=== PATIENT | female | born 1945 | race Hispanic/Latino ===

== ENCOUNTER 2017-02-13 19:50 | Observation (INO) | payer MEDICARE, OTHER ==
[2017-02-13] MEDS ORDERED: Albuterol-Ipratrop 3 mg / 0.5 (3 ml) UD INH STA ×2 (21:08→21:58)
[2017-02-13] MEDS ORDERED: Albuterol-Ipratrop 3 mg / 0.5 (3 ml) UD ONE ×2 (21:13→22:04)
[2017-02-13 21:28] LABS: BASO % 0.6 % (0.0-2.0); EOS # 0.1 K/uL (0.0-0.7); EOS % 1.4 % (0.0-4.0); LYMPH % 12.3 % (20.0-40.0); MEAN CELL VOLUME 84.6 fL (81.0-99.0); MEAN CORPUSCULAR HEMOGLOBIN 29.9 pg (27.0-31.0); MEAN CORPUSCULAR HGB CONC 35.3 g/dL (33.0-37.0); MONO # 0.8 K/uL (0.0-0.8); MONO % 9.1 % (0.0-10.0); NEUT # 6.5 K/uL (1.8-7.0); NEUT % 76.6 % (50.0-75.0); RBC 4.36 Mil/uL (3.80-5.20); RED CELL DISTRIBUTION WIDTH 15.1 % (11.5-14.5); WHITE BLOOD COUNT 8.5 K/uL (4.8-10.8)
[2017-02-13 21:38] LABS: ALB/GLOB RATIO 1.2 (1.0-2.1); INR 1.1; PROTHROMBIN TIME 12.4 SECONDS (9.7-12.2)
[2017-02-13 21:39] LABS: CALCIUM 9.5 mg/dl (8.6-10.4)
--- NOTE | 2017-02-13 22:50 | C.PDOC ---
History Of Present Illness 71 y/o female wiht hx copd, currently smokes, c/o productive cough with whit sputum and sob x 1 month, no fever or chills. pt using nebulizer at home 3 times a day with no improvement. pt also c/o pain to to dorsum of right hand that she woke up with today with no hx of injury to hand, no hx gout. Time Seen by Provider: 02/13/17 20:42 Chief Complaint (Nursing): Upper Extremity Problem/Injury History Per: Patient, Family History/Exam Limitations: no limitations Onset/Duration Of Symptoms: Days Current Symptoms Are (Timing): Worse Quality: "Pain" Severity: Moderate Recent travel outside of the [place]: No Past Medical History Reviewed: Historical Data, Nursing Documentation, Vital Signs Vital Signs: Last Vital Signs Temp 98.2 F 02/14/17 00:30 Pulse 111 H 02/14/17 00:30 Resp 18 02/14/17 01:52 BP 133/79 02/14/17 00:30 Pulse Ox 95 02/14/17 03:04 - Medical History PMH: COPD, HTN, Hyperlipidemia Other PMH: circulation problems Other Surgeries: bilateral lower ext stents Family History: States: Unknown Family Hx - Social History Hx Tobacco Use: Yes Hx Alcohol Use: No Hx Substance Use: No - Immunization History Hx Tetanus Toxoid Vaccination: No Hx Influenza Vaccination: Yes Hx Pneumococcal Vaccination: No Review Of Systems Constitutional: Positive for: Chills. Negative for: Fever ENT: Negative for: Ear Pain, Mouth Pain, Throat Pain Cardiovascular: Negative for: Chest Pain, Palpitations, Edema Respiratory: Positive for: Cough, Shortness of Breath, Pleuritic Pain, Sputum, Wheezing. Negative for: Hemoptysis Gastrointestinal: Negative for: Nausea, Vomiting, Abdominal Pain Genitourinary: Negative for: Dysuria, Frequency Musculoskeletal: Negative for: Neck Pain Skin: Negative for: Rash Neurological: Negative for: Weakness, Incoordination Physical Exam - Physical Exam Appears: Non-toxic, No Acute Distress Skin: Normal Color, Warm, Dry Head: Atraumatic, Normacephalic Eye(s): bilateral: Normal Inspection, PERRL, EOMI Nose: Normal Oral Mucosa: Moist Tongue: Normal Appearing Lips: Normal Appearing Throat: Normal Neck: Normal ROM, No Midline Cervical Tenderness, Paracervical Tenderness, Supple Chest: No Deformity (khyphotic), No Tenderness Cardiovascular: Rhythm Regular, No Murmur Respiratory: Decreased Breath Sounds, No Rales, Wheezing Gastrointestinal/Abdominal: Bowel Sounds, Tenderness Extremity: Tenderness (dorsum right wrist erythematous and warm, with swelling to hand and fingers. dec rom ant wrist 2/2 pain. ) Pulses: Left Dorsalis Pedis: Decreased, Right Dorsalis Pedis: Decreased (feet cool to touch) Neurological/Psych: Oriented x3, Normal Speech, Normal Cognition, Normal Cranial Nerves ED Course And Treatment - Laboratory Results Result Diagrams: 02/13/17 21:21 02/13/17 21:21 ECG: Interpreted By Me, Viewed By Me ECG Rhythm: Sinus Rhythm ECG Interpretation: Normal Rate From EC O2 Sat by Pulse Oximetry: 95 Medical Decision Making Medical Decision Making: pt still wheezing after first neb. treatment. poor effort on pf meter, pf less than 60. pt wheezing still after second meb tx. pt walked aorund ed; seated hr 111 o2 sat 95, after walking around in ed: o2 sat is 92 and hr [address] Brothers, will admit to his service Disposition Discussed With .: Александр Brothers Doctor Will See Patient In The: Hospital - Disposition Disposition: HOSPITALIZED Disposition Time: 23:09 Condition: STABLE - Clinical Impression Clinical Impression: COPD with exacerbation, Cellulitis of hand, right Decision To Admit - Pt Status Changed To: Hospital Disposition Of: Observation - . Bed Request Type: Regular Admitting Physician: Александр Brothers Patient Diagnosis: COPD with exacerbation, Cellulitis of hand, right
[2017-02-13] MEDS ORDERED: cefTRIAXone IV 1 gm in Dextros 50 ML IVPB ONE (23:17)
--- NOTE | 2017-02-14 01:43 | CP.PCM.HP ---
<Virginia GanLouise - Last Filed: 02/14/17 01:38> History of Present Illness - History of Present Illness History of Present Illness: CC: Shortness of breath and right hand pain HPI: Patient is a 71 year old female with PMHx of HTN, stents in legs for circulation, COPD, who comes in today for worsening shortness of breath. Patient has been having trouble breathing this past week and has been using 3 nebulizer treatments per day with some relief. The past day she did not get much relief from the nebulizer treatments and was very short of breath. Additionally, the patient woke up with right hand edema and erythema. Patient had no trauma or wound to the right hand. Patient is unable to close hand because of pain. Patient denies headache, chest pain, nausea, vomiting, abdominal pain, constipation, diarrhea. Patient lives with granddaughter, but is able to perform all of her ADLs alone and is independent. PMD: Dr. Laura Allergies:NKDA PMHx: HTN, COPD Psurgical: Stents in legs for circulation, appendectomy 50 years ago, abdominal hernia (2013) Famhx: father and mother of MIs Social: smokes 1/2 pack per day for 60 years. denies alcohol and drugs. Present on Admission - Present on Admission Any Indicators Present on Admission: No History of DVT/PE: No History of Uncontrolled Diabetes: No Urinary Catheter: No Decubitus Ulcer Present: No Review of Systems - Constitutional Constitutional: absent: Fatigue, Headache, Lethargy - EENT Eyes: absent: Blurred Vision Nose/Mouth/Throat: absent: Nasal Congestion, Post Nasal Drip, Mouth Pain, Neck Pain - Cardiovascular Cardiovascular: Dyspnea, Leg Edema. absent: Chest Pain, Palpitations - Respiratory Respiratory: Dyspnea, Dyspnea on Exertion - Gastrointestinal Gastrointestinal: absent: Constipation, Diarrhea, Vomiting - Musculoskeletal Musculoskeletal: Myalgias - Integumentary Integumentary: absent: Changing Lesions, Wounds - Neurological Neurological: absent: Behavioral Changes, Dizziness - Psychiatric Psychiatric: absent: Confusion - Endocrine Endocrine: absent: Fatigue, Palpitations - Hematologic/Lymphatic Hematologic: absent: Easy Bleeding, Easy Bruising Past Patient History - Infectious Disease Hx of Infectious Diseases: None - Past Medical History & Family History Past Medical History?: Yes - Past Social History Smoking Status: Former Smoker - CARDIAC Hx Cardiac Disorders: Yes Hx Hypertension: Yes Other/Comment: Hyperlipidemia - PULMONARY Hx Respiratory Disorders: Yes - NEUROLOGICAL Hx Neurological Disorder: No - HEENT Hx HEENT Problems: No - RENAL Hx Chronic Kidney Disease: No - ENDOCRINE/METABOLIC Hx Endocrine Disorders: No - HEMATOLOGICAL/ONCOLOGICAL Hx Blood Disorders: No - INTEGUMENTARY Hx Dermatological Problems: No - MUSCULOSKELETAL/RHEUMATOLOGICAL Hx Musculoskeletal Disorders: No - GASTROINTESTINAL Hx Gastrointestinal Disorders: No - GENITOURINARY/GYNECOLOGICAL Hx Genitourinary Disorders: No - PSYCHIATRIC Hx Psychophysiologic Disorder: No Hx Substance Use: No - SURGICAL HISTORY Hx Surgeries: Yes Other/Comment: 4 stents placed for blood clots in legs. - ANESTHESIA Hx Anesthesia: Yes Hx Anesthesia Reactions: No Hx Malignant Hyperthermia: No Has any member of the family had a problem w/ anesthesia?: No Meds Allergies/Adverse Reactions: Allergies Allergy/AdvReac Type Severity Reaction Status Date / Time No Known Allergies Allergy Verified 02/13/17 20:14 Physical Exam - Constitutional Appears: Non-toxic, No Acute Distress - Head Exam Head Exam: ATRAUMATIC, NORMAL INSPECTION, NORMOCEPHALIC - Eye Exam Eye Exam: EOMI, Normal appearance, PERRL - ENT Exam ENT Exam: Mucous Membranes Moist, Normal Exam - Neck Exam Neck exam: Positive for: Normal Inspection - Respiratory Exam Respiratory Exam: Rhonchi - Cardiovascular Exam Cardiovascular Exam: REGULAR RHYTHM, RRR - GI/Abdominal Exam GI & Abdominal Exam: Normal Bowel Sounds, Soft - Extremities Exam Extremities exam: Positive for: normal inspection, pedal edema Additional comments: trace pedal edema on left - Back Exam Back exam: NORMAL INSPECTION - Neurological Exam Neurological exam: Alert, Oriented x3 - Psychiatric Exam Psychiatric exam: Normal Affect, Normal Mood - Skin Skin Exam: Intact, Normal Color, Warm Results - Vital Signs Recent Vital Signs: Last Vital Signs Temp 98.2 F 02/14/17 00:30 Pulse 111 H 02/14/17 00:30 Resp 20 02/14/17 00:30 BP 133/79 02/14/17 00:30 Pulse Ox 95 02/14/17 00:30 - Labs Result Diagrams: 02/13/17 21:21 02/13/17 21:21 Assessment & Plan - Assessment and Plan (Free Text) Assessment: 1. COPD exacerbation solumedrol 60 q8h duonebs q4h pulm consult, Dr. Stokes, help appreciated 2l NC PRN cxray 2. Hand Erythema/Edema f/u wrist xray monitor 3. HTN Losartan 100 mg PO daily HCTZ 25 mg po daily Crestor 10 mg po HS 4. Hx stents Cilostazol 100 mg po daily Plavix 75 mg po daily 5. Prophylactic measures pepcid 20 mg po BID SCDs <Александр Brothers - Last Filed: 02/14/17 06:13> Results - Vital Signs Recent Vital Signs: Last Vital Signs Temp 98.2 F 02/14/17 00:30 Pulse 111 H 02/14/17 00:30 Resp 18 02/14/17 01:52 BP 133/79 02/14/17 00:30 Pulse Ox 95 02/14/17 03:11 - Labs Result Diagrams: 02/13/17 21:21 02/13/17 21:21 Assessment & Plan - Date & Time Date: 02/14/17 (I have seen and examined the patient. I agree with the findings and plan of care as documented by Dr. Gan. Patient with COPD exacerbation. Nebs, Solumedrol, oxygen, and consult to pulm. Smoking cessation recommended. Follow up official xray results for hand erythema and swelling. Denies trauma. Continue home meds for history of hypertension. Monitor for acute changes.) Time: 06:11 Attending/Attestation - Attestation I have personally seen and examined this patient.: Yes I have fully participated in the care of the patient.: Yes I have reviewed all pertinent clinical information: Yes
[2017-02-14] MEDS: Albuterol-Ipratrop 3 mg / 0.5 (3 ml) UD INH SCH ×4 (08:28→19:13)
[2017-02-14 08:29] VITALS: RESP 20
[2017-02-14] MEDS: Cilostazol 100 mg Tab UD PO SCH (09:45)
--- NOTE | 2017-02-14 09:57 | RAD ---
HISTORY: SOB COMPARISON: No prior. TECHNIQUE: Chest PA and lateral FINDINGS: LUNGS: Lung shea are hyperinflated ; rule out chronic changes of emphysema or COPD. Mild bibasilar atelectasis. Mild biapical pleural thickening PLEURA: No significant pleural effusion identified. No pneumothorax apparent. CARDIOVASCULAR: Heart size is upper limits of normal. . OSSEOUS STRUCTURES: Mild multilevel degenerative spondylosis of the thoracic spine mild chronic anterior wedge deformities of a few thoracic segments VISUALIZED UPPER ABDOMEN: Normal. OTHER FINDINGS: None. IMPRESSION: Mild hyperinflation; rule out chronic changes of emphysema or COPD. Mild bibasilar atelectasis. . Mild biapical pleural thickening.
--- NOTE | 2017-02-14 10:44 | RAD ---
PROCEDURE: Right wrist HISTORY: Redness and swelling COMPARISON: No prior FINDINGS: BONES: No evidence of acute displaced fracture nor dislocation. The osseous structures appear intact. 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 Triscaphe degenerative changes with DJD greater multangular/1st metacarpal. Small to medium-sized cystic focus seen within the navicular with smaller cystic changes in the capitate and lunate. Degenerative changes of the carpometacarpal articulations, MCP joints as well as the DIP joint 1st finger. Mild degenerative changes of the PIP joint 5th finger. JOINTS: As above. SOFT TISSUES: There is a tiny calcific density within the dorsal soft tissues at the level of the carpus nonspecific. This could represent some old posttraumatic mineralization. OTHER FINDINGS: None. IMPRESSION: No no definitive evidence of acute displaced fracture nor dislocation. Mcneal. Multi articular DJD as described. .
--- NOTE | 2017-02-14 18:07 | CP.PCM.PN ---
<Kevin Mayes - Last Filed: 02/14/17 17:45> Subjective - Date & Time of Evaluation Date of Evaluation: 02/14/17 Time of Evaluation: 17:45 - Subjective Subjective: PGY-[address] Suárez's service: Pt seen and examined at bedside. Nursing reports no acute events overnight. Pt reports breathing better this AM, especially after duoneb treatment. She denies getting up and walking around yet this morning, but feels like her shortness of breath is improved at rest. Pt reports continued pain in her right hand, she rates as 4/10 dull pain. 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 She reports history of arthritis that she had told PMD about, but denies any treatment as outpatient. Objective - Vital Signs/Intake and Output Vital Signs (last 24 hours): Temp Pulse Resp BP Pulse Ox 98.0 F 119 H 20 129/70 95 02/14/17 15:10 02/14/17 15:10 02/14/17 15:10 02/14/17 15:10 02/14/17 15:10 Intake and Output: 02/14/17 02/14/17 06:59 18:59 Intake Total 360 Balance 360 - Medications Medications: Current Medications Albuterol/Ipratropium (Duoneb 3 Mg/0.5 Mg (3 Ml) Ud) 3 ml INH RQ4 [facility] Last Admin: 02/14/17 15:29 Dose: 3 ml Cilostazol (Pletal) 100 mg PO DAILY [facility] Last Admin: 02/14/17 09:45 Dose: 100 mg Clopidogrel Bisulfate (Plavix) 75 mg PO DAILY [facility] Last Admin: 02/14/17 09:45 Dose: 75 mg Famotidine (Pepcid) 20 mg PO BID [facility] Last Admin: 02/14/17 17:15 Dose: 20 mg Hydrochlorothiazide (Hydrodiuril) 25 mg PO DAILY [facility] Last Admin: 02/14/17 09:45 Dose: 25 mg Losartan Potassium (Cozaar) 100 mg PO DAILY [facility] Last Admin: 02/14/17 09:45 Dose: 100 mg Methylprednisolone (Solu-Medrol) 60 mg IVP Q8H [facility] Last Admin: 02/14/17 14:21 Dose: 60 mg Pneumococcal Polyvalent Vaccine (Pneumovax 23 Vaccine) 0.5 ml IM .ONCE ONE Stop: 02/16/17 10:01 Rosuvastatin Calcium (Crestor) 10 mg PO HS [facility] - Labs Labs: PT 12.4 SECONDS (9.7-12.2) H 02/13/17 21:21 INR 1.1 02/13/17 21:21 APTT 27 SECONDS (21-34) 02/13/17 21:21 - Constitutional Appears: Non-toxic, No Acute Distress - Head Exam Head Exam: ATRAUMATIC, NORMAL INSPECTION - Eye Exam Eye Exam: EOMI. absent: Scleral icterus Pupil Exam: PERRL - ENT Exam ENT Exam: Mucous Membranes Moist - Respiratory Exam Respiratory Exam: Rhonchi, Wheezes (chronic smoker). absent: Decreased Breath Sounds - Cardiovascular Exam Cardiovascular Exam: Tachycardia, +S1, +S2 Additional comments: Pt right after breathing treatment - GI/Abdominal Exam GI & Abdominal Exam: Soft, Normal Bowel Sounds. absent: Tenderness - Extremities Exam Extremities Exam: Normal Inspection. absent: Pedal Edema, Tenderness Additional comments: no pitting edema on left - Neurological Exam Neurological Exam: Alert, Awake, Oriented x3 - Psychiatric Exam Psychiatric exam: Normal Affect, Normal Mood - Skin Skin Exam: Normal Color, Warm Assessment and Plan - Assessment and Plan (Free Text) Plan: 1. COPD exacerbation Pt reports intermediate history of smoking - uses nebulizer at home, denies home O2 CXR (02/14/17): Mild hyperinflation. R/o chronic changes of emphysema or COPD. Mild bibasilar atelectasis. Mild biapical pleural thickening. (see full report) solumedrol 60 q8h IV duonebs q4h pulm consult, Dr. Stokes, help appreciated -f/u reccs 2l NC PRN 2. Hand Erythema/Edema Pt reports history of arthritis Wrist Xray (02/14/17): No definitive evidence of acute displaced fracture nor dislocation. Multi-articular DJD as described. (see full report) Tylenol 650mg PO for pain NSAIDs C/I 3. HTN Normotensive today Losartan 100 mg PO daily HCTZ 25 mg po daily 4. CAD Crestor 10 mg po HS 5. PVD with Hx stents Cilostazol 100 mg po daily Plavix 75 mg po daily 6. Prophylactic measures Pepcid 20 mg po BID SCDs Heparin 5000u SC Q12H Discussed with Dr. Kamini Mayes PGY-1 <Alyssa Suárez V - Last Filed: 02/14/17 22:03> Objective - Vital Signs/Intake and Output Vital Signs (last 24 hours): Temp Pulse Resp BP Pulse Ox 98.0 F 119 H 20 129/70 95 02/14/17 15:10 02/14/17 15:10 02/14/17 15:10 02/14/17 15:10 02/14/17 15:10 Intake and Output: 02/14/17 02/15/17 18:59 06:59 Intake Total 360 Balance 360 - Medications Medications: Current Medications Acetaminophen (Tylenol 325mg Tab) 650 mg PO Q6 PRN PRN Reason: Pain, Mild (1-3) Albuterol/Ipratropium (Duoneb 3 Mg/0.5 Mg (3 Ml) Ud) 3 ml INH RQ4 [facility] Last Admin: 02/14/17 19:13 Dose: 3 ml Cilostazol (Pletal) 100 mg PO DAILY [facility] Last Admin: 02/14/17 09:45 Dose: 100 mg Clopidogrel Bisulfate (Plavix) 75 mg PO DAILY [facility] Last Admin: 02/14/17 09:45 Dose: 75 mg Famotidine (Pepcid) 20 mg PO BID [facility] Last Admin: 02/14/17 17:15 Dose: 20 mg Heparin Sodium (Porcine) (Heparin) 5,000 units SC Q12 [facility] Last Admin: 02/14/17 21:17 Dose: 5,000 units Hydrochlorothiazide (Hydrodiuril) 25 mg PO DAILY [facility] Last Admin: 02/14/17 09:45 Dose: 25 mg Losartan Potassium (Cozaar) 100 mg PO DAILY [facility] Last Admin: 02/14/17 09:45 Dose: 100 mg Methylprednisolone (Solu-Medrol) 60 mg IVP Q8H [facility] Last Admin: 02/14/17 21:17 Dose: 60 mg Pneumococcal Polyvalent Vaccine (Pneumovax 23 Vaccine) 0.5 ml IM .ONCE ONE Stop: 02/16/17 10:01 Rosuvastatin Calcium (Crestor) 10 mg PO HS [facility] Last Admin: 02/14/17 21:16 Dose: 10 mg - Labs Labs: PT 12.4 SECONDS (9.7-12.2) H 02/13/17 21:21 INR 1.1 02/13/17 21:21 APTT 27 SECONDS (21-34) 02/13/17 21:21 Attending/Attestation - Attestation I have personally seen and examined this patient.: Yes I have fully participated in the care of the patient.: Yes I have reviewed all pertinent clinical information, including history, physical exam and plan: Yes Notes (Text): Patient seen, examined, and case discussed with day-time resident. Patient seen in the morning during nebulizer treatment. Patient reports breathing is very good. Patient reports her main issue is her right hand which appears visibly more swollen compared to her left hand. Patient denies trauma to the right hand. Denies allergies. Patient reports history of arthritis but has not swelling quite like this. Reviewed patient's hand xray no acute fracture. Patient is currently on IV steroids to address COPD exacerbation; which will reduce inflammation coincidently. Patient order for dose Lasix 20mg IVX1 to reduce swelling as well. Awaiting initial pulm eval Assessment/Plan 1. 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 R/o chronic changes of emphysema or COPD. Mild bibasilar atelectasis. Mild biapical pleural thickening. (see full report) * Will lower to Solumedrol 40mg IV Q 8 hours * duonebs q4h * Pulm consult, Dr. Stokes, help appreciated * f/u reccs * 2l NC PRN 2. Hand Erythema/Edema * Pt reports history of arthritis; unclear if OA or rheumatoid arthritis * Wrist Xray (02/14/17): No definitive evidence of acute displaced fracture nor dislocation. Multi-articular DJD as described. (see full report) * Tylenol 650mg PO for pain * NSAIDs C/I * Given dose of Lasix 20mg IV to reduce swelling 3. Hypertension * Losartan 100 mg PO daily * HCTZ 25 mg po daily 4. CAD * Crestor 10 mg po HS * Plavix 75 mg po daily * Losartan 100 mg PO daily * HCTZ 25 mg po daily 5. PVD with Hx stents * Cilostazol 100 mg po daily * Plavix 75 mg po daily 6. Prophylactic measures * Pepcid 20 mg po BID * contraindcations SCDs secondary to PVD * Heparin 5000u SC Q12H * Physical therapy eval
[2017-02-14] MEDS ORDERED: MethylPREDNISolone 40 mg Vial IVP SCH (22:04)
[2017-02-14] MEDS ORDERED: Promethazine/Cod 6.25mg-10mg/5ml Syr UD PO PRN (22:05)
[2017-02-15] MEDS: Albuterol-Ipratrop 3 mg / 0.5 (3 ml) UD INH SCH ×5 (00:54→16:00)
[2017-02-15] MEDS: MethylPREDNISolone 40 mg Vial IVP SCH ×2 (05:50→13:26)
--- NOTE | 2017-02-15 07:16 | CP.PCM.CON ---
History of Present Illness - History of Present Illness History of Present Illness: admitted for exacerbation of copd, only uses a neb at home smoker Review of Systems - Respiratory Respiratory: Dyspnea on Exertion Past Patient History - Infectious Disease Hx of Infectious Diseases: None - Past Medical History & Family History Past Medical History?: Yes - Past Social History Smoking Status: Former Smoker - CARDIAC Hx Hypertension: Yes - PULMONARY Hx Chronic Obstructive Pulmonary Disease (COPD): Yes - NEUROLOGICAL Hx Neurological Disorder: No - HEENT Hx HEENT Problems: No - RENAL Hx Chronic Kidney Disease: No - ENDOCRINE/METABOLIC Hx Endocrine Disorders: No - HEMATOLOGICAL/ONCOLOGICAL Hx Blood Disorders: No - INTEGUMENTARY Hx Dermatological Problems: No - MUSCULOSKELETAL/RHEUMATOLOGICAL Hx Falls: No - GASTROINTESTINAL Hx Gastrointestinal Disorders: No - GENITOURINARY/GYNECOLOGICAL Hx Genitourinary Disorders: No - PSYCHIATRIC Hx Substance Use: No - SURGICAL HISTORY Hx Surgeries: Yes Other/Comment: 4 stents placed for blood clots in legs. - ANESTHESIA Hx Anesthesia: Yes Hx Anesthesia Reactions: No Hx Malignant Hyperthermia: No Has any member of the family had a problem w/ anesthesia?: No Meds Allergies/Adverse Reactions: Allergies Allergy/AdvReac Type Severity Reaction Status Date / Time No Known Allergies Allergy Verified 02/13/17 20:14 - Medications Medications: Current Medications Acetaminophen (Tylenol 325mg Tab) 650 mg PO Q6 PRN PRN Reason: Pain, Mild (1-3) Albuterol/Ipratropium (Duoneb 3 Mg/0.5 Mg (3 Ml) Ud) 3 ml INH RQ4 [facility] Last Admin: 02/15/17 04:08 Dose: Not Given Cilostazol (Pletal) 100 mg PO DAILY [facility] Last Admin: 02/14/17 09:45 Dose: 100 mg Clopidogrel Bisulfate (Plavix) 75 mg PO DAILY [facility] Last Admin: 02/14/17 09:45 Dose: 75 mg Famotidine (Pepcid) 20 mg PO BID [facility] Last Admin: 02/14/17 17:15 Dose: 20 mg Heparin Sodium (Porcine) (Heparin) 5,000 units SC Q12 [facility] Last Admin: 02/14/17 21:17 Dose: 5,000 units Hydrochlorothiazide (Hydrodiuril) 25 mg PO DAILY [facility] Last Admin: 02/14/17 09:45 Dose: 25 mg Losartan Potassium (Cozaar) 100 mg PO DAILY [facility] Last Admin: 02/14/17 09:45 Dose: 100 mg Methylprednisolone (Solu-Medrol) 40 mg IVP Q8 [facility] Last Admin: 02/15/17 05:50 Dose: 40 mg Pneumococcal Polyvalent Vaccine (Pneumovax 23 Vaccine) 0.5 ml IM .ONCE ONE Stop: 02/16/17 10:01 Promethazine HCl/Codeine (Phenergan/Codeine Oral Syrup) 5 ml PO Q4 PRN PRN Reason: Cough Rosuvastatin Calcium (Crestor) 10 mg PO HS [facility] Last Admin: 02/14/17 21:16 Dose: 10 mg Physical Exam - Constitutional Appears: No Acute Distress - Head Exam Head Exam: ATRAUMATIC, NORMOCEPHALIC - Eye Exam Eye Exam: Normal appearance - ENT Exam ENT Exam: Mucous Membranes Moist - Respiratory Exam Respiratory Exam: Decreased Breath Sounds - Cardiovascular Exam Cardiovascular Exam: +S1, +S2 - GI/Abdominal Exam GI & Abdominal Exam: Normal Bowel Sounds - Rectal Exam Rectal Exam: Deferred - Neurological Exam Neurological exam: Alert, Oriented x3 - Psychiatric Exam Psychiatric exam: Normal Affect, Normal Mood - Skin Skin Exam: Intact Results - Vital Signs Recent Vital Signs: Last Vital Signs Temp 98.3 F 02/15/17 00:00 Pulse 105 H 02/15/17 00:00 Resp 20 02/15/17 00:00 BP 126/67 02/15/17 00:00 Pulse Ox 95 02/15/17 00:00 - Labs Result Diagrams: 02/13/17 21:21 02/13/17 21:21 Assessment & Plan (1) COPD with exacerbation Status: Acute Comment: will need controler inhalers at home in addition to neb. smoking cessation (2) Tobacco abuse Status: Acute
[2017-02-15 07:57] LABS: BASO % 0.1 % (0.0-2.0); HEMOGLOBIN 12.3 g/dL (11.0-16.0); LYMPH # 0.6 K/uL (1.0-4.3); LYMPH % 3.2 % (20.0-40.0); MEAN CELL VOLUME 83.4 fL (81.0-99.0); MEAN CORPUSCULAR HEMOGLOBIN 29.2 pg (27.0-31.0); MEAN PLATELET VOLUME 7.3 fL (7.2-11.7); MONO # 0.6 K/uL (0.0-0.8); MONO % 3.6 % (0.0-10.0); NEUT # 15.9 K/uL (1.8-7.0); NEUT % 93.1 % (50.0-75.0); PLATELET COUNT 248 K/uL (130-400); RED CELL DISTRIBUTION WIDTH 14.8 % (11.5-14.5)
[2017-02-15 07:59] LABS: WHITE BLOOD COUNT 17.1 K/uL (4.8-10.8)
[2017-02-15] MEDS ORDERED: Tiotropium 18 mcg Cap For Inhalation INH SCH (08:00)
[2017-02-15] MEDS ORDERED: Fluticasone-Salmeterol 250-50mcg Diskus INH SCH (08:00)
[2017-02-15 08:17] LABS: ALBUMIN 3.7 g/dL (3.5-5.0)
[2017-02-15 08:20] LABS: ALB/GLOB RATIO 1.3 (1.0-2.1)
[2017-02-15 08:21] LABS: CALCIUM 8.9 mg/dl (8.6-10.4); URIC ACID 4.8 mg/dL (2.2-7.5)
[2017-02-15 08:22] LABS: MAGNESIUM 1.8 mg/dL (1.6-2.3)
[2017-02-15 08:24] VITALS: BP 127/67; PULSE 96; O2SAT 97
[2017-02-15 08:41] LABS: LYMPHOCYTE 3 % (20-40); TOTAL CELLS COUNTED 100
[2017-02-15 08:42] LABS: MONOCYTE 1 % (0-10); NEUTROPHIL 96 % (50-75); PLATELET ESTIMATE NORMAL (NORMAL)
[2017-02-15] MEDS: Cilostazol 100 mg Tab UD PO SCH (09:40)
[2017-02-15] MEDS ORDERED: Pneumococcal 23-Valent Vaccine IM ONE (14:00)
[2017-02-15 16:00] VITALS: TEMP 97.3
[2017-02-15] MEDS ORDERED: MethylPREDNISolone 40 mg Vial IVP SCH (22:00)
--- NOTE | 2017-02-15 23:23 | CP.PCM.DIS ---
Provider - Provider Date of Admission: 02/13/17 23:06 Attending physician: Александр Brothers MD Primary care physician: DR. FRANCI LAURA (PMD) Consults: Pulm: Kike Time Spent in preparation of Discharge (in minutes): 40 Diagnosis - Discharge Diagnosis (1) COPD with exacerbation Status: Acute Comment: see hospital course (2) Osteoarthritis Status: Acute Comment: Right wrist/hand xray: evidence of osteoarthritis (see full report) Hospital Course - Lab Results Lab Results: Most Recent Lab Values WBC 17.1 K/uL (4.8-10.8) H D 02/15/17 07:28 RBC 4.20 Mil/uL (3.80-5.20) 02/15/17 07:28 Hgb 12.3 g/dL (11.0-16.0) 02/15/17 07: Hct 35.0 % (34.0-47.0) 02/15/17 07:28 MCV 83.4 fL (81.0-99.0) 02/15/17 07:28 MCH 29.2 pg (27.0-31.0) 02/15/17 07:28 MCHC 35.0 g/dL (33.0-37.0) 02/15/17 07:28 RDW 14.8 % (11.5-14.5) H 02/15/17 07:28 Plt Count 248 K/uL (130-400) 02/15/17 07:28 MPV 7.3 fL (7.2-11.7) 02/15/17 07:28 Neut % (Auto) 93.1 % (50.0-75.0) H 02/15/17 07:28 Lymph % (Auto) 3.2 % (20.0-40.0) L 02/15/17 07:28 [place] % (Auto) 3.6 % (0.0-10.0) 02/15/17 07:28 Eos % (Auto) 0.0 % (0.0-4.0) 02/15/17 07:28 Baso % (Auto) 0.1 % (0.0-2.0) 02/15/17 07:28 Neut # 15.9 K/uL (1.8-7.0) H 02/15/17 07:28 Lymph # 0.6 K/uL (1.0-4.3) L 02/15/17 07:28 [place] # 0.6 K/uL (0.0-0.8) 02/15/17 07:28 Eos # 0.0 K/uL (0.0-0.7) 02/15/17 07:28 Baso # 0.0 K/uL (0.0-0.2) 02/15/17 07:28 Neutrophils % (Manual) 96 % (50-75) H 02/15/17 07:28 Lymphocytes % (Manual) 3 % (20-40) L 02/15/17 07:28 Monocytes % (Manual) 1 % (0-10) 02/15/17 07:28 Platelet Estimate Normal (NORMAL) 02/15/17 07:28 RBC Morphology Normal 02/15/17 07:28 ESR 26 mm/hr (0-20) H 02/15/17 07:28 PT 12.4 SECONDS (9.7-12.2) H 02/13/17 21:21 INR 1.1 02/13/17 21:21 APTT 27 SECONDS (21-34) 02/13/17 21:21 Sodium 135 mmol/L (132-148) 02/15/17 07:28 Potassium 4.0 mmol/L (3.6-5.2) 02/15/17 07:28 Chloride 94 mmol/L (98-107) L 02/15/17 07:28 Carbon Dioxide 27 mmol/L (22-30) 02/15/17 07:28 Anion Gap 18 (10-20) 02/15/17 07:28 BUN 40 mg/dL (7-17) H 02/15/17 07:28 Creatinine 1.3 MG/DL (0.7-1.2) H 02/15/17 07:28 Est GFR ( Amer) 49 02/15/17 07:28 Est GFR (Non-Af Amer) 40 02/15/17 07:28 Random Glucose 223 mg/dL (65-105) H 02/15/17 07:28 Hemoglobin A1c 6.8 % (4.2-6.5) H 02/15/17 07:28 Uric Acid 4.8 mg/dL (2.2-7.5) 02/15/17 07:28 Calcium 8.9 mg/dl (8.6-10.4) 02/15/17 07:28 Phosphorus 3.3 mg/dL (2.5-4.5) 02/15/17 07:28 Magnesium 1.8 mg/dL (1.6-2.3) 02/15/17 07:28 Total Bilirubin 0.5 mg/dL (0.2-1.3) 02/15/17 07:28 AST 17 U/L (14-36) 02/15/17 07:28 ALT 23 U/L (9-52) 02/15/17 07:28 Alkaline Phosphatase 62 U/L (38-126) 02/15/17 07:28 C-React Prot High Sens > 15.00 mg/L (1.00-3.00) H 02/15/17 07:28 Total Protein 6.6 g/dL (6.3-8.3) 02/15/17 07:28 Albumin 3.7 g/dL (3.5-5.0) 02/15/17 07:28 Globulin 2.9 gm/dL (2.2-3.9) 02/15/17 07:28 Albumin/Globulin Ratio 1.3 (1.0-2.1) 02/15/17 07:28 Triglycerides 39 mg/dL (0-149) 02/15/17 07:28 Cholesterol 133 mg/dL (0-199) 02/15/17 07:28 LDL Cholesterol Direct 56 mg/dL (0-129) 02/15/17 07:28 HDL Cholesterol 62 mg/dL (30-70) 02/15/17 07:28 AQUILES 6 Profile Negative (NEGATIVE) 02/15/17 07:28 - Hospital Course Hospital Course: On admission: HPI: Patient is a 71 year old female with PMHx of HTN, stents in legs for circulation, COPD, who comes in today for worsening shortness of breath.l Patient has been having trouble breathing this past week and has been using 3 nebulizer treatments per day with some relief. The past day she did not get much relief from the nebulizer treatments and was very short of breath. Additionally, the patient is unable to close hand because of pain. Patient denies headache, chest pain, nausea, vomiting, abdominal pain, constipation, diarrhea. Patient lives with granddaughter, but is able to perform all of her ADLs alone and is independent. Hospital Course Patient was seen in the emergency department where she received a nebulizer treatment. On 02/13/2017 patient received a Chest X-ray that showed mild hyperinfiltration , rule out chronic changes of emphysema or COPD. Mild bibasilar atelectasis. Mild biapical pleural thickening. Patient also received a Wrist X-ray of the Right wrist that showed no acute displaced fracture. 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 Triscaphe degenerative changes with DJD greater multiangular 1st metacarpal. Small to medium-sized cystic focus seen within the navicular with smaller cystic changes in the capitate and lunate. Degenerative changes of the carpometacarpal articulations, MCP joints as well as the DIP joint in the 1st finger. Mild degenerative changes of the PIP joint 5th finger. Pt started on Duonebs, IV solumedrol, and tylenol with codeine for cough. Pt denied need for pain med for hand. Pts breathing improved over course. On 2013 patient was seen by Dr. Helio Stokes who recommended the patient be discharged with the addition of Adviar and Incruse Ellipta as well as continued inhalers at home in addition to nebulizer and smoking cessation. He wrote for PFT as outpatient. Workup for arthritis: ESR, CRP, AQUILES, with reflex, uric acid pending at time of discharge. Lipid panel and A1c ordered for cardiac factor gauge. Deemed stable for DC on 02/15/17 - Date & Time of H&P Date of H&P: 02/14/17 Time of H&P: 01:38 Discharge Exam - Head Exam Head Exam: ATRAUMATIC, NORMOCEPHALIC - Eye Exam Eye Exam: EOMI, PERRL Pupil Exam: NORMAL ACCOMODATION, PERRL - ENT Exam ENT Exam: Mucous Membranes Moist - Neck Exam Neck exam: Normal Inspection - Respiratory Exam Respiratory Exam: Clear to PA & Lateral, Wheezes. absent: Rales, Rhonchi - Cardiovascular Exam Cardiovascular Exam: REGULAR RHYTHM, +S1, +S2 - GI/Abdominal Exam GI & Abdominal Exam: Normal Bowel Sounds. absent: Tenderness - Extremities Exam Extremities exam: normal capillary refill - Back Exam Back exam: NORMAL INSPECTION - Neurological Exam Neurological exam: Alert, Oriented x3 - Psychiatric Exam Psychiatric exam: Normal Affect, Normal Mood - Skin Skin Exam: Dry, Normal Color, Warm Discharge Plan - Discharge Medications Prescriptions: Fluticasone/Salmeterol 250/50 [Advair Diskus] 1 puff IH Q12 #1 puff predniSONE [Prednisone] 40 mg PO DAILY #5 tab Umeclidinium [place] [Incruse Ellipta] 62.5 mcg IH DAILY #1 ml - Follow Up Plan Condition: GOOD Disposition: HOME/ ROUTINE Instructions: Prednisone (By mouth), Fluticasone (By breathing), Fluticasone/ Salmeterol (By breathing), Cellulitis (DC), COPD (Chronic Obstructive Pulmonary Disease) (DC) Additional Instructions: Pt stable for discharge per Dr. Suárez She has been prescribed the following medications: Prednisone, Adviar diskus, and Spiriva. The patient should follow up with her PMD, Dr. Laura, within one week's time as follow up to this admission. She should specifically discuss with him her osteoarthritis treatment moving forward as well as COPD management. Additionally the nutritionists she saw in the hospital, Dr. Stokes, has recommended outpatient pulmonary function test. A prescription was provided for this test. If symptoms return pt is to immediately return to the emergency department. Instructions given to the pt in [place], who verbalized understanding. Medications: Advair 250/50 diskus, one puff every twelve hours Incruse Ellipta 62.5, one puff inhaled daily Prednisone 40mg, one tab PO Daily Prescribed examination: Pulmonary Function Test (PFT)
[2017-02-16] MEDS ORDERED: Pneumococcal 23-Valent Vaccine IM ONE (10:00)
--- NOTE | 2017-02-16 16:57 | CARD ---
APPROVED REPORT EKG Measurement Heart [id number] <Conclusion> Normal sinus rhythm Normal ECG
== END 2017-02-15 16:50 | disposition home or self-care (01) ==
LOC: C.ER 19:50 → C.9E 23:06 → C.3T 23:38
PROVIDERS: ADMIT Family Medicine; ATTEND Family Medicine
DX: J44.1 Chronic obstructive pulmonary disease with (acute) exacerbation (principal); L03.113 Cellulitis of right upper limb; I73.9 Peripheral vascular disease, unspecified; I25.10 Atherosclerotic heart disease of native coronary artery without angina pectoris; I10 Essential (primary) hypertension; F17.200 Nicotine dependence, unspecified, uncomplicated; E78.5 Hyperlipidemia, unspecified
CPT/HCPCS: 36415; 71020; 73110; 80053; 80061; 83036; 83735; 84100; 84550; 85025; 85610; 85651; 85730; 86038; 86140; 87040; 94640; 94760; 96365; 96374; 97116; 97162; 97165; 97530; 99284; G0378; G8978; G8979; G8987; G8988; G8989; J0696; J1644; J1940; J2920; J2930

== ENCOUNTER 2017-03-10 23:20 | Inpatient (IN) | payer MEDICARE ==
[2017-03-11] MEDS ORDERED: Albuterol-Ipratrop 3 mg / 0.5 (3 ml) UD ONE ×3 (00:26→00:49)
--- NOTE | 2017-03-11 00:26 | C.PDOC ---
Time Seen by Provider: 03/11/17 00:25 Chief Complaint (Nursing): Lower Extremity Problem/Injury Past Medical History Vital Signs: Last Vital Signs Temp 99 F 03/10/17 23:31 Pulse 122 H 03/10/17 23:31 Resp 26 H 03/10/17 23:31 BP 129/81 03/10/17 23:31 Pulse Ox 97 03/10/17 23:31 - Medical History PMH: COPD, HTN, Hypercholesterolemia, Hyperlipidemia Denies: Chronic Kidney Disease Family History: States: Unknown Family Hx - Social History Hx Tobacco Use: Yes Hx Alcohol Use: No Hx Substance Use: No - Immunization History Hx Tetanus Toxoid Vaccination: No Hx Influenza Vaccination: No Hx Pneumococcal Vaccination: No ED Course And Treatment ECG: Interpreted By Me, Viewed By Me ECG Rhythm: Sinus Tachycardia (118), Nonspecific Changes O2 Sat by Pulse Oximetry: 97 Pulse Ox Interpretation: Normal Disposition Counseled Patient/Family Regarding: Studies Performed, Diagnosis - Disposition Disposition Time: 00:26 Forms: [employer] (Y[place]i)
--- NOTE | 2017-03-11 00:29 | C.PDOC ---
History Of Present Illness 71 y/o female c/o bilateral leg swelling for the past few days. Symptom is 4/10 in discomfort. Patient reports some SOB. Patient still smokes half a pack a day. Patient is speaking in full sentences. Denies fever, chills, nausea, vomiting, chest pain, light headedness, weakness, numbness, or dizziness. Time Seen by Provider: 03/11/17 00:25 Chief Complaint (Nursing): Lower Extremity Problem/Injury History Per: Patient History/Exam Limitations: no limitations Onset/Duration Of Symptoms: Days Current Symptoms Are (Timing): Still Present Severity: Mild Pain Scale Rating Of: 4 Reports Recently: Seen In ED, Treated By A Physician, Hospitalized Recent travel outside of the [place]: No Additional History Per: Patient Past Medical History Reviewed: Historical Data, Nursing Documentation, Vital Signs Vital Signs: Last Vital Signs Temp 99 F 03/10/17 23:31 Pulse 116 H 03/11/17 00:00 Resp 24 03/11/17 00:00 BP 142/78 03/11/17 00:00 Pulse Ox 97 03/11/17 01:20 - Medical History PMH: COPD, HTN, Hypercholesterolemia, Hyperlipidemia Denies: Chronic Kidney Disease Family History: States: No Known Family Hx - Social History Hx Tobacco Use: Yes Hx Alcohol Use: No Hx Substance Use: No - Immunization History Hx Tetanus Toxoid Vaccination: No Hx Influenza Vaccination: No Hx Pneumococcal Vaccination: No Review Of Systems Constitutional: Negative for: Fever, Chills, Sweats ENT: Negative for: Throat Pain Cardiovascular: Negative for: Chest Pain, Palpitations, Light Headedness Respiratory: Positive for: Cough Gastrointestinal: Negative for: Nausea, Vomiting Genitourinary: Negative for: Dysuria Musculoskeletal: Positive for: Leg Pain (Swelling) Skin: Negative for: Rash, Lesions Neurological: Negative for: Weakness, Numbness, Dizziness Psych: Negative for: Anxiety Physical Exam - Physical Exam Appears: Non-toxic, No Acute Distress Skin: Warm, Dry Head: Normacephalic Eye(s): bilateral: Normal Inspection Nose: No Flaring Oral Mucosa: Moist Teeth: Edentulous Neck: Supple Chest: Symmetrical Cardiovascular: Rhythm Regular (Tachycardic) Respiratory: Decreased Breath Sounds, No Rales, Rhonchi (at the bases), Wheezing (Scattered ) Gastrointestinal/Abdominal: Soft, No Tenderness Back: No CVA Tenderness Extremity: Normal ROM, Pedal Edema (Bilateral foot edema to the dorsum of the feet), Capillary Refill (<2secs) Extremity: Bilateral: Atraumatic, Other (dorsum feet edema) Pulses: Left Dorsalis Pedis: Normal, Right Dorsalis Pedis: Normal Neurological/Psych: Oriented x3 (Awake and alert), Normal Speech, Normal Cognition, Other (No focal deficit) Gait: Steady ED Course And Treatment - Laboratory Results Result Diagrams: 03/11/17 01:04 03/11/17 01:04 ECG: Interpreted By Me, Viewed By Me ECG Rhythm: Sinus Tachycardia (118), Nonspecific Changes O2 Sat by Pulse Oximetry: 97 (RA) Pulse Ox Interpretation: Normal - Radiology CXR: Interpreted by Me, Viewed By Me CXR Interpretation: Yes: COPD, Other (unchanged from 02/13/17). No: Infiltrates , Fracture, Pnemothorax Disposition Discussed With DrLouise: Александр Brothers Comment: accepted the pt on his service and took over the care at 2:30 AM Doctor Will See Patient In The: ED Counseled Patient/Family Regarding: Studies Performed, Diagnosis - Disposition Disposition: HOSPITALIZED Disposition Time: 00:29 Condition: FAIR Forms: [facility] (Tai[place]ese) - POA Present On Arrival: Poor Glycemic Control - Clinical Impression Clinical Impression: COPD with exacerbation, CHF (congestive heart failure), Leg edema - Scribe Statement The provider has reviewed the documentation as recorded by the Scribe Shu goldstein All medical record entries made by the Scribe were at my direction and personally dictated by me. I have reviewed the chart and agree that the record accurately reflects my personal performance of the history, physical exam, medical decision making, and the department course for this patient. I have also personally directed, reviewed, and agree with the discharge instructions and disposition. Decision To Admit - Pt Status Changed To: Hospital Disposition Of: Inpatient - Admit Certification Admit to Inpatient:: After my assessment, the patient will require hospitalization for at least two midnights. This is because of the severity of symptoms shown, intensity of services needed, and/or the medical risk in this patient being treated as an outpatient. - InPatient: Physician Admission Certification: I certify that this patient requires 2 or more midnights of care for the following reason:: After my assessment, the patient will require hospitalization for at least two midnights. This is because of the severity of symptoms shown, intensity of services needed, and/or the medical risk in this patient being treated as an outpatient. - . Bed Request Type: Telemetry Admitting Physician: Александр Brothers Patient Diagnosis: COPD with exacerbation, CHF (congestive heart failure), Leg edema
[2017-03-11] MEDS: Albuterol-Ipratrop 3 mg / 0.5 (3 ml) UD IH SCH ×3 (00:30→01:00)
[2017-03-11 00:46] LABS: DRAW SITE RB
[2017-03-11 01:16] LABS: INR 1.2
[2017-03-11 01:18] LABS: BASO % 0.5 % (0.0-2.0); EOS # 0.1 K/uL (0.0-0.7); EOS % 0.8 % (0.0-4.0); HEMATOCRIT 32.9 % (34.0-47.0); LYMPH % 13.6 % (20.0-40.0); MEAN CELL VOLUME 84.1 fL (81.0-99.0); MEAN CORPUSCULAR HEMOGLOBIN 28.6 pg (27.0-31.0); MEAN CORPUSCULAR HGB CONC 33.9 g/dL (33.0-37.0); MONO % 13.1 % (0.0-10.0); RED CELL DISTRIBUTION WIDTH 14.7 % (11.5-14.5); WHITE BLOOD COUNT 7.7 K/uL (4.8-10.8)
[2017-03-11 01:25] LABS: CHLORIDE 94 mmol/L (98-107); SODIUM 134 mmol/L (132-148)
[2017-03-11 01:26] LABS: POTASSIUM 3.8 mmol/L (3.6-5.2)
[2017-03-11 01:28] LABS: ALKALINE PHOSPHATASE 69 U/L (38-126); AST/SGOT 26 U/L (14-36); BILIRUBIN,TOTAL 0.9 mg/dL (0.2-1.3); BLOOD UREA NITROGEN 15 mg/dL (7-17); CARBON DIOXIDE 30 mmol/L (22-30); GFR AFRICAN-AMERICAN > 60; GLUCOSE,RANDOM 142 mg/dL (65-105); TOTAL PROTEIN 6.8 g/dL (6.3-8.3)
[2017-03-11 01:29] LABS: ALT/SGPT 25 U/L (9-52); CALCIUM 9.2 mg/dl (8.6-10.4); MAGNESIUM 1.8 mg/dL (1.6-2.3)
[2017-03-11] MEDS ORDERED: Albuterol-Ipratrop 3 mg / 0.5 (3 ml) UD INH PRN (03:28)
--- NOTE | 2017-03-11 03:31 | CP.PCM.HP ---
<Blossom Izzy MORRIS - Last Filed: 03/11/17 03:58> History of Present Illness - History of Present Illness History of Present Illness: CC: "My feet are swollen" Patient is a 71 year old female with PMHx of HTN, COPD, HLD who presents with complaint of bilateral feet swelling since Wednesday. Patient states she woke up with the feet swelling on Wednesday. Patient states she has had feet swelling before but not as severe. Patient states that her left leg feels more swollen than right and both feet are painful. Patient denies difficulty breathing and states she uses nebulizer at home occasionally. Patient has chronic cough that is occasionally produtive of clear sputum, but patient states this is unchanged from her baseline. Patient states she usually sleeps with 1-2 pillows but does not like to lay completely flat. Patient states she walks to worship every weekend, which is about 5 blocks from her home. Patient states she normally takes one break to rest during that walk and was able to walk this past weekend as she normally does. Patient denies prior diagnosis of heart failure but does state there is significant cardiac history in her family. Patient denies chest pain, palpitations, diaphoresis, weakness, dizziness. 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 absent: Chest Pain, Dyspnea, Lightheadedness, Orthopnea - Respiratory Respiratory: Cough - Gastrointestinal Gastrointestinal: absent: Abdominal Pain, Nausea, Vomiting - Genitourinary Genitourinary: absent: Difficulty Urinating, Dysuria - Musculoskeletal Musculoskeletal: Back Pain, Stiffness - Integumentary Integumentary: Swelling. absent: Rash, Sores - Neurological Neurological: absent: Confusion, Disequilibrium, Dizziness, Focal Weakness Past Patient History - Infectious Disease Hx of Infectious Diseases: None - Past Medical History & Family History Past Medical History?: Yes - Past Social History Smoking Status: Heavy Smoker > 10 Cigarettes Daily - CARDIAC Hx Hypercholesterolemia: Yes Hx Hypertension: Yes - PULMONARY Hx Chronic Obstructive Pulmonary Disease (COPD): Yes - NEUROLOGICAL Hx Neurological Disorder: No - HEENT Hx HEENT Problems: No - RENAL Hx Chronic Kidney Disease: No - ENDOCRINE/METABOLIC Hx Endocrine Disorders: No - HEMATOLOGICAL/ONCOLOGICAL Hx Blood Disorders: No - INTEGUMENTARY Hx Dermatological Problems: No - MUSCULOSKELETAL/RHEUMATOLOGICAL Hx Falls: No - GASTROINTESTINAL Hx Gastrointestinal Disorders: No - GENITOURINARY/GYNECOLOGICAL Hx Genitourinary Disorders: No - PSYCHIATRIC Hx Substance Use: No - SURGICAL HISTORY Hx Surgeries: Yes Hx Herniorrhaphy: Yes Hx Thyroidectomy: Yes Other/Comment: 4 stents placed for blood clots in legs. - ANESTHESIA Hx Anesthesia: Yes Hx Anesthesia Reactions: No Hx Malignant Hyperthermia: No Meds Allergies/Adverse Reactions: Allergies Allergy/AdvReac Type Severity Reaction Status Date / Time No Known Allergies Allergy Verified 03/10/17 23:35 Physical Exam - Constitutional Appears: Non-toxic, No Acute Distress - Head Exam Head Exam: ATRAUMATIC, NORMOCEPHALIC - Eye Exam Eye Exam: EOMI - ENT Exam ENT Exam: Mucous Membranes Moist - Respiratory Exam Respiratory Exam: Rhonchi, Wheezes - Cardiovascular Exam Cardiovascular Exam: JVD, +S1, +S2 - GI/Abdominal Exam GI & Abdominal Exam: Normal Bowel Sounds, Soft. absent: Tenderness - Extremities Exam Extremities exam: Positive for: pedal edema (pitting edema b/l). Negative for: calf tenderness - Neurological Exam Neurological exam: Alert, Oriented x3 - Psychiatric Exam Psychiatric exam: Normal Affect - Skin Skin Exam: Dry, Warm Results - Vital Signs Recent Vital Signs: Last Vital Signs Temp 98.9 F 03/11/17 03:19 Pulse 118 H 03/11/17 03:19 Resp 20 03/11/17 03:19 BP 130/75 03/11/17 03:19 Pulse Ox 94 L 03/11/17 03:19 - Labs Result Diagrams: 03/11/17 01:04 03/11/17 01:04 Assessment & Plan - Assessment and Plan (Free Text) Assessment: CHF BNP 1080, no prior result to compare first troponin 0.0130, will continue to trend will start lasix IV 60mg daily, asa 81mg daily, losartan 100mg will check echo fluid restriction, check daily weights, Is & Os will try patient on BiPAP overnight cardiology consult, Dr. Correa, help appreciated Leg swelling likely secondary to CHF, but will check venous duplex to rule out dvt PVD with Hx leg stents continue cilostazol 100mg dialy continue plavix 75mg daily COPD continue duonebs prn continue advair 250/50 HTN continue equivalent for home valsartan: 100mg losartan daily HLD continue equivalent for home simvastatin 40mg Prophylactic measure pepcid 20mg Plan D/W Dr. Brothers <Александр Brothers - Last Filed: 03/11/17 06:30> Results - Vital Signs Recent Vital Signs: Last Vital Signs Temp 98 F 03/11/17 03:35 Pulse 116 H 03/11/17 04:06 Resp 21 03/11/17 04:06 BP 138/92 H 03/11/17 03:35 Pulse Ox 94 L 03/11/17 04:06 - Labs Result Diagrams: 03/11/17 01:04 03/11/17 01:04 Assessment & Plan - Date & Time Date: 03/11/17 (I have seen and examined the patient. I agree with the findings and plan of care as documented by Dr. Braswell. Patient with Acute CHF. ROMIx3 with EKG. Aspirin and Statin. 2D Echo. Cardio consult. Lasix IV. Daily weight and Strict I&Os. Also with history of PVD and COPD. Continue home meds. Monitor for acute changes.) Time: 06:28 Attending/Attestation - Attestation I have personally seen and examined this patient.: Yes I have fully participated in the care of the patient.: Yes I have reviewed all pertinent clinical information: Yes
[2017-03-11] MEDS ORDERED: Promethazine DM 6.25 mg-15 mg/5 ml Syrup PO PRN (03:32)
--- NOTE | 2017-03-11 08:50 | RAD ---
PROCEDURE: CHEST RADIOGRAPH, 1 VIEW HISTORY: SOB COMPARISON: 02/13/2017. FINDINGS: LUNGS: The lungs are clear. PLEURA: No pneumothorax or pleural fluid seen. CARDIOVASCULAR: The heart is normal in size. Atherosclerotic aortic arch calcifications are present. OSSEOUS STRUCTURES: No significant abnormalities. VISUALIZED UPPER ABDOMEN: Normal. OTHER FINDINGS: None. IMPRESSION: No active pulmonary disease.
[2017-03-11 08:59] LABS: T4 6.78 ug/dL (5.5-11.0)
[2017-03-11 09:13] LABS: THYROID STIMULATING HORMONE 0.82 mIU/L (0.46-4.68)
[2017-03-11] MEDS: Cilostazol 100 mg Tab UD PO SCH (10:57)
[2017-03-11] MEDS: Fluticasone-Salmeterol 250-50mcg Diskus INH SCH ×2 (13:11→21:28)
[2017-03-11] MEDS: diltiaZEM 120 mg/24 Hours CD Cap PO SCH (14:08)
--- NOTE | 2017-03-11 16:38 | RAD ---
PROCEDURE: Right Foot Radiographs. HISTORY: r/o trauma COMPARISON: None. FINDINGS: BONES: No fracture. First head osseous mild squaring with tiny medial-lateral spurs noted. Inferior and posterior calcaneal spurring -prominent Os peroneum Mild midfoot tarsal osseous hypertrophy JOINTS: Mild 1st metatarsal-phalangeal joint osteoarthrosis SOFT TISSUES: One plantar tissue swelling meta tarsal metatarsal phalangeal joint levels. OTHER FINDINGS: Fourth and 5th clinodactyly IMPRESSION: Soft tissue swelling. No fracture or dislocation appreciated Prominent calcaneal spurring
--- NOTE | 2017-03-11 20:46 | CP.PCM.PN ---
Subjective - Date & Time of Evaluation Date of Evaluation: 03/11/17 Time of Evaluation: 07:20 - Subjective Subjective: PGY-[address] Swenson Patient seen and examined at bedside. Patient reports chronic dry cough that is intermittently productive. Patient denies fevers, chills, headaches, dizziness, chest pain, SOB, abdominal pain, n/v/c/d, dysuria. Objective - Vital Signs/Intake and Output Vital Signs (last 24 hours): Temp Pulse Resp BP Pulse Ox 98.0 F 114 H 20 99/66 L 98 03/11/17 16:00 03/11/17 16:00 03/11/17 16:00 03/11/17 16:00 03/11/17 16:00 Intake and Output: 03/11/17 03/12/17 18:59 06:59 Intake Total 400 Balance 400 - Medications Medications: Current Medications Albuterol/Ipratropium (Duoneb 3 Mg/0.5 Mg (3 Ml) Ud) 3 ml INH RQ4 PRN PRN Reason: Shortness of Breath Aspirin (Aspirin Chewable) 81 mg PO DAILY [facility] Last Admin: 03/11/17 10:56 Dose: 81 mg Cilostazol (Pletal) 100 mg PO DAILY [facility] Last Admin: 03/11/17 10:57 Dose: 100 mg Clopidogrel Bisulfate (Plavix) 75 mg PO DAILY [facility] Last Admin: 03/11/17 10:56 Dose: 75 mg Clotrimazole (Lotrimin 1%) 1 gm TOP BID [facility] Diltiazem HCl (Cardizem Cd) 120 mg PO DAILY [facility] Last Admin: 03/11/17 14:08 Dose: 120 mg Furosemide (Lasix) 60 mg IVP DAILY [facility] Heparin Sodium (Porcine) (Heparin) 5,000 units SC Q8 [facility] Last Admin: 03/11/17 14:27 Dose: 5,000 units Losartan Potassium (Cozaar) 100 mg PO DAILY [facility] Last Admin: 03/11/17 10:56 Dose: 100 mg Pneumococcal Polyvalent Vaccine (Pneumovax 23 Vaccine) 0.5 ml IM .ONCE ONE Stop: 03/14/17 14:01 Promethazine HCl/Dextromethorphan (Phenergan Dm Syrup) 5 ml PO Q6H PRN PRN Reason: Cough Rosuvastatin Calcium (Crestor) 10 mg PO HS [facility] Fluticasone/Salmeterol (Advair Diskus 250/50) 1 puff INH RQ12 [facility] Last Admin: 03/11/17 13:11 Dose: Not Given - Labs Labs: PT 13.0 SECONDS (9.7-12.2) H 03/11/17 01:04 INR 1.2 03/11/17 01:04 APTT 29 SECONDS (21-34) 03/11/17 01:04 - Constitutional Appears: No Acute Distress - Head Exam Head Exam: ATRAUMATIC, NORMAL INSPECTION, NORMOCEPHALIC - Eye Exam Eye Exam: EOMI, PERRL - ENT Exam ENT Exam: Mucous Membranes Moist - Respiratory Exam Respiratory Exam: absent: Rales, Rhonchi, Wheezes Additional comments: Coarse breath sounds bilaterally - Cardiovascular Exam Cardiovascular Exam: Tachycardia, REGULAR RHYTHM, +S1, +S2 - GI/Abdominal Exam GI & Abdominal Exam: Soft, Normal Bowel Sounds. absent: Tenderness - Extremities Exam Extremities Exam: Pedal Edema (bilateral feet). absent: Tenderness Additional comments: fungal lesion right foot - Neurological Exam Neurological Exam: Alert, Awake, Oriented x3 - Skin Skin Exam: Dry, Intact, Warm Assessment and Plan - Assessment and Plan (Free Text) Plan: Congestive Heart Failure BNP 1080, no prior result to compare Troponin 0.013, .02, <.012. Downtrending. Lasix IV 60mg daily, asa 81mg daily, losartan 100mg F/u echo fluid restriction, check daily weights, Is & Os BiPAP cardiology consult, Dr. Correa, help appreciated Leg swelling F/u duplex Clotrimazole topical BID for fungus Right leg Xray: Soft tissue swelling and calcaneal spur Peripheral Vascular Disease with History of leg stents continue cilostazol 100mg dialy continue plavix 75mg daily Chronic Obstructive Pulmonary Disease Duoneb Q6 prn Advair 250/50 Q12 [facility] Hypertension continue equivalent for home valsartan: 100mg losartan daily Cardizem CD 120 mg PO daily Hyperlipidemia continue equivalent for home simvastatin 40mg: crestor 10 mg daily Prophylactic measure pepcid 20mg Heparin 5000 units SC Q[address] Messi Dubois PGY-1
[2017-03-11] MEDS: Clotrimazole 1% Cream(30 gm) TOP SCH (22:02)
--- NOTE | 2017-03-12 02:41 | CP.PCM.CON ---
History of Present Illness - History of Present Illness History of Present Illness: Consult requested for evaluation of CHF : SOB and LE edema HPI: 71-year-old female with past medical history significant for hypertension dyslipidemia COPD arthritis presented with complains of bilateral feet discomfort and swelling according to the patient she woke up on Wednesday morning and felt that her feet are swollen and uncomfortable. She described her right leg swelling worse than the left accompanied with discomfort and pain she has known chronic cough productive of clear sputum. At baseline she has 1-2 pillow orthopnea she can walk 5 blocks from her home to the [place] every Wednesday walks up 3 flights of stairs does have at baseline NYHA functional class I 2 dyspnea denies any chest pain palpitations diaphoresis weakness dizziness. Past medical history as stated above significant for hypertension COPD hyperlipidemia arthritis patient's home medications include valsartan/HCTZ cilostazol simvastatin and Plavix surgeries patient had stenting of the legs appendectomy abdominal hernia repair and partial thyroidectomy social history half pack per day smoker denies any alcohol or cigarette use lives with granddaughter when dependent of activities of daily living and uses walker. Review of Systems - Review of Systems All systems: reviewed and no additional remarkable complaints except - Constitutional Constitutional: As Per HPI, Fatigue, Malaise - EENT Eyes: As Per HPI Ears: As Per HPI Nose/Mouth/Throat: As Per HPI - Breasts Breasts: As Per HPI - Cardiovascular Cardiovascular: As Per HPI, Dyspnea, Leg Edema - Respiratory Respiratory: As Per HPI, Cough - Gastrointestinal Gastrointestinal: As Per HPI - Genitourinary Genitourinary: As Per HPI - Reproductive: Female Reproductive:Female: As Per HPI - Musculoskeletal Musculoskeletal: As Per HPI - Integumentary Integumentary: As Per HPI - Neurological Neurological: As Per HPI - Psychiatric Psychiatric: As Per HPI - Endocrine Endocrine: As Per HPI Past Patient History - Infectious Disease Hx of Infectious Diseases: None - Past Medical History & Family History Past Medical History?: Yes Pertinent Family History: +ve for HTN - Past Social History Smoking Status: Heavy Smoker > 10 Cigarettes Daily - CARDIAC Hx Hypercholesterolemia: Yes Hx Hypertension: Yes - PULMONARY Hx Chronic Obstructive Pulmonary Disease (COPD): Yes - NEUROLOGICAL Hx Neurological Disorder: No - HEENT Hx HEENT Problems: No - RENAL Hx Chronic Kidney Disease: No - ENDOCRINE/METABOLIC Hx Endocrine Disorders: No - HEMATOLOGICAL/ONCOLOGICAL Hx Blood Disorders: No - INTEGUMENTARY Hx Dermatological Problems: No - MUSCULOSKELETAL/RHEUMATOLOGICAL Hx Musculoskeletal Disorders: No Hx Falls: No - GASTROINTESTINAL Hx Gastrointestinal Disorders: No - GENITOURINARY/GYNECOLOGICAL Hx Genitourinary Disorders: No - PSYCHIATRIC Hx Psychophysiologic Disorder: No Hx Substance Use: No - SURGICAL HISTORY Hx Surgeries: Yes Hx Herniorrhaphy: Yes Hx Thyroidectomy: Yes Other/Comment: 4 stents placed for blood clots in legs. - ANESTHESIA Hx Anesthesia: Yes Hx Anesthesia Reactions: No Hx Malignant Hyperthermia: No Meds Allergies/Adverse Reactions: Allergies Allergy/AdvReac Type Severity Reaction Status Date / Time No Known Allergies Allergy Verified 03/10/17 23:35 - Medications Medications: Current Medications Albuterol/Ipratropium (Duoneb 3 Mg/0.5 Mg (3 Ml) Ud) 3 ml INH RQ4 PRN PRN Reason: Shortness of Breath Aspirin (Aspirin Chewable) 81 mg PO DAILY [facility] Last Admin: 03/11/17 10:56 Dose: 81 mg Cilostazol (Pletal) 100 mg PO DAILY [facility] Last Admin: 03/11/17 10:57 Dose: 100 mg Clopidogrel Bisulfate (Plavix) 75 mg PO DAILY [facility] Last Admin: 03/11/17 10:56 Dose: 75 mg Clotrimazole (Lotrimin 1%) 1 gm TOP BID [facility] Last Admin: 03/11/17 22:02 Dose: 1 applic Diltiazem HCl (Cardizem Cd) 120 mg PO DAILY [facility] Last Admin: 03/11/17 14:08 Dose: 120 mg Furosemide (Lasix) 60 mg IVP DAILY [facility] Heparin Sodium (Porcine) (Heparin) 5,000 units SC Q8 [facility] Last Admin: 03/11/17 22:02 Dose: 5,000 units Losartan Potassium (Cozaar) 100 mg PO DAILY [facility] Last Admin: 03/11/17 10:56 Dose: 100 mg Pneumococcal Polyvalent Vaccine (Pneumovax 23 Vaccine) 0.5 ml IM .ONCE ONE Stop: 03/14/17 14:01 Promethazine HCl/Dextromethorphan (Phenergan Dm Syrup) 5 ml PO Q6H PRN PRN Reason: Cough Rosuvastatin Calcium (Crestor) 10 mg PO HS [facility] Last Admin: 03/11/17 22:03 Dose: 10 mg Fluticasone/Salmeterol (Advair Diskus 250/50) 1 puff INH RQ12 [facility] Last Admin: 03/11/17 21:28 Dose: Not Given Physical Exam - Constitutional Appears: Well - Head Exam Head Exam: ATRAUMATIC, NORMAL INSPECTION, NORMOCEPHALIC - Eye Exam Eye Exam: EOMI, Normal appearance, PERRL Pupil Exam: NORMAL ACCOMODATION, PERRL - ENT Exam ENT Exam: Mucous Membranes Moist, Normal Exam - Neck Exam Neck exam: Positive for: Normal Inspection - Respiratory Exam Respiratory Exam: Clear to Auscultation Bilateral, NORMAL BREATHING PATTERN - Cardiovascular Exam Cardiovascular Exam: REGULAR RHYTHM, +S1, +S2, Systolic Murmur - GI/Abdominal Exam GI & Abdominal Exam: Normal Bowel Sounds, Soft. absent: Tenderness - Extremities Exam Extremities exam: Positive for: normal inspection - Neurological Exam Neurological exam: Alert, CN II-XII Intact, Normal Gait, Oriented x3, Reflexes Normal - Psychiatric Exam Psychiatric exam: Normal Affect, Normal Mood - Skin Skin Exam: Dry, Intact, Normal Color, Warm Results - Vital Signs Recent Vital Signs: Last Vital Signs Temp 97.7 F 03/11/17 23:35 Pulse 91 H 03/11/17 23:35 Resp 20 03/11/17 23:35 BP 107/65 03/11/17 23:35 Pulse Ox 96 03/11/17 23:35 - Labs Result Diagrams: 03/11/17 01:04 03/11/17 01:04 Labs: Laboratory Results - last 24 hr 03/11/17 03/11/17 08:03 13:58 Total Creatine Kinase 22 L 27 L CK-MB (Mass) 0.67 0.90 Troponin I, Quant 0.0200 < 0.0120 Triglycerides 45 Cholesterol 119 LDL Cholesterol Direct 50 HDL Cholesterol 45 Thyroxine (T4) 6.78 TSH 3rd Generation 0.82 Assessment & Plan (1) Leg edema Assessment and Plan: etiology 2' to RAAS activation responded to lasix therapy Status: Acute (2) CHF (congestive heart failure) Assessment and Plan: Echo reviewed - HFpEF etiology ? ischemic heart disease cont ASA, statins dc CCB and add BB cont arb will need ischemic evaluation Status: Acute (3) HTN (hypertension) Assessment and Plan: dc ccb and add bb cont arb lasix Status: Acute (4) COPD with exacerbation Status: Acute (5) PVD (peripheral vascular disease) Assessment and Plan: cont dapt asymptomatic Status: Acute
[2017-03-12 07:21] LABS: BASO % 0.1 % (0.0-2.0); HEMATOCRIT 28.5 % (34.0-47.0); LYMPH # 0.8 K/uL (1.0-4.3); LYMPH % 5.9 % (20.0-40.0); MEAN CELL VOLUME 82.6 fL (81.0-99.0); MEAN CORPUSCULAR HEMOGLOBIN 28.8 pg (27.0-31.0); MEAN CORPUSCULAR HGB CONC 34.9 g/dL (33.0-37.0); MEAN PLATELET VOLUME 7.1 fL (7.2-11.7); MONO # 1.1 K/uL (0.0-0.8); MONO % 7.7 % (0.0-10.0); PLATELET COUNT 307 K/uL (130-400); RED CELL DISTRIBUTION WIDTH 14.4 % (11.5-14.5)
[2017-03-12 07:24] LABS: POTASSIUM 3.5 mmol/L (3.6-5.2); WHITE BLOOD COUNT 14.4 K/uL (4.8-10.8)
[2017-03-12 07:26] LABS: BILIRUBIN,TOTAL 0.5 mg/dL (0.2-1.3); TOTAL PROTEIN 5.9 g/dL (6.3-8.3)
[2017-03-12 07:27] LABS: CALCIUM 8.6 mg/dl (8.6-10.4)
[2017-03-12] MEDS ORDERED: Aminophylline 25 mg/ml Inj ONE (08:36)
[2017-03-12 08:49] LABS: NEUTROPHIL 89 % (50-75); TOTAL CELLS COUNTED 100
[2017-03-12] MEDS: Fluticasone-Salmeterol 250-50mcg Diskus INH SCH ×2 (10:14→19:32)
[2017-03-12] MEDS: diltiaZEM 120 mg/24 Hours CD Cap PO SCH (12:48)
[2017-03-12] MEDS: Cilostazol 100 mg Tab UD PO SCH (12:52)
[2017-03-12] MEDS: Clotrimazole 1% Cream(30 gm) TOP SCH ×2 (14:32→21:21)
[2017-03-12 14:35] LABS: RBC URINE 4 /hpf (0-3); URINE BACTERIA RARE (<OCC); URINE BILIRUBIN NEGATIVE (NEGATIVE); URINE BLOOD NEGATIVE (NEGATIVE); URINE COLOR Yellow (YELLOW); URINE GLUCOSE (UA) NORMAL (Normal); URINE KETONE NEGATIVE (NEGATIVE); URINE LEUKOCYTE ESTERASE TRACE Leu/uL (Negative); URINE PROTEIN NEGATIVE (NEGATIVE); WBC URINE 6 /hpf (0-5)
[2017-03-12 17:17] VITALS: RESP 20
--- NOTE | 2017-03-12 18:22 | CP.PCM.PN ---
Subjective - Date & Time of Evaluation Date of Evaluation: 03/12/17 Time of Evaluation: 09:30 - Subjective Subjective: s/p stress test in am feeling fine has chronic smokers cough Objective - Vital Signs/Intake and Output Vital Signs (last 24 hours): Temp Pulse Resp BP Pulse Ox 98.3 F 91 H 20 100/64 94 L 03/12/17 16:00 03/12/17 16:00 03/12/17 16:00 03/12/17 16:00 03/12/17 16:00 Intake and Output: 03/12/17 03/12/17 06:59 18:59 Intake Total 240 250 Balance 240 250 - Medications Medications: Current Medications Albuterol/Ipratropium (Duoneb 3 Mg/0.5 Mg (3 Ml) Ud) 3 ml INH RQ4 PRN PRN Reason: Shortness of Breath Aspirin (Aspirin Chewable) 81 mg PO DAILY [facility] Last Admin: 03/12/17 12:51 Dose: 81 mg Cilostazol (Pletal) 100 mg PO DAILY [facility] Last Admin: 03/12/17 12:52 Dose: 100 mg Clopidogrel Bisulfate (Plavix) 75 mg PO DAILY [facility] Last Admin: 03/12/17 12:51 Dose: 75 mg Clotrimazole (Lotrimin 1%) 1 gm TOP BID [facility] Last Admin: 03/12/17 14:32 Dose: 1 applic Diltiazem HCl (Cardizem Cd) 120 mg PO DAILY [facility] Last Admin: 03/12/17 12:48 Dose: 120 mg Furosemide (Lasix) 60 mg IVP DAILY [facility] Last Admin: 03/12/17 13:07 Dose: Not Given Heparin Sodium (Porcine) (Heparin) 5,000 units SC Q8 [facility] Last Admin: 03/12/17 13:17 Dose: 5,000 units Losartan Potassium (Cozaar) 100 mg PO DAILY [facility] Last Admin: 03/12/17 12:51 Dose: 100 mg Pneumococcal Polyvalent Vaccine (Pneumovax 23 Vaccine) 0.5 ml IM .ONCE ONE Stop: 03/14/17 14:01 Promethazine HCl/Dextromethorphan (Phenergan Dm Syrup) 5 ml PO Q6H PRN PRN Reason: Cough Rosuvastatin Calcium (Crestor) 10 mg PO HS [facility] Last Admin: 03/11/17 22:03 Dose: 10 mg Fluticasone/Salmeterol (Advair Diskus 250/50) 1 puff INH RQ12 [facility] Last Admin: 03/12/17 10:14 Dose: Not Given - Labs Labs: 03/12/17 06:57 03/12/17 06:57 PT 13.0 SECONDS (9.7-12.2) H 03/11/17 01:04 INR 1.2 03/11/17 01:04 APTT 29 SECONDS (21-34) 03/11/17 01:04 - Constitutional Appears: Well - Head Exam Head Exam: ATRAUMATIC, NORMAL INSPECTION, NORMOCEPHALIC - Eye Exam Eye Exam: EOMI, Normal appearance, PERRL Pupil Exam: NORMAL ACCOMODATION, PERRL - ENT Exam ENT Exam: Mucous Membranes Moist, Normal Exam - Neck Exam Neck Exam: Full ROM, Normal Inspection. absent: Lymphadenopathy - Respiratory Exam Respiratory Exam: Clear to Ausculation Bilateral, NORMAL BREATHING PATTERN - Cardiovascular Exam Cardiovascular Exam: REGULAR RHYTHM, +S1, +S2, Murmur - GI/Abdominal Exam GI & Abdominal Exam: Soft, Normal Bowel Sounds. absent: Tenderness - Exam Bimanual exam: NORMAL BIMANUAL EXAM - Extremities Exam Extremities Exam: Full ROM, Normal Capillary Refill, Normal Inspection. absent : Joint Swelling, Pedal Edema - Back Exam Back Exam: NORMAL INSPECTION - Neurological Exam Neurological Exam: Alert, Awake, CN II-XII Intact, Normal Gait, Oriented x3 - Psychiatric Exam Psychiatric exam: Normal Affect, Normal Mood - Skin Skin Exam: Dry, Intact, Normal Color, Warm Assessment and Plan (1) Leg edema Assessment & Plan: 2' to RAAS activation from diastolic CHF EF normal on echo with grade I diastolic dysfunction responded to lasix Status: Acute (2) CHF (congestive heart failure) Assessment & Plan: diastolic nuclear stress test - pending processing of images cont with arb dc ccb and switch to BB Status: Acute (3) HTN (hypertension) Assessment & Plan: dc ccb and switch to bb cont with arb Status: Acute (4) COPD with exacerbation Status: Acute (5) PVD (peripheral vascular disease) Assessment & Plan: dapt Status: Acute
--- NOTE | 2017-03-12 19:43 | CP.PCM.PN ---
Subjective - Date & Time of Evaluation Date of Evaluation: 03/12/17 Time of Evaluation: 19:41 - Subjective Subjective: PGY-[address] Swenson HPI: Patient seen and examined at bedside. Complaining of a cough but states that she always coughs as she is a daily smoker and has been for years. She states that she feels fine and is ready to go home. I informed her that once the stress test results come back i would be able to let her go given a the test did not require further cardiac workup. No other complaints at this time. Objective - Vital Signs/Intake and Output Vital Signs (last 24 hours): Temp Pulse Resp BP Pulse Ox 98.3 F 91 H 20 100/64 94 L 03/12/17 16:00 03/12/17 16:00 03/12/17 16:00 03/12/17 16:00 03/12/17 16:00 Intake and Output: 03/12/17 03/13/17 18:59 06:59 Intake Total 250 Balance 250 - Medications Medications: Current Medications Albuterol/Ipratropium (Duoneb 3 Mg/0.5 Mg (3 Ml) Ud) 3 ml INH RQ4 PRN PRN Reason: Shortness of Breath Aspirin (Aspirin Chewable) 81 mg PO DAILY [facility] Last Admin: 03/12/17 12:51 Dose: 81 mg Cilostazol (Pletal) 100 mg PO DAILY [facility] Last Admin: 03/12/17 12:52 Dose: 100 mg Clopidogrel Bisulfate (Plavix) 75 mg PO DAILY [facility] Last Admin: 03/12/17 12:51 Dose: 75 mg Clotrimazole (Lotrimin 1%) 1 gm TOP BID [facility] Last Admin: 03/12/17 14:32 Dose: 1 applic Diltiazem HCl (Cardizem Cd) 120 mg PO DAILY [facility] Last Admin: 03/12/17 12:48 Dose: 120 mg Furosemide (Lasix) 60 mg IVP DAILY [facility] Last Admin: 03/12/17 13:07 Dose: Not Given Heparin Sodium (Porcine) (Heparin) 5,000 units SC Q8 [facility] Last Admin: 03/12/17 13:17 Dose: 5,000 units Losartan Potassium (Cozaar) 100 mg PO DAILY [facility] Last Admin: 03/12/17 12:51 Dose: 100 mg Pneumococcal Polyvalent Vaccine (Pneumovax 23 Vaccine) 0.5 ml IM .ONCE ONE Stop: 03/14/17 14:01 Promethazine HCl/Dextromethorphan (Phenergan Dm Syrup) 5 ml PO Q6H PRN PRN Reason: Cough Rosuvastatin Calcium (Crestor) 10 mg PO HS [facility] Last Admin: 03/11/17 22:03 Dose: 10 mg Fluticasone/Salmeterol (Advair Diskus 250/50) 1 puff INH RQ12 [facility] Last Admin: 03/12/17 19:32 Dose: 1 puff - Labs Labs: 03/12/17 06:57 03/12/17 06:57 PT 13.0 SECONDS (9.7-12.2) H 03/11/17 01:04 INR 1.2 03/11/17 01:04 APTT 29 SECONDS (21-34) 03/11/17 01:04 - Constitutional Appears: Well, Non-toxic, No Acute Distress - Eye Exam Eye Exam: EOMI - ENT Exam ENT Exam: Mucous Membranes Moist - Respiratory Exam Respiratory Exam: Clear to Ausculation Bilateral, Wheezes, NORMAL BREATHING PATTERN - Cardiovascular Exam Cardiovascular Exam: REGULAR RHYTHM - GI/Abdominal Exam GI & Abdominal Exam: Distended, Soft, Normal Bowel Sounds. absent: Tenderness - Neurological Exam Neurological Exam: Alert, Awake, Oriented x3 - Psychiatric Exam Psychiatric exam: Normal Affect, Normal Mood - Skin Skin Exam: Dry, Intact, Normal Color, Warm Assessment and Plan - Assessment and Plan (Free Text) Assessment: Congestive Heart Failure BNP 1080, no prior result to compare Troponin 0.013, .02, <.012. Downtrending. Lasix IV 60mg daily, asa 81mg daily, losartan 100mg F/u echo fluid restriction, check daily weights, Is & Os BiPAP cardiology ([facility]) help appreciated Leg swelling F/u duplex Clotrimazole topical BID for fungus Right leg Xray: Soft tissue swelling and calcaneal spur Peripheral Vascular Disease with History of leg stents continue cilostazol 100mg dialy continue plavix 75mg daily Chronic Obstructive Pulmonary Disease Duoneb Q6 prn Advair 250/50 Q12 [facility] Hypertension continue equivalent for home valsartan: 100mg losartan daily Cardizem CD 120 mg PO daily Hyperlipidemia continue equivalent for home simvastatin 40mg: crestor 10 mg daily Prophylactic measure pepcid 20mg Heparin 5000 units SC Q8
[2017-03-13 06:37] LABS: BASO % 0.2 % (0.0-2.0); EOS # 0.1 K/uL (0.0-0.7); EOS % 0.9 % (0.0-4.0); HEMATOCRIT 30.3 % (34.0-47.0); LYMPH # 2.2 K/uL (1.0-4.3); LYMPH % 19.4 % (20.0-40.0); MEAN CELL VOLUME 83.3 fL (81.0-99.0); MEAN CORPUSCULAR HEMOGLOBIN 28.9 pg (27.0-31.0); MEAN CORPUSCULAR HGB CONC 34.7 g/dL (33.0-37.0); MEAN PLATELET VOLUME 6.7 fL (7.2-11.7); MONO % 8.7 % (0.0-10.0); RED CELL DISTRIBUTION WIDTH 14.7 % (11.5-14.5); WHITE BLOOD COUNT 11.4 K/uL (4.8-10.8)
[2017-03-13 06:47] LABS: POTASSIUM 3.5 mmol/L (3.6-5.2)
[2017-03-13 06:49] LABS: BILIRUBIN,TOTAL 0.5 mg/dL (0.2-1.3); TOTAL PROTEIN 6.5 g/dL (6.3-8.3)
[2017-03-13 06:50] LABS: CALCIUM 8.6 mg/dl (8.6-10.4)
[2017-03-13] MEDS: Fluticasone-Salmeterol 250-50mcg Diskus INH SCH (08:17)
--- NOTE | 2017-03-13 08:46 | CP.PCM.PN ---
Subjective - Date & Time of Evaluation Date of Evaluation: 03/13/17 Time of Evaluation: 08:30 - Subjective Subjective: Patient was seen and examined by me. Patient reports no acute events overnight. No events overnight reported. She just had a stress test done. The results of which are still pending at the moment. Objective - Vital Signs/Intake and Output Vital Signs (last 24 hours): Temp Pulse Resp BP Pulse Ox 97.3 F L 81 20 117/68 93 L 03/13/17 07:07 03/13/17 07:50 03/13/17 07:07 03/13/17 07:07 03/13/17 07:07 Intake and Output: 03/13/17 03/13/17 06:59 18:59 Intake Total 240 Balance 240 - Medications Medications: Current Medications Albuterol/Ipratropium (Duoneb 3 Mg/0.5 Mg (3 Ml) Ud) 3 ml INH RQ4 PRN PRN Reason: Shortness of Breath Aspirin (Aspirin Chewable) 81 mg PO DAILY [facility] Last Admin: 03/12/17 12:51 Dose: 81 mg Cilostazol (Pletal) 100 mg PO DAILY [facility] Last Admin: 03/12/17 12:52 Dose: 100 mg Clopidogrel Bisulfate (Plavix) 75 mg PO DAILY [facility] Last Admin: 03/12/17 12:51 Dose: 75 mg Clotrimazole (Lotrimin 1%) 1 gm TOP BID [facility] Last Admin: 03/12/17 21:21 Dose: 1 applic Diltiazem HCl (Cardizem Cd) 120 mg PO DAILY [facility] Last Admin: 03/12/17 12:48 Dose: 120 mg Furosemide (Lasix) 60 mg IVP DAILY [facility] Last Admin: 03/12/17 13:07 Dose: Not Given Heparin Sodium (Porcine) (Heparin) 5,000 units SC Q8 [facility] Last Admin: 03/13/17 05:07 Dose: 5,000 units Losartan Potassium (Cozaar) 100 mg PO DAILY [facility] Last Admin: 03/12/17 12:51 Dose: 100 mg Pneumococcal Polyvalent Vaccine (Pneumovax 23 Vaccine) 0.5 ml IM .ONCE ONE Stop: 03/14/17 14:01 Promethazine HCl/Dextromethorphan (Phenergan Dm Syrup) 5 ml PO Q6H PRN PRN Reason: Cough Rosuvastatin Calcium (Crestor) 10 mg PO HS [facility] Last Admin: 03/12/17 21:20 Dose: 10 mg Fluticasone/Salmeterol (Advair Diskus 250/50) 1 puff INH RQ12 [facility] Last Admin: 03/13/17 08:17 Dose: 1 puff - Labs Labs: 03/13/17 06:30 03/13/17 06:30 PT 13.0 SECONDS (9.7-12.2) H 03/11/17 01:04 INR 1.2 03/11/17 01:04 APTT 29 SECONDS (21-34) 03/11/17 01:04 - Constitutional Appears: Well, No Acute Distress - Head Exam Head Exam: NORMAL INSPECTION - Eye Exam Eye Exam: EOMI, Normal appearance - ENT Exam ENT Exam: Mucous Membranes Moist - Respiratory Exam Respiratory Exam: Clear to Ausculation Bilateral, NORMAL BREATHING PATTERN - Cardiovascular Exam Cardiovascular Exam: REGULAR RHYTHM - GI/Abdominal Exam GI & Abdominal Exam: Soft, Normal Bowel Sounds - Extremities Exam Extremities Exam: Full ROM. absent: Pedal Edema - Neurological Exam Neurological Exam: Alert, Awake, Oriented x3 Neuro motor strength exam: Left Upper Extremity: 5, Right Upper Extremity: 5, Left Lower Extremity: 5, Right Lower Extremity: 5 - Psychiatric Exam Psychiatric exam: Normal Affect, Normal Mood - Skin Skin Exam: Normal Color, Warm Assessment and Plan - Assessment and Plan (Free Text) Assessment: Congestive Heart Failure 03/13: Doing ok today. She denied shortness of breath, will recheck CXRAY today. Continue with ARB and Lasix. Not currently on BB so will add Coreg 3.125 PO BID. The Echo is done, no official read as of yet. Also pending stress test results. BNP 1080, no prior result to compare Troponin 0.013, .02, <.012. Downtrending. Lasix IV 60mg daily, asa 81mg daily, losartan 100mg fluid restriction, check daily weights, Is & Os BiPAP cardiology ([facility]) help appreciated Hypertension 03/13: Systolic BPs have been stable. Adding Coreg 3.125 BID continue equivalent for home valsartan: 100mg losartan daily Cardizem CD 120 mg PO daily Chronic Obstructive Pulmonary Disease 03/13: Currently stable. Continue with Advair as well as Duonebulizer PRN Duoneb Q6 prn Advair 250/50 Q12 [facility] Leg swelling F/u duplex Clotrimazole topical BID for fungus Right leg Xray: Soft tissue swelling and calcaneal spur Peripheral Vascular Disease with History of leg stents continue cilostazol 100mg dialy continue plavix 75mg daily Hyperlipidemia Continue equivalent for home simvastatin 40mg: crestor 10 mg daily Prophylactic measure pepcid 20mg Heparin 5000 units SC Q8
[2017-03-13] MEDS ORDERED: Potassium Chloride 20 mEq/15 ml LIQ UD PO ONE (08:58)
[2017-03-13] MEDS: Cilostazol 100 mg Tab UD PO SCH (09:55)
[2017-03-13] MEDS: Clotrimazole 1% Cream(30 gm) TOP SCH (09:55)
[2017-03-13] MEDS: diltiaZEM 120 mg/24 Hours CD Cap PO SCH (09:55)
--- NOTE | 2017-03-13 10:28 | RAD ---
HISTORY: CHF follow up COMPARISON: Chest x-ray performed 03/11/17 TECHNIQUE: Chest, one view. FINDINGS: LUNGS: Mild pulmonary venous congestion. Mild left basilar atelectasis and/or small pleural effusion. No definite pneumothorax. CARDIOVASCULAR: Mild cardiomegaly. Dense atherosclerotic calcifications of the aortic knob. OSSEOUS STRUCTURES: Degenerative changes. Chronic appearing right 9th rib fracture deformity. The VISUALIZED UPPER ABDOMEN: Unremarkable. OTHER FINDINGS: None. IMPRESSION: Mild left basilar atelectasis and/or small pleural effusion. Mild pulmonary venous congestion. Additional findings as above.
--- NOTE | 2017-03-13 12:26 | CP.PCM.PN ---
Subjective - Date & Time of Evaluation Date of Evaluation: 03/13/17 Time of Evaluation: 12:25 - Subjective Subjective: Feeling fine, no complaints stress test - no evidence of ischemia dc ccb Objective - Vital Signs/Intake and Output Vital Signs (last 24 hours): Temp Pulse Resp BP Pulse Ox 97.3 F L 81 20 117/70 93 L 03/13/17 07:07 03/13/17 07:50 03/13/17 07:07 03/13/17 09:56 03/13/17 07:07 Intake and Output: 03/13/17 03/13/17 06:59 18:59 Intake Total 240 Balance 240 - Medications Medications: Current Medications Albuterol/Ipratropium (Duoneb 3 Mg/0.5 Mg (3 Ml) Ud) 3 ml INH RQ4 PRN PRN Reason: Shortness of Breath Aspirin (Aspirin Chewable) 81 mg PO DAILY [facility] Last Admin: 03/13/17 09:55 Dose: 81 mg Carvedilol (Coreg) 3.125 mg PO BID [facility] Last Admin: 03/13/17 10:34 Dose: 3.125 mg Cilostazol (Pletal) 100 mg PO DAILY [facility] Last Admin: 03/13/17 09:55 Dose: 100 mg Clopidogrel Bisulfate (Plavix) 75 mg PO DAILY [facility] Last Admin: 03/13/17 09:55 Dose: 75 mg Clotrimazole (Lotrimin 1%) 1 gm TOP BID [facility] Last Admin: 03/13/17 09:55 Dose: 1 applic Diltiazem HCl (Cardizem Cd) 120 mg PO DAILY [facility] Last Admin: 03/13/17 09:55 Dose: 120 mg Furosemide (Lasix) 60 mg IVP DAILY [facility] Last Admin: 03/13/17 09:56 Dose: 60 mg Heparin Sodium (Porcine) (Heparin) 5,000 units SC Q8 [facility] Last Admin: 03/13/17 05:07 Dose: 5,000 units Losartan Potassium (Cozaar) 100 mg PO DAILY [facility] Last Admin: 03/13/17 09:55 Dose: 100 mg Pneumococcal Polyvalent Vaccine (Pneumovax 23 Vaccine) 0.5 ml IM .ONCE ONE Stop: 03/14/17 14:01 Promethazine HCl/Dextromethorphan (Phenergan Dm Syrup) 5 ml PO Q6H PRN PRN Reason: Cough Rosuvastatin Calcium (Crestor) 10 mg PO HS [facility] Last Admin: 03/12/17 21:20 Dose: 10 mg Fluticasone/Salmeterol (Advair Diskus 250/50) 1 puff INH RQ12 [facility] Last Admin: 03/13/17 08:17 Dose: 1 puff - Labs Labs: 03/13/17 06:30 03/13/17 06:30 PT 13.0 SECONDS (9.7-12.2) H 03/11/17 01:04 INR 1.2 03/11/17 01:04 APTT 29 SECONDS (21-34) 03/11/17 01:04 - Constitutional Appears: Well - Head Exam Head Exam: ATRAUMATIC, NORMAL INSPECTION, NORMOCEPHALIC - Eye Exam Eye Exam: EOMI, Normal appearance, PERRL Pupil Exam: NORMAL ACCOMODATION, PERRL - ENT Exam ENT Exam: Mucous Membranes Moist, Normal Exam - Neck Exam Neck Exam: Full ROM, Normal Inspection. absent: Lymphadenopathy - Respiratory Exam Respiratory Exam: Clear to Ausculation Bilateral, NORMAL BREATHING PATTERN - Cardiovascular Exam Cardiovascular Exam: REGULAR RHYTHM, +S1, +S2, Murmur - GI/Abdominal Exam GI & Abdominal Exam: Soft, Normal Bowel Sounds. absent: Tenderness - Extremities Exam Extremities Exam: Full ROM, Normal Capillary Refill, Normal Inspection. absent : Joint Swelling, Pedal Edema - Neurological Exam Neurological Exam: Alert, Awake, CN II-XII Intact, Normal Gait, Oriented x3 - Psychiatric Exam Psychiatric exam: Normal Affect, Normal Mood - Skin Skin Exam: Dry, Intact, Normal Color, Warm Assessment and Plan (1) Leg edema Assessment & Plan: resolved change lasix to 40mg po daily Status: Acute (2) CHF (congestive heart failure) Assessment & Plan: diastolic dc CCB and add coreg cont with losartan lasix 40mg po daily Status: Acute (3) HTN (hypertension) Assessment & Plan: cont coreg and losartan lasix 40mg po daily add aldactone 25mg po daily Status: Acute (4) COPD with exacerbation Status: Acute (5) PVD (peripheral vascular disease) Assessment & Plan: stable cont with DAPT on cilostazol Status: Acute
--- NOTE | 2017-03-13 12:29 | CARD ---
APPROVED REPORT Protocol: PHARMACOLOGICAL STRESS Test Type: LEXISCAN Test Indications: DYSPNEA Medications: LIST SCAN Medical History: DYSPNEA LEG EDEMA, CHF,COPD EXACERBATION Target HR: 147 bpm Resting ECG: normal Resting Heart Rate: 95 bpm Resting Blood Pressure: 120/60mmHg submaximum (85%): 125 bpm TEST SUMMARY [id number]:070.00..[id number]/60.1. INFUSIONDOSE 100:300.00.01.072/.2. [id number]:[id number]/60.1. PROCEDURE Pharmacologic stress testing was performed using 0.4mg per 5ml of regadenoson given intravenously over 7-10 seconds. POST EXERCISE Reason for Termination: Protocol Completed Target HR: No Max HR: 72 bpm 75% of Maximum Predicted HR: 147 bpm Exercise duration: 00:30 min:sec, 0 Stage Exercise capacity: 1.0METs Max Blood Pressure: 130/60mmHg Blood Pressure response to exercise: NOT ASSESED Heart Rate response to exercise: NOT ASSESSED Chest Pain: No, none Angina index: 0 Arrhythmia: No, none ST Change: No, none Deviation: 0 mm EXAM: Myocardial Perfusion STRESS/REST Imaging Protocol The imaging protocol used to acquire images was Stress Tc-99m/rest Tc-99m 1 day Stress Spect myocardial perfusion imaging was performed in supine position 45 minutes following the injection of 12.9 mCi of Tc-99 Myoview. Gated Rest Spect was performed 55 minutes after intravenous 32.3 mCi Tc-99 Myoview injection. The images were gated to evaluate regional wall motion and calculate ventricular ejection fraction.Images were reconstructed using backfilter projection method in short horizontal and verticle long axis. Spect slices were generated. RESTING DATA UHV887.79ddIM8.30L/min1/3 Pk. Filling Rate1.18EDV/sec LV Time to Pk. Filling Khak147.59msec ESV43.00mlMyocardial Ahur754.00gLV Time to Pk. Ejection Jnnp158.23msec Pk. Fill Rate2.70EDV/secAv. Heart Rate76.00bpm EF57.00%Pk. Emptying Rate3.31ESV/sec STRESS DATA EDV89.67mlBZ6.50L/min ESV30.00mlMyocardial Vxew298.00g Pk. Fill Rate4.01EDV/sec EF66.00%Pk. Emptying Rate4.79ESV/sec 1/3 Pk. Filling Rate0.89EDV/secRegional WT score at stress:0.00 LV Time to Pk. Filling Rate:188.21msecRegional WM score at stress:0.00 LV Time to Pk. Ejection Rate:157.39msecSummed WT score at stress:2.00 Av. Heart Rate93.00bpmSummed WM score at stress:1.00 Study quality was poor. Left Ventricular size was Normal at Rest and Stress. LV Perfusion 1 Perfusion Defect Location: basal inferoseptal Perfusion Defect Size: Small (1-2 segments) Perfusion Defect Severity: Moderate Type of Perfusion Defect: Fixed TCD/TID: 1.0No LV Perf. Quant 17 Seg. SSS2.00 17 Seg. SRS5.00 17 Seg. SDS0.00 Stress Defect Extent (% LAD)2.50Rest Defect Extent (% LAD)0.00Rev. Defect Extent (% LAD)0.60 Stress Defect Extent (% LCX)1.30Rest Defect Extent (% LCX)6.30Rev. Defect Extent (% LCX)0.00 Stress Defect Extent (% RCA)4.40Rest Defect Extent (% RCA)5.60Rev. Defect Extent (% RCA)0.00 Stress Defect Extent (% CHARLETTE)5.70Rest Defect Extent (% CHARLETTE)6.50Rev. Defect Extent (% CHARLETTE)1.30 Other Information Quality:Poor Overall Exercise Capacity: not assessed Left Ventricle LV Size/Shape: The left ventricle is normal size. LV Thickness: There is mildconcentric left ventricular hypertrophy. LV Function:The Ejection Fraction is 55-60%. Metabolism/Perfusion Reversible/Irreversible: There is a small irreversible perfusion/metabolism defect in the Basal inferoseptal wall. Conclusion 1. The Ejection Fraction is 55-60%. 2. There is mildconcentric left ventricular hypertrophy. 3. Fixed basal inferoseptal and inferior defect secondary to bowel loop attenuation 4. No evidence of pharmacologically induced ischemia
[2017-03-13 16:27] VITALS: BP 99/57; TEMP 98; O2SAT 99
[2017-03-13 17:02] VITALS: PULSE 83
--- NOTE | 2017-03-13 18:31 | CP.PCM.DIS ---
<Ryan Ayoub - Last Filed: 03/13/17 19:23> Provider - Provider Date of Admission: 03/11/17 02:32 Attending physician: Александр Brothers MD Primary care physician: Meek Consults: Sunny Time Spent in preparation of Discharge (in minutes): 60 Hospital Course - Lab Results Lab Results: Most Recent Lab Values WBC 11.4 K/uL (4.8-10.8) H 03/13/17 06:30 RBC 3.63 Mil/uL (3.80-5.20) L 03/13/17 06:30 Hgb 10.5 g/dL (11.0-16.0) L 03/13/17 06:30 Hct 30.3 % (34.0-47.0) L 03/13/17 06:30 MCV 83.3 fL (81.0-99.0) 03/13/17 06:30 MCH 28.9 pg (27.0-31.0) 03/13/17 06:30 MCHC 34.7 g/dL (33.0-37.0) 03/13/17 06:30 RDW 14.7 % (11.5-14.5) H 03/13/17 06:30 Plt Count 360 K/uL (130-400) 03/13/17 06:30 MPV 6.7 fL (7.2-11.7) L 03/13/17 06:30 Neut % (Auto) 70.8 % (50.0-75.0) 03/13/17 06:30 Lymph % (Auto) 19.4 % (20.0-40.0) L 03/13/17 06:30 Carbon % (Auto) 8.7 % (0.0-10.0) 03/13/17 06:30 Eos % (Auto) 0.9 % (0.0-4.0) 03/13/17 06:30 Baso % (Auto) 0.2 % (0.0-2.0) 03/13/17 06:30 Neut # 8.0 K/uL (1.8-7.0) H 03/13/17 06:30 Lymph # 2.2 K/uL (1.0-4.3) 03/13/17 06:30 Carbon # 1.0 K/uL (0.0-0.8) H 03/13/17 06:30 Eos # 0.1 K/uL (0.0-0.7) 03/13/17 06:30 Baso # 0.0 K/uL (0.0-0.2) 03/13/17 06:30 Neutrophils % (Manual) 89 % (50-75) H 03/12/17 06:57 Lymphocytes % (Manual) 5 % (20-40) L 03/12/17 06:57 Monocytes % (Manual) 6 % (0-10) 03/12/17 06:57 Platelet Estimate Normal (NORMAL) 03/12/17 06:57 Hypochromasia (manual) Slight 03/12/17 06:57 Poikilocytosis (manual Slight 03/12/17 06:57 Anisocytosis (manual) Slight 03/12/17 06:57 Alison Cells Slight 03/12/17 06:57 PT 13.0 SECONDS (9.7-12.2) H 03/11/17 01:04 INR 1.2 03/11/17 01:04 APTT 29 SECONDS (21-34) 03/11/17 01:04 Puncture Site Rb 03/11/17 00:40 pCO2 39 mm/Hg (35-45) 03/11/17 00:40 pO2 67 mm/Hg (80-100) L 03/11/17 00:40 HCO3 29.5 mmol/L (21-28) H 03/11/17 00:40 ABG pH 7.49 (7.35-7.45) H 03/11/17 00:40 ABG Total CO2 30.9 mmol/L (22-28) H 03/11/17 00:40 ABG O2 Saturation 97.6 % (95-98) 03/11/17 00:40 ABG Base Excess 5.9 mmol/L (-2.0-3.0) H 03/11/17 00:40 Alejandro Test Na 03/11/17 00:40 ABG Potassium 3.6 mmol/L (3.6-5.2) 03/11/17 00:40 A-a O2 Difference 134.0 mm/Hg 03/11/17 00:40 Respiratory Index 2.0 03/11/17 00:40 Sodium 136.0 mmol/l (132-148) 03/11/17 00:40 Chloride 101.0 mmol/L (98-107) 03/11/17 00:40 Glucose 151 mg/dl (65-105) H 03/11/17 00:40 Lactate 0.6 mmol/L (0.7-2.1) L 03/11/17 00:40 FiO2 35.0 % 03/11/17 00:40 Sodium 135 mmol/L (132-148) 03/13/17 06:30 Potassium 3.5 mmol/L (3.6-5.2) L 03/13/17 06:30 Chloride 91 mmol/L (98-107) L 03/13/17 06:30 Carbon Dioxide 31 mmol/L (22-30) H 03/13/17 06:30 Anion Gap 17 (10-20) 03/13/17 06:30 BUN 42 mg/dL (7-17) H 03/13/17 06:30 Creatinine 1.2 MG/DL (0.7-1.2) 03/13/17 06:30 Est GFR ( Amer) 53 03/13/17 06:30 Est GFR (Non-Af Amer) 44 03/13/17 06:30 Random Glucose 162 mg/dL (65-105) H 03/13/17 06:30 Calcium 8.6 mg/dl (8.6-10.4) 03/13/17 06:30 Magnesium 1.8 mg/dL (1.6-2.3) 03/11/17 01:04 Total Bilirubin 0.5 mg/dL (0.2-1.3) 03/13/17 06:30 AST 59 U/L (14-36) H D 03/13/17 06:30 ALT 66 U/L (9-52) H D 03/13/17 06:30 Alkaline Phosphatase 84 U/L (38-126) 03/13/17 06:30 Total Creatine Kinase 27 U/L (30-135) L 03/11/17 13:58 CK-MB (Mass) 0.90 ng/mL (0.0-3.38) 03/11/17 13:58 Troponin I 0.0130 ng/mL (0.00-0.120) 03/11/17 01:04 Troponin I, Quant < 0.0120 ng/mL (0.00-0.120) 03/11/17 13:58 NT-Pro-B Natriuret Pep 1080 pg/mL (0-900) H 03/11/17 01:04 Total Protein 6.5 g/dL (6.3-8.3) 03/13/17 06:30 Albumin 3.2 g/dL (3.5-5.0) L 03/13/17 06:30 Globulin 3.3 gm/dL (2.2-3.9) 03/13/17 06:30 Albumin/Globulin Ratio 1.0 (1.0-2.1) 03/13/17 06:30 Triglycerides 45 mg/dL (0-149) 03/11/17 08:03 Cholesterol 119 mg/dL (0-199) 03/11/17 08:03 LDL Cholesterol Direct 50 mg/dL (0-129) 03/11/17 08:03 HDL Cholesterol 45 mg/dL (30-70) 03/11/17 08:03 Thyroxine (T4) 6.78 ug/dL (5.5-11.0) 03/11/17 08:03 TSH 3rd Generation 0.82 mIU/L (0.46-4.68) 03/11/17 08:03 Arterial Blood Potassium 3.6 mmol/L (3.6-5.2) 03/11/17 00:40 Urine Color Yellow (YELLOW) 03/12/17 14:24 Urine Clarity Hazy (Clear) 03/12/17 14:24 Urine pH 5.0 (5.0-8.0) 03/12/17 14:24 Ur Specific [place] 1.016 (1.003-1.030) 03/12/17 14:24 Urine Protein Negative mg/dL (NEGATIVE) 03/12/17 14:24 Urine Glucose (UA) Normal mg/dL (Normal) 03/12/17 14:24 Urine Ketones Negative mg/dL (NEGATIVE) 03/12/17 14:24 Urine Blood Negative (NEGATIVE) 03/12/17 14:24 Urine Nitrate Negative (NEGATIVE) 03/12/17 14:24 Urine Bilirubin Negative (NEGATIVE) 03/12/17 14:24 Urine Urobilinogen 2.0 mg/dL (0.2-1.0) H 03/12/17 14:24 Ur Leukocyte Esterase Trace Arnie/uL (Negative) 03/12/17 14:24 Urine WBC (Auto) 6 /hpf (0-5) H 03/12/17 14:24 Urine RBC (Auto) 4 /hpf (0-3) H 03/12/17 14:24 Ur Squamous Epith Cells 20 /hpf (0-5) H 03/12/17 14:24 Urine Bacteria Rare (<OCC) 03/12/17 14:24 - Hospital Course Hospital Course: Patient is a 71 year old female with PMHx of HTN, COPD, HLD who presents with complaint of bilateral feet swelling since Wednesday. Patient states she woke up with the feet swelling on Wednesday. Patient states she has had feet swelling before but not as severe. Patient states that her left leg feels more swollen than right and both feet are painful. Patient denies difficulty breathing and states she uses nebulizer at home occasionally. Patient has chronic cough that is occasionally produtive of clear sputum, but patient states this is unchanged from her baseline. Patient states she usually sleeps with 1-2 pillows but does not like to lay completely flat. Patient states she walks to [facility] [place] , which is about 5 blocks from her home. Patient states she normally takes one break to rest during that walk and was able to walk this past as she normally does. Patient denies prior diagnosis of heart failure but does state there is significant cardiac history in her family. Patient denies chest pain, palpitations, diaphoresis, weakness, dizziness. 71-year-old female with past medical history significant for hypertension dyslipidemia COPD arthritis presented with complains of bilateral feet discomfort and swelling according to the patient she woke up on Wednesday morning and felt that her feet are swollen and uncomfortable. She described her right leg swelling worse than the left accompanied with discomfort and pain she has known chronic cough productive of clear sputum. At baseline she has 1-2 pillow orthopnea she can walk 5 blocks from her home to the [place] every Wednesday walks up 3 flights of stairs does have at baseline NYHA functional class I 2 dyspnea denies any chest pain palpitations diaphoresis weakness dizziness. Past medical history as stated above significant for hypertension COPD hyperlipidemia arthritis patient's home medications include valsartan/HCTZ cilostazol simvastatin and Plavix surgeries patient had stenting of the legs appendectomy abdominal hernia repair and partial thyroidectomy social history half pack per day smoker denies any alcohol or cigarette use lives with granddaughter when dependent of activities of daily living and uses walker. 03/11/17 patient was sent for an echo, duplex US of the lower extremity, and a foot Xray 03/12/17 patient had a stress echo in order to determine if there was any signs of ischemia requiring cardiologic intervention 03/13/17 patient was cleared to follow up with cardio as an outpatient. Patient was discharged - Date & Time of H&P Date of H&P: 03/11/17 Time of H&P: 03:23 Discharge Exam - Head Exam Head Exam: ATRAUMATIC, NORMAL INSPECTION, NORMOCEPHALIC - Eye Exam Eye Exam: EOMI - ENT Exam ENT Exam: Mucous Membranes Moist - Respiratory Exam Respiratory Exam: NORMAL BREATHING PATTERN, UNREMARKABLE - Cardiovascular Exam Cardiovascular Exam: REGULAR RHYTHM - GI/Abdominal Exam GI & Abdominal Exam: Soft. absent: Distended, Firm, Tenderness - Neurological Exam Neurological exam: Alert, Oriented x3 - Psychiatric Exam Psychiatric exam: Normal Affect, Normal Mood - Skin Skin Exam: Dry, Intact, Normal Color, Warm Discharge Plan - Discharge Medications Prescriptions: Albuterol/Ipratropium [Duoneb 3 mg/0.5 mg (3 ml) UD] 3 ml INH RQ4 PRN #1 PRN Reason: Shortness Of Breath Aspirin [Aspirin Chewable] 81 mg PO DAILY #30 Carvedilol [Coreg] 3.125 mg PO BID #60 tab Cilostazol [Pletal] 100 mg PO DAILY #30 Clopidogrel [Plavix] 1 tab PO DAILY #30 Clotrimazole 1% Cream [Lotrimin 1%] 1 gm TOP BID #1 diltiaZEM CD [Cardizem CD] 120 mg PO DAILY #30 cap Fluticasone/Salmeterol 250/50 [Advair Diskus 250/50] 1 puff INH RQ12 #1 puff Simvastatin 40 mg PO DAILY #30 Spironolactone [Aldactone] 25 mg PO DAILY 30 Days Valsartan/Hydrochlorothiazide [Valsartan-Hctz 320-25 mg Tab] 1 tab PO DAILY #30 - Follow Up Plan Condition: FAIR Disposition: HOME/ ROUTINE Instructions: Heart Failure (DC), Heart Failure (GEN), Pacemaker (DC), Pacemaker (GEN), Pulmonary Edema (DC), Pulmonary Edema (GEN), COPD (Chronic Obstructive Pulmonary Disease) (DC), Ascites (DC), Ascites (GEN), Hypertension ( DC), Hypertension (GEN) Additional Instructions: From a cardiology standpoint, Patient is stable and clear for d/c. Please follow up in Dr. Correa's office in one week. Please call his office to make an appointment. The number to the office is provided. From a medical standpoint, patient is stable and clear for d/c. Please follow up with your primary care doctor, Dr. Eden in one week. Please call his office to make an appointment. The number to the office is provided. Prescription instructions will be provided to you upon discharge. Please return to the ED if symptoms return. Referrals: Ayush Correa MD [Staff Provider] - Jesus Eden [Staff Provider] - Clinical Quality Measures - CQM - Heart Failure Ejection Fraction: 40 % or Greater OTILIO Inhibitor Prescribed: Yes Beta-Chanelle Prescribed: Carvedilol Will be discharged to: Home Follow Up Date (must be within 7 days from discharge): 03/19/17 Follow Up Time: 09:00 - Date & Time of Discharge Summary Date of Discharge Summary: 03/11/17 Time of Discharge Summary: 03:23 <Chavez Henderson - Last Filed: 03/15/17 07:10> Provider - Provider Date of Admission: 03/11/17 02:32 Attending physician: Александр Brothers MD Hospital Course - Lab Results Lab Results: Most Recent Lab Values WBC 11.4 K/uL (4.8-10.8) H 03/13/17 06:30 RBC 3.63 Mil/uL (3.80-5.20) L 03/13/17 06:30 Hgb 10.5 g/dL (11.0-16.0) L 03/13/17 06:30 Hct 30.3 % (34.0-47.0) L 03/13/17 06:30 MCV 83.3 fL (81.0-99.0) 03/13/17 06:30 MCH 28.9 pg (27.0-31.0) 03/13/17 06:30 MCHC 34.7 g/dL (33.0-37.0) 03/13/17 06:30 RDW 14.7 % (11.5-14.5) H 03/13/17 06:30 Plt Count 360 K/uL (130-400) 03/13/17 06:30 MPV 6.7 fL (7.2-11.7) L 03/13/17 06:30 Neut % (Auto) 70.8 % (50.0-75.0) 03/13/17 06:30 Lymph % (Auto) 19.4 % (20.0-40.0) L 03/13/17 06:30 Carbon % (Auto) 8.7 % (0.0-10.0) 03/13/17 06:30 Eos % (Auto) 0.9 % (0.0-4.0) 03/13/17 06:30 Baso % (Auto) 0.2 % (0.0-2.0) 03/13/17 06:30 Neut # 8.0 K/uL (1.8-7.0) H 03/13/17 06:30 Lymph # 2.2 K/uL (1.0-4.3) 03/13/17 06:30 Carbon # 1.0 K/uL (0.0-0.8) H 03/13/17 06:30 Eos # 0.1 K/uL (0.0-0.7) 03/13/17 06:30 Baso # 0.0 K/uL (0.0-0.2) 03/13/17 06:30 Neutrophils % (Manual) 89 % (50-75) H 03/12/17 06:57 Lymphocytes % (Manual) 5 % (20-40) L 03/12/17 06:57 Monocytes % (Manual) 6 % (0-10) 03/12/17 06:57 Platelet Estimate Normal (NORMAL) 03/12/17 06:57 Hypochromasia (manual) Slight 03/12/17 06:57 Poikilocytosis (manual Slight 03/12/17 06:57 Anisocytosis (manual) Slight 03/12/17 06:57 [place] Cells Slight 03/12/17 06:57 PT 13.0 SECONDS (9.7-12.2) H 03/11/17 01:04 INR 1.2 03/11/17 01:04 APTT 29 SECONDS (21-34) 03/11/17 01:04 Puncture Site Rb 03/11/17 00:40 pCO2 39 mm/Hg (35-45) 03/11/17 00:40 pO2 67 mm/Hg (80-100) L 03/11/17 00:40 HCO3 29.5 mmol/L (21-28) H 03/11/17 00:40 ABG pH 7.49 (7.35-7.45) H 03/11/17 00:40 ABG Total CO2 30.9 mmol/L (22-28) H 03/11/17 00:40 ABG O2 Saturation 97.6 % (95-98) 03/11/17 00:40 ABG Base Excess 5.9 mmol/L (-2.0-3.0) H 03/11/17 00:40 Alejandro Test Na 03/11/17 00:40 ABG Potassium 3.6 mmol/L (3.6-5.2) 03/11/17 00:40 A-a O2 Difference 134.0 mm/Hg 03/11/17 00:40 Respiratory Index 2.0 03/11/17 00:40 Sodium 136.0 mmol/l (132-148) 03/11/17 00:40 Chloride 101.0 mmol/L (98-107) 03/11/17 00:40 Glucose 151 mg/dl (65-105) H 03/11/17 00:40 Lactate 0.6 mmol/L (0.7-2.1) L 03/11/17 00:40 FiO2 35.0 % 03/11/17 00:40 Sodium 135 mmol/L (132-148) 03/13/17 06:30 Potassium 3.5 mmol/L (3.6-5.2) L 03/13/17 06:30 Chloride 91 mmol/L (98-107) L 03/13/17 06:30 Carbon Dioxide 31 mmol/L (22-30) H 03/13/17 06:30 Anion Gap 17 (10-20) 03/13/17 06:30 BUN 42 mg/dL (7-17) H 03/13/17 06:30 Creatinine 1.2 MG/DL (0.7-1.2) 03/13/17 06:30 Est GFR ( Amer) 53 03/13/17 06:30 Est GFR (Non-Af Amer) 44 03/13/17 06:30 Random Glucose 162 mg/dL (65-105) H 03/13/17 06:30 Calcium 8.6 mg/dl (8.6-10.4) 03/13/17 06:30 Magnesium 1.8 mg/dL (1.6-2.3) 03/11/17 01:04 Total Bilirubin 0.5 mg/dL (0.2-1.3) 03/13/17 06:30 AST 59 U/L (14-36) H D 03/13/17 06:30 ALT 66 U/L (9-52) H D 03/13/17 06:30 Alkaline Phosphatase 84 U/L (38-126) 03/13/17 06:30 Total Creatine Kinase 27 U/L (30-135) L 03/11/17 13:58 CK-MB (Mass) 0.90 ng/mL (0.0-3.38) 03/11/17 13:58 Troponin I 0.0130 ng/mL (0.00-0.120) 03/11/17 01:04 Troponin I, Quant < 0.0120 ng/mL (0.00-0.120) 03/11/17 13:58 NT-Pro-B Natriuret Pep 1080 pg/mL (0-900) H 03/11/17 01:04 Total Protein 6.5 g/dL (6.3-8.3) 03/13/17 06:30 Albumin 3.2 g/dL (3.5-5.0) L 03/13/17 06:30 Globulin 3.3 gm/dL (2.2-3.9) 03/13/17 06:30 Albumin/Globulin Ratio 1.0 (1.0-2.1) 03/13/17 06:30 Triglycerides 45 mg/dL (0-149) 03/11/17 08:03 Cholesterol 119 mg/dL (0-199) 03/11/17 08:03 LDL Cholesterol Direct 50 mg/dL (0-129) 03/11/17 08:03 HDL Cholesterol 45 mg/dL (30-70) 03/11/17 08:03 Thyroxine (T4) 6.78 ug/dL (5.5-11.0) 03/11/17 08:03 TSH 3rd Generation 0.82 mIU/L (0.46-4.68) 03/11/17 08:03 Arterial Blood Potassium 3.6 mmol/L (3.6-5.2) 03/11/17 00:40 Urine Color Yellow (YELLOW) 03/12/17 14:24 Urine Clarity Hazy (Clear) 03/12/17 14:24 Urine pH 5.0 (5.0-8.0) 03/12/17 14:24 Ur Specific [place] 1.016 (1.003-1.030) 03/12/17 14:24 Urine Protein Negative mg/dL (NEGATIVE) 03/12/17 14:24 Urine Glucose (UA) Normal mg/dL (Normal) 03/12/17 14:24 Urine Ketones Negative mg/dL (NEGATIVE) 03/12/17 14:24 Urine Blood Negative (NEGATIVE) 03/12/17 14:24 Urine Nitrate Negative (NEGATIVE) 03/12/17 14:24 Urine Bilirubin Negative (NEGATIVE) 03/12/17 14:24 Urine Urobilinogen 2.0 mg/dL (0.2-1.0) H 03/12/17 14:24 Ur Leukocyte Esterase Trace Arnie/uL (Negative) 03/12/17 14:24 Urine WBC (Auto) 6 /hpf (0-5) H 03/12/17 14:24 Urine RBC (Auto) 4 /hpf (0-3) H 03/12/17 14:24 Ur Squamous Epith Cells 20 /hpf (0-5) H 03/12/17 14:24 Urine Bacteria Rare (<OCC) 03/12/17 14:24 Attending/Attestation - Attestation I have personally seen and examined this patient.: Yes I have fully participated in the care of the patient.: Yes I have reviewed all pertinent clinical information, including history, physical exam and plan: Yes Notes (Text): 03/15/17 07:03 Medical Attending: Patient was seen and examined by me. Agree with the above note by the resident. She felt ready to be discharged. The patient had, as mentioned above in resident note stress test as well as echo done. She was also evaluated by cardiology as well. She reported no chest pain, breathing was ok as well. thank you Chavez Henderson
[2017-03-14] MEDS ORDERED: Pneumococcal 23-Valent Vaccine IM ONE (14:00)
--- NOTE | 2017-03-14 18:13 | CARD ---
APPROVED REPORT EKG Measurement Heart [id number] <Conclusion> Sinus tachycardia Possible Inferior infarct, age undetermined Abnormal ECG
--- NOTE | 2017-03-15 11:35 | CARD ---
APPROVED REPORT EXAM: Two-dimensional and M-mode echocardiogram with Doppler and color Doppler. Other Information Quality : GoodRhythm : NSR INDICATION Dyspnea Peripheral Edema Congestive Heart Failure RISK FACTORS Hypertension Hyperlipidemia 2D DIMENSIONS IVSd1.1 (0.7-1.1cm)LVDd4.4 (3.9-5.9cm) PWd1.1 (0.7-1.1cm)LVDs3.1 (2.5-4.0cm) FS (%) 28.3 %LVEF (%)55.0 (>50%) M-Mode DIMENSIONS RVDd1.76 (2.1-3.2cm)Left Atrium (MM)3.75 (2.5-4.0cm) IVSd1.11 (0.7-1.1cm)Aortic Root2.97 (2.2-3.7cm) LVDd5.76 (4.0-5.6cm)Aortic Cusp Exc.1.95 (1.5-2.0cm) PWd0.95 (0.7-1.1cm)FS (%) 36 % LVDs3.68 (2.0-3.8cm)LVEF (%)65 (>50%) Mitral Valve MV A Ghbxryvs233.0cm/sE/A ratio0.0 TDI E/Lateral E'0.0E/Medial E'0.0 Tricuspid Valve TR Peak [id number]/sTR Peak Gr.[id number] LEFT VENTRICLE The left ventricle is normal size. There is borderline to mild concentric left ventricular hypertrophy. The left ventricular function is normal. The left ventricular ejection fraction is within the normal range. There is normal LV segmental wall motion. Transmitral Doppler flow pattern is Grade I-abnormal relaxation pattern. RIGHT VENTRICLE The right ventricle is normal size. There is normal right ventricular wall thickness. The right ventricular systolic function is normal. ATRIA The left atrium size is normal. The right atrium size is normal. The interatrial septum is intact with no evidence for an atrial septal defect. AORTIC VALVE The aortic valve is mildly calcified. No aortic regurgitation is present. There is no aortic valvular stenosis. There is no aortic valvular vegetation. MITRAL VALVE Mitral annular calcification is mild. There is no evidence of mitral valve prolapse. There is no mitral valve stenosis. Mitral regurgitation is mild. TRICUSPID VALVE The tricuspid valve is normal in structure. There is mild tricuspid regurgitation. There is no tricuspid valve prolapse or vegetation. There is no tricuspid valve stenosis. PULMONIC VALVE The pulmonary valve is normal in structure. There is no pulmonic valvular regurgitation. There is no pulmonic valvular stenosis. GREAT VESSELS The aortic root is normal in size. The ascending aorta is normal in size. The IVC is normal in size and collapses >50% with inspiration. PERICARDIAL EFFUSION There is no pericardial effusion. There is no pleural effusion. <Conclusion> There is borderline to mild concentric left ventricular hypertrophy. The left ventricular ejection fraction is within the normal range. Transmitral Doppler flow pattern is Grade I-abnormal relaxation pattern. The aortic valve is mildly calcified. Mitral annular calcification is mild. Mitral regurgitation is mild. There is mild tricuspid regurgitation.
--- NOTE | 2017-03-15 15:01 | VASCLAB ---
PROCEDURE: Lower Extremity Venous Duplex Exam. HISTORY: Lower extremity swelling PRIORS: Last venous duplex exam 2008, normal. TECHNIQUE: Bilateral common femoral, femoral, popliteal and posterior tibial, peroneal and great saphenous veins were evaluated. Flow was assessed with color Doppler, compressibility, assessment of phasic flow and augmentation response. Report prepared by SHAVON Livingston FINDINGS: RIGHT: 1. Common Femoral Vein: 1.1. Compressibility - Fully compressible: Thrombus - None : Flow - Phasic: Augmentation -Normal: Reflux - None. 2. Femoral Vein: 2.1. Compressibility - Fully compressible: Thrombus - None : Flow - Phasic: Augmentation -Normal: Reflux - None. 3. Popliteal Vein: 3.1. Compressibility - Fully compressible: Thrombus - None : Flow - Phasic: Augmentation -Normal: Reflux - None. 4. Posterior Tibial Vein: 4.1. Compressibility - Fully compressible: Thrombus - None: Flow - Phasic: Augmentation -Normal: Reflux - None. 5. Peroneal Vein: 5.1. Compressibility - Fully compressible: Thrombus - None: Flow - Phasic: Augmentation -Normal: Reflux - None. 6. Great Saphenous Vein: 6.1. Compressibility - Fully compressible: Thrombus - None: Flow - Phasic: Augmentation - Normal: Reflux - None. LEFT: 1. Common Femoral Vein: 1.1. Compressibility - Fully compressible: Thrombus - None: Flow - Phasic: Augmentation -Normal: Reflux - None. 2. Femoral Vein: 2.1. Compressibility - Fully compressible: Thrombus - None: Flow - Phasic: Augmentation -Normal: Reflux - None. 3. Popliteal Vein: 3.1. Compressibility - Fully compressible: Thrombus - None : Flow - Phasic: Augmentation -Normal: Reflux - None. 4. Posterior Tibial Vein: 4.1. Compressibility - Fully compressible: Thrombus - None: Flow - Phasic: Augmentation -Normal: Reflux - None. 5. Peroneal Vein: 5.1. Compressibility - Fully compressible: Thrombus - None: Flow - Phasic: Augmentation -Normal: Reflux - None. 6. Great Saphenous Vein: 6.1. Compressibility - Fully compressible: Thrombus - None: Flow - Phasic: Augmentation - Normal: Reflux - None. OTHER FINDINGS: Right: None significant. Left: None significant. IMPRESSION: Right: No evidence of deep or superficial vein thrombosis of the right lower extremity. Normal valve function noted of the right side. Left: No evidence of deep or superficial vein thrombosis of the left lower extremity. Normal valve function noted of the left side.
== END 2017-03-13 19:30 | disposition home or self-care (01) | DRG 292 ==
LOC: C.ER 23:20 → C.9E 03-11 02:32 → C.6T 03-11 03:06
PROVIDERS: ADMIT Family Medicine; ATTEND Family Medicine
DX: I11.0 Hypertensive heart disease with heart failure (principal); J44.1 Chronic obstructive pulmonary disease with (acute) exacerbation; I50.31 Acute diastolic (congestive) heart failure; I73.9 Peripheral vascular disease, unspecified; I25.9 Chronic ischemic heart disease, unspecified; E78.00 Pure hypercholesterolemia, unspecified; E78.5 Hyperlipidemia, unspecified; F17.210 Nicotine dependence, cigarettes, uncomplicated; M77.30 Calcaneal spur, unspecified foot; Z79.02 Long term (current) use of antithrombotics/antiplatelets

== ENCOUNTER 2017-10-11 14:36 | Inpatient (IN) | payer MEDICARE ==
[2017-10-11] MEDS ORDERED: Sodium Chloride 0.9% 1,000 ML IV ONE (15:24)
--- NOTE | 2017-10-11 15:24 | C.PDOC ---
History Of Present Illness 72 year old female brought by family to the Emergency Department for evaluation of right-sided neck mass. Patient is poor historian, and daughter provided history. They are unsure of exact onset, likely about 2 months ago. They report associated hoarseness of voice, cough, congestion, and difficulty swallowing. Patient has chronic cough and occasionally has sputum. They state patient has lost 15 pounds unintentionally in the last 4 months. Family states they took patient to pulonologist Dr Krueger today, who referred patient to ED and gave Rx for CT of the neck and an ENT consult. Patient did not have mass in June at most recent check-up. PMD: Dr. Eden Medical Aide: Dr. Lexa Dumont Time Seen by Provider: 10/11/17 15:03 Chief Complaint (Nursing): ENT Problem History Per: Family (daughter) History/Exam Limitations: None Onset/Duration Of Symptoms: Days (x 2 months) Current Symptoms Are (Timing): Still Present Past Medical History Reviewed: Historical Data, Nursing Documentation, Vital Signs Vital Signs: Last Vital Signs Temp 98 F 10/11/17 18:01 Pulse 89 10/11/17 18:01 Resp 16 10/11/17 18:01 BP 137/82 10/11/17 18:01 Pulse Ox 99 10/11/17 18:19 - Medical History PMH: COPD, HTN, Hypercholesterolemia, Hyperlipidemia Denies: Chronic Kidney Disease Other Surgeries: 4 stents Family History: States: Unknown Family Hx - Social History Hx Tobacco Use: Yes Hx Alcohol Use: No Hx Substance Use: No - Immunization History Hx Tetanus Toxoid Vaccination: No Hx Influenza Vaccination: No Hx Pneumococcal Vaccination: No Review Of Systems Constitutional: Positive for: Weight loss. Negative for: Fever ENT: Positive for: Nose Congestion, Other (Difficulty swallowing, Hoarse voice, right-sided neck mass) Respiratory: Positive for: Cough Physical Exam - Physical Exam Appears: Non-toxic, No Acute Distress Skin: Normal Color, Warm, Dry Head: Atraumatic, Normacephalic Eye(s): bilateral: Normal Inspection, PERRL, EOMI Nose: Normal, No Flaring Oral Mucosa: Moist Tongue: Normal Appearing, No Swelling Lips: Normal Appearing, No Swelling Teeth: Dentures Throat: Normal, No Erythema, No Exudate, No Drooling, No Other (swelling) Neck: Normal ROM, Trachea Midline, No Midline Cervical Tenderness, No Paracervical Tenderness, Other (Right-sided sub-mandibular anterior mass, non- tender. no erythema or skin changes) Chest: Symmetrical Cardiovascular: Rhythm Regular Respiratory: No Accessory Muscle Use, Rhonchi, Wheezing, No Other (respiratory distress) Gastrointestinal/Abdominal: Bowel Sounds (active), Soft, No Tenderness, No Guarding Extremity: Bilateral: Atraumatic, Normal Color And Temperature, Normal ROM Neurological/Psych: Eyes Open With Command, Other (Awake and alert, oriented to person) Gait: Unable To Assess ED Course And Treatment - Laboratory Results Result Diagrams: 10/11/17 15:32 10/11/17 15:32 Lab Interpretation: Abnormal ECG: Interpreted By Me, Viewed By Me (Dr Sears) ECG Rhythm: Sinus Tachycardia ECG Interpretation: No Acute Changes Rate From EC O2 Sat by Pulse Oximetry: 99 (RA) Pulse Ox Interpretation: Normal - CT Scan/US Neck w/ contrast Other Rad Studies (CT/US): Read By Radiologist, Radiology Report Reviewed CT/US Interpretation: HISTORY: Right-sided neck mass. COMPARISON: No prior study available for comparison. TECHNIQUE: Intravenous contrast dose: 100 cc Visipaque 320. Radiation dose: DLP 389.99 mGy-cm. This CT exam was performed using one or more of the following dose reduction techniques: Automated exposure control, adjustment of the mA and/or kV according to patient size, and/ or use of iterative reconstruction technique. FINDINGS: The current study reveals heterogeneous masses in both the jugulodigastric regions likely representing a conglomeration of necrotic lymph nodes. The right-sided jugulodigastric heterogeneous mass measures approximately 3.0 x 2.3 x 2.0 cm. The left-sided mass measures approximately 4.4 x 1.8 x 1.9 cm the with a necrotic component that extends superiorly and posteriorly dorsal to the left parotid gland. . Additionally, there are smaller partially necrotic lymph nodes seen within the posterior cervical spaces inferiorly to the jugulodigastric adenopathy. Findings may represent metastatic squamous cell carcinoma given the findings of enlarged heterogeneous appearance of the free margin of the epiglottis with extension inferiorly into the aryepiglottic folds and true vocal cords with circumferential extension posteriorly above the level of the true cords. . There is asymmetry of the pyriform sinuses due to encroaching soft tissue. . The airway is also somewhat narrowed due to medial encroachment by aforementioned soft tissue masses. The major salivary glands and thyroid gland appears unremarkable. Common carotid arteries are widely patent. Partially calcified atherosclerotic plaque seen along both carotid bifurcations with apparent significant narrowing of the right proximal internal carotid artery . Follow-up carotid Doppler may be of some benefit. . There is asymmetry of the vertebral arteries low left-sided which is larger in caliber/ more dominant than the right. Multilevel degenerative spondylosis of the cervical spine. Significant emphysematous changes with biapical pleural thickening and parenchymal scarring seen in the lung apices and upper lung zones. IMPRESSION: There is bulky soft tissue enlargement of the free margin of the epiglottis, aryepiglottic folds with circumferential extension above the level of the true cords and inferior extension to involve the true cords as well. 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 Note these findings were discussed with on the emergency room physician's speech assistant Demario at 6 p.m. with written down and read back verification. Significant emphysematous changes with biapical pleural thickening and parenchymal scarring. Atherosclerotic disease right carotid bifurcation and proximal internal carotid artery with significant stenosis. Consider followup carotid Doppler. See above discussion for additional details and findings. Medical Decision Making Medical Decision Making: Initial Impression: Right neck mass Plan: --EKG --Pro-BNP --CMP --CBC --PTT --Prothrombin time --Blood culture --Urinalysis --IV fluids --6 L O2 via nasal cannula --Chest x-ray --CT Neck Soft Tissue W/WO contrast Progress: CXR shows no active pulmonary disease EKG shows ST at 102 bpm with no acute ST-T changes Labs reviewed. No elevated WBC. Borderline low NaCl. [address] Carlson calls ED to report abnormal CT finding of necrotic mass, see full report. ENT consult Dr Hull PMD DR Eden admits to hospitalist. 1817 Case discussed with hospitalist Dr Sai Henderson. He accepts patient to hospitalist service, and patient care will go to Dr Mcallister. Disposition Counseled Patient/Family Regarding: Diagnosis - Disposition Disposition: HOSPITALIZED Disposition Time: 18:18 Condition: STABLE - POA Present On Arrival: None - Clinical Impression Clinical Impression: COPD (chronic obstructive pulmonary disease), Mass of right side of neck - PA / RANGER AIDE / Resident Statement MD/DO has reviewed & agrees with the documentation as recorded. - Scribe Statement The provider has reviewed the documentation as recorded by the Scribe (Swetha Escudero) All medical record entries made by the Scribe were at my direction and personally dictated by me. I have reviewed the chart and agree that the record accurately reflects my personal performance of the history, physical exam, medical decision making, and the department course for this patient. I have also personally directed, reviewed, and agree with the discharge instructions and disposition. Decision To Admit - Pt Status Changed To: Hospital Disposition Of: Inpatient - Admit Certification Admit to Inpatient:: After my assessment, the patient will require hospitalization for at least two midnights. This is because of the severity of symptoms shown, intensity of services needed, and/or the medical risk in this patient being treated as an outpatient. - InPatient: Physician Admission Certification: I certify that this patient requires 2 or more midnights of care for the following reason:: Patient has nectrotic neck mass that is affecting patient speech and appetite. Patient will need further workup and consults inpatient. Patient stable for admission. - . Bed Request Type: Regular Admitting Physician: Dion Mcallister Patient Diagnosis: COPD (chronic obstructive pulmonary disease), Mass of right side of neck
[2017-10-11 15:37] LABS: BASO # 0.1 K/uL (0.0-0.2); BASO % 1.3 % (0.0-2.0); EOS # 0.2 K/uL (0.0-0.7); EOS % 2.7 % (0.0-4.0); HEMOGLOBIN 12.5 g/dL (11.0-16.0); LYMPH % 16.6 % (20.0-40.0); MEAN CELL VOLUME 83.3 fL (81.0-99.0); MEAN CORPUSCULAR HEMOGLOBIN 28.6 pg (27.0-31.0); MEAN CORPUSCULAR HGB CONC 34.4 g/dL (33.0-37.0); MONO # 0.5 K/uL (0.0-0.8); MONO % 8.6 % (0.0-10.0); NEUT # 4.1 K/uL (1.8-7.0); NEUT % 70.8 % (50.0-75.0); NRBC % 0.1 % (0.0-2.0); RBC 4.36 Mil/uL (3.80-5.20); RED CELL DISTRIBUTION WIDTH 15.1 % (11.5-14.5); WHITE BLOOD COUNT 5.8 K/uL (4.8-10.8)
[2017-10-11 15:44] LABS: PROTHROMBIN TIME 10.9 SECONDS (9.7-12.2)
[2017-10-11 15:50] LABS: ALT/SGPT 19 U/L (9-52); AST/SGOT 33 U/L (14-36); BLOOD UREA NITROGEN 16 mg/dL (7-17); GFR AFRICAN-AMERICAN > 60; GFR NON-AFRICAN AMERICAN > 60
[2017-10-11 16:00] LABS: B-TYPE NATRIURETIC PEPTIDE 526 pg/mL (0-900)
[2017-10-11] MEDS ORDERED: Iodixanol 320 MG/ML 100 ML BOTTLE IV ONE (16:11)
[2017-10-11 16:34] LABS: SQUAMOUS EPITHIAL 2 /hpf (0-5); URINE BILIRUBIN NEGATIVE (NEGATIVE); URINE BLOOD NEGATIVE (NEGATIVE); URINE CLARITY Hazy (Clear); URINE COLOR Straw (YELLOW); URINE GLUCOSE (UA) NORMAL (Normal); URINE LEUKOCYTE ESTERASE NEG Leu/uL (Negative); URINE PROTEIN NEGATIVE (NEGATIVE); URINE UROBILINOGEN NORMAL mg/dL (0.2-1.0)
--- NOTE | 2017-10-11 16:41 | RAD ---
PROCEDURE: CHEST RADIOGRAPH, 1 VIEW HISTORY: Shortness of breath COMPARISON: 03/11/2017. FINDINGS: LUNGS: The lungs are well inflated and clear PLEURA: No pneumothorax or pleural fluid seen. CARDIOVASCULAR: The heart is normal in size. Atherosclerotic aortic arch calcifications are present. OSSEOUS STRUCTURES: No significant abnormalities. VISUALIZED UPPER ABDOMEN: Normal. OTHER FINDINGS: None. IMPRESSION: No active pulmonary disease.
--- NOTE | 2017-10-11 18:08 | CT ---
PROCEDURE: CT scan neck dated 10/11/2017 HISTORY: Right-sided neck mass COMPARISON: No prior study available for comparison TECHNIQUE: Intravenous contrast dose: 100 cc Visipaque 320 Radiation dose: DLP 389.99 mGy-cm This CT exam was performed using one or more of the following dose reduction techniques: Automated exposure control, adjustment of the mA and/or kV according to patient size, and/or use of iterative reconstruction technique FINDINGS: The current study reveals heterogeneous masses in both the jugulodigastric regions likely representing a conglomeration of necrotic lymph nodes. The right-sided jugulodigastric heterogeneous mass measures approximately 3.0 x 2.3 x 2.0 cm. The left-sided mass measures approximately 4.4 x 1.8 x 1.9 cm the with a necrotic component that extends superiorly and posteriorly dorsal to the left parotid gland. . Additionally, there are smaller partially necrotic lymph nodes seen within the posterior cervical spaces inferiorly to the jugulodigastric adenopathy. Findings may represent metastatic squamous cell carcinoma given the findings of enlarged heterogeneous appearance of the free margin of the epiglottis with extension inferiorly into the aryepiglottic folds and true vocal cords with circumferential extension posteriorly above the level of the true cords. . There is asymmetry of the pyriform sinuses due to encroaching soft tissue. . The airway is also somewhat narrowed due to medial encroachment by aforementioned soft tissue masses. The major salivary glands and thyroid gland appears unremarkable. Common carotid arteries are widely patent. Partially calcified atherosclerotic plaque seen along both carotid bifurcations with apparent significant narrowing of the right proximal internal carotid artery . Follow-up carotid Doppler may be of some benefit. . There is asymmetry of the vertebral arteries low left-sided which is larger in caliber/ more dominant than the right. Multilevel degenerative spondylosis of the cervical spine. Significant emphysematous changes with biapical pleural thickening and parenchymal scarring seen in the lung apices and upper lung zones. IMPRESSION: There is bulky soft tissue enlargement of the free margin of the epiglottis, aryepiglottic folds with circumferential extension above the level of the true cords and inferior extension to involve the true cords as well. 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 Note these findings were discussed with on the emergency room physician's captain's assistant Demario at 6 p.m. with written down and read back verification Significant emphysematous changes with biapical pleural thickening and parenchymal scarring. Atherosclerotic disease right carotid bifurcation and proximal internal carotid artery with significant stenosis. Consider followup carotid Doppler. See above discussion for additional details and findings.
[2017-10-11 19:18] VITALS: RESP 20
[2017-10-11] MEDS ORDERED: Pneumococcal 23-Valent Vaccine IM ONE (20:34)
[2017-10-11] MEDS ORDERED: Influenza Vaccine 60 mcg/0.5 mL SYR (4YR UP) IM ONE (20:36)
[2017-10-11] MEDS ORDERED: Albuterol-Ipratrop 3 mg / 0.5 (3 ml) UD INH PRN (21:23)
--- NOTE | 2017-10-11 21:48 | CP.PCM.HP ---
<Virginia Gan - Last Filed: 10/11/17 22:32> History of Present Illness - History of Present Illness History of Present Illness: CC: right neck mass HPI: Patient is a 72 y/o F with pmhx of COPD, HTN, CHF who presents to the ER because her pulmonolgist Dr. Dumont sent her for a right sided neck mass he found on exam in the office today. Patient is a poor historian and information was added by her daughter and granddaughter. Patient says she noticed a neck lump a while ago (unsure of exact time), but it caused her no pain so she thought it would resolve. Dr. Dumont saw her in June and did not notice a mass at that time. Patient has been following up with Dr. Dumont for her COPD and was placed on home oxygen in June (uses 2L mostly during sleep). Patient says she has a chronic cough from smoking which she has everyday. She often coughs up clear phlegm. Today she noticed some streaks of blood in the sputum. Patient has also been having a hoarse voice for the past few months. Patient also has some difficulty swallowing solid foods and sometimes she has pain or regurgitates the food. Patient is able to drink liquids, but takes small sips. Patient has lost about 15 lbs in the last two months due to decreased appetite. Patient had lost weight about 1.5 years ago and had a bone scan done which was normal. Patient is short of breath at baseline. Patient sleeps sitting up and granddaughter says she has been sleeping more upright in the past month. Patient denies being sick recently or any sick contacts. Patient denies fevers, chest pain, palpitations, abdominal pain, nausea, vomiting, constipation, diarrhea, or urinary symptoms. PMD: Dr. Meek Canales: Dr. Dumont PMHx: COPD, HTN, CHF Psurg: cardiac stents 2010, L hernia 2010, partial thyroidectomy at age 28, appendectomy at age 15 Famhx: Dad: of [place] at 40 Sochx: smokes 1/2 pack now, smoked up to 2-3 packs per day at some points in life since age 12, denies alcohol and drugs. Patient lives with granddaughter and son. Present on Admission - Present on Admission Any Indicators Present on Admission: No History of DVT/PE: No History of Uncontrolled Diabetes: No Urinary Catheter: No Decubitus Ulcer Present: No Review of Systems - Constitutional Constitutional: Anorexia, Weight Loss. absent: Fever - EENT Eyes: absent: Blurred Vision Nose/Mouth/Throat: Change in Voice, Dysphagia, Hoarsness, Odynophagia, Neck Mass. absent: Neck Pain - Cardiovascular Cardiovascular: Dyspnea, Dyspnea on Exertion. absent: Chest Pain, Leg Edema, Palpitations - Respiratory Respiratory: Cough, Dyspnea, Dyspnea on Exertion, Excessive Mucous Production - Gastrointestinal Gastrointestinal: absent: Abdominal Pain, Constipation, Diarrhea, Hematochezia, Melena, Nausea, Vomiting - Genitourinary Genitourinary: absent: Change in Urinary Stream, Difficulty Urinating, Dysuria - Musculoskeletal Musculoskeletal: absent: Numbness, Tingling - Integumentary Integumentary: absent: Rash Past Patient History - Infectious Disease Hx of Infectious Diseases: None - Past Medical History & Family History Past Medical History?: Yes - Past Social History Smoking Status: Current Some Days Smoker - CARDIAC Hx Hypercholesterolemia: Yes Hx Hypertension: Yes - PULMONARY Hx Chronic Obstructive Pulmonary Disease (COPD): Yes - NEUROLOGICAL Hx Neurological Disorder: No - HEENT Hx HEENT Problems: No - RENAL Hx Chronic Kidney Disease: No - ENDOCRINE/METABOLIC Hx Endocrine Disorders: No - HEMATOLOGICAL/ONCOLOGICAL Hx Blood Disorders: No - INTEGUMENTARY Hx Dermatological Problems: No - MUSCULOSKELETAL/RHEUMATOLOGICAL Hx Musculoskeletal Disorders: No Hx Falls: No - GASTROINTESTINAL Hx Gastrointestinal Disorders: No - GENITOURINARY/GYNECOLOGICAL Hx Genitourinary Disorders: No - PSYCHIATRIC Hx Substance Use: No - SURGICAL HISTORY Hx Surgeries: Yes Hx Herniorrhaphy: Yes Hx Thyroidectomy: Yes Other/Comment: 4 stents placed for blood clots in legs. - ANESTHESIA Hx Anesthesia: Yes Hx Anesthesia Reactions: No Hx Malignant Hyperthermia: No Meds Allergies/Adverse Reactions: Allergies Allergy/AdvReac Type Severity Reaction Status Date / Time No Known Allergies Allergy Verified 03/10/17 23:35 Physical Exam - Constitutional Appears: Non-toxic, No Acute Distress - Head Exam Head Exam: ATRAUMATIC, NORMAL INSPECTION, NORMOCEPHALIC - Eye Exam Eye Exam: EOMI, Normal appearance - ENT Exam ENT Exam: Mucous Membranes Dry - Neck Exam Neck exam: Negative for: Tenderness Additional comments: r neck mass - Respiratory Exam Respiratory Exam: Rhonchi (b/l) - Cardiovascular Exam Cardiovascular Exam: REGULAR RHYTHM, RRR, +S1, +S2 - GI/Abdominal Exam GI & Abdominal Exam: Normal Bowel Sounds, Soft. absent: Tenderness - Extremities Exam Extremities exam: Positive for: normal inspection. Negative for: pedal edema, tenderness - Back Exam Back exam: NORMAL INSPECTION - Neurological Exam Neurological exam: Alert, Oriented x3 - Psychiatric Exam Psychiatric exam: Normal Affect, Normal Mood - Skin Skin Exam: Dry, Intact, Normal Color, Warm Results - Vital Signs Recent Vital Signs: Last Vital Signs Temp 98 F 10/11/17 19:16 Pulse 103 H 10/11/17 19:16 Resp 20 10/11/17 19:16 BP 123/75 10/11/17 19:16 Pulse Ox 95 10/11/17 19:16 - Labs Result Diagrams: 10/11/17 15:32 10/11/17 15:32 Labs: Laboratory Results - last 24 hr 10/11/17 10/11/17 10/11/17 15:03 15:32 15:32 WBC 5.8 RBC 4.36 Hgb 12.5 D Hct 36.3 MCV 83.3 MCH 28.6 MCHC 34.4 RDW 15.1 H Plt Count 282 MPV 7.0 L Neut % (Auto) 70.8 Lymph % (Auto) 16.6 L [place] % (Auto) 8.6 Eos % (Auto) 2.7 Baso % (Auto) 1.3 Neut # (Auto) 4.1 Lymph # (Auto) 1.0 [place] # (Auto) 0.5 Eos # (Auto) 0.2 Baso # (Auto) 0.1 PT 10.9 INR 1.0 APTT 29 Sodium Potassium Chloride Carbon Dioxide Anion Gap BUN Creatinine Est GFR ( Amer) Est GFR (Non-Af Amer) POC Glucose (mg/dL) 154 H Random Glucose Calcium Total Bilirubin AST ALT Alkaline Phosphatase NT-Pro-B Natriuret Pep Total Protein Albumin Globulin Albumin/Globulin Ratio Urine Color Urine Clarity Urine pH Ur Specific [place] Urine Protein Urine Glucose (UA) Urine Ketones Urine Blood Urine Nitrate Urine Bilirubin Urine Urobilinogen Ur Leukocyte Esterase Urine WBC (Auto) Urine RBC (Auto) Ur Squamous Epith Cells 10/11/17 10/11/17 15:32 16:24 WBC RBC Hgb Hct MCV MCH MCHC RDW Plt Count MPV Neut % (Auto) Lymph % (Auto) [place] % (Auto) Eos % (Auto) Baso % (Auto) Neut # (Auto) Lymph # (Auto) [place] # (Auto) Eos # (Auto) Baso # (Auto) PT INR APTT Sodium 130 L Potassium 4.4 Chloride 84 L Carbon Dioxide 35 H Anion Gap 16 BUN 16 Creatinine 0.8 Est GFR ( Amer) > 60 Est GFR (Non-Af Amer) > 60 POC Glucose (mg/dL) Random Glucose 156 H Calcium 9.0 Total Bilirubin 0.5 AST 33 ALT 19 Alkaline Phosphatase 68 NT-Pro-B Natriuret Pep 526 Total Protein 7.9 Albumin 4.0 Globulin 3.9 Albumin/Globulin Ratio 1.0 Urine Color Straw Urine Clarity Hazy Urine pH 7.0 Ur Specific [place] 1.008 Urine Protein Negative Urine Glucose (UA) Normal Urine Ketones Negative Urine Blood Negative Urine Nitrate Negative Urine Bilirubin Negative Urine Urobilinogen Normal Ur Leukocyte Esterase Neg Urine WBC (Auto) 1 Urine RBC (Auto) < 1 Ur Squamous Epith Cells 2 Assessment & Plan - Assessment and Plan (Free Text) Assessment: R Neck Mass Soft tissue neck CT: bulky soft tissue enlargement of the free margin of the epiglottis, epiglottic folds with circumferential extension above the level of the true cords and inferior extension to involve the true cords as well. 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 Atherosclerotic disease right carotid bifurcation and proximal internal carotid artery with significant stenosis. Consider follow up carotid doppler. NPO ENT consulted, Dr. Hull, help appreciated COPD chest xray: no active pulmonary disease Duonebs q4h PRN nasal cannula prn HTN continue home medication Carvedilol Hold Valsartan/ HCTZ due to dehydration Dehydration NS 100cc/hr with 20 meq KCl Hx Cardiac stents hold Clopidogrel for possible ENT surgery/biopsy Simvastatin NF, started Crestor 5mg PO HS Diastolic CHF Echo (03/11/17): borderline to mild concentric L ventricular hypertrophy. Left ventricular ejection fraction is within normal range. Transmitral doppler flow pattern is Grade I abnormal relaxation pattern. Aortic valve is mildly calcified. Mitral annular calcification mild. Mitral regurg is mild. Mild tricuspid regurg. Elevated Glucose accuchecks q6h f/u HgA1c Prophylaxis SCDs Protonix 40mg ivp daily <Dion Mcallister P - Last Filed: 10/12/17 06:36> Results - Vital Signs Recent Vital Signs: Last Vital Signs Temp 97.7 F 10/12/17 00:00 Pulse 102 H 10/12/17 00:00 Resp 20 10/12/17 00:00 BP 136/76 10/12/17 00:00 Pulse Ox 97 10/12/17 00:00 - Labs Result Diagrams: 10/12/17 06:16 10/11/17 15:32 Labs: Laboratory Results - last 24 hr 10/11/17 10/11/17 10/11/17 15:03 15:32 15:32 WBC 5.8 RBC 4.36 Hgb 12.5 D Hct 36.3 MCV 83.3 MCH 28.6 MCHC 34.4 RDW 15.1 H Plt Count 282 MPV 7.0 L Neut % (Auto) 70.8 Lymph % (Auto) 16.6 L [place] % (Auto) 8.6 Eos % (Auto) 2.7 Baso % (Auto) 1.3 Neut # (Auto) 4.1 Lymph # (Auto) 1.0 [place] # (Auto) 0.5 Eos # (Auto) 0.2 Baso # (Auto) 0.1 PT 10.9 INR 1.0 APTT 29 Sodium Potassium Chloride Carbon Dioxide Anion Gap BUN Creatinine Est GFR ( Amer) Est GFR (Non-Af Amer) POC Glucose (mg/dL) 154 H Random Glucose Calcium Total Bilirubin AST ALT Alkaline Phosphatase NT-Pro-B Natriuret Pep Total Protein Albumin Globulin Albumin/Globulin Ratio Urine Color Urine Clarity Urine pH Ur Specific [place] Urine Protein Urine Glucose (UA) Urine Ketones Urine Blood Urine Nitrate Urine Bilirubin Urine Urobilinogen Ur Leukocyte Esterase Urine WBC (Auto) Urine RBC (Auto) Ur Squamous Epith Cells 10/11/17 10/11/17 10/12/17 15:32 16:24 06:16 WBC 7.0 RBC 4.06 Hgb 11.7 Hct 33.6 L MCV 82.8 MCH 28.8 MCHC 34.8 RDW 15.4 H Plt Count 240 MPV 6.9 L Neut % (Auto) 67.4 Lymph % (Auto) 17.9 L [place] % (Auto) 10.6 H Eos % (Auto) 3.0 Baso % (Auto) 1.1 Neut # (Auto) 4.7 Lymph # (Auto) 1.3 [place] # (Auto) 0.7 Eos # (Auto) 0.2 Baso # (Auto) 0.1 PT INR APTT Sodium 130 L Potassium 4.4 Chloride 84 L Carbon Dioxide 35 H Anion Gap 16 BUN 16 Creatinine 0.8 Est GFR ( Amer) > 60 Est GFR (Non-Af Amer) > 60 POC Glucose (mg/dL) Random Glucose 156 H Calcium 9.0 Total Bilirubin 0.5 AST 33 ALT 19 Alkaline Phosphatase 68 NT-Pro-B Natriuret Pep 526 Total Protein 7.9 Albumin 4.0 Globulin 3.9 Albumin/Globulin Ratio 1.0 Urine Color Straw Urine Clarity Hazy Urine pH 7.0 Ur Specific [place] 1.008 Urine Protein Negative Urine Glucose (UA) Normal Urine Ketones Negative Urine Blood Negative Urine Nitrate Negative Urine Bilirubin Negative Urine Urobilinogen Normal Ur Leukocyte Esterase Neg Urine WBC (Auto) 1 Urine RBC (Auto) < 1 Ur Squamous Epith Cells 2 Attending/Attestation - Attestation I have personally seen and examined this patient.: Yes I have fully participated in the care of the patient.: Yes I have reviewed all pertinent clinical information: Yes Notes (Text): Assessment * Laryngeal lesion involving epiglottis, vocal cords, with stenosis, hoarse voice for about 2months, with metastatic diagastric LN, bigger on right side. * Clinical dehydration with hemoconcertration and slight elevated bicarb due to hctz and poor intake * h/o COPD CAD, tobacc abuse, dm not on medication, on home O2 * Patient is alert and oriented has idea the lesion is likely malignant Plan * NPO for possible laryangeal biopsy by ent * Hold asa and plavix for same * Hold hctz, * IVF * Counselled about tobacco abuse. * Gi/DVT prophylaxis.
[2017-10-12 06:22] LABS: BASO # 0.1 K/uL (0.0-0.2); BASO % 1.1 % (0.0-2.0); EOS # 0.2 K/uL (0.0-0.7); HEMOGLOBIN 11.7 g/dL (11.0-16.0); LYMPH # 1.3 K/uL (1.0-4.3); LYMPH % 17.9 % (20.0-40.0); MEAN CELL VOLUME 82.8 fL (81.0-99.0); MEAN CORPUSCULAR HEMOGLOBIN 28.8 pg (27.0-31.0); MEAN CORPUSCULAR HGB CONC 34.8 g/dL (33.0-37.0); MEAN PLATELET VOLUME 6.9 fL (7.2-11.7); MONO # 0.7 K/uL (0.0-0.8); MONO % 10.6 % (0.0-10.0); NEUT # 4.7 K/uL (1.8-7.0); NEUT % 67.4 % (50.0-75.0); RBC 4.06 Mil/uL (3.80-5.20); RED CELL DISTRIBUTION WIDTH 15.4 % (11.5-14.5)
[2017-10-12 06:57] LABS: ALBUMIN 3.3 g/dL (3.5-5.0); ALT/SGPT 22 U/L (9-52); AST/SGOT 16 U/L (14-36); BLOOD UREA NITROGEN 12 mg/dL (7-17); CALCIUM 8.4 mg/dl (8.6-10.4); GFR AFRICAN-AMERICAN > 60; GFR NON-AFRICAN AMERICAN > 60
--- NOTE | 2017-10-12 13:12 | PCM.SURG1 ---
Surgeon's Initial Post Op Note - Surgeon's Notes Surgeon: Nael Gupta MD Pathology Secretary/Transcriptionist: NONE Type of Anesthesia: Local Pre-Operative Diagnosis: Head and neck cancer Operative Findings: Complex jugular chain lymphadenopathy Post-Operative Diagnosis: Head and neck cancer Operation Performed: US guided FNA of right neck lymph node Specimen/Specimens Removed: 25 g FNA x 4 passes Estimated Blood Loss: EBL {In ML}: 0 Blood Products Given: N/A Drains Used: No Drains Post-Op Condition: Fair Date of Surgery/Procedure: 10/12/17 Time of Surgery/Procedure: 12:25
--- NOTE | 2017-10-12 14:05 | US ---
PROCEDURE: Date of procedure: 10/12/2017 Procedure: Ultrasound-guided FNA of right jugular chain lymph node, CPT 78081 Ultrasound guidance for biopsy, [address] Medications: 3cc 1% Lidocaine HISTORY: Multiple complex cervical lymphadenopathy TECHNIQUE: Following informed consent and procedure time-out, limited ultrasound patient's right neck demonstrates multiple enlarged lymph nodes which solid and complex. The right jugular chain lymph node measuring 1.4 centimeters were selected for fine aspiration. The patient's neck was prepped and draped in the usual sterile fashion. The skin was anesthetized with 1 percent lidocaine. Ultrasound-guided fine needle aspiration was then performed using a 25 gauge needle. A total of 4 passes were made into the lymph node under direct ultrasound guidance. FNA specimens were obtained and sent for routine pathology. A post biopsy ultrasound showed no hematoma IMPRESSION: Ultrasound-guided biopsy of enlarged right neck lymph node.
--- NOTE | 2017-10-12 15:29 | CP.PCM.CON ---
History of Present Illness - History of Present Illness History of Present Illness: reason for consultation: shortness of breath Patient is 72-year-old female with COPD, hypertension that is known to me from previous admission and office visit was seen yesterday in the office for hoarseness of voice and shortness of breath. On examination patient was found to have right-sided neck mass. Patient is noncompliant with medicines and continue to smoke. Also complaining of dry cough, and hoarseness of voice for the past 6-8 weeks. PMHx: COPD, HTN, CHF Psurg: cardiac stents 2010, L hernia 2010, partial thyroidectomy at age 28, appendectomy at age 15 Famhx: Dad: of [place] at 40 Sochx: smokes 1/2 pack now, smoked up to 2-3 packs per day at some points in life since age 12, denies alcohol and drugs. Patient lives with granddaughter and son. Review of Systems - Review of Systems All systems: reviewed and no additional remarkable complaints except ( hoarseness of voice, cough) Past Patient History - Infectious Disease Hx of Infectious Diseases: None - Past Medical History & Family History Past Medical History?: Yes - Past Social History Smoking Status: Light Smoker < 10 Cigarettes Daily - CARDIAC Hx Hypercholesterolemia: Yes Hx Hypertension: Yes - PULMONARY Hx Chronic Obstructive Pulmonary Disease (COPD): Yes - NEUROLOGICAL Hx Neurological Disorder: No - HEENT Hx HEENT Problems: No - RENAL Hx Chronic Kidney Disease: No - ENDOCRINE/METABOLIC Hx Endocrine Disorders: No - HEMATOLOGICAL/ONCOLOGICAL Hx Blood Disorders: No - INTEGUMENTARY Hx Dermatological Problems: No - MUSCULOSKELETAL/RHEUMATOLOGICAL Hx Musculoskeletal Disorders: No Hx Falls: No - GASTROINTESTINAL Hx Gastrointestinal Disorders: No - GENITOURINARY/GYNECOLOGICAL Hx Genitourinary Disorders: No - PSYCHIATRIC Hx Substance Use: No - SURGICAL HISTORY Hx Surgeries: Yes Hx Herniorrhaphy: Yes Hx Thyroidectomy: Yes Other/Comment: 4 stents placed for blood clots in legs. - ANESTHESIA Hx Anesthesia: Yes Hx Anesthesia Reactions: No Hx Malignant Hyperthermia: No Meds Allergies/Adverse Reactions: Allergies Allergy/AdvReac Type Severity Reaction Status Date / Time No Known Allergies Allergy Verified 03/10/17 23:35 - Medications Medications: Current Medications Albuterol/Ipratropium (Duoneb 3 Mg/0.5 Mg (3 Ml) Ud) 3 ml INH RQ4 PRN PRN Reason: Shortness of Breath Carvedilol (Coreg) 3.125 mg PO BID [facility] Last Admin: 10/12/17 09:49 Dose: 3.125 mg Pantoprazole Sodium (Protonix Inj) 40 mg IVP DAILY [facility] Last Admin: 10/12/17 09:49 Dose: 40 mg Rosuvastatin Calcium (Crestor) 5 mg PO HS [facility] Last Admin: 10/11/17 21:46 Dose: 5 mg Physical Exam - Head Exam Head Exam: ATRAUMATIC, NORMOCEPHALIC - Neck Exam Additional comments: lump on the right side of the neck - Respiratory Exam Respiratory Exam: Decreased Breath Sounds - Cardiovascular Exam Cardiovascular Exam: REGULAR RHYTHM - GI/Abdominal Exam GI & Abdominal Exam: Normal Bowel Sounds, Soft - Extremities Exam Extremities exam: Positive for: normal inspection Results - Vital Signs Recent Vital Signs: Last Vital Signs Temp 98.0 F 10/12/17 07:54 Pulse 75 10/12/17 07:54 Resp 20 10/12/17 07:54 BP 126/62 10/12/17 07:54 Pulse Ox 94 L 10/12/17 07:54 - Labs Result Diagrams: 10/12/17 06:16 10/12/17 06:16 Labs: Laboratory Results - last 24 hr 10/11/17 10/11/17 10/11/17 15:03 15:32 15:32 WBC 5.8 RBC 4.36 Hgb 12.5 D Hct 36.3 MCV 83.3 MCH 28.6 MCHC 34.4 RDW 15.1 H Plt Count 282 MPV 7.0 L Neut % (Auto) 70.8 Lymph % (Auto) 16.6 L [place] % (Auto) 8.6 Eos % (Auto) 2.7 Baso % (Auto) 1.3 Neut # (Auto) 4.1 Lymph # (Auto) 1.0 [place] # (Auto) 0.5 Eos # (Auto) 0.2 Baso # (Auto) 0.1 PT 10.9 INR 1.0 APTT 29 Sodium Potassium Chloride Carbon Dioxide Anion Gap BUN Creatinine Est GFR ( Amer) Est GFR (Non-Af Amer) POC Glucose (mg/dL) 154 H Random Glucose Hemoglobin A1c Calcium Phosphorus Magnesium Total Bilirubin AST ALT Alkaline Phosphatase NT-Pro-B Natriuret Pep Total Protein Albumin Globulin Albumin/Globulin Ratio Urine Color Urine Clarity Urine pH Ur Specific [place] Urine Protein Urine Glucose (UA) Urine Ketones Urine Blood Urine Nitrate Urine Bilirubin Urine Urobilinogen Ur Leukocyte Esterase Urine WBC (Auto) Urine RBC (Auto) Ur Squamous Epith Cells 10/11/17 10/11/17 10/12/17 15:32 16:24 06:16 WBC 7.0 RBC 4.06 Hgb 11.7 Hct 33.6 L MCV 82.8 MCH 28.8 MCHC 34.8 RDW 15.4 H Plt Count 240 MPV 6.9 L Neut % (Auto) 67.4 Lymph % (Auto) 17.9 L [place] % (Auto) 10.6 H Eos % (Auto) 3.0 Baso % (Auto) 1.1 Neut # (Auto) 4.7 Lymph # (Auto) 1.3 [place] # (Auto) 0.7 Eos # (Auto) 0.2 Baso # (Auto) 0.1 PT INR APTT Sodium 130 L Potassium 4.4 Chloride 84 L Carbon Dioxide 35 H Anion Gap 16 BUN 16 Creatinine 0.8 Est GFR ( Amer) > 60 Est GFR (Non-Af Amer) > 60 POC Glucose (mg/dL) Random Glucose 156 H Hemoglobin A1c Calcium 9.0 Phosphorus Magnesium Total Bilirubin 0.5 AST 33 ALT 19 Alkaline Phosphatase 68 NT-Pro-B Natriuret Pep 526 Total Protein 7.9 Albumin 4.0 Globulin 3.9 Albumin/Globulin Ratio 1.0 Urine Color Straw Urine Clarity Hazy Urine pH 7.0 Ur Specific [place] 1.008 Urine Protein Negative Urine Glucose (UA) Normal Urine Ketones Negative Urine Blood Negative Urine Nitrate Negative Urine Bilirubin Negative Urine Urobilinogen Normal Ur Leukocyte Esterase Neg Urine WBC (Auto) 1 Urine RBC (Auto) < 1 Ur Squamous Epith Cells 2 10/12/17 10/12/17 06:16 06:16 WBC RBC Hgb Hct MCV MCH MCHC RDW Plt Count MPV Neut % (Auto) Lymph % (Auto) [place] % (Auto) Eos % (Auto) Baso % (Auto) Neut # (Auto) Lymph # (Auto) [place] # (Auto) Eos # (Auto) Baso # (Auto) PT INR APTT Sodium 130 L Potassium 3.8 Chloride 89 L Carbon Dioxide 34 H Anion Gap 11 BUN 12 Creatinine 0.7 Est GFR ( Amer) > 60 Est GFR (Non-Af Amer) > 60 POC Glucose (mg/dL) Random Glucose 98 Hemoglobin A1c 6.6 H Calcium 8.4 L Phosphorus 3.5 Magnesium 1.8 Total Bilirubin 0.5 AST 16 ALT 22 Alkaline Phosphatase 61 NT-Pro-B Natriuret Pep Total Protein 6.5 Albumin 3.3 L Globulin 3.2 Albumin/Globulin Ratio 1.0 Urine Color Urine Clarity Urine pH Ur Specific [place] Urine Protein Urine Glucose (UA) Urine Ketones Urine Blood Urine Nitrate Urine Bilirubin Urine Urobilinogen Ur Leukocyte Esterase Urine WBC (Auto) Urine RBC (Auto) Ur Squamous Epith Cells Assessment & Plan (1) COPD (chronic obstructive pulmonary disease) Status: Acute Comment: continue nebulizer treatment. Start IV steroids (2) Mass of right side of neck Status: Acute Comment: status post biopsy of lymph node. Follow-up with pathology. IV steroids. Patient advised to stop smoking
--- NOTE | 2017-10-12 15:58 | CP.PCM.DIS ---
<Marcellus Obrien R - Last Filed: 10/12/17 15:50> Provider - Provider Date of Admission: 10/11/17 18:20 Attending physician: Dion Mcallister MD Primary care physician: PMD: Dr Eden Consults: Pulmonary: Dr Dumont ENT: Dr Hull Interventional Radiology: Dr Nael Gupta Time Spent in preparation of Discharge (in minutes): 33 Hospital Course - Lab Results Lab Results: Most Recent Lab Values WBC 7.0 K/uL (4.8-10.8) 10/12/17 06:16 RBC 4.06 Mil/uL (3.80-5.20) 10/12/17 06:16 Hgb 11.7 g/dL (11.0-16.0) 10/12/17 06:16 Hct 33.6 % (34.0-47.0) L 10/12/17 06:16 MCV 82.8 fL (81.0-99.0) 10/12/17 06:16 MCH 28.8 pg (27.0-31.0) 10/12/17 06:16 MCHC 34.8 g/dL (33.0-37.0) 10/12/17 06:16 RDW 15.4 % (11.5-14.5) H 10/12/17 06:16 Plt Count 240 K/uL (130-400) 10/12/17 06:16 MPV 6.9 fL (7.2-11.7) L 10/12/17 06:16 Neut % (Auto) 67.4 % (50.0-75.0) 10/12/17 06:16 Lymph % (Auto) 17.9 % (20.0-40.0) L 10/12/17 06:16 Jessamine % (Auto) 10.6 % (0.0-10.0) H 10/12/17 06:16 Eos % (Auto) 3.0 % (0.0-4.0) 10/12/17 06:16 Baso % (Auto) 1.1 % (0.0-2.0) 10/12/17 06:16 Neut # (Auto) 4.7 K/uL (1.8-7.0) 10/12/17 06:16 Lymph # (Auto) 1.3 K/uL (1.0-4.3) 10/12/17 06:16 Jessamine # (Auto) 0.7 K/uL (0.0-0.8) 10/12/17 06:16 Eos # (Auto) 0.2 K/uL (0.0-0.7) 10/12/17 06:16 Baso # (Auto) 0.1 K/uL (0.0-0.2) 10/12/17 06:16 PT 10.9 SECONDS (9.7-12.2) 10/11/17 15:32 INR 1.0 10/11/17 15:32 APTT 29 SECONDS (21-34) 10/11/17 15:32 Sodium 130 mmol/L (132-148) L 10/12/17 06:16 Potassium 3.8 mmol/L (3.6-5.2) 10/12/17 06:16 Chloride 89 mmol/L (98-107) L 10/12/17 06:16 Carbon Dioxide 34 mmol/L (22-30) H 10/12/17 06:16 Anion Gap 11 (10-20) 10/12/17 06:16 BUN 12 mg/dL (7-17) 10/12/17 06:16 Creatinine 0.7 mg/dL (0.7-1.2) 10/12/17 06:16 Est GFR ( Amer) > 60 10/12/17 06:16 Est GFR (Non-Af Amer) > 60 10/12/17 06:16 POC Glucose (mg/dL) 154 mg/dL (65-110) H 10/11/17 15:03 Random Glucose 98 mg/dL (65-105) 10/12/17 06:16 Hemoglobin A1c 6.6 % (4.2-6.5) H 10/12/17 06:16 Calcium 8.4 mg/dl (8.6-10.4) L 10/12/17 06:16 Phosphorus 3.5 mg/dL (2.5-4.5) 10/12/17 06:16 Magnesium 1.8 mg/dL (1.6-2.3) 10/12/17 06:16 Total Bilirubin 0.5 mg/dL (0.2-1.3) 10/12/17 06:16 AST 16 U/L (14-36) 10/12/17 06:16 ALT 22 U/L (9-52) 10/12/17 06:16 Alkaline Phosphatase 61 U/L (38-126) 10/12/17 06:16 NT-Pro-B Natriuret Pep 526 pg/mL (0-900) 10/11/17 15:32 Total Protein 6.5 g/dL (6.3-8.3) 10/12/17 06:16 Albumin 3.3 g/dL (3.5-5.0) L 10/12/17 06:16 Globulin 3.2 gm/dL (2.2-3.9) 10/12/17 06:16 Albumin/Globulin Ratio 1.0 (1.0-2.1) 10/12/17 06:16 Urine Color Straw (YELLOW) 10/11/17 16:24 Urine Clarity Hazy (Clear) 10/11/17 16:24 Urine pH 7.0 (5.0-8.0) 10/11/17 16:24 Ur Specific [place] 1.008 (1.003-1.030) 10/11/17 16:24 Urine Protein Negative mg/dL (NEGATIVE) 10/11/17 16:24 Urine Glucose (UA) Normal mg/dL (Normal) 10/11/17 16:24 Urine Ketones Negative mg/dL (NEGATIVE) 10/11/17 16:24 Urine Blood Negative (NEGATIVE) 10/11/17 16:24 Urine Nitrate Negative (NEGATIVE) 10/11/17 16:24 Urine Bilirubin Negative (NEGATIVE) 10/11/17 16:24 Urine Urobilinogen Normal mg/dL (0.2-1.0) 10/11/17 16:24 Ur Leukocyte Esterase Neg Arnie/uL (Negative) 10/11/17 16:24 Urine WBC (Auto) 1 /hpf (0-5) 10/11/17 16:24 Urine RBC (Auto) < 1 /hpf (0-3) 10/11/17 16:24 Ur Squamous Epith Cells 2 /hpf (0-5) 10/11/17 16:24 - Hospital Course Hospital Course: CC: right neck mass HPI: Patient is a 72 y/o F with pmhx of COPD, HTN, CHF who presents to the ER because her pulmonolgist Dr. Dumont sent her for a right sided neck mass he found on exam in the office today. Patient is a poor historian and information was added by her daughter and granddaughter. Patient says she noticed a neck lump a while ago (unsure of exact time), but it caused her no pain so she thought it would resolve. Dr. Dumont saw her in June and did not notice a mass at that time. Patient has been following up with Dr. Dumont for her COPD and was placed on home oxygen in June (uses 2L mostly during sleep). Patient says she has a chronic cough from smoking which she has everyday. She often coughs up clear phlegm. Today she noticed some streaks of blood in the sputum. Patient has also been having a hoarse voice for the past few months. Patient also has some difficulty swallowing solid foods and sometimes she has pain or regurgitates the food. Patient is able to drink liquids, but takes small sips. Patient has lost about 15 lbs in the last two months due to decreased appetite. Patient had lost weight about 1.5 years ago and had a bone scan done which was normal. Patient is short of breath at baseline. Patient sleeps sitting up and granddaughter says she has been sleeping more upright in the past month. Patient denies being sick recently or any sick contacts. Patient denies fevers, chest pain, palpitations, abdominal pain, nausea, vomiting, constipation, diarrhea, or urinary symptoms. PMD: Dr. Meek Canales: Dr. Dumont PMHx: COPD, HTN, CHF Psurg: cardiac stents 2010, L hernia 2010, partial thyroidectomy at age 28, appendectomy at age 15 Famhx: Dad: of [place] at 40 Sochx: smokes 1/2 pack now, smoked up to 2-3 packs per day at some points in life since age 12, denies alcohol and drugs. Patient lives with granddaughter and son. HOSPITAL COURSE: Mrs Carroll was evaluated for her right neck mass. A right neck lymph node biopsy was done by Interventional Radiologist Dr Nael Gupta. Tissue specimens were collected and sent to the pathology lab. Patient has a history of COPD. Manager Equipment Dr Dumont was consulted. She was given solumedrol 60mg IV Q8H and duoneb 3ml INH RQ4. She was also given coreg 3.125mg PO BID (for her chronic CHF ) and crestor 5mg PO HS. She was also evaluated by ENT doctor, Dr Hull. She has a follow-up appointment with Dr Hull this 10/14/17 at 1:00pm. She also has a follow-up appointment with Dr Eden on 10/19/17 at 11:00AM - at that appointment she can hopefully be told the pathology results of her biopsy. HgbA1C was 6.6. UA was normal. The latest progress note is shown below for more details regarding her management while in house: R Neck Mass Soft tissue neck CT: bulky soft tissue enlargement of the free margin of the epiglottis, epiglottic folds with circumferential extension above the level of the true cords and inferior extension to involve the true cords as well. 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 Atherosclerotic disease right carotid bifurcation and proximal internal carotid artery with significant stenosis. Consider follow up carotid doppler. NPO ENT consulted, Dr. Hull, help appreciated COPD chest xray: no active pulmonary disease Duonebs q4h PRN nasal cannula prn HTN continue home medication Carvedilol Hold Valsartan/ HCTZ due to dehydration Dehydration NS 100cc/hr with 20 meq KCl Hx Cardiac stents hold Clopidogrel for possible ENT surgery/biopsy Simvastatin NF, started Crestor 5mg PO HS Diastolic CHF Echo (03/11/17): borderline to mild concentric L ventricular hypertrophy. Left ventricular ejection fraction is within normal range. Transmitral doppler flow pattern is Grade I abnormal relaxation pattern. Aortic valve is mildly calcified. Mitral annular calcification mild. Mitral regurg is mild. Mild tricuspid regurg. Elevated Glucose accuchecks q6h f/u HgA1c Prophylaxis SCDs Protonix 40mg ivp daily Discharge Exam - Additional Findings Additional findings: - Constitutional Appears: Non-toxic, No Acute Distress - Head Exam Head Exam: ATRAUMATIC, NORMAL INSPECTION, NORMOCEPHALIC - Eye Exam Eye Exam: EOMI, Normal appearance - ENT Exam ENT Exam: Mucous Membranes Dry - Neck Exam Neck exam: Negative for: Tenderness Additional comments: r neck mass - Respiratory Exam Respiratory Exam: Rhonchi (b/l) - Cardiovascular Exam Cardiovascular Exam: REGULAR RHYTHM, RRR, +S1, +S2 - GI/Abdominal Exam GI & Abdominal Exam: Normal Bowel Sounds, Soft. absent: Tenderness - Extremities Exam Extremities exam: Positive for: normal inspection. Negative for: pedal edema, tenderness - Back Exam Back exam: NORMAL INSPECTION - Neurological Exam Neurological exam: Alert, Oriented x3 - Psychiatric Exam Psychiatric exam: Normal Affect, Normal Mood - Skin Skin Exam: Dry, Intact, Normal Color, Warm Discharge Plan - Discharge Medications Prescriptions: predniSONE [predniSONE Tab] 10 mg PO DAILY 5 Days #15 tab - Follow Up Plan Condition: STABLE Disposition: HOME/ ROUTINE Additional Instructions: Patient is medically stable for discharge. Patient will need to take the following new medication for 5 days (the prescription has been electronically sent over to [facility]) 1. Prednisone 10mg tablets Take as follows: Day 1 (10/13/17) take 5 pills -> 50mg Day 2 (10/14/17) take 4 pills -> 40mg Day 3 (10/15/17) take 3 pills -> 30mg Day 4 (10/16/17) take 2 pills -> 20mg Day 5 (10/17/17) take 1 pill -> 10mg Please resume all your other normal home medications. We have scheduled appointments with you with Ear/Neck doctor, Dr Hull and with your Primary Medical Doctor, Dr Eden. Please go see Dr Hull this 10/14/17 at 1:00PM Address: [address] [place] [address] [address] Please go see Dr Eden next 10/19/17 at 11:00AM Address: [address] [place] [address] [address] [address] The biopsy results should be ready by next . Dr Eden at that time can relay the pathology results to you. If you have difficulty breathing please go to your nearest emergency department. Referrals: Jesus Eden [Staff Provider] - Ruslan Hull MD [Staff Provider] - Clinical Quality Measures - CQM - Heart Failure Ejection Fraction: 40 % or Greater Left Ventricular Function to be assessed after discharge: No OTILIO Inhibitor Prescribed: No Contraindication/Reason for not providing: continue home ARB Beta-Chanelle Prescribed: None Contraindication/Reason for not providing: continue home Coreg AnticoagulationTherapy for Atrial Fibrillation/Atrialflutter: No Contraindication/Reason for not providing: no afib Aldosterone Antagonist Prescribed: No Contraindication/Reason for not providing: diastolic chf <Vamshi Villela - Last Filed: 10/12/17 19:28> Provider - Provider Date of Admission: 10/11/17 18:20 Attending physician: Dion Mcallister MD Time Spent in preparation of Discharge (in minutes): 40 Hospital Course - Lab Results Lab Results: Micro Results 10/11/17 15:30 Blood Blood Culture - Preliminary NO GROWTH AFTER 24 HOURS 10/11/17 15:00 Blood Blood Culture - Preliminary NO GROWTH AFTER 24 HOURS Most Recent Lab Values WBC 7.0 K/uL (4.8-10.8) 10/12/17 06:16 RBC 4.06 Mil/uL (3.80-5.20) 10/12/17 06:16 Hgb 11.7 g/dL (11.0-16.0) 10/12/17 06:16 Hct 33.6 % (34.0-47.0) L 10/12/17 06:16 MCV 82.8 fL (81.0-99.0) 10/12/17 06:16 MCH 28.8 pg (27.0-31.0) 10/12/17 06:16 MCHC 34.8 g/dL (33.0-37.0) 10/12/17 06:16 RDW 15.4 % (11.5-14.5) H 10/12/17 06:16 Plt Count 240 K/uL (130-400) 10/12/17 06:16 MPV 6.9 fL (7.2-11.7) L 10/12/17 06:16 Neut % (Auto) 67.4 % (50.0-75.0) 10/12/17 06:16 Lymph % (Auto) 17.9 % (20.0-40.0) L 10/12/17 06:16 Jessamine % (Auto) 10.6 % (0.0-10.0) H 10/12/17 06:16 Eos % (Auto) 3.0 % (0.0-4.0) 10/12/17 06:16 Baso % (Auto) 1.1 % (0.0-2.0) 10/12/17 06:16 Neut # (Auto) 4.7 K/uL (1.8-7.0) 10/12/17 06:16 Lymph # (Auto) 1.3 K/uL (1.0-4.3) 10/12/17 06:16 Jessamine # (Auto) 0.7 K/uL (0.0-0.8) 10/12/17 06:16 Eos # (Auto) 0.2 K/uL (0.0-0.7) 10/12/17 06:16 Baso # (Auto) 0.1 K/uL (0.0-0.2) 10/12/17 06:16 PT 10.9 SECONDS (9.7-12.2) 10/11/17 15:32 INR 1.0 10/11/17 15:32 APTT 29 SECONDS (21-34) 10/11/17 15:32 Sodium 130 mmol/L (132-148) L 10/12/17 06:16 Potassium 3.8 mmol/L (3.6-5.2) 10/12/17 06:16 Chloride 89 mmol/L (98-107) L 10/12/17 06:16 Carbon Dioxide 34 mmol/L (22-30) H 10/12/17 06:16 Anion Gap 11 (10-20) 10/12/17 06:16 BUN 12 mg/dL (7-17) 10/12/17 06:16 Creatinine 0.7 mg/dL (0.7-1.2) 10/12/17 06:16 Est GFR ( Amer) > 60 10/12/17 06:16 Est GFR (Non-Af Amer) > 60 10/12/17 06:16 POC Glucose (mg/dL) 154 mg/dL (65-110) H 10/11/17 15:03 Random Glucose 98 mg/dL (65-105) 10/12/17 06:16 Hemoglobin A1c 6.6 % (4.2-6.5) H 10/12/17 06:16 Calcium 8.4 mg/dl (8.6-10.4) L 10/12/17 06:16 Phosphorus 3.5 mg/dL (2.5-4.5) 10/12/17 06:16 Magnesium 1.8 mg/dL (1.6-2.3) 10/12/17 06:16 Total Bilirubin 0.5 mg/dL (0.2-1.3) 10/12/17 06:16 AST 16 U/L (14-36) 10/12/17 06:16 ALT 22 U/L (9-52) 10/12/17 06:16 Alkaline Phosphatase 61 U/L (38-126) 10/12/17 06:16 NT-Pro-B Natriuret Pep 526 pg/mL (0-900) 10/11/17 15:32 Total Protein 6.5 g/dL (6.3-8.3) 10/12/17 06:16 Albumin 3.3 g/dL (3.5-5.0) L 10/12/17 06:16 Globulin 3.2 gm/dL (2.2-3.9) 10/12/17 06:16 Albumin/Globulin Ratio 1.0 (1.0-2.1) 10/12/17 06:16 Urine Color Straw (YELLOW) 10/11/17 16:24 Urine Clarity Hazy (Clear) 10/11/17 16:24 Urine pH 7.0 (5.0-8.0) 10/11/17 16:24 Ur Specific [place] 1.008 (1.003-1.030) 10/11/17 16:24 Urine Protein Negative mg/dL (NEGATIVE) 10/11/17 16:24 Urine Glucose (UA) Normal mg/dL (Normal) 10/11/17 16:24 Urine Ketones Negative mg/dL (NEGATIVE) 10/11/17 16:24 Urine Blood Negative (NEGATIVE) 10/11/17 16:24 Urine Nitrate Negative (NEGATIVE) 10/11/17 16:24 Urine Bilirubin Negative (NEGATIVE) 10/11/17 16:24 Urine Urobilinogen Normal mg/dL (0.2-1.0) 10/11/17 16:24 Ur Leukocyte Esterase Neg Arnie/uL (Negative) 10/11/17 16:24 Urine WBC (Auto) 1 /hpf (0-5) 10/11/17 16:24 Urine RBC (Auto) < 1 /hpf (0-3) 10/11/17 16:24 Ur Squamous Epith Cells 2 /hpf (0-5) 10/11/17 16:24 Attending/Attestation - Attestation I have personally seen and examined this patient.: Yes I have fully participated in the care of the patient.: Yes I have reviewed all pertinent clinical information, including history, physical exam and plan: Yes Notes (Text): 10/12/17 19:27 Patient was seen and examined shortly after resident. Extensive conversation with patient and patient's daughter about the follow up that needs to occur with Dr. Hull and Dr. Eden and the likelihood that this was a malignancy and therefore follow up with these physicians was imperative. Vamshi Villela D.O.
[2017-10-12 16:14] VITALS: BP 125/82; PULSE 73; TEMP 97.9; O2SAT 100
--- NOTE | 2017-10-12 19:10 | CARD ---
APPROVED REPORT EKG Measurement Heart [id number] CO 160P23 [id number] <Conclusion> Sinus tachycardia with premature atrial complexes Inferior infarct, age undetermined Cannot rule out Anterior infarct, age undetermined Abnormal ECG
--- NOTE | 2017-10-13 08:29 | OP ---
DATE: 10/11/2017 PREOPERATIVE DIAGNOSIS: Hoarseness. POSTOPERATIVE DIAGNOSIS: Hoarseness. REQUESTING PHYSICIAN: Dr. Mcallister. HISTORY OF PRESENT ILLNESS: This is a 72-year-old female with a 2 months history of hoarseness and dysphagia with constant nausea in intensity. It is pharyngeal with global sensation. There is no shortness of breath, no difficulty breathing. No noisy breathing. PAST MEDICAL HISTORY: As noted in the chart by me. MEDICATIONS: As noted in the chart by me. PHYSICAL EXAMINATION: HEAD: Atraumatic, normocephalic. FACE: Good facial movements bilaterally. CONSTITUTIONAL: Well-fed, well-nourished. COMMUNICATION: Communicates well and appropriately. EXTERNAL NOSE: No masses, no lesions, no erythema, no edema. INTERNAL NOSE: Deviated septum. No masses, no lesions, no erythema, no edema. ORAL CAVITY AND OROPHARYNX: No masses, no lesions, no erythema, no edema. LIPS AND GUMS: No masses, no lesions, no erythema, no edema. NECK: Supple. THYROID: No thyromegaly. No goiter. LYMPH NODES: There is lymphadenopathy along the IJ chain on both sides. ASSESSMENT AND PLAN: CAT scan was done and reviewed by me. Review of the necrotic lymph nodes , possibly a metastasis on both sides along the IJ chain. There is also on CAT scan mass on the epiglottis extending to the a-e folds and tc; however, airway compromise is not noted on the CAT scan. The patient's airway is noted to be patent. Patient needs to follow up with me in 2 days in order to be scheduled for biopsy. Patient needs to be cleared medically first before the biopsy is performed. Ruslan Hull MD MTDRachel
== END 2017-10-12 17:42 | disposition home or self-care (01) | DRG 841 ==
LOC: C.ER 14:36 → C.3T 18:20
PROVIDERS: ADMIT Internal Medicine; ATTEND Internal Medicine
PROC: 07D13ZX Extraction of Right Neck Lymphatic, Percutaneous Approach, Diagnostic (ICD-10-PCS; principal; 2017-10-12)
PROC: BW4FZZZ Ultrasonography of Neck (ICD-10-PCS; 2017-10-12)
DX: C77.0 Secondary and unspecified malignant neoplasm of lymph nodes of head, face and neck (principal); C49.0 Malignant neoplasm of connective and soft tissue of head, face and neck; E11.65 Type 2 diabetes mellitus with hyperglycemia; R13.10 Dysphagia, unspecified; I08.1 Rheumatic disorders of both mitral and tricuspid valves; I50.30 Unspecified diastolic (congestive) heart failure; I11.0 Hypertensive heart disease with heart failure; E86.0 Dehydration; Z99.81 Dependence on supplemental oxygen; J44.9 Chronic obstructive pulmonary disease, unspecified; E89.0 Postprocedural hypothyroidism; I25.10 Atherosclerotic heart disease of native coronary artery without angina pectoris; E78.5 Hyperlipidemia, unspecified; E78.00 Pure hypercholesterolemia, unspecified; F17.210 Nicotine dependence, cigarettes, uncomplicated; Z91.19 Patient's noncompliance with other medical treatment and regimen; Z95.5 Presence of coronary angioplasty implant and graft

== ENCOUNTER 2017-11-10 11:32 | Day surgery (SDC) | payer MEDICARE ==
[2017-11-10 12:25] VITALS: BP 117/69; PULSE 81; RESP 20; TEMP 97.7; O2SAT 96
[2017-11-10] MEDS ORDERED: Lidocaine/Epinephrine 1% 1:100000 10 ML IJ ONE (12:39)
[2017-11-10] MEDS ORDERED: ceFAZolin 1 gm in NS 0 GM/0 ML BAG IVPB ONE (12:39)
[2017-11-10] MEDS ORDERED: Sodium Chloride 0.9% 20 ML IV ONE (12:45)
[2017-11-10] MEDS ORDERED: HEPARIN-NS 5,000 UNITS/500 ML 5,000 UNIT/500 ML BAG IV ONE (12:45)
[2017-11-10] MEDS ORDERED: Albuterol-Ipratrop 3 mg / 0.5 (3 ml) UD INH STA (13:23)
== END 2017-11-10 15:21 | disposition home or self-care (01) ==
LOC: C.SDS 11:32
PROVIDERS: ATTEND Surgery Surgical Critical Care
DX: C32.0 Malignant neoplasm of glottis (principal); J44.9 Chronic obstructive pulmonary disease, unspecified; F17.210 Nicotine dependence, cigarettes, uncomplicated
CPT/HCPCS: J7040 ×2

== ENCOUNTER 2017-12-09 13:52 | Inpatient (IN) | payer MEDICARE ==
[2017-12-09] MEDS ORDERED: Vancomycin 1 GM 1 GM/250 ML BAG IV STA (14:38)
[2017-12-09] MEDS ORDERED: Piperacillin/Tazobact 3.375 gm 100 ML IV STA (14:38)
--- NOTE | 2017-12-09 14:56 | C.PDOC ---
History Of Present Illness 72 y/o female, brought to ER by ambulance from [facility], complaining of cough, SOB, and greenish sputum in tracheostomy. Patient states that she was recently admitted in [facility] for pneumonia and head/ neck cancer. Patient does not have any other complaints at this time. Time Seen by Provider: 12/09/17 14:13 Chief Complaint (Nursing): Respiratory Distress History Per: Patient History/Exam Limitations: no limitations Onset/Duration Of Symptoms: Days Current Symptoms Are (Timing): Still Present Severity: Moderate Past Medical History Reviewed: Historical Data, Nursing Documentation, Vital Signs Vital Signs: Last Vital Signs Temp 97.6 F 12/09/17 13:59 Pulse 86 12/09/17 13:59 Resp 17 12/09/17 14:25 BP 128/77 12/09/17 13:59 Pulse Ox 100 12/09/17 14:56 - Medical History PMH: COPD, HTN, Hypercholesterolemia, Hyperlipidemia, Hypothyroidism, Malignancy (Vocal cords) Surgical History: Appendectomy, Endoscopy - [facility] Procedures (10/11/17) BYPASS TRACHEA TO CUTANEOUS WITH TRACH DEV, OPEN APPROACH (11/15/17) INSERTION OF FEEDING DEVICE INTO STOMACH, OPEN APPROACH (11/15/17) INTRODUCTION OF NUTRITIONAL INTO UP GI, VIA OPENING (11/15/17) RESPIRATORY VENTILATION, GREATER THAN 96 CONSECUTIVE HOURS (11/15/17) ULTRASONOGRAPHY OF NECK (10/11/17) Family History: States: No Known Family Hx - Social History Hx Tobacco Use: Yes Hx Alcohol Use: No Hx Substance Use: No - Immunization History Hx Tetanus Toxoid Vaccination: No Hx Influenza Vaccination: No Hx Pneumococcal Vaccination: No Review Of Systems Except As Marked, All Systems Reviewed And Found Negative. Constitutional: Negative for: Fever, Chills Respiratory: Positive for: Cough, Shortness of Breath, Sputum (greenish sputum in tracheostomy) Physical Exam - Physical Exam Appears: No Acute Distress, Chronically Ill Skin: Normal Color, Warm, Dry Head: Atraumatic, Normacephalic Eye(s): bilateral: Normal Inspection Ear(s): Bilateral: Normal Nose: Normal Oral Mucosa: Moist Throat: Normal, No Erythema, No Exudate Neck: Supple Chest: Symmetrical Cardiovascular: Rhythm Regular Respiratory: Decreased Breath Sounds (decreased breath sounds in right side), No Rales, No Rhonchi, No Wheezing, Other (tracheostomy with greenish sputum) Gastrointestinal/Abdominal: Normal Exam, Soft, No Tenderness Extremity: Normal ROM, No Pedal Edema Neurological/Psych: Oriented x3, Normal Speech ED Course And Treatment - Laboratory Results Result Diagrams: 12/09/17 14:53 12/09/17 14:53 ECG: Interpreted By Me ECG Rhythm: Sinus Rhythm O2 Sat by Pulse Oximetry: 100 (RA) Pulse Ox Interpretation: Normal - Radiology CXR: Interpreted by Me CXR Interpretation: Yes: Infiltrates (+RLL) Reevaluation Time: 14:55 Reassessment Condition: Improved - Physician Consult Information Outcome Of Conversation: 1500: d/w Dr. Henderson, Hospitalist well aware of this pt from recent adm. OK to admit. Medical Decision Making Medical Decision Making: RLL PNA with trach due to head/neck CA, nocomially acquired, Vanco/Zosyn Disposition Doctor Will See Patient In The: Hospital Counseled Patient/Family Regarding: Studies Performed, Diagnosis - Disposition Disposition: HOSPITALIZED Disposition Time: 14:56 Condition: FAIR - Clinical Impression Clinical Impression: Pneumonia - Scribe Statement The provider has reviewed the documentation as recorded by the Moreno Hawkins Provider Attestation: All medical record entries made by the Aminaibe were at my direction and personally dictated by me. I have reviewed the chart and agree that the record accurately reflects my personal performance of the history, physical exam, medical decision making, and the department course for this patient. I have also personally directed, reviewed, and agree with the discharge instructions and disposition.
[2017-12-09 14:57] LABS: BASO % 0.3 % (0.0-2.0); EOS % 0.2 % (0.0-4.0); HEMOGLOBIN 12.7 g/dL (11.0-16.0); LYMPH # 0.2 K/uL (1.0-4.3); LYMPH % 2.6 % (20.0-40.0); MEAN CORPUSCULAR HEMOGLOBIN 29.1 pg (27.0-31.0); MEAN CORPUSCULAR HGB CONC 34.2 g/dL (33.0-37.0); MEAN PLATELET VOLUME 7.2 fL (7.2-11.7); MONO # 0.4 K/uL (0.0-0.8); MONO % 4.9 % (0.0-10.0); NEUT # 6.8 K/uL (1.8-7.0); NRBC % 0.2 % (0.0-2.0); PLATELET COUNT 181 K/uL (130-400); RBC 4.37 Mil/uL (3.80-5.20); WHITE BLOOD COUNT 7.4 K/uL (4.8-10.8)
--- NOTE | 2017-12-09 15:07 | RAD ---
PROCEDURE: CHEST RADIOGRAPH, 1 VIEW HISTORY: SOB COMPARISON: 12/05/2017. FINDINGS: LUNGS: Progressive consolidative changes right lower lobe. Atelectasis left lower lobe accentuated by poor inspiratory effort. PLEURA: No significant interval change compared to the prior examination(s). CARDIOVASCULAR: No radiographic findings to suggest acute or significant cardiovascular disease. OSSEOUS STRUCTURES: No significant abnormalities. VISUALIZED UPPER ABDOMEN: Normal. OTHER FINDINGS: Stable, satisfactory position of tracheostomy device. IMPRESSION: Worsening right lower lobe infiltrate. New left lower lobe infiltrate/atelectasis. Limitations of the current examination: Poor inspiratory effort. Concordant results with the preliminary interpretation rendered by the emergency department physician procedure.
[2017-12-09 15:11] LABS: ALB/GLOB RATIO 1.1 (1.0-2.1); ALBUMIN 2.9 g/dL (3.5-5.0); ALT/SGPT 81 U/L (9-52); AST/SGOT 44 U/L (14-36); BLOOD UREA NITROGEN 32 mg/dL (7-17); CALCIUM 8.3 mg/dl (8.6-10.4); GFR AFRICAN-AMERICAN > 60; GFR NON-AFRICAN AMERICAN > 60
[2017-12-09 15:24] LABS: ANISOCYTOSIS SLIGHT; BANDS 1 % (0-2); EOSINOPHIL 1 % (0-4); LYMPHOCYTE 2 % (20-40); MONOCYTE 1 % (0-10); NEUTROPHIL 95 % (50-75); PLATELET ESTIMATE NORMAL (NORMAL); TOTAL CELLS COUNTED 100
[2017-12-09 15:33] LABS: B-TYPE NATRIURETIC PEPTIDE 5400 pg/mL (0-900)
[2017-12-09] MEDS ORDERED: Piperacillin/Tazobact 3.375 gm 100 ML IVPB ONE (16:01)
[2017-12-09] MEDS ORDERED: Vancomycin 1 gm/NS 200 ml 1 GM/200 ML BAG IVPB STA (16:10)
--- NOTE | 2017-12-09 17:24 | CP.PCM.HP ---
History of Present Illness - History of Present Illness History of Present Illness: This is a 72-year-old female who is known to the hospitalist service from several recent admissions. She was recently discharged from here on 12/07 to a subacute rehabilitation, however she returns today on 12/09 from [facility] since she was having green sputum , coughing from the tracheostomy. 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 Her time in the hospital was complicated with pneumonia as well as dislodgment of the tracheostomy requiring another surgery to place the tracheostomy. Because of her ongoing weakness she would require a lot of rehabilitation for her to become strong enough to then later undergo chemotherapy/radiation treatments for her malignancy. She was therefore sent to subacute rehabilitation however unfortunately she now returns. We did send her with IV antibiotics (IV Zosyn) however I reviewed the chest x-ray appears that she's having significant changes on the right lung base. The WBC is 7.4 but there is a left shift of 90% . We will get a new CT scan of the chest, She has already had blood cultures drawn, I have also ordered sputum of the tracheostomy as well. Lab work in ER show an elevated BNP as well and we will give low dose IV lasix. She does have a history of CHF. The patient is unable to speak, however communication is with nodding of her head. She was able to indicate that she was coughing. She denied fever, denied chest pain, denied stomach pain. 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 Her other past medical history includes CHF, COPD, hypertension, CAD, Past surgical histories include cardiac stenting done in 2010, partial thyroidectomy at age 28, appendectomy at age 15, left hernia repair in 2010. Family history includes her father passing away from [place] at age 40 Social history: It appears the patient was smoking at least half pack a day up until this recent September 2017. Previous documents reports she spent smoking 2-3 packs per day during her early teenage years. Denied alcohol, denied drug use. Present on Admission - Present on Admission Any Indicators Present on Admission: Yes History of DVT/PE: No History of Uncontrolled Diabetes: No Urinary Catheter: No Decubitus Ulcer Present: No Review of Systems - Constitutional Constitutional: Fatigue, Weight Loss, Weakness - EENT Nose/Mouth/Throat: As Per HPI, Neck Mass Additional comments: Green sputum from tracheosotmy - Cardiovascular Cardiovascular: absent: As Per HPI, Chest Pain - Respiratory Respiratory: Cough Past Patient History - Infectious Disease Hx of Infectious Diseases: None - Past Medical History & Family History Past Medical History?: Yes - Past Social History Smoking Status: Light Smoker < 10 Cigarettes Daily - CARDIAC Hx Hypercholesterolemia: Yes Hx Hypertension: Yes - PULMONARY Hx Chronic Obstructive Pulmonary Disease (COPD): Yes - NEUROLOGICAL Hx Neurological Disorder: No - HEENT Hx HEENT Problems: Yes Other/Comment: "HARD OF HEARING". HX: RIGHT JUGULARY LYMPH NODE BX.(10/12/17). HX: VOCAL CORD POLYP - ENDOCRINE/METABOLIC Hx Hypothyroidism: Yes - HEMATOLOGICAL/ONCOLOGICAL Hx Blood Disorders: Yes Hx Cancer: Yes (RIGHT JUGULAR LYMPH NODE BX:SQUAMOUS CELL CA) Hx Shingles: Yes - INTEGUMENTARY Hx Dermatological Problems: No - MUSCULOSKELETAL/RHEUMATOLOGICAL Hx Musculoskeletal Disorders: No Hx Falls: No - GASTROINTESTINAL Hx Gastrointestinal Disorders: No - GENITOURINARY/GYNECOLOGICAL Hx Genitourinary Disorders: No - PSYCHIATRIC Hx Substance Use: No - SURGICAL HISTORY Hx Appendectomy: Yes - ANESTHESIA Hx Anesthesia: Yes Hx Anesthesia Reactions: No Hx Malignant Hyperthermia: No Meds Allergies/Adverse Reactions: Allergies Allergy/AdvReac Type Severity Reaction Status Date / Time No Known Allergies Allergy Verified 03/10/17 23:35 Physical Exam - Constitutional Appears: No Acute Distress, Cachectic, Chronically Ill Additional comments: Patient is not in any acute distress - however she looks depressed - Head Exam Head Exam: ATRAUMATIC Additional comments: Depressed appearing - Neck Exam Additional comments: Traceostomy present. Will need to culture the sputum from trach - Respiratory Exam Respiratory Exam: Rales, Rhonchi - Cardiovascular Exam Cardiovascular Exam: REGULAR RHYTHM - GI/Abdominal Exam Additional comments: PEG tube present - Extremities Exam Extremities exam: Positive for: pedal edema - Neurological Exam Neurological exam: Alert, CN II-XII Intact, Oriented x3 - Psychiatric Exam Psychiatric exam: Depressed, Flat Affect - Skin Skin Exam: Pallor, Warm Results - Vital Signs Recent Vital Signs: Last Vital Signs Temp 98.6 F 12/09/17 17:14 Pulse 65 12/09/17 17:14 Resp 14 12/09/17 17:14 BP 102/62 12/09/17 17:14 Pulse Ox 100 12/09/17 17:14 - Labs Result Diagrams: 12/09/17 14:53 12/09/17 14:53 Labs: Laboratory Results - last 24 hr 12/09/17 12/09/17 12/09/17 13:57 14:53 14:53 WBC 7.4 RBC 4.37 Hgb 12.7 Hct 37.1 MCV 85.0 MCH 29.1 MCHC 34.2 RDW 16.0 H Plt Count 181 MPV 7.2 Neut % (Auto) 92.0 H Lymph % (Auto) 2.6 L [place] % (Auto) 4.9 Eos % (Auto) 0.2 Baso % (Auto) 0.3 Neut # (Auto) 6.8 Lymph # (Auto) 0.2 L [place] # (Auto) 0.4 Eos # (Auto) 0.0 Baso # (Auto) 0.0 Neutrophils % (Manual) 95 H Band Neutrophils % 1 Lymphocytes % (Manual) 2 L Monocytes % (Manual) 1 Eosinophils % (Manual) 1 Platelet Estimate Normal Anisocytosis (manual) Slight PT INR APTT Sodium Potassium Chloride Carbon Dioxide Anion Gap BUN Creatinine Est GFR ( Amer) Est GFR (Non-Af Amer) POC Glucose (mg/dL) 242 H Random Glucose Calcium Total Bilirubin AST ALT Alkaline Phosphatase Troponin I NT-Pro-B Natriuret Pep Total Protein Albumin Globulin Albumin/Globulin Ratio Influenza Typ A,B (EIA) Negative for flu a/b 12/09/17 12/09/17 14:53 14:53 WBC RBC Hgb Hct MCV MCH MCHC RDW Plt Count MPV Neut % (Auto) Lymph % (Auto) [place] % (Auto) Eos % (Auto) Baso % (Auto) Neut # (Auto) Lymph # (Auto) [place] # (Auto) Eos # (Auto) Baso # (Auto) Neutrophils % (Manual) Band Neutrophils % Lymphocytes % (Manual) Monocytes % (Manual) Eosinophils % (Manual) Platelet Estimate Anisocytosis (manual) PT 11.0 INR 1.0 APTT 32 Sodium 136 Potassium 4.0 Chloride 92 L Carbon Dioxide 34 H Anion Gap 14 BUN 32 H Creatinine 0.6 L Est GFR ( Amer) > 60 Est GFR (Non-Af Amer) > 60 POC Glucose (mg/dL) Random Glucose 220 H Calcium 8.3 L Total Bilirubin 0.6 AST 44 H D ALT 81 H D Alkaline Phosphatase 99 Troponin I 0.0430 NT-Pro-B Natriuret Pep 5400 H Total Protein 5.6 L Albumin 2.9 L Globulin 2.7 Albumin/Globulin Ratio 1.1 Influenza Typ A,B (EIA) Assessment & Plan - Assessment and Plan (Free Text) Assessment: Laryngeal cancer with mets 12/09: Small cell cancer History of smoking Will consult Hematology/Oncology Will need ongoing tracheostmy care as well supplemental oxygen to trach. Starting at 40% COPD/ Emphysema 12/09: As mentioned previously, history of smoking Patient placed on IV solumedrol 40 mg IV BID Also nebulizer treatments PRN Pneumonia: Hospital Aquired Pneumonia 12/09: Blood cultures collected, ordered also sputum culture from the tracheotomy She was on Zosyn IV when sent to [facility], however will change to Vancomycin and Cefepime Will need ID evaluation and pulmonary evaluation CHF with preserved ejection fraction 12/09: Lasix 20 IV BID Monitor I and Os, Daily weights Continue with Coreg and ARB if BP is ok CAD, history of stenting Conintue with Plavix 75, add on crestor and ASA for now. Abdominal aneurysm Recently measuring 4.1 x 4.4 cm Stable at this time. History of hypertension Losartan, Coreg History of diabetes mellitus For now SSI
[2017-12-09 17:56] LABS: ABG ALLEN TEST POS; ARTERIAL BLOOD GAS HCO3 31.6 mmol/L (21-28); ARTERIAL BLOOD GAS HEMOGLOBIN 11.7 g/dL (11.7-17.4); ARTERIAL BLOOD GAS O2 SAT 98.4 % (95-98); ARTERIAL BLOOD GAS PCO2 62 mm/Hg (35-45); ARTERIAL BLOOD GAS PH 7.37 (7.35-7.45); ARTERIAL BLOOD GAS PO2 89 mm/Hg (80-100); ARTERIAL BLOOD GAS TCO2 37.7 mmol/L (22-28)
[2017-12-09] MEDS: Meropenem 1 GM in Sodium Chloride 0.9% 100 ML IVPB SCH (21:19)
--- NOTE | 2017-12-09 21:36 | CT ---
EXAM: CT Chest Without Intravenous Contrast EXAM DATE/TIME: 12/09/2017 5:01 PM CLINICAL HISTORY: 72 years old, female; Condition or disease; Other: Pneumonia; Additional info: R pneumonia, HX of malignancy TECHNIQUE: Axial computed tomography images of the chest without intravenous contrast. All CT scans at this facility use one or more dose reduction techniques, viz.: automated exposure control; ma/kV adjustment per patient size (including targeted exams where dose is matched to indication; i.e. head); or iterative reconstruction technique. Coronal and sagittal reformatted images were created and reviewed. COMPARISON: There are no prior studies for comparison. FINDINGS: The Tubes, lines and devices: A tracheostomy tube is in place. Cannula tip is in the midthoracic trachea. Lungs and Pleural space: Trachea distal to the tracheostomy and main bronchi are patent. There is apical pleural-parenchymal scarring bilaterally. There is a moderately large right pleural effusion. There is a slightly smaller left pleural effusion. There is airspace disease at both lung bases right greater than left. Heart and vasculature: The heart is mildly enlarged. There is a small pericardial effusion. There are coronary artery calcifications. Calcification in the aorta and great vessels.Aorta and main pulmonary artery are normal in caliber. Mediastinum: There are no pathologically enlarged mediastinal nodes.[place] are not optimally evaluated without contrast material. The esophagus is partially distended with air. Thyroid: Thyroid is incompletely imaged. Bones/joints: Bony structures are osteopenic. Degenerative changes. Soft tissues: unremarkable Upper abdomen: There are no acute abnormalities in the visualized portion of the abdomen. IMPRESSION: Mild cardiomegaly and atherosclerotic disease; bilateral pleural effusions with basilar opacities atelectasis and/or infiltrate Additional nonemergent findings as described above.
[2017-12-09] MEDS ORDERED: Cefepime 2 GM in Sodium Chloride 0.9% 100 ML IVPB SCH (22:00)
[2017-12-09 22:56] LABS: URINE BILIRUBIN NEGATIVE (NEGATIVE); URINE BLOOD NEGATIVE (NEGATIVE); URINE CLARITY Clear (Clear); URINE COLOR Yellow (YELLOW); URINE GLUCOSE (UA) 1+ mg/dL (Normal); URINE HYALINE CAST 0-2 /lpf (0-2); URINE LEUKOCYTE ESTERASE NEG Leu/uL (Negative); URINE PROTEIN NEGATIVE (NEGATIVE)
--- NOTE | 2017-12-10 00:36 | CP.PCM.CON ---
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 In regards to her cancer, she was felt to be too frail for treatment. She was to rehab for a few weeks and undergo reassessment for treatment. Past medical, surgical, family, social history cannot be obtained. Allergies: NKA per documentation Review of systems cannot be obtained. Past Patient History - Infectious Disease Hx of Infectious Diseases: None - Past Medical History & Family History Past Medical History?: Yes - Past Social History Smoking Status: Light Smoker < 10 Cigarettes Daily - CARDIAC Hx Hypercholesterolemia: Yes Hx Hypertension: Yes - PULMONARY Hx Chronic Obstructive Pulmonary Disease (COPD): Yes - NEUROLOGICAL Hx Neurological Disorder: No - HEENT Hx HEENT Problems: Yes Other/Comment: "HARD OF HEARING". HX: RIGHT JUGULARY LYMPH NODE BX.(10/12/17). HX: VOCAL CORD POLYP - ENDOCRINE/METABOLIC Hx Hypothyroidism: Yes - HEMATOLOGICAL/ONCOLOGICAL Hx Blood Disorders: Yes Hx Cancer: Yes (RIGHT JUGULAR LYMPH NODE BX:SQUAMOUS CELL CA) Hx Shingles: Yes - INTEGUMENTARY Hx Dermatological Problems: No - MUSCULOSKELETAL/RHEUMATOLOGICAL Hx Musculoskeletal Disorders: No Hx Falls: No - GASTROINTESTINAL Hx Gastrointestinal Disorders: No - GENITOURINARY/GYNECOLOGICAL Hx Genitourinary Disorders: No - PSYCHIATRIC Hx Substance Use: No - SURGICAL HISTORY Hx Appendectomy: Yes - ANESTHESIA Hx Anesthesia: Yes Hx Anesthesia Reactions: No Hx Malignant Hyperthermia: No Meds Allergies/Adverse Reactions: Allergies Allergy/AdvReac Type Severity Reaction Status Date / Time No Known Allergies Allergy Verified 03/10/17 23:35 - Medications Medications: Current Medications Acetaminophen (Tylenol 325mg Tab) 650 mg PO Q6 PRN PRN Reason: Fever >100.4 F Albuterol/Ipratropium (Duoneb 3 Mg/0.5 Mg (3 Ml) Ud) 3 ml IH RQ4 PRN PRN Reason: Shortness of Breath [facility] Admin: 12/09/17 18:00 Dose: 667 mg Carvedilol (Coreg) 3.125 mg PO BID [facility] Clopidogrel Bisulfate (Plavix) 75 mg PO DAILY [facility] Enoxaparin Sodium (Lovenox) 40 mg SC DAILY [facility] Furosemide (Lasix) 20 mg IVP Q12 [facility] Last Admin: 12/09/17 21:24 Dose: 20 mg Vancomycin/Sodium Chloride (Vancomycin 1 Gm/Ns 200 Ml) 1 gm in 200 mls @ 133 mls/hr IVPB Q24H [facility] PRN Reason: Protocol Stop: 12/15/17 18:01 Meropenem 1 gm/ Sodium (Chloride) 100 mls @ 100 mls/hr IVPB Q8 [facility] PRN Reason: Protocol Last Admin: 12/09/17 21:19 Dose: 100 mls/hr Losartan Potassium (Cozaar) 25 mg PO DAILY [facility] Pantoprazole Sodium (Protonix Ec Tab) 40 mg PO DAILY [facility] Physical Exam - Head Exam Head Exam: ATRAUMATIC - Eye Exam Eye Exam: Normal appearance - ENT Exam ENT Exam: Mucous Membranes Dry - Respiratory Exam Respiratory Exam: NORMAL BREATHING PATTERN - Cardiovascular Exam Cardiovascular Exam: +S1, +S2 - GI/Abdominal Exam GI & Abdominal Exam: Normal Bowel Sounds - Extremities Exam Extremities exam: Positive for: normal inspection - Neurological Exam Neurological exam: Oriented x3 - Psychiatric Exam Psychiatric exam: Normal Affect, Normal Mood - Skin Skin Exam: Warm Results - Vital Signs Recent Vital Signs: Last Vital Signs Temp 97.7 F 12/09/17 22:00 Pulse 60 12/10/17 00:06 Resp 13 12/10/17 00:00 BP 111/66 12/09/17 23:45 Pulse Ox 98 12/10/17 00:00 - Labs Result Diagrams: 12/09/17 14:53 12/09/17 14:53 Labs: Laboratory Results - last 24 hr 12/09/17 12/09/17 12/09/17 13:57 14:53 14:53 WBC 7.4 RBC 4.37 Hgb 12.7 Hct 37.1 MCV 85.0 MCH 29.1 MCHC 34.2 RDW 16.0 H Plt Count 181 MPV 7.2 Neut % (Auto) 92.0 H Lymph % (Auto) 2.6 L [place] % (Auto) 4.9 Eos % (Auto) 0.2 Baso % (Auto) 0.3 Neut # (Auto) 6.8 Lymph # (Auto) 0.2 L [place] # (Auto) 0.4 Eos # (Auto) 0.0 Baso # (Auto) 0.0 Neutrophils % (Manual) 95 H Band Neutrophils % 1 Lymphocytes % (Manual) 2 L Monocytes % (Manual) 1 Eosinophils % (Manual) 1 Platelet Estimate Normal Anisocytosis (manual) Slight PT INR APTT Puncture Site pCO2 pO2 HCO3 ABG pH ABG Total CO2 ABG O2 Saturation ABG Base Excess ABG Hemoglobin ABG Carboxyhemoglobin POC ABG HHb (Measured) ABG Methemoglobin Ale[place]andro Test A-a O2 Difference Respiratory Index Hgb O2 Saturation Vent Mode Mechanical Rate FiO2 Pressure Support Sodium Potassium Chloride Carbon Dioxide Anion Gap BUN Creatinine Est GFR ( Amer) Est GFR (Non-Af Amer) POC Glucose (mg/dL) 242 H Random Glucose Calcium Total Bilirubin AST ALT Alkaline Phosphatase Troponin I NT-Pro-B Natriuret Pep Total Protein Albumin Globulin Albumin/Globulin Ratio Urine Color Urine Clarity Urine pH Ur Specific [place] Urine Protein Urine Glucose (UA) Urine Ketones Urine Blood Urine Nitrate Urine Bilirubin Urine Urobilinogen Ur Leukocyte Esterase Urine WBC (Auto) Urine RBC (Auto) Hyaline Casts Influenza Typ A,B (EIA) Negative for flu a/b 12/09/17 12/09/17 12/09/17 14:53 14:53 17:50 WBC RBC Hgb Hct MCV MCH MCHC RDW Plt Count MPV Neut % (Auto) Lymph % (Auto) [place] % (Auto) Eos % (Auto) Baso % (Auto) Neut # (Auto) Lymph # (Auto) [place] # (Auto) Eos # (Auto) Baso # (Auto) Neutrophils % (Manual) Band Neutrophils % Lymphocytes % (Manual) Monocytes % (Manual) Eosinophils % (Manual) Platelet Estimate Anisocytosis (manual) PT 11.0 INR 1.0 APTT 32 Puncture Site Lra pCO2 62 H pO2 89 HCO3 31.6 H ABG pH 7.37 ABG Total CO2 37.7 H ABG O2 Saturation 98.4 H ABG Base Excess 8.6 H ABG Hemoglobin 11.7 ABG Carboxyhemoglobin 1.7 H POC ABG HHb (Measured) 1.6 ABG Methemoglobin 1.3 Alejandro Test Pos A-a O2 Difference 119.0 Respiratory Index 1.3 Hgb O2 Saturation 95.4 Vent Mode Cpap Mechanical Rate 5 FiO2 40.0 Pressure Support 10 Sodium 136 Potassium 4.0 Chloride 92 L Carbon Dioxide 34 H Anion Gap 14 BUN 32 H Creatinine 0.6 L Est GFR ( Amer) > 60 Est GFR (Non-Af Amer) > 60 POC Glucose (mg/dL) Random Glucose 220 H Calcium 8.3 L Total Bilirubin 0.6 AST 44 H D ALT 81 H D Alkaline Phosphatase 99 Troponin I 0.0430 NT-Pro-B Natriuret Pep 5400 H Total Protein 5.6 L Albumin 2.9 L Globulin 2.7 Albumin/Globulin Ratio 1.1 Urine Color Urine Clarity Urine pH Ur Specific [place] Urine Protein Urine Glucose (UA) Urine Ketones Urine Blood Urine Nitrate Urine Bilirubin Urine Urobilinogen Ur Leukocyte Esterase Urine WBC (Auto) Urine RBC (Auto) Hyaline Casts Influenza Typ A,B (EIA) 12/09/17 22:46 WBC RBC Hgb Hct MCV MCH MCHC RDW Plt Count MPV Neut % (Auto) Lymph % (Auto) [place] % (Auto) Eos % (Auto) Baso % (Auto) Neut # (Auto) Lymph # (Auto) [place] # (Auto) Eos # (Auto) Baso # (Auto) Neutrophils % (Manual) Band Neutrophils % Lymphocytes % (Manual) Monocytes % (Manual) Eosinophils % (Manual) Platelet Estimate Anisocytosis (manual) PT INR APTT Puncture Site pCO2 pO2 HCO3 ABG pH ABG Total CO2 ABG O2 Saturation ABG Base Excess ABG Hemoglobin ABG Carboxyhemoglobin POC ABG HHb (Measured) ABG Methemoglobin [place] Test A-a O2 Difference Respiratory Index Hgb O2 Saturation Vent Mode Mechanical Rate FiO2 Pressure Support Sodium Potassium Chloride Carbon Dioxide Anion Gap BUN Creatinine Est GFR ( Amer) Est GFR (Non-Af Amer) POC Glucose (mg/dL) Random Glucose Calcium Total Bilirubin AST ALT Alkaline Phosphatase Troponin I NT-Pro-B Natriuret Pep Total Protein Albumin Globulin Albumin/Globulin Ratio Urine Color Yellow Urine Clarity Clear Urine pH 6.0 Ur Specific [place] 1.019 Urine Protein Negative Urine Glucose (UA) 1+ Urine Ketones Negative Urine Blood Negative Urine Nitrate Negative Urine Bilirubin Negative Urine Urobilinogen 4.0 H Ur Leukocyte Esterase Neg Urine WBC (Auto) 2 Urine RBC (Auto) 4 H Hyaline Casts 0-2 Influenza Typ A,B (EIA) Assessment & Plan (1) Laryngeal squamous cell carcinoma Assessment and Plan: with bilateral cervical lymph node metastasis s/p airway compromise requiring emergent tracheostomy pt is debilitated and currently not a treatment candidate Thank you for this interesting consult. Status: Acute
[2017-12-10] MEDS: Meropenem 1 GM in Sodium Chloride 0.9% 100 ML IVPB SCH ×3 (05:29→22:00)
[2017-12-10 06:15] LABS: BASO % 0.1 % (0.0-2.0); EOS # 0.1 K/uL (0.0-0.7); HEMOGLOBIN 11.6 g/dL (11.0-16.0); LYMPH # 0.8 K/uL (1.0-4.3); MEAN CELL VOLUME 84.9 fL (81.0-99.0); MEAN CORPUSCULAR HEMOGLOBIN 29.9 pg (27.0-31.0); MEAN CORPUSCULAR HGB CONC 35.2 g/dL (33.0-37.0); MEAN PLATELET VOLUME 7.8 fL (7.2-11.7); MONO # 0.6 K/uL (0.0-0.8); MONO % 10.2 % (0.0-10.0); NEUT % 73.7 % (50.0-75.0); NRBC % 0.1 % (0.0-2.0); RBC 3.87 Mil/uL (3.80-5.20); RED CELL DISTRIBUTION WIDTH 15.6 % (11.5-14.5); WHITE BLOOD COUNT 5.4 K/uL (4.8-10.8)
[2017-12-10 06:48] LABS: ALBUMIN 2.6 g/dL (3.5-5.0); ALT/SGPT 73 U/L (9-52); AST/SGOT 39 U/L (14-36); BLOOD UREA NITROGEN 34 mg/dL (7-17); CALCIUM 8.6 mg/dl (8.6-10.4); GFR AFRICAN-AMERICAN > 60; GFR NON-AFRICAN AMERICAN > 60
[2017-12-10] MEDS ORDERED: Dextrose 50% SYRINGE Inj (50 ml) IV PRN (07:00)
[2017-12-10] MEDS ORDERED: Glucagon Recombinant 1 mg Inj IM PRN (07:00)
--- NOTE | 2017-12-10 07:05 | CP.PCM.PN ---
<Rosalba Menendez - Last Filed: 12/10/17 13:25> Subjective - Date & Time of Evaluation Date of Evaluation: 12/10/17 Time of Evaluation: 07:03 - Subjective Subjective: Progress Note Patient seen and examined at bedside. No acute events overnight. Patient indicates that she's still coughing, but feels better than when she was discharged last time. Patient does not appear to be in any respiratory distress on CPAP. Patient has no complaints at this time. Patient denies fever, chills, nausea. Patient had a BM this morning per nursing staff. Objective - Vital Signs/Intake and Output Vital Signs (last 24 hours): Temp Pulse Resp BP Pulse Ox 98 F 90 16 117/65 96 12/10/17 06:00 12/10/17 04:00 12/10/17 04:00 12/10/17 03:59 12/10/17 04:00 Intake and Output: 12/10/17 12/10/17 06:59 18:59 Intake Total 890 Output Total 3900 Balance -3010 - Medications Medications: Current Medications Acetaminophen (Tylenol 325mg Tab) 650 mg PO Q6 PRN PRN Reason: Fever >100.4 F Albuterol/Ipratropium (Duoneb 3 Mg/0.5 Mg (3 Ml) Ud) 3 ml IH RQ4 PRN PRN Reason: Shortness of Breath Calcium Acetate (Phoslo) 667 mg PO BIDCC [facility] Last Admin: 12/09/17 18:00 Dose: 667 mg Carvedilol (Coreg) 3.125 mg PO BID [facility] Clopidogrel Bisulfate (Plavix) 75 mg PO DAILY [facility] Dextrose (Dextrose 50% Inj) 0 ml IV STAT PRN; Protocol PRN Reason: Hypoglycemia Protocol Dextrose (Glutose 15) 0 gm PO ONCE PRN; Protocol PRN Reason: Hypoglycemia Protocol Enoxaparin Sodium (Lovenox) 40 mg SC DAILY [facility] Furosemide (Lasix) 20 mg IVP Q12 [facility] Last Admin: 12/09/17 21:24 Dose: 20 mg Glucagon (Glucagen Diagnostic Kit) 0 mg IM STAT PRN; Protocol PRN Reason: Hypoglycemia Protocol Vancomycin/Sodium Chloride (Vancomycin 1 Gm/Ns 200 Ml) 1 gm in 200 mls @ 133 mls/hr IVPB Q24H [facility] PRN Reason: Protocol Stop: 05/23/18 18:01 Meropenem 1 gm/ Sodium (Chloride) 100 mls @ 100 mls/hr IVPB Q8 [facility] PRN Reason: Protocol Last Admin: 12/10/17 05:29 Dose: 100 mls/hr Dextrose (Dextrose 5% In Water 1000 Ml) 1,000 mls @ 0 mls/hr IV .Q0M PRN; Protocol; Per Protocol PRN Reason: Hypoglycemia Protocol Losartan Potassium (Cozaar) 25 mg PO DAILY [facility] Pantoprazole Sodium (Protonix Ec Tab) 40 mg PO DAILY [facility] - Labs Labs: 12/10/17 05:59 12/10/17 06:02 PT 11.0 SECONDS (9.7-12.2) 12/09/17 14:53 INR 1.0 12/09/17 14:53 APTT 32 SECONDS (21-34) 12/09/17 14:53 - Additional Findings Additional findings: - Constitutional Appears: Non-toxic, No Acute Distress - Head Exam Head Exam: NORMAL INSPECTION, NORMOCEPHALIC - Eye Exam Eye Exam: EOMI, Normal appearance - ENT Exam ENT Exam: Mucous Membranes Moist Additional comments: tracheostomy in place. Trach collar on at 30% - Neck Exam Neck Exam: Full ROM, Normal Inspection. absent: Tenderness, Thyromegaly - Respiratory Exam Respiratory Exam: rales, NORMAL BREATHING PATTERN. absent: Accessory Muscle Use - Cardiovascular Exam Cardiovascular Exam: REGULAR RHYTHM, +S1, +S2 - GI/Abdominal Exam GI & Abdominal Exam: Soft, Normal Bowel Sounds. absent: Tenderness - Extremities Exam Extremities Exam: Full ROM, Normal Inspection. 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 Alamo ID Consult: Dr. Alamo Pulm Consult: Dr. Dumont CHF with preserved ejection fraction 12/09: Lasix 20 IV BID Monitor I and Os, Daily weights Continue with Coreg and ARB if BP is ok CAD, history of stenting Continue with Plavix 75 Crestor ASA added Abdominal aneurysm Recently measuring 4.1 x 4.4 cm Stable at this time. History of hypertension Losartan Coreg History of diabetes mellitus Insulin SS Accucheck Q6H Hypoglycemic protocol s/p G tube insertion Tube feeds currently at 40cc/hr monitor for BM Dr. Beatriz Navarrete Eng, DO PGY1 <Chavez Henderson H - Last Filed: 12/10/17 13:50> Objective - Vital Signs/Intake and Output Vital Signs (last 24 hours): Temp Pulse Resp BP Pulse Ox 97.6 F 88 19 116/56 L 97 12/10/17 12:00 12/10/17 12:00 12/10/17 12:00 12/10/17 11:59 12/10/17 12:00 Intake and Output: 12/10/17 12/10/17 06:59 18:59 Intake Total 890 80 Output Total 3900 150 Balance -3010 -70 - Medications Medications: Current Medications Acetaminophen (Tylenol 325mg Tab) 650 mg PO Q6 PRN PRN Reason: Fever >100.4 F Albuterol/Ipratropium (Duoneb 3 Mg/0.5 Mg (3 Ml) Ud) 3 ml IH RQ4 PRN PRN Reason: Shortness of Breath Calcium Acetate (Phoslo) 667 mg PO BIDCC [facility] Last Admin: 12/10/17 09:01 Dose: 667 mg Carvedilol (Coreg) 3.125 mg PO BID [facility] Last Admin: 12/10/17 09:01 Dose: 3.125 mg Clopidogrel Bisulfate (Plavix) 75 mg PO DAILY [facility] Last Admin: 12/10/17 09:01 Dose: 75 mg Dextrose (Dextrose 50% Inj) 0 ml IV STAT PRN; Protocol PRN Reason: Hypoglycemia Protocol Dextrose (Glutose 15) 15 gm PO ONCE PRN; Protocol PRN Reason: Hypoglycemia Protocol Enoxaparin Sodium (Lovenox) 40 mg SC DAILY [facility] Last Admin: 12/10/17 09:01 Dose: 40 mg Furosemide (Lasix) 20 mg IVP Q12 [facility] Last Admin: 12/10/17 09:01 Dose: 20 mg Glucagon (Glucagen Diagnostic Kit) 1 mg IM STAT PRN; Protocol PRN Reason: Hypoglycemia Protocol Vancomycin/Sodium Chloride (Vancomycin 1 Gm/Ns 200 Ml) 1 gm in 200 mls @ 133 mls/hr IVPB Q24H [facility] PRN Reason: Protocol Stop: 12/15/17 18:01 Meropenem 1 gm/ Sodium (Chloride) 100 mls @ 100 mls/hr IVPB Q8 [facility] PRN Reason: Protocol Last Admin: 12/10/17 05:29 Dose: 100 mls/hr Dextrose (Dextrose 5% In Water 1000 Ml) 1,000 mls @ 0 mls/hr IV .Q0M PRN; Protocol; Per Protocol PRN Reason: Hypoglycemia Protocol Losartan Potassium (Cozaar) 25 mg PO DAILY [facility] Last Admin: 12/10/17 09:01 Dose: 25 mg Nystatin (Mycostatin Cream) 4 ea TOP TID [facility] Pantoprazole Sodium (Protonix Ec Tab) 40 mg PO DAILY [facility] Last Admin: 12/10/17 09:01 Dose: 40 mg - Labs Labs: 12/10/17 05:59 12/10/17 06:02 PT 11.0 SECONDS (9.7-12.2) 12/09/17 14:53 INR 1.0 12/09/17 14:53 APTT 32 SECONDS (21-34) 12/09/17 14:53 Attending/Attestation - Attestation I have personally seen and examined this patient.: Yes I have fully participated in the care of the patient.: Yes I have reviewed all pertinent clinical information, including history, physical exam and plan: Yes Notes (Text): 12/10/17 13:47 Medical attending: Patient was seen and examined by me. Agree with the above note by the resident The patient's family member was at bedside and we discussed a long time. Patient had CT scan yesterday - there is a pleural effusion, it is not large is size but will monitor with C-XRAY and also I and Os. Patient remains on IV abx at this time for the pneumonia. The cultures are pending at this time. Chavez Henderson
[2017-12-10] MEDS: Enoxaparin 40 mg Syringe SC SCH (09:01)
[2017-12-10] MEDS: Pantoprazole 40 mg EC Tab PO SCH (09:01)
--- NOTE | 2017-12-10 11:08 | CP.PCM.PN ---
<Lauri Jones - Last Filed: 12/10/17 14:14> Subjective - Date & Time of Evaluation Date of Evaluation: 12/10/17 Time of Evaluation: 13:45 - Subjective Subjective: Hematology- Oncology Progress Note- Dr. Dunlap's service Patient seen and examined bedside. Patient not able to verbalize any complaints at this time. Patient was able to shake and nod her head to a review of systems. Objective - Vital Signs/Intake and Output Vital Signs (last 24 hours): Temp Pulse Resp BP Pulse Ox 98.4 F 90 15 101/53 L 100 12/10/17 08:00 12/10/17 08:26 12/10/17 08:00 12/10/17 09:01 12/10/17 08:00 Intake and Output: 12/10/17 12/10/17 06:59 18:59 Intake Total 890 80 Output Total 3900 150 Balance -3010 -70 - Medications Medications: Current Medications Acetaminophen (Tylenol 325mg Tab) 650 mg PO Q6 PRN PRN Reason: Fever >100.4 F Albuterol/Ipratropium (Duoneb 3 Mg/0.5 Mg (3 Ml) Ud) 3 ml IH RQ4 PRN PRN Reason: Shortness of Breath Calcium Acetate (Phoslo) 667 mg PO BIDCC [facility] Last Admin: 12/10/17 09:01 Dose: 667 mg Carvedilol (Coreg) 3.125 mg PO BID [facility] Last Admin: 12/10/17 09:01 Dose: 3.125 mg Clopidogrel Bisulfate (Plavix) 75 mg PO DAILY [facility] Last Admin: 12/10/17 09:01 Dose: 75 mg Dextrose (Dextrose 50% Inj) 0 ml IV STAT PRN; Protocol PRN Reason: Hypoglycemia Protocol Dextrose (Glutose 15) 15 gm PO ONCE PRN; Protocol PRN Reason: Hypoglycemia Protocol Enoxaparin Sodium (Lovenox) 40 mg SC DAILY [facility] Last Admin: 12/10/17 09:01 Dose: 40 mg Furosemide (Lasix) 20 mg IVP Q12 [facility] Last Admin: 12/10/17 09:01 Dose: 20 mg Glucagon (Glucagen Diagnostic Kit) 1 mg IM STAT PRN; Protocol PRN Reason: Hypoglycemia Protocol Vancomycin/Sodium Chloride (Vancomycin 1 Gm/Ns 200 Ml) 1 gm in 200 mls @ 133 mls/hr IVPB Q24H [facility] PRN Reason: Protocol Stop: 12/15/17 18:01 Meropenem 1 gm/ Sodium (Chloride) 100 mls @ 100 mls/hr IVPB Q8 [facility] PRN Reason: Protocol Last Admin: 12/10/17 05:29 Dose: 100 mls/hr Dextrose (Dextrose 5% In Water 1000 Ml) 1,000 mls @ 0 mls/hr IV .Q0M PRN; Protocol; Per Protocol PRN Reason: Hypoglycemia Protocol Losartan Potassium (Cozaar) 25 mg PO DAILY [facility] Last Admin: 12/10/17 09:01 Dose: 25 mg Pantoprazole Sodium (Protonix Ec Tab) 40 mg PO DAILY [facility] Last Admin: 12/10/17 09:01 Dose: 40 mg - Labs Labs: 12/10/17 05:59 12/10/17 06:02 PT 11.0 SECONDS (9.7-12.2) 12/09/17 14:53 INR 1.0 12/09/17 14:53 APTT 32 SECONDS (21-34) 12/09/17 14:53 - Constitutional Appears: Non-toxic - Head Exam Head Exam: ATRAUMATIC, NORMAL INSPECTION, NORMOCEPHALIC - Eye Exam Eye Exam: EOMI, Normal appearance - ENT Exam ENT Exam: Mucous Membranes Moist Additional comments: trach in place- minimal secretions - Neck Exam Neck Exam: Full ROM - Respiratory Exam Respiratory Exam: Rhonchi, Wheezes. absent: NORMAL BREATHING PATTERN - Cardiovascular Exam Cardiovascular Exam: +S1, +S2 - GI/Abdominal Exam GI & Abdominal Exam: Soft - Neurological Exam Neurological Exam: Alert, Awake, Oriented x3 - Psychiatric Exam Psychiatric exam: Flat Affect - Skin Skin Exam: Dry, Warm Assessment and Plan (1) Laryngeal squamous cell carcinoma Assessment & Plan: B/L cervical lymph node metastasis Pt s/p emergent tracheostomy on 11/15 secondary to respiratory distress compromising the airway Trach care PRN Patient is very weak and consequently not an ideal candidate for treatment. Status: Acute (2) Prophylactic measure Assessment & Plan: Lovenox SC daily Protonix daily Status: Acute <Juan Carlos Dunlap - Last Filed: 12/10/17 23:07> Objective - Vital Signs/Intake and Output Vital Signs (last 24 hours): Temp Pulse Resp BP Pulse Ox 98.6 F 80 14 116/63 99 12/10/17 20:00 12/10/17 20:00 12/10/17 20:00 12/10/17 22:25 12/10/17 20:00 Intake and Output: 12/10/17 12/11/17 18:59 06:59 Intake Total 740 Output Total 1000 Balance -260 - Medications Medications: Current Medications Acetaminophen (Tylenol 325mg Tab) 650 mg PO Q6 PRN PRN Reason: Fever >100.4 F Albuterol/Ipratropium (Duoneb 3 Mg/0.5 Mg (3 Ml) Ud) 3 ml IH RQ4 PRN PRN Reason: Shortness of Breath Calcium Acetate (Phoslo) 667 mg PO BIDCC [facility] Last Admin: 12/10/17 17:29 Dose: 667 mg Carvedilol (Coreg) 3.125 mg PO BID [facility] Last Admin: 12/10/17 17:29 Dose: 3.125 mg Clopidogrel Bisulfate (Plavix) 75 mg PO DAILY [facility] Last Admin: 12/10/17 09:01 Dose: 75 mg Dextrose (Dextrose 50% Inj) 0 ml IV STAT PRN; Protocol PRN Reason: Hypoglycemia Protocol Dextrose (Glutose 15) 15 gm PO ONCE PRN; Protocol PRN Reason: Hypoglycemia Protocol Enoxaparin Sodium (Lovenox) 40 mg SC DAILY [facility] Last Admin: 12/10/17 09:01 Dose: 40 mg Furosemide (Lasix) 20 mg IVP Q12 [facility] Last Admin: 12/10/17 22:25 Dose: 20 mg Glucagon (Glucagen Diagnostic Kit) 1 mg IM STAT PRN; Protocol PRN Reason: Hypoglycemia Protocol Vancomycin/Sodium Chloride (Vancomycin 1 Gm/Ns 200 Ml) 1 gm in 200 mls @ 133 mls/hr IVPB Q24H [facility] PRN Reason: Protocol Stop: 12/15/17 18:01 Last Admin: 12/10/17 17:34 Dose: 133 mls/hr Meropenem 1 gm/ Sodium (Chloride) 100 mls @ 100 mls/hr IVPB Q8 [facility] PRN Reason: Protocol Last Admin: 12/10/17 22:00 Dose: 100 mls/hr Dextrose (Dextrose 5% In Water 1000 Ml) 1,000 mls @ 0 mls/hr IV .Q0M PRN; Protocol; Per Protocol PRN Reason: Hypoglycemia Protocol Losartan Potassium (Cozaar) 25 mg PO DAILY [facility] Last Admin: 12/10/17 09:01 Dose: 25 mg Nystatin (Mycostatin Cream) 0 ea TOP TID [facility] Last Admin: 12/10/17 17:29 Dose: 1 applic Pantoprazole Sodium (Protonix Ec Tab) 40 mg PO DAILY [facility] Last Admin: 12/10/17 09:01 Dose: 40 mg - Labs Labs: 12/10/17 05:59 12/10/17 06:02 PT 11.0 SECONDS (9.7-12.2) 12/09/17 14:53 INR 1.0 12/09/17 14:53 APTT 32 SECONDS (21-34) 12/09/17 14:53 Assessment and Plan (1) Laryngeal squamous cell carcinoma Status: Acute - Assessment and Plan (Free Text) Assessment: Pt seen and examined, agree with residents note.
--- NOTE | 2017-12-10 15:19 | CP.PCM.CON ---
History of Present Illness - History of Present Illness History of Present Illness: dictated Past Patient History - Infectious Disease Hx of Infectious Diseases: None - Past Medical History & Family History Past Medical History?: Yes - Past Social History Smoking Status: Light Smoker < 10 Cigarettes Daily - CARDIAC Hx Hypercholesterolemia: Yes Hx Hypertension: Yes - PULMONARY Hx Chronic Obstructive Pulmonary Disease (COPD): Yes - NEUROLOGICAL Hx Neurological Disorder: No - HEENT Hx HEENT Problems: Yes Other/Comment: "HARD OF HEARING". HX: RIGHT JUGULARY LYMPH NODE BX.(10/12/17). HX: VOCAL CORD POLYP - ENDOCRINE/METABOLIC Hx Hypothyroidism: Yes - HEMATOLOGICAL/ONCOLOGICAL Hx Blood Disorders: Yes Hx Cancer: Yes (RIGHT JUGULAR LYMPH NODE BX:SQUAMOUS CELL CA) Hx Shingles: Yes - INTEGUMENTARY Hx Dermatological Problems: No - MUSCULOSKELETAL/RHEUMATOLOGICAL Hx Musculoskeletal Disorders: No Hx Falls: No - GASTROINTESTINAL Hx Gastrointestinal Disorders: No - GENITOURINARY/GYNECOLOGICAL Hx Genitourinary Disorders: No - PSYCHIATRIC Hx Substance Use: No - SURGICAL HISTORY Hx Appendectomy: Yes - ANESTHESIA Hx Anesthesia: Yes Hx Anesthesia Reactions: No Hx Malignant Hyperthermia: No Meds Allergies/Adverse Reactions: Allergies Allergy/AdvReac Type Severity Reaction Status Date / Time No Known Allergies Allergy Verified 03/10/17 23:35 - Medications Medications: Current Medications Acetaminophen (Tylenol 325mg Tab) 650 mg PO Q6 PRN PRN Reason: Fever >100.4 F Albuterol/Ipratropium (Duoneb 3 Mg/0.5 Mg (3 Ml) Ud) 3 ml IH RQ4 PRN PRN Reason: Shortness of Breath Calcium Acetate (Phoslo) 667 mg PO BIDCC [facility] Last Admin: 12/10/17 09:01 Dose: 667 mg Carvedilol (Coreg) 3.125 mg PO BID [facility] Last Admin: 12/10/17 09:01 Dose: 3.125 mg Clopidogrel Bisulfate (Plavix) 75 mg PO DAILY [facility] Last Admin: 12/10/17 09:01 Dose: 75 mg Dextrose (Dextrose 50% Inj) 0 ml IV STAT PRN; Protocol PRN Reason: Hypoglycemia Protocol Dextrose (Glutose 15) 15 gm PO ONCE PRN; Protocol PRN Reason: Hypoglycemia Protocol Enoxaparin Sodium (Lovenox) 40 mg SC DAILY [facility] Last Admin: 12/10/17 09:01 Dose: 40 mg Furosemide (Lasix) 20 mg IVP Q12 [facility] Last Admin: 12/10/17 09:01 Dose: 20 mg Glucagon (Glucagen Diagnostic Kit) 1 mg IM STAT PRN; Protocol PRN Reason: Hypoglycemia Protocol Vancomycin/Sodium Chloride (Vancomycin 1 Gm/Ns 200 Ml) 1 gm in 200 mls @ 133 mls/hr IVPB Q24H [facility] PRN Reason: Protocol Stop: 12/15/17 18:01 Meropenem 1 gm/ Sodium (Chloride) 100 mls @ 100 mls/hr IVPB Q8 [facility] PRN Reason: Protocol Last Admin: 12/10/17 13:58 Dose: 100 mls/hr Dextrose (Dextrose 5% In Water 1000 Ml) 1,000 mls @ 0 mls/hr IV .Q0M PRN; Protocol; Per Protocol PRN Reason: Hypoglycemia Protocol Losartan Potassium (Cozaar) 25 mg PO DAILY [facility] Last Admin: 12/10/17 09:01 Dose: 25 mg Nystatin (Mycostatin Cream) 0 ea TOP TID [facility] Pantoprazole Sodium (Protonix Ec Tab) 40 mg PO DAILY [facility] Last Admin: 12/10/17 09:01 Dose: 40 mg Results - Vital Signs Recent Vital Signs: Last Vital Signs Temp 97.6 F 12/10/17 12:00 Pulse 88 12/10/17 12:00 Resp 19 12/10/17 12:00 BP 116/56 L 12/10/17 11:59 Pulse Ox 97 12/10/17 12:00 - Labs Result Diagrams: 12/10/17 05:59 12/10/17 06:02 Labs: Laboratory Results - last 24 hr 12/09/17 12/09/17 12/09/17 14:53 14:53 17:50 WBC RBC Hgb Hct MCV MCH MCHC RDW Plt Count MPV Neut % (Auto) Lymph % (Auto) [place] % (Auto) Eos % (Auto) Baso % (Auto) Neut # (Auto) Lymph # (Auto) [place] # (Auto) Eos # (Auto) Baso # (Auto) Neutrophils % (Manual) 95 H Band Neutrophils % 1 Lymphocytes % (Manual) 2 L Monocytes % (Manual) 1 Eosinophils % (Manual) 1 Platelet Estimate Normal Anisocytosis (manual) Slight Puncture Site Lra pCO2 62 H pO2 89 HCO3 31.6 H ABG pH 7.37 ABG Total CO2 37.7 H ABG O2 Saturation 98.4 H ABG Base Excess 8.6 H ABG Hemoglobin 11.7 ABG Carboxyhemoglobin 1.7 H POC ABG HHb (Measured) 1.6 ABG Methemoglobin 1.3 Alejandro Test Pos A-a O2 Difference 119.0 Respiratory Index 1.3 Hgb O2 Saturation 95.4 Vent Mode Cpap Mechanical Rate 5 FiO2 40.0 Pressure Support 10 Sodium Potassium Chloride Carbon Dioxide Anion Gap BUN Creatinine Est GFR ( Amer) Est GFR (Non-Af Amer) POC Glucose (mg/dL) Random Glucose Calcium Total Bilirubin AST ALT Alkaline Phosphatase Troponin I 0.0430 NT-Pro-B Natriuret Pep 5400 H Total Protein Albumin Globulin Albumin/Globulin Ratio TSH 3rd Generation Urine Color Urine Clarity Urine pH Ur Specific [place] Urine Protein Urine Glucose (UA) Urine Ketones Urine Blood Urine Nitrate Urine Bilirubin Urine Urobilinogen Ur Leukocyte Esterase Urine WBC (Auto) Urine RBC (Auto) Hyaline Casts 12/09/17 12/10/17 12/10/17 22:46 00:57 04:59 WBC RBC Hgb Hct MCV MCH MCHC RDW Plt Count MPV Neut % (Auto) Lymph % (Auto) [place] % (Auto) Eos % (Auto) Baso % (Auto) Neut # (Auto) Lymph # (Auto) [place] # (Auto) Eos # (Auto) Baso # (Auto) Neutrophils % (Manual) Band Neutrophils % Lymphocytes % (Manual) Monocytes % (Manual) Eosinophils % (Manual) Platelet Estimate Anisocytosis (manual) Puncture Site pCO2 pO2 HCO3 ABG pH ABG Total CO2 ABG O2 Saturation ABG Base Excess ABG Hemoglobin ABG Carboxyhemoglobin POC ABG HHb (Measured) ABG Methemoglobin Alejandro Test A-a O2 Difference Respiratory Index Hgb O2 Saturation Vent Mode Mechanical Rate FiO2 Pressure Support Sodium Potassium Chloride Carbon Dioxide Anion Gap BUN Creatinine Est GFR ( Amer) Est GFR (Non-Af Amer) POC Glucose (mg/dL) 138 H 136 H Random Glucose Calcium Total Bilirubin AST ALT Alkaline Phosphatase Troponin I NT-Pro-B Natriuret Pep Total Protein Albumin Globulin Albumin/Globulin Ratio TSH 3rd Generation Urine Color Yellow Urine Clarity Clear Urine pH 6.0 Ur Specific [place] 1.019 Urine Protein Negative Urine Glucose (UA) 1+ Urine Ketones Negative Urine Blood Negative Urine Nitrate Negative Urine Bilirubin Negative Urine Urobilinogen 4.0 H Ur Leukocyte Esterase Neg Urine WBC (Auto) 2 Urine RBC (Auto) 4 H Hyaline Casts 0-2 12/10/17 12/10/17 12/10/17 05:59 06:02 11:13 WBC 5.4 RBC 3.87 Hgb 11.6 Hct 32.8 L MCV 84.9 MCH 29.9 MCHC 35.2 RDW 15.6 H Plt Count 177 MPV 7.8 Neut % (Auto) 73.7 Lymph % (Auto) 15.0 L [place] % (Auto) 10.2 H Eos % (Auto) 1.0 Baso % (Auto) 0.1 Neut # (Auto) 4.0 Lymph # (Auto) 0.8 L [place] # (Auto) 0.6 Eos # (Auto) 0.1 Baso # (Auto) 0.0 Neutrophils % (Manual) Band Neutrophils % Lymphocytes % (Manual) Monocytes % (Manual) Eosinophils % (Manual) Platelet Estimate Anisocytosis (manual) Puncture Site pCO2 pO2 HCO3 ABG pH ABG Total CO2 ABG O2 Saturation ABG Base Excess ABG Hemoglobin ABG Carboxyhemoglobin POC ABG HHb (Measured) ABG Methemoglobin Alejandro Test A-a O2 Difference Respiratory Index Hgb O2 Saturation Vent Mode Mechanical Rate FiO2 Pressure Support Sodium 134 Potassium 3.9 Chloride 92 L Carbon Dioxide 38 H Anion Gap 9 L BUN 34 H Creatinine 0.5 L Est GFR ( Amer) > 60 Est GFR (Non-Af Amer) > 60 POC Glucose (mg/dL) 207 H Random Glucose 118 H Calcium 8.6 Total Bilirubin 0.6 AST 39 H ALT 73 H Alkaline Phosphatase 64 Troponin I NT-Pro-B Natriuret Pep Total Protein 5.2 L Albumin 2.6 L Globulin 2.6 Albumin/Globulin Ratio 1.0 TSH 3rd Generation 3.22 Urine Color Urine Clarity Urine pH Ur Specific [place] Urine Protein Urine Glucose (UA) Urine Ketones Urine Blood Urine Nitrate Urine Bilirubin Urine Urobilinogen Ur Leukocyte Esterase Urine WBC (Auto) Urine RBC (Auto) Hyaline Casts
--- NOTE | 2017-12-10 16:22 | CP.PCM.CON ---
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 Patient placed on ventilator support and started on IV antibiotics Past medical, surgical, family, social history cannot be obtained. Review of Systems - Review of Systems Systems not reviewed;Unavailable: Other (status post tracheostomy on ventilator support) Past Patient History - Infectious Disease Hx of Infectious Diseases: None - Past Medical History & Family History Past Medical History?: Yes - Past Social History Smoking Status: Light Smoker < 10 Cigarettes Daily - CARDIAC Hx Hypercholesterolemia: Yes Hx Hypertension: Yes - PULMONARY Hx Chronic Obstructive Pulmonary Disease (COPD): Yes - NEUROLOGICAL Hx Neurological Disorder: No - HEENT Hx HEENT Problems: Yes Other/Comment: "HARD OF HEARING". HX: RIGHT JUGULARY LYMPH NODE BX.(10/12/17). HX: VOCAL CORD POLYP - ENDOCRINE/METABOLIC Hx Hypothyroidism: Yes - HEMATOLOGICAL/ONCOLOGICAL Hx Blood Disorders: Yes Hx Cancer: Yes (RIGHT JUGULAR LYMPH NODE BX:SQUAMOUS CELL CA) Hx Shingles: Yes - INTEGUMENTARY Hx Dermatological Problems: No - MUSCULOSKELETAL/RHEUMATOLOGICAL Hx Musculoskeletal Disorders: No Hx Falls: No - GASTROINTESTINAL Hx Gastrointestinal Disorders: No - GENITOURINARY/GYNECOLOGICAL Hx Genitourinary Disorders: No - PSYCHIATRIC Hx Substance Use: No - SURGICAL HISTORY Hx Appendectomy: Yes - ANESTHESIA Hx Anesthesia: Yes Hx Anesthesia Reactions: No Hx Malignant Hyperthermia: No Meds Allergies/Adverse Reactions: Allergies Allergy/AdvReac Type Severity Reaction Status Date / Time No Known Allergies Allergy Verified 03/10/17 23:35 - Medications Medications: Current Medications Acetaminophen (Tylenol 325mg Tab) 650 mg PO Q6 PRN PRN Reason: Fever >100.4 F Albuterol/Ipratropium (Duoneb 3 Mg/0.5 Mg (3 Ml) Ud) 3 ml IH RQ4 PRN PRN Reason: Shortness of Breath [facility] Last Admin: 12/10/17 09:01 Dose: 667 mg Carvedilol (Coreg) 3.125 mg PO BID [facility] Last Admin: 12/10/17 09:01 Dose: 3.125 mg Clopidogrel Bisulfate (Plavix) 75 mg PO DAILY [facility] Last Admin: 12/10/17 09:01 Dose: 75 mg Dextrose (Dextrose 50% Inj) 0 ml IV STAT PRN; Protocol PRN Reason: Hypoglycemia Protocol Dextrose (Glutose 15) 15 gm PO ONCE PRN; Protocol PRN Reason: Hypoglycemia Protocol Enoxaparin Sodium (Lovenox) 40 mg SC DAILY [facility] Last Admin: 12/10/17 09:01 Dose: 40 mg Furosemide (Lasix) 20 mg IVP Q12 [facility] Last Admin: 12/10/17 09:01 Dose: 20 mg Glucagon (Glucagen Diagnostic Kit) 1 mg IM STAT PRN; Protocol PRN Reason: Hypoglycemia Protocol Vancomycin/Sodium Chloride (Vancomycin 1 Gm/Ns 200 Ml) 1 gm in 200 mls @ 133 mls/hr IVPB Q24H [facility] PRN Reason: Protocol Stop: 12/15/17 18:01 Meropenem 1 gm/ Sodium (Chloride) 100 mls @ 100 mls/hr IVPB Q8 [facility] PRN Reason: Protocol Last Admin: 12/10/17 13:58 Dose: 100 mls/hr Dextrose (Dextrose 5% In Water 1000 Ml) 1,000 mls @ 0 mls/hr IV .Q0M PRN; Protocol; Per Protocol PRN Reason: Hypoglycemia Protocol Losartan Potassium (Cozaar) 25 mg PO DAILY [facility] Last Admin: 12/10/17 09:01 Dose: 25 mg Nystatin (Mycostatin Cream) 0 ea TOP TID [facility] Pantoprazole Sodium (Protonix Ec Tab) 40 mg PO DAILY [facility] Last Admin: 12/10/17 09:01 Dose: 40 mg Physical Exam - Head Exam Head Exam: ATRAUMATIC, NORMOCEPHALIC - Eye Exam Eye Exam: Normal appearance - ENT Exam ENT Exam: Mucous Membranes Moist - Neck Exam Neck exam: Positive for: Normal Inspection - Respiratory Exam Respiratory Exam: Decreased Breath Sounds - Cardiovascular Exam Cardiovascular Exam: REGULAR RHYTHM - GI/Abdominal Exam GI & Abdominal Exam: Normal Bowel Sounds, Soft Results - Vital Signs Recent Vital Signs: Last Vital Signs Temp 97.6 F 12/10/17 12:00 Pulse 88 12/10/17 12:00 Resp 19 12/10/17 12:00 BP 116/56 L 12/10/17 11:59 Pulse Ox 97 12/10/17 12:00 - Labs Result Diagrams: 12/10/17 05:59 12/10/17 06:02 Labs: Laboratory Results - last 24 hr 12/09/17 12/09/17 12/10/17 17:50 22:46 00:57 WBC RBC Hgb Hct MCV MCH MCHC RDW Plt Count MPV Neut % (Auto) Lymph % (Auto) Leon % (Auto) Eos % (Auto) Baso % (Auto) Neut # (Auto) Lymph # (Auto) Leon # (Auto) Eos # (Auto) Baso # (Auto) Puncture Site Lra pCO2 62 H pO2 89 HCO3 31.6 H ABG pH 7.37 ABG Total CO2 37.7 H ABG O2 Saturation 98.4 H ABG Base Excess 8.6 H ABG Hemoglobin 11.7 ABG Carboxyhemoglobin 1.7 H POC ABG HHb (Measured) 1.6 ABG Methemoglobin 1.3 Alejandro Test Pos A-a O2 Difference 119.0 Respiratory Index 1.3 Hgb O2 Saturation 95.4 Vent Mode Cpap Mechanical Rate 5 FiO2 40.0 Pressure Support 10 Sodium Potassium Chloride Carbon Dioxide Anion Gap BUN Creatinine Est GFR ( Amer) Est GFR (Non-Af Amer) POC Glucose (mg/dL) 138 H Random Glucose Calcium Total Bilirubin AST ALT Alkaline Phosphatase Total Protein Albumin Globulin Albumin/Globulin Ratio TSH 3rd Generation Urine Color Yellow Urine Clarity Clear Urine pH 6.0 Ur Specific Manderson 1.019 Urine Protein Negative Urine Glucose (UA) 1+ Urine Ketones Negative Urine Blood Negative Urine Nitrate Negative Urine Bilirubin Negative Urine Urobilinogen 4.0 H Ur Leukocyte Esterase Neg Urine WBC (Auto) 2 Urine RBC (Auto) 4 H Hyaline Casts 0-2 12/10/17 12/10/17 12/10/17 04:59 05:59 06:02 WBC 5.4 RBC 3.87 Hgb 11.6 Hct 32.8 L MCV 84.9 MCH 29.9 MCHC 35.2 RDW 15.6 H Plt Count 177 MPV 7.8 Neut % (Auto) 73.7 Lymph % (Auto) 15.0 L Leon % (Auto) 10.2 H Eos % (Auto) 1.0 Baso % (Auto) 0.1 Neut # (Auto) 4.0 Lymph # (Auto) 0.8 L Leon # (Auto) 0.6 Eos # (Auto) 0.1 Baso # (Auto) 0.0 Puncture Site pCO2 pO2 HCO3 ABG pH ABG Total CO2 ABG O2 Saturation ABG Base Excess ABG Hemoglobin ABG Carboxyhemoglobin POC ABG HHb (Measured) ABG Methemoglobin Alejandro Test A-a O2 Difference Respiratory Index Hgb O2 Saturation Vent Mode Mechanical Rate FiO2 Pressure Support Sodium 134 Potassium 3.9 Chloride 92 L Carbon Dioxide 38 H Anion Gap 9 L BUN 34 H Creatinine 0.5 L Est GFR ( Amer) > 60 Est GFR (Non-Af Amer) > 60 POC Glucose (mg/dL) 136 H Random Glucose 118 H Calcium 8.6 Total Bilirubin 0.6 AST 39 H ALT 73 H Alkaline Phosphatase 64 Total Protein 5.2 L Albumin 2.6 L Globulin 2.6 Albumin/Globulin Ratio 1.0 TSH 3rd Generation 3.22 Urine Color Urine Clarity Urine pH Ur Specific Manderson Urine Protein Urine Glucose (UA) Urine Ketones Urine Blood Urine Nitrate Urine Bilirubin Urine Urobilinogen Ur Leukocyte Esterase Urine WBC (Auto) Urine RBC (Auto) Hyaline Casts 12/10/17 11:13 WBC RBC Hgb Hct MCV MCH MCHC RDW Plt Count MPV Neut % (Auto) Lymph % (Auto) Leon % (Auto) Eos % (Auto) Baso % (Auto) Neut # (Auto) Lymph # (Auto) Leon # (Auto) Eos # (Auto) Baso # (Auto) Puncture Site pCO2 pO2 HCO3 ABG pH ABG Total CO2 ABG O2 Saturation ABG Base Excess ABG Hemoglobin ABG Carboxyhemoglobin POC ABG HHb (Measured) ABG Methemoglobin Alejandro Test A-a O2 Difference Respiratory Index Hgb O2 Saturation Vent Mode Mechanical Rate FiO2 Pressure Support Sodium Potassium Chloride Carbon Dioxide Anion Gap BUN Creatinine Est GFR ( Amer) Est GFR (Non-Af Amer) POC Glucose (mg/dL) 207 H Random Glucose Calcium Total Bilirubin AST ALT Alkaline Phosphatase Total Protein Albumin Globulin Albumin/Globulin Ratio TSH 3rd Generation Urine Color Urine Clarity Urine pH Ur Specific Manderson Urine Protein Urine Glucose (UA) Urine Ketones Urine Blood Urine Nitrate Urine Bilirubin Urine Urobilinogen Ur Leukocyte Esterase Urine WBC (Auto) Urine RBC (Auto) Hyaline Casts Assessment & Plan (1) Pneumonia Status: Acute Comment: continue IV antibiotics. Follow-up culture sensitivity. Status post tracheostomy on ventilator support. continue nebulizer treatment (2) Laryngeal squamous cell carcinoma Status: Acute (3) COPD (chronic obstructive pulmonary disease) Status: Acute
[2017-12-10] MEDS: Nystatin 100,000 Units/gm Cream(15 gm) TOP SCH ×2 (16:35→17:29)
[2017-12-10] MEDS: Vancomycin 1 gm/NS 200 ml 1 GM/200 ML BAG IVPB SCH (17:34)
--- NOTE | 2017-12-11 03:30 | CON ---
DATE: 12/10/2017 HISTORY OF PRESENT ILLNESS: The patient is a 72-year-old female. She was admitted yesterday to the ICU. She comes from the rehab. She has a trach. She was recently here was spitting out greenish sputum, coughing a lot. Came in with shortness of breath. 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 She had pneumonia and also mechanical problems with tracheostomy and underwent another surgery and was weak, was sent to rehab and now returns here with shortness of breath. She was started on IV antibiotics. Then, I was asked to evaluate her for antibiotics. The patient was seen today. However, her culture reports revealed that she has Enterobacter from 12/06/2017 in the sputum, which is more sensitive to meropenem, hence, I changed the antibiotic to meropenem instead of Maxipime that she was getting. The patient was seen today, she was on a trach vent and seemed to be comprehending questions I was asking, but since she had a trach she could not answer back, but she was comfortable on it. PAST MEDICAL HISTORY: Significant for CHF, COPD, hypertension, coronary artery disease. PAST SURGICAL HISTORY: She had surgeries before for cardiac stent in 2010, also had partial thyroidectomy at age 28, appendicectomy at age 15, left hernia repair in 2010. FAMILY HISTORY: Significant for father passing away from [place] at age 40. Most of these were taken from the chart. SOCIAL HISTORY: The patient was a smoker of half pack per day till September of 2017 since the teenage years. No history of alcohol or drug abuse. She has no diabetes and she has no urinary catheter. MEDICATIONS: At this time include Tylenol, DuoNeb, calcium acetate, Coreg, Plavix, she is on IV fluids, Lovenox, furosemide, glucagon that is there but not given, meropenem she is on 1 gm every 8 hours and she is on Protonix and we are giving 1 g, vancomycin daily. REVIEW OF SYSTEMS: Noted from the chart that; CARDIOPULMONARY: She has cardiac issues with hypercholesterolemia, hypertension, smoker, history of COPD, pulmonary montiel. NEUROLOGICAL: No problems reported. HEENT: Hard of hearing. Has right jugular lymph node biopsy done on 10/12/2017. History of vocal cord polyps. ENDOCRINE: She has hypothyroidism. 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 INTEGUMENTARY AND DERM: No skin problems. Has a trach now. MUSCULOSKELETAL: Disorders, none. GI: History of appendicectomy. History of anesthesia in the past. : No problems reported. PSYCHIATRIC: No psych issues. ALLERGIES: NO ALLERGIES. PHYSICAL EXAMINATION: VITAL SIGNS: I find her temperature is now 98.2, pulse 76, respirations of 15, blood pressure 130/78. HEENT: Head is atraumatic, normocephalic. Pupils are reacting to light. Eye movements are unremarkable. She has a trach, trach site was covered with dressing. NECK: Supple. LUNGS: Clear today. HEART: S1, S2 is regular. No murmurs appreciated. ABDOMEN: Soft, nontender. No guarding, no rigidity present. EXTREMITIES: She had foot protectors on. LABORATORY DATA: Labs are noted. Labs show white count is 5.4, hemoglobin is 11.6, hematocrit 32.8, platelet count is 177. Creatinine is 0.5, BUN is 34, sodium 134, potassium 3.9, chloride is 92, and random glucose was 118, AST is 39, ALT is 73, is mildly elevated. Culture from 12/06/2017, blood cultures are negative right now. Sputum pending. Wound had Enterobacter cloacae from the tracheostomy site which is sensitive to meropenem. Chest x-ray shows mild cardiomegaly, atherosclerotic disease, bilateral pleural effusion with bilateral opacities, atelectasis, and/or infiltrates. ASSESSMENT AND PLAN: At this time, she does have history of lung cancer, has Enterobacter and has bilateral infiltrates, so we are treating her for pneumonia also she is getting a diuretic. X-ray when she came in showed poor inspiratory effort, we will continue antibiotics at this time and will follow with the Pulmonary as well as with the oncologist. Chanel Alamo MD
[2017-12-11] MEDS: Meropenem 1 GM in Sodium Chloride 0.9% 100 ML IVPB SCH ×3 (06:00→21:41)
[2017-12-11 07:20] LABS: BASO % 0.2 % (0.0-2.0); EOS # 0.2 K/uL (0.0-0.7); EOS % 3.2 % (0.0-4.0); LYMPH # 1.1 K/uL (1.0-4.3); LYMPH % 16.8 % (20.0-40.0); MEAN CELL VOLUME 84.3 fL (81.0-99.0); MEAN CORPUSCULAR HEMOGLOBIN 29.7 pg (27.0-31.0); MEAN CORPUSCULAR HGB CONC 35.2 g/dL (33.0-37.0); MEAN PLATELET VOLUME 7.8 fL (7.2-11.7); MONO # 0.7 K/uL (0.0-0.8); MONO % 10.6 % (0.0-10.0); NEUT # 4.4 K/uL (1.8-7.0); NEUT % 69.2 % (50.0-75.0); RBC 4.03 Mil/uL (3.80-5.20); RED CELL DISTRIBUTION WIDTH 15.9 % (11.5-14.5); WHITE BLOOD COUNT 6.4 K/uL (4.8-10.8)
[2017-12-11 08:06] LABS: ALB/GLOB RATIO 1.1 (1.0-2.1); ALBUMIN 2.7 g/dL (3.5-5.0); ALT/SGPT 55 U/L (9-52); AST/SGOT 51 U/L (14-36); BLOOD UREA NITROGEN 32 mg/dL (7-17); CALCIUM 8.3 mg/dl (8.6-10.4); GFR AFRICAN-AMERICAN > 60; GFR NON-AFRICAN AMERICAN > 60
[2017-12-11] MEDS: Nystatin 100,000 Units/gm Cream(15 gm) TOP SCH ×3 (09:02→17:13)
[2017-12-11] MEDS: Pantoprazole 40 mg EC Tab PO SCH (09:02)
[2017-12-11] MEDS: Enoxaparin 40 mg Syringe SC SCH (09:02)
[2017-12-11] MEDS ORDERED: Potassium Chloride 20 mEq/15 ml LIQ UD PO ONE (12:15)
--- NOTE | 2017-12-11 12:49 | CP.PCM.PN ---
<Kevin Mayes - Last Filed: 12/11/17 15:06> Subjective - Date & Time of Evaluation Date of Evaluation: 12/11/17 Time of Evaluation: 12:46 - Subjective Subjective: PGY-[address] Henderson's Service: Pt seen and examined at bedside. Nursing reports pt afebrile, and no acute events overnight. Patient shook her head when asked if in any pain, chest pain, SOB. She attempted to write a few messages but the meanings were unclear. Objective - Vital Signs/Intake and Output Vital Signs (last 24 hours): Temp Pulse Resp BP Pulse Ox 97.6 F 81 14 136/79 99 12/11/17 08:00 12/11/17 12:00 12/11/17 12:00 12/11/17 09:01 12/11/17 12:00 Intake and Output: 12/11/17 12/11/17 06:59 18:59 Intake Total 300 420 Output Total 650 600 Balance -350 -180 - Medications Medications: Current Medications Acetaminophen (Tylenol 325mg Tab) 650 mg PO Q6 PRN PRN Reason: Fever >100.4 F Albuterol/Ipratropium (Duoneb 3 Mg/0.5 Mg (3 Ml) Ud) 3 ml IH RQ4 PRN PRN Reason: Shortness of Breath Cal[facility] ([facility]lo) [facility] Last Admin: 12/11/17 08:57 Dose: 667 mg Carvedilol (Coreg) 3.125 mg PO BID [facility] Last Admin: 12/11/17 09:01 Dose: 3.125 mg Clopidogrel Bisulfate (Plavix) 75 mg PO DAILY [facility] Last Admin: 12/11/17 09:02 Dose: 75 mg Dextrose (Dextrose 50% Inj) 0 ml IV STAT PRN; Protocol PRN Reason: Hypoglycemia Protocol Dextrose (Glutose 15) 15 gm PO ONCE PRN; Protocol PRN Reason: Hypoglycemia Protocol Enoxaparin Sodium (Lovenox) 40 mg SC DAILY [facility] Last Admin: 12/11/17 09:02 Dose: 40 mg Furosemide (Lasix) 20 mg IVP Q12 [facility] Last Admin: 12/11/17 09:01 Dose: 20 mg Glucagon (Glucagen Diagnostic Kit) 1 mg IM STAT PRN; Protocol PRN Reason: Hypoglycemia Protocol Vancomycin/Sodium Chloride (Vancomycin 1 Gm/Ns 200 Ml) 1 gm in 200 mls @ 133 mls/hr IVPB Q24H [facility] PRN Reason: Protocol Stop: 12/15/17 18:01 Last Admin: 12/10/17 17:34 Dose: 133 mls/hr Meropenem 1 gm/ Sodium (Chloride) 100 mls @ 100 mls/hr IVPB Q8 [facility] PRN Reason: Protocol Last Admin: 12/11/17 06:00 Dose: 100 mls/hr Dextrose (Dextrose 5% In Water 1000 Ml) 1,000 mls @ 0 mls/hr IV .Q0M PRN; Protocol; Per Protocol PRN Reason: Hypoglycemia Protocol Losartan Potassium (Cozaar) 25 mg PO DAILY [facility] Last Admin: 12/11/17 09:02 Dose: 25 mg Nystatin (Mycostatin Cream) 0 ea TOP TID [facility] Last Admin: 12/11/17 09:02 Dose: 1 applic Pantoprazole Sodium (Protonix Ec Tab) 40 mg PO DAILY [facility] Last Admin: 12/11/17 09:02 Dose: 40 mg - Labs Labs: 12/11/17 04:00 12/11/17 07:46 PT 11.0 SECONDS (9.7-12.2) 12/09/17 14:53 INR 1.0 12/09/17 14:53 APTT 32 SECONDS (21-34) 12/09/17 14:53 - Additional Findings Additional findings: - Constitutional Appears: Non-toxic, No Acute Distress - Head Exam Head Exam: NORMAL INSPECTION, NORMOCEPHALIC - Eye Exam Eye Exam: EOMI, Normal appearance - ENT Exam ENT Exam: Mucous Membranes Moist Additional comments: tracheostomy in place. Trach collar on at 30% - Neck Exam Neck Exam: Full ROM, Normal Inspection. absent: Tenderness, Thyromegaly - Respiratory Exam Respiratory Exam: rales, NORMAL BREATHING PATTERN. absent: Accessory Muscle Use - Cardiovascular Exam Cardiovascular Exam: REGULAR RHYTHM, +S1, +S2 - GI/Abdominal Exam GI & Abdominal Exam: Soft, Normal Bowel Sounds. absent: Tenderness - Extremities Exam Extremities Exam: Full ROM, Normal Inspection. 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 Alamo ID Consult: Dr. Alamo Pulm Consult: Dr. Dumont CHF with preserved ejection fraction 12/09: Lasix 20 IV BID Monitor I and Os, Daily weights Continue with Coreg and ARB if BP is ok CAD, history of stenting Continue with Plavix 75 Crestor ASA added Abdominal aneurysm Recently measuring 4.1 x 4.4 cm Stable at this time. History of hypertension Losartan Coreg History of diabetes mellitus Insulin SS Accucheck Q6H Hypoglycemic protocol s/p G tube insertion Tube feeds currently at 40cc/hr monitor for BM Kevin Mayes DO PGY1 D/w Dr. Henderson <Chavez Henderson H - Last Filed: 12/11/17 18:23> Objective - Vital Signs/Intake and Output Vital Signs (last 24 hours): Temp Pulse Resp BP Pulse Ox 98.4 F 77 20 103/48 L 98 12/11/17 16:00 12/11/17 16:00 12/11/17 16:00 12/11/17 16:00 12/11/17 16:00 Intake and Output: 12/11/17 12/11/17 06:59 18:59 Intake Total 300 1160 Output Total 650 1550 Balance -350 -390 - Medications Medications: Current Medications Acetaminophen (Tylenol 325mg Tab) 650 mg PO Q6 PRN PRN Reason: Fever >100.4 F Albuterol/Ipratropium (Duoneb 3 Mg/0.5 Mg (3 Ml) Ud) 3 ml IH RQ4 PRN PRN Reason: Shortness of Breath Calcium Acetate (Phoslo) 667 mg PO BIDCC [facility] Last Admin: 12/11/17 17:14 Dose: 667 mg Carvedilol (Coreg) 3.125 mg PO BID [facility] Last Admin: 12/11/17 17:14 Dose: 3.125 mg Clopidogrel Bisulfate (Plavix) 75 mg PO DAILY [facility] Last Admin: 12/11/17 09:02 Dose: 75 mg Dextrose (Dextrose 50% Inj) 0 ml IV STAT PRN; Protocol PRN Reason: Hypoglycemia Protocol Dextrose (Glutose 15) 15 gm PO ONCE PRN; Protocol PRN Reason: Hypoglycemia Protocol Enoxaparin Sodium (Lovenox) 40 mg SC DAILY [facility] Last Admin: 12/11/17 09:02 Dose: 40 mg Furosemide (Lasix) 20 mg IVP Q12 [facility] Last Admin: 12/11/17 09:01 Dose: 20 mg Glucagon (Glucagen Diagnostic Kit) 1 mg IM STAT PRN; Protocol PRN Reason: Hypoglycemia Protocol Vancomycin/Sodium Chloride (Vancomycin 1 Gm/Ns 200 Ml) 1 gm in 200 mls @ 133 mls/hr IVPB Q24H [facility] PRN Reason: Protocol Stop: 12/15/17 18:01 Last Admin: 12/11/17 17:14 Dose: 133 mls/hr Meropenem 1 gm/ Sodium (Chloride) 100 mls @ 100 mls/hr IVPB Q8 [facility] PRN Reason: Protocol Last Admin: 12/11/17 13:49 Dose: 100 mls/hr Dextrose (Dextrose 5% In Water 1000 Ml) 1,000 mls @ 0 mls/hr IV .Q0M PRN; Protocol; Per Protocol PRN Reason: Hypoglycemia Protocol Losartan Potassium (Cozaar) 25 mg PO DAILY [facility] Last Admin: 12/11/17 09:02 Dose: 25 mg Nystatin (Mycostatin Cream) 0 ea TOP TID [facility] Last Admin: 12/11/17 17:13 Dose: 1 applic Pantoprazole Sodium (Protonix Ec Tab) 40 mg PO DAILY [facility] Last Admin: 12/11/17 09:02 Dose: 40 mg - Labs Labs: 12/11/17 04:00 12/11/17 07:46 PT 11.0 SECONDS (9.7-12.2) 12/09/17 14:53 INR 1.0 12/09/17 14:53 APTT 32 SECONDS (21-34) 12/09/17 14:53 Attending/Attestation - Attestation I have personally seen and examined this patient.: Yes I have fully participated in the care of the patient.: Yes I have reviewed all pertinent clinical information, including history, physical exam and plan: Yes Notes (Text): 12/11/17 18:21 Medical attending: Patient was seen and examined by me. Agree with the above note by the resident The patient was not in any acute distress when we saw her. She denied pain, denied chest pain, denied stomach pain. She is not able to be verbal due to trach but indicated with head gestures The blood cultures are negative for 48 hrs, the sputum is collected - it's pending results at the moment. The patient remains on IV Vancomycin and IV Meropenom The patient will get another CXRAY tommow. Hopefully less pleural effusion. Her BP has been on lower side and she has been diuresing well with the lasix so will decrease to just ONCE a day thank you Chavez Henderson
--- NOTE | 2017-12-11 12:59 | CP.PCM.PN ---
Subjective - Date & Time of Evaluation Date of Evaluation: 12/11/17 Time of Evaluation: 10:00 - Subjective Subjective: patient seen and examined On ventilatory support Awake and responsive Afebrile For transfer to [facility] Objective - Vital Signs/Intake and Output Vital Signs (last 24 hours): Temp Pulse Resp BP Pulse Ox 97.6 F 85 20 133/76 98 12/11/17 08:00 12/11/17 12:00 12/11/17 12:00 12/11/17 12:00 12/11/17 12:00 Intake and Output: 12/11/17 12/11/17 06:59 18:59 Intake Total 300 420 Output Total 650 600 Balance -350 -180 - Medications Medications: Current Medications Acetaminophen (Tylenol 325mg Tab) 650 mg PO Q6 PRN PRN Reason: Fever >100.4 F Albuterol/Ipratropium (Duoneb 3 Mg/0.5 Mg (3 Ml) Ud) 3 ml IH RQ4 PRN PRN Reason: Shortness of Breath [facility] ([facility]oslo) [facility] Last Admin: 12/11/17 08:57 Dose: 667 mg Carvedilol (Coreg) 3.125 mg PO BID [facility] Last Admin: 12/11/17 09:01 Dose: 3.125 mg Clopidogrel Bisulfate (Plavix) 75 mg PO DAILY [facility] Last Admin: 12/11/17 09:02 Dose: 75 mg Dextrose (Dextrose 50% Inj) 0 ml IV STAT PRN; Protocol PRN Reason: Hypoglycemia Protocol Dextrose (Glutose 15) 15 gm PO ONCE PRN; Protocol PRN Reason: Hypoglycemia Protocol Enoxaparin Sodium (Lovenox) 40 mg SC DAILY [facility] Last Admin: 12/11/17 09:02 Dose: 40 mg Furosemide (Lasix) 20 mg IVP Q12 [facility] Last Admin: 12/11/17 09:01 Dose: 20 mg Glucagon (Glucagen Diagnostic Kit) 1 mg IM STAT PRN; Protocol PRN Reason: Hypoglycemia Protocol Vancomycin/Sodium Chloride (Vancomycin 1 Gm/Ns 200 Ml) 1 gm in 200 mls @ 133 mls/hr IVPB Q24H [facility] PRN Reason: Protocol Stop: 12/15/17 18:01 Last Admin: 12/10/17 17:34 Dose: 133 mls/hr Meropenem 1 gm/ Sodium (Chloride) 100 mls @ 100 mls/hr IVPB Q8 [facility] PRN Reason: Protocol Last Admin: 12/11/17 06:00 Dose: 100 mls/hr Dextrose (Dextrose 5% In Water 1000 Ml) 1,000 mls @ 0 mls/hr IV .Q0M PRN; Protocol; Per Protocol PRN Reason: Hypoglycemia Protocol Losartan Potassium (Cozaar) 25 mg PO DAILY [facility] Last Admin: 12/11/17 09:02 Dose: 25 mg Nystatin (Mycostatin Cream) 0 ea TOP TID [facility] Last Admin: 12/11/17 09:02 Dose: 1 applic Pantoprazole Sodium (Protonix Ec Tab) 40 mg PO DAILY [facility] Last Admin: 12/11/17 09:02 Dose: 40 mg - Labs Labs: 12/11/17 04:00 12/11/17 07:46 PT 11.0 SECONDS (9.7-12.2) 12/09/17 14:53 INR 1.0 12/09/17 14:53 APTT 32 SECONDS (21-34) 12/09/17 14:53 - Head Exam Head Exam: ATRAUMATIC, NORMOCEPHALIC - Eye Exam Eye Exam: Normal appearance - ENT Exam ENT Exam: Mucous Membranes Moist - Neck Exam Neck Exam: Normal Inspection - Respiratory Exam Respiratory Exam: Rales, Rhonchi - Cardiovascular Exam Cardiovascular Exam: REGULAR RHYTHM - GI/Abdominal Exam GI & Abdominal Exam: Soft, Normal Bowel Sounds - Neurological Exam Neurological Exam: Alert Assessment and Plan (1) Pneumonia Assessment & Plan: continue IV antibiotics Trach collar Continue nebulizer treatment Feeding Status: Acute (2) Laryngeal squamous cell carcinoma Status: Acute (3) COPD (chronic obstructive pulmonary disease) Status: Acute
[2017-12-11] MEDS: Vancomycin 1 gm/NS 200 ml 1 GM/200 ML BAG IVPB SCH (17:14)
--- NOTE | 2017-12-11 21:48 | CP.PCM.PN ---
Subjective - Date & Time of Evaluation Date of Evaluation: 12/11/17 Time of Evaluation: 18:15 - Subjective Subjective: Vented, awake Objective - Vital Signs/Intake and Output Vital Signs (last 24 hours): Temp Pulse Resp BP Pulse Ox 98.1 F 62 15 116/65 100 12/11/17 20:00 12/11/17 20:00 12/11/17 20:00 12/11/17 19:59 12/11/17 20:00 Intake and Output: 12/11/17 12/12/17 18:59 06:59 Intake Total 1160 Output Total 1550 Balance -390 - Medications Medications: Current Medications Acetaminophen (Tylenol 325mg Tab) 650 mg PO Q6 PRN PRN Reason: Fever >100.4 F Albuterol/Ipratropium (Duoneb 3 Mg/0.5 Mg (3 Ml) Ud) 3 ml IH RQ4 PRN PRN Reason: Shortness of Breath [facility] Last Admin: 12/11/17 17:14 Dose: 667 mg Carvedilol (Coreg) 3.125 mg PO BID [facility] Last Admin: 12/11/17 17:14 Dose: 3.125 mg Clopidogrel Bisulfate (Plavix) 75 mg PO DAILY [facility] Last Admin: 12/11/17 09:02 Dose: 75 mg Dextrose (Dextrose 50% Inj) 0 ml IV STAT PRN; Protocol PRN Reason: Hypoglycemia Protocol Dextrose (Glutose 15) 15 gm PO ONCE PRN; Protocol PRN Reason: Hypoglycemia Protocol Enoxaparin Sodium (Lovenox) 40 mg SC DAILY [facility] Last Admin: 12/11/17 09:02 Dose: 40 mg Furosemide (Lasix) 20 mg IVP DAILY [facility] Glucagon (Glucagen Diagnostic Kit) 1 mg IM STAT PRN; Protocol PRN Reason: Hypoglycemia Protocol Vancomycin/Sodium Chloride (Vancomycin 1 Gm/Ns 200 Ml) 1 gm in 200 mls @ 133 mls/hr IVPB Q24H [facility] PRN Reason: Protocol Stop: 12/15/17 18:01 Last Admin: 12/11/17 17:14 Dose: 133 mls/hr Meropenem 1 gm/ Sodium (Chloride) 100 mls @ 100 mls/hr IVPB Q8 [facility] PRN Reason: Protocol Last Admin: 12/11/17 21:41 Dose: 100 mls/hr Dextrose (Dextrose 5% In Water 1000 Ml) 1,000 mls @ 0 mls/hr IV .Q0M PRN; Protocol; Per Protocol PRN Reason: Hypoglycemia Protocol Losartan Potassium (Cozaar) 25 mg PO DAILY [facility] Last Admin: 12/11/17 09:02 Dose: 25 mg Nystatin (Mycostatin Cream) 0 ea TOP TID [facility] Last Admin: 12/11/17 17:13 Dose: 1 applic Pantoprazole Sodium (Protonix Ec Tab) 40 mg PO DAILY [facility] Last Admin: 12/11/17 09:02 Dose: 40 mg - Labs Labs: 12/11/17 04:00 12/11/17 07:46 PT 11.0 SECONDS (9.7-12.2) 12/09/17 14:53 INR 1.0 12/09/17 14:53 APTT 32 SECONDS (21-34) 12/09/17 14:53 - Head Exam Head Exam: ATRAUMATIC - Eye Exam Eye Exam: Normal appearance - ENT Exam ENT Exam: Mucous Membranes Dry - Respiratory Exam Respiratory Exam: NORMAL BREATHING PATTERN - Cardiovascular Exam Cardiovascular Exam: +S1, +S2 - GI/Abdominal Exam GI & Abdominal Exam: Normal Bowel Sounds Assessment and Plan (1) Laryngeal squamous cell carcinoma Assessment & Plan: with bilateral cervical lymph node metastasis s/p airway compromise requiring emergent tracheostomy pt is debilitated and currently not a treatment candidate Status: Acute
--- NOTE | 2017-12-11 22:52 | PN ---
DATE: 12/11/2017 SUBJECTIVE: The patient's eyes are open. She is on trach vent. The patient remains with pneumonia. PHYSICAL EXAMINATION: VITAL SIGNS: T-max is 98.4 today, pulse is 77, blood pressure 103/48, respirations are 20. GENERAL: Trach site has a dressing on, she is opening her eyes and trach site is unremarkable at this time. NECK: Supple. LUNGS: Bilateral rhonchi and rales. HEART: S1 and S2 is regular. No murmurs are appreciated. ABDOMEN: Soft, nontender. No guarding, no rigidity present. PEG tube is present. EXTREMITIES: Have no edema. LABORATORY DATA: Her white count is 6.4, hemoglobin 12, hematocrit 34, platelet count is 198, BUN is 12, creatinine is 0.5, AST and ALT is 51/55. Micro montiel, MRSA blood cultures x2 are negative. Sputum is pending. ASSESSMENT AND PLAN: She had Enterobacter on 12/06/2017 from the tracheal aspirate, so she is being treated for pneumonia, most likely from Enterobacter. Also, has laryngeal squamous cell carcinoma status post tracheostomy and respiratory vent and has chronic respiratory failure with chronic obstructive pulmonary disease and today is day 3 of her treatment and she is on Merrem as well as vancomycin. Chanel Alamo MD
[2017-12-12] MEDS: Meropenem 1 GM in Sodium Chloride 0.9% 100 ML IVPB SCH ×3 (05:01→21:44)
[2017-12-12] MEDS: Albuterol-Ipratrop 3 mg / 0.5 (3 ml) UD IH PRN ×3 (07:45→20:07)
[2017-12-12 07:58] LABS: BASO % 0.1 % (0.0-2.0); EOS # 0.2 K/uL (0.0-0.7); EOS % 3.7 % (0.0-4.0); LYMPH # 0.9 K/uL (1.0-4.3); LYMPH % 14.7 % (20.0-40.0); MEAN CELL VOLUME 84.1 fL (81.0-99.0); MEAN CORPUSCULAR HEMOGLOBIN 29.8 pg (27.0-31.0); MEAN CORPUSCULAR HGB CONC 35.4 g/dL (33.0-37.0); MEAN PLATELET VOLUME 7.8 fL (7.2-11.7); MONO # 0.7 K/uL (0.0-0.8); MONO % 11.8 % (0.0-10.0); NEUT % 69.7 % (50.0-75.0); RBC 3.68 Mil/uL (3.80-5.20); RED CELL DISTRIBUTION WIDTH 16.3 % (11.5-14.5); WHITE BLOOD COUNT 5.8 K/uL (4.8-10.8)
[2017-12-12 08:40] LABS: ALB/GLOB RATIO 1.1 (1.0-2.1); ALBUMIN 2.5 g/dL (3.5-5.0); ALT/SGPT 56 U/L (9-52); AST/SGOT 22 U/L (14-36); BLOOD UREA NITROGEN 29 mg/dL (7-17); CALCIUM 8.4 mg/dl (8.6-10.4); GFR AFRICAN-AMERICAN > 60; GFR NON-AFRICAN AMERICAN > 60
--- NOTE | 2017-12-12 10:00 | CP.PCM.PN ---
Subjective - Date & Time of Evaluation Date of Evaluation: 12/12/17 Time of Evaluation: 09:45 - Subjective Subjective: Patient was seen and examined by me. She was not in any acute distress. She remains in the CPAP via trach at this moment. The blood cultures have been negative. Currently pending on the the tracheotomy cultures at this moment The patient had a CXRAY the other day and it appears better. She is on IV lasix only once a day Objective - Vital Signs/Intake and Output Vital Signs (last 24 hours): Temp Pulse Resp BP Pulse Ox 98.9 F 86 20 114/67 95 12/12/17 04:34 12/12/17 07:05 12/12/17 04:34 12/12/17 04:34 12/12/17 04:34 Intake and Output: 12/12/17 12/12/17 06:59 18:59 Intake Total 500 Output Total 300 Balance 200 - Medications Medications: Current Medications Acetaminophen (Tylenol 325mg Tab) 650 mg PO Q6 PRN PRN Reason: Fever >100.4 F Albuterol/Ipratropium (Duoneb 3 Mg/0.5 Mg (3 Ml) Ud) 3 ml IH RQ4 PRN PRN Reason: Shortness of Breath Last Admin: 12/12/17 07:45 Dose: 3 ml [facility] Last Admin: 12/12/17 08:16 Dose: 667 mg Carvedilol (Coreg) 3.125 mg PO BID [facility] Last Admin: 12/11/17 17:14 Dose: 3.125 mg Clopidogrel Bisulfate (Plavix) 75 mg PO DAILY [facility] Last Admin: 12/11/17 09:02 Dose: 75 mg Dextrose (Dextrose 50% Inj) 0 ml IV STAT PRN; Protocol PRN Reason: Hypoglycemia Protocol Dextrose (Glutose 15) 15 gm PO ONCE PRN; Protocol PRN Reason: Hypoglycemia Protocol Enoxaparin Sodium (Lovenox) 40 mg SC DAILY [facility] Last Admin: 12/11/17 09:02 Dose: 40 mg Furosemide (Lasix) 20 mg IVP DAILY [facility] Glucagon (Glucagen Diagnostic Kit) 1 mg IM STAT PRN; Protocol PRN Reason: Hypoglycemia Protocol Vancomycin/Sodium Chloride (Vancomycin 1 Gm/Ns 200 Ml) 1 gm in 200 mls @ 133 mls/hr IVPB Q24H [facility] PRN Reason: Protocol Stop: 12/15/17 18:01 Last Admin: 12/11/17 17:14 Dose: 133 mls/hr Meropenem 1 gm/ Sodium (Chloride) 100 mls @ 100 mls/hr IVPB Q8 [facility] PRN Reason: Protocol Last Admin: 12/12/17 05:01 Dose: 100 mls/hr Dextrose (Dextrose 5% In Water 1000 Ml) 1,000 mls @ 0 mls/hr IV .Q0M PRN; Protocol; Per Protocol PRN Reason: Hypoglycemia Protocol Losartan Potassium (Cozaar) 25 mg PO DAILY [facility] Last Admin: 12/11/17 09:02 Dose: 25 mg Nystatin (Mycostatin Cream) 0 ea TOP TID [facility] Last Admin: 12/11/17 17:13 Dose: 1 applic Pantoprazole Sodium (Protonix Ec Tab) 40 mg PO DAILY [facility] Last Admin: 12/11/17 09:02 Dose: 40 mg - Labs Labs: 12/12/17 07:43 12/12/17 07:43 PT 11.0 SECONDS (9.7-12.2) 12/09/17 14:53 INR 1.0 12/09/17 14:53 APTT 32 SECONDS (21-34) 12/09/17 14:53 Assessment and Plan - Assessment and Plan (Free Text) Assessment: Squamous Cell Laryngeal cancer with lymph node metastasis History of smoking Will need ongoing tracheostomy care Patient is on Trach collar CPAP 04/29 Heme/onc consult: Dr. Dunlap COPD/ Emphysema, likely due to history of smoking 12/12: Change solumedrol to 20 mg IV BID 12/09 Solumedrol 40 mg IV BID Duoneb RQ4H PRN Pneumonia: Hospital Acquired Pneumonia 12/12: The blood cultures are negative, pending the tracheostomy culture 12/09: Blood cultures 12/09: sputum culture from the tracheotomy Patient was in [facility] on Zosyn, was given vancomycin and Cefepime in ED Merrem started 12/09/[address] Alamo ID Consult: Dr. Alamo Pulm Consult: Dr. Dumont CHF with preserved ejection fraction 12/12: CXRAY right side appears better than previous. The lasix is now once a day. 12/09: Lasix 20 IV BID Monitor I and Os, Daily weights Continue with Coreg and ARB if BP is ok CAD, history of stenting Continue with Plavix 75 Crestor ASA added Abdominal aneurysm Recently measuring 4.1 x 4.4 cm Stable at this time. History of hypertension Losartan Coreg History of diabetes mellitus Insulin SS Accucheck Q6H Hypoglycemic protocol s/p G tube insertion Tube feeds currently at 40cc/hr monitor for BM
[2017-12-12] MEDS: Enoxaparin 40 mg Syringe SC SCH (10:16)
[2017-12-12] MEDS: Pantoprazole 40 mg EC Tab PO SCH (10:16)
[2017-12-12] MEDS: Nystatin 100,000 Units/gm Cream(15 gm) TOP SCH ×3 (10:17→17:47)
--- NOTE | 2017-12-12 13:20 | RAD ---
HISTORY: pneumonia and pleural effusion follow up COMPARISON: 12/09/2017 FINDINGS: LUNGS: Substantial decrease in bilateral infiltrates. PLEURA: Diminution in bilateral pleural effusions identified previously. CARDIOVASCULAR: Normal size heart. OSSEOUS STRUCTURES: No significant abnormalities. VISUALIZED UPPER ABDOMEN: Normal. OTHER FINDINGS: Stable, satisfactory position of tracheostomy device. IMPRESSION: Substantial improvement in bilateral infiltrates and effusions. Stable and satisfactory position tracheostomy device.
[2017-12-12] MEDS: Vancomycin 1 gm/NS 200 ml 1 GM/200 ML BAG IVPB SCH (17:45)
[2017-12-13] MEDS: Meropenem 1 GM in Sodium Chloride 0.9% 100 ML IVPB SCH ×3 (05:24→21:33)
[2017-12-13 06:31] LABS: ALB/GLOB RATIO 1.2 (1.0-2.1); ALBUMIN 3.1 g/dL (3.5-5.0); ALT/SGPT 46 U/L (9-52); AST/SGOT 26 U/L (14-36); BLOOD UREA NITROGEN 25 mg/dL (7-17); CALCIUM 8.1 mg/dl (8.6-10.4); GFR AFRICAN-AMERICAN > 60; GFR NON-AFRICAN AMERICAN > 60
[2017-12-13 06:43] LABS: BASO % 0.2 % (0.0-2.0); EOS % 0.1 % (0.0-4.0); HEMOGLOBIN 11.7 g/dL (11.0-16.0); LYMPH # 0.3 K/uL (1.0-4.3); LYMPH % 5.6 % (20.0-40.0); MEAN CELL VOLUME 84.2 fL (81.0-99.0); MEAN CORPUSCULAR HEMOGLOBIN 29.9 pg (27.0-31.0); MEAN CORPUSCULAR HGB CONC 35.5 g/dL (33.0-37.0); MEAN PLATELET VOLUME 7.9 fL (7.2-11.7); MONO # 0.1 K/uL (0.0-0.8); MONO % 2.5 % (0.0-10.0); NEUT % 91.6 % (50.0-75.0); NRBC % 0.1 % (0.0-2.0); PLATELET COUNT 199 K/uL (130-400); RBC 3.93 Mil/uL (3.80-5.20); RED CELL DISTRIBUTION WIDTH 15.9 % (11.5-14.5); WHITE BLOOD COUNT 5.5 K/uL (4.8-10.8)
--- NOTE | 2017-12-13 08:00 | CP.PCM.PN ---
<Gi Garcia - Last Filed: 12/13/17 17:07> Subjective - Date & Time of Evaluation Date of Evaluation: 12/13/17 Time of Evaluation: 07:00 - Subjective Subjective: Medicine Progress Note: Patient was seen and examined at beside in the AM. Patient shook her head when asked if in any pain, chest pain, or shortness of breath. Objective - Vital Signs/Intake and Output Vital Signs (last 24 hours): Temp Pulse Resp BP Pulse Ox 97.9 F 91 H 20 138/78 98 12/13/17 07:54 12/13/17 07:54 12/13/17 07:54 12/13/17 07:54 12/13/17 07:54 Intake and Output: 12/13/17 12/13/17 06:59 18:59 Intake Total 420 Output Total 700 Balance -280 - Medications Medications: Current Medications Acetaminophen (Tylenol 325mg Tab) 650 mg PO Q6 PRN PRN Reason: Fever >100.4 F Albuterol/Ipratropium (Duoneb 3 Mg/0.5 Mg (3 Ml) Ud) 3 ml IH RQ4 PRN PRN Reason: Shortness of Breath Last Admin: 12/12/17 20:07 Dose: 3 ml [facility] Last Admin: 12/12/17 17:46 Dose: 667 mg Carvedilol (Coreg) 3.125 mg PO BID [facility] Last Admin: 12/12/17 17:46 Dose: 3.125 mg Clopidogrel Bisulfate (Plavix) 75 mg PO DAILY [facility] Last Admin: 12/12/17 10:16 Dose: 75 mg Dextrose (Dextrose 50% Inj) 0 ml IV STAT PRN; Protocol PRN Reason: Hypoglycemia Protocol Dextrose (Glutose 15) 15 gm PO ONCE PRN; Protocol PRN Reason: Hypoglycemia Protocol Enoxaparin Sodium (Lovenox) 40 mg SC DAILY [facility] Last Admin: 12/12/17 10:16 Dose: 40 mg Furosemide (Lasix) 20 mg IVP DAILY [facility] Last Admin: 12/12/17 10:17 Dose: 20 mg Glucagon (Glucagen Diagnostic Kit) 1 mg IM STAT PRN; Protocol PRN Reason: Hypoglycemia Protocol Vancomycin/Sodium Chloride (Vancomycin 1 Gm/Ns 200 Ml) 1 gm in 200 mls @ 133 mls/hr IVPB Q24H [facility] PRN Reason: Protocol Stop: 12/15/17 18:01 Last Admin: 12/12/17 17:45 Dose: 133 mls/hr Meropenem 1 gm/ Sodium (Chloride) 100 mls @ 100 mls/hr IVPB Q8 [facility] PRN Reason: Protocol Last Admin: 12/13/17 05:24 Dose: 100 mls/hr Dextrose (Dextrose 5% In Water 1000 Ml) 1,000 mls @ 0 mls/hr IV .Q0M PRN; Protocol; Per Protocol PRN Reason: Hypoglycemia Protocol Losartan Potassium (Cozaar) 25 mg PO DAILY [facility] Last Admin: 12/12/17 10:16 Dose: 25 mg Methylprednisolone (Solu-Medrol) 20 mg IV Q12 [facility] Last Admin: 12/12/17 21:43 Dose: 20 mg Nystatin (Mycostatin Cream) 0 ea TOP TID [facility] Last Admin: 12/12/17 17:47 Dose: 1 applic Pantoprazole Sodium (Protonix Ec Tab) 40 mg PO DAILY [facility] Last Admin: 12/12/17 10:16 Dose: 40 mg - Labs Labs: 12/13/17 06:09 12/13/17 06:09 PT 11.0 SECONDS (9.7-12.2) 12/09/17 14:53 INR 1.0 12/09/17 14:53 APTT 32 SECONDS (21-34) 12/09/17 14:53 - Constitutional Appears: Chronically Ill - Head Exam Head Exam: ATRAUMATIC, NORMAL INSPECTION - Eye Exam Eye Exam: EOMI, Normal appearance - Neck Exam Additional comments: Trach in place - Respiratory Exam Respiratory Exam: Rales, NORMAL BREATHING PATTERN. absent: Accessory Muscle Use - Cardiovascular Exam Cardiovascular Exam: REGULAR RHYTHM, +S1, +S2 - GI/Abdominal Exam GI & Abdominal Exam: Soft, Normal Bowel Sounds. absent: Tenderness - Extremities Exam Extremities Exam: Normal Inspection - Neurological Exam Neurological Exam: Alert, Awake, Oriented x3 - Psychiatric Exam Psychiatric exam: Normal Affect - Skin Skin Exam: Normal Color Assessment and Plan - Assessment and Plan (Free Text) Assessment: Squamous Cell Laryngeal cancer with lymph node metastasis History of smoking Will need ongoing tracheostomy care Patient is on Trach collar CPAP 04/29 Heme/onc consult: Dr. Dunlap COPD/ Emphysema, likely due to history of smoking 12/09 Solumedrol 20 mg IV q12h Duoneb RQ4H PRN Pneumonia: Hospital Acquired Pneumonia 12/09: Blood cultures 12/09: sputum culture from the tracheotomy Patient was in [facility] on Zosyn, was given vancomycin and Cefepime in ED Merrem started 12/09/[address] Alamo ID Consult: Dr. Alamo Pulm Consult: Dr. Dumont CHF with preserved ejection fraction 12/09: Lasix 20 IV BID Monitor I and Os, Daily weights Continue with Coreg and ARB if BP is ok CAD, history of stenting Continue with Plavix 75 Crestor ASA added Abdominal aneurysm Recently measuring 4.1 x 4.4 cm Stable at this time. History of hypertension Losartan Coreg History of diabetes mellitus Insulin SS Accucheck Q6H Hypoglycemic protocol s/p G tube insertion Tube feeds currently at 40cc/hr monitor for BM Prophylaxis Pepcid 20mg bid Lovenox 40mg sc daily [facility] Disposition: Pending insurance approval to return back to [place]. Patient will be discharged with home medications and Cipro 500mg bid for 3 days; Prednisone taper (20mg daily for 3 days; 10mg daily for 3 days; 5 mg daily for 3 days). Case discussed with Dr. Angel Garcia PGY-1 <Kanu Ortiz - Last Filed: 12/15/17 15:20> Objective - Vital Signs/Intake and Output Vital Signs (last 24 hours): Temp Pulse Resp BP Pulse Ox 97.3 F L 57 L 20 160/85 H 95 12/15/17 09:08 12/15/17 12:00 12/15/17 09:08 12/15/17 09:31 12/15/17 09:08 Intake and Output: 12/15/17 12/15/17 06:59 18:59 Intake Total 520 Output Total 850 Balance -330 - Medications Medications: Current Medications Acetaminophen (Tylenol 325mg Tab) 650 mg PO Q6 PRN PRN Reason: Fever >100.4 F Albuterol/Ipratropium (Duoneb 3 Mg/0.5 Mg (3 Ml) Ud) 3 ml IH RQ4 [facility] Last Admin: 12/15/17 11:05 Dose: 3 ml Calcium Acetate (Phoslo) 667 mg PO BIDCC [facility] Last Admin: 12/15/17 08:22 Dose: 667 mg Carvedilol (Coreg) 3.125 mg PO BID [facility] Last Admin: 12/15/17 09:23 Dose: 3.125 mg Clopidogrel Bisulfate (Plavix) 75 mg PO DAILY [facility] Last Admin: 12/15/17 09:24 Dose: 75 mg Dextrose (Dextrose 50% Inj) 0 ml IV STAT PRN; Protocol PRN Reason: Hypoglycemia Protocol Dextrose (Glutose 15) 15 gm PO ONCE PRN; Protocol PRN Reason: Hypoglycemia Protocol Enoxaparin Sodium (Lovenox) 40 mg SC DAILY [facility] Last Admin: 12/15/17 09:24 Dose: 40 mg Famotidine (Pepcid) 20 mg GT BID [facility] Last Admin: 12/15/17 09:24 Dose: 20 mg Glucagon (Glucagen Diagnostic Kit) 1 mg IM STAT PRN; Protocol PRN Reason: Hypoglycemia Protocol Dextrose (Dextrose 5% In Water 1000 Ml) 1,000 mls @ 0 mls/hr IV .Q0M PRN; Protocol; Per Protocol PRN Reason: Hypoglycemia Protocol Meropenem 1 gm/ Sodium (Chloride) 100 mls @ 100 mls/hr IVPB Q8 [facility] PRN Reason: Protocol Last Admin: 12/15/17 14:28 Dose: 100 mls/hr Sodium Chloride (Sodium Chloride 0.9%) 500 mls @ 150 mls/hr IV .Q3H20M ONE Stop: 12/15/17 18:33 Insulin Human Regular (Novolin R) 0 unit SC ACHS [facility] PRN Reason: Protocol Last Admin: 12/15/17 12:28 Dose: 4 unit Losartan Potassium (Cozaar) 25 mg PO DAILY [facility] Last Admin: 12/15/17 09:24 Dose: 25 mg Methylprednisolone (Solu-Medrol) 20 mg IV Q12 [facility] Last Admin: 12/15/17 09:31 Dose: 20 mg Nystatin (Mycostatin Cream) 0 ea TOP TID [facility] Last Admin: 12/15/17 14:40 Dose: 1 applic - Labs Labs: 12/15/17 11:30 12/15/17 11:30 PT 11.0 SECONDS (9.7-12.2) 12/09/17 14:53 INR 1.0 12/09/17 14:53 APTT 32 SECONDS (21-34) 12/09/17 14:53 Attending/Attestation - Attestation I have personally seen and examined this patient.: Yes I have fully participated in the care of the patient.: Yes I have reviewed all pertinent clinical information, including history, physical exam and plan: Yes Notes (Text): Seen and examined. patient has no complain,lying comfortable No sob,lungs few rales continue antibiotics as per ID Chext x ray better Dr Dumont's follow up appreciated Discussed with resident I agree with the resident's documentation of the assessment and the plan.
[2017-12-13 09:17] LABS: BANDS 2 % (0-2); LYMPHOCYTE 5 % (20-40); MONOCYTE 2 % (0-10); NEUTROPHIL 91 % (50-75); PLATELET ESTIMATE NORMAL (NORMAL); TOTAL CELLS COUNTED 100
[2017-12-13 09:18] LABS: ANISOCYTOSIS SLIGHT; HYPOCHROMIC SLIGHT; LARGE PLATELETS PRESENT; POLYCHROMIC SLIGHT
[2017-12-13 09:19] LABS: TOXIC GRANULATION PRESENT
[2017-12-13] MEDS: Enoxaparin 40 mg Syringe SC SCH (09:53)
[2017-12-13] MEDS: Nystatin 100,000 Units/gm Cream(15 gm) TOP SCH ×3 (09:55→17:46)
[2017-12-13] MEDS: (Novolin R) Insulin Human Regular 100 units/ml vial SC SCH ×2 (17:00→21:29)
--- NOTE | 2017-12-13 17:30 | CP.PCM.PN ---
Subjective - Date & Time of Evaluation Date of Evaluation: 12/13/17 Time of Evaluation: 12:00 - Subjective Subjective: Patient seen and examined at bedside today Patient was laying comfortably in bed watching tv. Patient awake, responsive, and in no acute distress. Assessment/Plan: 1. Pneumonia - Most recent CXR ( 12/12/2017): Substantial improvement in bilateral infiltrates and effusions. - Continue IV antibiotics, meropenem and Vancomycin - Continue nebulizer treatment - Continue Solumedrol 2. Laryngeal squamous cell carcinoma - With Trach collar 3. COPD Objective - Vital Signs/Intake and Output Vital Signs (last 24 hours): Temp Pulse Resp BP Pulse Ox 97.8 F 66 20 145/81 99 12/13/17 16:00 12/13/17 16:00 12/13/17 16:00 12/13/17 16:00 12/13/17 16:00 Intake and Output: 12/13/17 12/13/17 06:59 18:59 Intake Total 420 Output Total 700 Balance -280 - Medications Medications: Current Medications Acetaminophen (Tylenol 325mg Tab) 650 mg PO Q6 PRN PRN Reason: Fever >100.4 F Albuterol/Ipratropium (Duoneb 3 Mg/0.5 Mg (3 Ml) Ud) 3 ml IH RQ4 PRN PRN Reason: Shortness of Breath Last Admin: 12/12/17 20:07 Dose: 3 ml Calcium Acetate (Phoslo) 667 mg PO [facility] Last Admin: 12/13/17 09:00 Dose: 667 mg Carvedilol (Coreg) 3.125 mg PO BID [facility] Last Admin: 12/13/17 09:52 Dose: 3.125 mg Clopidogrel Bisulfate (Plavix) 75 mg PO DAILY [facility] Last Admin: 12/13/17 09:53 Dose: 75 mg Dextrose (Dextrose 50% Inj) 0 ml IV STAT PRN; Protocol PRN Reason: Hypoglycemia Protocol Dextrose (Glutose 15) 15 gm PO ONCE PRN; Protocol PRN Reason: Hypoglycemia Protocol Enoxaparin Sodium (Lovenox) 40 mg SC DAILY [facility] Last Admin: 12/13/17 09:53 Dose: 40 mg Famotidine (Pepcid) 20 mg GT BID [facility] Last Admin: 12/13/17 10:56 Dose: 20 mg Furosemide (Lasix) 20 mg IVP DAILY [facility] Last Admin: 12/13/17 09:52 Dose: 20 mg Glucagon (Glucagen Diagnostic Kit) 1 mg IM STAT PRN; Protocol PRN Reason: Hypoglycemia Protocol Vancomycin/Sodium Chloride (Vancomycin 1 Gm/Ns 200 Ml) 1 gm in 200 mls @ 133 mls/hr IVPB Q24H [facility] PRN Reason: Protocol Stop: 12/15/17 18:01 Last Admin: 12/12/17 17:45 Dose: 133 mls/hr Dextrose (Dextrose 5% In Water 1000 Ml) 1,000 mls @ 0 mls/hr IV .Q0M PRN; Protocol; Per Protocol PRN Reason: Hypoglycemia Protocol Meropenem 1 gm/ Sodium (Chloride) 100 mls @ 100 mls/hr IVPB Q8 [facility] PRN Reason: Protocol Last Admin: 12/13/17 13:25 Dose: 100 mls/hr Insulin Human Regular (Novolin R) 0 unit SC ACHS [facility] PRN Reason: Protocol Losartan Potassium (Cozaar) 25 mg PO DAILY [facility] Last Admin: 12/13/17 09:53 Dose: 25 mg Methylprednisolone (Solu-Medrol) 20 mg IV Q12 [facility] Last Admin: 12/13/17 09:53 Dose: 20 mg Nystatin (Mycostatin Cream) 0 ea TOP TID [facility] Last Admin: 12/13/17 13:26 Dose: 1 applic - Labs Labs: 12/13/17 06:09 12/13/17 06:09 PT 11.0 SECONDS (9.7-12.2) 12/09/17 14:53 INR 1.0 12/09/17 14:53 APTT 32 SECONDS (21-34) 12/09/17 14:53 Assessment and Plan (1) Pneumonia Status: Acute (2) Laryngeal squamous cell carcinoma Status: Acute (3) COPD (chronic obstructive pulmonary disease) Status: Acute
[2017-12-13] MEDS: Vancomycin 1 gm/NS 200 ml 1 GM/200 ML BAG IVPB SCH (17:45)
--- NOTE | 2017-12-13 18:26 | CP.PCM.PN ---
Subjective - Date & Time of Evaluation Date of Evaluation: 12/13/17 Time of Evaluation: 04:10 - Subjective Subjective: dictated Objective - Vital Signs/Intake and Output Vital Signs (last 24 hours): Temp Pulse Resp BP Pulse Ox 97.8 F 66 20 145/81 99 12/13/17 16:00 12/13/17 16:00 12/13/17 16:00 12/13/17 16:00 12/13/17 16:00 Intake and Output: 12/13/17 12/13/17 06:59 18:59 Intake Total 420 Output Total 700 Balance -280 - Medications Medications: Current Medications Acetaminophen (Tylenol 325mg Tab) 650 mg PO Q6 PRN PRN Reason: Fever >100.4 F Albuterol/Ipratropium (Duoneb 3 Mg/0.5 Mg (3 Ml) Ud) 3 ml IH RQ4 PRN PRN Reason: Shortness of Breath Last Admin: 12/12/17 20:07 Dose: 3 [facility] Last Admin: 12/13/17 17:44 Dose: 667 mg Carvedilol (Coreg) 3.125 mg PO BID [facility] Last Admin: 12/13/17 17:44 Dose: 3.125 mg Clopidogrel Bisulfate (Plavix) 75 mg PO DAILY [facility] Last Admin: 12/13/17 09:53 Dose: 75 mg Dextrose (Dextrose 50% Inj) 0 ml IV STAT PRN; Protocol PRN Reason: Hypoglycemia Protocol Dextrose (Glutose 15) 15 gm PO ONCE PRN; Protocol PRN Reason: Hypoglycemia Protocol Enoxaparin Sodium (Lovenox) 40 mg SC DAILY [facility] Last Admin: 12/13/17 09:53 Dose: 40 mg Famotidine (Pepcid) 20 mg GT BID [facility] Last Admin: 12/13/17 17:44 Dose: 20 mg Furosemide (Lasix) 20 mg IVP DAILY [facility] Last Admin: 12/13/17 09:52 Dose: 20 mg Glucagon (Glucagen Diagnostic Kit) 1 mg IM STAT PRN; Protocol PRN Reason: Hypoglycemia Protocol Vancomycin/Sodium Chloride (Vancomycin 1 Gm/Ns 200 Ml) 1 gm in 200 mls @ 133 mls/hr IVPB Q24H [facility] PRN Reason: Protocol Stop: 12/15/17 18:01 Last Admin: 12/13/17 17:45 Dose: 133 mls/hr Dextrose (Dextrose 5% In Water 1000 Ml) 1,000 mls @ 0 mls/hr IV .Q0M PRN; Protocol; Per Protocol PRN Reason: Hypoglycemia Protocol Meropenem 1 gm/ Sodium (Chloride) 100 mls @ 100 mls/hr IVPB Q8 [facility] PRN Reason: Protocol Last Admin: 12/13/17 13:25 Dose: 100 mls/hr Insulin Human Regular (Novolin R) 0 unit SC ACHS [facility] PRN Reason: Protocol Last Admin: 12/13/17 17:00 Dose: 2 unit Losartan Potassium (Cozaar) 25 mg PO DAILY [facility] Last Admin: 12/13/17 09:53 Dose: 25 mg Methylprednisolone (Solu-Medrol) 20 mg IV Q12 [facility] Last Admin: 12/13/17 09:53 Dose: 20 mg Nystatin (Mycostatin Cream) 0 ea TOP TID [facility] Last Admin: 12/13/17 17:46 Dose: 1 applic - Labs Labs: 12/13/17 06:09 12/13/17 06:09 PT 11.0 SECONDS (9.7-12.2) 12/09/17 14:53 INR 1.0 12/09/17 14:53 APTT 32 SECONDS (21-34) 12/09/17 14:53
--- NOTE | 2017-12-13 23:40 | PN ---
DATE: 12/13/2017 SUBJECTIVE: The patient was seen today. She was awake and alert. She has a trach collar. She hence cannot communicate, but she looks comfortable. PHYSICAL EXAMINATION: VITAL SIGNS: T-max is 97.8, pulse 66, blood pressure 145/81, respirations are 20. Trach collar is present. HEENT: Head is atraumatic. NECK: Supple. LUNGS: Had occasional rhonchi. No wheezing. Otherwise clear. HEART: S1, S2 regular. ABDOMEN: Soft. Nontender. No guarding. No rigidity present. EXTREMITIES: Have no edema. LABORATORY DATA: Chest x-ray from yesterday showed improvement and bilateral infiltrates and she is looking better. She did have Enterobacter on her last culture, which was on 12/06/2017. Right now culture growth is negative, and she has received antibiotics from ,, , , so today is the fifth day, and the attending was asking to send her back so if she is going to go back, they can send her back with [facility] for next three days. Otherwise, I would continue with the IV antibiotics until she is here. IMPRESSION: She came with pneumonia. She has laryngeal carcinoma, status post tracheostomy and is feeling better. Chanel Alamo MD
[2017-12-14] MEDS: Meropenem 1 GM in Sodium Chloride 0.9% 100 ML IVPB SCH ×3 (05:11→21:34)
[2017-12-14 07:10] LABS: BASO % 0.2 % (0.0-2.0); EOS % 0.1 % (0.0-4.0); HEMOGLOBIN 11.8 g/dL (11.0-16.0); LYMPH # 0.5 K/uL (1.0-4.3); LYMPH % 7.3 % (20.0-40.0); MEAN CELL VOLUME 84.2 fL (81.0-99.0); MEAN CORPUSCULAR HEMOGLOBIN 29.9 pg (27.0-31.0); MEAN CORPUSCULAR HGB CONC 35.5 g/dL (33.0-37.0); MEAN PLATELET VOLUME 7.6 fL (7.2-11.7); MONO # 0.7 K/uL (0.0-0.8); MONO % 9.9 % (0.0-10.0); NEUT % 82.5 % (50.0-75.0); NRBC % 0.1 % (0.0-2.0); PLATELET COUNT 217 K/uL (130-400); RBC 3.94 Mil/uL (3.80-5.20); RED CELL DISTRIBUTION WIDTH 16.1 % (11.5-14.5); WHITE BLOOD COUNT 7.3 K/uL (4.8-10.8)
[2017-12-14 08:05] LABS: ALB/GLOB RATIO 1.1 (1.0-2.1); ALBUMIN 2.8 g/dL (3.5-5.0); ALT/SGPT 44 U/L (9-52); AST/SGOT 22 U/L (14-36); BLOOD UREA NITROGEN 27 mg/dL (7-17); CALCIUM 8.2 mg/dl (8.6-10.4); GFR AFRICAN-AMERICAN > 60; GFR NON-AFRICAN AMERICAN > 60
[2017-12-14] MEDS: (Novolin R) Insulin Human Regular 100 units/ml vial SC SCH ×4 (08:20→21:35)
[2017-12-14 09:16] LABS: ANISOCYTOSIS SLIGHT; LYMPHOCYTE 6 % (20-40); MONOCYTE 9 % (0-10); NEUTROPHIL 85 % (50-75); PLATELET ESTIMATE NORMAL (NORMAL); TOTAL CELLS COUNTED 100
[2017-12-14] MEDS: Nystatin 100,000 Units/gm Cream(15 gm) TOP SCH ×3 (09:47→17:08)
[2017-12-14] MEDS: Enoxaparin 40 mg Syringe SC SCH (09:51)
--- NOTE | 2017-12-14 12:25 | CARD ---
APPROVED REPORT EKG Measurement Heart [id number] <Conclusion> Normal sinus rhythm with sinus arrhythmia Minimal voltage criteria for LVH, may be normal variant Inferior infarct, age undetermined T wave abnormality, consider anterior ischemia Abnormal ECG
[2017-12-14] MEDS ORDERED: Albuterol-Ipratrop 3 mg / 0.5 (3 ml) UD IH SCH (14:00)
--- NOTE | 2017-12-14 15:30 | CP.PCM.PN ---
Subjective - Date & Time of Evaluation Date of Evaluation: 12/14/17 Time of Evaluation: : - Subjective Subjective: 72 year-old female seen today and examined at bedside. Patient's daughter complaining that patient's cough sounds "wetter" than previously. Patient resting with tracheostomy in-place and saturating at 98% with trach collar. Patient not apparently in respiratory distress, but is bothered by cough. Patient denies chest pain, palpitations, chills and vomiting. Assessment/Plan 1. Pneumonia Patient currently afebrile, with WBC of 7.3. Most recent CXR (12/12) showed substantial improvement of bilateral infiltrates, but will keep in the hospital due to change in nature of cough. Re-evaluate tomorrow with new CXR and consider discharge. Continue suctioning and routine tracheostomy care. 2. Laryngeal Squamous Cell Carcinoma Not currently a treatable candidate per Oncology recommendations. 3. COPD Continue Duoneb treatments. Objective - Vital Signs/Intake and Output Vital Signs (last 24 hours): Temp Pulse Resp BP Pulse Ox 98.0 F 62 20 150/98 H 98 12/14/17 08:26 12/14/17 12:43 12/14/17 08:26 12/14/17 09:54 12/14/17 08:26 Intake and Output: 12/14/17 12/14/17 06:59 18:59 Intake Total 820 420 Output Total 500 1100 Balance 320 -680 - Medications Medications: Current Medications Acetaminophen (Tylenol 325mg Tab) 650 mg PO Q6 PRN PRN Reason: Fever >100.4 F Albuterol/Ipratropium (Duoneb 3 Mg/0.5 Mg (3 Ml) Ud) 3 ml IH RQ4 [facility] Calcium Acetate (Phoslo) 667 mg PO BIDCC [facility] Last Admin: 12/14/17 08:20 Dose: 667 mg Carvedilol (Coreg) 3.125 mg PO BID [facility] Last Admin: 12/14/17 09:40 Dose: 3.125 mg Clopidogrel Bisulfate (Plavix) 75 mg PO DAILY [facility] Last Admin: 12/14/17 09:41 Dose: 75 mg Dextrose (Dextrose 50% Inj) 0 ml IV STAT PRN; Protocol PRN Reason: Hypoglycemia Protocol Dextrose (Glutose 15) 15 gm PO ONCE PRN; Protocol PRN Reason: Hypoglycemia Protocol Enoxaparin Sodium (Lovenox) 40 mg SC DAILY [facility] Last Admin: 12/14/17 09:51 Dose: 40 mg Famotidine (Pepcid) 20 mg GT BID [facility] Last Admin: 12/14/17 09:42 Dose: 20 mg Furosemide (Lasix) 20 mg IVP DAILY [facility] Last Admin: 12/14/17 09:54 Dose: 20 mg Glucagon (Glucagen Diagnostic Kit) 1 mg IM STAT PRN; Protocol PRN Reason: Hypoglycemia Protocol Vancomycin/Sodium Chloride (Vancomycin 1 Gm/Ns 200 Ml) 1 gm in 200 mls @ 133 mls/hr IVPB Q24H [facility] PRN Reason: Protocol Stop: 12/15/17 18:01 Last Admin: 12/13/17 17:45 Dose: 133 mls/hr Dextrose (Dextrose 5% In Water 1000 Ml) 1,000 mls @ 0 mls/hr IV .Q0M PRN; Protocol; Per Protocol PRN Reason: Hypoglycemia Protocol Meropenem 1 gm/ Sodium (Chloride) 100 mls @ 100 mls/hr IVPB Q8 [facility] PRN Reason: Protocol Last Admin: 12/14/17 13:51 Dose: 100 mls/hr Insulin Human Regular (Novolin R) 0 unit SC ACHS [facility] PRN Reason: Protocol Last Admin: 12/14/17 12:36 Dose: 4 unit Losartan Potassium (Cozaar) 25 mg PO DAILY [facility] Last Admin: 12/14/17 09:40 Dose: 25 mg Methylprednisolone (Solu-Medrol) 20 mg IV Q12 [facility] Last Admin: 12/14/17 09:53 Dose: 20 mg Nystatin (Mycostatin Cream) 0 ea TOP TID [facility] Last Admin: 12/14/17 13:58 Dose: 1 applic - Labs Labs: 12/14/17 07:06 12/14/17 07:06 PT 11.0 SECONDS (9.7-12.2) 12/09/17 14:53 INR 1.0 12/09/17 14:53 APTT 32 SECONDS (21-34) 12/09/17 14:53 Assessment and Plan (1) Pneumonia Status: Acute (2) Laryngeal squamous cell carcinoma Status: Acute (3) COPD (chronic obstructive pulmonary disease) Status: Acute
[2017-12-14] MEDS: Albuterol-Ipratrop 3 mg / 0.5 (3 ml) UD IH SCH ×2 (16:29→19:34)
[2017-12-14] MEDS: Vancomycin 1 gm/NS 200 ml 1 GM/200 ML BAG IVPB SCH (17:07)
--- NOTE | 2017-12-14 19:24 | CP.PCM.PN ---
<Gi Garcia - Last Filed: 12/14/17 19:20> Subjective - Date & Time of Evaluation Date of Evaluation: 12/14/17 Time of Evaluation: 07:00 - Subjective Subjective: Medicine Progress Note: Patient was seen and examined at beside in the AM. Patient stated she had some shortness of breath per the nurse. Patient states she would not like to go back to [place]. Patient denies chest pain, nausea or vomiting. Objective - Vital Signs/Intake and Output Vital Signs (last 24 hours): Temp Pulse Resp BP Pulse Ox 97.6 F 69 22 156/79 H 97 12/14/17 16:00 12/14/17 16:00 12/14/17 16:00 12/14/17 16:00 12/14/17 16:00 Intake and Output: 12/14/17 12/15/17 18:59 06:59 Intake Total 420 Output Total 1100 Balance -680 - Medications Medications: Current Medications Acetaminophen (Tylenol 325mg Tab) 650 mg PO Q6 PRN PRN Reason: Fever >100.4 F Albuterol/Ipratropium (Duoneb 3 Mg/0.5 Mg (3 Ml) Ud) 3 ml IH RQ4 [facility] Last Admin: 12/14/17 16:29 Dose: 3 ml Calcium Acetate (Phoslo) 667 mg PO BIDCC [facility] Last Admin: 12/14/17 16:33 Dose: 667 mg Carvedilol (Coreg) 3.125 mg PO BID [facility] Last Admin: 12/14/17 17:06 Dose: 3.125 mg Clopidogrel Bisulfate (Plavix) 75 mg PO DAILY [facility] Last Admin: 12/14/17 09:41 Dose: 75 mg Dextrose (Dextrose 50% Inj) 0 ml IV STAT PRN; Protocol PRN Reason: Hypoglycemia Protocol Dextrose (Glutose 15) 15 gm PO ONCE PRN; Protocol PRN Reason: Hypoglycemia Protocol Enoxaparin Sodium (Lovenox) 40 mg SC DAILY [facility] Last Admin: 12/14/17 09:51 Dose: 40 mg Famotidine (Pepcid) 20 mg GT BID [facility] Last Admin: 12/14/17 17:06 Dose: 20 mg Furosemide (Lasix) 20 mg IVP DAILY [facility] Last Admin: 12/14/17 09:54 Dose: 20 mg Glucagon (Glucagen Diagnostic Kit) 1 mg IM STAT PRN; Protocol PRN Reason: Hypoglycemia Protocol Vancomycin/Sodium Chloride (Vancomycin 1 Gm/Ns 200 Ml) 1 gm in 200 mls @ 133 mls/hr IVPB Q24H [facility] PRN Reason: Protocol Stop: 12/15/17 18:01 Last Admin: 12/14/17 17:07 Dose: 133 mls/hr Dextrose (Dextrose 5% In Water 1000 Ml) 1,000 mls @ 0 mls/hr IV .Q0M PRN; Protocol; Per Protocol PRN Reason: Hypoglycemia Protocol Meropenem 1 gm/ Sodium (Chloride) 100 mls @ 100 mls/hr IVPB Q8 [facility] PRN Reason: Protocol Last Admin: 12/14/17 13:51 Dose: 100 mls/hr Insulin Human Regular (Novolin R) 0 unit SC ACHS [facility] PRN Reason: Protocol Last Admin: 12/14/17 16:33 Dose: 4 unit Losartan Potassium (Cozaar) 25 mg PO DAILY [facility] Last Admin: 12/14/17 09:40 Dose: 25 mg Methylprednisolone (Solu-Medrol) 20 mg IV Q12 [facility] Last Admin: 12/14/17 09:53 Dose: 20 mg Nystatin (Mycostatin Cream) 0 ea TOP TID [facility] Last Admin: 12/14/17 17:08 Dose: 1 applic - Labs Labs: 12/14/17 07:06 12/14/17 07:06 PT 11.0 SECONDS (9.7-12.2) 12/09/17 14:53 INR 1.0 12/09/17 14:53 APTT 32 SECONDS (21-34) 12/09/17 14:53 - Constitutional Appears: No Acute Distress, Chronically Ill - Head Exam Head Exam: ATRAUMATIC, NORMAL INSPECTION - Eye Exam Eye Exam: EOMI, Normal appearance - Neck Exam Additional comments: Trach in place - Respiratory Exam Respiratory Exam: Clear to Ausculation Bilateral, NORMAL BREATHING PATTERN - Cardiovascular Exam Cardiovascular Exam: REGULAR RHYTHM, +S1, +S2 - GI/Abdominal Exam GI & Abdominal Exam: Soft, Normal Bowel Sounds. 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 Dunlap COPD/ Emphysema, likely due to history of smoking 12/09 Solumedrol 20 mg IV q12h Duoneb RQ4H PRN Pneumonia: Hospital Acquired Pneumonia 12/09: Blood cultures 12/09: sputum culture from the tracheotomy Patient was in [facility] on Zosyn, was given vancomycin and Cefepime in ED Merrem started 12/09/[address] Diaz ID Consult: Dr. Diaz Pulm Consult: Dr. Dumont CHF with preserved ejection fraction 12/09: Lasix 20 IV BID Monitor I and Os, Daily weights Continue with Coreg and ARB if BP is ok CAD, history of stenting Continue with Plavix 75 Crestor ASA added Abdominal aneurysm Recently measuring 4.1 x 4.4 cm Stable at this time. History of hypertension Losartan Coreg History of diabetes mellitus Insulin SS Accucheck Q6H Hypoglycemic protocol s/p G tube insertion Tube feeds currently at 40cc/hr monitor for BM Prophylaxis Pepcid 20mg bid Lovenox 40mg sc daily SCDs Disposition: Pending insurance approval to return back to another rehab facility ([facility]) . Patient will be discharged with home medications and Cipro 500mg bid for 3 days; Prednisone taper (20mg daily for 3 days; 10mg daily for 3 days; 5 mg daily for 3 days). Case discussed with Dr. Angel Garcia PGY-1 <Kanu Ortiz - Last Filed: 12/15/17 16:24> Objective - Vital Signs/Intake and Output Vital Signs (last 24 hours): Temp Pulse Resp BP Pulse Ox 97.3 F L 57 L 20 160/85 H 95 12/15/17 09:08 12/15/17 12:00 12/15/17 09:08 12/15/17 09:31 12/15/17 09:08 Intake and Output: 12/15/17 12/15/17 06:59 18:59 Intake Total 520 Output Total 850 Balance -330 - Medications Medications: Current Medications Acetaminophen (Tylenol 325mg Tab) 650 mg PO Q6 PRN PRN Reason: Fever >100.4 F Albuterol/Ipratropium (Duoneb 3 Mg/0.5 Mg (3 Ml) Ud) 3 ml IH RQ4 [facility] Last Admin: 12/15/17 11:05 Dose: 3 ml Calcium Acetate (Phoslo) 667 mg PO BIDCC [facility] Last Admin: 12/15/17 08:22 Dose: 667 mg Carvedilol (Coreg) 3.125 mg PO BID [facility] Last Admin: 12/15/17 09:23 Dose: 3.125 mg Clopidogrel Bisulfate (Plavix) 75 mg PO DAILY [facility] Last Admin: 12/15/17 09:24 Dose: 75 mg Dextrose (Dextrose 50% Inj) 0 ml IV STAT PRN; Protocol PRN Reason: Hypoglycemia Protocol Dextrose (Glutose 15) 15 gm PO ONCE PRN; Protocol PRN Reason: Hypoglycemia Protocol Enoxaparin Sodium (Lovenox) 40 mg SC DAILY [facility] Last Admin: 12/15/17 09:24 Dose: 40 mg Famotidine (Pepcid) 20 mg GT BID [facility] Last Admin: 12/15/17 09:24 Dose: 20 mg Glucagon (Glucagen Diagnostic Kit) 1 mg IM STAT PRN; Protocol PRN Reason: Hypoglycemia Protocol Dextrose (Dextrose 5% In Water 1000 Ml) 1,000 mls @ 0 mls/hr IV .Q0M PRN; Protocol; Per Protocol PRN Reason: Hypoglycemia Protocol Meropenem 1 gm/ Sodium (Chloride) 100 mls @ 100 mls/hr IVPB Q8 [facility] PRN Reason: Protocol Last Admin: 12/15/17 14:28 Dose: 100 mls/hr Sodium Chloride (Sodium Chloride 0.9%) 500 mls @ 150 mls/hr IV .Q3H20M ONE Stop: 12/15/17 18:33 Insulin Human Regular (Novolin R) 0 unit SC ACHS [facility] PRN Reason: Protocol Last Admin: 12/15/17 12:28 Dose: 4 unit Losartan Potassium (Cozaar) 25 mg PO DAILY [facility] Last Admin: 12/15/17 09:24 Dose: 25 mg Methylprednisolone (Solu-Medrol) 20 mg IV Q12 [facility] Last Admin: 12/15/17 09:31 Dose: 20 mg Nystatin (Mycostatin Cream) 0 ea TOP TID [facility] Last Admin: 12/15/17 14:40 Dose: 1 applic - Labs Labs: 12/15/17 11:30 12/15/17 11:30 PT 11.0 SECONDS (9.7-12.2) 12/09/17 14:53 INR 1.0 12/09/17 14:53 APTT 32 SECONDS (21-34) 12/09/17 14:53 Attending/Attestation - Attestation I have personally seen and examined this patient.: Yes I have fully participated in the care of the patient.: Yes I have reviewed all pertinent clinical information, including history, physical exam and plan: Yes Notes (Text): Patient was seen and examined by me. Patient has no complain.lying comfortable, lungs clear Discussed with Dr Dumont Discussed with CW about discharge back to rehab.Pending insurance approval Patient will be discharged on cipro as per Dr diaz We will repeat chest x ray before discharge
--- NOTE | 2017-12-14 22:09 | CP.PCM.PN ---
Subjective - Date & Time of Evaluation Date of Evaluation: 12/14/17 Time of Evaluation: 03:15 - Subjective Subjective: dictated Objective - Vital Signs/Intake and Output Vital Signs (last 24 hours): Temp Pulse Resp BP Pulse Ox 97.6 F 61 22 156/79 H 97 12/14/17 16:00 12/14/17 20:15 12/14/17 16:00 12/14/17 16:00 12/14/17 16:00 Intake and Output: 12/14/17 12/15/17 18:59 06:59 Intake Total 420 Output Total 1100 Balance -680 - Medications Medications: Current Medications Acetaminophen (Tylenol 325mg Tab) 650 mg PO Q6 PRN PRN Reason: Fever >100.4 F Albuterol/Ipratropium (Duoneb 3 Mg/0.5 Mg (3 Ml) Ud) 3 ml IH RQ4 [facility] Last Admin: 12/14/17 19:34 Dose: 3 ml Calcium Acetate (Phoslo) 667 mg PO BIDCC [facility] Last Admin: 12/14/17 16:33 Dose: 667 mg Carvedilol (Coreg) 3.125 mg PO BID [facility] Last Admin: 12/14/17 17:06 Dose: 3.125 mg Clopidogrel Bisulfate (Plavix) 75 mg PO DAILY [facility] Last Admin: 12/14/17 09:41 Dose: 75 mg Dextrose (Dextrose 50% Inj) 0 ml IV STAT PRN; Protocol PRN Reason: Hypoglycemia Protocol Dextrose (Glutose 15) 15 gm PO ONCE PRN; Protocol PRN Reason: Hypoglycemia Protocol Enoxaparin Sodium (Lovenox) 40 mg SC DAILY [facility] Last Admin: 12/14/17 09:51 Dose: 40 mg Famotidine (Pepcid) 20 mg GT BID [facility] Last Admin: 12/14/17 17:06 Dose: 20 mg Furosemide (Lasix) 20 mg IVP DAILY [facility] Last Admin: 12/14/17 09:54 Dose: 20 mg Glucagon (Glucagen Diagnostic Kit) 1 mg IM STAT PRN; Protocol PRN Reason: Hypoglycemia Protocol Vancomycin/Sodium Chloride (Vancomycin 1 Gm/Ns 200 Ml) 1 gm in 200 mls @ 133 mls/hr IVPB Q24H [facility] PRN Reason: Protocol Stop: 12/15/17 18:01 Last Admin: 12/14/17 17:07 Dose: 133 mls/hr Dextrose (Dextrose 5% In Water 1000 Ml) 1,000 mls @ 0 mls/hr IV .Q0M PRN; Protocol; Per Protocol PRN Reason: Hypoglycemia Protocol Meropenem 1 gm/ Sodium (Chloride) 100 mls @ 100 mls/hr IVPB Q8 [facility] PRN Reason: Protocol Last Admin: 12/14/17 21:34 Dose: 100 mls/hr Insulin Human Regular (Novolin R) 0 unit SC ACHS [facility] PRN Reason: Protocol Last Admin: 12/14/17 21:35 Dose: Not Given Losartan Potassium (Cozaar) 25 mg PO DAILY [facility] Last Admin: 12/14/17 09:40 Dose: 25 mg Methylprednisolone (Solu-Medrol) 20 mg IV Q12 [facility] Last Admin: 12/14/17 21:46 Dose: 20 mg Nystatin (Mycostatin Cream) 0 ea TOP TID [facility] Last Admin: 12/14/17 17:08 Dose: 1 applic - Labs Labs: 12/14/17 07:06 12/14/17 07:06 PT 11.0 SECONDS (9.7-12.2) 12/09/17 14:53 INR 1.0 12/09/17 14:53 APTT 32 SECONDS (21-34) 12/09/17 14:53
--- NOTE | 2017-12-14 22:29 | CP.PCM.PN ---
Subjective - Date & Time of Evaluation Date of Evaluation: 12/13/17 Time of Evaluation: 18:20 - Subjective Subjective: No complaints. Objective - Vital Signs/Intake and Output Vital Signs (last 24 hours): Temp Pulse Resp BP Pulse Ox 97.6 F 61 22 156/79 H 97 12/14/17 16:00 12/14/17 20:15 12/14/17 16:00 12/14/17 16:00 12/14/17 16:00 Intake and Output: 12/14/17 12/15/17 18:59 06:59 Intake Total 420 Output Total 1100 Balance -680 - Medications Medications: Current Medications Acetaminophen (Tylenol 325mg Tab) 650 mg PO Q6 PRN PRN Reason: Fever >100.4 F Albuterol/Ipratropium (Duoneb 3 Mg/0.5 Mg (3 Ml) Ud) 3 ml IH RQ4 [facility] Last Admin: 12/14/17 19:34 Dose: 3 [facility] Last Admin: 12/14/17 16:33 Dose: 667 mg Carvedilol (Coreg) 3.125 mg PO BID [facility] Last Admin: 12/14/17 17:06 Dose: 3.125 mg Clopidogrel Bisulfate (Plavix) 75 mg PO DAILY [facility] Last Admin: 12/14/17 09:41 Dose: 75 mg Dextrose (Dextrose 50% Inj) 0 ml IV STAT PRN; Protocol PRN Reason: Hypoglycemia Protocol Dextrose (Glutose 15) 15 gm PO ONCE PRN; Protocol PRN Reason: Hypoglycemia Protocol Enoxaparin Sodium (Lovenox) 40 mg SC DAILY [facility] Last Admin: 12/14/17 09:51 Dose: 40 mg Famotidine (Pepcid) 20 mg GT BID [facility] Last Admin: 12/14/17 17:06 Dose: 20 mg Furosemide (Lasix) 20 mg IVP DAILY [facility] Last Admin: 12/14/17 09:54 Dose: 20 mg Glucagon (Glucagen Diagnostic Kit) 1 mg IM STAT PRN; Protocol PRN Reason: Hypoglycemia Protocol Vancomycin/Sodium Chloride (Vancomycin 1 Gm/Ns 200 Ml) 1 gm in 200 mls @ 133 mls/hr IVPB Q24H [facility] PRN Reason: Protocol Stop: 12/15/17 18:01 Last Admin: 12/14/17 17:07 Dose: 133 mls/hr Dextrose (Dextrose 5% In Water 1000 Ml) 1,000 mls @ 0 mls/hr IV .Q0M PRN; Protocol; Per Protocol PRN Reason: Hypoglycemia Protocol Meropenem 1 gm/ Sodium (Chloride) 100 mls @ 100 mls/hr IVPB Q8 [facility] PRN Reason: Protocol Last Admin: 12/14/17 21:34 Dose: 100 mls/hr Insulin Human Regular (Novolin R) 0 unit SC ACHS [facility] PRN Reason: Protocol Last Admin: 12/14/17 21:35 Dose: Not Given Losartan Potassium (Cozaar) 25 mg PO DAILY [facility] Last Admin: 12/14/17 09:40 Dose: 25 mg Methylprednisolone (Solu-Medrol) 20 mg IV Q12 [facility] Last Admin: 12/14/17 21:46 Dose: 20 mg Nystatin (Mycostatin Cream) 0 ea TOP TID [facility] Last Admin: 12/14/17 17:08 Dose: 1 applic - Labs Labs: 12/14/17 07:06 12/14/17 07:06 PT 11.0 SECONDS (9.7-12.2) 12/09/17 14:53 INR 1.0 12/09/17 14:53 APTT 32 SECONDS (21-34) 12/09/17 14:53 - Head Exam Head Exam: ATRAUMATIC - Eye Exam Eye Exam: Normal appearance - ENT Exam ENT Exam: Mucous Membranes Dry - Respiratory Exam Respiratory Exam: NORMAL BREATHING PATTERN - Cardiovascular Exam Cardiovascular Exam: +S1, +S2 - GI/Abdominal Exam GI & Abdominal Exam: Normal Bowel Sounds Assessment and Plan (1) Laryngeal squamous cell carcinoma Assessment & Plan: with bilateral cervical lymph node metastasis s/p airway compromise requiring emergent tracheostomy pt is debilitated and currently not a treatment candidate Status: Acute
--- NOTE | 2017-12-14 22:30 | CP.PCM.PN ---
Subjective - Date & Time of Evaluation Date of Evaluation: 12/14/17 Time of Evaluation: 15:00 - Subjective Subjective: No complaints Objective - Vital Signs/Intake and Output Vital Signs (last 24 hours): Temp Pulse Resp BP Pulse Ox 97.6 F 61 22 156/79 H 97 12/14/17 16:00 12/14/17 20:15 12/14/17 16:00 12/14/17 16:00 12/14/17 16:00 Intake and Output: 12/14/17 12/15/17 18:59 06:59 Intake Total 420 Output Total 1100 Balance -680 - Medications Medications: Current Medications Acetaminophen (Tylenol 325mg Tab) 650 mg PO Q6 PRN PRN Reason: Fever >100.4 F Albuterol/Ipratropium (Duoneb 3 Mg/0.5 Mg (3 Ml) Ud) 3 ml IH RQ4 [facility] Last Admin: 12/14/17 19:34 Dose: 3 ml [facility] Last Admin: 12/14/17 16:33 Dose: 667 mg Carvedilol (Coreg) 3.125 mg PO BID [facility] Last Admin: 12/14/17 17:06 Dose: 3.125 mg Clopidogrel Bisulfate (Plavix) 75 mg PO DAILY [facility] Last Admin: 12/14/17 09:41 Dose: 75 mg Dextrose (Dextrose 50% Inj) 0 ml IV STAT PRN; Protocol PRN Reason: Hypoglycemia Protocol Dextrose (Glutose 15) 15 gm PO ONCE PRN; Protocol PRN Reason: Hypoglycemia Protocol Enoxaparin Sodium (Lovenox) 40 mg SC DAILY [facility] Last Admin: 12/14/17 09:51 Dose: 40 mg Famotidine (Pepcid) 20 mg GT BID [facility] Last Admin: 12/14/17 17:06 Dose: 20 mg Furosemide (Lasix) 20 mg IVP DAILY [facility] Last Admin: 12/14/17 09:54 Dose: 20 mg Glucagon (Glucagen Diagnostic Kit) 1 mg IM STAT PRN; Protocol PRN Reason: Hypoglycemia Protocol Vancomycin/Sodium Chloride (Vancomycin 1 Gm/Ns 200 Ml) 1 gm in 200 mls @ 133 mls/hr IVPB Q24H [facility] PRN Reason: Protocol Stop: 12/15/17 18:01 Last Admin: 12/14/17 17:07 Dose: 133 mls/hr Dextrose (Dextrose 5% In Water 1000 Ml) 1,000 mls @ 0 mls/hr IV .Q0M PRN; Protocol; Per Protocol PRN Reason: Hypoglycemia Protocol Meropenem 1 gm/ Sodium (Chloride) 100 mls @ 100 mls/hr IVPB Q8 [facility] PRN Reason: Protocol Last Admin: 12/14/17 21:34 Dose: 100 mls/hr Insulin Human Regular (Novolin R) 0 unit SC ACHS [facility] PRN Reason: Protocol Last Admin: 12/14/17 21:35 Dose: Not Given Losartan Potassium (Cozaar) 25 mg PO DAILY [facility] Last Admin: 12/14/17 09:40 Dose: 25 mg Methylprednisolone (Solu-Medrol) 20 mg IV Q12 [facility] Last Admin: 12/14/17 21:46 Dose: 20 mg Nystatin (Mycostatin Cream) 0 ea TOP TID [facility] Last Admin: 12/14/17 17:08 Dose: 1 applic - Labs Labs: 12/14/17 07:06 12/14/17 07:06 PT 11.0 SECONDS (9.7-12.2) 12/09/17 14:53 INR 1.0 12/09/17 14:53 APTT 32 SECONDS (21-34) 12/09/17 14:53 - Head Exam Head Exam: ATRAUMATIC - Eye Exam Eye Exam: Normal appearance - ENT Exam ENT Exam: Mucous Membranes Dry - Respiratory Exam Respiratory Exam: NORMAL BREATHING PATTERN - Cardiovascular Exam Cardiovascular Exam: +S1, +S2 - GI/Abdominal Exam GI & Abdominal Exam: Normal Bowel Sounds Assessment and Plan (1) Laryngeal squamous cell carcinoma Assessment & Plan: with bilateral cervical lymph node metastasis s/p airway compromise requiring emergent tracheostomy pt is debilitated and currently not a treatment candidate Status: Acute
[2017-12-15] MEDS: Albuterol-Ipratrop 3 mg / 0.5 (3 ml) UD IH SCH ×7 (00:10→23:49)
--- NOTE | 2017-12-15 02:46 | PN ---
DATE: 12/14/2017 SUBJECTIVE: The patient was with a trach, Ventimask now, and she was having some shortness of breath. She said she would not like to go back as she was not feeling right today, she was off the vent. PHYSICAL EXAMINATION: VITAL SIGNS: T-max 97.6, pulse 69, respirations 20, blood pressure is 156/79, saturation 97%. She is still on IV antibiotics. HEENT: Head is atraumatic. Trach site appears unremarkable. NECK: Supple. LUNGS: Bilateral rhonchi today. HEART: S1 and S2 is regular. ABDOMEN: Soft, nontender. No guarding, no rigidity present. EXTREMITIES: Had no edema. ASSESSMENT AND PLAN: She is status post tracheostomy with pneumonia, hospital acquired, she was here not too long ago, and she is on vancomycin and cefepime, and we gave Merrem because she had Enterobacter in the sputum from 12/06/2017, and Pulmonary is also following. She also has squamous laryngeal cancer with lymph node metastasis and chronic obstructive pulmonary disease, emphysema, she has congestive heart failure with preserved ejection fraction, coronary artery disease, also has recently abdominal aneurysm, hypertension, diabetes mellitus. Plan is to get her to rehab and to give her Cipro for next 3 days, but if she continues to be here then I just wanted to give antibiotics for a total of 7 days, unless her condition changes from the time of her admission this time 12/09/2017 onwards as she was recently in the hospital too and did get antibiotics before. Chanel Alamo MD
[2017-12-15] MEDS: Meropenem 1 GM in Sodium Chloride 0.9% 100 ML IVPB SCH ×3 (05:32→22:29)
[2017-12-15] MEDS: (Novolin R) Insulin Human Regular 100 units/ml vial SC SCH ×4 (08:22→22:32)
[2017-12-15] MEDS: Enoxaparin 40 mg Syringe SC SCH (09:24)
[2017-12-15] MEDS: Nystatin 100,000 Units/gm Cream(15 gm) TOP SCH ×3 (09:25→18:14)
--- NOTE | 2017-12-15 11:12 | RAD ---
PROCEDURE: CHEST RADIOGRAPH, 1 VIEW HISTORY: sob/follow up COMPARISON: 12/12/2017 FINDINGS: LUNGS: Probable subsegmental atelectasis at right lung base. No acute infiltrate. PLEURA: Minimal blunting left costophrenic angle possibly reflecting small pleural effusion. No pneumothorax. CARDIOVASCULAR: Normal heart size. Tracheostomy tube. No congestive change. OSSEOUS STRUCTURES: No significant abnormalities. VISUALIZED UPPER ABDOMEN: Normal. OTHER FINDINGS: None. IMPRESSION: Right basilar subsegmental atelectasis. Possible small left pleural effusion. Tracheostomy tube.
[2017-12-15 11:34] LABS: BASO % 0.1 % (0.0-2.0); EOS % 0.1 % (0.0-4.0); HEMOGLOBIN 11.7 g/dL (11.0-16.0); LYMPH # 0.9 K/uL (1.0-4.3); LYMPH % 11.9 % (20.0-40.0); MEAN CELL VOLUME 84.6 fL (81.0-99.0); MEAN CORPUSCULAR HEMOGLOBIN 29.3 pg (27.0-31.0); MEAN CORPUSCULAR HGB CONC 34.7 g/dL (33.0-37.0); MEAN PLATELET VOLUME 7.9 fL (7.2-11.7); MONO % 13.3 % (0.0-10.0); NEUT # 5.4 K/uL (1.8-7.0); NEUT % 74.6 % (50.0-75.0); NRBC % 0.1 % (0.0-2.0); RED CELL DISTRIBUTION WIDTH 15.9 % (11.5-14.5); WHITE BLOOD COUNT 7.2 K/uL (4.8-10.8)
[2017-12-15 12:02] LABS: ALB/GLOB RATIO 1.1 (1.0-2.1); ALBUMIN 2.7 g/dL (3.5-5.0); ALT/SGPT 44 U/L (9-52); AST/SGOT 28 U/L (14-36); BLOOD UREA NITROGEN 32 mg/dL (7-17); CALCIUM 8.6 mg/dl (8.6-10.4); GFR AFRICAN-AMERICAN > 60; GFR NON-AFRICAN AMERICAN > 60
[2017-12-15 12:31] LABS: ABG ALLEN TEST PO; ARTERIAL BLOOD GAS HCO3 36.3 mmol/L (21-28); ARTERIAL BLOOD GAS HEMOGLOBIN 12.3 g/dL (11.7-17.4); ARTERIAL BLOOD GAS PCO2 47 mm/Hg (35-45); ARTERIAL BLOOD GAS PH 7.53 (7.35-7.45); ARTERIAL BLOOD GAS PO2 64 mm/Hg (80-100); ARTERIAL BLOOD GAS TCO2 40.7 mmol/L (22-28)
--- NOTE | 2017-12-15 14:21 | CP.PCM.PN ---
Subjective - Date & Time of Evaluation Date of Evaluation: 12/15/17 Time of Evaluation: 02:00 - Subjective Subjective: dictated Objective - Vital Signs/Intake and Output Vital Signs (last 24 hours): Temp Pulse Resp BP Pulse Ox 97.3 F L 57 L 20 160/85 H 95 12/15/17 09:08 12/15/17 12:00 12/15/17 09:08 12/15/17 09:31 12/15/17 09:08 Intake and Output: 12/15/17 12/15/17 06:59 18:59 Intake Total 520 Output Total 850 Balance -330 - Medications Medications: Current Medications Acetaminophen (Tylenol 325mg Tab) 650 mg PO Q6 PRN PRN Reason: Fever >100.4 F Albuterol/Ipratropium (Duoneb 3 Mg/0.5 Mg (3 Ml) Ud) 3 ml IH RQ4 [facility] Last Admin: 12/15/17 11:05 Dose: 3 ml Calcium Acetate (Phoslo) 667 mg PO BIDCC [facility] Last Admin: 12/15/17 08:22 Dose: 667 mg Carvedilol (Coreg) 3.125 mg PO BID [facility] Last Admin: 12/15/17 09:23 Dose: 3.125 mg Clopidogrel Bisulfate (Plavix) 75 mg PO DAILY [facility] Last Admin: 12/15/17 09:24 Dose: 75 mg Dextrose (Dextrose 50% Inj) 0 ml IV STAT PRN; Protocol PRN Reason: Hypoglycemia Protocol Dextrose (Glutose 15) 15 gm PO ONCE PRN; Protocol PRN Reason: Hypoglycemia Protocol Enoxaparin Sodium (Lovenox) 40 mg SC DAILY [facility] Last Admin: 12/15/17 09:24 Dose: 40 mg Famotidine (Pepcid) 20 mg GT BID [facility] Last Admin: 12/15/17 09:24 Dose: 20 mg Furosemide (Lasix) 20 mg IVP DAILY [facility] Last Admin: 12/15/17 09:31 Dose: 20 mg Glucagon (Glucagen Diagnostic Kit) 1 mg IM STAT PRN; Protocol PRN Reason: Hypoglycemia Protocol Dextrose (Dextrose 5% In Water 1000 Ml) 1,000 mls @ 0 mls/hr IV .Q0M PRN; Protocol; Per Protocol PRN Reason: Hypoglycemia Protocol Meropenem 1 gm/ Sodium (Chloride) 100 mls @ 100 mls/hr IVPB Q8 [facility] PRN Reason: Protocol Last Admin: 12/15/17 05:32 Dose: 100 mls/hr Insulin Human Regular (Novolin R) 0 unit SC ACHS [facility] PRN Reason: Protocol Last Admin: 12/15/17 12:28 Dose: 4 unit Losartan Potassium (Cozaar) 25 mg PO DAILY [facility] Last Admin: 12/15/17 09:24 Dose: 25 mg Methylprednisolone (Solu-Medrol) 20 mg IV Q12 [facility] Last Admin: 12/15/17 09:31 Dose: 20 mg Nystatin (Mycostatin Cream) 0 ea TOP TID [facility] Last Admin: 12/15/17 09:25 Dose: 1 applic - Labs Labs: 12/15/17 11:30 12/15/17 11:30 PT 11.0 SECONDS (9.7-12.2) 12/09/17 14:53 INR 1.0 12/09/17 14:53 APTT 32 SECONDS (21-34) 12/09/17 14:53
[2017-12-15] MEDS ORDERED: Sodium Chloride 0.9% 500 ML IV ONE (15:14)
--- NOTE | 2017-12-15 16:42 | CP.PCM.PN ---
Subjective - Date & Time of Evaluation Date of Evaluation: 12/15/17 Time of Evaluation: 10:00 - Subjective Subjective: Patient seen today and examined at bedside. Patient seen sitting up in chair at 90 degrees and resting comfortably. Patient in no apparent respiratory distress and states she feels "about the same," but with reduced cough. However, CO2 was found to be critically elevated at 40 mmol/L. ABG subsequently performed and revealed compensated metabolic alkalosis. Although patient is not ill-appearing from a respiratory standpoint, will continue as consult service for now. Patient denies chest pain/palpitations and states secretions from the tracheostomy are improved. Assessment/Plan 1. Pneumonia Patient currently afebrile without leukocytosis. CXR from today showed small left pleural effusion and right basilar subsegmental atelectasis, which seems improved from last CXR on 12/12. Continue medications per ID recommendations and monitor for signs/symptoms of delirium. 2. Metabolic alkalosis ABG shows elevated pH of 7.53, elevated PCO2 of 47 and electrolytes show hypokalemia with K+ = 3.5. Possible side effect of Lasix; Recommend 500 cc fluid bolus prior to discharge and Medicine team will hold Lasix. 3. Laryngeal squamous cell carcinoma Patient not currently a treatable candidate per Oncology. 4. COPD Clinically stable. Continue breathing treatments and taper Solu-medrol. Objective - Vital Signs/Intake and Output Vital Signs (last 24 hours): Temp Pulse Resp BP Pulse Ox 98.1 F 67 18 161/84 H 99 12/15/17 15:00 12/15/17 15:00 12/15/17 15:00 12/15/17 15:00 12/15/17 15:00 Intake and Output: 12/15/17 12/15/17 06:59 18:59 Intake Total 520 420 Output Total 850 1100 Balance -330 -680 - Medications Medications: Current Medications Acetaminophen (Tylenol 325mg Tab) 650 mg PO Q6 PRN PRN Reason: Fever >100.4 F Albuterol/Ipratropium (Duoneb 3 Mg/0.5 Mg (3 Ml) Ud) 3 ml IH RQ4 [facility] Last Admin: 12/15/17 11:05 Dose: 3 ml Calcium Acetate (Phoslo) 667 mg PO BIDCC [facility] Last Admin: 12/15/17 08:22 Dose: 667 mg Carvedilol (Coreg) 3.125 mg PO BID [facility] Last Admin: 12/15/17 09:23 Dose: 3.125 mg Clopidogrel Bisulfate (Plavix) 75 mg PO DAILY [facility] Last Admin: 12/15/17 09:24 Dose: 75 mg Dextrose (Dextrose 50% Inj) 0 ml IV STAT PRN; Protocol PRN Reason: Hypoglycemia Protocol Dextrose (Glutose 15) 15 gm PO ONCE PRN; Protocol PRN Reason: Hypoglycemia Protocol Enoxaparin Sodium (Lovenox) 40 mg SC DAILY [facility] Last Admin: 12/15/17 09:24 Dose: 40 mg Famotidine (Pepcid) 20 mg GT BID [facility] Last Admin: 12/15/17 09:24 Dose: 20 mg Glucagon (Glucagen Diagnostic Kit) 1 mg IM STAT PRN; Protocol PRN Reason: Hypoglycemia Protocol Dextrose (Dextrose 5% In Water 1000 Ml) 1,000 mls @ 0 mls/hr IV .Q0M PRN; Protocol; Per Protocol PRN Reason: Hypoglycemia Protocol Meropenem 1 gm/ Sodium (Chloride) 100 mls @ 100 mls/hr IVPB Q8 [facility] PRN Reason: Protocol Last Admin: 12/15/17 14:28 Dose: 100 mls/hr Sodium Chloride (Sodium Chloride 0.9%) 500 mls @ 150 mls/hr IV .Q3H20M ONE Stop: 12/15/17 18:33 Insulin Human Regular (Novolin R) 0 unit SC ACHS [facility] PRN Reason: Protocol Last Admin: 12/15/17 12:28 Dose: 4 unit Losartan Potassium (Cozaar) 25 mg PO DAILY [facility] Last Admin: 12/15/17 09:24 Dose: 25 mg Methylprednisolone (Solu-Medrol) 20 mg IV Q12 [facility] Last Admin: 12/15/17 09:31 Dose: 20 mg Nystatin (Mycostatin Cream) 0 ea TOP TID [facility] Last Admin: 12/15/17 14:40 Dose: 1 applic - Labs Labs: 12/15/17 11:30 12/15/17 11:30 PT 11.0 SECONDS (9.7-12.2) 12/09/17 14:53 INR 1.0 12/09/17 14:53 APTT 32 SECONDS (21-34) 12/09/17 14:53 Assessment and Plan (1) Pneumonia Status: Acute (2) Laryngeal squamous cell carcinoma Status: Acute (3) COPD (chronic obstructive pulmonary disease) Status: Acute
--- NOTE | 2017-12-15 18:47 | CP.PCM.PN ---
<Gi Garcia - Last Filed: 12/15/17 19:06> Subjective - Date & Time of Evaluation Date of Evaluation: 12/15/17 Time of Evaluation: 07:00 - Subjective Subjective: Medicine Progress Note: Patient seen and examined at bedside in the AM. Per primary nurse, no acute events overnight. Patient denies any new complaints today. Patient reports PT will be coming today to work with her. Denies fevers/chills, chest pain, shortness of breath, abdominal pain, nausea, vomiting. Objective - Vital Signs/Intake and Output Vital Signs (last 24 hours): Temp Pulse Resp BP Pulse Ox 98.1 F 67 18 161/84 H 99 12/15/17 15:00 12/15/17 15:00 12/15/17 15:00 12/15/17 15:00 12/15/17 15:00 Intake and Output: 12/15/17 12/15/17 06:59 18:59 Intake Total 520 420 Output Total 850 1100 Balance -330 -680 - Medications Medications: Current Medications Acetaminophen (Tylenol 325mg Tab) 650 mg PO Q6 PRN PRN Reason: Fever >100.4 F Albuterol/Ipratropium (Duoneb 3 Mg/0.5 Mg (3 Ml) Ud) 3 ml IH RQ4 [facility] Last Admin: 12/15/17 16:51 Dose: 3 ml [facility] Last Admin: 12/15/17 18:14 Dose: 667 mg Carvedilol (Coreg) 3.125 mg PO BID [facility] Last Admin: 12/15/17 18:13 Dose: 3.125 mg Clopidogrel Bisulfate (Plavix) 75 mg PO DAILY [facility] Last Admin: 12/15/17 09:24 Dose: 75 mg Dextrose (Dextrose 50% Inj) 0 ml IV STAT PRN; Protocol PRN Reason: Hypoglycemia Protocol Dextrose (Glutose 15) 15 gm PO ONCE PRN; Protocol PRN Reason: Hypoglycemia Protocol Enoxaparin Sodium (Lovenox) 40 mg SC DAILY [facility] Last Admin: 12/15/17 09:24 Dose: 40 mg Famotidine (Pepcid) 20 mg GT BID [facility] Last Admin: 12/15/17 18:14 Dose: 20 mg Glucagon (Glucagen Diagnostic Kit) 1 mg IM STAT PRN; Protocol PRN Reason: Hypoglycemia Protocol Dextrose (Dextrose 5% In Water 1000 Ml) 1,000 mls @ 0 mls/hr IV .Q0M PRN; Protocol; Per Protocol PRN Reason: Hypoglycemia Protocol Meropenem 1 gm/ Sodium (Chloride) 100 mls @ 100 mls/hr IVPB Q8 [facility] PRN Reason: Protocol Last Admin: 12/15/17 14:28 Dose: 100 mls/hr Insulin Human Regular (Novolin R) 0 unit SC ACHS [facility] PRN Reason: Protocol Last Admin: 12/15/17 18:18 Dose: 4 unit Losartan Potassium (Cozaar) 25 mg PO DAILY [facility] Last Admin: 12/15/17 09:24 Dose: 25 mg Methylprednisolone (Solu-Medrol) 20 mg IV Q12 [facility] Last Admin: 12/15/17 09:31 Dose: 20 mg Nystatin (Mycostatin Cream) 0 ea TOP TID [facility] Last Admin: 12/15/17 18:14 Dose: 1 applic - Labs Labs: 12/15/17 11:30 12/15/17 11:30 PT 11.0 SECONDS (9.7-12.2) 12/09/17 14:53 INR 1.0 12/09/17 14:53 APTT 32 SECONDS (21-34) 12/09/17 14:53 - Constitutional Appears: No Acute Distress, Chronically Ill - Head Exam Head Exam: ATRAUMATIC, NORMAL INSPECTION - Eye Exam Eye Exam: EOMI, Normal appearance - ENT Exam Additional comments: Trach in place - Respiratory Exam Respiratory Exam: Clear to Ausculation Bilateral, NORMAL BREATHING PATTERN - Cardiovascular Exam Cardiovascular Exam: REGULAR RHYTHM, +S1, +S2 - GI/Abdominal Exam GI & Abdominal Exam: Soft, Normal Bowel Sounds. 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 Dunlap COPD/ Emphysema, likely due to history of smoking 12/09 Solumedrol 20 mg IV q12h Duoneb RQ4H PRN Pneumonia: Hospital Acquired Pneumonia 12/09: Blood cultures 12/09: sputum culture from the tracheotomy Patient was in [facility] on Zosyn, was given vancomycin and Cefepime in ED Merrem started 12/09/[address] Alamo ID Consult: Dr. Alamo Pulm Consult: Dr. Dumont CHF with preserved ejection fraction 12/09: Lasix 20 IV BID --> discontinued 12/15/17 Monitor I and Os, Daily weights Continue with Coreg and ARB if BP is ok CAD, history of stenting Plavix 75mg daily Crestor 10mg HS ASA 81mg daily Abdominal aneurysm Recently measuring 4.1 x 4.4 cm Stable at this time. History of hypertension Losartan 25mg po daily Coreg 3.125mg bid History of diabetes mellitus Insulin SS Accucheck Q6H Hypoglycemic protocol s/p G tube insertion Tube feeds currently at 40cc/hr monitor for BM Prophylaxis Pepcid 20mg bid Lovenox 40mg sc daily [facility] Disposition: Pending insurance approval to return back to another rehab facility ([facility]) . Patient will be discharged with home medications and Cipro 500mg bid for 3 days; Prednisone taper (20mg daily for 3 days; 10mg daily for 3 days; 5 mg daily for 3 days). Case discussed with Dr. Angel Garcia PGY-1 <Kanu Ortiz - Last Filed: 12/21/17 08:28> Objective - Vital Signs/Intake and Output Vital Signs (last 24 hours): Temp Pulse Resp BP Pulse Ox 98.8 F 71 20 156/82 H 100 12/16/17 17:13 12/16/17 17:13 12/16/17 17:13 12/16/17 17:13 12/16/17 17:13 - Labs Labs: 12/15/17 11:30 12/15/17 11:30 PT 11.0 SECONDS (9.7-12.2) 12/09/17 14:53 INR 1.0 12/09/17 14:53 APTT 32 SECONDS (21-34) 12/09/17 14:53 Attending/Attestation - Attestation I have personally seen and examined this patient.: Yes I have fully participated in the care of the patient.: Yes I have reviewed all pertinent clinical information, including history, physical exam and plan: Yes Notes (Text): Seen and examined by me,no complain Discussed withe the resident. I agree with the documentation Pending discharge
[2017-12-16 01:20] VITALS: RESP 20
--- NOTE | 2017-12-16 02:07 | PN ---
DATE: 12/15/2017 SUBJECTIVE: The patient was seen today. Her daughter was at the bedside. She has a trach collar. She is off the vent but was very dyspneic yesterday, and apparently, was feeling the same way today. Her bowel was a little better but she remains with trach mask at this time, and she had very little secretions today. PHYSICAL EXAMINATION: LUNGS: With bilateral rhonchi and occasional wheeze. HEART: S1, S2 is regular. ABDOMEN: Soft, nontender. No guarding, no rigidity present. EXTREMITIES: Have no edema. According to the patient, the patient is being followed by Pulmonary for pneumonia, and I did not find any. I have discontinued vancomycin as MRSA was negative in the nasal passages as well as other cultures, and sputum was no growth, and we will continue with the Merrem at this time until we make her stable, and I do see that there is no plan for any chemotherapy per Oncology. We will wait and decide for the further plan and to make her stable with respiratory treatment and with IV antibiotics at this time. Chanel Alamo MD
[2017-12-16] MEDS: Albuterol-Ipratrop 3 mg / 0.5 (3 ml) UD IH SCH ×3 (04:29→11:12)
[2017-12-16] MEDS: Meropenem 1 GM in Sodium Chloride 0.9% 100 ML IVPB SCH ×2 (05:41→14:05)
[2017-12-16] MEDS: (Novolin R) Insulin Human Regular 100 units/ml vial SC SCH ×3 (08:30→17:48)
[2017-12-16 08:32] VITALS: O2SAT 100
[2017-12-16] MEDS: Enoxaparin 40 mg Syringe SC SCH (09:36)
[2017-12-16] MEDS: Nystatin 100,000 Units/gm Cream(15 gm) TOP SCH ×3 (09:38→17:56)
--- NOTE | 2017-12-16 15:46 | CP.PCM.PN ---
Subjective - Date & Time of Evaluation Date of Evaluation: 12/16/17 Time of Evaluation: 07:00 - Subjective Subjective: Medicine Progress Note: Patient seen and examined at bedside in the AM. Per primary nurse, no acute events overnight. Patient denies any new complaints today. Patient reports PT will be coming today to work with her. Denies fevers/chills, chest pain, shortness of breath, abdominal pain, nausea, vomiting. Objective - Vital Signs/Intake and Output Vital Signs (last 24 hours): Temp Pulse Resp BP Pulse Ox 97.3 F L 66 20 145/76 100 12/16/17 08:30 12/16/17 08:30 12/16/17 08:30 12/16/17 08:30 12/16/17 08:30 Intake and Output: 12/16/17 12/16/17 06:59 18:59 Intake Total 600 Output Total 750 300 Balance -150 -300 - Medications Medications: Current Medications Acetaminophen (Tylenol 325mg Tab) 650 mg PO Q6 PRN PRN Reason: Fever >100.4 F Albuterol/Ipratropium (Duoneb 3 Mg/0.5 Mg (3 Ml) Ud) 3 ml IH RQ4 [facility] Last Admin: 12/16/17 11:12 Dose: 3 ml Aspirin (Aspirin Chewable) 81 mg PEG DAILY [facility] Last Admin: 12/16/17 09:36 Dose: 81 mg [facility] Last Admin: 12/16/17 08:30 Dose: 667 mg Carvedilol (Coreg) 3.125 mg PO BID [facility] Last Admin: 12/16/17 09:37 Dose: 3.125 mg Clopidogrel Bisulfate (Plavix) 75 mg PO DAILY [facility] Last Admin: 12/16/17 09:37 Dose: 75 mg Dextrose (Dextrose 50% Inj) 0 ml IV STAT PRN; Protocol PRN Reason: Hypoglycemia Protocol Dextrose (Glutose 15) 15 gm PO ONCE PRN; Protocol PRN Reason: Hypoglycemia Protocol Enoxaparin Sodium (Lovenox) 40 mg SC DAILY [facility] Last Admin: 12/16/17 09:36 Dose: 40 mg Famotidine (Pepcid) 20 mg GT BID [facility] Last Admin: 12/16/17 09:36 Dose: 20 mg Glucagon (Glucagen Diagnostic Kit) 1 mg IM STAT PRN; Protocol PRN Reason: Hypoglycemia Protocol Dextrose (Dextrose 5% In Water 1000 Ml) 1,000 mls @ 0 mls/hr IV .Q0M PRN; Protocol; Per Protocol PRN Reason: Hypoglycemia Protocol Meropenem 1 gm/ Sodium (Chloride) 100 mls @ 100 mls/hr IVPB Q8 [facility] PRN Reason: Protocol Last Admin: 12/16/17 14:05 Dose: 100 mls/hr Insulin Human Regular (Novolin R) 0 unit SC ACHS [facility] PRN Reason: Protocol Last Admin: 12/16/17 12:15 Dose: 6 unit Losartan Potassium (Cozaar) 25 mg PO DAILY [facility] Last Admin: 12/16/17 09:37 Dose: 25 mg Methylprednisolone (Solu-Medrol) 20 mg IV Q12 [facility] Last Admin: 12/16/17 09:35 Dose: 20 mg Nystatin (Mycostatin Cream) 0 ea TOP TID [facility] Last Admin: 12/16/17 14:06 Dose: 1 applic Rosuvastatin Calcium (Crestor) 10 mg PEG HS [facility] Last Admin: 12/15/17 22:28 Dose: 10 mg - Labs Labs: 12/15/17 11:30 12/15/17 11:30 PT 11.0 SECONDS (9.7-12.2) 12/09/17 14:53 INR 1.0 12/09/17 14:53 APTT 32 SECONDS (21-34) 12/09/17 14:53 - Constitutional Appears: No Acute Distress, Chronically Ill - Head Exam Head Exam: ATRAUMATIC, NORMAL INSPECTION - Eye Exam Eye Exam: EOMI, Normal appearance. absent: Scleral icterus - ENT Exam ENT Exam: Mucous Membranes Moist - Neck Exam Additional comments: Trach in place - Respiratory Exam Respiratory Exam: NORMAL BREATHING PATTERN - Cardiovascular Exam Cardiovascular Exam: REGULAR RHYTHM, +S1, +S2 - GI/Abdominal Exam GI & Abdominal Exam: Soft, Normal Bowel Sounds. 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 Dunlap COPD/ Emphysema, likely due to history of smoking 12/09 Solumedrol 20 mg IV q12h Duoneb RQ4H PRN Pneumonia: Hospital Acquired Pneumonia 12/09: Blood cultures 12/09: sputum culture from the tracheotomy Patient was in [facility] on Zosyn, was given vancomycin and Cefepime in ED Merrem started 12/09/[address] Alamo ID Consult: Dr. Alamo Pulm Consult: Dr. Dumont CHF with preserved ejection fraction 12/09: Lasix 20 IV BID --> discontinued 12/15/17 Monitor I and Os, Daily weights Continue with Coreg and ARB if BP is ok CAD, history of stenting Plavix 75mg daily Crestor 10mg HS ASA 81mg daily Abdominal aneurysm Recently measuring 4.1 x 4.4 cm Stable at this time. History of hypertension Losartan 25mg po daily Coreg 3.125mg bid History of diabetes mellitus Insulin SS Accucheck Q6H Hypoglycemic protocol s/p G tube insertion Tube feeds currently at 40cc/hr monitor for BM Prophylaxis Pepcid 20mg bid Lovenox 40mg sc daily [facility] Disposition: Pending insurance approval to return back to another rehab facility ([facility]) . Patient will be discharged with home medications and Cipro 500mg bid for 3 days; Prednisone taper (20mg daily for 3 days; 10mg daily for 3 days; 5 mg daily for 3 days). Case discussed with Dr. Angel Garcia PGY-1
--- NOTE | 2017-12-16 16:31 | CP.PCM.DIS ---
Provider - Provider Date of Admission: 12/09/17 14:53 Attending physician: Kanu Ortiz MD Time Spent in preparation of Discharge (in minutes): 40 Hospital Course - Lab Results Lab Results: Micro Results 12/09/17 16:39 Blood Blood Culture - Final NO GROWTH AFTER 5 DAYS 12/09/17 16:39 Blood Gram Stain - Final TEST NOT PERFORMED 12/09/17 15:57 Blood Blood Culture - Final NO GROWTH AFTER 5 DAYS 12/09/17 15:57 Blood Gram Stain - Final TEST NOT PERFORMED 12/12/17 06:43 Naris MRSA Culture - Final MRSA NOT DETECTED 12/09/17 09:00 Trachasp Gram Stain - Final 12/09/17 09:00 Trachasp Sputum Culture - Final No growth. 12/09/17 22:46 Urine,Garcia Urine Culture - Final No Growth (<1,000 CFU/ML) 12/09/17 Unknown Naris MRSA Culture (Admit) - Final MRSA NOT DETECTED Most Recent Lab Values WBC 7.2 K/uL (4.8-10.8) 12/15/17 11:30 RBC 4.00 Mil/uL (3.80-5.20) 12/15/17 11:30 Hgb 11.7 g/dL (11.0-16.0) 12/15/17 11:30 Hct 33.8 % (34.0-47.0) L 12/15/17 11:30 MCV 84.6 fL (81.0-99.0) 12/15/17 11:30 MCH 29.3 pg (27.0-31.0) 12/15/17 11:30 MCHC 34.7 g/dL (33.0-37.0) 12/15/17 11:30 RDW 15.9 % (11.5-14.5) H 12/15/17 11:30 Plt Count 240 K/uL (130-400) 12/15/17 11:30 MPV 7.9 fL (7.2-11.7) 12/15/17 11:30 Neut % (Auto) 74.6 % (50.0-75.0) 12/15/17 11:30 Lymph % (Auto) 11.9 % (20.0-40.0) L 12/15/17 11:30 Wilbarger % (Auto) 13.3 % (0.0-10.0) H 12/15/17 11:30 Eos % (Auto) 0.1 % (0.0-4.0) 12/15/17 11:30 Baso % (Auto) 0.1 % (0.0-2.0) 12/15/17 11:30 Neut # (Auto) 5.4 K/uL (1.8-7.0) 12/15/17 11:30 Lymph # (Auto) 0.9 K/uL (1.0-4.3) L 12/15/17 11:30 Wilbarger # (Auto) 1.0 K/uL (0.0-0.8) H 12/15/17 11:30 Eos # (Auto) 0.0 K/uL (0.0-0.7) 12/15/17 11:30 Baso # (Auto) 0.0 K/uL (0.0-0.2) 12/15/17 11:30 Neutrophils % (Manual) 85 % (50-75) H 12/14/17 07:06 Band Neutrophils % 2 % (0-2) 12/13/17 06:09 Lymphocytes % (Manual) 6 % (20-40) L 12/14/17 07:06 Monocytes % (Manual) 9 % (0-10) 12/14/17 07:06 Eosinophils % (Manual) 1 % (0-4) 12/09/17 14:53 Toxic Granulation Present 12/13/17 06:09 Platelet Estimate Normal (NORMAL) 12/14/17 07:06 Large Platelets Present 12/13/17 06:09 Polychromasia Slight 12/13/17 06:09 Hypochromasia (manual) Slight 12/13/17 06:09 Anisocytosis (manual) Slight 12/14/17 07:06 PT 11.0 SECONDS (9.7-12.2) 12/09/17 14:53 INR 1.0 12/09/17 14:53 APTT 32 SECONDS (21-34) 12/09/17 14:53 Puncture Site Rra 12/15/17 12:20 pCO2 47 mm/Hg (35-45) H 12/15/17 12:20 pO2 64 mm/Hg (80-100) L 12/15/17 12:20 HCO3 36.3 mmol/L (21-28) H 12/15/17 12:20 ABG pH 7.53 (7.35-7.45) H 12/15/17 12:20 ABG Total CO2 40.7 mmol/L (22-28) H 12/15/17 12:20 ABG O2 Saturation 97.0 % (95-98) 12/15/17 12:20 ABG Base Excess 14.7 mmol/L (-2.0-3.0) H 12/15/17 12:20 ABG Hemoglobin 12.3 g/dL (11.7-17.4) 12/15/17 12:20 ABG Carboxyhemoglobin 2.1 % (0.5-1.5) H 12/15/17 12:20 POC ABG HHb (Measured) 2.9 % (0.0-5.0) 12/15/17 12:20 ABG Methemoglobin 1.1 % (0.0-3.0) 12/15/17 12:20 Alejandro Test Po 12/15/17 12:20 A-a O2 Difference 162.0 mm/Hg 12/15/17 12:20 Respiratory Index 2.5 12/15/17 12:20 Hgb O2 Saturation 93.9 % (95.0-98.0) L 12/15/17 12:20 Liter Flow 8.0 12/15/17 12:20 Vent Mode Cpap 12/09/17 17:50 Mechanical Rate 5 12/09/17 17:50 FiO2 40.0 % 12/15/17 12:20 Pressure Support 10 12/09/17 17:50 Sodium 133 mmol/L (132-148) 12/15/17 11:30 Potassium 3.5 mmol/L (3.6-5.2) L 12/15/17 11:30 Chloride 90 mmol/L (98-107) L 12/15/17 11:30 Carbon Dioxide 40 mmol/L (22-30) H* 12/15/17 11:30 Anion Gap 6 (10-20) L 12/15/17 11:30 BUN 32 mg/dL (7-17) H 12/15/17 11:30 Creatinine 0.5 mg/dL (0.7-1.2) L 12/15/17 11:30 Est GFR ( Amer) > 60 12/15/17 11:30 Est GFR (Non-Af Amer) > 60 12/15/17 11:30 POC Glucose (mg/dL) 286 mg/dL (65-110) H 12/16/17 12:01 Random Glucose 225 mg/dL (65-105) H 12/15/17 11:30 Calcium 8.6 mg/dl (8.6-10.4) 12/15/17 11:30 Phosphorus 2.3 mg/dL (2.5-4.5) L 12/15/17 11:30 Magnesium 2.1 mg/dL (1.6-2.3) 12/15/17 11:30 Total Bilirubin 0.4 mg/dL (0.2-1.3) 12/15/17 11:30 AST 28 U/L (14-36) 12/15/17 11:30 ALT 44 U/L (9-52) 12/15/17 11:30 Alkaline Phosphatase 98 U/L (38-126) 12/15/17 11:30 Troponin I 0.0430 ng/mL (0.00-0.120) 12/09/17 14:53 NT-Pro-B Natriuret Pep 5400 pg/mL (0-900) H 12/09/17 14:53 Total Protein 5.3 g/dL (6.3-8.3) L 12/15/17 11:30 Albumin 2.7 g/dL (3.5-5.0) L 12/15/17 11:30 Globulin 2.6 gm/dL (2.2-3.9) 12/15/17 11:30 Albumin/Globulin Ratio 1.1 (1.0-2.1) 12/15/17 11:30 TSH 3rd Generation 3.22 mIU/L (0.46-4.68) 12/10/17 06:02 Urine Color Yellow (YELLOW) 12/09/17 22:46 Urine Clarity Clear (Clear) 12/09/17 22:46 Urine pH 6.0 (5.0-8.0) 12/09/17 22:46 Ur Specific Mode 1.019 (1.003-1.030) 12/09/17 22:46 Urine Protein Negative mg/dL (NEGATIVE) 12/09/17 22:46 Urine Glucose (UA) 1+ mg/dL (Normal) 12/09/17 22:46 Urine Ketones Negative mg/dL (NEGATIVE) 12/09/17 22:46 Urine Blood Negative (NEGATIVE) 12/09/17 22:46 Urine Nitrate Negative (NEGATIVE) 12/09/17 22:46 Urine Bilirubin Negative (NEGATIVE) 12/09/17 22:46 Urine Urobilinogen 4.0 mg/dL (0.2-1.0) H 12/09/17 22:46 Ur Leukocyte Esterase Neg Arnie/uL (Negative) 12/09/17 22:46 Urine WBC (Auto) 2 /hpf (0-5) 12/09/17 22:46 Urine RBC (Auto) 4 /hpf (0-3) H 12/09/17 22:46 Hyaline Casts 0-2 /lpf (0-2) 12/09/17 22:46 Influenza Typ A,B (EIA) Negative for flu a/b (NEGATIVE) 12/09/17 14:53 - Hospital Course Hospital Course: This is a 72-year-old female who is known to the hospitalist service from several recent admissions. She was recently discharged from here on 12/07 to a subacute rehabilitation, however she returns today on 12/09 from [facility] since she was having green sputum , coughing from the tracheostomy. 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 Her time in the hospital was complicated with pneumonia as well as dislodgment of the tracheostomy requiring another surgery to place the tracheostomy. Because of her ongoing weakness she would require a lot of rehabilitation for her to become strong enough to then later undergo chemotherapy/radiation treatments for her malignancy. She was therefore sent to subacute rehabilitation however unfortunately she now returns. We did send her with IV antibiotics (IV Zosyn) however I reviewed the chest x-ray appears that she's having significant changes on the right lung base. The WBC is 7.4 but there is a left shift of 90% . We will get a new CT scan of the chest, She has already had blood cultures drawn, I have also ordered sputum of the tracheostomy as well. Lab work in ER show an elevated BNP as well and we will give low dose IV lasix. She does have a history of CHF. The patient is unable to speak, however communication is with nodding of her head. She was able to indicate that she was coughing. She denied fever, denied chest pain, denied stomach pain. 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 Her other past medical history includes CHF, COPD, hypertension, CAD, Past surgical histories include cardiac stenting done in 2010, partial thyroidectomy at age 28, appendectomy at age 15, left hernia repair in 2010. Family history includes her father passing away from ID at age 40 Social history: It appears the patient was smoking at least half pack a day up until this recent September 2017. Previous documents reports she spent smoking 2-3 packs per day during her early teenage years. Denied alcohol, denied drug use. Hospital Course: Patient was admitted for hospital acquired pneumonia. Patient was given vancomycin and cefepime in the emergency room once. Pulmonology Dr. Dumont and infectious disease Dr. Alamo were both consulted. Trach and blood cultures were both negative. Merrem was started by Dr. Alamo on 12/09/17. Patient was discharged to [facility] with home medications and Cipro 500mg bid for 3 days; Prednisone taper (20mg daily for 3 days; 10mg daily for 3 days; 5 mg daily for 3 days). Imaging: - Chest xray (12/09/17): Worsening right lower lobe infiltrate. New left lower lobe infiltrate/atelectasis. - Chest CT (12/09/17): Mild cardiomegaly and atherosclerotic disease, bilateral pleural effusions with basilar opacities atelectasis and/or infiltrate. - Chest xray (12/12/17): Substantial improvement in bilateral infiltrates and effusion. - Chest xray (12/15/17): Right basilar subsegmental atelectasis. Possible small left pleural effusion. Patient seen and examined at bedside in the AM. Per primary nurse, no acute events overnight. Patient denies any new complaints today. Patient reports PT will be coming today to work with her. Denies fevers/chills, chest pain, shortness of breath, abdominal pain, nausea, vomiting. Patient was discharge to [facility]. This is a summary of the patient's hospital course. Refer to full EMR for a complete record. Discharge Exam - Head Exam Head Exam: ATRAUMATIC, NORMAL INSPECTION - Eye Exam Eye Exam: EOMI, Normal appearance - ENT Exam ENT Exam: Mucous Membranes Moist - Respiratory Exam Respiratory Exam: NORMAL BREATHING PATTERN Additional comments: trach in place - Cardiovascular Exam Cardiovascular Exam: REGULAR RHYTHM, +S1, +S2 - GI/Abdominal Exam GI & Abdominal Exam: Normal Bowel Sounds, Soft. absent: Tenderness Additional comments: Peg tube - clean/dry/intact - Extremities Exam Extremities exam: normal inspection - Neurological Exam Neurological exam: Alert, Oriented x3 - Psychiatric Exam Psychiatric exam: Normal Affect, Normal Mood - Skin Skin Exam: Normal Color Discharge Plan - Discharge Medications Prescriptions: Ciprofloxacin 500 mg PO BID #6 ml Prednisone 5 mg PO DAILY #3 tab.ds.pk - Follow Up Plan Condition: FAIR Disposition: REHAB FACILITY/REHAB UNIT Instructions: Ciprofloxacin (Systemic), Heart Healthy Diet, Heart Failure, Adult (DC), Pneumonia, Adult (DC), Prednisone Referrals: Lexa Dumont MD [Staff Provider] - Juan Carlos Dunlap MD [Staff Provider] - Chanel Alamo MD [Staff Provider] -
[2017-12-16 17:14] VITALS: BP 156/82; PULSE 71; TEMP 98.8
--- NOTE | 2017-12-17 03:09 | PN ---
DATE: 12/16/2017 SUBJECTIVE: The patient was seen today. She looked a little better than yesterday. PHYSICAL EXAMINATION: VITAL SIGNS: T-max was 98.8, pulse 71, blood pressure 156/82, respirations are 20. GENERAL: She was awake, alert, had a trach, was not appearing in any distress. She had a trach mask. NECK: Supple. LUNGS: Had bilateral rhonchi, occasional. HEART: S1, S2 are regular. ABDOMEN: Soft, nontender. No guarding. No rigidity present. She does have a PEG tube. EXTREMITIES: Had no edema. LABORATORY DATA: Labs are noted. Labs from today, there was no new labs, but she looked stable. ASSESSMENT AND PLAN: The resident told me that she may be discharged and they were going to discharge her on Cipro as planned before. The patient has chronic respiratory failure, laryngeal cancer, came with pneumonia, had Enterobacter in the sputum on 12/06/2017 and remains with chronic respiratory failure. Chanel Alamo MD
--- NOTE | 2017-12-17 09:54 | PQF CHF ---
This form is a permanent part of the medical record To Derick Ortiz MD, Patient who is known to the hospitalist service from several reent admissions. She was recently discharged from [facility] transferred to Rehab Facility and returns on 12/09 for green sputum from the tracheaostomy and couhing. Significant for CA larynx with Mets to Cervical Lymph Nodes. Diagnosed with Enterrobacter Pneumonia as per Infectious Disease Dr. Ghassan Alamo. History of HTN with CHF. Please specify the type of CHF Systolic/Diastolic/ Combined Systolic-Diastolic/ Acute/Chronic/Acute on Chronic Thank you, Clarification of your documentation is requested to better reflect the severity of illness and intensity of treatment of your patient. Indicators present [x] Diagnosis of CHF and/or history of CHF [x] BNP > 200 [id number] [] Imaging Finding of Pulmonary Edema /Pleural Effusions [] Fluid/Volume Overload [] Pitting edema [] Ejection Fraction < 40% (Indicative of Systolic Heart Failure) [] Ejection Fraction > 40% (Indicative of Diastolic Heart Failure) [] Dyspnea / Orthopenea / Paroxysmal Nocturnal Dyspnea [X] Other: Location in the medical record that reflects the above clinical findings: [] Preserved Ejection Fraction - H&P ; Progress notes Treatment Provided: [] PHYSICIAN'S RESPONSE Based on your medical judgment of the clinical indicators outlined above, are you treating this patient for a known or suspected: [] Acute CHF [] Systolic [] Diastolic [] Combined [] Chronic CHF [] Systolic [] Diastolic [] Combined [] Acute on Chronic CHF []Systolic [] Diastolic [] Combined [] CHF due hypertension [] Acute systolic []Chronic systolic [] Acute/ chronic systolic [] Other, please indicate: [] [] If Unable to Determine, please check the box, sign and date. Present On Admission (POA) Indicator: [] Present at the time of admission [] Not present at the time of admission [] Clinically Undetermined In responding to this query, please exercise your independent professional judgment. The fact that a question is asked does not imply that any particular answer is desired or expected. Thank you for your clarification on this documentation. If you have any questions please call:[ ] * Thank you, [ Violeta Haywood, [facility]] outsewer MIA
--- NOTE | 2017-12-17 12:53 | PCM.HF ---
Heart Failure Core Measure - Heart Failure Ejection Fraction: 40 % or Greater OTILIO Inhibitor Prescribed: No Contraindication/Reason for not providing: on otilio Beta-Chanelle Prescribed: Carvedilol Angiotensin II Receptor Chanelle Prescribed: Yes AnticoagulationTherapy for Atrial Fibrillation/Atrialflutter: No Contraindication/Reason for not providing: no hx of a fib Aldosterone Antagonist Prescribed: No Contraindication/Reason for not providing: ef>45 Hydralazine Nitrate Prescribed: No Contraindication/Reason for not providing: ef>45 Implantable Cardioverter Defibrillator Therapy: No Contraindication/Reason for not providing: ef>45 Cardiac Resynchronization Therapy Prescribed: No Contraindication/Reason for not providing: ef>45 - Follow up Will be discharged to: Home Follow Up Date (must be within 7 days from discharge): 12/23/17 Follow Up Time: 09:00
--- NOTE | 2017-12-17 19:41 | CP.PCM.PN ---
Subjective - Date & Time of Evaluation Date of Evaluation: 12/16/17 Time of Evaluation: 16:00 - Subjective Subjective: No complaints. Objective - Vital Signs/Intake and Output Vital Signs (last 24 hours): Temp Pulse Resp BP Pulse Ox 98.8 F 71 20 156/82 H 100 12/16/17 17:13 12/16/17 17:13 12/16/17 17:13 12/16/17 17:13 12/16/17 17:13 - Labs Labs: 12/15/17 11:30 12/15/17 11:30 PT 11.0 SECONDS (9.7-12.2) 12/09/17 14:53 INR 1.0 12/09/17 14:53 APTT 32 SECONDS (21-34) 12/09/17 14:53 - Head Exam Head Exam: ATRAUMATIC - Eye Exam Eye Exam: Normal appearance - ENT Exam ENT Exam: Mucous Membranes Dry - Respiratory Exam Respiratory Exam: NORMAL BREATHING PATTERN - Cardiovascular Exam Cardiovascular Exam: +S1, +S2 - GI/Abdominal Exam GI & Abdominal Exam: Normal Bowel Sounds Assessment and Plan (1) Laryngeal squamous cell carcinoma Assessment & Plan: with bilateral cervical lymph node metastasis s/p airway compromise requiring emergent tracheostomy pt is debilitated and currently not a treatment candidate Status: Acute
--- NOTE | 2017-12-17 19:42 | CP.PCM.PN ---
Subjective - Date & Time of Evaluation Date of Evaluation: 12/15/17 Time of Evaluation: 14:00 - Subjective Subjective: No complaints. Objective - Vital Signs/Intake and Output Vital Signs (last 24 hours): Temp Pulse Resp BP Pulse Ox 98.8 F 71 20 156/82 H 100 12/16/17 17:13 12/16/17 17:13 12/16/17 17:13 12/16/17 17:13 12/16/17 17:13 - Labs Labs: 12/15/17 11:30 12/15/17 11:30 PT 11.0 SECONDS (9.7-12.2) 12/09/17 14:53 INR 1.0 12/09/17 14:53 APTT 32 SECONDS (21-34) 12/09/17 14:53 - Head Exam Head Exam: ATRAUMATIC - Eye Exam Eye Exam: Normal appearance - ENT Exam ENT Exam: Mucous Membranes Dry - Respiratory Exam Respiratory Exam: NORMAL BREATHING PATTERN - Cardiovascular Exam Cardiovascular Exam: +S1, +S2 - GI/Abdominal Exam GI & Abdominal Exam: Normal Bowel Sounds Assessment and Plan (1) Laryngeal squamous cell carcinoma Assessment & Plan: with bilateral cervical lymph node metastasis s/p airway compromise requiring emergent tracheostomy pt is debilitated and currently not a treatment candidate Status: Acute Status: Acute
--- NOTE | 2017-12-21 12:08 | CP.PCM.CON ---
History of Present Illness - History of Present Illness History of Present Illness: Palliative consult requested by Doctor Jose for Code status discussion Patient is a 72 yo female admitted from [place] with malfunctioning of GT tube. Upon admission to this hospital patient was found to have a UTI and is treated for yeast infection accordingly. Patient is S/P gastrography study where leak at insertion site was found. Patient given only IV fluids at present. PMH COPD, vocal cord cancer, hypoth Soc. hx; , at [facility] at present, daughter Mrs. Harrison involved in care Fam. Hx: father had HTN Review of Systems - Constitutional Constitutional: Malaise - EENT Eyes: absent: As Per HPI, Blind Spots, Blurred Vision, Change in Vision, Decreased Night Vision, Diplopia, Discharge, Dry Eye, Exophthalmos, Floaters, Irritation, Itchy Eyes, Loss of Peripheral Vision, Pain, Photophobia, Requires Corrective Lenses, Sees Flashes, Spots in Vision, Tunnel Vision, Other Visual Disturbances, Loss of Vision, Other Ears: absent: As Per HPI, Decreased Hearing, Ear Discharge, Ear Pain, Tinnitus, Abnormal Hearing, Disequilibrium, Dizziness, Other Additional comments: Trach - Breasts Breasts: absent: As Per HPI, Change in Shape, Mass, Pain, Nipple Discharge, Nipple Inversion, Skin Changes, Swelling, Other - Cardiovascular Cardiovascular: absent: As Per HPI, Acrocyanosis, Chest Pain, Chest Pain at Rest , Chest Pain with Activity, Claudication, Diaphoresis, Dyspnea, Dyspnea on Exertion, Edema, Irregular Heart Rhythm, Pain Radiating to Arm/Neck/Jaw, Leg Edema, Leg Ulcers, Lightheadedness, Orthopnea, Palpitations, Paroxysmal Nocturnal Dyspnea, Pedal Edema, Radiating Pain, Rapid Heart Rate, Slow Heart Rate, Syncope, Other - Respiratory Additional comments: trach - Gastrointestinal Gastrointestinal: absent: As Per HPI, Abdominal Pain, Belching, Bloating, Change in Bowel Habits, Change in Stool Character, Coffee Ground Emesis, Constipation, Cramping, Diarrhea, Dyspepsia, Dysphagia, Early Satiety, Excessive Flatus, Fecal Incontinence, Heartburn, Hematemesis, Hematochezia, Loose Stools, Melena, Nausea, Odynophagia, Temesmus, Vomiting, Other - Genitourinary Genitourinary: absent: As Per HPI, Change in Urinary Stream, Difficulty Urinating, Dysuria, Flank Pain, Hematuria, Pyuria, Nocturia, Urinary Incontinence, Urinary Frequency, Urinary Hesitance, Urinary Urgency, Voiding Freq/Small Amts, Freq UTI, Hx Renal/Bladder Calculi, Hx /Renal Surgery, Bladder Distension, Other - Reproductive: Female Reproductive:Female: Post Menopausal - Menstruation Menstruation: Post Menopausal - Musculoskeletal Musculoskeletal: Muscle Weakness - Integumentary Integumentary: absent: As Per HPI, Acne, Alopecia, Bleeding Lesions, Change in Hair, Change in Nails, Change in Pigmentation, Changing Lesions, Dry Skin, Erythema, Furuncle, Hirsutism, Lesions, New Lesions, Non-Healing Lesions, Photosensitivity, Pruritus, Rash, Skin Pain, Skin Ulcer, Sores, Striae, Swelling , Unusual Bruising, Wounds, Jaundice, Other - Neurological Neurological: absent: As Per HPI, Abnormal Gait, Abnormal Hearing, Abnormal Movements, Abnormal Speech, Behavioral Changes, Burning Sensations, Confusion, Convulsions, Disequilibrium, Dizziness, Numbness, Focal Weakness, Frequent Falls , Headaches, Lack of Coordination, Loss of Vision, Memory Loss, Paresthesias, Radicular Pain, Restless Legs, Sensory Deficit, Syncope, Tingling, Tremor, Vertigo, Weakness, Other Visual Disturbances, Other - Psychiatric Psychiatric: Memory Loss - Endocrine Endocrine: absent: As Per HPI, Change in Body Appearance, Change in Libido, Cold Intolorance, Deepening of Voice, Excessive Sweating, Fatigue, Flushing, Heat Intolorance, Increase in Ring/Shoe/Hat Size, Palpitations, Polydipsia, Polyphagia, Polyuria, Other - Hematologic/Lymphatic Hematologic: absent: As Per HPI, Easy Bleeding, Easy Bruising, Lymphadenopathy, Other Past Patient History - Infectious Disease Hx of Infectious Diseases: None - Past Medical History & Family History Past Medical History?: Yes - Past Social History Smoking Status: Light Smoker < 10 Cigarettes Daily - CARDIAC Hx Hypercholesterolemia: Yes Hx Hypertension: Yes - PULMONARY Hx Chronic Obstructive Pulmonary Disease (COPD): Yes - NEUROLOGICAL Hx Neurological Disorder: No - HEENT Hx HEENT Problems: Yes Other/Comment: "HARD OF HEARING". HX: RIGHT JUGULARY LYMPH NODE BX.(10/12/17). HX: VOCAL CORD POLYP - ENDOCRINE/METABOLIC Hx Hypothyroidism: Yes - HEMATOLOGICAL/ONCOLOGICAL Hx Blood Disorders: Yes Hx Cancer: Yes (RIGHT JUGULAR LYMPH NODE BX:SQUAMOUS CELL CA) Hx Shingles: Yes - INTEGUMENTARY Hx Dermatological Problems: No - MUSCULOSKELETAL/RHEUMATOLOGICAL Hx Musculoskeletal Disorders: No Hx Falls: No - GASTROINTESTINAL Hx Gastrointestinal Disorders: No - GENITOURINARY/GYNECOLOGICAL Hx Genitourinary Disorders: No - PSYCHIATRIC Hx Substance Use: No - SURGICAL HISTORY Hx Appendectomy: Yes - ANESTHESIA Hx Anesthesia: Yes Hx Anesthesia Reactions: No Hx Malignant Hyperthermia: No Meds Allergies/Adverse Reactions: Allergies Allergy/AdvReac Type Severity Reaction Status Date / Time No Known Allergies Allergy Verified 12/18/17 18:15 Physical Exam - Constitutional Appears: No Acute Distress, Chronically Ill - Head Exam Head Exam: ATRAUMATIC, NORMAL INSPECTION, NORMOCEPHALIC - Eye Exam Eye Exam: EOMI, Normal appearance, PERRL Pupil Exam: NORMAL ACCOMODATION, PERRL - ENT Exam ENT Exam: Mucous Membranes Dry Additional comments: Trach - Neck Exam Neck exam: Positive for: Normal Inspection - Respiratory Exam Respiratory Exam: Decreased Breath Sounds, Rhonchi - Cardiovascular Exam Cardiovascular Exam: REGULAR RHYTHM - GI/Abdominal Exam Additional comments: GT non functional - Rectal Exam Rectal Exam: Deferred - Extremities Exam Extremities exam: Positive for: normal inspection, pedal edema - Back Exam Back exam: NORMAL INSPECTION - Neurological Exam Neurological exam: Alert - Psychiatric Exam Psychiatric exam: Flat Affect - Skin Skin Exam: Normal Color Results - Vital Signs Recent Vital Signs: Last Vital Signs Temp 98.8 F 12/16/17 17:13 Pulse 71 12/16/17 17:13 Resp 20 12/16/17 17:13 BP 156/82 H 12/16/17 17:13 Pulse Ox 100 12/16/17 17:13 - Labs Result Diagrams: 12/15/17 11:30 12/15/17 11:30 Assessment & Plan - Assessment and Plan (Free Text) Assessment: Palliative consult Full Code, no Advance Directive on chart, PPS 30% I reviewed Medical records, all diagnostic studies, examined and interviewed patient in the bed. Patient is alert, in no acute distress with whispering voice due to trach. Patient fallows commends and answers simple questions. patient has lack of short term memory. Patient appears tired and falls asleep easily. Hb stable at 11.7. Trach in place. Breath sounds diminished with some ronchi. Abdomen soft. GT to LUQ with maroon colored drainage and faul smell. The C&S was sent. Patient is afebrile.Patient complains of pain to GT site. All extremities mobile. BP 185/98, HR 127. IV fluis on for hydration. Coreg, Cozaar and Plavix on board. Cipro IV and Vanco IV for UTI. I meet with patient's daughter Megan at bed side. We met in past as well when patient was on ICU and received trach. I reviewed patient's current clinical status and elicited daughter's concerns and expectations. The daughter stated being frustrated with malfunction of GT tube and wishes it is replaced. She expects her mother to return to [facility] where she will get stronger than proceed for chemo Tx with Doctor Germán. Daughter is aware that her mother needs to be stable and much stronger before initiating chemo tx. Daughter is looking forward her mother returning home post [facility]. Code status discussed. The daughter stated that patient had told her that she would want all agressive measures to be implemented to support her life. Daughter who is a POA is determined to respect her wishes. I supported her. This was discussed with Doctor Jose. Impression * Chronically ill lady with trach and PEG * Vocal cords cancer * Infected and leaking GT * Malnutrition at present * Pain at GT side * Weakness * HTN Suggestion * Keep skin around GT dry * Continue IV hydration * Would consider Morphine 2 mg IV Q 4 hr PRN pain at GT side * Maintain SBP at 150 or bellow * Control tachycardia * Full Code, apply all measures to sustain life Daughter is looking forward fast fix of GT and discharge to [facility] Advance planing time 45 min
== END 2017-12-16 18:00 | DRG 208 ==
LOC: C.ER 13:52 → C.9E 14:53 → C.9I 16:55 → C.6T 12-11 22:41
PROVIDERS: ADMIT Internal Medicine; ATTEND Internal Medicine
PROC: 5A1945Z Respiratory Ventilation, 24-96 Consecutive Hours (ICD-10-PCS; principal; 2017-12-09)
DX: J15.6 Pneumonia due to other Gram-negative bacteria (principal); C77.0 Secondary and unspecified malignant neoplasm of lymph nodes of head, face and neck; E87.3 Alkalosis; J96.10 Chronic respiratory failure, unspecified whether with hypoxia or hypercapnia; J98.11 Atelectasis; C32.9 Malignant neoplasm of larynx, unspecified; E03.9 Hypothyroidism, unspecified; E78.00 Pure hypercholesterolemia, unspecified; E87.6 Hypokalemia; I11.0 Hypertensive heart disease with heart failure; I25.10 Atherosclerotic heart disease of native coronary artery without angina pectoris; Z87.891 Personal history of nicotine dependence; J44.9 Chronic obstructive pulmonary disease, unspecified; I50.9 Heart failure, unspecified; Z95.5 Presence of coronary angioplasty implant and graft; I71.4 Abdominal aortic aneurysm, without rupture; E11.9 Type 2 diabetes mellitus without complications; Z79.4 Long term (current) use of insulin

== ENCOUNTER 2017-12-18 18:11 | Inpatient (IN) | payer MEDICARE, BC ==
[2017-12-18 18:15] VITALS: BMI 25.7
--- NOTE | 2017-12-18 19:17 | C.PDOC ---
History Of Present Illness 72 year old female presents to the emergency department after being sent from [facility] for a GT reinsertion. Chief Complaint (Nursing): Medical Clearance History Per: Patient History/Exam Limitations: no limitations Onset/Duration Of Symptoms: Hrs Past Medical History Reviewed: Historical Data, Nursing Documentation, Vital Signs Vital Signs: Last Vital Signs Temp 98.8 F 12/18/17 18:27 Pulse 76 12/18/17 19:58 Resp 18 12/18/17 19:58 BP 136/85 12/18/17 19:58 Pulse Ox 99 12/18/17 20:52 - Medical History PMH: COPD, HTN, Hypercholesterolemia, Hyperlipidemia, Hypothyroidism, Malignancy (Vocal cords) Denies: Kidney Stones Surgical History: Appendectomy, Endoscopy - [facility] Procedures (10/11/17) BYPASS TRACHEA TO CUTANEOUS WITH TRACH DEV, OPEN APPROACH (11/15/17) INSERTION OF FEEDING DEVICE INTO STOMACH, OPEN APPROACH (11/15/17) INTRODUCTION OF NUTRITIONAL INTO UP GI, VIA OPENING (11/15/17) RESPIRATORY VENTILATION, 24-96 CONSECUTIVE HOURS (12/09/17) RESPIRATORY VENTILATION, GREATER THAN 96 CONSECUTIVE HOURS (11/15/17) ULTRASONOGRAPHY OF NECK (10/11/17) Family History: States: No Known Family Hx - Social History Hx Tobacco Use: Yes Hx Alcohol Use: No Hx Substance Use: No - Immunization History Hx Tetanus Toxoid Vaccination: No Hx Influenza Vaccination: No Hx Pneumococcal Vaccination: No Review Of Systems Except As Marked, All Systems Reviewed And Found Negative. Gastrointestinal: Positive for: Abdominal Pain Physical Exam - Physical Exam Appears: Non-toxic, No Acute Distress Skin: Warm, Dry Head: Atraumatic, Normacephalic Eye(s): bilateral: Normal Inspection Nose: Normal Oral Mucosa: Moist Chest: Symmetrical Cardiovascular: Rhythm Regular, No Murmur Respiratory: Normal Breath Sounds, No Rales, No Wheezing Gastrointestinal/Abdominal: Soft, No Tenderness, Other (GT in place, patient is irrigating with no problem) Extremity: Normal ROM Neurological/Psych: Oriented x3, Normal Speech, Normal Cognition ED Course And Treatment O2 Sat by Pulse Oximetry: 99 (RA) Pulse Ox Interpretation: Normal Reevaluation Time: 19:14 (G tube functioning well, no obstruction noted, irrigating well, no leakage of fluid noted.) Reassessment Condition: Unchanged (194H re-exam. dressing by the gastrostomy stoma persisted to be dry with no leakage noted.) - Physician Consult Information Time Consulting Physician Contacted: 19:25 Physician Contacted: Navarro Tyler Outcome Of Conversation: Dr. Tyler was spoken to, and he was told that the GT is working well. Dr. Tyler advised that the patient be sent back to the skilled nursing. Disposition Discussed With Dr.: Navarro Tyler Counseled Patient/Family Regarding: Diagnosis - Disposition Referrals: Navarro Tyler MD [Staff Provider] - Disposition: HOSPITALIZED Disposition Time: 19:50 Condition: STABLE Forms: [employer] (Kyrgyz) - POA Present On Arrival: None - Clinical Impression Clinical Impression: Laryngeal cancer, Gastrostomy site leak - Scribe Statement The provider has reviewed the documentation as recorded by the Scribe (Anibal Simmons) Provider Attestation: All medical record entries made by the Scribe were at my direction and personally dictated by me. I have reviewed the chart and agree that the record accurately reflects my personal performance of the history, physical exam, medical decision making, and the department course for this patient. I have also personally directed, reviewed, and agree with the discharge instructions and disposition.
--- NOTE | 2017-12-18 19:17 | C.PDOC ---
Chief Complaint (Nursing): Medical Clearance Past Medical History Vital Signs: Last Vital Signs Temp 98.8 F 12/18/17 18:27 Pulse 96 H 12/18/17 18:27 Resp 18 12/18/17 18:27 BP 128/89 12/18/17 18:27 Pulse Ox 99 12/18/17 18:27 - Medical History PMH: COPD, HTN, Hypercholesterolemia, Hyperlipidemia, Hypothyroidism, Malignancy (Vocal cords) Denies: Kidney Stones Surgical History: Appendectomy, Endoscopy - [facility] Procedures (10/11/17) BYPASS TRACHEA TO CUTANEOUS WITH TRACH DEV, OPEN APPROACH (11/15/17) INSERTION OF FEEDING DEVICE INTO STOMACH, OPEN APPROACH (11/15/17) INTRODUCTION OF NUTRITIONAL INTO UP GI, VIA OPENING (11/15/17) RESPIRATORY VENTILATION, 24-96 CONSECUTIVE HOURS (12/09/17) RESPIRATORY VENTILATION, GREATER THAN 96 CONSECUTIVE HOURS (11/15/17) ULTRASONOGRAPHY OF NECK (10/11/17) Family History: States: Unknown Family Hx - Social History Hx Tobacco Use: Yes Hx Alcohol Use: No Hx Substance Use: No - Immunization History Hx Tetanus Toxoid Vaccination: No Hx Influenza Vaccination: No Hx Pneumococcal Vaccination: No ED Course And Treatment O2 Sat by Pulse Oximetry: 99 Reevaluation Time: 19:14 (G tube functioning well, no obsruction noted, irrigating well, no leakage of fluid noted.) Reassessment Condition: Unchanged Disposition - Disposition
[2017-12-18 22:38] LABS: SQUAMOUS EPITHIAL 2 /hpf (0-5); URINE AMORPHOUS SEDIMENT FEW /ul (<OCC); URINE BACTERIA OCC (<OCC); URINE BILIRUBIN NEGATIVE (NEGATIVE); URINE BLOOD 3+ (NEGATIVE); URINE CLARITY Turbid (Clear); URINE COLOR Yellow (YELLOW); URINE GLUCOSE (UA) NORMAL (Normal); URINE LEUKOCYTE ESTERASE 3+ Leu/uL (Negative); URINE PROTEIN 1+ mg/dL (NEGATIVE); URINE UROBILINOGEN NORMAL mg/dL (0.2-1.0)
--- NOTE | 2017-12-18 23:54 | CP.PCM.HP ---
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 Patient's granddaughter is at bedside and contributing to history as patient is unable to speak. The leakage was noticed this afternoon around 3pm. Patient was recently hospitalized for hospital acquired pneumonia and was discharge to home on 12/16/17. Patient was sent home with the douglass still in place. Per the granddaughter, while they were in the ER, they noticed blood in the urine. The patient currently denies fevers , chills, dyspnea, nausea, vomiting, headaches, chest pain, dyspnea, and abdominal pain (patient nodding head in response to review of systems). PMD: Dr. 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 FamHx: Father, Brother- MD SocHx: Former smoker (60 pack years); denies drug and alcohol use; lives with granddaughter, but currently at [facility]. Allergies: NKDA Medications: [per EMR] Ventolin, Asa 81mg daily, coreg 3.125mg daily, cipro 500mg bid (for 3 days, given at discharge), plavix 75mg po daily, pepcid 40mg daily, losartan 25mg daily Present on Admission - Present on Admission Any Indicators Present on Admission: No Review of Systems - Review of Systems Review of Systems: limited, patient unable to speak well; Nods head yes and no. - Constitutional Constitutional: Weakness. absent: Chills, Fever, Headache - EENT Ears: absent: Dizziness - Cardiovascular Cardiovascular: absent: Chest Pain, Dyspnea, Leg Edema, Palpitations - Respiratory Respiratory: Cough (chronic), Excessive Mucous Production. absent: Dyspnea - Gastrointestinal Gastrointestinal: Constipation. absent: Abdominal Pain, Diarrhea, Nausea, Vomiting Additional comments: Leaking Gastrostomy - Genitourinary Genitourinary: Hematuria. absent: Pyuria - Musculoskeletal Musculoskeletal: absent: Back Pain - Integumentary Integumentary: absent: Rash - Neurological Neurological: absent: Dizziness, Headaches - Endocrine Endocrine: absent: Palpitations Past Patient History - Infectious Disease Hx of Infectious Diseases: None - Past Medical History & Family History Past Medical History?: Yes - Past Social History Smoking Status: Light Smoker < 10 Cigarettes Daily - CARDIAC Hx Hypercholesterolemia: Yes Hx Hypertension: Yes - PULMONARY Hx Chronic Obstructive Pulmonary Disease (COPD): Yes - NEUROLOGICAL Hx Neurological Disorder: No - HEENT Hx HEENT Problems: Yes Other/Comment: "HARD OF HEARING". HX: RIGHT JUGULARY LYMPH NODE BX.(10/12/17). HX: VOCAL CORD POLYP - RENAL Hx Kidney Stones: No - ENDOCRINE/METABOLIC Hx Hypothyroidism: Yes - HEMATOLOGICAL/ONCOLOGICAL Hx Blood Disorders: Yes Hx Cancer: Yes (RIGHT JUGULAR LYMPH NODE BX:SQUAMOUS CELL CA) Hx Shingles: Yes - INTEGUMENTARY Hx Dermatological Problems: No - MUSCULOSKELETAL/RHEUMATOLOGICAL Hx Musculoskeletal Disorders: No Hx Falls: No - GASTROINTESTINAL Hx Gastrointestinal Disorders: No - GENITOURINARY/GYNECOLOGICAL Hx Genitourinary Disorders: No - PSYCHIATRIC Hx Substance Use: No - SURGICAL HISTORY Hx Appendectomy: Yes - ANESTHESIA Hx Anesthesia: Yes Hx Anesthesia Reactions: No Hx Malignant Hyperthermia: No Meds Allergies/Adverse Reactions: Allergies Allergy/AdvReac Type Severity Reaction Status Date / Time No Known Allergies Allergy Verified 12/18/17 18:15 Physical Exam - Constitutional Appears: No Acute Distress - Head Exam Head Exam: ATRAUMATIC, NORMAL INSPECTION - Eye Exam Eye Exam: EOMI, Normal appearance, PERRL - ENT Exam ENT Exam: Mucous Membranes Moist - Neck Exam Additional comments: Tracheostomy in place - Respiratory Exam Respiratory Exam: Rhonchi, NORMAL BREATHING PATTERN. absent: Clear to Auscultation Bilateral, Respiratory Distress - Cardiovascular Exam Cardiovascular Exam: REGULAR RHYTHM, +S1, +S2 - GI/Abdominal Exam GI & Abdominal Exam: Normal Bowel Sounds, Soft. absent: Distended, Firm, Tenderness Additional comments: well healed midline vertical scar; gastrostomy- mild erythema surrounding sutures, no discharged noted at time of examination. - Exam Additional comments: Douglass in place - Extremities Exam Extremities exam: Positive for: full ROM, pedal pulses present. Negative for: pedal edema, tenderness - Neurological Exam Neurological exam: Alert, Oriented x3 - Psychiatric Exam Psychiatric exam: Normal Affect, Normal Mood - Skin Skin Exam: Dry, Normal Color, Warm Additional comments: no sacral wounds noted. Results - Vital Signs Recent Vital Signs: Last Vital Signs Temp 98.8 F 12/18/17 18:27 Pulse 84 12/18/17 22:14 Resp 14 12/18/17 22:14 BP 150/80 12/18/17 22:14 Pulse Ox 98 12/18/17 22:14 - Labs Labs: Laboratory Results - last 24 hr 12/18/17 22:19 Urine Color Yellow Urine Clarity Turbid Urine pH 9.0 Ur Specific [place] 1.014 Urine Protein 1+ H Urine Glucose (UA) Normal Urine Ketones Negative Urine Blood 3+ H Urine Nitrate Negative Urine Bilirubin Negative Urine Urobilinogen Normal Ur Leukocyte Esterase 3+ H Urine WBC (Auto) 134 H Urine RBC (Auto) 519 H Ur Squamous Epith Cells 2 Amorphous Sediment Few H Urine Bacteria Occ H Ur Yeast w Hyphae Occ H Assessment & Plan (1) Gastrostomy site leak Assessment and Plan: General Surgery consulted, Dr. Gamez; help appreciated Gastrostomy placed on 11/24/[address] Gamez Gastrostomy culture: f/u results Status: Acute (2) UTI (urinary tract infection) Assessment and Plan: UA: 1+protein 3+ blood, 3+ Leuk Esterase, WBC 134, RBC 519, Occ bacteria, Occ yeast Afebrile Discontinued Douglass Cipro 500mg PO BID Urine cx: f/u results Status: Acute (3) Diabetes mellitus Assessment and Plan: Patient denies hx of DM A1c (11/30/17): 7.2 ISS Hypoglycemia protocol Accuchecks Continue to monitor Status: Acute (4) COPD (chronic obstructive pulmonary disease) Assessment and Plan: Former heavy smoker (60 pack-years) Chest xray: f/u results Was discharged from hospital on 12/16/16 with prescription for cipro 500mg PO BID for hospital acquired pneumonia Continue Cipro 500mg PO BID Duonebs and mucomyst Q6h Solumedrol 20mg IV Q12h Status: Acute (5) Laryngeal cancer Assessment and Plan: 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 Needs continuous tracheostomy care. Status: Acute (6) HTN (hypertension) Assessment and Plan: Continue home medications: Losartan 25mg PO daily, Coreg 3.125mg PO BID Continue to monitor Status: Acute (7) Prophylactic measure Assessment and Plan: Pepcid 20mg PO BID SCDs Status: Acute <Александр Brothers - Last Filed: 12/19/17 06:37> Results - Vital Signs Recent Vital Signs: Last Vital Signs Temp 98.1 F 12/18/17 23:24 Pulse 81 12/18/17 23:24 Resp 20 12/18/17 23:24 BP 153/91 H 12/18/17 23:24 Pulse Ox 100 12/18/17 23:24 - Labs Labs: Laboratory Results - last 24 hr 12/18/17 22:19 Urine Color Yellow Urine Clarity Turbid Urine pH 9.0 Ur Specific [place] 1.014 Urine Protein 1+ H Urine Glucose (UA) Normal Urine Ketones Negative Urine Blood 3+ H Urine Nitrate Negative Urine Bilirubin Negative Urine Urobilinogen Normal Ur Leukocyte Esterase 3+ H Urine WBC (Auto) 134 H Urine RBC (Auto) 519 H Ur Squamous Epith Cells 2 Amorphous Sediment Few H Urine Bacteria Occ H Ur Yeast w Hyphae Occ H Assessment & Plan - Date & Time Date: 12/19/17 (I have seen and examined the patient. I agree with the findings and plan of care as documented by Dr. Roman. Patient with gastrostomy site leak. Consult to Surgery. Also with UTI. On Cipro. Urine and blood cultures. Continue home meds for COPD. Monitor for acute changes.) Time: 06:36 Attending/Attestation - Attestation I have personally seen and examined this patient.: Yes I have fully participated in the care of the patient.: Yes I have reviewed all pertinent clinical information: Yes
[2017-12-19] MEDS: Albuterol-Ipratrop 3 mg / 0.5 (3 ml) UD INH SCH ×5 (00:16→19:20)
[2017-12-19] MEDS: Acetylcysteine 20% Inhal Soln (4ml) INH SCH ×5 (00:16→19:19)
--- NOTE | 2017-12-19 07:40 | CP.PCM.CON ---
<Blas Garcia - Last Filed: 12/19/17 07:36> History of Present Illness - History of Present Illness History of Present Illness: Surgery- Dr. Gamez Reason for Consult: malfunctioning G-Tube 72F pmhx sig for laryngeal CA s/p emergent tracheostomy for airway obstruction, s/p G-Tube placement on 11/24/17. Tube feeds at post-op reached goal feeds with out extravasation prior to discharge. surgery was consulted b/c no feeds were passing through the G-Tube. Patient follow simple commands. Denies pain at this time. Currently Denies N/V chest pain, shortness of breath, numbness/tingling in extremities PMH: COPD, HTN, diastolic CHF w/preserved EF, laryngeal CA, CAD PSH: PCI w/stents, L hernia repair, partial thyroidectomy, appendectomy, trach, recent G-Tube placement All: NKDA SH: Tobacco use- 1/2 ppd x 60 yrs, no ETOH or illicit drug use FH: non-contributory 14 point ROS conducted, Negative otherwise montiel stated above Review of Systems - Review of Systems All systems: reviewed and no additional remarkable complaints except - Constitutional Constitutional: As Per HPI Past Patient History - Infectious Disease Hx of Infectious Diseases: None - Past Medical History & Family History Past Medical History?: Yes - Past Social History Smoking Status: Light Smoker < 10 Cigarettes Daily - CARDIAC Hx Hypercholesterolemia: Yes Hx Hypertension: Yes - PULMONARY Hx Chronic Obstructive Pulmonary Disease (COPD): Yes - NEUROLOGICAL Hx Neurological Disorder: No - HEENT Hx HEENT Problems: Yes Other/Comment: "HARD OF HEARING". HX: RIGHT JUGULARY LYMPH NODE BX.(10/12/17). HX: VOCAL CORD POLYP - RENAL Hx Kidney Stones: No - ENDOCRINE/METABOLIC Hx Hypothyroidism: Yes - HEMATOLOGICAL/ONCOLOGICAL Hx Blood Disorders: Yes Hx Cancer: Yes (RIGHT JUGULAR LYMPH NODE BX:SQUAMOUS CELL CA) Hx Shingles: Yes - INTEGUMENTARY Hx Dermatological Problems: No - MUSCULOSKELETAL/RHEUMATOLOGICAL Hx Musculoskeletal Disorders: No Hx Falls: No - GASTROINTESTINAL Hx Gastrointestinal Disorders: No - GENITOURINARY/GYNECOLOGICAL Hx Genitourinary Disorders: No - PSYCHIATRIC Hx Substance Use: No - SURGICAL HISTORY Hx Appendectomy: Yes - ANESTHESIA Hx Anesthesia: Yes Hx Anesthesia Reactions: No Hx Malignant Hyperthermia: No Meds Allergies/Adverse Reactions: Allergies Allergy/AdvReac Type Severity Reaction Status Date / Time No Known Allergies Allergy Verified 12/18/17 18:15 - Medications Medications: Current Medications Acetylcysteine (Acetylcysteine 20%) 4 ml INH RQ6 MARCO Last Admin: 12/19/17 07:23 Dose: 4 ml Albuterol/Ipratropium (Duoneb 3 Mg/0.5 Mg (3 Ml) Ud) 3 ml INH RQ6 MARCO Last Admin: 12/19/17 07:23 Dose: 3 ml Carvedilol (Coreg) 3.125 mg GT BID MARCO Ciprofloxacin (Cipro) 500 mg PO BID [facility]CO PRN Reason: Protocol Last Admin: 12/19/17 02:07 Dose: Not Given Clopidogrel Bisulfate (Plavix) 75 mg GT DAILY [facility] Famotidine (Pepcid) 40 mg GT DAILY [facility] Insulin Human Regular (Novolin R) 0 unit SC ACHS MARCO PRN Reason: Protocol Losartan Potassium (Cozaar) 25 mg GT DAILY [facility]CO Methylprednisolone (Solu-Medrol) 20 mg IV Q12 [facility]CO Rosuvastatin Calcium (Crestor) 10 mg GT HS MARCO Physical Exam - Constitutional Appears: Non-toxic, No Acute Distress, Older Than Stated Age, Chronically Ill - Head Exam Head Exam: ATRAUMATIC - Eye Exam Eye Exam: EOMI. absent: Scleral icterus - ENT Exam ENT Exam: Mucous Membranes Moist - Respiratory Exam Respiratory Exam: NORMAL BREATHING PATTERN. absent: Accessory Muscle Use, Respiratory Distress Additional comments: On trach collar - Cardiovascular Exam Cardiovascular Exam: +S1, +S2. absent: Bradycardia, Tachycardia - GI/Abdominal Exam GI & Abdominal Exam: Soft. absent: Distended, Firm, Guarding, Hernia, Mass, Rigid, Tenderness Additional comments: No signs of skin excoration around G-Tube site Sutures in place - Extremities Exam Extremities exam: Positive for: normal inspection. Negative for: calf tenderness - Neurological Exam Neurological exam: Alert - Psychiatric Exam Psychiatric exam: Normal Affect - Skin Skin Exam: Intact, Warm Results - Vital Signs Recent Vital Signs: Last Vital Signs Temp 98.1 F 12/18/17 23:24 Pulse 81 12/18/17 23:24 Resp 20 12/18/17 23:24 BP 153/91 H 12/18/17 23:24 Pulse Ox 100 12/18/17 23:24 - Labs Labs: Laboratory Results - last 24 hr 12/18/17 12/19/17 22:19 07:24 POC Glucose (mg/dL) 89 Urine Color Yellow Urine Clarity Turbid Urine pH 9.0 Ur Specific [place] 1.014 Urine Protein 1+ H Urine Glucose (UA) Normal Urine Ketones Negative Urine Blood 3+ H Urine Nitrate Negative Urine Bilirubin Negative Urine Urobilinogen Normal Ur Leukocyte Esterase 3+ H Urine WBC (Auto) 134 H Urine RBC (Auto) 519 H Ur Squamous Epith Cells 2 Amorphous Sediment Few H Urine Bacteria Occ H Ur Yeast w Hyphae Occ H Assessment & Plan - Assessment and Plan (Free Text) Assessment: 72F s/p G-Tube placement on 11/24/17; currently non-fuctioning Plan: - No signs of skin excoration around g-tube site - Attempt flushes w/ saline, if does not work, then a carbonated liquid - if flushes to not help, plan for tube study - further recs per Dr. Gamez surgical attending PGY1 <Pop Gamez - Last Filed: 12/24/17 18:03> Meds - Medications Medications: Current Medications Acetylcysteine (Acetylcysteine 20%) 4 ml INH RQ6 [facility] Last Admin: 12/24/17 13:41 Dose: 4 ml Albuterol/Ipratropium (Duoneb 3 Mg/0.5 Mg (3 Ml) Ud) 3 ml INH RQ6 [facility] Last Admin: 12/24/17 13:41 Dose: 3 ml Amlodipine Besylate (Norvasc) 5 mg PEG DAILY [facility] Last Admin: 12/24/17 12:09 Dose: 5 mg Carvedilol (Coreg) 3.125 mg GT BID [facility] Last Admin: 12/24/17 17:49 Dose: 3.125 mg Clopidogrel Bisulfate (Plavix) 75 mg GT DAILY [facility] Last Admin: 12/24/17 12:03 Dose: 75 mg Enoxaparin Sodium (Lovenox) 40 mg SC DAILY [facility] Famotidine (Pepcid) 40 mg GT DAILY [facility] Last Admin: 12/24/17 12:03 Dose: 40 mg Fluconazole (Diflucan) 200 mg PEG DAILY [facility] PRN Reason: Protocol Stop: 01/04/18 10:00 Last Admin: 12/24/17 12:03 Dose: 200 mg Hydralazine HCl (Apresoline) 10 mg IVP Q6H PRN PRN Reason: Systolic Blood Pressure Last Admin: 12/23/17 23:51 Dose: 10 mg Insulin Human Regular (Novolin R) 0 unit SC ACHS [facility] PRN Reason: Protocol Last Admin: 12/24/17 17:47 Dose: 3 unit Ketorolac Tromethamine (Toradol) 30 mg IVP Q6 PRN PRN Reason: Pain, moderate (4-7) Last Admin: 12/22/17 09:41 Dose: 30 mg Lidocaine (Lidoderm) 1 ea TD DAILY [facility] Last Admin: 12/24/17 12:04 Dose: 1 ea Losartan Potassium (Cozaar) 25 mg GT DAILY [facility] Last Admin: 12/24/17 12:09 Dose: 25 mg Methylprednisolone (Solu-Medrol) 20 mg IV Q12 [facility] Last Admin: 12/24/17 12:03 Dose: 20 mg Rosuvastatin Calcium (Crestor) 10 mg GT HS [facility] Last Admin: 12/23/17 21:52 Dose: 10 mg Results - Vital Signs Recent Vital Signs: Last Vital Signs Temp 98.1 F 12/24/17 15:43 Pulse 71 12/24/17 16:16 Resp 18 12/24/17 15:43 BP 148/82 12/24/17 15:43 Pulse Ox 99 12/24/17 15:43 - Labs Result Diagrams: 12/24/17 07:38 12/24/17 07:38 Labs: Laboratory Results - last 24 hr 12/23/17 12/24/17 12/24/17 21:00 06:15 07:38 WBC 8.0 RBC 4.08 Hgb 12.4 Hct 34.3 MCV 84.1 MCH 30.3 MCHC 36.0 RDW 16.7 H Plt Count 179 MPV 7.5 Neut % (Auto) 88.6 H Lymph % (Auto) 4.6 L [place] % (Auto) 6.7 Eos % (Auto) 0.0 Baso % (Auto) 0.1 Neut # (Auto) 7.1 H Lymph # (Auto) 0.4 L [place] # (Auto) 0.5 Eos # (Auto) 0.0 Baso # (Auto) 0.0 Neutrophils % (Manual) 88 H Band Neutrophils % 5 H Lymphocytes % (Manual) 3 L Reactive Lymphs % 1 H Monocytes % (Manual) 3 Platelet Estimate Normal Anisocytosis (manual) Slight Ovalocytes Slight Sodium Potassium Chloride Carbon Dioxide Anion Gap BUN Creatinine Est GFR ( Amer) Est GFR (Non-Af Amer) POC Glucose (mg/dL) 150 H 228 H Random Glucose Calcium Phosphorus Magnesium Total Bilirubin AST ALT Alkaline Phosphatase Total Protein Albumin Globulin Albumin/Globulin Ratio 12/24/17 12/24/17 12/24/17 07:38 11:15 16:30 WBC RBC Hgb Hct MCV MCH MCHC RDW Plt Count MPV Neut % (Auto) Lymph % (Auto) [place] % (Auto) Eos % (Auto) Baso % (Auto) Neut # (Auto) Lymph # (Auto) [place] # (Auto) Eos # (Auto) Baso # (Auto) Neutrophils % (Manual) Band Neutrophils % Lymphocytes % (Manual) Reactive Lymphs % Monocytes % (Manual) Platelet Estimate Anisocytosis (manual) Ovalocytes Sodium 132 Potassium 4.2 Chloride 93 L Carbon Dioxide 33 H Anion Gap 10 BUN 23 H Creatinine 0.7 Est GFR ( Amer) > 60 Est GFR (Non-Af Amer) > 60 POC Glucose (mg/dL) 181 H 223 H Random Glucose 182 H Calcium 8.4 L Phosphorus 3.2 Magnesium 2.0 Total Bilirubin 0.6 AST 39 H ALT 86 H Alkaline Phosphatase 61 Total Protein 5.1 L Albumin 2.7 L Globulin 2.4 Albumin/Globulin Ratio 1.2 Attending/Attestation - Attestation I have personally seen and examined this patient.: Yes I have fully participated in the care of the patient.: Yes I have reviewed all pertinent clinical information: Yes Notes (Text): Pt is seen and examined at bedside Agree with above note and assessment Pt with Malfunctioning G tube Labs reviewed Get G tube study NPO, IVF Plan d.w pt in detail Risk and benefit explained in detail.
[2017-12-19] MEDS: (Novolin R) Insulin Human Regular 100 units/ml vial SC SCH ×5 (08:00→21:55)
[2017-12-19 08:22] LABS: ALBUMIN 2.7 g/dL (3.5-5.0); ALT/SGPT 39 U/L (9-52); AST/SGOT 35 U/L (14-36); BLOOD UREA NITROGEN 31 mg/dL (7-17); CALCIUM 8.5 mg/dl (8.6-10.4); GFR AFRICAN-AMERICAN > 60; GFR NON-AFRICAN AMERICAN > 60
--- NOTE | 2017-12-19 09:18 | RAD ---
HISTORY: preop COMPARISON: Frontal chest radiograph 12/15/2017. FINDINGS: LUNGS: Inspiratory volume appears diminished slightly. Limited patchy atelectasis may be developing in both bases though infiltrates are not completely excluded. Further clinical correlation is advised. PLEURA: No significant pleural effusion identified, no pneumothorax apparent. CARDIOVASCULAR: Normal. OSSEOUS STRUCTURES: No significant abnormalities. VISUALIZED UPPER ABDOMEN: Normal. OTHER FINDINGS: Endotracheal tube unchanged in position. IMPRESSION: Limited bibasilar atelectasis or infiltrates developing in the interval. Examination otherwise stable.
[2017-12-19] MEDS: Dextrose 5%/Lactated Ringer's 1,000 ML IV SCH ×2 (10:00→21:46)
[2017-12-19] MEDS: MethylPREDNISolone 40 mg Vial IV SCH ×2 (11:00→21:49)
--- NOTE | 2017-12-19 11:08 | CP.PCM.PN ---
<GemmaRosalba - Last Filed: 12/19/17 11:19> Subjective - Date & Time of Evaluation Date of Evaluation: 12/19/17 Time of Evaluation: 11:09 - Subjective Subjective: Progress note Patient seen and examined at bedside in the morning. Patient falling asleep during interview. Patient states she feels about the same as before. Patient is aware that her g-tube is leaking at stoma. The entrance site is sutured and secure. Leakage comes from around the G tube. Objective - Vital Signs/Intake and Output Vital Signs (last 24 hours): Temp Pulse Resp BP Pulse Ox 98.1 F 81 20 153/91 H 100 12/18/17 23:24 12/18/17 23:24 12/18/17 23:24 12/18/17 23:24 12/18/17 23:24 Intake and Output: 12/19/17 12/19/17 06:59 18:59 Intake Total 0 Output Total 450 Balance -450 - Medications Medications: Current Medications Acetylcysteine (Acetylcysteine 20%) 4 ml INH RQ6 [facility] Last Admin: 12/19/17 07:23 Dose: 4 ml Albuterol/Ipratropium (Duoneb 3 Mg/0.5 Mg (3 Ml) Ud) 3 ml INH RQ6 [facility] Last Admin: 12/19/17 07:23 Dose: 3 ml Carvedilol (Coreg) 3.125 mg GT BID [facility] Ciprofloxacin (Cipro) 500 mg PO BID [facility] PRN Reason: Protocol Last Admin: 12/19/17 02:07 Dose: Not Given Clopidogrel Bisulfate (Plavix) 75 mg GT DAILY [facility] Famotidine (Pepcid) 40 mg GT DAILY [facility] Dextrose/Lactated Ringer's (Dextrose 5%/Lactated Ringer's) 1,000 mls @ 100 mls/ hr IV .Q10H [facility] Insulin Human Regular (Novolin R) 0 unit SC ACHS [facility] PRN Reason: Protocol Losartan Potassium (Cozaar) 25 mg GT DAILY [facility] Methylprednisolone (Solu-Medrol) 20 mg IV Q12 [facility] Rosuvastatin Calcium (Crestor) 10 mg GT HS [facility] - Labs Labs: 12/19/17 07:47 - Constitutional Appears: No Acute Distress - Head Exam Head Exam: ATRAUMATIC, NORMAL INSPECTION, NORMOCEPHALIC - Eye Exam Eye Exam: EOMI, Normal appearance Pupil Exam: NORMAL ACCOMODATION, PERRL - ENT Exam ENT Exam: Mucous Membranes Moist, Normal Exam - Neck Exam Neck Exam: Full ROM Additional comments: Patient has tracheostomy. with trach collar on - Respiratory Exam Respiratory Exam: Clear to Ausculation Bilateral, Rhonchi, NORMAL BREATHING PATTERN - Cardiovascular Exam Cardiovascular Exam: REGULAR RHYTHM, +S1, +S2. absent: Bradycardia, Tachycardia - GI/Abdominal Exam GI & Abdominal Exam: Soft, Normal Bowel Sounds - Extremities Exam Extremities Exam: Full ROM, Normal Capillary Refill, Normal Inspection. absent : Joint Swelling - Back Exam Back Exam: Full ROM, NORMAL INSPECTION. absent: CVA tenderness (L), CVA tenderness (R) - Neurological Exam Neurological Exam: Alert, Awake, CN II-XII Intact - Psychiatric Exam Psychiatric exam: Normal Affect, Normal Mood - Skin Skin Exam: Dry, Intact, Normal Color, Warm Assessment and Plan - Assessment and Plan (Free Text) Assessment: (1) Gastrostomy site leak Assessment and Plan: General Surgery consulted, Dr. Gamez; help appreciated 10/12/17 Patient had a PEG placed by Dr. Gupta. For PEG tube dysfunction, 11/24/17 Patient had G tube placed by Dr. Gamez 12/[address] Gamez for gastrostomy tube dysfunction f/u General Surgery Recommendations Gastrostomy culture: f/u results Status: Acute (2) UTI (urinary tract infection) Assessment and Plan: UA: 1+protein 3+ blood, 3+ Leuk Esterase, WBC 134, RBC 519, Occ bacteria, Occ yeast Afebrile Discontinued Garcia Cipro 500mg PO BID Urine cx: f/u results Status: Acute (3) Diabetes mellitus Assessment and Plan: Patient denies hx of DM A1c (11/30/17): 7.2 ISS Hypoglycemia protocol Accuchecks Continue to monitor Status: Acute (4) COPD (chronic obstructive pulmonary disease) Assessment and Plan: Former heavy smoker (60 pack-years) Chest xray: f/u results Was discharged from hospital on 12/16/16 with prescription for cipro 500mg PO BID for hospital acquired pneumonia Continue Cipro 500mg PO BID Duonebs and mucomyst Q6h Solumedrol 20mg IV Q12h Status: Acute (5) Laryngeal cancer Assessment and Plan: 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 Needs continuous tracheostomy care. Status: Acute (6) HTN (hypertension) Assessment and Plan: Continue home medications: Losartan 25mg PO daily, Coreg 3.125mg PO BID Continue to monitor Status: Acute (7) Prophylactic measure Assessment and Plan: Pepcid 20mg PO BID SCDs Rosalba Menendez DO PGY1 <Kanu Ortiz - Last Filed: 12/19/17 17:21> Objective - Vital Signs/Intake and Output Vital Signs (last 24 hours): Temp Pulse Resp BP Pulse Ox 98.2 F 64 20 150/85 99 12/19/17 16:00 12/19/17 16:00 12/19/17 16:00 12/19/17 16:00 12/19/17 16:00 Intake and Output: 12/19/17 12/19/17 06:59 18:59 Intake Total 0 Output Total 450 Balance -450 - Medications Medications: Current Medications Acetylcysteine (Acetylcysteine 20%) 4 ml INH RQ6 [facility] Last Admin: 12/19/17 13:38 Dose: 4 ml Albuterol/Ipratropium (Duoneb 3 Mg/0.5 Mg (3 Ml) Ud) 3 ml INH RQ6 [facility] Last Admin: 12/19/17 13:38 Dose: 3 ml Carvedilol (Coreg) 3.125 mg GT BID [facility] Last Admin: 12/19/17 11:20 Dose: Not Given Clopidogrel Bisulfate (Plavix) 75 mg GT DAILY [facility] Last Admin: 12/19/17 11:19 Dose: Not Given Famotidine (Pepcid) 40 mg GT DAILY [facility] Last Admin: 12/19/17 11:19 Dose: Not Given Dextrose/Lactated Ringer's (Dextrose 5%/Lactated Ringer's) 1,000 mls @ 100 mls/ hr IV .Q10H [facility] Last Admin: 12/19/17 10:00 Dose: 100 mls/hr Ciprofloxacin (Cipro 400mg/200ml Dsw) 400 mg in 200 mls @ 133 mls/hr IVPB Q12H [facility] PRN Reason: Protocol Last Admin: 12/19/17 15:13 Dose: 133 mls/hr Insulin Human Regular (Novolin R) 0 unit SC ACHS [facility] PRN Reason: Protocol Last Admin: 12/19/17 12:25 Dose: Not Given Losartan Potassium (Cozaar) 25 mg GT DAILY [facility] Last Admin: 12/19/17 11:19 Dose: Not Given Methylprednisolone (Solu-Medrol) 20 mg IV Q12 [facility] Last Admin: 12/19/17 11:00 Dose: 20 mg Rosuvastatin Calcium (Crestor) 10 mg GT HS [facility] - Labs Labs: 12/19/17 11:07 12/19/17 07:47 PT 10.7 SECONDS (9.7-12.2) 12/19/17 16:20 INR 1.0 12/19/17 16:20 APTT 26 SECONDS (21-34) 12/19/17 16:20 Attending/Attestation - Attestation I have personally seen and examined this patient.: Yes I have fully participated in the care of the patient.: Yes I have reviewed all pertinent clinical information, including history, physical exam and plan: Yes Notes (Text): Seen and examined by me. Lying comfortable without discomfort, She was tereza back from rehab for evaluation of GT site leakage PEG was checked with RN . It is leaking at stoma.Not clogged ? The entrance site is sutured and secure. Patient's UA consistent with UTI. No fever.She is on CIpro. Discharge to rehab on 3 days of cipro as per ID/Trach infection I will continue IV cipro,keep NPO,IV fluds follow surgery d/w Resident I agree with the resident's documentation
[2017-12-19 11:16] LABS: BASO % 0.6 % (0.0-2.0); EOS % 0.4 % (0.0-4.0); HEMOGLOBIN 11.1 g/dL (11.0-16.0); LYMPH # 1.1 K/uL (1.0-4.3); MEAN CELL VOLUME 85.3 fL (81.0-99.0); MEAN CORPUSCULAR HEMOGLOBIN 29.7 pg (27.0-31.0); MEAN CORPUSCULAR HGB CONC 34.8 g/dL (33.0-37.0); MEAN PLATELET VOLUME 7.6 fL (7.2-11.7); MONO # 0.8 K/uL (0.0-0.8); MONO % 11.1 % (0.0-10.0); NEUT # 4.9 K/uL (1.8-7.0); NEUT % 71.9 % (50.0-75.0); RBC 3.73 Mil/uL (3.80-5.20); RED CELL DISTRIBUTION WIDTH 16.8 % (11.5-14.5); WHITE BLOOD COUNT 6.8 K/uL (4.8-10.8)
[2017-12-19] MEDS: Ciprofloxacin 400mg/200ml D5W 400 MG/200 ML BAG IVPB SCH (15:13)
[2017-12-19 16:31] LABS: PROTHROMBIN TIME 10.7 SECONDS (9.7-12.2)
[2017-12-20] MEDS: Dextrose 5%/Lactated Ringer's 1,000 ML IV SCH ×3 (01:24→15:00)
[2017-12-20] MEDS: Acetylcysteine 20% Inhal Soln (4ml) INH SCH ×4 (01:45→20:30)
[2017-12-20] MEDS: Albuterol-Ipratrop 3 mg / 0.5 (3 ml) UD INH SCH ×4 (01:45→20:30)
[2017-12-20] MEDS: Ciprofloxacin 400mg/200ml D5W 400 MG/200 ML BAG IVPB SCH ×2 (02:27→14:16)
--- NOTE | 2017-12-20 06:31 | CP.PCM.PN ---
<Blas Garcia - Last Filed: 12/20/17 08:00> Subjective - Date & Time of Evaluation Date of Evaluation: 12/20/17 Time of Evaluation: 04:00 - Subjective Subjective: Surgery- Dr. Gamez Patient seen and examined at bedside this AM. Drainage from around the insertion site of the G-Tube turned from clear to dark succus. position further out than yesterday. at 1cm. Tenderness around incision site only. Abd is soft. Patient is visibly nervous about her status. Denies Nausea, vomiting. Objective - Vital Signs/Intake and Output Vital Signs (last 24 hours): Temp Pulse Resp BP Pulse Ox 98.1 F 70 20 160/84 H 100 12/20/17 03:30 12/20/17 03:30 12/20/17 03:30 12/20/17 03:30 12/20/17 03:30 Intake and Output: 12/19/17 12/20/17 18:59 06:59 Intake Total 0 600 Output Total 450 Balance -450 600 - Medications Medications: Current Medications Acetylcysteine (Acetylcysteine 20%) 4 ml INH RQ6 [facility] Last Admin: 12/20/17 01:45 Dose: 4 ml Albuterol/Ipratropium (Duoneb 3 Mg/0.5 Mg (3 Ml) Ud) 3 ml INH RQ6 [facility] Last Admin: 12/20/17 01:45 Dose: 3 ml Carvedilol (Coreg) 3.125 mg GT BID [facility] Last Admin: 12/19/17 21:46 Dose: Not Given Clopidogrel Bisulfate (Plavix) 75 mg GT DAILY [facility] Last Admin: 12/19/17 11:19 Dose: Not Given Famotidine (Pepcid) 40 mg GT DAILY [facility] Last Admin: 12/19/17 11:19 Dose: Not Given Dextrose/Lactated Ringer's (Dextrose 5%/Lactated Ringer's) 1,000 mls @ 100 mls/ hr IV .Q10H [facility] Last Admin: 12/20/17 05:22 Dose: Not Given Ciprofloxacin (Cipro 400mg/200ml Dsw) 400 mg in 200 mls @ 133 mls/hr IVPB Q12H [facility] PRN Reason: Protocol Last Admin: 12/20/17 02:27 Dose: 133 mls/hr Insulin Human Regular (Novolin R) 0 unit SC ACHS [facility] PRN Reason: Protocol Last Admin: 12/19/17 21:55 Dose: Not Given Losartan Potassium (Cozaar) 25 mg GT DAILY [facility] Last Admin: 12/19/17 11:19 Dose: Not Given Methylprednisolone (Solu-Medrol) 20 mg IV Q12 [facility] Last Admin: 12/19/17 21:49 Dose: 20 mg Rosuvastatin Calcium (Crestor) 10 mg GT HS [facility] Last Admin: 12/19/17 21:54 Dose: Not Given - Labs Labs: 12/19/17 11:07 12/19/17 07:47 PT 10.7 SECONDS (9.7-12.2) 12/19/17 16:20 INR 1.0 12/19/17 16:20 APTT 26 SECONDS (21-34) 12/19/17 16:20 - Constitutional Appears: Non-toxic, No Acute Distress, Older Than Stated Age, Chronically Ill - Eye Exam Eye Exam: EOMI. absent: Scleral icterus - ENT Exam ENT Exam: Mucous Membranes Moist - Respiratory Exam Respiratory Exam: NORMAL BREATHING PATTERN. absent: Accessory Muscle Use, Respiratory Distress Additional comments: on Trach collar - Cardiovascular Exam Cardiovascular Exam: Bradycardia, Tachycardia, +S1, +S2 - GI/Abdominal Exam GI & Abdominal Exam: Soft, Tenderness (around insertion site of G-Tube). absent : Distended, Firm, Guarding, Rigid Additional comments: no signs of skin excoration dark drainage from around the incision site of G-Tube. - Extremities Exam Extremities Exam: absent: Calf Tenderness - Neurological Exam Neurological Exam: Alert, Awake - Skin Skin Exam: Intact, Warm Assessment and Plan - Assessment and Plan (Free Text) Assessment: 72F w/ malfunctioning G-Tube Plan: - Hold tube feeds - IVF - plan for Tube study - further recs per Dr. Gamez surgical attending PGY1 <Pop Gamez - Last Filed: 12/24/17 18:05> Objective - Vital Signs/Intake and Output Vital Signs (last 24 hours): Temp Pulse Resp BP Pulse Ox 98.1 F 71 18 148/82 99 12/24/17 15:43 12/24/17 16:16 12/24/17 15:43 12/24/17 15:43 12/24/17 15:43 Intake and Output: 12/24/17 12/24/17 06:59 18:59 Intake Total 490 Balance 490 - Medications Medications: Current Medications Acetylcysteine (Acetylcysteine 20%) 4 ml INH RQ6 [facility] Last Admin: 12/24/17 13:41 Dose: 4 ml Albuterol/Ipratropium (Duoneb 3 Mg/0.5 Mg (3 Ml) Ud) 3 ml INH RQ6 [facility] Last Admin: 12/24/17 13:41 Dose: 3 ml Amlodipine Besylate (Norvasc) 5 mg PEG DAILY [facility] Last Admin: 12/24/17 12:09 Dose: 5 mg Carvedilol (Coreg) 3.125 mg GT BID [facility] Last Admin: 12/24/17 17:49 Dose: 3.125 mg Clopidogrel Bisulfate (Plavix) 75 mg GT DAILY [facility] Last Admin: 12/24/17 12:03 Dose: 75 mg Enoxaparin Sodium (Lovenox) 40 mg SC DAILY [facility] Famotidine (Pepcid) 40 mg GT DAILY [facility] Last Admin: 12/24/17 12:03 Dose: 40 mg Fluconazole (Diflucan) 200 mg PEG DAILY [facility] PRN Reason: Protocol Stop: 01/04/18 10:00 Last Admin: 12/24/17 12:03 Dose: 200 mg Hydralazine HCl (Apresoline) 10 mg IVP Q6H [facility] PRN Reason: Systolic Blood Pressure Last Admin: 12/23/17 23:51 Dose: 10 mg Insulin Human Regular (Novolin R) 0 unit SC [facility] PRN Reason: Protocol Last Admin: 12/24/17 17:47 Dose: 3 unit Ketorolac Tromethamine (Toradol) 30 mg IVP Q6 [facility] PRN Reason: Pain, moderate (4-7) Last Admin: 12/22/17 09:41 Dose: 30 mg Lidocaine (Lidoderm) 1 ea TD DAILY [facility] Last Admin: 12/24/17 12:04 Dose: 1 ea Losartan Potassium (Cozaar) 25 mg GT DAILY [facility] Last Admin: 12/24/17 12:09 Dose: 25 mg Methylprednisolone (Solu-Medrol) 20 mg IV Q12 [facility] Last Admin: 12/24/17 12:03 Dose: 20 mg Rosuvastatin Calcium (Crestor) 10 mg GT HS [facility] Last Admin: 05/31/18 21:52 Dose: 10 mg - Labs Labs: 12/24/17 07:38 12/24/17 07:38 PT 10.7 SECONDS (9.7-12.2) 12/19/17 16:20 INR 1.0 12/19/17 16:20 APTT 26 SECONDS (21-34) 12/19/17 16:20 Attending/Attestation - Attestation I have personally seen and examined this patient.: Yes I have fully participated in the care of the patient.: Yes I have reviewed all pertinent clinical information, including history, physical exam and plan: Yes Notes (Text): Pt is seen and examined at bedside Agree with above note and assessment Tube study today Plan d.w pt in detail c/w current mx
[2017-12-20 07:33] LABS: BASO % 0.1 % (0.0-2.0); HEMOGLOBIN 11.7 g/dL (11.0-16.0); LYMPH # 0.5 K/uL (1.0-4.3); LYMPH % 8.4 % (20.0-40.0); MEAN CORPUSCULAR HEMOGLOBIN 29.7 pg (27.0-31.0); MEAN PLATELET VOLUME 7.9 fL (7.2-11.7); MONO # 0.4 K/uL (0.0-0.8); MONO % 6.4 % (0.0-10.0); NEUT % 85.1 % (50.0-75.0); PLATELET COUNT 185 K/uL (130-400); RBC 3.93 Mil/uL (3.80-5.20); RED CELL DISTRIBUTION WIDTH 16.5 % (11.5-14.5); WHITE BLOOD COUNT 5.9 K/uL (4.8-10.8)
[2017-12-20 07:57] LABS: ALB/GLOB RATIO 1.1 (1.0-2.1); ALT/SGPT 36 U/L (9-52); AST/SGOT 31 U/L (14-36); BLOOD UREA NITROGEN 21 mg/dL (7-17); CALCIUM 8.4 mg/dl (8.6-10.4); GFR AFRICAN-AMERICAN > 60; GFR NON-AFRICAN AMERICAN > 60
[2017-12-20] MEDS ORDERED: Iohexol 350mg/ml 100 ML ONE (08:13)
--- NOTE | 2017-12-20 08:13 | CP.PCM.PN ---
Objective - Vital Signs/Intake and Output Vital Signs (last 24 hours): Temp Pulse Resp BP Pulse Ox 98.1 F 70 20 160/84 H 100 12/20/17 03:30 12/20/17 03:30 12/20/17 03:30 12/20/17 03:30 12/20/17 03:30 Intake and Output: 12/20/17 12/20/17 06:59 18:59 Intake Total 600 700 Balance 600 700 - Medications Medications: Current Medications Acetylcysteine (Acetylcysteine 20%) 4 ml INH RQ6 [facility] Last Admin: 12/20/17 07:52 Dose: 4 ml Albuterol/Ipratropium (Duoneb 3 Mg/0.5 Mg (3 Ml) Ud) 3 ml INH RQ6 [facility] Last Admin: 12/20/17 07:52 Dose: 3 ml Carvedilol (Coreg) 3.125 mg GT BID [facility] Last Admin: 12/19/17 21:46 Dose: Not Given Clopidogrel Bisulfate (Plavix) 75 mg GT DAILY [facility] Last Admin: 12/19/17 11:19 Dose: Not Given Famotidine (Pepcid) 40 mg GT DAILY [facility] Last Admin: 12/19/17 11:19 Dose: Not Given Dextrose/Lactated Ringer's (Dextrose 5%/Lactated Ringer's) 1,000 mls @ 100 mls/ hr IV .Q10H [facility] Last Admin: 12/20/17 05:22 Dose: Not Given Ciprofloxacin (Cipro 400mg/200ml Dsw) 400 mg in 200 mls @ 133 mls/hr IVPB Q12H [facility] PRN Reason: Protocol Last Admin: 12/20/17 02:27 Dose: 133 mls/hr Insulin Human Regular (Novolin R) 0 unit SC ACHS [facility] PRN Reason: Protocol Last Admin: 12/19/17 21:55 Dose: Not Given Losartan Potassium (Cozaar) 25 mg GT DAILY [facility] Last Admin: 12/19/17 11:19 Dose: Not Given Methylprednisolone (Solu-Medrol) 20 mg IV Q12 [facility] Last Admin: 12/19/17 21:49 Dose: 20 mg Rosuvastatin Calcium (Crestor) 10 mg GT HS [facility] Last Admin: 12/19/17 21:54 Dose: Not Given - Labs Labs: 12/20/17 07:13 12/20/17 07:13 PT 10.7 SECONDS (9.7-12.2) 12/19/17 16:20 INR 1.0 12/19/17 16:20 APTT 26 SECONDS (21-34) 12/19/17 16:20
[2017-12-20] MEDS: (Novolin R) Insulin Human Regular 100 units/ml vial SC SCH ×4 (08:47→21:41)
[2017-12-20 08:57] LABS: LYMPHOCYTE 8 % (20-40); MONOCYTE 4 % (0-10); NEUTROPHIL 88 % (50-75); PLATELET ESTIMATE NORMAL (NORMAL); TOTAL CELLS COUNTED 100
--- NOTE | 2017-12-20 08:57 | RAD ---
HISTORY: Leak around Gastrostomy site COMPARISON: None. TECHNIQUE: Abdomen KUB radiographs have been performed both prior to and following injection of Omnipaque 350 through a pre-existing gastrostomy tube. FINDINGS: Preliminary radiograph reveals nonobstructive bowel gas pattern though gas seen mildly distending numerous small bowel loops in the central abdomen and retained fecal material and gas occupy the large bowel, right greater than left hemicolon. Tubing is seen the left upper quadrant suggestive of the patient's known gastrostomy tube terminating in the region the gastric viscus. Following I dated contrast administration, initially image demonstrates opacification of the distal portion the tubing as well as the gastric viscus with the bulb situated in the region of the distal fundus. Trace oral trace iodinated contrast material is seen opacifying the proximal duodenum and delayed images demonstrate multifocal small bowel opacification without definitive extravasation of the contrast material. Leakage of iodinated contrast material is appreciated at the left jesica of data abdomen wall however. OTHER FINDINGS: None. IMPRESSION: Gastrostomy tube inserts into the gastric fundus however extravasation is seen along the tubing entry site down the lateral left jesica abdominal wall. No intravasation on or peritoneal extravasation appreciable as imaged. If further clinical concern remains, then follow-up CT without contrast may be helpful for further characterization.
[2017-12-20 08:58] LABS: ANISOCYTOSIS SLIGHT; HYPOCHROMIC SLIGHT; POLYCHROMIC SLIGHT
--- NOTE | 2017-12-20 11:26 | CP.PCM.PN ---
Subjective - Date & Time of Evaluation Date of Evaluation: 12/20/17 Time of Evaluation: 11:20 - Subjective Subjective: Patient is well known to hospitalist service This admission she was having trouble with the G tube. It was not functioning. 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 She says she has some tenderness on exam at the site of the G tube. The skin is not erethematous, but she has tenderness aorund the site Currently on Cipro for UTI Objective - Vital Signs/Intake and Output Vital Signs (last 24 hours): Temp Pulse Resp BP Pulse Ox 98.2 F 62 20 157/85 H 97 12/20/17 07:18 12/20/17 07:18 12/20/17 07:18 12/20/17 07:18 12/20/17 07:18 Intake and Output: 12/20/17 12/20/17 06:59 18:59 Intake Total 600 700 Balance 600 700 - Medications Medications: Current Medications Acetylcysteine (Acetylcysteine 20%) 4 ml INH RQ6 [facility] Last Admin: 12/20/17 07:52 Dose: 4 ml Albuterol/Ipratropium (Duoneb 3 Mg/0.5 Mg (3 Ml) Ud) 3 ml INH RQ6 [facility] Last Admin: 12/20/17 07:52 Dose: 3 ml Carvedilol (Coreg) 3.125 mg GT BID [facility] Last Admin: 12/20/17 10:56 Dose: Not Given Clopidogrel Bisulfate (Plavix) 75 mg GT DAILY [facility] Last Admin: 12/20/17 10:57 Dose: Not Given Famotidine (Pepcid) 40 mg GT DAILY [facility] Last Admin: 12/20/17 10:57 Dose: Not Given Dextrose/Lactated Ringer's (Dextrose 5%/Lactated Ringer's) 1,000 mls @ 100 mls/ hr IV .Q10H [facility] Last Admin: 12/20/17 05:22 Dose: Not Given Ciprofloxacin (Cipro 400mg/200ml Dsw) 400 mg in 200 mls @ 133 mls/hr IVPB Q12H [facility] PRN Reason: Protocol Last Admin: 12/20/17 02:27 Dose: 133 mls/hr Insulin Human Regular (Novolin R) 0 unit SC ACHS [facility] PRN Reason: Protocol Last Admin: 12/20/17 08:47 Dose: Not Given Losartan Potassium (Cozaar) 25 mg GT DAILY [facility] Last Admin: 12/20/17 10:57 Dose: Not Given Methylprednisolone (Solu-Medrol) 20 mg IV Q12 [facility] Last Admin: 12/19/17 21:49 Dose: 20 mg Rosuvastatin Calcium (Crestor) 10 mg GT HS [facility] Last Admin: 12/19/17 21:54 Dose: Not Given - Labs Labs: 12/20/17 07:13 12/20/17 07:13 PT 10.7 SECONDS (9.7-12.2) 12/19/17 16:20 INR 1.0 12/19/17 16:20 APTT 26 SECONDS (21-34) 12/19/17 16:20 - Constitutional Appears: Unkempt, Cachectic, Chronically Ill - Eye Exam Eye Exam: EOMI, Normal appearance - ENT Exam ENT Exam: Mucous Membranes Moist Additional comments: Tracheostomy - Respiratory Exam Respiratory Exam: Rales, Rhonchi - Cardiovascular Exam Cardiovascular Exam: REGULAR RHYTHM - GI/Abdominal Exam GI & Abdominal Exam: Soft, Tenderness. absent: Distended, Firm, Guarding, Rigid Additional comments: G tube - skin around the g tube is not red or erethematous. She has tenderness around the site - Neurological Exam Neurological Exam: Alert, Awake Neuro motor strength exam: Left Upper Extremity: 5, Right Upper Extremity: 5, Left Lower Extremity: 5, Right Lower Extremity: 5 - Psychiatric Exam Psychiatric exam: Normal Affect, Normal Mood - Skin Skin Exam: Pallor, Warm Assessment and Plan - Assessment and Plan (Free Text) Assessment: (1) Gastrostomy site leak Assessment and Plan: General Surgery consulted, Dr. Gamez; help appreciated 12/20: Patient underwent G tube study showing extravasation along the tubing entry site on the left lateral jesica abdominal area. 10/12/17 Patient had a PEG placed by Dr. Gupta. For PEG tube dysfunction, 11/24/17 Patient had G tube placed by Dr. Gamez 12/[address] Gamez for gastrostomy tube dysfunction f/u General Surgery Recommendations Gastrostomy culture: f/u results (2) UTI (urinary tract infection) Assessment and Plan: 12/20: Pending the urine culture/ She is on IV Cipro 400 BID UA: 1+protein 3+ blood, 3+ Leuk Esterase, WBC 134, RBC 519, Occ bacteria, Occ yeast Afebrile Discontinued Garcia Cipro 500mg PO BID Urine cx: f/u results (3) Diabetes mellitus Assessment and Plan: Patient denies hx of DM A1c (11/30/17): 7.2 ISS Hypoglycemia protocol Accuchecks Continue to monitor (4) COPD (chronic obstructive pulmonary disease) Assessment and Plan: Former heavy smoker (60 pack-years) Chest xray: f/u results Was discharged from hospital on 12/16/16 with prescription for cipro 500mg PO BID for hospital acquired pneumonia Continue Cipro 500mg PO BID Duonebs and mucomyst Q6h Solumedrol 20mg IV Q12h (5) Laryngeal cancer Assessment and Plan: 12/20: The family wants chemotherapy - however everytime we try to get her to rehab - something else happens and she comes back to the hospital. She is mostly bed bound. 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 Needs continuous tracheostomy care. (6) HTN (hypertension) Assessment and Plan: Continue home medications: Losartan 25mg PO daily, Coreg 3.125mg PO BID Continue to monitor (7) Prophylactic measure Assessment and Plan: Pepcid 20mg PO BID
[2017-12-20] MEDS: MethylPREDNISolone 40 mg Vial IV SCH ×2 (11:31→21:39)
[2017-12-21] MEDS: Dextrose 5%/Lactated Ringer's 1,000 ML IV SCH (01:00)
[2017-12-21] MEDS: Acetylcysteine 20% Inhal Soln (4ml) INH SCH ×3 (01:36→13:23)
[2017-12-21] MEDS: Albuterol-Ipratrop 3 mg / 0.5 (3 ml) UD INH SCH ×3 (01:37→13:23)
[2017-12-21] MEDS: Ciprofloxacin 400mg/200ml D5W 400 MG/200 ML BAG IVPB SCH (03:05)
--- NOTE | 2017-12-21 07:12 | CP.PCM.PN ---
<Gi Garcia - Last Filed: 12/21/17 12:41> Subjective - Date & Time of Evaluation Date of Evaluation: 12/21/17 Time of Evaluation: 07:00 - Subjective Subjective: Medicine Progress Note: Patient was seen and examined at bedside in the AM. Patient stated she was having some abdominal pain and agreed to pain medication to be given at that time. Patient denied chest pain, palpitations, fever, nausea or vomiting. Objective - Vital Signs/Intake and Output Vital Signs (last 24 hours): Temp Pulse Resp BP Pulse Ox 98 F 73 20 190/99 H 99 12/21/17 00:00 12/21/17 00:00 12/21/17 00:00 12/21/17 00:00 12/21/17 00:00 - Medications Medications: Current Medications Acetylcysteine (Acetylcysteine 20%) 4 ml INH RQ6 [facility] Last Admin: 12/21/17 01:36 Dose: 4 ml Albuterol/Ipratropium (Duoneb 3 Mg/0.5 Mg (3 Ml) Ud) 3 ml INH RQ6 [facility] Last Admin: 12/21/17 01:37 Dose: 3 ml Carvedilol (Coreg) 3.125 mg GT BID [facility] Last Admin: 12/20/17 21:41 Dose: Not Given Clopidogrel Bisulfate (Plavix) 75 mg GT DAILY [facility] Last Admin: 12/20/17 10:57 Dose: Not Given Famotidine (Pepcid) 40 mg GT DAILY [facility] Last Admin: 12/20/17 10:57 Dose: Not Given Dextrose/Lactated Ringer's (Dextrose 5%/Lactated Ringer's) 1,000 mls @ 100 mls/ hr IV .Q10H [facility] Last Admin: 12/21/17 01:00 Dose: Not Given Ciprofloxacin (Cipro 400mg/200ml Dsw) 400 mg in 200 mls @ 133 mls/hr IVPB Q12H [facility] PRN Reason: Protocol Last Admin: 12/21/17 03:05 Dose: 133 mls/hr Insulin Human Regular (Novolin R) 0 unit SC ACHS [facility] PRN Reason: Protocol Last Admin: 12/20/17 21:41 Dose: Not Given Losartan Potassium (Cozaar) 25 mg GT DAILY [facility] Last Admin: 12/20/17 10:57 Dose: Not Given Methylprednisolone (Solu-Medrol) 20 mg IV Q12 [facility] Last Admin: 12/20/17 21:39 Dose: 20 mg Rosuvastatin Calcium (Crestor) 10 mg GT HS [facility] Last Admin: 12/20/17 21:41 Dose: Not Given - Labs Labs: 12/20/17 07:13 12/20/17 07:13 PT 10.7 SECONDS (9.7-12.2) 12/19/17 16:20 INR 1.0 12/19/17 16:20 APTT 26 SECONDS (21-34) 12/19/17 16:20 - Constitutional Appears: No Acute Distress, Chronically Ill - Head Exam Head Exam: ATRAUMATIC, NORMAL INSPECTION - Eye Exam Eye Exam: EOMI, Normal appearance - ENT Exam ENT Exam: Mucous Membranes Moist - Neck Exam Additional comments: Trach collar in place - Respiratory Exam Respiratory Exam: NORMAL BREATHING PATTERN - Cardiovascular Exam Cardiovascular Exam: REGULAR RHYTHM, +S1, +S2 - GI/Abdominal Exam GI & Abdominal Exam: Soft, Tenderness, Normal Bowel Sounds - Extremities Exam Extremities Exam: Normal Inspection - Neurological Exam Neurological Exam: Alert, Awake, Oriented x3 - Psychiatric Exam Psychiatric exam: Normal Affect - Skin Skin Exam: Normal Color Assessment and Plan - Assessment and Plan (Free Text) Assessment: All PEG medications and tube feedings are currently on hold. Patient currently transferred to [facility] Since PEG medications are currently on hold - started patient on Hydralazine 10mg IV q6 prn for systolic BP >160 Gastrostomy site leak General Surgery consulted, Dr. Gamez; help appreciated 12/20: Patient underwent G tube study showing extravasation along the tubing entry site on the left lateral jesica abdominal area. 10/12/17 Patient had a PEG placed by Dr. Gupta. For PEG tube dysfunction, 11/24/17 Patient had G tube placed by Dr. Gamez Surgery consult Dr. Gamez for gastrostomy tube dysfunction IR consult placed by Surgery: Dr. Ruby --> help appreciated Toradol 30mg IV q6prn for pain f/u General Surgery Recommendations Gastrostomy culture: f/u results UTI 12/20: Pending the urine culture/ She is on IV Cipro 400 BID UA: 1+protein 3+ blood, 3+ Leuk Esterase, WBC 134, RBC 519, Occ bacteria, Occ yeast Afebrile Discontinued Garcia Cipro 500mg PO BID discontinued 12/21/17 due to interaction with Fluconzole and started Zosyn 3.375gm IV q8h (started on 12/21/17) Urine cx: yeast * Started Fluconazole 200mg IV daily for 2 weeks (stop date 01/04/18) History of Diabetes mellitus Patient denies hx of DM A1c (11/30/17): 7.2 ISS Hypoglycemia protocol Accuchecks Continue to monitor History of COPD Former heavy smoker (60 pack-years) Chest xray: f/u results Was discharged from hospital on 12/16/16 with prescription for cipro 500mg PO BID for hospital acquired pneumonia Continue Cipro 500mg PO BID Duonebs and mucomyst Q6h Solumedrol 20mg IV Q12h Laryngeal cancer 12/20: The family wants chemotherapy - however everytime we try to get her to rehab - something else happens and she comes back to the hospital. She is mostly bed bound. 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 Needs continuous tracheostomy care. History of HTN Continue home medications: Losartan 25mg PO daily, Coreg 3.125mg PO BID Since PEG medications are currently on hold - started patient on Hydralazine 10mg IV q6 prn for systolic BP >160 Continue to monitor Prophylaxis: Protonix 40mg IV daily SCDs Palliative Care Consult for Code Status Case discussed with Dr. Beatriz Garcia PGY-1 <Chavez Henderson H - Last Filed: 12/21/17 15:29> Objective - Vital Signs/Intake and Output Vital Signs (last 24 hours): Temp Pulse Resp BP Pulse Ox 98 F 60 20 185/98 H 100 12/21/17 08:00 12/21/17 08:00 12/21/17 08:00 12/21/17 08:00 12/21/17 08:00 Intake and Output: 12/21/17 12/21/17 06:59 18:59 Intake Total 800 Balance 800 - Medications Medications: Current Medications Acetylcysteine (Acetylcysteine 20%) 4 ml INH RQ6 [facility] Last Admin: 12/21/17 13:23 Dose: 4 ml Albuterol/Ipratropium (Duoneb 3 Mg/0.5 Mg (3 Ml) Ud) 3 ml INH RQ6 [facility] Last Admin: 12/21/17 13:23 Dose: 3 ml Carvedilol (Coreg) 3.125 mg GT BID [facility] Last Admin: 12/21/17 09:38 Dose: Not Given Clopidogrel Bisulfate (Plavix) 75 mg GT DAILY [facility] Last Admin: 12/21/17 09:40 Dose: Not Given Famotidine (Pepcid) 40 mg GT DAILY [facility] Last Admin: 12/21/17 09:39 Dose: Not Given Fluconazole (Diflucan) 200 mg PEG DAILY [facility] PRN Reason: Protocol Stop: 01/04/18 10:00 Last Admin: 12/21/17 09:39 Dose: Not Given Hydralazine HCl (Apresoline) 10 mg IVP Q6H [facility] PRN Reason: Systolic Blood Pressure Piperacillin Sod/Tazobactam Sod (Zosyn 3.375 Gm Iv Premix) 3.375 gm in 50 mls @ 100 mls/hr IVPB Q8H [facility] PRN Reason: Protocol Last Admin: 12/21/17 11:11 Dose: 100 mls/hr Dextrose (Dextrose 5% In Water 1000 Ml) 1,000 mls @ 40 mls/hr IV .Q24H [facility] Last Admin: 12/21/17 11:10 Dose: 40 mls/hr Fluconazole (Diflucan Iv 200 Mg/100 Ml Ns) 100 mls @ 100 mls/hr IVPB DAILY [facility] PRN Reason: Protocol Last Admin: 12/21/17 11:47 Dose: 100 mls/hr Insulin Human Regular (Novolin R) 0 unit SC ACHS [facility] PRN Reason: Protocol Last Admin: 12/21/17 11:53 Dose: 2 unit Ketorolac Tromethamine (Toradol) 30 mg IVP Q6 [facility] PRN Reason: Pain, moderate (4-7) Last Admin: 12/21/17 09:25 Dose: 30 mg Losartan Potassium (Cozaar) 25 mg GT DAILY [facility] Last Admin: 12/21/17 09:39 Dose: Not Given Methylprednisolone (Solu-Medrol) 20 mg IV Q12 [facility] Last Admin: 12/21/17 09:32 Dose: 20 mg Pantoprazole Sodium (Protonix Inj) 40 mg IVP DAILY [facility] Rosuvastatin Calcium (Crestor) 10 mg GT HS [facility] Last Admin: 12/20/17 21:41 Dose: Not Given - Labs Labs: 12/21/17 07:51 12/21/17 07:51 PT 10.7 SECONDS (9.7-12.2) 12/19/17 16:20 INR 1.0 12/19/17 16:20 APTT 26 SECONDS (21-34) 12/19/17 16:20 Attending/Attestation - Attestation I have personally seen and examined this patient.: Yes I have fully participated in the care of the patient.: Yes I have reviewed all pertinent clinical information, including history, physical exam and plan: Yes Notes (Text): Medical Attending: Patient was seen and examined by me, agree with the above note by auditor medical claims. Today I spoke very extensively with the patient's daughter, Letty Harrison. Today the daughter was very upset with we again had a very long conversation. The patient as well as family member under a tremendous amount of stress at this time. The G-tube continues to not be able to work, there is some dark purulent material around the ostomy site tube. Surgery has asked if IR would be able to replace the tube She remains on the IV Cipro at this time She did not want more pain medication at this time With regards to her elevated blood pressures, will change intravenous fluids over to D5W, and the rate will be decreased to 40 mL an hour.. Also remembers the patient telemetry so that she could get IV blood pressure medications thank you Chavez Henderson
--- NOTE | 2017-12-21 08:02 | CP.PCM.PN ---
<Cynthia MolinaSeferino - Last Filed: 12/21/17 07:58> Subjective - Date & Time of Evaluation Date of Evaluation: 12/21/17 Time of Evaluation: 07:59 - Subjective Subjective: Surgery: Dr. Gamez Patient denies abdominal pain. Patient s/p gastrograffin tube study which showed some insertion site leakage but no intraperitoneal leakage from tube. Objective - Vital Signs/Intake and Output Vital Signs (last 24 hours): Temp Pulse Resp BP Pulse Ox 98 F 73 20 190/99 H 99 12/21/17 00:00 12/21/17 00:00 12/21/17 00:00 12/21/17 00:00 12/21/17 00:00 - Medications Medications: Current Medications Acetylcysteine (Acetylcysteine 20%) 4 ml INH RQ6 [facility] Last Admin: 12/21/17 07:44 Dose: 4 ml Albuterol/Ipratropium (Duoneb 3 Mg/0.5 Mg (3 Ml) Ud) 3 ml INH RQ6 [facility] Last Admin: 12/21/17 07:44 Dose: 3 ml Carvedilol (Coreg) 3.125 mg GT BID [facility] Last Admin: 12/20/17 21:41 Dose: Not Given Clopidogrel Bisulfate (Plavix) 75 mg GT DAILY [facility] Last Admin: 12/20/17 10:57 Dose: Not Given Famotidine (Pepcid) 40 mg GT DAILY [facility] Last Admin: 12/20/17 10:57 Dose: Not Given Fluconazole (Diflucan) 200 mg PEG DAILY [facility] PRN Reason: Protocol Stop: 01/04/18 10:00 Dextrose/Lactated Ringer's (Dextrose 5%/Lactated Ringer's) 1,000 mls @ 100 mls/ hr IV .Q10H [facility] Last Admin: 12/21/17 01:00 Dose: Not Given Ciprofloxacin (Cipro 400mg/200ml Dsw) 400 mg in 200 mls @ 133 mls/hr IVPB Q12H [facility] PRN Reason: Protocol Last Admin: 12/21/17 03:05 Dose: 133 mls/hr Insulin Human Regular (Novolin R) 0 unit SC ACHS [facility] PRN Reason: Protocol Last Admin: 12/20/17 21:41 Dose: Not Given Losartan Potassium (Cozaar) 25 mg GT DAILY [facility] Last Admin: 12/20/17 10:57 Dose: Not Given Methylprednisolone (Solu-Medrol) 20 mg IV Q12 [facility] Last Admin: 12/20/17 21:39 Dose: 20 mg Rosuvastatin Calcium (Crestor) 10 mg GT HS [facility] Last Admin: 12/20/17 21:41 Dose: Not Given - Labs Labs: 12/20/17 07:13 12/20/17 07:13 PT 10.7 SECONDS (9.7-12.2) 12/19/17 16:20 INR 1.0 12/19/17 16:20 APTT 26 SECONDS (21-34) 12/19/17 16:20 - Constitutional Appears: Non-toxic, No Acute Distress - Head Exam Head Exam: ATRAUMATIC, NORMOCEPHALIC - Eye Exam Eye Exam: EOMI, Normal appearance - ENT Exam ENT Exam: Mucous Membranes Moist - Respiratory Exam Respiratory Exam: absent: Respiratory Distress Additional comments: on trach collar - Cardiovascular Exam Cardiovascular Exam: REGULAR RHYTHM. absent: Tachycardia - GI/Abdominal Exam GI & Abdominal Exam: Soft. absent: Distended, Guarding, Tenderness, Rebound Additional comments: tube insertion site CD w/ no skin excoriation Assessment and Plan - Assessment and Plan (Free Text) Assessment: 72 y/o female with malfunctioning G tube Plan: -IR eval of g tube today, possible replacement -do not use tube at this time -further recs per Dr. Gamez AKWhite PGY3 <Pop Gamez - Last Filed: 12/24/17 18:17> Objective - Vital Signs/Intake and Output Vital Signs (last 24 hours): Temp Pulse Resp BP Pulse Ox 98.1 F 71 18 148/82 99 12/24/17 15:43 12/24/17 16:16 12/24/17 15:43 12/24/17 15:43 12/24/17 15:43 Intake and Output: 12/24/17 12/24/17 06:59 18:59 Intake Total 490 Balance 490 - Medications Medications: Current Medications Acetylcysteine (Acetylcysteine 20%) 4 ml INH RQ6 [facility] Last Admin: 12/24/17 13:41 Dose: 4 ml Albuterol/Ipratropium (Duoneb 3 Mg/0.5 Mg (3 Ml) Ud) 3 ml INH RQ6 [facility] Last Admin: 12/24/17 13:41 Dose: 3 ml Amlodipine Besylate (Norvasc) 5 mg PEG DAILY [facility] Last Admin: 12/24/17 12:09 Dose: 5 mg Carvedilol (Coreg) 3.125 mg GT BID [facility] Last Admin: 12/24/17 17:49 Dose: 3.125 mg Clopidogrel Bisulfate (Plavix) 75 mg GT DAILY [facility] Last Admin: 12/24/17 12:03 Dose: 75 mg Enoxaparin Sodium (Lovenox) 40 mg SC DAILY [facility] Famotidine (Pepcid) 40 mg GT DAILY [facility] Last Admin: 12/24/17 12:03 Dose: 40 mg Fluconazole (Diflucan) 200 mg PEG DAILY [facility] PRN Reason: Protocol Stop: 01/04/18 10:00 Last Admin: 12/24/17 12:03 Dose: 200 mg Hydralazine HCl (Apresoline) 10 mg IVP Q6H [facility] PRN Reason: Systolic Blood Pressure Last Admin: 12/23/17 23:51 Dose: 10 mg Insulin Human Regular (Novolin R) 0 unit SC [facility] PRN Reason: Protocol Last Admin: 12/24/17 17:47 Dose: 3 unit Ketorolac Tromethamine (Toradol) 30 mg IVP Q6 [facility] PRN Reason: Pain, moderate (4-7) Last Admin: 12/22/17 09:41 Dose: 30 mg Lidocaine (Lidoderm) 1 ea TD DAILY [facility] Last Admin: 12/24/17 12:04 Dose: 1 ea Losartan Potassium (Cozaar) 25 mg GT DAILY [facility] Last Admin: 12/24/17 12:09 Dose: 25 mg Methylprednisolone (Solu-Medrol) 20 mg IV Q12 [facility] Last Admin: 12/24/17 12:03 Dose: 20 mg Rosuvastatin Calcium (Crestor) 10 mg GT HS [facility] Last Admin: 12/23/17 21:52 Dose: 10 mg - Labs Labs: 12/24/17 07:38 12/24/17 07:38 PT 10.7 SECONDS (9.7-12.2) 12/19/17 16:20 INR 1.0 12/19/17 16:20 APTT 26 SECONDS (21-34) 12/19/17 16:20 Attending/Attestation - Attestation I have fully participated in the care of the patient.: Yes I have reviewed all pertinent clinical information, including history, physical exam and plan: Yes Notes (Text): Pt with malfunctioning G tube Leak around G tube Consult IR for Replacement of tube Plan d.w pt in detail
[2017-12-21 08:13] LABS: BASO % 0.1 % (0.0-2.0); HEMOGLOBIN 11.8 g/dL (11.0-16.0); LYMPH # 0.3 K/uL (1.0-4.3); LYMPH % 5.2 % (20.0-40.0); MEAN CELL VOLUME 84.2 fL (81.0-99.0); MEAN CORPUSCULAR HEMOGLOBIN 30.4 pg (27.0-31.0); MEAN CORPUSCULAR HGB CONC 36.1 g/dL (33.0-37.0); MEAN PLATELET VOLUME 7.7 fL (7.2-11.7); MONO # 0.3 K/uL (0.0-0.8); MONO % 4.5 % (0.0-10.0); NEUT # 5.6 K/uL (1.8-7.0); NEUT % 90.2 % (50.0-75.0); NRBC % 0.1 % (0.0-2.0); PLATELET COUNT 199 K/uL (130-400); RBC 3.88 Mil/uL (3.80-5.20); RED CELL DISTRIBUTION WIDTH 16.1 % (11.5-14.5); WHITE BLOOD COUNT 6.2 K/uL (4.8-10.8)
[2017-12-21 08:23] LABS: ALB/GLOB RATIO 1.1 (1.0-2.1); ALBUMIN 2.7 g/dL (3.5-5.0); ALT/SGPT 45 U/L (9-52); AST/SGOT 33 U/L (14-36); BLOOD UREA NITROGEN 19 mg/dL (7-17); CALCIUM 8.3 mg/dl (8.6-10.4); GFR AFRICAN-AMERICAN > 60; GFR NON-AFRICAN AMERICAN > 60
[2017-12-21] MEDS: (Novolin R) Insulin Human Regular 100 units/ml vial SC SCH ×4 (08:34→22:56)
[2017-12-21 09:14] LABS: LYMPHOCYTE 6 % (20-40); MONOCYTE 4 % (0-10); NEUTROPHIL 90 % (50-75); TOTAL CELLS COUNTED 100
[2017-12-21 09:15] LABS: PLATELET ESTIMATE NORMAL (NORMAL)
[2017-12-21 09:17] LABS: ANISOCYTOSIS SLIGHT
[2017-12-21] MEDS: MethylPREDNISolone 40 mg Vial IV SCH ×2 (09:32→21:20)
[2017-12-21] MEDS: Piperacill/Tazo 3.375gm in Dex 3.375 GM/50 ML BAG IVPB SCH ×2 (11:11→19:01)
[2017-12-21] MEDS: Fluconazole IV 200mg/100 ml NS 100 ML IVPB SCH (11:47)
[2017-12-22] MEDS: Acetylcysteine 20% Inhal Soln (4ml) INH SCH ×4 (01:58→20:36)
[2017-12-22] MEDS: Albuterol-Ipratrop 3 mg / 0.5 (3 ml) UD INH SCH ×4 (01:58→20:36)
[2017-12-22] MEDS: Piperacill/Tazo 3.375gm in Dex 3.375 GM/50 ML BAG IVPB SCH ×3 (02:54→17:46)
--- NOTE | 2017-12-22 07:13 | CP.PCM.PN ---
<Gi Garcia ÁngelLouise - Last Filed: 12/22/17 11:00> Subjective - Date & Time of Evaluation Date of Evaluation: 12/22/17 Time of Evaluation: 07:00 - Subjective Subjective: Medicine Progress Note: Patient was seen and examined at bedside in the AM. Patient stated she was having some abdominal pain but she states she does not want morphine at this time for her pain. Patient denied chest pain, palpitations, fever, nausea or vomiting. Objective - Vital Signs/Intake and Output Vital Signs (last 24 hours): Temp Pulse Resp BP Pulse Ox 98.2 F 80 20 148/70 98 12/21/17 23:39 12/22/17 00:57 12/21/17 23:39 12/22/17 00:00 12/21/17 23:39 Intake and Output: 12/22/17 12/22/17 06:59 18:59 Intake Total 690 Balance 690 - Medications Medications: Current Medications Acetylcysteine (Acetylcysteine 20%) 4 ml INH RQ6 [facility] Last Admin: 12/22/17 01:58 Dose: 4 ml Albuterol/Ipratropium (Duoneb 3 Mg/0.5 Mg (3 Ml) Ud) 3 ml INH RQ6 [facility] Last Admin: 12/22/17 01:58 Dose: 3 ml Carvedilol (Coreg) 3.125 mg GT BID [facility] Last Admin: 12/21/17 09:38 Dose: Not Given Clopidogrel Bisulfate (Plavix) 75 mg GT DAILY [facility] Last Admin: 12/21/17 09:40 Dose: Not Given Famotidine (Pepcid) 40 mg GT DAILY [facility] Last Admin: 12/21/17 09:39 Dose: Not Given Fluconazole (Diflucan) 200 mg PEG DAILY [facility] PRN Reason: Protocol Stop: 01/04/18 10:00 Last Admin: 12/21/17 09:39 Dose: Not Given Hydralazine HCl (Apresoline) 10 mg IVP Q6H PRN PRN Reason: Systolic Blood Pressure Piperacillin Sod/Tazobactam Sod (Zosyn 3.375 Gm Iv Premix) 3.375 gm in 50 mls @ 100 mls/hr IVPB Q8H [facility] PRN Reason: Protocol Last Admin: 12/22/17 02:54 Dose: 100 mls/hr Dextrose (Dextrose 5% In Water 1000 Ml) 1,000 mls @ 40 mls/hr IV .Q24H [facility] Last Admin: 12/21/17 11:10 Dose: 40 mls/hr Fluconazole (Diflucan Iv 200 Mg/100 Ml Ns) 100 mls @ 100 mls/hr IVPB DAILY [facility] PRN Reason: Protocol Last Admin: 12/21/17 11:47 Dose: 100 mls/hr Insulin Human Regular (Novolin R) 0 unit SC ACHS [facility] PRN Reason: Protocol Last Admin: 12/21/17 22:56 Dose: Not Given Ketorolac Tromethamine (Toradol) 30 mg IVP Q6 PRN PRN Reason: Pain, moderate (4-7) Last Admin: 12/21/17 09:25 Dose: 30 mg Losartan Potassium (Cozaar) 25 mg GT DAILY [facility] Last Admin: 12/21/17 09:39 Dose: Not Given Methylprednisolone (Solu-Medrol) 20 mg IV Q12 [facility] Last Admin: 12/21/17 21:20 Dose: 20 mg Pantoprazole Sodium (Protonix Inj) 40 mg IVP DAILY [facility] Rosuvastatin Calcium (Crestor) 10 mg GT HS [facility] Last Admin: 12/20/17 21:41 Dose: Not Given - Labs Labs: 12/21/17 07:51 12/21/17 07:51 PT 10.7 SECONDS (9.7-12.2) 12/19/17 16:20 INR 1.0 12/19/17 16:20 APTT 26 SECONDS (21-34) 12/19/17 16:20 - Constitutional Appears: No Acute Distress, Chronically Ill - Head Exam Head Exam: ATRAUMATIC, NORMAL INSPECTION - Eye Exam Eye Exam: EOMI, Normal appearance - ENT Exam ENT Exam: Mucous Membranes Moist - Neck Exam Additional comments: Trach collar in place - Respiratory Exam Respiratory Exam: NORMAL BREATHING PATTERN - Cardiovascular Exam Cardiovascular Exam: REGULAR RHYTHM, +S1 - GI/Abdominal Exam GI & Abdominal Exam: Soft, Tenderness, Normal Bowel Sounds Additional comments: blood colored contents around the Gtube area - Extremities Exam Extremities Exam: Normal Inspection - Neurological Exam Neurological Exam: Alert, Awake, Oriented x3 - Psychiatric Exam Psychiatric exam: Normal Affect, Normal Mood - Skin Skin Exam: Normal Color Assessment and Plan - Assessment and Plan (Free Text) Assessment: All PEG medications and tube feedings are currently on hold. Patient currently transferred to Tele Since PEG medications are currently on hold - started patient on Hydralazine 10mg IV q6 prn for systolic BP >150 Gastrostomy site leak General Surgery consulted, Dr. Gamez; help appreciated 12/20: Patient underwent G tube study showing extravasation along the tubing entry site on the left lateral jesica abdominal area. 10/12/17 Patient had a PEG placed by Dr. Gupta. For PEG tube dysfunction, 11/24/17 Patient had G tube placed by Dr. Gamez Surgery consult Dr. Gamez for gastrostomy tube dysfunction IR consult placed by Surgery: Dr. Gupta --> help appreciated - GTube replacement scheduled for 12/22/17 Gastrostomy culture (preliminary): rare polymorphonuclear WBCs; few yeast; rare gram negative rods - Zosyn 3.375gm IV q8h (started on 12/21/17) - Started Fluconazole 200mg IV daily for 2 weeks (stop date 01/04/18) Abdominal Pain - secondary to Gastrostomy site leak - Medications: * Toradol 30mg IV q6prn for pain * Lidocaine TD UTI 12/20: Pending the urine culture/ She is on IV Cipro 400 BID UA: 1+protein 3+ blood, 3+ Leuk Esterase, WBC 134, RBC 519, Occ bacteria, Occ yeast Afebrile Discontinued Garcia Cipro 500mg PO BID discontinued 12/21/17 due to interaction with Fluconzole and started Zosyn 3.375gm IV q8h (started on 12/21/17) Urine Culture: yeast * Started Fluconazole 200mg IV daily for 2 weeks (stop date 01/04/18) History of Diabetes mellitus Patient denies hx of DM A1c (11/30/17): 7.2 ISS Hypoglycemia protocol Accuchecks Continue to monitor History of COPD Former heavy smoker (60 pack-years) Chest xray: f/u results Was discharged from hospital on 12/16/16 with prescription for cipro 500mg PO BID for hospital acquired pneumonia Continue Cipro 500mg PO BID Duonebs and mucomyst Q6h Solumedrol 20mg IV Q12h Laryngeal cancer 12/20: The family wants chemotherapy - however everytime we try to get her to rehab - something else happens and she comes back to the hospital. She is mostly bed bound. 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 Needs continuous tracheostomy care. History of HTN Continue home medications: Losartan 25mg PO daily, Coreg 3.125mg PO BID Since PEG medications are currently on hold - started patient on Hydralazine 10mg IV q6 prn for systolic BP >160 Continue to monitor Prophylaxis: Protonix 40mg IV daily SCD[facility] Palliative Care Consult for Code Status Case discussed with Dr. Beatriz Garcia PGY-1 <Chavez Henderson H - Last Filed: 12/22/17 13:31> Objective - Vital Signs/Intake and Output Vital Signs (last 24 hours): Temp Pulse Resp BP Pulse Ox 98.4 F 82 20 140/60 100 12/22/17 07:00 12/22/17 07:35 12/22/17 07:00 12/22/17 10:59 12/22/17 07:00 Intake and Output: 12/22/17 12/22/17 06:59 18:59 Intake Total 690 500 Balance 690 500 - Medications Medications: Current Medications Acetylcysteine (Acetylcysteine 20%) 4 ml INH RQ6 [facility] Last Admin: 12/22/17 13:06 Dose: Not Given Albuterol/Ipratropium (Duoneb 3 Mg/0.5 Mg (3 Ml) Ud) 3 ml INH RQ6 [facility] Last Admin: 12/22/17 13:07 Dose: Not Given Carvedilol (Coreg) 3.125 mg GT BID [facility] Last Admin: 12/21/17 09:38 Dose: Not Given Clopidogrel Bisulfate (Plavix) 75 mg GT DAILY [facility] Last Admin: 12/21/17 09:40 Dose: Not Given Famotidine (Pepcid) 40 mg GT DAILY [facility] Last Admin: 12/21/17 09:39 Dose: Not Given Fluconazole (Diflucan) 200 mg PEG DAILY [facility] PRN Reason: Protocol Stop: 01/04/18 10:00 Last Admin: 12/21/17 09:39 Dose: Not Given Hydralazine HCl (Apresoline) 10 mg IVP Q6H PRN PRN Reason: Systolic Blood Pressure Last Admin: 12/22/17 09:11 Dose: 10 mg Piperacillin Sod/Tazobactam Sod (Zosyn 3.375 Gm Iv Premix) 3.375 gm in 50 mls @ 100 mls/hr IVPB Q8H [facility] PRN Reason: Protocol Last Admin: 12/22/17 11:00 Dose: 100 mls/hr Dextrose (Dextrose 5% In Water 1000 Ml) 1,000 mls @ 40 mls/hr IV .Q24H [facility] Last Admin: 12/21/17 11:10 Dose: 40 mls/hr Fluconazole (Diflucan Iv 200 Mg/100 Ml Ns) 100 mls @ 100 mls/hr IVPB DAILY [facility] PRN Reason: Protocol Last Admin: 12/22/17 09:17 Dose: 100 mls/hr Insulin Human Regular (Novolin R) 0 unit SC ACHS [facility] PRN Reason: Protocol Last Admin: 12/22/17 11:52 Dose: 1 unit Ketorolac Tromethamine (Toradol) 30 mg IVP Q6 PRN PRN Reason: Pain, moderate (4-7) Last Admin: 12/22/17 09:41 Dose: 30 mg Lidocaine (Lidoderm) 1 ea TD DAILY [facility] Last Admin: 12/22/17 11:05 Dose: 1 ea Losartan Potassium (Cozaar) 25 mg GT DAILY [facility] Last Admin: 12/21/17 09:39 Dose: Not Given Methylprednisolone (Solu-Medrol) 20 mg IV Q12 [facility] Last Admin: 12/22/17 09:11 Dose: 20 mg Pantoprazole Sodium (Protonix Inj) 40 mg IVP DAILY [facility] Last Admin: 12/22/17 09:12 Dose: 40 mg Rosuvastatin Calcium (Crestor) 10 mg GT HS [facility] Last Admin: 12/20/17 21:41 Dose: Not Given - Labs Labs: 12/22/17 07:41 12/22/17 07:41 PT 10.7 SECONDS (9.7-12.2) 12/19/17 16:20 INR 1.0 12/19/17 16:20 APTT 26 SECONDS (21-34) 12/19/17 16:20 Attending/Attestation - Attestation I have personally seen and examined this patient.: Yes I have fully participated in the care of the patient.: Yes I have reviewed all pertinent clinical information, including history, physical exam and plan: Yes Notes (Text): 12/22/17 13:27 Medical attending: Patient was seen and examined by me. Agree with the above note by the resident The patient was able to commnicate to us that she was having pain. We asked the RN to give the IV toradol. I did consider starting a sceduled morphine IV, however the patient was able to write down on a piece of paper that she did NOT want morphine. So instead will try adding a lidoderm patch Also hopefully IR will be able to replace the G tube. She remains on IV abx at this time. If we cannot get the G tube changed then PICC line and parental nutrition thank you Chavez Henderson
[2017-12-22] MEDS: (Novolin R) Insulin Human Regular 100 units/ml vial SC SCH ×4 (07:34→21:49)
[2017-12-22 07:54] LABS: BASO % 0.1 % (0.0-2.0); HEMOGLOBIN 12.2 g/dL (11.0-16.0); LYMPH # 0.5 K/uL (1.0-4.3); MEAN CELL VOLUME 84.3 fL (81.0-99.0); MEAN CORPUSCULAR HGB CONC 35.6 g/dL (33.0-37.0); MEAN PLATELET VOLUME 7.6 fL (7.2-11.7); MONO # 0.4 K/uL (0.0-0.8); MONO % 5.6 % (0.0-10.0); NEUT # 6.8 K/uL (1.8-7.0); NEUT % 88.3 % (50.0-75.0); NRBC % 0.1 % (0.0-2.0); PLATELET COUNT 193 K/uL (130-400); RBC 4.08 Mil/uL (3.80-5.20); RED CELL DISTRIBUTION WIDTH 16.5 % (11.5-14.5); WHITE BLOOD COUNT 7.7 K/uL (4.8-10.8)
[2017-12-22 08:31] LABS: ALB/GLOB RATIO 1.2 (1.0-2.1); ALBUMIN 3.2 g/dL (3.5-5.0); ALT/SGPT 70 U/L (9-52); AST/SGOT 54 U/L (14-36); BLOOD UREA NITROGEN 20 mg/dL (7-17); CALCIUM 8.5 mg/dl (8.6-10.4); GFR AFRICAN-AMERICAN > 60; GFR NON-AFRICAN AMERICAN > 60
[2017-12-22 09:06] LABS: LYMPHOCYTE 5 % (20-40); MONOCYTE 4 % (0-10); NEUTROPHIL 91 % (50-75); TOTAL CELLS COUNTED 100
[2017-12-22 09:07] LABS: ANISOCYTOSIS SLIGHT; PLATELET ESTIMATE NORMAL (NORMAL)
[2017-12-22] MEDS: MethylPREDNISolone 40 mg Vial IV SCH ×2 (09:11→21:48)
[2017-12-22] MEDS: Fluconazole IV 200mg/100 ml NS 100 ML IVPB SCH (09:17)
--- NOTE | 2017-12-22 10:21 | CP.PCM.PN ---
<Blsa Garcia - Last Filed: 12/22/17 10:19> Subjective - Date & Time of Evaluation Date of Evaluation: 12/22/17 Time of Evaluation: 10:00 - Subjective Subjective: Surgery: Dr. Gamez patient seen and examined at bedside this AM. c/o abd discomfort around site of G-tube. Denies generalized abd pain. s/p gastrograffin tube study which showed some insertion site leakage but no intraperitoneal leakage from tube. Tube distance advanced to 2cm yesterday. Some drainage still present around insertion site Objective - Vital Signs/Intake and Output Vital Signs (last 24 hours): Temp Pulse Resp BP Pulse Ox 98.4 F 80 20 162/81 H 100 12/22/17 07:00 12/22/17 07:00 12/22/17 07:00 12/22/17 07:00 12/22/17 07:00 Intake and Output: 12/22/17 12/22/17 06:59 18:59 Intake Total 690 Balance 690 - Medications Medications: Current Medications Acetylcysteine (Acetylcysteine 20%) 4 ml INH RQ6 [facility] Last Admin: 12/22/17 07:27 Dose: 4 ml Albuterol/Ipratropium (Duoneb 3 Mg/0.5 Mg (3 Ml) Ud) 3 ml INH RQ6 [facility] Last Admin: 12/22/17 07:27 Dose: 3 ml Carvedilol (Coreg) 3.125 mg GT BID [facility] Last Admin: 12/21/17 09:38 Dose: Not Given Clopidogrel Bisulfate (Plavix) 75 mg GT DAILY [facility] Last Admin: 12/21/17 09:40 Dose: Not Given Famotidine (Pepcid) 40 mg GT DAILY [facility] Last Admin: 12/21/17 09:39 Dose: Not Given Fluconazole (Diflucan) 200 mg PEG DAILY [facility] PRN Reason: Protocol Stop: 01/04/18 10:00 Last Admin: 12/21/17 09:39 Dose: Not Given Hydralazine HCl (Apresoline) 10 mg IVP Q6H PRN PRN Reason: Systolic Blood Pressure Last Admin: 12/22/17 09:11 Dose: 10 mg Piperacillin Sod/Tazobactam Sod (Zosyn 3.375 Gm Iv Premix) 3.375 gm in 50 mls @ 100 mls/hr IVPB Q8H [facility] PRN Reason: Protocol Last Admin: 12/22/17 02:54 Dose: 100 mls/hr Dextrose (Dextrose 5% In Water 1000 Ml) 1,000 mls @ 40 mls/hr IV .Q24H [facility] Last Admin: 12/21/17 11:10 Dose: 40 mls/hr Fluconazole (Diflucan Iv 200 Mg/100 Ml Ns) 100 mls @ 100 mls/hr IVPB DAILY [facility] PRN Reason: Protocol Last Admin: 12/22/17 09:17 Dose: 100 mls/hr Insulin Human Regular (Novolin R) 0 unit SC ACHS [facility] PRN Reason: Protocol Last Admin: 12/22/17 07:34 Dose: 1 unit Ketorolac Tromethamine (Toradol) 30 mg IVP Q6 PRN PRN Reason: Pain, moderate (4-7) Last Admin: 12/22/17 09:41 Dose: 30 mg Lidocaine (Lidoderm) 1 ea TD DAILY [facility] Losartan Potassium (Cozaar) 25 mg GT DAILY [facility] Last Admin: 12/21/17 09:39 Dose: Not Given Methylprednisolone (Solu-Medrol) 20 mg IV Q12 [facility] Last Admin: 12/22/17 09:11 Dose: 20 mg Pantoprazole Sodium (Protonix Inj) 40 mg IVP DAILY [facility] Last Admin: 12/22/17 09:12 Dose: 40 mg Rosuvastatin Calcium (Crestor) 10 mg GT HS [facility] Last Admin: 12/20/17 21:41 Dose: Not Given - Labs Labs: 12/22/17 07:41 12/22/17 07:41 PT 10.7 SECONDS (9.7-12.2) 12/19/17 16:20 INR 1.0 12/19/17 16:20 APTT 26 SECONDS (21-34) 12/19/17 16:20 - Constitutional Appears: Non-toxic, No Acute Distress - Head Exam Head Exam: ATRAUMATIC - Eye Exam Eye Exam: EOMI. absent: Scleral icterus - ENT Exam ENT Exam: Mucous Membranes Moist - Neck Exam Additional comments: on trach collar - Respiratory Exam Respiratory Exam: NORMAL BREATHING PATTERN. absent: Accessory Muscle Use, Respiratory Distress Additional comments: on Trach collar - Cardiovascular Exam Cardiovascular Exam: +S1, +S2. absent: Bradycardia, Tachycardia - GI/Abdominal Exam GI & Abdominal Exam: Soft, Tenderness (specifically around G-Tube insertion site ). absent: Distended, Firm, Guarding, Rigid Additional comments: incision site C/D/I - Extremities Exam Extremities Exam: absent: Calf Tenderness - Neurological Exam Neurological Exam: Alert, Awake - Skin Skin Exam: Intact, Warm Assessment and Plan - Assessment and Plan (Free Text) Assessment: 72 y/o female with malfunctioning G tube Plan: -IR eval of g tube today, possible replacement -do not use tube at this time -tube advanced 1cm; monitor output Merchant PGY1 <Pop Gamez - Last Filed: 12/24/17 18:32> Objective - Vital Signs/Intake and Output Vital Signs (last 24 hours): Temp Pulse Resp BP Pulse Ox 98.1 F 71 18 148/82 99 12/24/17 15:43 12/24/17 16:16 12/24/17 15:43 12/24/17 15:43 12/24/17 15:43 Intake and Output: 12/24/17 12/24/17 06:59 18:59 Intake Total 490 Balance 490 - Medications Medications: Current Medications Acetylcysteine (Acetylcysteine 20%) 4 ml INH RQ6 [facility] Last Admin: 12/24/17 13:41 Dose: 4 ml Albuterol/Ipratropium (Duoneb 3 Mg/0.5 Mg (3 Ml) Ud) 3 ml INH RQ6 [facility] Last Admin: 12/24/17 13:41 Dose: 3 ml Amlodipine Besylate (Norvasc) 5 mg PEG DAILY [facility] Last Admin: 12/24/17 12:09 Dose: 5 mg Carvedilol (Coreg) 3.125 mg GT BID [facility] Last Admin: 12/24/17 17:49 Dose: 3.125 mg Clopidogrel Bisulfate (Plavix) 75 mg GT DAILY [facility] Last Admin: 12/24/17 12:03 Dose: 75 mg Enoxaparin Sodium (Lovenox) 40 mg SC DAILY [facility] Famotidine (Pepcid) 40 mg GT DAILY [facility] Last Admin: 12/24/17 12:03 Dose: 40 mg Fluconazole (Diflucan) 200 mg PEG DAILY [facility] PRN Reason: Protocol Stop: 01/04/18 10:00 Last Admin: 12/24/17 12:03 Dose: 200 mg Hydralazine HCl (Apresoline) 10 mg IVP Q6H PRN PRN Reason: Systolic Blood Pressure Last Admin: 12/23/17 23:51 Dose: 10 mg Insulin Human Regular (Novolin R) 0 unit SC ACHS [facility] PRN Reason: Protocol Last Admin: 12/24/17 17:47 Dose: 3 unit Ketorolac Tromethamine (Toradol) 30 mg IVP Q6 PRN PRN Reason: Pain, moderate (4-7) Last Admin: 12/22/17 09:41 Dose: 30 mg Lidocaine (Lidoderm) 1 ea TD DAILY [facility] Last Admin: 12/24/17 12:04 Dose: 1 ea Losartan Potassium (Cozaar) 25 mg GT DAILY [facility] Last Admin: 12/24/17 12:09 Dose: 25 mg Methylprednisolone (Solu-Medrol) 20 mg IV Q12 [facility] Last Admin: 12/24/17 12:03 Dose: 20 mg Rosuvastatin Calcium (Crestor) 10 mg GT HS [facility] Last Admin: 12/23/17 21:52 Dose: 10 mg - Labs Labs: 12/24/17 07:38 12/24/17 07:38 PT 10.7 SECONDS (9.7-12.2) 12/19/17 16:20 INR 1.0 12/19/17 16:20 APTT 26 SECONDS (21-34) 12/19/17 16:20 Attending/Attestation - Attestation I have personally seen and examined this patient.: Yes I have fully participated in the care of the patient.: Yes I have reviewed all pertinent clinical information, including history, physical exam and plan: Yes Notes (Text): Pt is seen and examined at bedside Agree with above note and assessment G tube was replaced by IR c.w tube feeds No surgical intervention required at present Plan d.w pt in detail Risk and benefit explained in detail.
[2017-12-22] MEDS: Lidocaine 5% Patch TD SCH (11:05)
--- NOTE | 2017-12-22 12:52 | PCM.SURG1 ---
Surgeon's Initial Post Op Note - Surgeon's Notes Surgeon: Nael Gupta MD Real Estate Transaction Coordinator: NONE Type of Anesthesia: Local Pre-Operative Diagnosis: G tube leaking Operative Findings: G tube not in stomach. Post-Operative Diagnosis: G tube leaking Operation Performed: A catheter was advanced through tract into stomach. Confirmation was made with contrast study. A new 18 fr G tube placed over a wire. Position of the new G tube is within stomach. Specimen/Specimens Removed: NONE Estimated Blood Loss: EBL {In ML}: 0 Blood Products Given: N/A Drains Used: No Drains Post-Op Condition: Fair Date of Surgery/Procedure: 12/22/17 Time of Surgery/Procedure: 12:50
--- NOTE | 2017-12-22 13:25 | SPECPROC ---
PROCEDURE: < Date of procedure: 12/22/2017 Procedure: 1. Replacement of gastrostomy tube under fluoroscopic guidance, CPT 42570 Medications: Lidocaine 1 percent, 6 cubic centimeters Fluoroscopic time: 54 seconds Radiation: 24 mGy HISTORY: Leaking gastrostomy tube TECHNIQUE: Following informed consent, the patient placed supine on the interventional table existing gastrostomy tube and surrounding skin were prepped and draped in the usual sterile fashion. The existing gastrostomy tube was noted not to be within stomach. The gastrostomy tube was removed. An angled glide catheter was advanced through the existing tract into stomach. Contrast injected through the catheter confirmed position within the stomach. An 035 guidewire was advanced through the catheter into the stomach. A new 18 Marshallese gastrostomy tube was advanced over the wire and positioned within the stomach. The balloon of the gastrostomy tube was inflated with sterile water and contrast totaling 6 cubic centimeters. Tube was secured to the patient and a dressing applied. IMPRESSION: The existing gastrostomy tube is now within stomach. Placement of a new 18 [place]ese gastrostomy tube position within the stomach. The new tube is functional ready for use.
[2017-12-23] MEDS: Piperacill/Tazo 3.375gm in Dex 3.375 GM/50 ML BAG IVPB SCH ×3 (01:20→17:32)
[2017-12-23] MEDS: Albuterol-Ipratrop 3 mg / 0.5 (3 ml) UD INH SCH ×4 (02:35→19:02)
[2017-12-23] MEDS: Acetylcysteine 20% Inhal Soln (4ml) INH SCH ×4 (02:36→19:02)
[2017-12-23 07:56] LABS: BASO % 0.1 % (0.0-2.0); LYMPH # 0.4 K/uL (1.0-4.3); LYMPH % 5.6 % (20.0-40.0); MEAN CELL VOLUME 84.4 fL (81.0-99.0); MEAN CORPUSCULAR HEMOGLOBIN 30.4 pg (27.0-31.0); MEAN CORPUSCULAR HGB CONC 35.9 g/dL (33.0-37.0); MEAN PLATELET VOLUME 7.6 fL (7.2-11.7); MONO # 0.4 K/uL (0.0-0.8); MONO % 5.5 % (0.0-10.0); NEUT # 5.9 K/uL (1.8-7.0); NEUT % 88.8 % (50.0-75.0); NRBC % 0.1 % (0.0-2.0); PLATELET COUNT 166 K/uL (130-400); RBC 3.97 Mil/uL (3.80-5.20); RED CELL DISTRIBUTION WIDTH 16.3 % (11.5-14.5); WHITE BLOOD COUNT 6.6 K/uL (4.8-10.8)
[2017-12-23 07:59] LABS: ALB/GLOB RATIO 1.2 (1.0-2.1); ALT/SGPT 85 U/L (9-52); AST/SGOT 46 U/L (14-36); BLOOD UREA NITROGEN 20 mg/dL (7-17); CALCIUM 8.1 mg/dl (8.6-10.4); GFR AFRICAN-AMERICAN > 60; GFR NON-AFRICAN AMERICAN > 60
[2017-12-23] MEDS: (Novolin R) Insulin Human Regular 100 units/ml vial SC SCH ×4 (08:23→21:23)
[2017-12-23 09:07] LABS: ANISOCYTOSIS SLIGHT; LYMPHOCYTE 4 % (20-40); MONOCYTE 6 % (0-10); NEUTROPHIL 90 % (50-75); PLATELET ESTIMATE NORMAL (NORMAL); POIKILOCYTOSIS SLIGHT; TOTAL CELLS COUNTED 100
[2017-12-23] MEDS ORDERED: Potassium Chloride 20 mEq/15 ml LIQ UD PEG ONE ×2 (09:19→11:00)
[2017-12-23] MEDS: Lidocaine 5% Patch TD SCH (10:36)
[2017-12-23] MEDS: MethylPREDNISolone 40 mg Vial IV SCH ×2 (10:38→21:50)
--- NOTE | 2017-12-23 11:03 | CP.PCM.PN ---
<Gi Garcia - Last Filed: 12/23/17 10:59> Subjective - Date & Time of Evaluation Date of Evaluation: 12/23/17 Time of Evaluation: 07:00 - Subjective Subjective: Medicine Progress Note: Patient was seen and examined at bedside in the AM. Patient stated she was having mild abdominal pain. Patient denied chest pain, palpitations, fever, nausea or vomiting. Objective - Vital Signs/Intake and Output Vital Signs (last 24 hours): Temp Pulse Resp BP Pulse Ox 98.3 F 75 20 153/78 H 100 12/23/17 07:00 12/23/17 07:00 12/23/17 07:00 12/23/17 07:00 12/23/17 07:00 - Medications Medications: Current Medications Acetylcysteine (Acetylcysteine 20%) 4 ml INH RQ6 [facility] Last Admin: 12/23/17 08:01 Dose: 4 ml Albuterol/Ipratropium (Duoneb 3 Mg/0.5 Mg (3 Ml) Ud) 3 ml INH RQ6 [facility] Last Admin: 12/23/17 08:01 Dose: 3 ml Carvedilol (Coreg) 3.125 mg GT BID [facility] Last Admin: 12/23/17 10:38 Dose: 3.125 mg Clopidogrel Bisulfate (Plavix) 75 mg GT DAILY [facility] Last Admin: 12/23/17 10:38 Dose: 75 mg Famotidine (Pepcid) 40 mg GT DAILY [facility] Last Admin: 12/23/17 10:38 Dose: 40 mg Fluconazole (Diflucan) 200 mg PEG DAILY [facility] PRN Reason: Protocol Stop: 01/04/18 10:00 Last Admin: 12/21/17 09:39 Dose: Not Given Hydralazine HCl (Apresoline) 10 mg IVP Q6H PRN PRN Reason: Systolic Blood Pressure Last Admin: 12/23/17 00:40 Dose: 10 mg Piperacillin Sod/Tazobactam Sod (Zosyn 3.375 Gm Iv Premix) 3.375 gm in 50 mls @ 100 mls/hr IVPB Q8H [facility] PRN Reason: Protocol Last Admin: 12/23/17 10:53 Dose: 100 mls/hr Insulin Human Regular (Novolin R) 0 unit SC ACHS [facility] PRN Reason: Protocol Last Admin: 12/23/17 08:23 Dose: 1 unit Ketorolac Tromethamine (Toradol) 30 mg IVP Q6 PRN PRN Reason: Pain, moderate (4-7) Last Admin: 12/22/17 09:41 Dose: 30 mg Lidocaine (Lidoderm) 1 ea TD DAILY [facility] Last Admin: 12/23/17 10:36 Dose: 1 ea Losartan Potassium (Cozaar) 25 mg GT DAILY [facility] Last Admin: 12/23/17 10:38 Dose: 25 mg Methylprednisolone (Solu-Medrol) 20 mg IV Q12 [facility] Last Admin: 12/23/17 10:38 Dose: 20 mg Potassium Chloride (Potassium Chloride Oral Soln) 20 meq PEG ONCE ONE Stop: 12/23/17 11:01 Rosuvastatin Calcium (Crestor) 10 mg GT HS [facility] Last Admin: 12/20/17 21:41 Dose: Not Given - Labs Labs: 12/23/17 07:32 12/23/17 07:32 PT 10.7 SECONDS (9.7-12.2) 12/19/17 16:20 INR 1.0 12/19/17 16:20 APTT 26 SECONDS (21-34) 12/19/17 16:20 - Constitutional Appears: No Acute Distress, Chronically Ill - Head Exam Head Exam: ATRAUMATIC, NORMAL INSPECTION - Eye Exam Eye Exam: EOMI, Normal appearance - ENT Exam ENT Exam: Mucous Membranes Moist - Respiratory Exam Respiratory Exam: Clear to Ausculation Bilateral, NORMAL BREATHING PATTERN - Cardiovascular Exam Cardiovascular Exam: REGULAR RHYTHM, +S1, +S2 - GI/Abdominal Exam GI & Abdominal Exam: Soft, Normal Bowel Sounds. absent: Tenderness Additional comments: Gtube dry/intact - Extremities Exam Extremities Exam: Normal Inspection - Neurological Exam Neurological Exam: Alert, Awake, Oriented x3 - Psychiatric Exam Psychiatric exam: Normal Affect, Normal Mood - Skin Skin Exam: Normal Color Assessment and Plan - Assessment and Plan (Free Text) Assessment: s/p GTube replacement 12/22/17 tube feedings and medications restarted 12/23/17 Gastrostomy site leak General Surgery consulted, Dr. Gamez; help appreciated 12/20: Patient underwent G tube study showing extravasation along the tubing entry site on the left lateral jesica abdominal area. 10/12/17 Patient had a PEG placed by Dr. Gupta. For PEG tube dysfunction, 11/24/17 Patient had G tube placed by Dr. Gamez Surgery consult Dr. Gamez for gastrostomy tube dysfunction IR consult placed by Surgery: Dr. Gupta --> help appreciated - s/p GTube replacement 12/22/17 Gastrostomy culture (preliminary): rare polymorphonuclear WBCs; few yeast; rare gram negative rods - Zosyn 3.375gm IV q8h (started on 12/21/17) - Started Fluconazole 200mg PEG daily for 2 weeks (stop date 01/04/18) Abdominal Pain - secondary to Gastrostomy site leak - Medications: * Toradol 30mg IV q6prn for pain * Lidocaine TD UTI 12/20: Pending the urine culture/ She is on IV Cipro 400 BID UA: 1+protein 3+ blood, 3+ Leuk Esterase, WBC 134, RBC 519, Occ bacteria, Occ yeast Afebrile Discontinued Garcia Cipro 500mg PO BID discontinued 12/21/17 due to interaction with Fluconzole and started Zosyn 3.375gm IV q8h (started on 12/21/17) Urine Culture: yeast * Started Fluconazole 200mg PEG daily for 2 weeks (stop date 01/04/18) History of Diabetes mellitus Patient denies hx of DM A1c (11/30/17): 7.2 ISS Hypoglycemia protocol Accuchecks Continue to monitor History of COPD Former heavy smoker (60 pack-years) Chest xray: f/u results Was discharged from hospital on 12/16/16 with prescription for cipro 500mg PO BID for hospital acquired pneumonia Continue Cipro 500mg PO BID Duonebs and mucomyst Q6h Solumedrol 20mg IV Q12h Laryngeal cancer 12/20: The family wants chemotherapy - however everytime we try to get her to rehab - something else happens and she comes back to the hospital. She is mostly bed bound. 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 Needs continuous tracheostomy care. History of HTN Continue home medications: Losartan 25mg PO daily, Coreg 3.125mg PO BID Hydralazine 10mg IV q6 prn for systolic BP >150 Continue to monitor Prophylaxis: Protonix 40mg IV daily [facility] Palliative Care Consult for Code Status Case discussed with Dr. Beatriz Garcia PGY-1 <Chavez Henderson H - Last Filed: 12/23/17 16:51> Objective - Vital Signs/Intake and Output Vital Signs (last 24 hours): Temp Pulse Resp BP Pulse Ox 98.2 F 58 L 20 161/70 H 100 12/23/17 15:10 12/23/17 15:10 12/23/17 15:10 12/23/17 15:10 12/23/17 15:10 Intake and Output: 12/23/17 12/23/17 06:59 18:59 Intake Total 300 Output Total 20 Balance 280 - Medications Medications: Current Medications Acetylcysteine (Acetylcysteine 20%) 4 ml INH RQ6 [facility] Last Admin: 12/23/17 13:33 Dose: 4 ml Albuterol/Ipratropium (Duoneb 3 Mg/0.5 Mg (3 Ml) Ud) 3 ml INH RQ6 [facility] Last Admin: 12/23/17 13:33 Dose: 3 ml Carvedilol (Coreg) 3.125 mg GT BID [facility] Clopidogrel Bisulfate (Plavix) 75 mg GT DAILY [facility] Last Admin: 12/23/17 10:38 Dose: 75 mg Famotidine (Pepcid) 40 mg GT DAILY [facility] Last Admin: 12/23/17 10:38 Dose: 40 mg Fluconazole (Diflucan) 200 mg PEG DAILY [facility] PRN Reason: Protocol Stop: 01/04/18 10:00 Last Admin: 12/23/17 10:38 Dose: 200 mg Hydralazine HCl (Apresoline) 10 mg IVP Q6H PRN PRN Reason: Systolic Blood Pressure Last Admin: 12/23/17 00:40 Dose: 10 mg Piperacillin Sod/Tazobactam Sod (Zosyn 3.375 Gm Iv Premix) 3.375 gm in 50 mls @ 100 mls/hr IVPB Q8H [facility] PRN Reason: Protocol Last Admin: 12/23/17 10:53 Dose: 100 mls/hr Insulin Human Regular (Novolin R) 0 unit SC ACHS [facility] PRN Reason: Protocol Last Admin: 12/23/17 12:10 Dose: 1 unit Ketorolac Tromethamine (Toradol) 30 mg IVP Q6 PRN PRN Reason: Pain, moderate (4-7) Last Admin: 12/22/17 09:41 Dose: 30 mg Lidocaine (Lidoderm) 1 ea TD DAILY [facility] Last Admin: 12/23/17 10:36 Dose: 1 ea Losartan Potassium (Cozaar) 25 mg GT DAILY [facility] Last Admin: 12/23/17 10:38 Dose: 25 mg Methylprednisolone (Solu-Medrol) 20 mg IV Q12 [facility] Last Admin: 12/23/17 10:38 Dose: 20 mg Rosuvastatin Calcium (Crestor) 10 mg GT HS [facility] Last Admin: 12/20/17 21:41 Dose: Not Given - Labs Labs: 12/23/17 07:32 12/23/17 07:32 PT 10.7 SECONDS (9.7-12.2) 12/19/17 16:20 INR 1.0 12/19/17 16:20 APTT 26 SECONDS (21-34) 12/19/17 16:20 Attending/Attestation - Attestation I have personally seen and examined this patient.: Yes I have fully participated in the care of the patient.: Yes I have reviewed all pertinent clinical information, including history, physical exam and plan: Yes Notes (Text): 12/23/17 16:45 Medical attending: Patient was seen and examined by me. Agree with the above note by the resident The patient was not in any acute distress Yesterday afternoon the patient went to IR and successfuly was able to have the g tube exchanged. It looks better today, currently on Jevity 1.5 and restarted on medications via the g tube. Patient's daughter, Letty Harrison was at bedside - she was yelling and screaming today since nobody called her to let her know that the patient was going to have the g tube exchanged - this is despite the previous days we telling her that surgery had asked IR to try to exchange the tube. From what she tells me, she wants the nurse to call her if there is any time the patient is moved for any test or study or procedure. At this time the Jevity is at a slower rate and if patient tolerates later on 40 cc then we will see if she could go to rehab thank you Chavez Henderson
[2017-12-24] MEDS: Albuterol-Ipratrop 3 mg / 0.5 (3 ml) UD INH SCH ×4 (01:08→19:25)
[2017-12-24] MEDS: Acetylcysteine 20% Inhal Soln (4ml) INH SCH ×4 (01:08→19:25)
[2017-12-24] MEDS: Piperacill/Tazo 3.375gm in Dex 3.375 GM/50 ML BAG IVPB SCH (01:36)
--- NOTE | 2017-12-24 06:12 | CARD ---
APPROVED REPORT EKG Measurement Heart [id number] <Conclusion> Sinus bradycardia Inferior infarct, age undetermined Abnormal ECG
[2017-12-24 08:05] LABS: BASO % 0.1 % (0.0-2.0); HEMOGLOBIN 12.4 g/dL (11.0-16.0); LYMPH # 0.4 K/uL (1.0-4.3); LYMPH % 4.6 % (20.0-40.0); MEAN CELL VOLUME 84.1 fL (81.0-99.0); MEAN CORPUSCULAR HEMOGLOBIN 30.3 pg (27.0-31.0); MEAN PLATELET VOLUME 7.5 fL (7.2-11.7); MONO # 0.5 K/uL (0.0-0.8); MONO % 6.7 % (0.0-10.0); NEUT # 7.1 K/uL (1.8-7.0); NEUT % 88.6 % (50.0-75.0); PLATELET COUNT 179 K/uL (130-400); RBC 4.08 Mil/uL (3.80-5.20); RED CELL DISTRIBUTION WIDTH 16.7 % (11.5-14.5)
[2017-12-24 08:23] LABS: ALB/GLOB RATIO 1.2 (1.0-2.1); ALBUMIN 2.7 g/dL (3.5-5.0); ALT/SGPT 86 U/L (9-52); AST/SGOT 39 U/L (14-36); BLOOD UREA NITROGEN 23 mg/dL (7-17); CALCIUM 8.4 mg/dl (8.6-10.4); GFR AFRICAN-AMERICAN > 60; GFR NON-AFRICAN AMERICAN > 60
[2017-12-24 08:53] LABS: BANDS 5 % (0-2); LYMPHOCYTE 3 % (20-40); MONOCYTE 3 % (0-10); NEUTROPHIL 88 % (50-75); PLATELET ESTIMATE NORMAL (NORMAL); REACTIVE LYMPHOCYTES 1 % (0-0); TOTAL CELLS COUNTED 100
[2017-12-24 08:54] LABS: ANISOCYTOSIS SLIGHT; OVALOCYTES SLIGHT
[2017-12-24] MEDS: (Novolin R) Insulin Human Regular 100 units/ml vial SC SCH ×4 (08:57→22:24)
--- NOTE | 2017-12-24 10:59 | CP.PCM.PN ---
<Gi Garcia - Last Filed: 12/24/17 10:56> Subjective - Date & Time of Evaluation Date of Evaluation: 12/24/17 Time of Evaluation: 07:00 - Subjective Subjective: Medicine Progress Note: Patient was seen and examined at bedside in the AM. Patient denies any abdominal pain and states she slept well overnight. Patient denies chest pain, palpitations, fever, nausea or vomiting. Objective - Vital Signs/Intake and Output Vital Signs (last 24 hours): Temp Pulse Resp BP Pulse Ox 97.9 F 61 20 166/80 H 96 12/24/17 08:15 12/24/17 08:15 12/24/17 08:15 12/24/17 08:15 12/24/17 08:15 Intake and Output: 12/24/17 12/24/17 06:59 18:59 Intake Total 490 Balance 490 - Medications Medications: Current Medications Acetylcysteine (Acetylcysteine 20%) 4 ml INH RQ6 [facility] Last Admin: 12/24/17 07:51 Dose: 4 ml Albuterol/Ipratropium (Duoneb 3 Mg/0.5 Mg (3 Ml) Ud) 3 ml INH RQ6 [facility] Last Admin: 12/24/17 07:50 Dose: 3 ml Amlodipine Besylate (Norvasc) 5 mg PEG DAILY [facility] Carvedilol (Coreg) 3.125 mg GT BID [facility] Last Admin: 12/23/17 17:35 Dose: 3.125 mg Clopidogrel Bisulfate (Plavix) 75 mg GT DAILY [facility] Last Admin: 12/23/17 10:38 Dose: 75 mg Famotidine (Pepcid) 40 mg GT DAILY [facility] Last Admin: 12/23/17 10:38 Dose: 40 mg Fluconazole (Diflucan) 200 mg PEG DAILY [facility] PRN Reason: Protocol Stop: 01/04/18 10:00 Last Admin: 12/23/17 10:38 Dose: 200 mg Hydralazine HCl (Apresoline) 10 mg IVP Q6H PRN PRN Reason: Systolic Blood Pressure Last Admin: 12/23/17 23:51 Dose: 10 mg Insulin Human Regular (Novolin R) 0 unit SC ACHS [facility] PRN Reason: Protocol Last Admin: 12/24/17 08:57 Dose: 3 unit Ketorolac Tromethamine (Toradol) 30 mg IVP Q6 PRN PRN Reason: Pain, moderate (4-7) Last Admin: 12/22/17 09:41 Dose: 30 mg Lidocaine (Lidoderm) 1 ea TD DAILY [facility] Last Admin: 12/23/17 10:36 Dose: 1 ea Losartan Potassium (Cozaar) 25 mg GT DAILY [facility] Last Admin: 12/23/17 10:38 Dose: 25 mg Methylprednisolone (Solu-Medrol) 20 mg IV Q12 [facility] Last Admin: 12/23/17 21:50 Dose: 20 mg Rosuvastatin Calcium (Crestor) 10 mg GT HS [facility] Last Admin: 12/23/17 21:52 Dose: 10 mg - Labs Labs: 12/24/17 07:38 12/24/17 07:38 PT 10.7 SECONDS (9.7-12.2) 12/19/17 16:20 INR 1.0 12/19/17 16:20 APTT 26 SECONDS (21-34) 12/19/17 16:20 - Constitutional Appears: No Acute Distress, Chronically Ill - Head Exam Head Exam: ATRAUMATIC, NORMAL INSPECTION - Eye Exam Eye Exam: EOMI, Normal appearance - ENT Exam ENT Exam: Mucous Membranes Moist - Respiratory Exam Respiratory Exam: NORMAL BREATHING PATTERN Additional comments: trach in place - Cardiovascular Exam Cardiovascular Exam: REGULAR RHYTHM, +S1, +S2 - GI/Abdominal Exam GI & Abdominal Exam: Soft, Normal Bowel Sounds. absent: Tenderness Additional comments: Gtube dry/intact - Extremities Exam Extremities Exam: Normal Inspection - Neurological Exam Neurological Exam: Alert, Awake, Oriented x3 - Skin Skin Exam: Normal Color Assessment and Plan - Assessment and Plan (Free Text) Assessment: s/p GTube replacement 12/22/17 tube feedings and medications restarted 12/23/17 Gastrostomy site leak General Surgery consulted, Dr. Gamez; help appreciated 12/20: Patient underwent G tube study showing extravasation along the tubing entry site on the left lateral jesica abdominal area. 10/12/17 Patient had a PEG placed by Dr. Gupta. For PEG tube dysfunction, 11/24/17 Patient had G tube placed by Dr. Gamez Surgery consult Dr. Gamez for gastrostomy tube dysfunction IR consult placed by Surgery: Dr. Gupta --> help appreciated - s/p GTube replacement 5/30/18 - Tube feeding goal of 40 Gastrostomy culture (12/21/17): Aggie Albicans - Zosyn 3.375gm IV q8h (started on 12/21/17) --> discontinued 12/24/17 - Started Fluconazole 200mg PEG daily for 2 weeks (stop date 01/04/18) Abdominal Pain - resolved - secondary to Gastrostomy site leak - Medications: * Toradol 30mg IV q6prn for pain * Lidocaine TD UTI 12/20: Pending the urine culture/ She is on IV Cipro 400 BID UA: 1+protein 3+ blood, 3+ Leuk Esterase, WBC 134, RBC 519, Occ bacteria, Occ yeast Afebrile Discontinued Garcia Cipro 500mg PO BID discontinued 12/21/17 due to interaction with Fluconzole and started Zosyn 3.375gm IV q8h (started on 12/21/17) Urine Culture: yeast * Started Fluconazole 200mg PEG daily for 2 weeks (stop date 01/04/18) History of Diabetes mellitus Patient denies hx of DM A1c (11/30/17): 7.2 ISS Hypoglycemia protocol Accuchecks Continue to monitor History of COPD Former heavy smoker (60 pack-years) Chest xray: f/u results Was discharged from hospital on 12/16/16 with prescription for cipro 500mg PO BID for hospital acquired pneumonia Continue Cipro 500mg PO BID Duonebs and mucomyst Q6h Solumedrol 20mg IV Q12h Laryngeal cancer 12/20: The family wants chemotherapy - however everytime we try to get her to rehab - something else happens and she comes back to the hospital. She is mostly bed bound. 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 Needs continuous tracheostomy care. History of HTN - Medications: * Losartan 25mg PO daily, * Coreg 3.125mg PO BID * Started Norvasc 5mg po daily today 12/24/17 * Hydralazine 10mg IV q6 prn for systolic BP >150 Continue to monitor Prophylaxis: Pepcid 40mg po daily Lovenox 40mg SC daily [facility] Palliative Care Consult for Code Status Case discussed with Dr. Beatriz Garcia PGY-1 <Chavez Henderson H - Last Filed: 12/24/17 14:48> Objective - Vital Signs/Intake and Output Vital Signs (last 24 hours): Temp Pulse Resp BP Pulse Ox 97.9 F 61 20 166/80 H 96 12/24/17 08:15 12/24/17 08:15 12/24/17 08:15 12/24/17 08:15 12/24/17 08:15 Intake and Output: 12/24/17 12/24/17 06:59 18:59 Intake Total 490 Balance 490 - Medications Medications: Current Medications Acetylcysteine (Acetylcysteine 20%) 4 ml INH RQ6 [facility] Last Admin: 12/24/17 13:41 Dose: 4 ml Albuterol/Ipratropium (Duoneb 3 Mg/0.5 Mg (3 Ml) Ud) 3 ml INH RQ6 [facility] Last Admin: 12/24/17 13:41 Dose: 3 ml Amlodipine Besylate (Norvasc) 5 mg PEG DAILY [facility] Last Admin: 12/24/17 12:09 Dose: 5 mg Carvedilol (Coreg) 3.125 mg GT BID [facility] Last Admin: 12/24/17 12:09 Dose: 3.125 mg Clopidogrel Bisulfate (Plavix) 75 mg GT DAILY [facility] Last Admin: 12/24/17 12:03 Dose: 75 mg Enoxaparin Sodium (Lovenox) 40 mg SC DAILY [facility] Famotidine (Pepcid) 40 mg GT DAILY [facility] Last Admin: 12/24/17 12:03 Dose: 40 mg Fluconazole (Diflucan) 200 mg PEG DAILY [facility] PRN Reason: Protocol Stop: 01/04/18 10:00 Last Admin: 12/24/17 12:03 Dose: 200 mg Hydralazine HCl (Apresoline) 10 mg IVP Q6H PRN PRN Reason: Systolic Blood Pressure Last Admin: 12/23/17 23:51 Dose: 10 mg Insulin Human Regular (Novolin R) [address] [facility] PRN Reason: Protocol Last Admin: 12/24/17 13:55 Dose: 2 unit Ketorolac Tromethamine (Toradol) 30 mg IVP Q6 PRN PRN Reason: Pain, moderate (4-7) Last Admin: 12/22/17 09:41 Dose: 30 mg Lidocaine (Lidoderm) 1 ea TD DAILY [facility] Last Admin: 12/24/17 12:04 Dose: 1 ea Losartan Potassium (Cozaar) 25 mg GT DAILY [facility] Last Admin: 12/24/17 12:09 Dose: 25 mg Methylprednisolone (Solu-Medrol) 20 mg IV Q12 [facility] Last Admin: 12/24/17 12:03 Dose: 20 mg Rosuvastatin Calcium (Crestor) 10 mg GT HS [facility] Last Admin: 12/23/17 21:52 Dose: 10 mg - Labs Labs: 12/24/17 07:38 12/24/17 07:38 PT 10.7 SECONDS (9.7-12.2) 12/19/17 16:20 INR 1.0 12/19/17 16:20 APTT 26 SECONDS (21-34) 12/19/17 16:20 Attending/Attestation - Attestation I have personally seen and examined this patient.: Yes I have fully participated in the care of the patient.: Yes I have reviewed all pertinent clinical information, including history, physical exam and plan: Yes Notes (Text): 12/24/17 14:40 Medical attending: Patient was seen and examined by me. Agree with the above note by the resident The patient was not in any acute distress. We asked her repeatedly if she was having pain and she always indicated that she was not in pain or that the pain was very little. The tube feeds were able to run at 20 cc / hr without issue - will try going to 30 cc / hr and see how she does. She has been afebrile, also the WBC stable. Will stop with the IV Zosyn and monitor Per discussion with case workers will need reauthorization so she will be here until Wednesday ~ Wednesday before she can potentially go back to rehab. thank you Chavez Henderson
[2017-12-24] MEDS: MethylPREDNISolone 40 mg Vial IV SCH ×2 (12:03→22:25)
[2017-12-24] MEDS: Lidocaine 5% Patch TD SCH (12:04)
[2017-12-25] MEDS: Acetylcysteine 20% Inhal Soln (4ml) INH SCH ×4 (01:37→20:03)
[2017-12-25] MEDS: Albuterol-Ipratrop 3 mg / 0.5 (3 ml) UD INH SCH ×4 (01:37→20:03)
[2017-12-25 06:57] LABS: BASO % 0.1 % (0.0-2.0); HEMOGLOBIN 12.3 g/dL (11.0-16.0); LYMPH # 0.3 K/uL (1.0-4.3); LYMPH % 3.8 % (20.0-40.0); MEAN CELL VOLUME 83.4 fL (81.0-99.0); MEAN CORPUSCULAR HEMOGLOBIN 29.8 pg (27.0-31.0); MEAN CORPUSCULAR HGB CONC 35.8 g/dL (33.0-37.0); MEAN PLATELET VOLUME 7.3 fL (7.2-11.7); MONO # 0.4 K/uL (0.0-0.8); MONO % 5.1 % (0.0-10.0); NEUT # 7.3 K/uL (1.8-7.0); NRBC % 0.1 % (0.0-2.0); PLATELET COUNT 182 K/uL (130-400); RBC 4.11 Mil/uL (3.80-5.20); RED CELL DISTRIBUTION WIDTH 16.7 % (11.5-14.5)
[2017-12-25 07:16] LABS: ALB/GLOB RATIO 1.1 (1.0-2.1); ALBUMIN 2.7 g/dL (3.5-5.0); ALT/SGPT 78 U/L (9-52); AST/SGOT 29 U/L (14-36); BLOOD UREA NITROGEN 25 mg/dL (7-17); CALCIUM 8.3 mg/dl (8.6-10.4); GFR AFRICAN-AMERICAN > 60; GFR NON-AFRICAN AMERICAN > 60
[2017-12-25 08:29] LABS: ANISOCYTOSIS SLIGHT; BANDS 1 % (0-2); LYMPHOCYTE 1 % (20-40); MONOCYTE 3 % (0-10); NEUTROPHIL 95 % (50-75); PLATELET ESTIMATE NORMAL (NORMAL); TOTAL CELLS COUNTED 100
[2017-12-25] MEDS: (Novolin R) Insulin Human Regular 100 units/ml vial SC SCH ×4 (08:30→21:27)
--- NOTE | 2017-12-25 08:53 | CP.PCM.PN ---
<Gi Garcia ÁngelLouise - Last Filed: 12/25/17 09:48> Subjective - Date & Time of Evaluation Date of Evaluation: 12/25/17 Time of Evaluation: 07:00 - Subjective Subjective: Medicine Progress Note: Patient was seen and examined at bedside in the AM. Patient denies any abdominal pain and states she slept well overnight. Patient denies chest pain, palpitations, fever, nausea or vomiting. Objective - Vital Signs/Intake and Output Vital Signs (last 24 hours): Temp Pulse Resp BP Pulse Ox 98.1 F 70 20 160/84 H 95 12/25/17 07:00 12/25/17 07:00 12/25/17 07:00 12/25/17 07:00 12/25/17 07:00 Intake and Output: 12/25/17 12/25/17 06:59 18:59 Intake Total 240 Balance 240 - Medications Medications: Current Medications Acetylcysteine (Acetylcysteine 20%) 4 ml INH RQ6 [facility] Last Admin: 12/25/17 07:42 Dose: 4 ml Albuterol/Ipratropium (Duoneb 3 Mg/0.5 Mg (3 Ml) Ud) 3 ml INH RQ6 [facility] Last Admin: 12/25/17 07:42 Dose: 3 ml Amlodipine Besylate (Norvasc) 5 mg PEG DAILY [facility] Last Admin: 12/24/17 12:09 Dose: 5 mg Carvedilol (Coreg) 3.125 mg GT BID [facility] Last Admin: 12/24/17 17:49 Dose: 3.125 mg Clopidogrel Bisulfate (Plavix) 75 mg GT DAILY [facility] Last Admin: 12/24/17 12:03 Dose: 75 mg Enoxaparin Sodium (Lovenox) 40 mg SC DAILY [facility] Famotidine (Pepcid) 40 mg GT DAILY [facility] Last Admin: 12/24/17 12:03 Dose: 40 mg Fluconazole (Diflucan) 200 mg PEG DAILY [facility] PRN Reason: Protocol Stop: 01/04/18 10:00 Last Admin: 12/24/17 12:03 Dose: 200 mg Hydralazine HCl (Apresoline) 10 mg IVP Q6H PRN PRN Reason: Systolic Blood Pressure Last Admin: 12/23/17 23:51 Dose: 10 mg Insulin Human Regular (Novolin R) 0 unit SC ACHS [facility] PRN Reason: Protocol Last Admin: 12/24/17 22:24 Dose: 2 unit Ketorolac Tromethamine (Toradol) 30 mg IVP Q6 PRN PRN Reason: Pain, moderate (4-7) Last Admin: 12/22/17 09:41 Dose: 30 mg Lidocaine (Lidoderm) 1 ea TD DAILY [facility] Last Admin: 12/24/17 12:04 Dose: 1 ea Losartan Potassium (Cozaar) 25 mg GT DAILY [facility] Methylprednisolone (Solu-Medrol) 20 mg IV Q12 [facility] Last Admin: 12/24/17 22:25 Dose: 20 mg Rosuvastatin Calcium (Crestor) 10 mg GT HS [facility] Last Admin: 12/24/17 22:24 Dose: 10 mg - Labs Labs: 12/25/17 06:48 12/25/17 06:48 PT 10.7 SECONDS (9.7-12.2) 12/19/17 16:20 INR 1.0 12/19/17 16:20 APTT 26 SECONDS (21-34) 12/19/17 16:20 - Constitutional Appears: No Acute Distress, Chronically Ill - Head Exam Head Exam: ATRAUMATIC, NORMAL INSPECTION - Eye Exam Eye Exam: EOMI, Normal appearance - ENT Exam ENT Exam: Mucous Membranes Moist - Respiratory Exam Respiratory Exam: NORMAL BREATHING PATTERN Additional comments: trach in place - Cardiovascular Exam Cardiovascular Exam: REGULAR RHYTHM, +S1, +S2 - GI/Abdominal Exam GI & Abdominal Exam: Soft, Normal Bowel Sounds. absent: Tenderness Additional comments: Gtube in place - clean/dry/intact - Extremities Exam Extremities Exam: Normal Inspection - Neurological Exam Neurological Exam: Alert, Awake, Oriented x3 - Psychiatric Exam Psychiatric exam: Normal Affect, Normal Mood - Skin Skin Exam: Normal Color Assessment and Plan - Assessment and Plan (Free Text) Assessment: s/p GTube replacement 12/22/17 tube feedings and medications restarted 12/23/17 Gastrostomy site leak General Surgery consulted, Dr. Gamez; help appreciated 12/20: Patient underwent G tube study showing extravasation along the tubing entry site on the left lateral jesica abdominal area. 10/12/17 Patient had a PEG placed by Dr. Gupta. For PEG tube dysfunction, 11/24/17 Patient had G tube placed by Dr. Gamez Surgery consult Dr. Gamez for gastrostomy tube dysfunction IR consult placed by Surgery: Dr. Gupta --> help appreciated - s/p GTube replacement 12/22/17 - Tube feeding goal of 40 Gastrostomy culture (12/21/17): Aggie Albicans - Zosyn 3.375gm IV q8h (started on 12/21/17) --> discontinued 12/24/17 - Started Fluconazole 200mg PEG daily for 2 weeks (stop date 01/04/18) Abdominal Pain - resolved - secondary to Gastrostomy site leak - Medications: * Toradol 30mg IV q6prn for pain * Lidocaine TD UTI 12/20: Pending the urine culture/ She is on IV Cipro 400 BID UA: 1+protein 3+ blood, 3+ Leuk Esterase, WBC 134, RBC 519, Occ bacteria, Occ yeast Afebrile Discontinued Garcia Cipro 500mg PO BID discontinued 12/21/17 due to interaction with Fluconzole and started Zosyn 3.375gm IV q8h (started on 12/21/17) Urine Culture: yeast * Started Fluconazole 200mg PEG daily for 2 weeks (stop date 01/04/18) History of Diabetes mellitus Patient denies hx of DM A1c (11/30/17): 7.2 ISS Hypoglycemia protocol Accuchecks Continue to monitor History of COPD Former heavy smoker (60 pack-years) Chest xray: Limited bibasilar atelectasis or infiltrates developing in the interval. Examination otherwise stable. Was discharged from hospital on 12/16/16 with prescription for cipro 500mg PO BID for hospital acquired pneumonia Continue Cipro 500mg PO BID Duonebs and mucomyst Q6h Solumedrol 20mg IV Q12h Laryngeal cancer 12/20: The family wants chemotherapy - however every time we try to get her to rehab - something else happens and she comes back to the hospital. She is mostly bed bound. 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 Needs continuous tracheostomy care. History of HTN - Medications: * Losartan 25mg PO daily, * Coreg 3.125mg PO BID * Started Norvasc 5mg po daily today 12/24/17 * Hydralazine 10mg IV q6 prn for systolic BP >150 Continue to monitor Prophylaxis: Pepcid 40mg po daily Lovenox 40mg SC daily [facility] Palliative Care Consult for Code Status Disposition: Pending rehab placement approval Case discussed with Dr. Beatriz Garcia PGY-1 <Chavez Henderson H - Last Filed: 12/25/17 12:03> Objective - Vital Signs/Intake and Output Vital Signs (last 24 hours): Temp Pulse Resp BP Pulse Ox 98.1 F 70 20 160/84 H 95 12/25/17 07:00 12/25/17 07:00 12/25/17 07:00 12/25/17 07:00 12/25/17 07:00 Intake and Output: 12/25/17 12/25/17 06:59 18:59 Intake Total 240 Balance 240 - Medications Medications: Current Medications Acetylcysteine (Acetylcysteine 20%) 4 ml INH RQ6 [facility] Last Admin: 12/25/17 07:42 Dose: 4 ml Albuterol/Ipratropium (Duoneb 3 Mg/0.5 Mg (3 Ml) Ud) 3 ml INH RQ6 [facility] Last Admin: 12/25/17 07:42 Dose: 3 ml Amlodipine Besylate (Norvasc) 5 mg PEG DAILY [facility] Last Admin: 12/25/17 10:31 Dose: 5 mg Carvedilol (Coreg) 3.125 mg GT BID [facility] Last Admin: 12/25/17 10:31 Dose: 3.125 mg Clopidogrel Bisulfate (Plavix) 75 mg GT DAILY [facility] Last Admin: 12/25/17 10:31 Dose: 75 mg Enoxaparin Sodium (Lovenox) 40 mg SC DAILY [facility] Last Admin: 12/25/17 10:29 Dose: 40 mg Famotidine (Pepcid) 40 mg GT DAILY [facility] Last Admin: 12/25/17 10:31 Dose: 40 mg Fluconazole (Diflucan) 200 mg PEG DAILY [facility] PRN Reason: Protocol Stop: 01/04/18 10:00 Last Admin: 12/25/17 10:31 Dose: 200 mg Hydralazine HCl (Apresoline) 10 mg IVP Q6H PRN PRN Reason: Systolic Blood Pressure Last Admin: 12/23/17 23:51 Dose: 10 mg Insulin Human Regular (Novolin R) 0 unit SC [facility] PRN Reason: Protocol Last Admin: 12/25/17 08:30 Dose: 3 unit Ketorolac Tromethamine (Toradol) 30 mg IVP Q6 PRN PRN Reason: Pain, moderate (4-7) Last Admin: 12/22/17 09:41 Dose: 30 mg Lidocaine (Lidoderm) 1 ea TD DAILY [facility] Last Admin: 12/25/17 10:28 Dose: 1 ea Losartan Potassium (Cozaar) 25 mg GT DAILY [facility] Last Admin: 12/25/17 10:31 Dose: 25 mg Methylprednisolone (Solu-Medrol) 20 mg IV Q12 [facility] Last Admin: 12/25/17 10:28 Dose: 20 mg Rosuvastatin Calcium (Crestor) 10 mg GT HS [facility] Last Admin: 12/24/17 22:24 Dose: 10 mg - Labs Labs: 12/25/17 06:48 12/25/17 06:48 PT 10.7 SECONDS (9.7-12.2) 12/19/17 16:20 INR 1.0 12/19/17 16:20 APTT 26 SECONDS (21-34) 12/19/17 16:20 Attending/Attestation - Attestation I have personally seen and examined this patient.: Yes I have fully participated in the care of the patient.: Yes I have reviewed all pertinent clinical information, including history, physical exam and plan: Yes Notes (Text): 12/25/17 12:00 Medical attending: Patient was seen and examined by me. Agree with the above note by the resident The patient was not in any acute distress when we saw her We asked her how the pain was and she indicated to us that it was very minimal around the g tube site The g tube looks well, there is no leakage and none of the dark melanotic material The patient is now at goal of 40 cc hr for now. In the future possible can go higher but for now will do 40 cc. If by tommorow the accuchecks are comming in higher then maybe we should further adjust insulin. Changed the free water flushes to be Q6hrs now She remains off of IV abx. WBC is ok, no fevers Maybe by this Wednesday or Wednesday can go back to rehab thank you Chavez Henderson 12/25/17 12:03
[2017-12-25] MEDS: MethylPREDNISolone 40 mg Vial IV SCH ×2 (10:28→21:27)
[2017-12-25] MEDS: Lidocaine 5% Patch TD SCH (10:28)
[2017-12-25] MEDS: Enoxaparin 40 mg Syringe SC SCH (10:29)
[2017-12-26] MEDS: Acetylcysteine 20% Inhal Soln (4ml) INH SCH ×4 (01:53→19:38)
[2017-12-26] MEDS: Albuterol-Ipratrop 3 mg / 0.5 (3 ml) UD INH SCH ×4 (01:53→19:38)
--- NOTE | 2017-12-26 06:44 | CP.PCM.PN ---
<Ryan Ayoub - Last Filed: 12/26/17 06:41> Subjective - Date & Time of Evaluation Date of Evaluation: 12/26/17 Time of Evaluation: 06:41 - Subjective Subjective: Patient seen and examined at bedside. No new complaints at this time. No Chest pain or SOB. No fevers or chills, No nausea or vomiting. Objective - Vital Signs/Intake and Output Vital Signs (last 24 hours): Temp Pulse Resp BP Pulse Ox 98.5 F 76 20 164/92 H 99 12/26/17 00:00 12/26/17 00:00 12/26/17 00:00 12/26/17 00:00 12/26/17 00:00 Intake and Output: 12/25/17 12/26/17 18:59 06:59 Intake Total 320 Balance 320 - Medications Medications: Current Medications Acetylcysteine (Acetylcysteine 20%) 4 ml INH RQ6 [facility] Last Admin: 12/26/17 01:53 Dose: 4 ml Albuterol/Ipratropium (Duoneb 3 Mg/0.5 Mg (3 Ml) Ud) 3 ml INH RQ6 [facility] Last Admin: 12/26/17 01:53 Dose: 3 ml Amlodipine Besylate (Norvasc) 5 mg PEG DAILY [facility] Last Admin: 12/25/17 10:31 Dose: 5 mg Carvedilol (Coreg) 3.125 mg GT BID [facility] Last Admin: 12/25/17 17:16 Dose: 3.125 mg Clopidogrel Bisulfate (Plavix) 75 mg GT DAILY [facility] Last Admin: 12/25/17 10:31 Dose: 75 mg Enoxaparin Sodium (Lovenox) 40 mg SC DAILY [facility] Last Admin: 12/25/17 10:29 Dose: 40 mg Famotidine (Pepcid) 40 mg GT DAILY [facility] Last Admin: 12/25/17 10:31 Dose: 40 mg Fluconazole (Diflucan) 200 mg PEG DAILY [facility] PRN Reason: Protocol Stop: 01/04/18 10:00 Last Admin: 12/25/17 10:31 Dose: 200 mg Hydralazine HCl (Apresoline) 10 mg IVP Q6H PRN PRN Reason: Systolic Blood Pressure Last Admin: 12/26/17 01:42 Dose: 10 mg Insulin Human Regular (Novolin R) 0 unit SC ACHS [facility] PRN Reason: Protocol Last Admin: 12/25/17 21:27 Dose: 2 unit Ketorolac Tromethamine (Toradol) 30 mg IVP Q6 PRN PRN Reason: Pain, moderate (4-7) Last Admin: 12/22/17 09:41 Dose: 30 mg Lidocaine (Lidoderm) 1 ea TD DAILY [facility] Last Admin: 12/25/17 10:28 Dose: 1 ea Losartan Potassium (Cozaar) 25 mg GT DAILY [facility] Last Admin: 12/25/17 10:31 Dose: 25 mg Methylprednisolone (Solu-Medrol) 20 mg IV Q12 [facility] Last Admin: 12/25/17 21:27 Dose: 20 mg Rosuvastatin Calcium (Crestor) 10 mg GT HS [facility] Last Admin: 12/25/17 21:27 Dose: 10 mg - Labs Labs: 12/25/17 06:48 12/25/17 06:48 PT 10.7 SECONDS (9.7-12.2) 12/19/17 16:20 INR 1.0 12/19/17 16:20 APTT 26 SECONDS (21-34) 12/19/17 16:20 - Additional Findings Additional findings: - Constitutional Appears: No Acute Distress, Chronically Ill - Head Exam Head Exam: ATRAUMATIC, NORMAL INSPECTION - Eye Exam Eye Exam: EOMI, Normal appearance - ENT Exam ENT Exam: Mucous Membranes Moist - Respiratory Exam Respiratory Exam: NORMAL BREATHING PATTERN Additional comments: trach in place - Cardiovascular Exam Cardiovascular Exam: REGULAR RHYTHM, +S1, +S2 - GI/Abdominal Exam GI & Abdominal Exam: Soft, Normal Bowel Sounds. absent: Tenderness Additional comments: Gtube in place - clean/dry/intact - Extremities Exam Extremities Exam: Normal Inspection - Neurological Exam Neurological Exam: Alert, Awake, Oriented x3 - Psychiatric Exam Psychiatric exam: Normal Affect, Normal Mood - Skin Skin Exam: Normal Color Assessment and Plan - Assessment and Plan (Free Text) Assessment: Gastrostomy site leak General Surgery consulted, Dr. Gamez; help appreciated 12/20: Patient underwent G tube study showing extravasation along the tubing entry site on the left lateral jesica abdominal area. 10/12/17 Patient had a PEG placed by Dr. Gupta. For PEG tube dysfunction, 11/24/17 Patient had G tube placed by Dr. Gamez Surgery consult Dr. Gamez for gastrostomy tube dysfunction IR consult placed by Surgery: Dr. Gupta --> help appreciated - s/p GTube replacement 12/22/17 - Tube feeding goal of 40 Gastrostomy culture (12/21/17): Aggie Albicans - Zosyn 3.375gm IV q8h (started on 12/21/17) --> discontinued 12/24/17 - Started Fluconazole 200mg PEG daily for 2 weeks (stop date 01/04/18) Abdominal Pain - resolved - secondary to Gastrostomy site leak - Medications: * Toradol 30mg IV q6prn for pain * Lidocaine TD UTI 12/20: Pending the urine culture/ She is on IV Cipro 400 BID UA: 1+protein 3+ blood, 3+ Leuk Esterase, WBC 134, RBC 519, Occ bacteria, Occ yeast Afebrile Discontinued Garcia Cipro 500mg PO BID discontinued 12/21/17 due to interaction with Fluconzole and started Zosyn 3.375gm IV q8h (started on 12/21/17) Urine Culture: yeast * Started Fluconazole 200mg PEG daily for 2 weeks (stop date 01/04/18) History of Diabetes mellitus Patient denies hx of DM A1c (11/30/17): 7.2 ISS Hypoglycemia protocol Accuchecks Continue to monitor History of COPD Former heavy smoker (60 pack-years) Chest xray: Limited bibasilar atelectasis or infiltrates developing in the interval. Examination otherwise stable. Was discharged from hospital on 12/16/16 with prescription for cipro 500mg PO BID for hospital acquired pneumonia Continue Cipro 500mg PO BID Duonebs and mucomyst Q6h Solumedrol 20mg IV Q12h Laryngeal cancer 12/20: The family wants chemotherapy - however every time we try to get her to rehab - something else happens and she comes back to the hospital. She is mostly bed bound. 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 Needs continuous tracheostomy care. History of HTN - Medications: * Losartan 25mg PO daily, * Coreg 3.125mg PO BID * Started Norvasc 5mg po daily today 12/24/17 * Hydralazine 10mg IV q6 prn for systolic BP >150 Continue to monitor Prophylaxis: Pepcid 40mg po daily Lovenox 40mg SC daily [facility] Palliative Care Consult for Code Status Disposition: Pending rehab placement approval <Chavez Henderson H - Last Filed: 12/26/17 10:19> Objective - Vital Signs/Intake and Output Vital Signs (last 24 hours): Temp Pulse Resp BP Pulse Ox 97.7 F 80 20 163/83 H 98 12/26/17 07:00 12/26/17 07:58 12/26/17 07:00 12/26/17 07:00 12/26/17 07:00 Intake and Output: 12/26/17 12/26/17 06:59 18:59 Intake Total 320 Balance 320 - Medications Medications: Current Medications Acetylcysteine (Acetylcysteine 20%) 4 ml INH RQ6 [facility] Last Admin: 12/26/17 07:55 Dose: 4 ml Albuterol/Ipratropium (Duoneb 3 Mg/0.5 Mg (3 Ml) Ud) 3 ml INH RQ6 [facility] Last Admin: 12/26/17 07:55 Dose: 3 ml Amlodipine Besylate (Norvasc) 5 mg PEG DAILY [facility] Last Admin: 12/26/17 09:50 Dose: 5 mg Carvedilol (Coreg) 3.125 mg GT BID [facility] Last Admin: 12/26/17 09:49 Dose: 3.125 mg Clopidogrel Bisulfate (Plavix) 75 mg GT DAILY [facility] Last Admin: 12/26/17 09:50 Dose: 75 mg Enoxaparin Sodium (Lovenox) 40 mg SC DAILY [facility] Last Admin: 12/26/17 09:49 Dose: 40 mg Famotidine (Pepcid) 40 mg GT DAILY [facility] Last Admin: 12/25/17 10:31 Dose: 40 mg Fluconazole (Diflucan) 200 mg PEG DAILY [facility] PRN Reason: Protocol Stop: 01/04/18 10:00 Last Admin: 12/25/17 10:31 Dose: 200 mg Hydralazine HCl (Apresoline) 10 mg IVP Q6H PRN PRN Reason: Systolic Blood Pressure Last Admin: 12/26/17 01:42 Dose: 10 mg Insulin Glargine (Lantus) 15 unit SC DAILY@1700 [facility] Insulin Human Regular (Novolin R) 0 unit SC ACHS [facility] PRN Reason: Protocol Last Admin: 12/26/17 08:25 Dose: 6 unit Ketorolac Tromethamine (Toradol) 30 mg IVP Q6 PRN PRN Reason: Pain, moderate (4-7) Last Admin: 12/22/17 09:41 Dose: 30 mg Lidocaine (Lidoderm) 1 ea TD DAILY [facility] Last Admin: 12/26/17 09:49 Dose: 1 ea Losartan Potassium (Cozaar) 25 mg GT DAILY [facility] Last Admin: 12/26/17 09:52 Dose: Not Given Methylprednisolone (Solu-Medrol) 20 mg IV Q12 [facility] Last Admin: 12/26/17 09:48 Dose: 20 mg Rosuvastatin Calcium (Crestor) 10 mg GT HS [facility] Last Admin: 12/25/17 21:27 Dose: 10 mg - Labs Labs: 12/26/17 07:58 12/26/17 07:58 PT 10.7 SECONDS (9.7-12.2) 12/19/17 16:20 INR 1.0 12/19/17 16:20 APTT 26 SECONDS (21-34) 12/19/17 16:20 Attending/Attestation - Attestation I have personally seen and examined this patient.: Yes I have fully participated in the care of the patient.: Yes I have reviewed all pertinent clinical information, including history, physical exam and plan: Yes Notes (Text): 12/26/17 10:16 Medical attending: Patient was seen and examined by me as well. Agree with the above note by the resident. She reported only minimal pain at the G tube site today She is now at 40 cc / hr of the Jevity 1.5 Her blood sugars have been running higher as she is on solumedrol and also she has had increasing Jevity rate Possible that if she remains stable then she maybe able to go back to rehab, however as lead case manager explained to me on Wednesday that she would need reauthorization thank you Chavez Henderson
[2017-12-26 08:05] LABS: BASO % 0.2 % (0.0-2.0); HEMOGLOBIN 12.4 g/dL (11.0-16.0); LYMPH # 0.3 K/uL (1.0-4.3); LYMPH % 3.8 % (20.0-40.0); MEAN CELL VOLUME 84.1 fL (81.0-99.0); MEAN CORPUSCULAR HEMOGLOBIN 30.2 pg (27.0-31.0); MEAN CORPUSCULAR HGB CONC 35.9 g/dL (33.0-37.0); MEAN PLATELET VOLUME 7.3 fL (7.2-11.7); MONO # 0.5 K/uL (0.0-0.8); NEUT # 7.8 K/uL (1.8-7.0); PLATELET COUNT 177 K/uL (130-400); RBC 4.11 Mil/uL (3.80-5.20); RED CELL DISTRIBUTION WIDTH 16.8 % (11.5-14.5); WHITE BLOOD COUNT 8.7 K/uL (4.8-10.8)
[2017-12-26] MEDS: (Novolin R) Insulin Human Regular 100 units/ml vial SC SCH ×4 (08:25→21:21)
[2017-12-26 08:33] LABS: ALB/GLOB RATIO 1.2 (1.0-2.1); ALBUMIN 2.7 g/dL (3.5-5.0); ALT/SGPT 51 U/L (9-52); AST/SGOT 21 U/L (14-36); BLOOD UREA NITROGEN 24 mg/dL (7-17); CALCIUM 8.2 mg/dl (8.6-10.4); GFR AFRICAN-AMERICAN > 60; GFR NON-AFRICAN AMERICAN > 60
[2017-12-26 08:58] LABS: LYMPHOCYTE 3 % (20-40); MONOCYTE 5 % (0-10); NEUTROPHIL 92 % (50-75); TOTAL CELLS COUNTED 100
[2017-12-26 09:00] LABS: ANISOCYTOSIS SLIGHT; PLATELET ESTIMATE NORMAL (NORMAL)
[2017-12-26] MEDS: MethylPREDNISolone 40 mg Vial IV SCH ×2 (09:48→21:40)
[2017-12-26] MEDS: Lidocaine 5% Patch TD SCH (09:49)
[2017-12-26] MEDS: Enoxaparin 40 mg Syringe SC SCH (09:49)
[2017-12-26] MEDS ORDERED: (Lantus) Insulin Glargine, Recombinant SC SCH (17:00)
[2017-12-27] MEDS: Albuterol-Ipratrop 3 mg / 0.5 (3 ml) UD INH SCH ×4 (01:41→19:59)
[2017-12-27] MEDS: Acetylcysteine 20% Inhal Soln (4ml) INH SCH ×4 (01:41→19:59)
[2017-12-27 08:10] LABS: BASO % 0.1 % (0.0-2.0); HEMOGLOBIN 12.4 g/dL (11.0-16.0); LYMPH # 0.4 K/uL (1.0-4.3); LYMPH % 4.7 % (20.0-40.0); MEAN CELL VOLUME 85.4 fL (81.0-99.0); MEAN CORPUSCULAR HEMOGLOBIN 29.8 pg (27.0-31.0); MEAN CORPUSCULAR HGB CONC 34.9 g/dL (33.0-37.0); MEAN PLATELET VOLUME 7.7 fL (7.2-11.7); MONO # 0.4 K/uL (0.0-0.8); MONO % 5.2 % (0.0-10.0); NEUT # 7.6 K/uL (1.8-7.0); NRBC % 0.1 % (0.0-2.0); PLATELET COUNT 197 K/uL (130-400); RBC 4.17 Mil/uL (3.80-5.20); RED CELL DISTRIBUTION WIDTH 17.3 % (11.5-14.5); WHITE BLOOD COUNT 8.4 K/uL (4.8-10.8)
[2017-12-27 08:17] LABS: ALB/GLOB RATIO 1.2 (1.0-2.1); ALBUMIN 2.9 g/dL (3.5-5.0); ALT/SGPT 50 U/L (9-52); AST/SGOT 26 U/L (14-36); BLOOD UREA NITROGEN 24 mg/dL (7-17); CALCIUM 8.5 mg/dl (8.6-10.4); GFR AFRICAN-AMERICAN > 60; GFR NON-AFRICAN AMERICAN > 60
[2017-12-27] MEDS: (Novolin R) Insulin Human Regular 100 units/ml vial SC SCH ×4 (08:24→21:51)
[2017-12-27 08:54] LABS: ANISOCYTOSIS SLIGHT; BURR CELLS SLIGHT; LYMPHOCYTE 4 % (20-40); MONOCYTE 2 % (0-10); NEUTROPHIL 94 % (50-75); PLATELET ESTIMATE NORMAL (NORMAL); POIKILOCYTOSIS SLIGHT; TOTAL CELLS COUNTED 100
[2017-12-27] MEDS: Enoxaparin 40 mg Syringe SC SCH (09:42)
[2017-12-27] MEDS: Lidocaine 5% Patch TD SCH (09:42)
--- NOTE | 2017-12-27 11:52 | CP.PCM.PN ---
<Gi Garcia - Last Filed: 12/27/17 11:49> Subjective - Date & Time of Evaluation Date of Evaluation: 12/27/17 Time of Evaluation: 07:00 - Subjective Subjective: Medicine Progress Note: Patient was seen and examined at bedside in the AM. Patient denies any abdominal pain and states she slept well overnight. Patient denies chest pain, palpitations, fever, nausea or vomiting. Objective - Vital Signs/Intake and Output Vital Signs (last 24 hours): Temp Pulse Resp BP Pulse Ox 98.3 F 81 20 153/74 H 98 12/27/17 07:00 12/27/17 07:00 12/27/17 07:00 12/27/17 07:00 12/27/17 07:00 - Medications Medications: Current Medications Acetylcysteine (Acetylcysteine 20%) 4 ml INH RQ6 [facility] Last Admin: 12/27/17 08:07 Dose: 4 ml Albuterol/Ipratropium (Duoneb 3 Mg/0.5 Mg (3 Ml) Ud) 3 ml INH RQ6 [facility] Last Admin: 12/27/17 08:07 Dose: 3 ml Amlodipine Besylate (Norvasc) 5 mg PEG DAILY [facility] Last Admin: 12/27/17 09:43 Dose: 5 mg Carvedilol (Coreg) 3.125 mg GT BID [facility] Last Admin: 12/27/17 09:58 Dose: 3.125 mg Clopidogrel Bisulfate (Plavix) 75 mg GT DAILY [facility] Last Admin: 12/27/17 09:42 Dose: 75 mg Enoxaparin Sodium (Lovenox) 40 mg SC DAILY [facility] Last Admin: 12/26/17 09:49 Dose: 40 mg Famotidine (Pepcid) 40 mg GT DAILY [facility] Last Admin: 12/27/17 09:43 Dose: 40 mg Fluconazole (Diflucan) 200 mg PEG DAILY [facility] PRN Reason: Protocol Stop: 12/28/17 10:00 Last Admin: 12/27/17 09:42 Dose: 200 mg Hydralazine HCl (Apresoline) 10 mg IVP Q6H PRN PRN Reason: Systolic Blood Pressure Last Admin: 12/26/17 01:42 Dose: 10 mg Insulin Glargine (Lantus) 20 unit SC DAILY@1700 [facility] Insulin Human Regular (Novolin R) 0 unit SC ACHS [facility] PRN Reason: Protocol Last Admin: 12/27/17 08:24 Dose: 6 unit Ketorolac Tromethamine (Toradol) 30 mg IVP Q6 PRN PRN Reason: Pain, moderate (4-7) Last Admin: 12/22/17 09:41 Dose: 30 mg Lidocaine (Lidoderm) 1 ea TD DAILY [facility] Last Admin: 12/26/17 09:49 Dose: 1 ea Losartan Potassium (Cozaar) 50 mg GT DAILY [facility] Last Admin: 12/27/17 09:58 Dose: 50 mg Methylprednisolone (Solu-Medrol) 20 mg IV Q12 [facility] Last Admin: 12/26/17 21:40 Dose: 20 mg Rosuvastatin Calcium (Crestor) 10 mg GT HS [facility] Last Admin: 12/26/17 21:40 Dose: 10 mg - Labs Labs: 12/27/17 07:47 12/27/17 07:47 PT 10.7 SECONDS (9.7-12.2) 12/19/17 16:20 INR 1.0 12/19/17 16:20 APTT 26 SECONDS (21-34) 12/19/17 16:20 - Constitutional Appears: No Acute Distress, Chronically Ill - Head Exam Head Exam: ATRAUMATIC, NORMAL INSPECTION - Eye Exam Eye Exam: EOMI, Normal appearance - ENT Exam ENT Exam: Mucous Membranes Moist - Neck Exam Additional comments: trach in place - Respiratory Exam Respiratory Exam: NORMAL BREATHING PATTERN - Cardiovascular Exam Cardiovascular Exam: REGULAR RHYTHM, +S1, +S2 - GI/Abdominal Exam GI & Abdominal Exam: Soft, Normal Bowel Sounds. absent: Tenderness Additional comments: G-tube in place - clean/dry/intact - Extremities Exam Extremities Exam: Normal Inspection - Neurological Exam Neurological Exam: Alert, Awake, Oriented x3 - Psychiatric Exam Psychiatric exam: Normal Affect, Normal Mood - Skin Skin Exam: Normal Color Assessment and Plan - Assessment and Plan (Free Text) Assessment: Disposition: Pending approval for JOYCE s/p GTube replacement 12/22/17 tube feedings and medications restarted 12/23/17 Gastrostomy site leak General Surgery consulted, Dr. Gamez; help appreciated 12/20: Patient underwent G tube study showing extravasation along the tubing entry site on the left lateral jesica abdominal area. 10/12/17 Patient had a PEG placed by Dr. Gupta. For PEG tube dysfunction, 11/24/17 Patient had G tube placed by Dr. Gamez Surgery consult Dr. Gamez for gastrostomy tube dysfunction IR consult placed by Surgery: Dr. Gupta --> help appreciated - s/p GTube replacement 12/22/17 - Tube feeding goal of 40 Gastrostomy culture (12/21/17): Bautista Albicans - Zosyn 3.375gm IV q8h (started on 12/21/17) --> discontinued 12/24/17 - Started Fluconazole 200mg PEG daily for 2 weeks (stop date 01/04/18) Abdominal Pain - resolved - secondary to Gastrostomy site leak - Medications: * Toradol 30mg IV q6prn for pain * Lidocaine TD UTI 12/20: Pending the urine culture/ She is on IV Cipro 400 BID UA: 1+protein 3+ blood, 3+ Leuk Esterase, WBC 134, RBC 519, Occ bacteria, Occ yeast Afebrile Discontinued Garcia Cipro 500mg PO BID discontinued 12/21/17 due to interaction with Fluconzole and started Zosyn 3.375gm IV q8h (started on 12/21/17) Urine Culture: yeast * Started Fluconazole 200mg PEG daily for 2 weeks (stop date 01/04/18) History of Diabetes mellitus Patient denies hx of DM A1c (11/30/17): 7.2 ISS Hypoglycemia protocol Accuchecks Continue to monitor History of COPD Former heavy smoker (60 pack-years) Chest xray: f/u results Was discharged from hospital on 12/16/16 with prescription for cipro 500mg PO BID for hospital acquired pneumonia Continue Cipro 500mg PO BID Duonebs and mucomyst Q6h Solumedrol 20mg IV Q12h Laryngeal cancer 12/20: The family wants chemotherapy - however everytime we try to get her to rehab - something else happens and she comes back to the hospital. She is mostly bed bound. 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 Needs continuous tracheostomy care. History of HTN - Medications: * Losartan 50mg PO daily, * Coreg 3.125mg PO BID * Started Norvasc 5mg po daily today 12/24/17 * Hydralazine 10mg IV q6 prn for systolic BP >150 Continue to monitor Prophylaxis: Pepcid 40mg po daily Lovenox 40mg SC daily SCDs Palliative Care Consult for Code Status Case discussed with Dr. Angel Garcia PGY-1 <Kanu Ortiz - Last Filed: 12/27/17 15:45> Objective - Vital Signs/Intake and Output Vital Signs (last 24 hours): Temp Pulse Resp BP Pulse Ox 98.3 F 101 H 20 153/74 H 98 12/27/17 07:00 12/27/17 07:55 12/27/17 07:00 12/27/17 07:00 12/27/17 07:00 - Medications Medications: Current Medications Acetylcysteine (Acetylcysteine 20%) 4 ml INH RQ6 [facility] Last Admin: 12/27/17 13:55 Dose: 4 ml Albuterol/Ipratropium (Duoneb 3 Mg/0.5 Mg (3 Ml) Ud) 3 ml INH RQ6 [facility] Last Admin: 12/27/17 13:55 Dose: 3 ml Amlodipine Besylate (Norvasc) 5 mg PEG DAILY [facility] Last Admin: 12/27/17 09:43 Dose: 5 mg Carvedilol (Coreg) 3.125 mg GT BID [facility] Last Admin: 12/27/17 09:58 Dose: 3.125 mg Clopidogrel Bisulfate (Plavix) 75 mg GT DAILY [facility] Last Admin: 12/27/17 09:42 Dose: 75 mg Enoxaparin Sodium (Lovenox) 40 mg SC DAILY [facility] Last Admin: 12/27/17 09:42 Dose: 40 mg Famotidine (Pepcid) 40 mg GT DAILY [facility] Last Admin: 12/27/17 09:43 Dose: 40 mg Fluconazole (Diflucan) 200 mg PEG DAILY [facility] PRN Reason: Protocol Stop: 12/28/17 10:00 Last Admin: 12/27/17 09:42 Dose: 200 mg Hydralazine HCl (Apresoline) 10 mg IVP Q6H PRN PRN Reason: Systolic Blood Pressure Last Admin: 12/26/17 01:42 Dose: 10 mg Insulin Glargine (Lantus) 20 unit SC DAILY@1700 [facility] Insulin Human Regular (Novolin R) 0 unit SC ACHS [facility] PRN Reason: Protocol Last Admin: 12/27/17 12:20 Dose: 6 unit Ketorolac Tromethamine (Toradol) 30 mg IVP Q6 PRN PRN Reason: Pain, moderate (4-7) Last Admin: 12/22/17 09:41 Dose: 30 mg Lidocaine (Lidoderm) 1 ea TD DAILY [facility] Last Admin: 12/27/17 09:42 Dose: 1 ea Losartan Potassium (Cozaar) 50 mg GT DAILY [facility] Last Admin: 12/27/17 09:58 Dose: 50 mg Methylprednisolone (Solu-Medrol) 20 mg IV Q12 [facility] Last Admin: 12/27/17 12:24 Dose: 20 mg Rosuvastatin Calcium (Crestor) 10 mg GT HS [facility] Last Admin: 12/26/17 21:40 Dose: 10 mg - Labs Labs: 12/27/17 07:47 12/27/17 07:47 PT 10.7 SECONDS (9.7-12.2) 12/19/17 16:20 INR 1.0 12/19/17 16:20 APTT 26 SECONDS (21-34) 12/19/17 16:20 Attending/Attestation - Attestation I have personally seen and examined this patient.: Yes I have fully participated in the care of the patient.: Yes I have reviewed all pertinent clinical information, including history, physical exam and plan: Yes Notes (Text): Seen and examined by . Lying comfortable.No sob,no fever,no GT leak s/p GT placement by IR patient has GT site bautista/skin infection and light faley urine growth/ asymptomatic . Complete diflucan one week treatment Assessment and the plan discussed I agree with the resident's assessment and the plan
[2017-12-27] MEDS: MethylPREDNISolone 40 mg Vial IV SCH ×2 (12:24→21:53)
[2017-12-27] MEDS ORDERED: (Lantus) Insulin Glargine, Recombinant SC SCH (17:00)
[2017-12-28] MEDS: Acetylcysteine 20% Inhal Soln (4ml) INH SCH ×3 (01:15→13:37)
[2017-12-28] MEDS: Albuterol-Ipratrop 3 mg / 0.5 (3 ml) UD INH SCH ×3 (01:15→13:37)
[2017-12-28 07:37] LABS: ALB/GLOB RATIO 1.2 (1.0-2.1); ALBUMIN 2.7 g/dL (3.5-5.0); ALT/SGPT 43 U/L (9-52); AST/SGOT 22 U/L (14-36); BLOOD UREA NITROGEN 25 mg/dL (7-17); CALCIUM 8.4 mg/dl (8.6-10.4); GFR AFRICAN-AMERICAN > 60; GFR NON-AFRICAN AMERICAN > 60
[2017-12-28 07:56] LABS: HEMOGLOBIN 10.9 g/dL (11.0-16.0); MEAN CELL VOLUME 85.9 fL (81.0-99.0); MEAN CORPUSCULAR HEMOGLOBIN 30.5 pg (27.0-31.0); MEAN CORPUSCULAR HGB CONC 35.5 g/dL (33.0-37.0); RBC 3.58 Mil/uL (3.80-5.20); RED CELL DISTRIBUTION WIDTH 16.9 % (11.5-14.5)
[2017-12-28 07:57] LABS: WHITE BLOOD COUNT 8.1 K/uL (4.8-10.8)
[2017-12-28] MEDS: (Novolin R) Insulin Human Regular 100 units/ml vial SC SCH ×2 (08:18→12:18)
[2017-12-28] MEDS: Enoxaparin 40 mg Syringe SC SCH (10:52)
[2017-12-28] MEDS: MethylPREDNISolone 40 mg Vial IV SCH ×2 (10:52→11:27)
[2017-12-28] MEDS: Lidocaine 5% Patch TD SCH (10:53)
[2017-12-28 11:14] LABS: BASO % 0.3 % (0.0-2.0); EOS % 0.1 % (0.0-4.0); LYMPH # 0.4 K/uL (1.0-4.3); MEAN PLATELET VOLUME 8.5 fL (7.2-11.7); MONO # 0.4 K/uL (0.0-0.8); MONO % 4.7 % (0.0-10.0); NEUT # 7.3 K/uL (1.8-7.0); NEUT % 89.9 % (50.0-75.0); PLATELET COUNT 223 K/uL (130-400)
[2017-12-28 11:17] LABS: BANDS 3 % (0-2); LYMPHOCYTE 6 % (20-40); MONOCYTE 3 % (0-10); NEUTROPHIL 88 % (50-75); NUCLEATED RED BLOOD CELL 1 % (0-0); PLATELET ESTIMATE NORMAL (NORMAL); TOTAL CELLS COUNTED 100
[2017-12-28 11:18] LABS: ANISOCYTOSIS SLIGHT; BURR CELLS SLIGHT
[2017-12-28 11:20] VITALS: RESP 18
--- NOTE | 2017-12-28 14:59 | CP.PCM.DIS ---
<Gi Garcia - Last Filed: 12/28/17 14:55> Provider - Provider Date of Admission: 12/18/17 23:24 Attending physician: Kanu Ortiz MD Time Spent in preparation of Discharge (in minutes): 40 Hospital Course - Lab Results Lab Results: Micro Results 12/21/17 11:51 Abdomen Gram Stain - Final 12/21/17 11:51 Abdomen Wound Culture - Final Bautista Albicans 12/18/17 22:19 Urine,Douglass Urine Culture - Final Yeast Species Most Recent Lab Values WBC 8.1 K/uL (4.8-10.8) 12/28/17 07:09 RBC 3.58 Mil/uL (3.80-5.20) L 12/28/17 07:09 Hgb 10.9 g/dL (11.0-16.0) L 12/28/17 07:09 Hct 30.8 % (34.0-47.0) L 12/28/17 07:09 MCV 85.9 fL (81.0-99.0) 12/28/17 07:09 MCH 30.5 pg (27.0-31.0) 12/28/17 07:09 MCHC 35.5 g/dL (33.0-37.0) 12/28/17 07:09 RDW 16.9 % (11.5-14.5) H 12/28/17 07:09 Plt Count 223 K/uL (130-400) 12/28/17 07:09 MPV 8.5 fL (7.2-11.7) 12/28/17 07:09 Neut % (Auto) 89.9 % (50.0-75.0) H 12/28/17 07:09 Lymph % (Auto) 5.0 % (20.0-40.0) L 12/28/17 07:09 [place] % (Auto) 4.7 % (0.0-10.0) 12/28/17 07:09 Eos % (Auto) 0.1 % (0.0-4.0) 12/28/17 07:09 Baso % (Auto) 0.3 % (0.0-2.0) 12/28/17 07:09 Neut # (Auto) 7.3 K/uL (1.8-7.0) H 12/28/17 07:09 Lymph # (Auto) 0.4 K/uL (1.0-4.3) L 12/28/17 07:09 [place] # (Auto) 0.4 K/uL (0.0-0.8) 12/28/17 07:09 Eos # (Auto) 0.0 K/uL (0.0-0.7) 12/28/17 07:09 Baso # (Auto) 0.0 K/uL (0.0-0.2) 12/28/17 07:09 Neutrophils % (Manual) 88 % (50-75) H 12/28/17 07:09 Band Neutrophils % 3 % (0-2) H 12/28/17 07:09 Lymphocytes % (Manual) 6 % (20-40) L 12/28/17 07:09 Reactive Lymphs % 1 % (0-0) H 12/24/17 07:38 Monocytes % (Manual) 3 % (0-10) 12/28/17 07:09 Nucleated RBC % 1 % (0-0) H 12/28/17 07:09 Platelet Estimate Normal (NORMAL) 12/28/17 07:09 Polychromasia Slight 12/20/17 07:13 Hypochromasia (manual) Slight 12/20/17 07:13 Poikilocytosis (manual Slight 12/27/17 07:47 Anisocytosis (manual) Slight 12/28/17 07:09 Ovalocytes Slight 12/24/17 07:38 Alison Cells Slight 12/28/17 07:09 PT 10.7 SECONDS (9.7-12.2) 12/19/17 16:20 INR 1.0 12/19/17 16:20 APTT 26 SECONDS (21-34) 12/19/17 16:20 Sodium 131 mmol/L (132-148) L 12/28/17 07:09 Potassium 4.1 mmol/L (3.6-5.2) 12/28/17 07:09 Chloride 93 mmol/L (98-107) L 12/28/17 07:09 Carbon Dioxide 32 mmol/L (22-30) H 12/28/17 07:09 Anion Gap 10 (10-20) 12/28/17 07:09 BUN 25 mg/dL (7-17) H 12/28/17 07:09 Creatinine 0.5 mg/dL (0.7-1.2) L 12/28/17 07:09 Est GFR ( Amer) > 60 12/28/17 07:09 Est GFR (Non-Af Amer) > 60 12/28/17 07:09 POC Glucose (mg/dL) 253 mg/dL (65-110) H 12/28/17 11:00 Random Glucose 201 mg/dL (65-105) H 12/28/17 07:09 Calcium 8.4 mg/dl (8.6-10.4) L 12/28/17 07:09 Phosphorus 2.8 mg/dL (2.5-4.5) 12/28/17 07:09 Magnesium 2.0 mg/dL (1.6-2.3) 12/28/17 07:09 Total Bilirubin 0.3 mg/dL (0.2-1.3) 12/28/17 07:09 AST 22 U/L (14-36) 12/28/17 07:09 ALT 43 U/L (9-52) 12/28/17 07:09 Alkaline Phosphatase 71 U/L (38-126) 12/28/17 07:09 Total Protein 5.1 g/dL (6.3-8.3) L 12/28/17 07:09 Albumin 2.7 g/dL (3.5-5.0) L 12/28/17 07:09 Globulin 2.4 gm/dL (2.2-3.9) 12/28/17 07:09 Albumin/Globulin Ratio 1.2 (1.0-2.1) 12/28/17 07:09 Urine Color Yellow (YELLOW) 12/18/17 22:19 Urine Clarity Turbid (Clear) 12/18/17 22:19 Urine pH 9.0 (5.0-8.0) 12/18/17 22:19 Ur Specific [place] 1.014 (1.003-1.030) 12/18/17 22:19 Urine Protein 1+ mg/dL (NEGATIVE) H 12/18/17 22:19 Urine Glucose (UA) Normal mg/dL (Normal) 12/18/17 22:19 Urine Ketones Negative mg/dL (NEGATIVE) 12/18/17 22:19 Urine Blood 3+ (NEGATIVE) H 12/18/17 22:19 Urine Nitrate Negative (NEGATIVE) 12/18/17 22:19 Urine Bilirubin Negative (NEGATIVE) 12/18/17 22:19 Urine Urobilinogen Normal mg/dL (0.2-1.0) 12/18/17 22:19 Ur Leukocyte Esterase 3+ Arnie/uL (Negative) H 12/18/17 22:19 Urine WBC (Auto) 134 /hpf (0-5) H 12/18/17 22:19 Urine RBC (Auto) 519 /hpf (0-3) H 12/18/17 22:19 Ur Squamous Epith Cells 2 /hpf (0-5) 12/18/17 22:19 Amorphous Sediment Few /ul (<OCC) H 12/18/17 22:19 Urine Bacteria Occ (<OCC) H 12/18/17 22:19 Ur Yeast w Hyphae Occ /lpf (NEGATIVE) H 12/18/17 22:19 - Hospital Course Hospital Course: Patient is a 72 year old female with a history of squamous cell laryngeal cancer with lymph node metastasis, HTN, DM, CHF, COPD, CAD, who presents to the ED with complaints of gastrostomy leakage. Patient's granddaughter is at bedside and contributing to history as patient is unable to speak. The leakage was noticed this afternoon around 3pm. Patient was recently hospitalized for hospital acquired pneumonia and was discharge to home on 12/16/17. Patient was sent home with the douglass still in place. Per the granddaughter, while they were in the ER, they noticed blood in the urine. The patient currently denies fevers , chills, dyspnea, nausea, vomiting, headaches, chest pain, dyspnea, and abdominal pain (patient nodding head in response to review of systems). PMD: Dr. 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 FamHx: Father, Brother- [place] SocHx: Former smoker (60 pack years); denies drug and alcohol use; lives with granddaughter, but currently at [facility]. Allergies: NKDA Medications: [per EMR] Ventolin, Asa 81mg daily, coreg 3.125mg daily, cipro 500mg bid (for 3 days, given at discharge), plavix 75mg po daily, pepcid 40mg daily, losartan 25mg daily Hospital Course: Patient was admitted for a gastrosomy site leak. IR Dr. Gupta was consulted to replaced the G-tube on 12/22/17. Patient's tube feedings and medications were then restarted on 12/23/17. Prior to the replacement on 12/21/17 patient was found to have bautista at her g-tube and yeast in her urine. Patient was started on Fluconazole for one week. Patient's home medications were then restarted. Patient was seen and examined at bedside in the AM. Patient denies any abdominal pain and states she slept well overnight. Patient denies chest pain, palpitations, fever, nausea or vomiting. Patient was discharged to rehab. This is a summary of the patient's hospitalization, please review EMR for further details. Discharge Exam - Head Exam Head Exam: ATRAUMATIC, NORMAL INSPECTION - Eye Exam Eye Exam: EOMI, Normal appearance, PERRL Pupil Exam: NORMAL ACCOMODATION - ENT Exam ENT Exam: Mucous Membranes Moist - Neck Exam Additional comments: Trach in place - Respiratory Exam Respiratory Exam: Clear to PA & Lateral, NORMAL BREATHING PATTERN - Cardiovascular Exam Cardiovascular Exam: REGULAR RHYTHM, +S1, +S2 - GI/Abdominal Exam GI & Abdominal Exam: Normal Bowel Sounds, Soft. absent: Tenderness Additional comments: Gtube in place - clean/dry/intact - Extremities Exam Extremities exam: normal inspection - Neurological Exam Neurological exam: Alert, Oriented x3 - Psychiatric Exam Psychiatric exam: Normal Affect, Normal Mood - Skin Skin Exam: Normal Color Discharge Plan - Discharge Medications Prescriptions: Methylprednisolone [Medrol Dose Pack (21 tabs)] 4 mg PEG DAILY #21 mg - Follow Up Plan Condition: STABLE Disposition: REHAB FACILITY/REHAB UNIT Instructions: Laryngeal Cancer, Type 2 Diabetes, How to Care for Your PEG Tube , Diabetes Diet , Methylprednisolone, Urinary Tract Infection in Women (DC) Referrals: Nael Gupta MD [Staff Provider] - Pop Gamez MD [Staff Provider] - Navarro Tyler MD [Staff Provider] - <Kanu Oritz - Last Filed: 12/28/17 16:24> Provider - Provider Date of Admission: 12/18/17 23:24 Attending physician: Kanu Ortiz MD Hospital Course - Lab Results Lab Results: Micro Results 12/21/17 11:51 Abdomen Gram Stain - Final 12/21/17 11:51 Abdomen Wound Culture - Final Bautista Albicans 12/18/17 22:19 Urine,Douglass Urine Culture - Final Yeast Species Most Recent Lab Values WBC 8.1 K/uL (4.8-10.8) 12/28/17 07:09 RBC 3.58 Mil/uL (3.80-5.20) L 12/28/17 07:09 Hgb 10.9 g/dL (11.0-16.0) L 12/28/17 07:09 Hct 30.8 % (34.0-47.0) L 12/28/17 07:09 MCV 85.9 fL (81.0-99.0) 12/28/17 07:09 MCH 30.5 pg (27.0-31.0) 12/28/17 07:09 MCHC 35.5 g/dL (33.0-37.0) 12/28/17 07:09 RDW 16.9 % (11.5-14.5) H 12/28/17 07:09 Plt Count 223 K/uL (130-400) 12/28/17 07:09 MPV 8.5 fL (7.2-11.7) 12/28/17 07:09 Neut % (Auto) 89.9 % (50.0-75.0) H 12/28/17 07:09 Lymph % (Auto) 5.0 % (20.0-40.0) L 12/28/17 07:09 [place] % (Auto) 4.7 % (0.0-10.0) 12/28/17 07:09 Eos % (Auto) 0.1 % (0.0-4.0) 12/28/17 07:09 Baso % (Auto) 0.3 % (0.0-2.0) 12/28/17 07:09 Neut # (Auto) 7.3 K/uL (1.8-7.0) H 12/28/17 07:09 Lymph # (Auto) 0.4 K/uL (1.0-4.3) L 12/28/17 07:09 [place] # (Auto) 0.4 K/uL (0.0-0.8) 12/28/17 07:09 Eos # (Auto) 0.0 K/uL (0.0-0.7) 12/28/17 07:09 Baso # (Auto) 0.0 K/uL (0.0-0.2) 12/28/17 07:09 Neutrophils % (Manual) 88 % (50-75) H 12/28/17 07:09 Band Neutrophils % 3 % (0-2) H 12/28/17 07:09 Lymphocytes % (Manual) 6 % (20-40) L 12/28/17 07:09 Reactive Lymphs % 1 % (0-0) H 12/24/17 07:38 Monocytes % (Manual) 3 % (0-10) 12/28/17 07:09 Nucleated RBC % 1 % (0-0) H 12/28/17 07:09 Platelet Estimate Normal (NORMAL) 12/28/17 07:09 Polychromasia Slight 12/20/17 07:13 Hypochromasia (manual) Slight 12/20/17 07:13 Poikilocytosis (manual Slight 12/27/17 07:47 Anisocytosis (manual) Slight 12/28/17 07:09 Ovalocytes Slight 12/24/17 07:38 Alison Cells Slight 12/28/17 07:09 PT 10.7 SECONDS (9.7-12.2) 12/19/17 16:20 INR 1.0 12/19/17 16:20 APTT 26 SECONDS (21-34) 12/19/17 16:20 Sodium 131 mmol/L (132-148) L 12/28/17 07:09 Potassium 4.1 mmol/L (3.6-5.2) 12/28/17 07:09 Chloride 93 mmol/L (98-107) L 12/28/17 07:09 Carbon Dioxide 32 mmol/L (22-30) H 12/28/17 07:09 Anion Gap 10 (10-20) 12/28/17 07:09 BUN 25 mg/dL (7-17) H 12/28/17 07:09 Creatinine 0.5 mg/dL (0.7-1.2) L 12/28/17 07:09 Est GFR ( Amer) > 60 12/28/17 07:09 Est GFR (Non-Af Amer) > 60 12/28/17 07:09 POC Glucose (mg/dL) 194 mg/dL (65-110) H 12/28/17 15:57 Random Glucose 201 mg/dL (65-105) H 12/28/17 07:09 Calcium 8.4 mg/dl (8.6-10.4) L 12/28/17 07:09 Phosphorus 2.8 mg/dL (2.5-4.5) 12/28/17 07:09 Magnesium 2.0 mg/dL (1.6-2.3) 12/28/17 07:09 Total Bilirubin 0.3 mg/dL (0.2-1.3) 12/28/17 07:09 AST 22 U/L (14-36) 12/28/17 07:09 ALT 43 U/L (9-52) 12/28/17 07:09 Alkaline Phosphatase 71 U/L (38-126) 12/28/17 07:09 Total Protein 5.1 g/dL (6.3-8.3) L 12/28/17 07:09 Albumin 2.7 g/dL (3.5-5.0) L 12/28/17 07:09 Globulin 2.4 gm/dL (2.2-3.9) 12/28/17 07:09 Albumin/Globulin Ratio 1.2 (1.0-2.1) 12/28/17 07:09 Urine Color Yellow (YELLOW) 12/18/17 22:19 Urine Clarity Turbid (Clear) 12/18/17 22:19 Urine pH 9.0 (5.0-8.0) 12/18/17 22:19 Ur Specific [place] 1.014 (1.003-1.030) 12/18/17 22:19 Urine Protein 1+ mg/dL (NEGATIVE) H 12/18/17 22:19 Urine Glucose (UA) Normal mg/dL (Normal) 12/18/17 22:19 Urine Ketones Negative mg/dL (NEGATIVE) 12/18/17 22:19 Urine Blood 3+ (NEGATIVE) H 12/18/17 22:19 Urine Nitrate Negative (NEGATIVE) 12/18/17 22:19 Urine Bilirubin Negative (NEGATIVE) 12/18/17 22:19 Urine Urobilinogen Normal mg/dL (0.2-1.0) 12/18/17 22:19 Ur Leukocyte Esterase 3+ Arnie/uL (Negative) H 12/18/17 22:19 Urine WBC (Auto) 134 /hpf (0-5) H 12/18/17 22:19 Urine RBC (Auto) 519 /hpf (0-3) H 12/18/17 22:19 Ur Squamous Epith Cells 2 /hpf (0-5) 12/18/17 22:19 Amorphous Sediment Few /ul (<OCC) H 12/18/17 22:19 Urine Bacteria Occ (<OCC) H 12/18/17 22:19 Ur Yeast w Hyphae Occ /lpf (NEGATIVE) H 12/18/17 22:19 Attending/Attestation - Attestation I have personally seen and examined this patient.: Yes I have fully participated in the care of the patient.: Yes I have reviewed all pertinent clinical information, including history, physical exam and plan: Yes Notes (Text): Seen and examined. Stable for discharge to rehab
[2017-12-28 15:41] VITALS: BP 148/85; PULSE 75; TEMP 98.4; O2SAT 97
== END 2017-12-28 16:44 | DRG 394 ==
LOC: C.ER 18:11 → C.9E 21:23 → C.3T 22:06 → OBSVTOIN 23:24 → C.5S 12-21 14:06
PROVIDERS: ADMIT Internal Medicine; ATTEND Internal Medicine
PROC: 0D20XUZ Change Feeding Device in Upper Intestinal Tract, External Approach (ICD-10-PCS; principal; 2017-12-22 12:00)
PROC: 3E0G76Z Introduction of Nutritional Substance into Upper GI, Via Natural or Artificial Opening (ICD-10-PCS; 2017-12-23)
DX: K94.23 Gastrostomy malfunction (principal); B37.49 Other urogenital candidiasis; I50.32 Chronic diastolic (congestive) heart failure; C77.0 Secondary and unspecified malignant neoplasm of lymph nodes of head, face and neck; K94.22 Gastrostomy infection; C32.9 Malignant neoplasm of larynx, unspecified; I11.0 Hypertensive heart disease with heart failure; J44.9 Chronic obstructive pulmonary disease, unspecified; E11.9 Type 2 diabetes mellitus without complications; I25.10 Atherosclerotic heart disease of native coronary artery without angina pectoris; E03.9 Hypothyroidism, unspecified; E78.5 Hyperlipidemia, unspecified; E78.00 Pure hypercholesterolemia, unspecified; Z93.0 Tracheostomy status; Z90.49 Acquired absence of other specified parts of digestive tract; Z95.5 Presence of coronary angioplasty implant and graft; Z79.899 Other long term (current) drug therapy; Z87.891 Personal history of nicotine dependence

== ENCOUNTER 2018-01-03 07:53 | Emergency (ER) | payer MEDICARE, BC ==
[2018-01-03 07:54] VITALS: BMI 25.7
[2018-01-03] MEDS ORDERED: Albuterol-Ipratrop 3 mg / 0.5 (3 ml) UD INH STA (08:29)
[2018-01-03 08:53] LABS: SQUAMOUS EPITHIAL 2 /hpf (0-5); URINE BACTERIA FEW (<OCC); URINE BILIRUBIN NEGATIVE (NEGATIVE); URINE BLOOD 1+ (NEGATIVE); URINE CLARITY Hazy (Clear); URINE COLOR Yellow (YELLOW); URINE GLUCOSE (UA) NORMAL (Normal); URINE LEUKOCYTE ESTERASE 2+ Leu/uL (Negative); URINE PROTEIN NEGATIVE (NEGATIVE); URINE UROBILINOGEN NORMAL mg/dL (0.2-1.0)
[2018-01-03] MEDS ORDERED: Albuterol-Ipratrop 3 mg / 0.5 (3 ml) UD ONE (09:01)
[2018-01-03 09:12] LABS: BASO % 0.2 % (0.0-2.0); EOS % 0.2 % (0.0-4.0); LYMPH # 0.8 K/uL (1.0-4.3); LYMPH % 7.1 % (20.0-40.0); MEAN CELL VOLUME 85.1 fL (81.0-99.0); MEAN CORPUSCULAR HEMOGLOBIN 29.5 pg (27.0-31.0); MEAN CORPUSCULAR HGB CONC 34.7 g/dL (33.0-37.0); MEAN PLATELET VOLUME 7.5 fL (7.2-11.7); MONO # 0.9 K/uL (0.0-0.8); MONO % 8.1 % (0.0-10.0); NEUT # 8.9 K/uL (1.8-7.0); NEUT % 84.4 % (50.0-75.0); NRBC % 0.1 % (0.0-2.0); PLATELET COUNT 190 K/uL (130-400); RBC 4.54 Mil/uL (3.80-5.20); RED CELL DISTRIBUTION WIDTH 17.5 % (11.5-14.5); WHITE BLOOD COUNT 10.5 K/uL (4.8-10.8)
--- NOTE | 2018-01-03 09:17 | RAD ---
Chest x-ray single frontal view History: Shortness of breath. Comparison: 12/09/2017 Findings: Biapical pleural thickening with upper lobe granulomatous changes. Mild venous congestion. Right hilar prominence. Trace bilateral pleural effusions. Tortuous aorta with calcification at the aortic knob. Degenerative changes spine and shoulders. Tracheostomy tube in place. Impression: Biapical pleural thickening with upper lobe granulomatous changes. Mild venous congestion. Right hilar prominence. Trace bilateral pleural effusions. Tortuous aorta with calcification at the aortic knob. Degenerative changes spine and shoulders. Tracheostomy tube in place.
[2018-01-03 09:22] LABS: HEMOGLOBIN 13.4 g/dL (11.0-16.0)
[2018-01-03 09:29] LABS: ALB/GLOB RATIO 1.5 (1.0-2.1); ALBUMIN 3.8 g/dL (3.5-5.0); ALT/SGPT 47 U/L (9-52); AST/SGOT 23 U/L (14-36); BLOOD UREA NITROGEN 34 mg/dL (7-17); CALCIUM 9.2 mg/dl (8.6-10.4); GFR AFRICAN-AMERICAN > 60; GFR NON-AFRICAN AMERICAN > 60
[2018-01-03 09:39] LABS: B-TYPE NATRIURETIC PEPTIDE 756 pg/mL (0-900)
[2018-01-03 09:44] LABS: BANDS 1 % (0-2); LYMPHOCYTE 8 % (20-40); MONOCYTE 9 % (0-10); NEUTROPHIL 82 % (50-75); PLATELET ESTIMATE NORMAL (NORMAL); TOTAL CELLS COUNTED 100
[2018-01-03 09:45] LABS: ANISOCYTOSIS SLIGHT; POIKILOCYTOSIS SLIGHT
--- NOTE | 2018-01-03 10:25 | C.PDOC ---
History Of Present Illness 72 y/o male, w/PMhx of laryngeal CA, trach- vent dependent, brought to the ER by ambulance from retirement for evaluation of increasing SOB. Patient denies having CP and cough. Of note, HPI is limited because patient has trach-vent. Time Seen by Provider: 01/03/18 08:08 Chief Complaint (Nursing): Shortness Of Breath History Per: Patient History/Exam Limitations: other (trach vent) Onset/Duration Of Symptoms: Days Current Symptoms Are (Timing): Still Present Severity: Moderate Past Medical History Reviewed: Historical Data, Nursing Documentation, Vital Signs Vital Signs: Last Vital Signs Temp 98.1 F 01/03/18 11:46 Pulse 98 H 01/03/18 11:46 Resp 18 01/03/18 11:46 BP 130/81 01/03/18 11:46 Pulse Ox 98 01/03/18 11:46 - Medical History PMH: CHF, COPD, HTN, Hypercholesterolemia, Hyperlipidemia, Hypothyroidism, Malignancy (Vocal cords) Denies: Kidney Stones Surgical History: Appendectomy, Endoscopy - [facility] Procedures (10/11/17) BYPASS TRACHEA TO CUTANEOUS WITH TRACH DEV, OPEN APPROACH (11/15/17) CHANGE FEEDING DEVICE IN UP INTEST TRACT, SENIOR RESEARCH ENGINEER APPROACH (12/18/17) INSERTION OF FEEDING DEVICE INTO STOMACH, OPEN APPROACH (11/15/17) INTRODUCTION OF NUTRITIONAL INTO UP GI, VIA OPENING (12/18/17) RESPIRATORY VENTILATION, 24-96 CONSECUTIVE HOURS (12/09/17) RESPIRATORY VENTILATION, GREATER THAN 96 CONSECUTIVE HOURS (11/15/17) ULTRASONOGRAPHY OF NECK (10/11/17) Family History: States: No Known Family Hx - Social History Hx Tobacco Use: Yes Hx Alcohol Use: No Hx Substance Use: No - Immunization History Hx Tetanus Toxoid Vaccination: No Hx Influenza Vaccination: No Hx Pneumococcal Vaccination: No Review Of Systems Except As Marked, All Systems Reviewed And Found Negative. Constitutional: Negative for: Fever, Chills Respiratory: Positive for: Shortness of Breath. Negative for: Cough Physical Exam - Physical Exam Appears: Non-toxic, No Acute Distress Skin: Normal Color, Warm, Dry Head: Atraumatic, Normacephalic Eye(s): bilateral: Normal Inspection Nose: Normal Oral Mucosa: Moist Neck: Supple, Other (trach incision site is clean,dry, and intact) Chest: Symmetrical Cardiovascular: Rhythm Regular Respiratory: Decreased Breath Sounds (diminished breath sounds at bilateral bases ), No Rales, No Rhonchi, No Wheezing Gastrointestinal/Abdominal: Normal Exam, Bowel Sounds ((+) bowel sounds), Soft, No Tenderness, Other (G tube in place) Neurological/Psych: Oriented x3, Normal Speech ED Course And Treatment - Laboratory Results Result Diagrams: 01/03/18 09:07 01/03/18 09:07 ECG: Interpreted By Me, Viewed By Me ECG Rhythm: Sinus Rhythm ECG Interpretation: No Changes From Prior Interpretation Of ECG: NSR with LVH, normal intervals, poor R wave progression, and Q wave in Leads II and AVF Rate From EC O2 Sat by Pulse Oximetry: 95 (RA) Pulse Ox Interpretation: Normal - Other Rad CXR X-Ray: Viewed By Me, Read By Radiologist Interpretation: Chest x-ray single frontal view. History: Shortness of breath. Comparison: 12/09/2017. Findings: Biapical pleural thickening with upper lobe granulomatous changes. Mild venous congestion. Right hilar prominence. Trace bilateral pleural effusions. Tortuous aorta with calcification at the aortic knob. Degenerative changes spine and shoulders. Tracheostomy tube in place. Impression: Biapical pleural thickening with upper lobe granulomatous changes. Mild venous congestion. Right hilar prominence. Trace bilateral pleural effusions. Tortuous aorta with calcification at the aortic knob. Degenerative changes spine and shoulders. Tracheostomy tube in place. Medical Decision Making Medical Decision Making: Assessment: SOB Plan: --Labs --UA --ECG --CXR --Albuterol --Nebulizer Updates: Patient has undergone breathing treatment, suctioned with copious amount of mucus relieved. Rpt Saturation - 100%. Rpt Respiratory Rate: 14 pt Heart Rate - 70. Patient feels relieved with full resolution of symptoms. Patient has been diagnosed with mucus plug and congestion. Patient has been discharged back to retirement and has been advised to follow up with PMD in 2 days and return to ER if symptoms worsen. Disposition Counseled Patient/Family Regarding: Studies Performed, Diagnosis, Need For Followup - Disposition Disposition: TRANSF TO [facility] Disposition Time: 10:23 Condition: IMPROVED Additional Instructions: patient was given breathing treatment and suctioned with resolution of symptoms follow up with pmd within 2 days return to ER if symptoms worsens or progress continue medication regimen at retirement Instructions: Shortness of Breath (Dyspnea) (DC) Forms: [facility] (Yoruba), General Discharge Instructions - Clinical Impression Clinical Impression: Congestion of upper airway, Mucus plugging of bronchi - Scribe Statement The provider has reviewed the documentation as recorded by the Aminaibe Marjorie Hawkins Provider Attestation: All medical record entries made by the Aminaibe were at my direction and personally dictated by me. I have reviewed the chart and agree that the record accurately reflects my personal performance of the history, physical exam, medical decision making, and the department course for this patient. I have also personally directed, reviewed, and agree with the discharge instructions and disposition.
[2018-01-03 11:49] VITALS: BP 130/81; PULSE 98; RESP 18; TEMP 98.1
[2018-01-05 13:29] VITALS: O2SAT 95
--- NOTE | 2018-01-06 12:25 | CARD ---
APPROVED REPORT EKG Measurement Heart [id number] <Conclusion> Normal sinus rhythm Minimal voltage criteria for LVH, may be normal variant Inferior infarct, age undetermined Possible Anterior infarct, age undetermined Abnormal ECG
== END 2018-01-03 11:50 ==
LOC: C.ER 07:53
DX: J98.8 Other specified respiratory disorders (principal); J98.09 Other diseases of bronchus, not elsewhere classified; Z87.891 Personal history of nicotine dependence; I11.0 Hypertensive heart disease with heart failure; I50.9 Heart failure, unspecified; J44.9 Chronic obstructive pulmonary disease, unspecified; C32.9 Malignant neoplasm of larynx, unspecified; E78.00 Pure hypercholesterolemia, unspecified; E78.5 Hyperlipidemia, unspecified; E03.9 Hypothyroidism, unspecified; Z93.0 Tracheostomy status

== ENCOUNTER 2018-01-10 08:42 | Inpatient (IN) | payer MEDICARE, BC ==
[2018-01-10 08:57] VITALS: BMI 21.2
--- NOTE | 2018-01-10 09:14 | C.PDOC ---
History Of Present Illness 72 y/o F NHR FULL CODE c PMHx laryngeal malignancy s/p trach and gastrostomy, HTN, HLD, DM BIBEMS c respiratory distress x 2 hours. Patient found by EMS with hypoxia to SaO2 70s, improved to 91 en route with duonebs, oxygen, and terbutaline. Patient becoming more lethargic and diaphoretic. Full HPI and ROS unobtainable due to patient's acuity and clinical condition. Time Seen by Provider: 01/10/18 08:54 Chief Complaint (Nursing): Shortness Of Breath Past Medical History Vital Signs: Last Vital Signs Temp 99.2 F 01/10/18 18:13 Pulse 106 H 01/10/18 18:13 Resp 17 01/10/18 18:13 BP 112/77 01/10/18 18:13 Pulse Ox 100 01/10/18 18:13 - Medical History PMH: CHF, COPD, HTN, Hypercholesterolemia, Hyperlipidemia, Hypothyroidism, Malignancy (Vocal cords) Denies: Kidney Stones Surgical History: Appendectomy, Endoscopy - [facility] Procedures (10/11/17) BYPASS TRACHEA TO CUTANEOUS WITH TRACH DEV, OPEN APPROACH (11/15/17) CHANGE FEEDING DEVICE IN UP INTEST TRACT, TOOTH CUTTER PINION APPROACH (12/18/17) INSERTION OF FEEDING DEVICE INTO STOMACH, OPEN APPROACH (11/15/17) INTRODUCTION OF NUTRITIONAL INTO UP GI, VIA OPENING (12/18/17) RESPIRATORY VENTILATION, 24-96 CONSECUTIVE HOURS (12/09/17) RESPIRATORY VENTILATION, GREATER THAN 96 CONSECUTIVE HOURS (11/15/17) ULTRASONOGRAPHY OF NECK (10/11/17) Family History: States: Unknown Family Hx - Social History Hx Tobacco Use: Yes Hx Alcohol Use: No Hx Substance Use: No - Immunization History Hx Tetanus Toxoid Vaccination: No Hx Influenza Vaccination: No Hx Pneumococcal Vaccination: No Review Of Systems Review Of Systems: ROS cannot be obtained secondary to pt's inabilty to answer questions. Physical Exam - Physical Exam Additional Physical Exam Comments: Gen: Lethargic, elderly Head: AT Eyes: No scleral icterus ENT: MMM Neck: Supple Chest: No deformity CV: Regular rate Lungs: Wheezing and rhonchi diffusely. SaO2 on arrival 50% Abd: Soft Back: Stage II buttock ulcer Skin: As above. Diaphoretic Extremities: No asymmetrical edema Neuro: Lethargic ED Course And Treatment - Laboratory Results Result Diagrams: 01/10/18 09:11 01/10/18 09:11 O2 Sat by Pulse Oximetry: 100 Critical Care Time - Critical Care Note Total Time (in mins): 45 Comments: Patient required my immediate attention and constant presence at bedside secondary to life threatening condition, coordination of multiple services for stabilization and complex decision making given patient's comorbidities and broad differential. Documented critical care: time excludes all time spent performing seperately billable procedures. Medical Decision Making Medical Decision Making: Respiratory therapy called for ventilator to pre-existing trach, suctioning performed with removal of significant amount of sputum plugs with saturation returning to 99%. Differential includes COPD, CHF, ACS, pneumonia, PE. EKG Sinus rhythm 98 bpm, Q waves inferior, no ST elevations FINDINGS: LUNGS: No active pulmonary disease. PLEURA: Small left pleural effusion, unchanged. No evidence of right pleural effusion. No pneumothorax. CARDIOVASCULAR: Tracheostomy tube unchanged. Normal heart size. No congestive change. OSSEOUS STRUCTURES: No significant abnormalities. VISUALIZED UPPER ABDOMEN: Normal. OTHER FINDINGS: None. IMPRESSION: Small left pleural effusion. No infiltrate. Patient improved significantly after ventilator and suctioning. Dr. Suárez accepts patient to medical service. Disposition - Disposition Disposition: HOSPITALIZED Disposition Time: 12:22 Condition: FAIR - Clinical Impression Clinical Impression: COPD exacerbation, Hypoxia
[2018-01-10 09:17] LABS: BASO # 0.1 K/uL (0.0-0.2); BASO % 0.5 % (0.0-2.0); EOS % 0.2 % (0.0-4.0); HEMOGLOBIN 12.1 g/dL (11.0-16.0); LYMPH # 1.6 K/uL (1.0-4.3); LYMPH % 16.3 % (20.0-40.0); MEAN CELL VOLUME 85.8 fL (81.0-99.0); MEAN CORPUSCULAR HEMOGLOBIN 29.9 pg (27.0-31.0); MEAN CORPUSCULAR HGB CONC 34.9 g/dL (33.0-37.0); MEAN PLATELET VOLUME 7.3 fL (7.2-11.7); MONO % 9.5 % (0.0-10.0); NEUT # 7.4 K/uL (1.8-7.0); NEUT % 73.5 % (50.0-75.0); NRBC % 0.1 % (0.0-2.0); RBC 4.05 Mil/uL (3.80-5.20); RED CELL DISTRIBUTION WIDTH 17.5 % (11.5-14.5); WHITE BLOOD COUNT 10.1 K/uL (4.8-10.8)
[2018-01-10 09:18] LABS: VENOUS BLOOD GAS BASE EXCESS 5.4 mmol/L (0.0-2.0); VENOUS BLOOD GAS PCO2 124 mmHg (40-60); VENOUS BLOOD GAS PO2 29 mm/Hg (30-55); VENOUS BLOOD PH 7.11 (7.32-7.43)
--- NOTE | 2018-01-10 09:19 | RAD ---
HISTORY: hyoxia COMPARISON: 01/03/2018 FINDINGS: LUNGS: No active pulmonary disease. PLEURA: Small left pleural effusion, unchanged. No evidence of right pleural effusion. No pneumothorax. CARDIOVASCULAR: Tracheostomy tube unchanged. Normal heart size. No congestive change. OSSEOUS STRUCTURES: No significant abnormalities. VISUALIZED UPPER ABDOMEN: Normal. OTHER FINDINGS: None. IMPRESSION: Small left pleural effusion. No infiltrate.
[2018-01-10] MEDS ORDERED: MethylPREDNISolone 40 mg Vial IVP STA (09:20)
[2018-01-10 09:31] LABS: INR 1.1; PROTHROMBIN TIME 11.8 SECONDS (9.7-12.2)
[2018-01-10 09:48] LABS: B-TYPE NATRIURETIC PEPTIDE 1990 pg/mL (0-900); CK-MB 2.61 ng/mL (0.0-3.38)
[2018-01-10 09:51] LABS: ALB/GLOB RATIO 1.3 (1.0-2.1); ALBUMIN 3.9 g/dL (3.5-5.0); ALT/SGPT 45 U/L (9-52); AST/SGOT 43 U/L (14-36); BLOOD UREA NITROGEN 24 mg/dL (7-17); CALCIUM 9.2 mg/dl (8.6-10.4); GFR AFRICAN-AMERICAN > 60; GFR NON-AFRICAN AMERICAN > 60; LIPASE 23 U/L (23-300)
[2018-01-10] MEDS ORDERED: Albuterol-Ipratrop 3 mg / 0.5 (3 ml) UD ONE (09:54)
[2018-01-10] MEDS: Albuterol-Ipratrop 3 mg / 0.5 (3 ml) UD IH SCH ×5 (10:00→21:00)
[2018-01-10 10:07] LABS: ABG ALLEN TEST POS; ARTERIAL BLOOD GAS HCO3 33.3 mmol/L (21-28); ARTERIAL BLOOD GAS HEMOGLOBIN 10.3 g/dL (11.7-17.4); ARTERIAL BLOOD GAS O2 SAT 100.3 % (95-98); ARTERIAL BLOOD GAS PCO2 57 mm/Hg (35-45); ARTERIAL BLOOD GAS PH 7.42 (7.35-7.45); ARTERIAL BLOOD GAS PO2 241 mm/Hg (80-100); ARTERIAL BLOOD GAS TCO2 38.7 mmol/L (22-28)
[2018-01-10] MEDS ORDERED: Iodixanol 320 MG/ML 100 ML BOTTLE IV ONE ×2 (10:44→16:44)
[2018-01-10 10:59] LABS: SQUAMOUS EPITHIAL 2 /hpf (0-5); URINE AMORPHOUS SEDIMENT RARE /ul (<OCC); URINE BILIRUBIN NEGATIVE (NEGATIVE); URINE BLOOD NEGATIVE (NEGATIVE); URINE CLARITY Hazy (Clear); URINE COLOR Yellow (YELLOW); URINE GLUCOSE (UA) 1+ mg/dL (Normal); URINE LEUKOCYTE ESTERASE NEG Leu/uL (Negative); URINE PROTEIN NEGATIVE (NEGATIVE); URINE UROBILINOGEN NORMAL mg/dL (0.2-1.0)
[2018-01-10] MEDS ORDERED: Glucagon Recombinant 1 mg Inj IM PRN (15:40)
[2018-01-10] MEDS ORDERED: Dextrose 50% SYRINGE Inj (50 ml) IV PRN (15:40)
--- NOTE | 2018-01-10 15:51 | CP.PCM.HP ---
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 She was brought in after 02sat was found to be in the 70s. As per family at bedside patient was experiencing problems with breathing and increasing secretions one week ago for which she came to [facility] ED. At that time patient was not admitted, and given Levaquin to take as an outpatient. Since then patient's breathing has not improved. Over the weekend patient's secretions thickened with spots of bright red blood. Patient is able to shake her head and mouth responses to obtain ROS. Patient admits to shortness of breath. Patient denies fevers, chills, abdominal pain, nausea, vomiting, constipation, diarrhea, hematuria, or dysuria. After receiving a breathing treatment in the ED, patient's 02 saturation improved to the high 90s. Of note, patient has not been able to start treatment for the carcinoma due to multiple hospitalizations and infections. PMD: Dr. Meek Mcallisterm: Dr. Dumont Heme/onc: Dr. Dunlap PMH: Squamous cell laryngeal carcinoma, CHF, COPD HTN, HLD, Hypothyroidism, DM Surgical Hx: Tracheostomy (11/15/17), gastrostomy, appendectomy, endoscopy, cardiac stents (2010), partial thyroidectomy FMH: father, brother: [place] Social: hx of smoking (60 pack years), denies alcohol or drug use Present on Admission - Present on Admission Any Indicators Present on Admission: Yes History of DVT/PE: No History of Uncontrolled Diabetes: No Urinary Catheter: No Decubitus Ulcer Present: No Decubitus Ulcer Stage: II Review of Systems - Constitutional Constitutional: absent: Chills, Fever - EENT Additional comments: increased secretions through trach - Cardiovascular Cardiovascular: Dyspnea. absent: Chest Pain, Pedal Edema - Respiratory Respiratory: Cough, Dyspnea, Chest Congestion, Excessive Mucous Production - Gastrointestinal Gastrointestinal: absent: Abdominal Pain, Constipation, Diarrhea, Nausea, Vomiting - Genitourinary Genitourinary: absent: Change in Urinary Stream, Dysuria, Hematuria - Integumentary Additional comments: b/l UE ecchymosis - Hematologic/Lymphatic Hematologic: Easy Bleeding, Easy Bruising Past Patient History - Infectious Disease Hx of Infectious Diseases: None - Past Medical History & Family History Past Medical History?: Yes - Past Social History Smoking Status: Former Smoker - CARDIAC Hx Congestive Heart Failure: Yes Hx Hypercholesterolemia: Yes Hx Hypertension: Yes - PULMONARY Hx Chronic Obstructive Pulmonary Disease (COPD): Yes - NEUROLOGICAL Hx Neurological Disorder: No - HEENT Hx HEENT Problems: Yes Other/Comment: HX: RIGHT JUGULARY LYMPH NODE BX.(10/12/17). HX: VOCAL CORD POLYP - RENAL Hx Kidney Stones: No - ENDOCRINE/METABOLIC Hx Hypothyroidism: Yes - HEMATOLOGICAL/ONCOLOGICAL Hx Blood Disorders: Yes Hx Cancer: Yes (Larynx) Hx Shingles: Yes - INTEGUMENTARY Hx Dermatological Problems: No - MUSCULOSKELETAL/RHEUMATOLOGICAL Hx Musculoskeletal Disorders: No Hx Falls: No - GASTROINTESTINAL Hx Gastrointestinal Disorders: No - GENITOURINARY/GYNECOLOGICAL Hx Genitourinary Disorders: No - PSYCHIATRIC Hx Substance Use: No - SURGICAL HISTORY Hx Appendectomy: Yes - ANESTHESIA Hx Anesthesia: Yes Hx Anesthesia Reactions: No Hx Malignant Hyperthermia: No Meds Allergies/Adverse Reactions: Allergies Allergy/AdvReac Type Severity Reaction Status Date / Time No Known Allergies Allergy Verified 12/18/17 18:15 Physical Exam - Constitutional Appears: No Acute Distress, Older Than Stated Age, Chronically Ill - Head Exam Head Exam: ATRAUMATIC, NORMAL INSPECTION, NORMOCEPHALIC - Eye Exam Eye Exam: EOMI, Normal appearance - ENT Exam ENT Exam: Mucous Membranes Moist - Neck Exam Neck exam: Positive for: Full Rom - Respiratory Exam Respiratory Exam: Rales (b/l ), Respiratory Distress - Cardiovascular Exam Cardiovascular Exam: Tachycardia, RRR, +S1, +S2 - GI/Abdominal Exam GI & Abdominal Exam: Distended, Normal Bowel Sounds, Soft. absent: Tenderness - Extremities Exam Extremities exam: Positive for: full ROM, normal inspection. Negative for: pedal edema, tenderness - Back Exam Back exam: NORMAL INSPECTION - Neurological Exam Neurological exam: Alert, Oriented x3 - Psychiatric Exam Psychiatric exam: Normal Affect, Normal Mood - Skin Skin Exam: Warm Additional comments: ecchymosis on b/l UE Results - Vital Signs Recent Vital Signs: Last Vital Signs Temp 96.8 F L 06/18/18 08:45 Pulse 100 H 01/10/18 15:00 Resp 16 01/10/18 15:00 BP 99/63 L 01/10/18 15:00 Pulse Ox 100 01/10/18 15:00 - Labs Result Diagrams: 01/10/18 09:11 01/10/18 09:11 Labs: Laboratory Results - last 24 hr 01/10/18 01/10/18 01/10/18 08:46 09:11 09:11 WBC 10.1 RBC 4.05 Hgb 12.1 Hct 34.8 MCV 85.8 MCH 29.9 MCHC 34.9 RDW 17.5 H Plt Count 233 MPV 7.3 Neut % (Auto) 73.5 Lymph % (Auto) 16.3 L Williams % (Auto) 9.5 Eos % (Auto) 0.2 Baso % (Auto) 0.5 Neut # (Auto) 7.4 H Lymph # (Auto) 1.6 Williams # (Auto) 1.0 H Eos # (Auto) 0.0 Baso # (Auto) 0.1 PT 11.8 INR 1.1 APTT 23 D-Dimer, Quantitative 2761 H Puncture Site pCO2 pO2 HCO3 ABG pH ABG Total CO2 ABG O2 Saturation ABG Base Excess ABG Hemoglobin ABG Carboxyhemoglobin POC ABG HHb (Measured) ABG Methemoglobin Alejandro Test VBG pH VBG pCO2 VBG HCO3 VBG Total CO2 VBG O2 Sat (Calc) VBG Base Excess VBG Potassium A-a O2 Difference Respiratory Index Hgb O2 Saturation Glucose Lactate Vent Mode Mechanical Rate FiO2 Tidal Volume PEEP Crit Value Called To Crit Value Called By Crit Value Read Back Blood Gas Notified Time Sodium Potassium Chloride Carbon Dioxide Anion Gap BUN Creatinine Est GFR ( Amer) Est GFR (Non-Af Amer) POC Glucose (mg/dL) 272 H Random Glucose Calcium Total Bilirubin AST ALT Alkaline Phosphatase Total Creatine Kinase CK-MB (Mass) Troponin I NT-Pro-B Natriuret Pep Total Protein Albumin Globulin Albumin/Globulin Ratio Lipase Venous Blood Potassium Urine Color Urine Clarity Urine pH Ur Specific Tucker Urine Protein Urine Glucose (UA) Urine Ketones Urine Blood Urine Nitrate Urine Bilirubin Urine Urobilinogen Ur Leukocyte Esterase Urine WBC (Auto) Urine RBC (Auto) Ur Squamous Epith Cells Amorphous Sediment 01/10/18 01/10/18 01/10/18 09:11 09:12 10:04 WBC RBC Hgb Hct MCV MCH MCHC RDW Plt Count MPV Neut % (Auto) Lymph % (Auto) Williams % (Auto) Eos % (Auto) Baso % (Auto) Neut # (Auto) Lymph # (Auto) Williams # (Auto) Eos # (Auto) Baso # (Auto) PT INR APTT D-Dimer, Quantitative Puncture Site Rra pCO2 57 H pO2 29 L 241 H HCO3 33.3 H ABG pH 7.42 ABG Total CO2 38.7 H ABG O2 Saturation 100.3 H ABG Base Excess 10.8 H ABG Hemoglobin 10.3 L ABG Carboxyhemoglobin 2.6 H POC ABG HHb (Measured) -0.3 L ABG Methemoglobin 1.7 Alejandro Test Pos VBG pH 7.11 L* VBG pCO2 124 H* VBG HCO3 27.4 VBG Total CO2 43.2 H VBG O2 Sat (Calc) 46.7 VBG Base Excess 5.4 H VBG Potassium 4.0 A-a O2 Difference 401.0 Respiratory Index 1.7 Hgb O2 Saturation 96.1 Glucose 272 H Lactate 1.2 Vent Mode Prvc Mechanical Rate 16 FiO2 100.0 100.0 Tidal Volume 400 PEEP 5 5 Crit Value Called To Dr riebra Crit Value Called By Karl barboza nurse practitioner physicians assistant Crit Value Read Back Y Blood Gas Notified Time 917 Sodium 140 137.0 Potassium 4.1 Chloride 92 L 97.0 L Carbon Dioxide 40 H* Anion Gap 13 BUN 24 H Creatinine 0.4 L Est GFR ( Amer) > 60 Est GFR (Non-Af Amer) > 60 POC Glucose (mg/dL) Random Glucose 258 H Calcium 9.2 Total Bilirubin 0.8 AST 43 H D ALT 45 Alkaline Phosphatase 113 Total Creatine Kinase < 20 L CK-MB (Mass) 2.61 Troponin I 0.0170 NT-Pro-B Natriuret Pep 1990 H Total Protein 7.0 Albumin 3.9 Globulin 3.1 Albumin/Globulin Ratio 1.3 Lipase 23 Venous Blood Potassium 4.0 Urine Color Urine Clarity Urine pH Ur Specific Tucker Urine Protein Urine Glucose (UA) Urine Ketones Urine Blood Urine Nitrate Urine Bilirubin Urine Urobilinogen Ur Leukocyte Esterase Urine WBC (Auto) Urine RBC (Auto) Ur Squamous Epith Cells Amorphous Sediment 01/10/18 10:39 WBC RBC Hgb Hct MCV MCH MCHC RDW Plt Count MPV Neut % (Auto) Lymph % (Auto) Williams % (Auto) Eos % (Auto) Baso % (Auto) Neut # (Auto) Lymph # (Auto) Williams # (Auto) Eos # (Auto) Baso # (Auto) PT INR APTT D-Dimer, Quantitative Puncture Site pCO2 pO2 HCO3 ABG pH ABG Total CO2 ABG O2 Saturation ABG Base Excess ABG Hemoglobin ABG Carboxyhemoglobin POC ABG HHb (Measured) ABG Methemoglobin Alejandro Test VBG pH VBG pCO2 VBG HCO3 VBG Total CO2 VBG O2 Sat (Calc) VBG Base Excess VBG Potassium A-a O2 Difference Respiratory Index Hgb O2 Saturation Glucose Lactate Vent Mode Mechanical Rate FiO2 Tidal Volume PEEP Crit Value Called To Crit Value Called By Crit Value Read Back Blood Gas Notified Time Sodium Potassium Chloride Carbon Dioxide Anion Gap BUN Creatinine Est GFR ( Amer) Est GFR (Non-Af Amer) POC Glucose (mg/dL) Random Glucose Calcium Total Bilirubin AST ALT Alkaline Phosphatase Total Creatine Kinase CK-MB (Mass) Troponin I NT-Pro-B Natriuret Pep Total Protein Albumin Globulin Albumin/Globulin Ratio Lipase Venous Blood Potassium Urine Color Yellow Urine Clarity Hazy Urine pH 7.0 Ur Specific Tucker 1.013 Urine Protein Negative Urine Glucose (UA) 1+ Urine Ketones Negative Urine Blood Negative Urine Nitrate Negative Urine Bilirubin Negative Urine Urobilinogen Normal Ur Leukocyte Esterase Neg Urine WBC (Auto) 2 Urine RBC (Auto) 2 Ur Squamous Epith Cells 2 Amorphous Sediment Rare H Assessment & Plan - Assessment and Plan (Free Text) Assessment: Respiratory distress 2/2 hospital acquired pneumonia cxray: small L pleural effusion f/u CT chest with iv contrast Dr. Dumont consulted, help appreciated PICC line to be placed today meds: Vanco 1gm q24h Cipro 400mg q8h Cefepime 2gm q12h Solu-medrol 40mg ivp q8h Duonebs q4h Mucomyst q4h Squamous Cell Laryngeal Ca Dr. Dunlap consulted, help appreciated HTN Norvasc 2.5mg daily Coreg 3.125mg bid Hydralazine 10mg ivp q6h prn DMII Lantus 20 u sc daily ISS hypoglycemia protocol CAD s/p stents in 2010 Crestor 10mg gt hs Plavix 75mg gt daily ASA 81mg gt daily Prophylaxis Lovenox 40mg ivp daily Pepcid 40mg daily <Paul Swenson - Last Filed: 01/13/18 09:30> Results - Vital Signs Recent Vital Signs: Last Vital Signs Temp 98 F 01/13/18 04:00 Pulse 72 01/13/18 04:00 Resp 15 01/13/18 04:00 BP 149/70 01/13/18 04:00 Pulse Ox 100 01/13/18 04:00 - Labs Result Diagrams: 01/13/18 06:21 01/13/18 06:14 Labs: Laboratory Results - last 24 hr 01/12/18 01/12/18 01/12/18 11:35 16:10 21:10 WBC RBC Hgb Hct MCV MCH MCHC RDW Plt Count MPV Neut % (Auto) Lymph % (Auto) Williams % (Auto) Eos % (Auto) Baso % (Auto) Neut # (Auto) Lymph # (Auto) Williams # (Auto) Eos # (Auto) Baso # (Auto) Neutrophils % (Manual) Lymphocytes % (Manual) Monocytes % (Manual) Platelet Estimate Polychromasia Hypochromasia (manual) Anisocytosis (manual) Sodium Potassium Chloride Carbon Dioxide Anion Gap BUN Creatinine Est GFR ( Amer) Est GFR (Non-Af Amer) POC Glucose (mg/dL) 337 H 361 H 254 H Random Glucose Calcium Total Bilirubin AST ALT Alkaline Phosphatase Total Protein Albumin Globulin Albumin/Globulin Ratio 01/13/18 01/13/18 01/13/18 06:14 06:21 07:22 WBC 8.1 RBC 3.17 L Hgb 9.6 L Hct 26.6 L MCV 84.0 MCH 30.3 MCHC 36.1 RDW 17.3 H Plt Count 166 MPV 7.4 Neut % (Auto) 89.9 H Lymph % (Auto) 4.4 L Williams % (Auto) 5.6 Eos % (Auto) 0.0 Baso % (Auto) 0.1 Neut # (Auto) 7.3 H Lymph # (Auto) 0.4 L Williams # (Auto) 0.5 Eos # (Auto) 0.0 Baso # (Auto) 0.0 Neutrophils % (Manual) 94 H Lymphocytes % (Manual) 3 L Monocytes % (Manual) 3 Platelet Estimate Normal Polychromasia Slight Hypochromasia (manual) Slight Anisocytosis (manual) Slight Sodium 134 Potassium 4.0 Chloride 93 L Carbon Dioxide 34 H Anion Gap 11 BUN 26 H Creatinine 0.4 L Est GFR ( Amer) > 60 Est GFR (Non-Af Amer) > 60 POC Glucose (mg/dL) 283 H Random Glucose 206 H Calcium 7.9 L Total Bilirubin 0.6 AST 31 ALT 61 H D Alkaline Phosphatase 86 Total Protein 5.4 L Albumin 3.0 L Globulin 2.4 Albumin/Globulin Ratio 1.2 Attending/Attestation - Attestation I have personally seen and examined this patient.: Yes I have fully participated in the care of the patient.: Yes I have reviewed all pertinent clinical information: Yes Notes (Text): Acute hypoxic and hypercapnic respiratory failure.
[2018-01-10] MEDS: Acetylcysteine 20% Inhal Soln (4ml) INH SCH ×2 (16:00→21:00)
--- NOTE | 2018-01-10 16:54 | RAD ---
HISTORY: s/p picc COMPARISON: 01/10/2018 FINDINGS: LUNGS: Left basilar opacity. This may reflect pleural effusion or superimposed infiltrate. PLEURA: Small left pleural effusion. No evidence of right pleural effusion. No pneumothorax. CARDIOVASCULAR: Normal heart size. Tracheostomy. Right PICC catheter. OSSEOUS STRUCTURES: No significant abnormalities. VISUALIZED UPPER ABDOMEN: Normal. OTHER FINDINGS: None. IMPRESSION: Small left pleural effusion. Left basilar opacity may be due to pleural effusion and/or possible superimposed left basilar infiltrate.
[2018-01-10] MEDS: Cefepime 2 GM in Sodium Chloride 0.9% 100 ML IVPB SCH (18:31)
[2018-01-10] MEDS: (Lantus) Insulin Glargine, Recombinant SC SCH (18:34)
--- NOTE | 2018-01-10 19:00 | CP.PCM.CON ---
History of Present Illness - History of Present Illness History of Present Illness: reason for consultation: shortness of breath 2-year-old female with history of laryngeal carcinoma status post tracheostomy and PEG tube, COPD, hypertension, diabetes who was transferred from [facility] for shortness of breath and desaturation. Patient also found to have increasing secretions from tracheostomy tube. Patient was placed on ventilator in the emergency room PMH: Squamous cell laryngeal carcinoma, CHF, COPD HTN, HLD, Hypothyroidism, DM Surgical Hx: Tracheostomy (11/15/17), gastrostomy, appendectomy, endoscopy, cardiac stents (2010), partial thyroidectomy FMH: father, brother: KELLY Social: hx of smoking (60 pack years), denies alcohol or drug use Review of Systems - Review of Systems Systems not reviewed;Unavailable: Other (status post tracheostomy) Past Patient History - Infectious Disease Hx of Infectious Diseases: None - Past Medical History & Family History Past Medical History?: Yes - Past Social History Smoking Status: Former Smoker - CARDIAC Hx Congestive Heart Failure: Yes Hx Hypercholesterolemia: Yes Hx Hypertension: Yes - PULMONARY Hx Chronic Obstructive Pulmonary Disease (COPD): Yes - NEUROLOGICAL Hx Neurological Disorder: No - HEENT Hx HEENT Problems: Yes Other/Comment: HX: RIGHT JUGULARY LYMPH NODE BX.(10/12/17). HX: VOCAL CORD POLYP - RENAL Hx Kidney Stones: No - ENDOCRINE/METABOLIC Hx Hypothyroidism: Yes - HEMATOLOGICAL/ONCOLOGICAL Hx Blood Disorders: Yes Hx Cancer: Yes (Larynx) Hx Shingles: Yes - INTEGUMENTARY Hx Dermatological Problems: No - MUSCULOSKELETAL/RHEUMATOLOGICAL Hx Falls: No - GASTROINTESTINAL Hx Gastrointestinal Disorders: No - GENITOURINARY/GYNECOLOGICAL Hx Genitourinary Disorders: No - PSYCHIATRIC Hx Substance Use: No - SURGICAL HISTORY Hx Appendectomy: Yes - ANESTHESIA Hx Anesthesia: Yes Hx Anesthesia Reactions: No Hx Malignant Hyperthermia: No Meds Allergies/Adverse Reactions: Allergies Allergy/AdvReac Type Severity Reaction Status Date / Time No Known Allergies Allergy Verified 12/18/17 18:15 - Medications Medications: Current Medications Acetylcysteine (Acetylcysteine 20%) 4 ml INH RQ4 [facility] Albuterol/Ipratropium (Duoneb 3 Mg/0.5 Mg (3 Ml) Ud) 3 ml IH RQ4 [facility] Amlodipine Besylate (Norvasc) 2.5 mg PEG DAILY [facility] Aspirin (Aspirin Chewable) 81 mg GT DAILY [facility] Last Admin: 01/10/18 18:31 Dose: 81 mg Carvedilol (Coreg) 3.125 mg GT BID [facility] Last Admin: 01/10/18 18:31 Dose: Not Given Clopidogrel Bisulfate (Plavix) 75 mg GT DAILY [facility] Dextrose (Dextrose 50% Inj) 0 ml IV STAT PRN; Protocol PRN Reason: Hypoglycemia Protocol Dextrose (Glutose 15) 0 gm PO ONCE PRN; Protocol PRN Reason: Hypoglycemia Protocol Enoxaparin Sodium (Lovenox) 40 mg SC DAILY [facility] Famotidine (Pepcid) 40 mg GT DAILY [facility] Glucagon (Glucagen Diagnostic Kit) 0 mg IM STAT PRN; Protocol PRN Reason: Hypoglycemia Protocol Hydralazine HCl (Apresoline) 10 mg IVP Q6H PRN PRN Reason: Systolic Blood Pressure Cefepime HCl 2 gm/ Sodium (Chloride) 100 mls @ 200 mls/hr IVPB Q12H [facility] PRN Reason: Protocol Stop: 01/15/18 16:01 Last Admin: 01/10/18 18:31 Dose: 200 mls/hr Ciprofloxacin (Cipro 400mg/200ml Dsw) 400 mg in 200 mls @ 133.333 mls/hr IVPB Q8H [facility] PRN Reason: Protocol Vancomycin/Sodium Chloride (Vancomycin 1 Gm/Ns 200 Ml) 1 gm in 200 mls @ 133.333 mls/hr IVPB Q24H [facility] PRN Reason: Protocol Stop: 01/15/18 16:01 Dextrose (Dextrose 5% In Water 1000 Ml) 1,000 mls @ 0 mls/hr IV .Q0M PRN; Protocol; Per Protocol PRN Reason: Hypoglycemia Protocol Insulin Glargine (Lantus) 20 unit SC DAILY@1700 [facility] Last Admin: 18 18:34 Dose: 20 units Magnesium Hydroxide (Milk Of Magnesia) 30 ml GT DAILY [facility] Methylprednisolone (Solu-Medrol) 40 mg IVP Q8H [facility] Rosuvastatin Calcium (Crestor) 10 mg PO HS [facility] Physical Exam - Head Exam Head Exam: ATRAUMATIC, NORMOCEPHALIC - ENT Exam ENT Exam: Mucous Membranes Moist - Respiratory Exam Respiratory Exam: Rales, Rhonchi - Cardiovascular Exam Cardiovascular Exam: REGULAR RHYTHM - GI/Abdominal Exam GI & Abdominal Exam: Normal Bowel Sounds, Soft Results - Vital Signs Recent Vital Signs: Last Vital Signs Temp 99.2 F 01/10/18 18:13 Pulse 106 H 01/10/18 18:13 Resp 17 01/10/18 18:13 BP 112/77 01/10/18 18:13 Pulse Ox 100 01/10/18 18:41 - Labs Result Diagrams: 01/11/18 14:20 01/11/18 07:27 Labs: Laboratory Results - last 24 hr 01/10/18 01/10/18 01/10/18 08:46 09:11 09:11 WBC 10.1 RBC 4.05 Hgb 12.1 Hct 34.8 MCV 85.8 MCH 29.9 MCHC 34.9 RDW 17.5 H Plt Count 233 MPV 7.3 Neut % (Auto) 73.5 Lymph % (Auto) 16.3 L [place] % (Auto) 9.5 Eos % (Auto) 0.2 Baso % (Auto) 0.5 Neut # (Auto) 7.4 H Lymph # (Auto) 1.6 [place] # (Auto) 1.0 H Eos # (Auto) 0.0 Baso # (Auto) 0.1 PT 11.8 INR 1.1 APTT 23 D-Dimer, Quantitative 2761 H Puncture Site pCO2 pO2 HCO3 ABG pH ABG Total CO2 ABG O2 Saturation ABG Base Excess ABG Hemoglobin ABG Carboxyhemoglobin POC ABG HHb (Measured) ABG Methemoglobin Alejandro Test VBG pH VBG pCO2 VBG HCO3 VBG Total CO2 VBG O2 Sat (Calc) VBG Base Excess VBG Potassium A-a O2 Difference Respiratory Index Hgb O2 Saturation Glucose Lactate Vent Mode Mechanical Rate FiO2 Tidal Volume PEEP Crit Value Called To Crit Value Called By Crit Value Read Back Blood Gas Notified Time Sodium Potassium Chloride Carbon Dioxide Anion Gap BUN Creatinine Est GFR ( Amer) Est GFR (Non-Af Amer) POC Glucose (mg/dL) 272 H Random Glucose Calcium Total Bilirubin AST ALT Alkaline Phosphatase Total Creatine Kinase CK-MB (Mass) Troponin I NT-Pro-B Natriuret Pep Total Protein Albumin Globulin Albumin/Globulin Ratio Lipase Venous Blood Potassium Urine Color Urine Clarity Urine pH Ur Specific Irons Urine Protein Urine Glucose (UA) Urine Ketones Urine Blood Urine Nitrate Urine Bilirubin Urine Urobilinogen Ur Leukocyte Esterase Urine WBC (Auto) Urine RBC (Auto) Ur Squamous Epith Cells Amorphous Sediment 01/10/18 01/10/18 01/10/18 09:11 09:12 10:04 WBC RBC Hgb Hct MCV MCH MCHC RDW Plt Count MPV Neut % (Auto) Lymph % (Auto) [place] % (Auto) Eos % (Auto) Baso % (Auto) Neut # (Auto) Lymph # (Auto) [place] # (Auto) Eos # (Auto) Baso # (Auto) PT INR APTT D-Dimer, Quantitative Puncture Site Rra pCO2 57 H pO2 29 L 241 H HCO3 33.3 H ABG pH 7.42 ABG Total CO2 38.7 H ABG O2 Saturation 100.3 H ABG Base Excess 10.8 H ABG Hemoglobin 10.3 L ABG Carboxyhemoglobin 2.6 H POC ABG HHb (Measured) -0.3 L ABG Methemoglobin 1.7 Alejandro Test Pos VBG pH 7.11 L* VBG pCO2 124 H* VBG HCO3 27.4 VBG Total CO2 43.2 H VBG O2 Sat (Calc) 46.7 VBG Base Excess 5.4 H VBG Potassium 4.0 A-a O2 Difference 401.0 Respiratory Index 1.7 Hgb O2 Saturation 96.1 Glucose 272 H Lactate 1.2 Vent Mode Prvc Mechanical Rate 16 FiO2 100.0 100.0 Tidal Volume 400 PEEP 5 5 Crit Value Called To Dr ribera Crit Value Called By Karl barboza tuckpointer cleaner caulker Crit Value Read Back Y Blood Gas Notified Time 917 Sodium 140 137.0 Potassium 4.1 Chloride 92 L 97.0 L Carbon Dioxide 40 H* Anion Gap 13 BUN 24 H Creatinine 0.4 L Est GFR ( Amer) > 60 Est GFR (Non-Af Amer) > 60 POC Glucose (mg/dL) Random Glucose 258 H Calcium 9.2 Total Bilirubin 0.8 AST 43 H D ALT 45 Alkaline Phosphatase 113 Total Creatine Kinase < 20 L CK-MB (Mass) 2.61 Troponin I 0.0170 NT-Pro-B Natriuret Pep 1990 H Total Protein 7.0 Albumin 3.9 Globulin 3.1 Albumin/Globulin Ratio 1.3 Lipase 23 Venous Blood Potassium 4.0 Urine Color Urine Clarity Urine pH Ur Specific Irons Urine Protein Urine Glucose (UA) Urine Ketones Urine Blood Urine Nitrate Urine Bilirubin Urine Urobilinogen Ur Leukocyte Esterase Urine WBC (Auto) Urine RBC (Auto) Ur Squamous Epith Cells Amorphous Sediment 01/10/18 10:39 WBC RBC Hgb Hct MCV MCH MCHC RDW Plt Count MPV Neut % (Auto) Lymph % (Auto) [place] % (Auto) Eos % (Auto) Baso % (Auto) Neut # (Auto) Lymph # (Auto) [place] # (Auto) Eos # (Auto) Baso # (Auto) PT INR APTT D-Dimer, Quantitative Puncture Site pCO2 pO2 HCO3 ABG pH ABG Total CO2 ABG O2 Saturation ABG Base Excess ABG Hemoglobin ABG Carboxyhemoglobin POC ABG HHb (Measured) ABG Methemoglobin Alejandro Test VBG pH VBG pCO2 VBG HCO3 VBG Total CO2 VBG O2 Sat (Calc) VBG Base Excess VBG Potassium A-a O2 Difference Respiratory Index Hgb O2 Saturation Glucose Lactate Vent Mode Mechanical Rate FiO2 Tidal Volume PEEP Crit Value Called To Crit Value Called By Crit Value Read Back Blood Gas Notified Time Sodium Potassium Chloride Carbon Dioxide Anion Gap BUN Creatinine Est GFR ( Amer) Est GFR (Non-Af Amer) POC Glucose (mg/dL) Random Glucose Calcium Total Bilirubin AST ALT Alkaline Phosphatase Total Creatine Kinase CK-MB (Mass) Troponin I NT-Pro-B Natriuret Pep Total Protein Albumin Globulin Albumin/Globulin Ratio Lipase Venous Blood Potassium Urine Color Yellow Urine Clarity Hazy Urine pH 7.0 Ur Specific Irons 1.013 Urine Protein Negative Urine Glucose (UA) 1+ Urine Ketones Negative Urine Blood Negative Urine Nitrate Negative Urine Bilirubin Negative Urine Urobilinogen Normal Ur Leukocyte Esterase Neg Urine WBC (Auto) 2 Urine RBC (Auto) 2 Ur Squamous Epith Cells 2 Amorphous Sediment Rare H Assessment & Plan (1) Respiratory distress Status: Acute Comment: continue ventilatory support. Tracheal aspirate for cultures and senst. Continue antibiotic. Nebulizer treatment. Steroids. Feeding. Bronchoscopy if no improvement (2) COPD (chronic obstructive pulmonary disease) Status: Acute (3) Laryngeal squamous cell carcinoma Status: Acute (4) Mucus plugging of bronchi Status: Acute (5) Pneumonia Status: Acute
[2018-01-10] MEDS: Ciprofloxacin 400mg/200ml D5W 400 MG/200 ML BAG IVPB SCH (19:18)
[2018-01-10] MEDS: Vancomycin 1 gm/NS 200 ml 1 GM/200 ML BAG IVPB SCH (20:49)
--- NOTE | 2018-01-10 22:22 | CT ---
EXAM: CT Angiography Chest With Intravenous Contrast EXAM DATE/TIME: Exam ordered 01/10/2018 9:52 AM CLINICAL HISTORY: 72 years old, female; Signs and symptoms; Dyspnea and shortness of breath; Additional info: Dyspnea, hypoxia TECHNIQUE: Axial computed tomographic angiography images of the chest with intravenous contrast using pulmonary embolism protocol. All CT scans at this facility use one or more dose reduction techniques, viz.: automated exposure control; ma/kV adjustment per patient size (including targeted exams where dose is matched to indication; i.e. head); or iterative reconstruction technique. MIP reconstructed images were created and reviewed. Coronal and sagittal reformatted images were created and reviewed. CONTRAST: 100 mL of visipaque 320 administered intravenously. COMPARISON: CT - CHEST W/O CONTRAST 2017-12-09 20:55 FINDINGS: Pulmonary arteries: Unremarkable. No pulmonary embolism. Aorta: No acute findings. No thoracic aortic aneurysm. Moderately advanced atherosclerotic changes noted of the thoracic aorta. Lungs: A mucus impacted bronchus is noted in the posterior basal segment of the right lower lobe. There is atelectasis and consolidation of the left lower lobe with relative sparing of the superior segment. There is moderately advanced diffuse centrilobular type emphysema. There is scarring noted at both lung apices. There are 2 nodules in the anterior segment of the left upper lobe (series 4 image 51) that measure approximately 4 mm each. There is a suggestion of a tiny cavity within one nodule this could also be volume averaging effects. Pleural space: Unremarkable. No significant effusion. No pneumothorax. Heart: Calcification is noted within the coronary arteries bilaterally. No significant pericardial effusion. No evidence of RV dysfunction. Bones/joints: No acute fracture. No dislocation. Soft tissues: Unremarkable. Lymph nodes: Unremarkable. No enlarged lymph nodes. Kidneys: The right kidney is atrophic. Stomach: A gastrostomy tube is present within the stomach. IMPRESSION: 1. No pulmonary embolism. 2. Atelectasis and consolidation of the majority of the left lower lobe with relative sparing of the superior segment. 3. Mucus impacted bronchus noted in the right lower lobe. 4. 2 pulmonary nodules in the left upper lobe. Followup CT in 3-4 months recommended. 5. Centrilobular type emphysema seen diffusely.
[2018-01-11] MEDS: Ciprofloxacin 400mg/200ml D5W 400 MG/200 ML BAG IVPB SCH ×4 (00:22→22:30)
[2018-01-11] MEDS: Acetylcysteine 20% Inhal Soln (4ml) INH SCH ×6 (00:40→19:46)
[2018-01-11] MEDS: Albuterol-Ipratrop 3 mg / 0.5 (3 ml) UD IH SCH ×6 (00:40→19:46)
[2018-01-11] MEDS: Cefepime 2 GM in Sodium Chloride 0.9% 100 ML IVPB SCH ×2 (03:45→17:03)
[2018-01-11] MEDS: MethylPREDNISolone 40 mg Vial IVP SCH ×3 (07:02→22:45)
[2018-01-11 07:51] LABS: ALB/GLOB RATIO 1.2 (1.0-2.1); ALBUMIN 2.9 g/dL (3.5-5.0); ALT/SGPT 41 U/L (9-52); AST/SGOT 23 U/L (14-36); BLOOD UREA NITROGEN 35 mg/dL (7-17); CALCIUM 8.4 mg/dl (8.6-10.4); GFR AFRICAN-AMERICAN > 60; GFR NON-AFRICAN AMERICAN > 60
[2018-01-11 08:32] LABS: BASO % 0.1 % (0.0-2.0); LYMPH # 0.5 K/uL (1.0-4.3); LYMPH % 8.5 % (20.0-40.0); MEAN CELL VOLUME 84.2 fL (81.0-99.0); MEAN CORPUSCULAR HEMOGLOBIN 29.6 pg (27.0-31.0); MEAN CORPUSCULAR HGB CONC 35.1 g/dL (33.0-37.0); MEAN PLATELET VOLUME 7.5 fL (7.2-11.7); MONO # 0.6 K/uL (0.0-0.8); MONO % 10.4 % (0.0-10.0); PLATELET COUNT 158 K/uL (130-400); RBC 2.83 Mil/uL (3.80-5.20); RED CELL DISTRIBUTION WIDTH 17.7 % (11.5-14.5); WHITE BLOOD COUNT 6.1 K/uL (4.8-10.8)
[2018-01-11 08:33] LABS: HEMOGLOBIN 8.4 g/dL (11.0-16.0)
[2018-01-11 09:01] LABS: BANDS 1 % (0-2); BASOPHIL 1 % (0-2); LYMPHOCYTE 7 % (20-40); MONOCYTE 9 % (0-10); NEUTROPHIL 82 % (50-75); PLATELET ESTIMATE NORMAL (NORMAL); TOTAL CELLS COUNTED 100
[2018-01-11 09:02] LABS: ANISOCYTOSIS SLIGHT; HYPOCHROMIC SLIGHT; POIKILOCYTOSIS SLIGHT
[2018-01-11] MEDS ORDERED: Potassium Chloride 20 mEq/15 ml LIQ UD GT ONE (09:15)
[2018-01-11] MEDS: Enoxaparin 40 mg Syringe SC SCH (09:39)
[2018-01-11] MEDS: Magnesium Hydroxide Susp 30 ml UD GT SCH (09:40)
[2018-01-11] MEDS: (Novolin R) Insulin Human Regular 100 units/ml vial SC SCH ×3 (11:55→21:57)
[2018-01-11 14:29] LABS: BASO % 0.2 % (0.0-2.0); EOS % 0.2 % (0.0-4.0); LYMPH # 0.4 K/uL (1.0-4.3); LYMPH % 5.7 % (20.0-40.0); MEAN CELL VOLUME 84.1 fL (81.0-99.0); MEAN CORPUSCULAR HEMOGLOBIN 30.6 pg (27.0-31.0); MEAN CORPUSCULAR HGB CONC 36.4 g/dL (33.0-37.0); MEAN PLATELET VOLUME 7.6 fL (7.2-11.7); MONO # 0.4 K/uL (0.0-0.8); NEUT # 6.1 K/uL (1.8-7.0); NEUT % 87.9 % (50.0-75.0); PLATELET COUNT 158 K/uL (130-400); RBC 2.94 Mil/uL (3.80-5.20); RED CELL DISTRIBUTION WIDTH 17.7 % (11.5-14.5); WHITE BLOOD COUNT 6.9 K/uL (4.8-10.8)
[2018-01-11 14:50] LABS: ANISOCYTOSIS SLIGHT; LYMPHOCYTE 4 % (20-40); MONOCYTE 4 % (0-10); NEUTROPHIL 92 % (50-75); PLATELET ESTIMATE NORMAL (NORMAL); TOTAL CELLS COUNTED 100
[2018-01-11 14:51] LABS: HYPOCHROMIC SLIGHT; POLYCHROMIC SLIGHT
--- NOTE | 2018-01-11 16:40 | CP.PCM.PN ---
<Virginia Gan - Last Filed: 01/11/18 16:37> Subjective - Date & Time of Evaluation Date of Evaluation: 01/11/18 Time of Evaluation: 07:00 - Subjective Subjective: PGY2- Medicine Note for Dr. Swenson Patient seen and examined at bedside and in no acute distress. Patient has no complaints today and says she is feeling much better. Patient is much more awake than yesterday. Patient's family and nursing staff say she had no acute events over night. Patient denies any pain. Objective - Vital Signs/Intake and Output Vital Signs (last 24 hours): Temp Pulse Resp BP Pulse Ox 98.5 F 81 16 125/69 98 01/11/18 12:00 01/11/18 12:00 01/11/18 12:00 01/11/18 12:00 01/11/18 12:00 Intake and Output: 01/11/18 01/11/18 06:59 18:59 Intake Total 1320 Output Total 500 Balance 820 - Medications Medications: Current Medications Acetylcysteine (Acetylcysteine 20%) 4 ml INH RQ4 [facility] Last Admin: 01/11/18 11:32 Dose: 4 ml Albuterol/Ipratropium (Duoneb 3 Mg/0.5 Mg (3 Ml) Ud) 3 ml IH RQ4 [facility] Last Admin: 01/11/18 11:32 Dose: 3 ml Amlodipine Besylate (Norvasc) 2.5 mg PEG DAILY [facility] Last Admin: 01/11/18 09:40 Dose: 2.5 mg Aspirin (Aspirin Chewable) 81 mg GT DAILY [facility] Last Admin: 01/11/18 09:38 Dose: 81 mg Carvedilol (Coreg) 3.125 mg GT BID [facility] Last Admin: 01/11/18 09:39 Dose: 3.125 mg Clopidogrel Bisulfate (Plavix) 75 mg GT DAILY [facility] Last Admin: 01/11/18 09:40 Dose: 75 mg Dextrose (Dextrose 50% Inj) 0 ml IV STAT PRN; Protocol PRN Reason: Hypoglycemia Protocol Dextrose (Glutose 15) 0 gm PO ONCE PRN; Protocol PRN Reason: Hypoglycemia Protocol Enoxaparin Sodium (Lovenox) 40 mg SC DAILY [facility] Last Admin: 01/11/18 09:39 Dose: 40 mg Famotidine (Pepcid) 40 mg GT DAILY [facility] Last Admin: 01/11/18 09:48 Dose: 40 mg Glucagon (Glucagen Diagnostic Kit) 0 mg IM STAT PRN; Protocol PRN Reason: Hypoglycemia Protocol Hydralazine HCl (Apresoline) 10 mg IVP Q6H PRN PRN Reason: Systolic Blood Pressure Cefepime HCl 2 gm/ Sodium (Chloride) 100 mls @ 200 mls/hr IVPB Q12H [facility] PRN Reason: Protocol Stop: 01/15/18 16:01 Last Admin: 01/11/18 03:45 Dose: 200 mls/hr Ciprofloxacin (Cipro 400mg/200ml Dsw) 400 mg in 200 mls @ 133.333 mls/hr IVPB Q8H [facility] PRN Reason: Protocol Last Admin: 01/11/18 14:44 Dose: 133.333 mls/hr Vancomycin/Sodium Chloride (Vancomycin 1 Gm/Ns 200 Ml) 1 gm in 200 mls @ 133.333 mls/hr IVPB Q24H [facility] PRN Reason: Protocol Stop: 01/15/18 16:01 Last Admin: 01/10/18 20:49 Dose: 133.333 mls/hr Dextrose (Dextrose 5% In Water 1000 Ml) 1,000 mls @ 0 mls/hr IV .Q0M PRN; Protocol; Per Protocol PRN Reason: Hypoglycemia Protocol Insulin Glargine (Lantus) 20 unit SC DAILY@1700 [facility] Last Admin: 01/10/18 18:34 Dose: 20 units Insulin Human Regular (Novolin R) 0 unit SC ACHS [facility] PRN Reason: Protocol Last Admin: 01/11/18 11:55 Dose: 3 units Magnesium Hydroxide (Milk Of Magnesia) 30 ml GT DAILY [facility] Last Admin: 01/11/18 09:40 Dose: 30 ml Methylprednisolone (Solu-Medrol) 40 mg IVP Q8H [facility] Last Admin: 01/11/18 14:44 Dose: 40 mg Rosuvastatin Calcium (Crestor) 10 mg PO HS [facility] Last Admin: 01/10/18 22:59 Dose: 10 mg - Labs Labs: 01/11/18 14:20 01/11/18 07:27 PT 11.8 SECONDS (9.7-12.2) 01/10/18 09:11 INR 1.1 01/10/18 09:11 APTT 23 SECONDS (21-34) 01/10/18 09:11 - Additional Findings Additional findings: - Constitutional Appears: No Acute Distress, Older Than Stated Age, Chronically Ill - Head Exam Head Exam: ATRAUMATIC, NORMAL INSPECTION, NORMOCEPHALIC - Eye Exam Eye Exam: EOMI, Normal appearance - ENT Exam ENT Exam: Mucous Membranes Moist trach collar in place, attached to vent - Neck Exam Neck exam: Positive for: Full Rom - Respiratory Exam Respiratory Exam: Rales (b/l), Respiratory Distress - Cardiovascular Exam Cardiovascular Exam: Tachycardia, RRR, +S1, +S2 - GI/Abdominal Exam GI & Abdominal Exam: Distended, Normal Bowel Sounds, Soft. absent: Tenderness - Extremities Exam Extremities exam: Positive for: full ROM, normal inspection. Negative for: pedal edema, tenderness - Back Exam Back exam: NORMAL INSPECTION - Neurological Exam Neurological exam: Alert, Oriented x3 - Psychiatric Exam Psychiatric exam: Normal Affect, Normal Mood - Skin Skin Exam: Warm Additional comments: ecchymosis on b/l UE Assessment and Plan - Assessment and Plan (Free Text) Assessment: Respiratory distress 2/2 hospital acquired pneumonia cxray: small L pleural effusion Dr. Dumont consulted, help appreciated PICC line placed yesterday CTA 01/10: no PE, atelectasis and consolidation of the majority of the left lower lobe with relative sparing of the superior segment, mucus impacted bronchus noted in the right lower lobe, 2 pulmonary nodules in the left upper lobe, follow up CT in 3-4 months recommended, centrilobular type emphysema seen diffusely. f/u urine culture, trach asp, blood culture meds: Vanco 1gm q24h Cipro 400mg q8h Cefepime 2gm q12h Solu-medrol 40mg ivp q8h Duonebs q4h Mucomyst q4h Squamous Cell Laryngeal Ca Dr. Dunlap consulted, help appreciated HTN Norvasc 2.5mg daily Coreg 3.125mg bid Hydralazine 10mg ivp q6h prn DMII Lantus 20 u sc daily ISS hypoglycemia protocol CAD s/p stents in 2010 Crestor 10mg gt hs Plavix 75mg gt daily ASA 81mg gt daily Anemia HgB 8.4, repeat 9.0 continue to monitor Prophylaxis Lovenox 40mg ivp daily Pepcid 40mg daily <Messi,Paul - Last Filed: 01/13/18 09:33> Objective - Vital Signs/Intake and Output Vital Signs (last 24 hours): Temp Pulse Resp BP Pulse Ox 98 F 72 15 149/70 100 01/13/18 04:00 01/13/18 04:00 01/13/18 04:00 01/13/18 04:00 01/13/18 04:00 Intake and Output: 01/13/18 01/13/18 06:59 18:59 Intake Total 980 Output Total 500 Balance 480 - Medications Medications: Current Medications Albuterol/Ipratropium (Duoneb 3 Mg/0.5 Mg (3 Ml) Ud) 3 ml IH RQ4 [facility] Last Admin: 01/13/18 07:45 Dose: 3 ml Amlodipine Besylate (Norvasc) 2.5 mg PEG DAILY [facility] Last Admin: 01/12/18 10:39 Dose: 2.5 mg Aspirin (Aspirin Chewable) 81 mg GT DAILY [facility] Last Admin: 01/13/18 09:29 Dose: 81 mg Carvedilol (Coreg) 3.125 mg GT BID [facility] Last Admin: 01/13/18 09:30 Dose: 3.125 mg Clopidogrel Bisulfate (Plavix) 75 mg GT DAILY [facility] Last Admin: 01/13/18 09:30 Dose: 75 mg Dextrose (Dextrose 50% Inj) 0 ml IV STAT PRN; Protocol PRN Reason: Hypoglycemia Protocol Dextrose (Glutose 15) 0 gm PO ONCE PRN; Protocol PRN Reason: Hypoglycemia Protocol Enoxaparin Sodium (Lovenox) 40 mg SC DAILY [facility] Last Admin: 01/13/18 09:30 Dose: 40 mg Famotidine (Pepcid) 40 mg GT DAILY [facility] Last Admin: 01/13/18 09:30 Dose: 40 mg Glucagon (Glucagen Diagnostic Kit) 0 mg IM STAT PRN; Protocol PRN Reason: Hypoglycemia Protocol Hydralazine HCl (Apresoline) 10 mg IVP Q6H PRN PRN Reason: Systolic Blood Pressure Cefepime HCl 2 gm/ Sodium (Chloride) 100 mls @ 200 mls/hr IVPB Q12H [facility] PRN Reason: Protocol Stop: 01/15/18 16:01 Last Admin: 01/13/18 03:15 Dose: 200 mls/hr Dextrose (Dextrose 5% In Water 1000 Ml) 1,000 mls @ 0 mls/hr IV .Q0M PRN; Protocol; Per Protocol PRN Reason: Hypoglycemia Protocol Insulin Glargine (Lantus) 20 unit SC DAILY@1700 [facility] Last Admin: 01/12/18 17:13 Dose: 20 units Insulin Human Regular (Novolin R) 0 unit SC ACHS [facility] PRN Reason: Protocol Last Admin: 01/13/18 07:52 Dose: 6 unit Magnesium Hydroxide (Milk Of Magnesia) 30 ml GT DAILY [facility] Last Admin: 01/13/18 09:30 Dose: 30 ml Methylprednisolone (Solu-Medrol) 40 mg IVP Q8H [facility] Last Admin: 01/13/18 07:35 Dose: 40 mg Rosuvastatin Calcium (Crestor) 10 mg PO HS [facility] Last Admin: 01/12/18 22:04 Dose: 10 mg - Labs Labs: 01/13/18 06:21 01/13/18 06:14 PT 11.8 SECONDS (9.7-12.2) 01/10/18 09:11 INR 1.1 01/10/18 09:11 APTT 23 SECONDS (21-34) 01/10/18 09:11 Attending/Attestation - Attestation I have personally seen and examined this patient.: Yes I have fully participated in the care of the patient.: Yes I have reviewed all pertinent clinical information, including history, physical exam and plan: Yes Notes (Text): Acute Respiratory failure/distress hypoxic and hypercapnic and due to hospital acquired pneumonia Squamous Cell Laryngeal Ca
--- NOTE | 2018-01-11 16:54 | CP.PCM.CON ---
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 In regards to her cancer, she was felt to be too frail for treatment. Her daughter notes to improvement in her weight and energy level at rehab. She was standing with PT but has yet to walk. Past medical, surgical, family, social history cannot be obtained. Allergies: NKA per documentation Review of systems cannot be obtained. Past Patient History - Infectious Disease Hx of Infectious Diseases: None - Past Medical History & Family History Past Medical History?: Yes - Past Social History Smoking Status: Former Smoker - CARDIAC Hx Congestive Heart Failure: Yes Hx Hypercholesterolemia: Yes Hx Hypertension: Yes - PULMONARY Hx Chronic Obstructive Pulmonary Disease (COPD): Yes - NEUROLOGICAL Hx Neurological Disorder: No - HEENT Hx HEENT Problems: Yes Other/Comment: HX: RIGHT JUGULARY LYMPH NODE BX.(10/12/17). HX: VOCAL CORD POLYP - RENAL Hx Kidney Stones: No - ENDOCRINE/METABOLIC Hx Hypothyroidism: Yes - HEMATOLOGICAL/ONCOLOGICAL Hx Blood Disorders: Yes Hx Cancer: Yes (Larynx) Hx Shingles: Yes - INTEGUMENTARY Hx Dermatological Problems: No - MUSCULOSKELETAL/RHEUMATOLOGICAL Hx Falls: No - GASTROINTESTINAL Hx Gastrointestinal Disorders: No - GENITOURINARY/GYNECOLOGICAL Hx Genitourinary Disorders: No - PSYCHIATRIC Hx Substance Use: No - SURGICAL HISTORY Hx Appendectomy: Yes - ANESTHESIA Hx Anesthesia: Yes Hx Anesthesia Reactions: No Hx Malignant Hyperthermia: No Meds Allergies/Adverse Reactions: Allergies Allergy/AdvReac Type Severity Reaction Status Date / Time No Known Allergies Allergy Verified 12/18/17 18:15 - Medications Medications: Current Medications Acetylcysteine (Acetylcysteine 20%) 4 ml INH RQ4 [facility] Last Admin: 01/11/18 11:32 Dose: 4 ml Albuterol/Ipratropium (Duoneb 3 Mg/0.5 Mg (3 Ml) Ud) 3 ml IH RQ4 [facility] Last Admin: 01/11/18 11:32 Dose: 3 ml Amlodipine Besylate (Norvasc) 2.5 mg PEG DAILY [facility] Last Admin: 01/11/18 09:40 Dose: 2.5 mg Aspirin (Aspirin Chewable) 81 mg GT DAILY [facility] Last Admin: 01/11/18 09:38 Dose: 81 mg Carvedilol (Coreg) 3.125 mg GT BID [facility] Last Admin: 01/11/18 09:39 Dose: 3.125 mg Clopidogrel Bisulfate (Plavix) 75 mg GT DAILY [facility] Last Admin: 01/11/18 09:40 Dose: 75 mg Dextrose (Dextrose 50% Inj) 0 ml IV STAT PRN; Protocol PRN Reason: Hypoglycemia Protocol Dextrose (Glutose 15) 0 gm PO ONCE PRN; Protocol PRN Reason: Hypoglycemia Protocol Enoxaparin Sodium (Lovenox) 40 mg SC DAILY [facility] Last Admin: 01/11/18 09:39 Dose: 40 mg Famotidine (Pepcid) 40 mg GT DAILY [facility] Last Admin: 01/11/18 09:48 Dose: 40 mg Glucagon (Glucagen Diagnostic Kit) 0 mg IM STAT PRN; Protocol PRN Reason: Hypoglycemia Protocol Hydralazine HCl (Apresoline) 10 mg IVP Q6H PRN PRN Reason: Systolic Blood Pressure Cefepime HCl 2 gm/ Sodium (Chloride) 100 mls @ 200 mls/hr IVPB Q12H [facility] PRN Reason: Protocol Stop: 01/15/18 16:01 Last Admin: 01/11/18 03:45 Dose: 200 mls/hr Ciprofloxacin (Cipro 400mg/200ml Dsw) 400 mg in 200 mls @ 133.333 mls/hr IVPB Q8H [facility] PRN Reason: Protocol Last Admin: 01/11/18 14:44 Dose: 133.333 mls/hr Vancomycin/Sodium Chloride (Vancomycin 1 Gm/Ns 200 Ml) 1 gm in 200 mls @ 133.333 mls/hr IVPB Q24H [facility] PRN Reason: Protocol Stop: 01/15/18 16:01 Last Admin: 01/10/18 20:49 Dose: 133.333 mls/hr Dextrose (Dextrose 5% In Water 1000 Ml) 1,000 mls @ 0 mls/hr IV .Q0M PRN; Protocol; Per Protocol PRN Reason: Hypoglycemia Protocol Insulin Glargine (Lantus) 20 unit SC DAILY@1700 [facility] Last Admin: 01/10/18 18:34 Dose: 20 units Insulin Human Regular (Novolin R) 0 unit SC ACHS [facility] PRN Reason: Protocol Last Admin: 01/11/18 11:55 Dose: 3 units Magnesium Hydroxide (Milk Of Magnesia) 30 ml GT DAILY [facility] Last Admin: 01/11/18 09:40 Dose: 30 ml Methylprednisolone (Solu-Medrol) 40 mg IVP Q8H [facility] Last Admin: 01/11/18 14:44 Dose: 40 mg Rosuvastatin Calcium (Crestor) 10 mg PO HS [facility] Last Admin: 01/10/18 22:59 Dose: 10 mg Physical Exam - Head Exam Head Exam: ATRAUMATIC - Eye Exam Eye Exam: Normal appearance - ENT Exam ENT Exam: Mucous Membranes Dry - Respiratory Exam Respiratory Exam: NORMAL BREATHING PATTERN - Cardiovascular Exam Cardiovascular Exam: +S1, +S2 - GI/Abdominal Exam GI & Abdominal Exam: Normal Bowel Sounds Results - Vital Signs Recent Vital Signs: Last Vital Signs Temp 98.5 F 01/11/18 12:00 Pulse 81 01/11/18 12:00 Resp 16 01/11/18 12:00 BP 125/69 01/11/18 12:00 Pulse Ox 98 01/11/18 12:00 - Labs Result Diagrams: 01/11/18 14:20 01/11/18 07:27 Labs: Laboratory Results - last 24 hr 01/10/18 01/10/18 01/11/18 17:52 21:29 07:27 WBC RBC Hgb Hct MCV MCH MCHC RDW Plt Count MPV Neut % (Auto) Lymph % (Auto) [place] % (Auto) Eos % (Auto) Baso % (Auto) Neut # (Auto) Lymph # (Auto) [place] # (Auto) Eos # (Auto) Baso # (Auto) Neutrophils % (Manual) Band Neutrophils % Lymphocytes % (Manual) Monocytes % (Manual) Basophils % (Manual) Platelet Estimate Polychromasia Hypochromasia (manual) Poikilocytosis (manual Anisocytosis (manual) Sodium 133 Potassium 3.5 L Chloride 93 L Carbon Dioxide 31 H Anion Gap 12 BUN 35 H Creatinine 0.5 L Est GFR ( Amer) > 60 Est GFR (Non-Af Amer) > 60 POC Glucose (mg/dL) 192 H 171 H Random Glucose 222 H Calcium 8.4 L Phosphorus 3.1 Magnesium 2.0 Total Bilirubin 0.6 AST 23 ALT 41 Alkaline Phosphatase 62 Total Protein 5.2 L Albumin 2.9 L D Globulin 2.3 Albumin/Globulin Ratio 1.2 01/11/18 01/11/18 01/11/18 07:27 08:22 11:42 WBC 6.1 RBC 2.83 L Hgb 8.4 L D Hct 23.8 L MCV 84.2 MCH 29.6 MCHC 35.1 RDW 17.7 H Plt Count 158 MPV 7.5 Neut % (Auto) 81.0 H Lymph % (Auto) 8.5 L [place] % (Auto) 10.4 H Eos % (Auto) 0.0 Baso % (Auto) 0.1 Neut # (Auto) 5.0 Lymph # (Auto) 0.5 L [place] # (Auto) 0.6 Eos # (Auto) 0.0 Baso # (Auto) 0.0 Neutrophils % (Manual) 82 H Band Neutrophils % 1 Lymphocytes % (Manual) 7 L Monocytes % (Manual) 9 Basophils % (Manual) 1 Platelet Estimate Normal Polychromasia Hypochromasia (manual) Slight Poikilocytosis (manual Slight Anisocytosis (manual) Slight Sodium Potassium Chloride Carbon Dioxide Anion Gap BUN Creatinine Est GFR ( Amer) Est GFR (Non-Af Amer) POC Glucose (mg/dL) 245 H 258 H Random Glucose Calcium Phosphorus Magnesium Total Bilirubin AST ALT Alkaline Phosphatase Total Protein Albumin Globulin Albumin/Globulin Ratio 01/11/18 01/11/18 14:20 16:15 WBC 6.9 RBC 2.94 L Hgb 9.0 L Hct 24.7 L MCV 84.1 MCH 30.6 MCHC 36.4 RDW 17.7 H Plt Count 158 MPV 7.6 Neut % (Auto) 87.9 H Lymph % (Auto) 5.7 L [place] % (Auto) 6.0 Eos % (Auto) 0.2 Baso % (Auto) 0.2 Neut # (Auto) 6.1 Lymph # (Auto) 0.4 L [place] # (Auto) 0.4 Eos # (Auto) 0.0 Baso # (Auto) 0.0 Neutrophils % (Manual) 92 H Band Neutrophils % Lymphocytes % (Manual) 4 L Monocytes % (Manual) 4 Basophils % (Manual) Platelet Estimate Normal Polychromasia Slight Hypochromasia (manual) Slight Poikilocytosis (manual Anisocytosis (manual) Slight Sodium Potassium Chloride Carbon Dioxide Anion Gap BUN Creatinine Est GFR ( Amer) Est GFR (Non-Af Amer) POC Glucose (mg/dL) 314 H Random Glucose Calcium Phosphorus Magnesium Total Bilirubin AST ALT Alkaline Phosphatase Total Protein Albumin Globulin Albumin/Globulin Ratio Assessment & Plan (1) Anemia Assessment and Plan: likely anemia of chronic disease Status: Acute (2) Laryngeal cancer Assessment and Plan: remains debilitated and not a current treatment candidate supportive care Thank you for this interesting consult. Status: Acute
[2018-01-11] MEDS: (Lantus) Insulin Glargine, Recombinant SC SCH (17:13)
--- NOTE | 2018-01-11 17:21 | CP.PCM.PN ---
Subjective - Date & Time of Evaluation Date of Evaluation: 01/11/18 Time of Evaluation: 14:40 - Subjective Subjective: patient seen and examined on ventilatory support, In no acute distress patient is awake and responsive Afebrile Being treated for pneumonia CAT scan of the chest noted Objective - Vital Signs/Intake and Output Vital Signs (last 24 hours): Temp Pulse Resp BP Pulse Ox 98.5 F 81 16 125/69 98 01/11/18 12:00 01/11/18 12:00 01/11/18 12:00 01/11/18 12:00 01/11/18 12:00 Intake and Output: 01/11/18 01/11/18 06:59 18:59 Intake Total 1320 Output Total 500 Balance 820 - Medications Medications: Current Medications Acetylcysteine (Acetylcysteine 20%) 4 ml INH RQ4 [facility] Last Admin: 01/11/18 16:58 Dose: 4 ml Albuterol/Ipratropium (Duoneb 3 Mg/0.5 Mg (3 Ml) Ud) 3 ml IH RQ4 [facility] Last Admin: 01/11/18 16:58 Dose: 3 ml Amlodipine Besylate (Norvasc) 2.5 mg PEG DAILY [facility] Last Admin: 01/11/18 09:40 Dose: 2.5 mg Aspirin (Aspirin Chewable) 81 mg GT DAILY [facility] Last Admin: 01/11/18 09:38 Dose: 81 mg Carvedilol (Coreg) 3.125 mg GT BID [facility] Last Admin: 01/11/18 09:39 Dose: 3.125 mg Clopidogrel Bisulfate (Plavix) 75 mg GT DAILY [facility] Last Admin: 01/11/18 09:40 Dose: 75 mg Dextrose (Dextrose 50% Inj) 0 ml IV STAT PRN; Protocol PRN Reason: Hypoglycemia Protocol Dextrose (Glutose 15) 0 gm PO ONCE PRN; Protocol PRN Reason: Hypoglycemia Protocol Enoxaparin Sodium (Lovenox) 40 mg SC DAILY [facility] Last Admin: 01/11/18 09:39 Dose: 40 mg Famotidine (Pepcid) 40 mg GT DAILY [facility] Last Admin: 01/11/18 09:48 Dose: 40 mg Glucagon (Glucagen Diagnostic Kit) 0 mg IM STAT PRN; Protocol PRN Reason: Hypoglycemia Protocol Hydralazine HCl (Apresoline) 10 mg IVP Q6H PRN PRN Reason: Systolic Blood Pressure Cefepime HCl 2 gm/ Sodium (Chloride) 100 mls @ 200 mls/hr IVPB Q12H [facility] PRN Reason: Protocol Stop: 01/15/18 16:01 Last Admin: 01/11/18 17:03 Dose: 200 mls/hr Ciprofloxacin (Cipro 400mg/200ml Dsw) 400 mg in 200 mls @ 133.333 mls/hr IVPB Q8H [facility] PRN Reason: Protocol Last Admin: 01/11/18 14:44 Dose: 133.333 mls/hr Vancomycin/Sodium Chloride (Vancomycin 1 Gm/Ns 200 Ml) 1 gm in 200 mls @ 133.333 mls/hr IVPB Q24H [facility] PRN Reason: Protocol Stop: 01/15/18 16:01 Last Admin: 01/10/18 20:49 Dose: 133.333 mls/hr Dextrose (Dextrose 5% In Water 1000 Ml) 1,000 mls @ 0 mls/hr IV .Q0M PRN; Protocol; Per Protocol PRN Reason: Hypoglycemia Protocol Insulin Glargine (Lantus) 20 unit SC DAILY@1700 [facility] Last Admin: 01/10/18 18:34 Dose: 20 units Insulin Human Regular (Novolin R) 0 unit SC ACHS [facility] PRN Reason: Protocol Last Admin: 01/11/18 11:55 Dose: 3 units Magnesium Hydroxide (Milk Of Magnesia) 30 ml GT DAILY [facility] Last Admin: 01/11/18 09:40 Dose: 30 ml Methylprednisolone (Solu-Medrol) 40 mg IVP Q8H [facility] Last Admin: 01/11/18 14:44 Dose: 40 mg Rosuvastatin Calcium (Crestor) 10 mg PO HS [facility] Last Admin: 01/10/18 22:59 Dose: 10 mg - Labs Labs: 01/11/18 14:20 01/11/18 07:27 PT 11.8 SECONDS (9.7-12.2) 01/10/18 09:11 INR 1.1 01/10/18 09:11 APTT 23 SECONDS (21-34) 01/10/18 09:11 - Head Exam Head Exam: ATRAUMATIC, NORMOCEPHALIC - ENT Exam ENT Exam: Mucous Membranes Moist - Neck Exam Neck Exam: Normal Inspection - Respiratory Exam Respiratory Exam: Rales - GI/Abdominal Exam GI & Abdominal Exam: Soft, Normal Bowel Sounds - Extremities Exam Extremities Exam: Normal Inspection Assessment and Plan (1) Respiratory distress Assessment & Plan: continue antibiotic treatment for left lower lobe pneumonia continue nebulizer treatment Continue steroid Follow-up cultures and sensitivity Saturating well Status: Acute (2) COPD (chronic obstructive pulmonary disease) Status: Acute (3) Laryngeal squamous cell carcinoma Status: Acute (4) Mucus plugging of bronchi Status: Acute (5) Pneumonia Status: Acute
[2018-01-11] MEDS: Vancomycin 1 gm/NS 200 ml 1 GM/200 ML BAG IVPB SCH (17:24)
[2018-01-12] MEDS: Albuterol-Ipratrop 3 mg / 0.5 (3 ml) UD IH SCH ×6 (00:24→19:51)
[2018-01-12] MEDS: Acetylcysteine 20% Inhal Soln (4ml) INH SCH ×5 (00:24→16:44)
[2018-01-12] MEDS: Cefepime 2 GM in Sodium Chloride 0.9% 100 ML IVPB SCH ×2 (03:34→15:17)
[2018-01-12 06:12] LABS: LYMPH # 0.4 K/uL (1.0-4.3); LYMPH % 5.4 % (20.0-40.0); MEAN CELL VOLUME 84.4 fL (81.0-99.0); MEAN CORPUSCULAR HGB CONC 36.8 g/dL (33.0-37.0); MEAN PLATELET VOLUME 7.5 fL (7.2-11.7); MONO # 0.5 K/uL (0.0-0.8); MONO % 6.5 % (0.0-10.0); NEUT # 6.6 K/uL (1.8-7.0); NEUT % 88.1 % (50.0-75.0); PLATELET COUNT 168 K/uL (130-400); RBC 2.92 Mil/uL (3.80-5.20); RED CELL DISTRIBUTION WIDTH 17.8 % (11.5-14.5); WHITE BLOOD COUNT 7.5 K/uL (4.8-10.8)
[2018-01-12 06:30] LABS: ALB/GLOB RATIO 1.2 (1.0-2.1); ALT/SGPT 47 U/L (9-52); AST/SGOT 30 U/L (14-36); BLOOD UREA NITROGEN 35 mg/dL (7-17); CALCIUM 8.2 mg/dl (8.6-10.4); GFR AFRICAN-AMERICAN > 60; GFR NON-AFRICAN AMERICAN > 60
[2018-01-12] MEDS: MethylPREDNISolone 40 mg Vial IVP SCH ×3 (06:42→22:04)
[2018-01-12] MEDS: Ciprofloxacin 400mg/200ml D5W 400 MG/200 ML BAG IVPB SCH (06:42)
[2018-01-12 07:53] LABS: ANISOCYTOSIS SLIGHT; BANDS 2 % (0-2); HYPOCHROMIC SLIGHT; LYMPHOCYTE 6 % (20-40); MONOCYTE 3 % (0-10); NEUTROPHIL 89 % (50-75); PLATELET ESTIMATE NORMAL (NORMAL); POIKILOCYTOSIS SLIGHT; TOTAL CELLS COUNTED 100
[2018-01-12] MEDS: (Novolin R) Insulin Human Regular 100 units/ml vial SC SCH ×5 (08:07→22:08)
[2018-01-12] MEDS: Enoxaparin 40 mg Syringe SC SCH (10:40)
[2018-01-12] MEDS: Magnesium Hydroxide Susp 30 ml UD GT SCH (10:41)
--- NOTE | 2018-01-12 11:19 | CP.PCM.PN ---
<Virginia Gan - Last Filed: 01/12/18 13:33> Subjective - Date & Time of Evaluation Date of Evaluation: 01/12/18 Time of Evaluation: 07:00 - Subjective Subjective: PGY2- Dr. Ortiz Patient seen and examined at bedside. Patient is sitting up in chair. Patient is feeling much better. Patient feels her secretions have become thinner. Patient is hungry and would like to try eating some. Patient denies headache, chest pain, abdominal pain, nausea, vomiting, constipation, or diarrhea. Objective - Vital Signs/Intake and Output Vital Signs (last 24 hours): Temp Pulse Resp BP Pulse Ox 98.6 F 61 16 128/79 100 01/12/18 08:00 01/12/18 08:00 01/12/18 08:00 01/12/18 08:00 01/12/18 08:00 Intake and Output: 01/12/18 01/12/18 06:59 18:59 Intake Total 1040 Output Total 350 Balance 690 - Medications Medications: Current Medications Acetylcysteine (Acetylcysteine 20%) 4 ml INH RQ4 [facility] Last Admin: 01/12/18 07:20 Dose: 4 ml Albuterol/Ipratropium (Duoneb 3 Mg/0.5 Mg (3 Ml) Ud) 3 ml IH RQ4 [facility] Last Admin: 01/12/18 07:20 Dose: 3 ml Amlodipine Besylate (Norvasc) 2.5 mg PEG DAILY [facility] Last Admin: 01/12/18 10:39 Dose: 2.5 mg Aspirin (Aspirin Chewable) 81 mg GT DAILY [facility] Last Admin: 01/12/18 10:39 Dose: 81 mg Carvedilol (Coreg) 3.125 mg GT BID [facility] Last Admin: 01/12/18 10:40 Dose: 3.125 mg Clopidogrel Bisulfate (Plavix) 75 mg GT DAILY [facility] Last Admin: 01/12/18 10:40 Dose: 75 mg Dextrose (Dextrose 50% Inj) 0 ml IV STAT PRN; Protocol PRN Reason: Hypoglycemia Protocol Dextrose (Glutose 15) 0 gm PO ONCE PRN; Protocol PRN Reason: Hypoglycemia Protocol Enoxaparin Sodium (Lovenox) 40 mg SC DAILY [facility] Last Admin: 01/12/18 10:40 Dose: 40 mg Famotidine (Pepcid) 40 mg GT DAILY [facility] Last Admin: 01/12/18 10:39 Dose: 40 mg Glucagon (Glucagen Diagnostic Kit) 0 mg IM STAT PRN; Protocol PRN Reason: Hypoglycemia Protocol Hydralazine HCl (Apresoline) 10 mg IVP Q6H PRN PRN Reason: Systolic Blood Pressure Cefepime HCl 2 gm/ Sodium (Chloride) 100 mls @ 200 mls/hr IVPB Q12H [facility] PRN Reason: Protocol Stop: 01/15/18 16:01 Last Admin: 01/12/18 03:34 Dose: 200 mls/hr Ciprofloxacin (Cipro 400mg/200ml Dsw) 400 mg in 200 mls @ 133.333 mls/hr IVPB Q8H [facility] PRN Reason: Protocol Last Admin: 01/12/18 06:42 Dose: 133.333 mls/hr Vancomycin/Sodium Chloride (Vancomycin 1 Gm/Ns 200 Ml) 1 gm in 200 mls @ 133.333 mls/hr IVPB Q24H [facility] PRN Reason: Protocol Stop: 01/15/18 16:01 Last Admin: 01/11/18 17:24 Dose: 133.333 mls/hr Dextrose (Dextrose 5% In Water 1000 Ml) 1,000 mls @ 0 mls/hr IV .Q0M PRN; Protocol; Per Protocol PRN Reason: Hypoglycemia Protocol Insulin Glargine (Lantus) 20 unit SC DAILY@1700 [facility] Last Admin: 01/11/18 17:13 Dose: 20 units Insulin Human Regular (Novolin R) 0 unit SC ACHS [facility] PRN Reason: Protocol Last Admin: 01/12/18 08:07 Dose: 3 units Magnesium Hydroxide (Milk Of Magnesia) 30 ml GT DAILY [facility] Last Admin: 01/12/18 10:41 Dose: 30 ml Methylprednisolone (Solu-Medrol) 40 mg IVP Q8H [facility] Last Admin: 01/12/18 06:42 Dose: 40 mg Rosuvastatin Calcium (Crestor) 10 mg PO HS [facility] Last Admin: 01/11/18 21:28 Dose: 10 mg - Labs Labs: 01/12/18 05:56 01/12/18 05:56 PT 11.8 SECONDS (9.7-12.2) 01/10/18 09:11 INR 1.1 01/10/18 09:11 APTT 23 SECONDS (21-34) 01/10/18 09:11 - Additional Findings Additional findings: - Constitutional Appears: No Acute Distress, Older Than Stated Age, Chronically Ill - Head Exam Head Exam: ATRAUMATIC, NORMAL INSPECTION, NORMOCEPHALIC - Eye Exam Eye Exam: EOMI, Normal appearance - ENT Exam ENT Exam: Mucous Membranes Moist trach collar in place, attached to vent - Neck Exam Neck exam: Positive for: Full Rom - Respiratory Exam Respiratory Exam: Rales (b/l), Respiratory Distress - Cardiovascular Exam Cardiovascular Exam: Tachycardia, RRR, +S1, +S2 - GI/Abdominal Exam GI & Abdominal Exam: Distended, Normal Bowel Sounds, Soft. absent: Tenderness - Extremities Exam Extremities exam: Positive for: full ROM, normal inspection. Negative for: pedal edema, tenderness - Back Exam Back exam: NORMAL INSPECTION - Neurological Exam Neurological exam: Alert, Oriented x3 - Psychiatric Exam Psychiatric exam: Normal Affect, Normal Mood - Skin Skin Exam: Warm Additional comments: ecchymosis on b/l UE Assessment and Plan - Assessment and Plan (Free Text) Assessment: Respiratory distress 2/2 hospital acquired pneumonia cxray: small L pleural effusion Dr. Dumont consulted, help appreciated PICC line placed yesterday CTA 01/10: no PE, atelectasis and consolidation of the majority of the left lower lobe with relative sparing of the superior segment, mucus impacted bronchus noted in the right lower lobe, 2 pulmonary nodules in the left upper lobe, follow up CT in 3-4 months recommended, centrilobular type emphysema seen diffusely. MRSA neg, urine negative, blood culture neg for 24 hours sputum: gram neg rods meds: Vanco 1gm q24h stopped on 01/12 Cipro 400mg q8h stopped on 01/12 Cefepime 2gm q12h Solu-medrol 40mg ivp q8h Duonebs q4h Mucomyst q4h Squamous Cell Laryngeal Ca Dr. Dunlap consulted, help appreciated Patient too weak to undergo treatment at this time will need outpatient f/u with Dr. Dunlap swallow eval HTN Norvasc 2.5mg daily Coreg 3.125mg bid Hydralazine 10mg ivp q6h prn DMII Lantus 20 u sc daily ISS- increased to high dose protocol on 01/12 hypoglycemia protocol CAD s/p stents in 2010 Crestor 10mg gt hs Plavix 75mg gt daily ASA 81mg gt daily Anemia HgB 8.4, repeat 9.0 continue to monitor Prophylaxis Lovenox 40mg ivp daily Pepcid 40mg daily <Kanu Ortiz - Last Filed: 01/12/18 18:25> Objective - Vital Signs/Intake and Output Vital Signs (last 24 hours): Temp Pulse Resp BP Pulse Ox 98.5 F 99 H 17 146/82 97 01/12/18 16:00 01/12/18 16:00 01/12/18 16:00 01/12/18 16:00 01/12/18 16:00 Intake and Output: 01/12/18 01/12/18 06:59 18:59 Intake Total 1040 Output Total 350 Balance 690 - Medications Medications: Current Medications Albuterol/Ipratropium (Duoneb 3 Mg/0.5 Mg (3 Ml) Ud) 3 ml IH RQ4 [facility] Last Admin: 01/12/18 16:44 Dose: 3 ml Amlodipine Besylate (Norvasc) 2.5 mg PEG DAILY [facility] Last Admin: 01/12/18 10:39 Dose: 2.5 mg Aspirin (Aspirin Chewable) 81 mg GT DAILY [facility] Last Admin: 01/12/18 10:39 Dose: 81 mg Carvedilol (Coreg) 3.125 mg GT BID [facility] Last Admin: 01/12/18 17:13 Dose: 3.125 mg Clopidogrel Bisulfate (Plavix) 75 mg GT DAILY [facility] Last Admin: 01/12/18 10:40 Dose: 75 mg Dextrose (Dextrose 50% Inj) 0 ml IV STAT PRN; Protocol PRN Reason: Hypoglycemia Protocol Dextrose (Glutose 15) 0 gm PO ONCE PRN; Protocol PRN Reason: Hypoglycemia Protocol Enoxaparin Sodium (Lovenox) 40 mg SC DAILY [facility] Last Admin: 01/12/18 10:40 Dose: 40 mg Famotidine (Pepcid) 40 mg GT DAILY [facility] Last Admin: 01/12/18 10:39 Dose: 40 mg Glucagon (Glucagen Diagnostic Kit) 0 mg IM STAT PRN; Protocol PRN Reason: Hypoglycemia Protocol Hydralazine HCl (Apresoline) 10 mg IVP Q6H PRN PRN Reason: Systolic Blood Pressure Cefepime HCl 2 gm/ Sodium (Chloride) 100 mls @ 200 mls/hr IVPB Q12H [facility] PRN Reason: Protocol Stop: 01/15/18 16:01 Last Admin: 01/12/18 15:17 Dose: 200 mls/hr Dextrose (Dextrose 5% In Water 1000 Ml) 1,000 mls @ 0 mls/hr IV .Q0M PRN; Protocol; Per Protocol PRN Reason: Hypoglycemia Protocol Insulin Glargine (Lantus) 20 unit SC DAILY@1700 [facility] Last Admin: 01/12/18 17:13 Dose: 20 units Insulin Human Regular (Novolin R) 0 unit SC ACHS [facility] PRN Reason: Protocol Last Admin: 01/12/18 17:13 Dose: 10 unit Magnesium Hydroxide (Milk Of Magnesia) 30 ml GT DAILY [facility] Last Admin: 01/12/18 10:41 Dose: 30 ml Methylprednisolone (Solu-Medrol) 40 mg IVP Q8H [facility] Last Admin: 01/12/18 15:24 Dose: 40 mg Rosuvastatin Calcium (Crestor) 10 mg PO HS [facility] Last Admin: 01/11/18 21:28 Dose: 10 mg - Labs Labs: 01/12/18 05:56 01/12/18 05:56 PT 11.8 SECONDS (9.7-12.2) 01/10/18 09:11 INR 1.1 01/10/18 09:11 APTT 23 SECONDS (21-34) 01/10/18 09:11 Attending/Attestation - Attestation I have personally seen and examined this patient.: Yes I have fully participated in the care of the patient.: Yes I have reviewed all pertinent clinical information, including history, physical exam and plan: Yes Notes (Text): seen and examined.Denies pain and denies sob,on trach collar 50% oxygen Getting tube feeding. D/W Palliative care [employer] Melissa .She has a long discussion with to the patient and her daughter . They decided treatment and including resuscitation. They wants her to go home after rehab. patient has no fever,no leukocytosis. Doing better today.cultures negative continue IV solu medrol. We will stop cipro and vancomycin continue cefepime Monitor sugar and taper steroid CW referral for LTAC placement . d/w DR Dumont
--- NOTE | 2018-01-12 13:00 | CP.PCM.PN ---
Subjective - Date & Time of Evaluation Date of Evaluation: 01/12/18 Time of Evaluation: 11:50 - Subjective Subjective: No complaints, appears to be improving. Objective - Vital Signs/Intake and Output Vital Signs (last 24 hours): Temp Pulse Resp BP Pulse Ox 98.6 F 61 16 128/79 100 01/12/18 08:00 01/12/18 10:00 01/12/18 08:00 01/12/18 08:00 01/12/18 08:00 Intake and Output: 01/12/18 01/12/18 06:59 18:59 Intake Total 1040 Output Total 350 Balance 690 - Medications Medications: Current Medications Acetylcysteine (Acetylcysteine 20%) 4 ml INH RQ4 [facility] Last Admin: 01/12/18 11:23 Dose: 4 ml Albuterol/Ipratropium (Duoneb 3 Mg/0.5 Mg (3 Ml) Ud) 3 ml IH RQ4 [facility] Last Admin: 01/12/18 11:23 Dose: 3 ml Amlodipine Besylate (Norvasc) 2.5 mg PEG DAILY [facility] Last Admin: 01/12/18 10:39 Dose: 2.5 mg Aspirin (Aspirin Chewable) 81 mg GT DAILY [facility] Last Admin: 01/12/18 10:39 Dose: 81 mg Carvedilol (Coreg) 3.125 mg GT BID [facility] Last Admin: 01/12/18 10:40 Dose: 3.125 mg Clopidogrel Bisulfate (Plavix) 75 mg GT DAILY [facility] Last Admin: 01/12/18 10:40 Dose: 75 mg Dextrose (Dextrose 50% Inj) 0 ml IV STAT PRN; Protocol PRN Reason: Hypoglycemia Protocol Dextrose (Glutose 15) 0 gm PO ONCE PRN; Protocol PRN Reason: Hypoglycemia Protocol Enoxaparin Sodium (Lovenox) 40 mg SC DAILY [facility] Last Admin: 01/12/18 10:40 Dose: 40 mg Famotidine (Pepcid) 40 mg GT DAILY [facility] Last Admin: 01/12/18 10:39 Dose: 40 mg Glucagon (Glucagen Diagnostic Kit) 0 mg IM STAT PRN; Protocol PRN Reason: Hypoglycemia Protocol Hydralazine HCl (Apresoline) 10 mg IVP Q6H PRN PRN Reason: Systolic Blood Pressure Cefepime HCl 2 gm/ Sodium (Chloride) 100 mls @ 200 mls/hr IVPB Q12H [facility] PRN Reason: Protocol Stop: 01/15/18 16:01 Last Admin: 01/12/18 03:34 Dose: 200 mls/hr Ciprofloxacin (Cipro 400mg/200ml Dsw) 400 mg in 200 mls @ 133.333 mls/hr IVPB Q8H [facility] PRN Reason: Protocol Last Admin: 01/12/18 06:42 Dose: 133.333 mls/hr Vancomycin/Sodium Chloride (Vancomycin 1 Gm/Ns 200 Ml) 1 gm in 200 mls @ 133.333 mls/hr IVPB Q24H [facility] PRN Reason: Protocol Stop: 01/15/18 16:01 Last Admin: 01/11/18 17:24 Dose: 133.333 mls/hr Dextrose (Dextrose 5% In Water 1000 Ml) 1,000 mls @ 0 mls/hr IV .Q0M PRN; Protocol; Per Protocol PRN Reason: Hypoglycemia Protocol Insulin Glargine (Lantus) 20 unit SC DAILY@1700 [facility] Last Admin: 01/11/18 17:13 Dose: 20 units Insulin Human Regular (Novolin R) 0 unit SC ACHS [facility] PRN Reason: Protocol Last Admin: 01/12/18 08:07 Dose: 3 units Magnesium Hydroxide (Milk Of Magnesia) 30 ml GT DAILY [facility] Last Admin: 01/12/18 10:41 Dose: 30 ml Methylprednisolone (Solu-Medrol) 40 mg IVP Q8H [facility] Last Admin: 01/12/18 06:42 Dose: 40 mg Rosuvastatin Calcium (Crestor) 10 mg PO HS [facility] Last Admin: 01/11/18 21:28 Dose: 10 mg - Labs Labs: 01/12/18 05:56 01/12/18 05:56 PT 11.8 SECONDS (9.7-12.2) 01/10/18 09:11 INR 1.1 01/10/18 09:11 APTT 23 SECONDS (21-34) 01/10/18 09:11 - Head Exam Head Exam: ATRAUMATIC - Eye Exam Eye Exam: Normal appearance - ENT Exam ENT Exam: Mucous Membranes Dry - Respiratory Exam Respiratory Exam: NORMAL BREATHING PATTERN - Cardiovascular Exam Cardiovascular Exam: +S1, +S2 - GI/Abdominal Exam GI & Abdominal Exam: Normal Bowel Sounds Assessment and Plan (1) Anemia Assessment & Plan: chronic disease Status: Acute (2) Laryngeal cancer Assessment & Plan: remains debilitated, not a treatment candidate outpatient f/u Status: Acute
--- NOTE | 2018-01-12 16:27 | CP.PCM.PN ---
Subjective - Date & Time of Evaluation Date of Evaluation: 01/12/18 Time of Evaluation: 14:00 - Subjective Subjective: patient seen and examined off Ventilator and on trach collar comfortable in no respiratory distres Afebrile Tolerating feeding Continue antibiotics Objective - Vital Signs/Intake and Output Vital Signs (last 24 hours): Temp Pulse Resp BP Pulse Ox 98.5 F 99 H 17 146/82 97 01/12/18 16:00 01/12/18 16:00 01/12/18 16:00 01/12/18 16:00 01/12/18 16:00 Intake and Output: 01/12/18 01/12/18 06:59 18:59 Intake Total 1040 Output Total 350 Balance 690 - Medications Medications: Current Medications Acetylcysteine (Acetylcysteine 20%) 4 ml INH RQ4 [facility] Last Admin: 01/12/18 11:23 Dose: 4 ml Albuterol/Ipratropium (Duoneb 3 Mg/0.5 Mg (3 Ml) Ud) 3 ml IH RQ4 [facility] Last Admin: 01/12/18 11:23 Dose: 3 ml Amlodipine Besylate (Norvasc) 2.5 mg PEG DAILY [facility] Last Admin: 01/12/18 10:39 Dose: 2.5 mg Aspirin (Aspirin Chewable) 81 mg GT DAILY [facility] Last Admin: 01/12/18 10:39 Dose: 81 mg Carvedilol (Coreg) 3.125 mg GT BID [facility] Last Admin: 01/12/18 10:40 Dose: 3.125 mg Clopidogrel Bisulfate (Plavix) 75 mg GT DAILY [facility] Last Admin: 01/12/18 10:40 Dose: 75 mg Dextrose (Dextrose 50% Inj) 0 ml IV STAT PRN; Protocol PRN Reason: Hypoglycemia Protocol Dextrose (Glutose 15) 0 gm PO ONCE PRN; Protocol PRN Reason: Hypoglycemia Protocol Enoxaparin Sodium (Lovenox) 40 mg SC DAILY [facility] Last Admin: 01/12/18 10:40 Dose: 40 mg Famotidine (Pepcid) 40 mg GT DAILY [facility] Last Admin: 01/12/18 10:39 Dose: 40 mg Glucagon (Glucagen Diagnostic Kit) 0 mg IM STAT PRN; Protocol PRN Reason: Hypoglycemia Protocol Hydralazine HCl (Apresoline) 10 mg IVP Q6H PRN PRN Reason: Systolic Blood Pressure Cefepime HCl 2 gm/ Sodium (Chloride) 100 mls @ 200 mls/hr IVPB Q12H [facility] PRN Reason: Protocol Stop: 01/15/18 16:01 Last Admin: 01/12/18 15:17 Dose: 200 mls/hr Dextrose (Dextrose 5% In Water 1000 Ml) 1,000 mls @ 0 mls/hr IV .Q0M PRN; Protocol; Per Protocol PRN Reason: Hypoglycemia Protocol Insulin Glargine (Lantus) 20 unit SC DAILY@1700 [facility] Last Admin: 01/11/18 17:13 Dose: 20 units Insulin Human Regular (Novolin R) 0 unit SC ACHS [facility] PRN Reason: Protocol Last Admin: 01/12/18 15:23 Dose: 8 unit Magnesium Hydroxide (Milk Of Magnesia) 30 ml GT DAILY [facility] Last Admin: 01/12/18 10:41 Dose: 30 ml Methylprednisolone (Solu-Medrol) 40 mg IVP Q8H [facility] Last Admin: 01/12/18 15:24 Dose: 40 mg Rosuvastatin Calcium (Crestor) 10 mg PO HS [facility] Last Admin: 01/11/18 21:28 Dose: 10 mg - Labs Labs: 01/12/18 05:56 01/12/18 05:56 PT 11.8 SECONDS (9.7-12.2) 01/10/18 09:11 INR 1.1 01/10/18 09:11 APTT 23 SECONDS (21-34) 01/10/18 09:11 - Head Exam Head Exam: ATRAUMATIC, NORMOCEPHALIC - ENT Exam ENT Exam: Mucous Membranes Moist - Respiratory Exam Respiratory Exam: Decreased Breath Sounds - Cardiovascular Exam Cardiovascular Exam: REGULAR RHYTHM Assessment and Plan (1) Respiratory distress Assessment & Plan: Continue with the trach collar Continue with antibiotics Follow-up chest x-ray Status: Acute (2) COPD (chronic obstructive pulmonary disease) Status: Acute (3) Laryngeal squamous cell carcinoma Status: Acute (4) Mucus plugging of bronchi Status: Acute (5) Pneumonia Status: Acute
[2018-01-12] MEDS: (Lantus) Insulin Glargine, Recombinant SC SCH (17:13)
[2018-01-13] MEDS: Albuterol-Ipratrop 3 mg / 0.5 (3 ml) UD IH SCH ×5 (00:54→16:00)
[2018-01-13] MEDS: Cefepime 2 GM in Sodium Chloride 0.9% 100 ML IVPB SCH (03:15)
--- NOTE | 2018-01-13 05:59 | CARD ---
APPROVED REPORT EKG Measurement Heart [id number] <Conclusion> Sinus rhythm with premature atrial complexes Possible Inferior infarct, age undetermined Abnormal ECG
[2018-01-13 06:27] LABS: BASO % 0.1 % (0.0-2.0); HEMOGLOBIN 9.6 g/dL (11.0-16.0); LYMPH # 0.4 K/uL (1.0-4.3); LYMPH % 4.4 % (20.0-40.0); MEAN CORPUSCULAR HEMOGLOBIN 30.3 pg (27.0-31.0); MEAN CORPUSCULAR HGB CONC 36.1 g/dL (33.0-37.0); MEAN PLATELET VOLUME 7.4 fL (7.2-11.7); MONO # 0.5 K/uL (0.0-0.8); MONO % 5.6 % (0.0-10.0); NEUT # 7.3 K/uL (1.8-7.0); NEUT % 89.9 % (50.0-75.0); PLATELET COUNT 166 K/uL (130-400); RBC 3.17 Mil/uL (3.80-5.20); RED CELL DISTRIBUTION WIDTH 17.3 % (11.5-14.5); WHITE BLOOD COUNT 8.1 K/uL (4.8-10.8)
[2018-01-13 06:46] LABS: ALB/GLOB RATIO 1.2 (1.0-2.1); ALT/SGPT 61 U/L (9-52); AST/SGOT 31 U/L (14-36); BLOOD UREA NITROGEN 26 mg/dL (7-17); CALCIUM 7.9 mg/dl (8.6-10.4); GFR AFRICAN-AMERICAN > 60; GFR NON-AFRICAN AMERICAN > 60
[2018-01-13] MEDS: MethylPREDNISolone 40 mg Vial IVP SCH ×2 (07:35→14:14)
[2018-01-13] MEDS: (Novolin R) Insulin Human Regular 100 units/ml vial SC SCH ×3 (07:52→16:26)
[2018-01-13 09:06] LABS: LYMPHOCYTE 3 % (20-40); TOTAL CELLS COUNTED 100
[2018-01-13 09:07] LABS: ANISOCYTOSIS SLIGHT; MONOCYTE 3 % (0-10); NEUTROPHIL 94 % (50-75); PLATELET ESTIMATE NORMAL (NORMAL)
[2018-01-13 09:08] LABS: HYPOCHROMIC SLIGHT; POLYCHROMIC SLIGHT
[2018-01-13] MEDS: Enoxaparin 40 mg Syringe SC SCH (09:30)
[2018-01-13] MEDS: Magnesium Hydroxide Susp 30 ml UD GT SCH (09:30)
--- NOTE | 2018-01-13 10:31 | CP.PCM.CON ---
History of Present Illness - History of Present Illness History of Present Illness: palliative consult requested by Doctor Farrell for goals of care discussion Patient is a 72 yo female admitted from [place] with respiratory distress X [address] chest was negative CO but sugested mucus plug obstructing the bronchi. Patient was placed on ventilator in ED and transferred to ICU where she is treated for pneumonia. Patient's daughter called me requesting meeting for Code status discussion. This was related to Medical team. PMH: laringeal CA, S/P Trach and PEG, HTN, DM Soc. 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 Hx: denied Review of Systems - Constitutional Constitutional: absent: As Per HPI, Anorexia, Chills, Daytime Sleepiness, Excessive Sweating, Fatigue, Fever, Frequent Falls, Headache, Increased Appetite , Lethargy, Malaise, Night Sweats, Snoring, Sleep Apnea, Weight Gain, Weight Loss, Weakness, Other - EENT Eyes: absent: As Per HPI, Blind Spots, Blurred Vision, Change in Vision, Decreased Night Vision, Diplopia, Discharge, Dry Eye, Exophthalmos, Floaters, Irritation, Itchy Eyes, Loss of Peripheral Vision, Pain, Photophobia, Requires Corrective Lenses, Sees Flashes, Spots in Vision, Tunnel Vision, Other Visual Disturbances, Loss of Vision, Other Ears: absent: As Per HPI, Decreased Hearing, Ear Discharge, Ear Pain, Tinnitus, Abnormal Hearing, Disequilibrium, Dizziness, Other Additional comments: Mucus production via trach, excessive - Breasts Breasts: absent: As Per HPI, Change in Shape, Mass, Pain, Nipple Discharge, Nipple Inversion, Skin Changes, Swelling, Other - Cardiovascular Cardiovascular: Dyspnea - Respiratory Respiratory: Dyspnea on Exertion - Gastrointestinal Additional comments: PEG - Genitourinary Genitourinary: absent: As Per HPI, Change in Urinary Stream, Difficulty Urinating, Dysuria, Flank Pain, Hematuria, Pyuria, Nocturia, Urinary Incontinence, Urinary Frequency, Urinary Hesitance, Urinary Urgency, Voiding Freq/Small Amts, Freq UTI, Hx Renal/Bladder Calculi, Hx /Renal Surgery, Bladder Distension, Other - Reproductive: Female Reproductive:Female: Post Menopausal - Menstruation Menstruation: Post Menopausal - Musculoskeletal Musculoskeletal: Muscle Weakness - Integumentary Integumentary: absent: As Per HPI, Acne, Alopecia, Bleeding Lesions, Change in Hair, Change in Nails, Change in Pigmentation, Changing Lesions, Dry Skin, Erythema, Furuncle, Hirsutism, Lesions, New Lesions, Non-Healing Lesions, Photosensitivity, Pruritus, Rash, Skin Pain, Skin Ulcer, Sores, Striae, Swelling , Unusual Bruising, Wounds, Jaundice, Other - Neurological Neurological: absent: As Per HPI, Abnormal Gait, Abnormal Hearing, Abnormal Movements, Abnormal Speech, Behavioral Changes, Burning Sensations, Confusion, Convulsions, Disequilibrium, Dizziness, Numbness, Focal Weakness, Frequent Falls , Headaches, Lack of Coordination, Loss of Vision, Memory Loss, Paresthesias, Radicular Pain, Restless Legs, Sensory Deficit, Syncope, Tingling, Tremor, Vertigo, Weakness, Other Visual Disturbances, Other - Psychiatric Psychiatric: absent: As Per HPI, Abnormal Sleep Pattern, Anhedonia, Anxiety, Auditory Hallucinations, Behavioral Changes, Change in Appetite, Change in Libido, Confusion, Depression, Difficulty Concentrating, Hallucinations, Homicidal Ideation, Hopelessness, Irritability, Memory Loss, Mood Swings, Panic Attacks, Paranoia, Suicidal Ideation, Visual Hallucinations, Tactile Hallucinations, Other - Endocrine Endocrine: absent: As Per HPI, Change in Body Appearance, Change in Libido, Cold Intolorance, Deepening of Voice, Excessive Sweating, Fatigue, Flushing, Heat Intolorance, Increase in Ring/Shoe/Hat Size, Palpitations, Polydipsia, Polyphagia, Polyuria, Other - Hematologic/Lymphatic Hematologic: absent: As Per HPI, Easy Bleeding, Easy Bruising, Lymphadenopathy, Other Past Patient History - Infectious Disease Hx of Infectious Diseases: None - Past Medical History & Family History Past Medical History?: Yes - Past Social History Smoking Status: Former Smoker - CARDIAC Hx Congestive Heart Failure: Yes Hx Hypercholesterolemia: Yes Hx Hypertension: Yes - PULMONARY Hx Chronic Obstructive Pulmonary Disease (COPD): Yes - NEUROLOGICAL Hx Neurological Disorder: No - HEENT Hx HEENT Problems: Yes Other/Comment: HX: RIGHT JUGULARY LYMPH NODE BX.(10/12/17). HX: VOCAL CORD POLYP - RENAL Hx Kidney Stones: No - ENDOCRINE/METABOLIC Hx Hypothyroidism: Yes - HEMATOLOGICAL/ONCOLOGICAL Hx Blood Disorders: Yes Hx Cancer: Yes (Larynx) Hx Shingles: Yes - INTEGUMENTARY Hx Dermatological Problems: No - MUSCULOSKELETAL/RHEUMATOLOGICAL Hx Falls: No - GASTROINTESTINAL Hx Gastrointestinal Disorders: No - GENITOURINARY/GYNECOLOGICAL Hx Genitourinary Disorders: No - PSYCHIATRIC Hx Substance Use: No - SURGICAL HISTORY Hx Appendectomy: Yes - ANESTHESIA Hx Anesthesia: Yes Hx Anesthesia Reactions: No Hx Malignant Hyperthermia: No Meds Allergies/Adverse Reactions: Allergies Allergy/AdvReac Type Severity Reaction Status Date / Time No Known Allergies Allergy Verified 12/18/17 18:15 - Medications Medications: Current Medications Albuterol/Ipratropium (Duoneb 3 Mg/0.5 Mg (3 Ml) Ud) 3 ml IH RQ4 [facility] Last Admin: 01/13/18 07:45 Dose: 3 ml Amlodipine Besylate (Norvasc) 2.5 mg PEG DAILY [facility] Last Admin: 01/13/18 09:33 Dose: 2.5 mg Aspirin (Aspirin Chewable) 81 mg GT DAILY [facility] Last Admin: 01/13/18 09:29 Dose: 81 mg Carvedilol (Coreg) 3.125 mg GT BID [facility] Last Admin: 01/13/18 09:30 Dose: 3.125 mg Clopidogrel Bisulfate (Plavix) 75 mg GT DAILY [facility] Last Admin: 01/13/18 09:30 Dose: 75 mg Dextrose (Dextrose 50% Inj) 0 ml IV STAT PRN; Protocol PRN Reason: Hypoglycemia Protocol Dextrose (Glutose 15) 0 gm PO ONCE PRN; Protocol PRN Reason: Hypoglycemia Protocol Enoxaparin Sodium (Lovenox) 40 mg SC DAILY [facility] Last Admin: 01/13/18 09:30 Dose: 40 mg Famotidine (Pepcid) 40 mg GT DAILY [facility] Last Admin: 01/13/18 09:30 Dose: 40 mg Glucagon (Glucagen Diagnostic Kit) 0 mg IM STAT PRN; Protocol PRN Reason: Hypoglycemia Protocol Hydralazine HCl (Apresoline) 10 mg IVP Q6H PRN PRN Reason: Systolic Blood Pressure Dextrose (Dextrose 5% In Water 1000 Ml) 1,000 mls @ 0 mls/hr IV .Q0M PRN; Protocol; Per Protocol PRN Reason: Hypoglycemia Protocol Piperacillin Sod/Tazobactam Sod (Zosyn 4.5 Gm Iv Premix) 4.5 gm in 100 mls @ 200 mls/hr IVPB Q6H [facility] PRN Reason: Protocol Insulin Glargine (Lantus) 20 unit SC DAILY@1700 [facility] Last Admin: 01/12/18 17:13 Dose: 20 units Insulin Human Regular (Novolin R) 0 unit SC ACHS [facility] PRN Reason: Protocol Last Admin: 01/13/18 07:52 Dose: 6 unit Magnesium Hydroxide (Milk Of Magnesia) 30 ml GT DAILY [facility] Last Admin: 01/13/18 09:30 Dose: 30 ml Methylprednisolone (Solu-Medrol) 40 mg IVP Q8H [facility] Last Admin: 01/13/18 07:35 Dose: 40 mg Rosuvastatin Calcium (Crestor) 10 mg PO HS [facility] Last Admin: 01/12/18 22:04 Dose: 10 mg Physical Exam - Constitutional Appears: Chronically Ill - Head Exam Head Exam: ATRAUMATIC, NORMAL INSPECTION, NORMOCEPHALIC - Eye Exam Eye Exam: EOMI, Normal appearance, PERRL Pupil Exam: NORMAL ACCOMODATION, PERRL - ENT Exam Additional comments: Excessive mucus production via Trach - Neck Exam Additional comments: Trach - Respiratory Exam Respiratory Exam: Decreased Breath Sounds - Cardiovascular Exam Cardiovascular Exam: REGULAR RHYTHM - GI/Abdominal Exam GI & Abdominal Exam: Normal Bowel Sounds Additional comments: PEG - Rectal Exam Rectal Exam: Deferred - Extremities Exam Extremities exam: Positive for: normal inspection - Back Exam Back exam: NORMAL INSPECTION - Neurological Exam Neurological exam: Alert, Oriented x3 - Psychiatric Exam Psychiatric exam: Normal Affect, Normal Mood - Skin Skin Exam: Normal Color, Warm Results - Vital Signs Recent Vital Signs: Last Vital Signs Temp 98.2 F 01/13/18 08:00 Pulse 69 01/13/18 08:00 Resp 16 01/13/18 08:00 BP 134/63 01/13/18 08:00 Pulse Ox 100 01/13/18 08:00 - Labs Result Diagrams: 01/13/18 06:21 01/13/18 06:14 Labs: Laboratory Results - last 24 hr 01/12/18 01/12/18 01/12/18 11:35 16:10 21:10 WBC RBC Hgb Hct MCV MCH MCHC RDW Plt Count MPV Neut % (Auto) Lymph % (Auto) Bond % (Auto) Eos % (Auto) Baso % (Auto) Neut # (Auto) Lymph # (Auto) Bond # (Auto) Eos # (Auto) Baso # (Auto) Neutrophils % (Manual) Lymphocytes % (Manual) Monocytes % (Manual) Platelet Estimate Polychromasia Hypochromasia (manual) Anisocytosis (manual) Sodium Potassium Chloride Carbon Dioxide Anion Gap BUN Creatinine Est GFR ( Amer) Est GFR (Non-Af Amer) POC Glucose (mg/dL) 337 H 361 H 254 H Random Glucose Calcium Total Bilirubin AST ALT Alkaline Phosphatase Total Protein Albumin Globulin Albumin/Globulin Ratio 01/13/18 01/13/18 01/13/18 06:14 06:21 07:22 WBC 8.1 RBC 3.17 L Hgb 9.6 L Hct 26.6 L MCV 84.0 MCH 30.3 MCHC 36.1 RDW 17.3 H Plt Count 166 MPV 7.4 Neut % (Auto) 89.9 H Lymph % (Auto) 4.4 L Bond % (Auto) 5.6 Eos % (Auto) 0.0 Baso % (Auto) 0.1 Neut # (Auto) 7.3 H Lymph # (Auto) 0.4 L Bond # (Auto) 0.5 Eos # (Auto) 0.0 Baso # (Auto) 0.0 Neutrophils % (Manual) 94 H Lymphocytes % (Manual) 3 L Monocytes % (Manual) 3 Platelet Estimate Normal Polychromasia Slight Hypochromasia (manual) Slight Anisocytosis (manual) Slight Sodium 134 Potassium 4.0 Chloride 93 L Carbon Dioxide 34 H Anion Gap 11 BUN 26 H Creatinine 0.4 L Est GFR ( Amer) > 60 Est GFR (Non-Af Amer) > 60 POC Glucose (mg/dL) 283 H Random Glucose 206 H Calcium 7.9 L Total Bilirubin 0.6 AST 31 ALT 61 H D Alkaline Phosphatase 86 Total Protein 5.4 L Albumin 3.0 L Globulin 2.4 Albumin/Globulin Ratio 1.2 Assessment & Plan - Assessment and Plan (Free Text) Assessment: Patient was seen and examined yesterday in the afternoon Full Code, there is no Advance Directive on chart, PPS 20% I reviewed medical records, all diagnostic studies, examined patient in the bed. Patient is alert, oriented X 3, in no acute distress, in good spirit. Daughter at bed side. Patient is unable to talk due to trach but mouths her words and able to participate in conversation. But reports breathing much easier.She is still having a lot of sputum and is suctioned regularly. O2Sat 100%. PEG in place, functioning well. Patient tries to reposition her self in the bed and is doing active ROM. Patient is able to move all of her extremities. Daughter at bed side hopes, her mother will be able to walk again. The most patient had done so far , was sitting at the edge of the bed. Goals of care discussed. Daughter was advocating for the patient and patient was nodding her head in agreement. Daughter wants her mother ultimately to return home. She does not feel that patient is not yet ready to go home. At the same time, daughter doesn not want her mother to return to [place] as she feels her mother is not getting needed Medical care there. I offered more informaion on LTAC what seemed to be what patient and daughter were looking for. The daughter at [facility] was not happy with location of LTAC, too far from her home. Also, her niece and nephew do not drive and she would want them to be able to visit often. I informed them that [facility] offers [employer] services for family memebers what made patient and daughter happy. Code status discussed as daughter initially requested. FAB introduced and detailed information on DNR/DNI status given. Patient said that when she was in ED feeling sick, she wanted DNR/DNI, but now she changed her mind. I further elaborated on DNR/DNI and reassured patient that it did not mean cesation of treatment but she remained with decision on Full Code. 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
[2018-01-13] MEDS: Piperacill/Tazo 4.5gm in Dex 4.5 GM/100 ML BAG IVPB SCH ×2 (10:53→15:13)
--- NOTE | 2018-01-13 15:02 | CP.PCM.CON ---
History of Present Illness - History of Present Illness History of Present Illness: dictated Past Patient History - Infectious Disease Hx of Infectious Diseases: None - Past Medical History & Family History Past Medical History?: Yes - Past Social History Smoking Status: Former Smoker - CARDIAC Hx Congestive Heart Failure: Yes Hx Hypercholesterolemia: Yes Hx Hypertension: Yes - PULMONARY Hx Chronic Obstructive Pulmonary Disease (COPD): Yes - NEUROLOGICAL Hx Neurological Disorder: No - HEENT Hx HEENT Problems: Yes Other/Comment: HX: RIGHT JUGULARY LYMPH NODE BX.(10/12/17). HX: VOCAL CORD POLYP - RENAL Hx Kidney Stones: No - ENDOCRINE/METABOLIC Hx Hypothyroidism: Yes - HEMATOLOGICAL/ONCOLOGICAL Hx Blood Disorders: Yes Hx Cancer: Yes (Larynx) Hx Shingles: Yes - INTEGUMENTARY Hx Dermatological Problems: No - MUSCULOSKELETAL/RHEUMATOLOGICAL Hx Falls: No - GASTROINTESTINAL Hx Gastrointestinal Disorders: No - GENITOURINARY/GYNECOLOGICAL Hx Genitourinary Disorders: No - PSYCHIATRIC Hx Substance Use: No - SURGICAL HISTORY Hx Appendectomy: Yes - ANESTHESIA Hx Anesthesia: Yes Hx Anesthesia Reactions: No Hx Malignant Hyperthermia: No Meds Allergies/Adverse Reactions: Allergies Allergy/AdvReac Type Severity Reaction Status Date / Time No Known Allergies Allergy Verified 12/18/17 18:15 - Medications Medications: Current Medications Albuterol/Ipratropium (Duoneb 3 Mg/0.5 Mg (3 Ml) Ud) 3 ml IH RQ4 [facility] Last Admin: 01/13/18 11:30 Dose: 3 ml Amlodipine Besylate (Norvasc) 2.5 mg PEG DAILY [facility] Last Admin: 01/13/18 09:33 Dose: 2.5 mg Aspirin (Aspirin Chewable) 81 mg GT DAILY [facility] Last Admin: 01/13/18 09:29 Dose: 81 mg Carvedilol (Coreg) 3.125 mg GT BID [facility] Last Admin: 01/13/18 09:30 Dose: 3.125 mg Clopidogrel Bisulfate (Plavix) 75 mg GT DAILY [facility] Last Admin: 01/13/18 09:30 Dose: 75 mg Dextrose (Dextrose 50% Inj) 0 ml IV STAT PRN; Protocol PRN Reason: Hypoglycemia Protocol Dextrose (Glutose 15) 0 gm PO ONCE PRN; Protocol PRN Reason: Hypoglycemia Protocol Enoxaparin Sodium (Lovenox) 40 mg SC DAILY [facility] Last Admin: 01/13/18 09:30 Dose: 40 mg Famotidine (Pepcid) 40 mg GT DAILY [facility] Last Admin: 01/13/18 09:30 Dose: 40 mg Glucagon (Glucagen Diagnostic Kit) 0 mg IM STAT PRN; Protocol PRN Reason: Hypoglycemia Protocol Hydralazine HCl (Apresoline) 10 mg IVP Q6H PRN PRN Reason: Systolic Blood Pressure Dextrose (Dextrose 5% In Water 1000 Ml) 1,000 mls @ 0 mls/hr IV .Q0M PRN; Protocol; Per Protocol PRN Reason: Hypoglycemia Protocol Piperacillin Sod/Tazobactam Sod (Zosyn 4.5 Gm Iv Premix) 4.5 gm in 100 mls @ 200 mls/hr IVPB Q6H [facility] PRN Reason: Protocol Last Admin: 01/13/18 10:53 Dose: 200 mls/hr Insulin Glargine (Lantus) 20 unit SC DAILY@1700 [facility] Last Admin: 01/12/18 17:13 Dose: 20 units Insulin Human Regular (Novolin R) 0 unit SC ACHS [facility] PRN Reason: Protocol Last Admin: 01/13/18 11:46 Dose: 6 unit Magnesium Hydroxide (Milk Of Magnesia) 30 ml GT DAILY [facility] Last Admin: 01/13/18 09:30 Dose: 30 ml Methylprednisolone (Solu-Medrol) 40 mg IVP Q8H [facility] Last Admin: 01/13/18 14:14 Dose: 40 mg Rosuvastatin Calcium (Crestor) 10 mg PO HS [facility] Last Admin: 01/12/18 22:04 Dose: 10 mg Results - Vital Signs Recent Vital Signs: Last Vital Signs Temp 98.2 F 01/13/18 08:00 Pulse 79 01/13/18 10:00 Resp 16 01/13/18 08:00 BP 134/63 01/13/18 08:00 Pulse Ox 100 01/13/18 08:00 - Labs Result Diagrams: 01/13/18 06:21 01/13/18 06:14 Labs: Laboratory Results - last 24 hr 01/12/18 01/12/18 01/13/18 16:10 21:10 06:14 WBC RBC Hgb Hct MCV MCH MCHC RDW Plt Count MPV Neut % (Auto) Lymph % (Auto) [place] % (Auto) Eos % (Auto) Baso % (Auto) Neut # (Auto) Lymph # (Auto) [place] # (Auto) Eos # (Auto) Baso # (Auto) Neutrophils % (Manual) Lymphocytes % (Manual) Monocytes % (Manual) Platelet Estimate Polychromasia Hypochromasia (manual) Anisocytosis (manual) Sodium 134 Potassium 4.0 Chloride 93 L Carbon Dioxide 34 H Anion Gap 11 BUN 26 H Creatinine 0.4 L Est GFR ( Amer) > 60 Est GFR (Non-Af Amer) > 60 POC Glucose (mg/dL) 361 H 254 H Random Glucose 206 H Calcium 7.9 L Total Bilirubin 0.6 AST 31 ALT 61 H D Alkaline Phosphatase 86 Total Protein 5.4 L Albumin 3.0 L Globulin 2.4 Albumin/Globulin Ratio 1.2 01/13/18 01/13/18 01/13/18 06:21 07:22 11:07 WBC 8.1 RBC 3.17 L Hgb 9.6 L Hct 26.6 L MCV 84.0 MCH 30.3 MCHC 36.1 RDW 17.3 H Plt Count 166 MPV 7.4 Neut % (Auto) 89.9 H Lymph % (Auto) 4.4 L [place] % (Auto) 5.6 Eos % (Auto) 0.0 Baso % (Auto) 0.1 Neut # (Auto) 7.3 H Lymph # (Auto) 0.4 L [place] # (Auto) 0.5 Eos # (Auto) 0.0 Baso # (Auto) 0.0 Neutrophils % (Manual) 94 H Lymphocytes % (Manual) 3 L Monocytes % (Manual) 3 Platelet Estimate Normal Polychromasia Slight Hypochromasia (manual) Slight Anisocytosis (manual) Slight Sodium Potassium Chloride Carbon Dioxide Anion Gap BUN Creatinine Est GFR ( Amer) Est GFR (Non-Af Amer) POC Glucose (mg/dL) 283 H 276 H Random Glucose Calcium Total Bilirubin AST ALT Alkaline Phosphatase Total Protein Albumin Globulin Albumin/Globulin Ratio
[2018-01-13 15:11] VITALS: RESP 20
--- NOTE | 2018-01-13 15:15 | CP.PCM.PN ---
Subjective - Date & Time of Evaluation Date of Evaluation: 01/13/18 Time of Evaluation: 14:00 - Subjective Subjective: Appears comfortable, family at bedside. Objective - Vital Signs/Intake and Output Vital Signs (last 24 hours): Temp Pulse Resp BP Pulse Ox 98.3 F 83 20 118/82 100 01/13/18 12:00 01/13/18 12:00 01/13/18 12:00 01/13/18 12:00 01/13/18 12:00 Intake and Output: 01/13/18 01/13/18 06:59 18:59 Intake Total 980 Output Total 500 Balance 480 - Medications Medications: Current Medications Albuterol/Ipratropium (Duoneb 3 Mg/0.5 Mg (3 Ml) Ud) 3 ml IH RQ4 [facility] Last Admin: 01/13/18 11:30 Dose: 3 ml Amlodipine Besylate (Norvasc) 2.5 mg PEG DAILY [facility] Last Admin: 01/13/18 09:33 Dose: 2.5 mg Aspirin (Aspirin Chewable) 81 mg GT DAILY [facility] Last Admin: 01/13/18 09:29 Dose: 81 mg Carvedilol (Coreg) 3.125 mg GT BID [facility] Last Admin: 01/13/18 09:30 Dose: 3.125 mg Clopidogrel Bisulfate (Plavix) 75 mg GT DAILY [facility] Last Admin: 01/13/18 09:30 Dose: 75 mg Dextrose (Dextrose 50% Inj) 0 ml IV STAT PRN; Protocol PRN Reason: Hypoglycemia Protocol Dextrose (Glutose 15) 0 gm PO ONCE PRN; Protocol PRN Reason: Hypoglycemia Protocol Enoxaparin Sodium (Lovenox) 40 mg SC DAILY [facility] Last Admin: 01/13/18 09:30 Dose: 40 mg Famotidine (Pepcid) 40 mg GT DAILY [facility] Last Admin: 01/13/18 09:30 Dose: 40 mg Glucagon (Glucagen Diagnostic Kit) 0 mg IM STAT PRN; Protocol PRN Reason: Hypoglycemia Protocol Hydralazine HCl (Apresoline) 10 mg IVP Q6H PRN PRN Reason: Systolic Blood Pressure Dextrose (Dextrose 5% In Water 1000 Ml) 1,000 mls @ 0 mls/hr IV .Q0M PRN; Protocol; Per Protocol PRN Reason: Hypoglycemia Protocol Piperacillin Sod/Tazobactam Sod (Zosyn 4.5 Gm Iv Premix) 4.5 gm in 100 mls @ 200 mls/hr IVPB Q6H [facility] PRN Reason: Protocol Last Admin: 01/13/18 15:13 Dose: 200 mls/hr Insulin Glargine (Lantus) 20 unit SC DAILY@1700 [facility] Last Admin: 01/12/18 17:13 Dose: 20 units Insulin Human Regular (Novolin R) 0 unit SC ACHS [facility] PRN Reason: Protocol Last Admin: 01/13/18 11:46 Dose: 6 unit Magnesium Hydroxide (Milk Of Magnesia) 30 ml GT DAILY [facility] Last Admin: 01/13/18 09:30 Dose: 30 ml Methylprednisolone (Solu-Medrol) 40 mg IVP Q8H [facility] Last Admin: 01/13/18 14:14 Dose: 40 mg Rosuvastatin Calcium (Crestor) 10 mg PO HS [facility] Last Admin: 01/12/18 22:04 Dose: 10 mg - Labs Labs: 01/13/18 06:21 01/13/18 06:14 PT 11.8 SECONDS (9.7-12.2) 01/10/18 09:11 INR 1.1 01/10/18 09:11 APTT 23 SECONDS (21-34) 01/10/18 09:11 - Head Exam Head Exam: ATRAUMATIC - Eye Exam Eye Exam: Normal appearance - ENT Exam ENT Exam: Mucous Membranes Dry - Respiratory Exam Respiratory Exam: NORMAL BREATHING PATTERN - Cardiovascular Exam Cardiovascular Exam: +S1, +S2 - GI/Abdominal Exam GI & Abdominal Exam: Normal Bowel Sounds Assessment and Plan (1) Anemia Assessment & Plan: anemia of chronic disease from malignancy Status: Acute (2) Laryngeal cancer Assessment & Plan: supportive care outpatient f/u Status: Acute
[2018-01-13] MEDS ORDERED: Piperacill/Tazo 4.5gm in Dex 4.5 GM/100 ML BAG IVPB SCH (15:30)
--- NOTE | 2018-01-13 15:38 | CP.PCM.DIS ---
<Virginia Gan - Last Filed: 01/13/18 18:03> Provider - Provider Date of Admission: 01/11/18 09:12 Attending physician: Paul Swenson MD Primary care physician: Dr. Eden Consults: Heme/Onc: Germán Pulm: Tim ID: [id number] Time Spent in preparation of Discharge (in minutes): 45 Diagnosis - Discharge Diagnosis (1) Pneumonia Status: Acute (2) Laryngeal squamous cell carcinoma Status: Chronic (3) CAD (coronary artery disease) Status: Chronic (4) Anemia Status: Chronic (5) Diabetes mellitus Status: Chronic (6) HTN (hypertension) Status: Chronic Hospital Course - Lab Results Lab Results: Micro Results 01/10/18 16:33 Trachasp Gram Stain - Final 01/10/18 16:33 Trachasp Sputum Culture - Final Pseudomonas Aeruginosa 01/10/18 08:50 Blood-Venous Blood Culture - Preliminary NO GROWTH AFTER 48 HOURS 01/10/18 09:40 Blood-Venous Blood Culture - Preliminary NO GROWTH AFTER 48 HOURS 01/10/18 17:24 Naris MRSA Culture (Admit) - Final MRSA NOT DETECTED 01/10/18 10:39 Urine,Clean Catch Urine Culture - Final No Growth (<1,000 CFU/ML) Most Recent Lab Values WBC 8.1 K/uL (4.8-10.8) 01/13/18 06:21 RBC 3.17 Mil/uL (3.80-5.20) L 01/13/18 06:21 Hgb 9.6 g/dL (11.0-16.0) L 01/13/18 06:21 Hct 26.6 % (34.0-47.0) L 01/13/18 06:21 MCV 84.0 fL (81.0-99.0) 01/13/18 06:21 MCH 30.3 pg (27.0-31.0) 01/13/18 06:21 MCHC 36.1 g/dL (33.0-37.0) 01/13/18 06:21 RDW 17.3 % (11.5-14.5) H 01/13/18 06:21 Plt Count 166 K/uL (130-400) 01/13/18 06:21 MPV 7.4 fL (7.2-11.7) 01/13/18 06:21 Neut % (Auto) 89.9 % (50.0-75.0) H 01/13/18 06:21 Lymph % (Auto) 4.4 % (20.0-40.0) L 01/13/18 06:21 Boyle % (Auto) 5.6 % (0.0-10.0) 01/13/18 06:21 Eos % (Auto) 0.0 % (0.0-4.0) 01/13/18 06:21 Baso % (Auto) 0.1 % (0.0-2.0) 01/13/18 06:21 Neut # (Auto) 7.3 K/uL (1.8-7.0) H 01/13/18 06:21 Lymph # (Auto) 0.4 K/uL (1.0-4.3) L 01/13/18 06:21 Boyle # (Auto) 0.5 K/uL (0.0-0.8) 01/13/18 06:21 Eos # (Auto) 0.0 K/uL (0.0-0.7) 01/13/18 06:21 Baso # (Auto) 0.0 K/uL (0.0-0.2) 01/13/18 06:21 Neutrophils % (Manual) 94 % (50-75) H 01/13/18 06:21 Band Neutrophils % 2 % (0-2) 01/12/18 05:56 Lymphocytes % (Manual) 3 % (20-40) L 01/13/18 06:21 Monocytes % (Manual) 3 % (0-10) 01/13/18 06:21 Basophils % (Manual) 1 % (0-2) 01/11/18 08:22 Platelet Estimate Normal (NORMAL) 01/13/18 06:21 Polychromasia Slight 01/13/18 06:21 Hypochromasia (manual) Slight 01/13/18 06:21 Poikilocytosis (manual Slight 01/12/18 05:56 Anisocytosis (manual) Slight 01/13/18 06:21 PT 11.8 SECONDS (9.7-12.2) 01/10/18 09:11 INR 1.1 01/10/18 09:11 APTT 23 SECONDS (21-34) 01/10/18 09:11 D-Dimer, Quantitative 2761 ng/mlDDU (0-243) H 01/10/18 09:11 Puncture Site Rra 01/10/18 10:04 pCO2 57 mm/Hg (35-45) H 01/10/18 10:04 pO2 241 mm/Hg (80-100) H 01/10/18 10:04 HCO3 33.3 mmol/L (21-28) H 01/10/18 10:04 ABG pH 7.42 (7.35-7.45) 01/10/18 10:04 ABG Total CO2 38.7 mmol/L (22-28) H 01/10/18 10:04 ABG O2 Saturation 100.3 % (95-98) H 01/10/18 10:04 ABG Base Excess 10.8 mmol/L (-2.0-3.0) H 01/10/18 10:04 ABG Hemoglobin 10.3 g/dL (11.7-17.4) L 01/10/18 10:04 ABG Carboxyhemoglobin 2.6 % (0.5-1.5) H 01/10/18 10:04 POC ABG HHb (Measured) -0.3 % (0.0-5.0) L 01/10/18 10:04 ABG Methemoglobin 1.7 % (0.0-3.0) 01/10/18 10:04 Alejandro Test Pos 01/10/18 10:04 VBG pH 7.11 (7.32-7.43) L* 01/10/18 09:12 VBG pCO2 124 mmHg (40-60) H* 01/10/18 09:12 VBG HCO3 27.4 mmol/L 01/10/18 09:12 VBG Total CO2 43.2 mmol/L (22-28) H 01/10/18 09:12 VBG O2 Sat (Calc) 46.7 % (40-65) 01/10/18 09:12 VBG Base Excess 5.4 mmol/L (0.0-2.0) H 01/10/18 09:12 VBG Potassium 4.0 mmol/L (3.6-5.2) 01/10/18 09:12 A-a O2 Difference 401.0 mm/Hg 01/10/18 10:04 Respiratory Index 1.7 01/10/18 10:04 Hgb O2 Saturation 96.1 % (95.0-98.0) 01/10/18 10:04 Sodium 137.0 mmol/l (132-148) 01/10/18 09:12 Chloride 97.0 mmol/L (98-107) L 01/10/18 09:12 Glucose 272 mg/dl (65-105) H 01/10/18 09:12 Lactate 1.2 mmol/L (0.7-2.1) 01/10/18 09:12 Vent Mode Prvc 01/10/18 10:04 Mechanical Rate 16 01/10/18 10:04 FiO2 100.0 % 01/10/18 10:04 Tidal Volume 400 01/10/18 10:04 PEEP 5 01/10/18 10:04 Crit Value Called To Dr ribera 01/10/18 09:12 Crit Value Called By Karl barboza fisher sponge hooking 01/10/18 09:12 Crit Value Read Back Y 01/10/18 09:12 Blood Gas Notified Time 917 01/10/18 09:12 Sodium 134 mmol/L (132-148) 01/13/18 06:14 Potassium 4.0 mmol/L (3.6-5.2) 01/13/18 06:14 Chloride 93 mmol/L (98-107) L 01/13/18 06:14 Carbon Dioxide 34 mmol/L (22-30) H 01/13/18 06:14 Anion Gap 11 (10-20) 01/13/18 06:14 BUN 26 mg/dL (7-17) H 01/13/18 06:14 Creatinine 0.4 mg/dL (0.7-1.2) L 01/13/18 06:14 Est GFR ( Amer) > 60 01/13/18 06:14 Est GFR (Non-Af Amer) > 60 01/13/18 06:14 POC Glucose (mg/dL) 276 mg/dL (65-110) H 01/13/18 11:07 Random Glucose 206 mg/dL (65-105) H 01/13/18 06:14 Calcium 7.9 mg/dl (8.6-10.4) L 01/13/18 06:14 Phosphorus 3.1 mg/dL (2.5-4.5) 01/11/18 07:27 Magnesium 2.0 mg/dL (1.6-2.3) 01/11/18 07:27 Total Bilirubin 0.6 mg/dL (0.2-1.3) 01/13/18 06:14 AST 31 U/L (14-36) 01/13/18 06:14 ALT 61 U/L (9-52) H D 01/13/18 06:14 Alkaline Phosphatase 86 U/L (38-126) 01/13/18 06:14 Total Creatine Kinase < 20 U/L (30-135) L 01/10/18 09:11 CK-MB (Mass) 2.61 ng/mL (0.0-3.38) 01/10/18 09:11 Troponin I 0.0170 ng/mL (0.00-0.120) 01/10/18 09:11 NT-Pro-B Natriuret Pep 1990 pg/mL (0-900) H 01/10/18 09:11 Total Protein 5.4 g/dL (6.3-8.3) L 01/13/18 06:14 Albumin 3.0 g/dL (3.5-5.0) L 01/13/18 06:14 Globulin 2.4 gm/dL (2.2-3.9) 01/13/18 06:14 Albumin/Globulin Ratio 1.2 (1.0-2.1) 01/13/18 06:14 Lipase 23 U/L (23-300) 01/10/18 09:11 Venous Blood Potassium 4.0 mmol/L (3.6-5.2) 01/10/18 09:12 Urine Color Yellow (YELLOW) 01/10/18 10:39 Urine Clarity Hazy (Clear) 01/10/18 10:39 Urine pH 7.0 (5.0-8.0) 01/10/18 10:39 Ur Specific [place] 1.013 (1.003-1.030) 01/10/18 10:39 Urine Protein Negative mg/dL (NEGATIVE) 01/10/18 10:39 Urine Glucose (UA) 1+ mg/dL (Normal) 01/10/18 10:39 Urine Ketones Negative mg/dL (NEGATIVE) 01/10/18 10:39 Urine Blood Negative (NEGATIVE) 01/10/18 10:39 Urine Nitrate Negative (NEGATIVE) 01/10/18 10:39 Urine Bilirubin Negative (NEGATIVE) 01/10/18 10:39 Urine Urobilinogen Normal mg/dL (0.2-1.0) 01/10/18 10:39 Ur Leukocyte Esterase Neg Arnie/uL (Negative) 01/10/18 10:39 Urine WBC (Auto) 2 /hpf (0-5) 01/10/18 10:39 Urine RBC (Auto) 2 /hpf (0-3) 01/10/18 10:39 Ur Squamous Epith Cells 2 /hpf (0-5) 01/10/18 10:39 Amorphous Sediment Rare /ul (<OCC) H 01/10/18 10:39 - Hospital Course Hospital Course: "HPI: Patient is a 72 year old female with PMH of 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 She was brought in after 02sat was found to be in the 70s. As per family at bedside patient was experiencing problems with breathing and increasing secretions one week ago for which she came to [facility] ED. At that time patient was not admitted, and given Levaquin to take as an outpatient. Since then patient's breathing has not improved. Over the weekend patient's secretions thickened with spots of bright red blood. Patient is able to shake her head and mouth responses to obtain ROS. Patient admits to shortness of breath. Patient denies fevers, chills, abdominal pain, nausea, vomiting, constipation, diarrhea, hematuria, or dysuria. After receiving a breathing treatment in the ED, patient's 02 saturation improved to the high 90s. Of note, patient has not been able to start treatment for the carcinoma due to multiple hospitalizations and infections." Patient admitted for pneumonia. Cxray: small L pleural effusion. left basilar opacity may be due to pleural effusion and or possible superimposed left basilar infiltrate. Patient was started on antibiotics for HAP along with duonebs and mucomyst. Dr. Dumont, pulmonology was consulted. PICC line was placed due to poor IV access. D dimer was elevated. CTA ordered and showed no PE, atelectasis and consolidation of the majority of the left lower lobe with relative sparing of the superior segment, mucus impacted bronchus noted in the right lower lobe, 2 pulmonary nodules in the left upper lobe, follow up CT in 3- 4 months recommended, centrilobular type emphysema seen diffusely. MRSA neg, urine negative, blood culture neg for 24 hours. Sputum showed Pseudomonas sensitive to Zosyn. Dr. Alamo was consulted who recommended patient go to LTAC on Zosyn for [address] Dumont,consulted, who agreed with present treatment. For patient's squamous cell laryngeal CA, Dr. Dunlap was consulted who follows the patient outpatient. Patient still too weak to consider treatment at this time. Patient will need to follow up as an outpatient. Patient was treated for her hypertension with Norvasc 2.5mg daily, Coreg 3.125mg bid, Hydralazine 10mg ivp q6h prn which controlled her blood pressure well. Patient's DMII was managed with Lantus 20 u sc daily and ISS. Patient should be on Glucerna tube feeds in the future. Patient's hx of CAD was managed with Crestor 10mg gt hs, Plavix 75mg gt daily, and ASA 81mg gt daily. Patient's anemia was monitored and stayed stable. No intervention needed at this time. Patient's HgB should be monitored as an outpatient by Dr. Dunlap. Upon discharge, patient was feeling much better. Patient's secretions were thin and nonbloody. Patient's oxygen saturation was stable. This is a summary of the patient's hospital course, please see chart for details. Discharge Exam - Additional Findings Additional findings: - Constitutional Appears: No Acute Distress, Older Than Stated Age, Chronically Ill - Head Exam Head Exam: ATRAUMATIC, NORMAL INSPECTION, NORMOCEPHALIC - Eye Exam Eye Exam: EOMI, Normal appearance - ENT Exam ENT Exam: Mucous Membranes Moist trach collar in place, attached to vent - Neck Exam Neck exam: Positive for: Full Rom - Respiratory Exam Respiratory Exam: Rales (b/l), Respiratory Distress - Cardiovascular Exam Cardiovascular Exam: Tachycardia, RRR, +S1, +S2 - GI/Abdominal Exam GI & Abdominal Exam: Distended, Normal Bowel Sounds, Soft. absent: Tenderness - Extremities Exam Extremities exam: Positive for: full ROM, normal inspection. Negative for: pedal edema, tenderness - Back Exam Back exam: NORMAL INSPECTION - Neurological Exam Neurological exam: Alert, Oriented x3 - Psychiatric Exam Psychiatric exam: Normal Affect, Normal Mood - Skin Skin Exam: Warm Additional comments: ecchymosis on b/l UE Discharge Plan - Discharge Medications Prescriptions: Piperacill/Tazo 4.5gm in NS [Zosyn 4.5 gm in NS 100ml] 4.5 gm IVPB Q8H 7 Days bag - Follow Up Plan Condition: FAIR Disposition[facility] Instructions: Exacerbation of COPD (DC) Additional Instructions: Patient stable for discharge to LTAC. Patient to continue home medications as prescribed. Patient needs to be on Zosyn 4.5gm ivpb q8h for 7 days and on Contact Precautions as per Dr. Alamo (ID) Patient should get tube feeds with Glucerna. Patient to follow up with Dr. Dunlap as an outpatient. Patient explained instructions who understands and agrees. Referrals: Juan Carlos Dulnap MD [Staff Provider] - <Kanu Ortiz - Last Filed: 01/13/18 18:25> Provider - Provider Date of Admission: 01/11/18 09:12 Attending physician: Paul Swenson MD Hospital Course - Lab Results Lab Results: Micro Results 01/10/18 08:50 Blood-Venous Blood Culture - Preliminary NO GROWTH AFTER 3 DAYS 01/10/18 09:40 Blood-Venous Blood Culture - Preliminary NO GROWTH AFTER 3 DAYS 01/10/18 16:33 Trachasp Gram Stain - Final 01/10/18 16:33 Trachasp Sputum Culture - Final Pseudomonas Aeruginosa 01/10/18 17:24 Naris MRSA Culture (Admit) - Final MRSA NOT DETECTED 01/10/18 10:39 Urine,Clean Catch Urine Culture - Final No Growth (<1,000 CFU/ML) Most Recent Lab Values WBC 8.1 K/uL (4.8-10.8) 01/13/18 06:21 RBC 3.17 Mil/uL (3.80-5.20) L 01/13/18 06:21 Hgb 9.6 g/dL (11.0-16.0) L 01/13/18 06:21 Hct 26.6 % (34.0-47.0) L 01/13/18 06:21 MCV 84.0 fL (81.0-99.0) 01/13/18 06:21 MCH 30.3 pg (27.0-31.0) 01/13/18 06:21 MCHC 36.1 g/dL (33.0-37.0) 01/13/18 06:21 RDW 17.3 % (11.5-14.5) H 01/13/18 06:21 Plt Count 166 K/uL (130-400) 01/13/18 06:21 MPV 7.4 fL (7.2-11.7) 01/13/18 06:21 Neut % (Auto) 89.9 % (50.0-75.0) H 01/13/18 06:21 Lymph % (Auto) 4.4 % (20.0-40.0) L 01/13/18 06:21 Boyle % (Auto) 5.6 % (0.0-10.0) 01/13/18 06:21 Eos % (Auto) 0.0 % (0.0-4.0) 01/13/18 06:21 Baso % (Auto) 0.1 % (0.0-2.0) 01/13/18 06:21 Neut # (Auto) 7.3 K/uL (1.8-7.0) H 01/13/18 06:21 Lymph # (Auto) 0.4 K/uL (1.0-4.3) L 01/13/18 06:21 Boyle # (Auto) 0.5 K/uL (0.0-0.8) 01/13/18 06:21 Eos # (Auto) 0.0 K/uL (0.0-0.7) 01/13/18 06:21 Baso # (Auto) 0.0 K/uL (0.0-0.2) 01/13/18 06:21 Neutrophils % (Manual) 94 % (50-75) H 01/13/18 06:21 Band Neutrophils % 2 % (0-2) 01/12/18 05:56 Lymphocytes % (Manual) 3 % (20-40) L 01/13/18 06:21 Monocytes % (Manual) 3 % (0-10) 01/13/18 06:21 Basophils % (Manual) 1 % (0-2) 01/11/18 08:22 Platelet Estimate Normal (NORMAL) 01/13/18 06:21 Polychromasia Slight 01/13/18 06:21 Hypochromasia (manual) Slight 01/13/18 06:21 Poikilocytosis (manual Slight 01/12/18 05:56 Anisocytosis (manual) Slight 01/13/18 06:21 PT 11.8 SECONDS (9.7-12.2) 01/10/18 09:11 INR 1.1 01/10/18 09:11 APTT 23 SECONDS (21-34) 01/10/18 09:11 D-Dimer, Quantitative 2761 ng/mlDDU (0-243) H 01/10/18 09:11 Puncture Site Rra 01/10/18 10:04 pCO2 57 mm/Hg (35-45) H 01/10/18 10:04 pO2 241 mm/Hg (80-100) H 01/10/18 10:04 HCO3 33.3 mmol/L (21-28) H 01/10/18 10:04 ABG pH 7.42 (7.35-7.45) 01/10/18 10:04 ABG Total CO2 38.7 mmol/L (22-28) H 01/10/18 10:04 ABG O2 Saturation 100.3 % (95-98) H 01/10/18 10:04 ABG Base Excess 10.8 mmol/L (-2.0-3.0) H 01/10/18 10:04 ABG Hemoglobin 10.3 g/dL (11.7-17.4) L 01/10/18 10:04 ABG Carboxyhemoglobin 2.6 % (0.5-1.5) H 01/10/18 10:04 POC ABG HHb (Measured) -0.3 % (0.0-5.0) L 01/10/18 10:04 ABG Methemoglobin 1.7 % (0.0-3.0) 01/10/18 10:04 Alejandro Test Pos 01/10/18 10:04 VBG pH 7.11 (7.32-7.43) L* 01/10/18 09:12 VBG pCO2 124 mmHg (40-60) H* 01/10/18 09:12 VBG HCO3 27.4 mmol/L 01/10/18 09:12 VBG Total CO2 43.2 mmol/L (22-28) H 01/10/18 09:12 VBG O2 Sat (Calc) 46.7 % (40-65) 01/10/18 09:12 VBG Base Excess 5.4 mmol/L (0.0-2.0) H 01/10/18 09:12 VBG Potassium 4.0 mmol/L (3.6-5.2) 01/10/18 09:12 A-a O2 Difference 401.0 mm/Hg 01/10/18 10:04 Respiratory Index 1.7 01/10/18 10:04 Hgb O2 Saturation 96.1 % (95.0-98.0) 01/10/18 10:04 Sodium 137.0 mmol/l (132-148) 01/10/18 09:12 Chloride 97.0 mmol/L (98-107) L 01/10/18 09:12 Glucose 272 mg/dl (65-105) H 01/10/18 09:12 Lactate 1.2 mmol/L (0.7-2.1) 01/10/18 09:12 Vent Mode Prvc 01/10/18 10:04 Mechanical Rate 16 01/10/18 10:04 FiO2 100.0 % 01/10/18 10:04 Tidal Volume 400 01/10/18 10:04 PEEP 5 01/10/18 10:04 Crit Value Called To Dr ribera 01/10/18 09:12 Crit Value Called By Karl barboza fisher sponge hooking 01/10/18 09:12 Crit Value Read Back Y 01/10/18 09:12 Blood Gas Notified Time 917 01/10/18 09:12 Sodium 134 mmol/L (132-148) 01/13/18 06:14 Potassium 4.0 mmol/L (3.6-5.2) 01/13/18 06:14 Chloride 93 mmol/L (98-107) L 01/13/18 06:14 Carbon Dioxide 34 mmol/L (22-30) H 01/13/18 06:14 Anion Gap 11 (10-20) 01/13/18 06:14 BUN 26 mg/dL (7-17) H 01/13/18 06:14 Creatinine 0.4 mg/dL (0.7-1.2) L 01/13/18 06:14 Est GFR ( Amer) > 60 01/13/18 06:14 Est GFR (Non-Af Amer) > 60 01/13/18 06:14 POC Glucose (mg/dL) 276 mg/dL (65-110) H 01/13/18 11:07 Random Glucose 206 mg/dL (65-105) H 01/13/18 06:14 Calcium 7.9 mg/dl (8.6-10.4) L 01/13/18 06:14 Phosphorus 3.1 mg/dL (2.5-4.5) 01/11/18 07:27 Magnesium 2.0 mg/dL (1.6-2.3) 01/11/18 07:27 Total Bilirubin 0.6 mg/dL (0.2-1.3) 01/13/18 06:14 AST 31 U/L (14-36) 01/13/18 06:14 ALT 61 U/L (9-52) H D 01/13/18 06:14 Alkaline Phosphatase 86 U/L (38-126) 01/13/18 06:14 Total Creatine Kinase < 20 U/L (30-135) L 01/10/18 09:11 CK-MB (Mass) 2.61 ng/mL (0.0-3.38) 01/10/18 09:11 Troponin I 0.0170 ng/mL (0.00-0.120) 01/10/18 09:11 NT-Pro-B Natriuret Pep 1990 pg/mL (0-900) H 01/10/18 09:11 Total Protein 5.4 g/dL (6.3-8.3) L 01/13/18 06:14 Albumin 3.0 g/dL (3.5-5.0) L 01/13/18 06:14 Globulin 2.4 gm/dL (2.2-3.9) 01/13/18 06:14 Albumin/Globulin Ratio 1.2 (1.0-2.1) 01/13/18 06:14 Lipase 23 U/L (23-300) 01/10/18 09:11 Venous Blood Potassium 4.0 mmol/L (3.6-5.2) 01/10/18 09:12 Urine Color Yellow (YELLOW) 01/10/18 10:39 Urine Clarity Hazy (Clear) 01/10/18 10:39 Urine pH 7.0 (5.0-8.0) 01/10/18 10:39 Ur Specific [place] 1.013 (1.003-1.030) 01/10/18 10:39 Urine Protein Negative mg/dL (NEGATIVE) 01/10/18 10:39 Urine Glucose (UA) 1+ mg/dL (Normal) 01/10/18 10:39 Urine Ketones Negative mg/dL (NEGATIVE) 01/10/18 10:39 Urine Blood Negative (NEGATIVE) 01/10/18 10:39 Urine Nitrate Negative (NEGATIVE) 01/10/18 10:39 Urine Bilirubin Negative (NEGATIVE) 01/10/18 10:39 Urine Urobilinogen Normal mg/dL (0.2-1.0) 01/10/18 10:39 Ur Leukocyte Esterase Neg Arnie/uL (Negative) 01/10/18 10:39 Urine WBC (Auto) 2 /hpf (0-5) 01/10/18 10:39 Urine RBC (Auto) 2 /hpf (0-3) 01/10/18 10:39 Ur Squamous Epith Cells 2 /hpf (0-5) 01/10/18 10:39 Amorphous Sediment Rare /ul (<OCC) H 01/10/18 10:39 Attending/Attestation - Attestation I have personally seen and examined this patient.: Yes I have fully participated in the care of the patient.: Yes I have reviewed all pertinent clinical information, including history, physical exam and plan: Yes Notes (Text): Discharge plan discussed with the resident Spoke to the patient's daughter at bedside We will discharge to LTAC on IV Zosyn as recommended by Dr Alamo
[2018-01-13] MEDS: (Lantus) Insulin Glargine, Recombinant SC SCH (16:27)
--- NOTE | 2018-01-13 17:41 | CP.PCM.PN ---
Subjective - Date & Time of Evaluation Date of Evaluation: 01/13/18 Time of Evaluation: 12:10 - Subjective Subjective: patient seen and examined Awake and responsive on trach collar Afebrile Or shortness of breath For transfer to subacute Objective - Vital Signs/Intake and Output Vital Signs (last 24 hours): Temp Pulse Resp BP Pulse Ox 98.3 F 83 20 118/82 100 01/13/18 12:00 01/13/18 12:00 01/13/18 12:00 01/13/18 12:00 01/13/18 12:00 Intake and Output: 01/13/18 01/13/18 06:59 18:59 Intake Total 980 Output Total 500 Balance 480 - Medications Medications: Current Medications Albuterol/Ipratropium (Duoneb 3 Mg/0.5 Mg (3 Ml) Ud) 3 ml IH RQ4 [facility] Last Admin: 01/13/18 16:00 Dose: 3 ml Amlodipine Besylate (Norvasc) 2.5 mg PEG DAILY [facility] Last Admin: 01/13/18 09:33 Dose: 2.5 mg Aspirin (Aspirin Chewable) 81 mg GT DAILY [facility] Last Admin: 01/13/18 09:29 Dose: 81 mg Carvedilol (Coreg) 3.125 mg GT BID [facility] Last Admin: 01/13/18 17:15 Dose: 3.125 mg Clopidogrel Bisulfate (Plavix) 75 mg GT DAILY [facility] Last Admin: 01/13/18 09:30 Dose: 75 mg Dextrose (Dextrose 50% Inj) 0 ml IV STAT PRN; Protocol PRN Reason: Hypoglycemia Protocol Dextrose (Glutose 15) 0 gm PO ONCE PRN; Protocol PRN Reason: Hypoglycemia Protocol Enoxaparin Sodium (Lovenox) 40 mg SC DAILY [facility] Last Admin: 01/13/18 09:30 Dose: 40 mg Famotidine (Pepcid) 40 mg GT DAILY [facility] Last Admin: 01/13/18 09:30 Dose: 40 mg Glucagon (Glucagen Diagnostic Kit) 0 mg IM STAT PRN; Protocol PRN Reason: Hypoglycemia Protocol Hydralazine HCl (Apresoline) 10 mg IVP Q6H PRN PRN Reason: Systolic Blood Pressure Dextrose (Dextrose 5% In Water 1000 Ml) 1,000 mls @ 0 mls/hr IV .Q0M PRN; Protocol; Per Protocol PRN Reason: Hypoglycemia Protocol Piperacillin Sod/Tazobactam Sod (Zosyn 4.5 Gm Iv Premix) 4.5 gm in 100 mls @ 200 mls/hr IVPB Q8H [facility] PRN Reason: Protocol Last Admin: 01/13/18 15:35 Dose: Not Given Insulin Glargine (Lantus) 20 unit SC DAILY@1700 [facility] Last Admin: 01/13/18 16:27 Dose: 20 units Insulin Human Regular (Novolin R) 0 unit SC ACHS [facility] PRN Reason: Protocol Last Admin: 01/13/18 16:26 Dose: 8 unit Magnesium Hydroxide (Milk Of Magnesia) 30 ml GT DAILY [facility] Last Admin: 01/13/18 09:30 Dose: 30 ml Methylprednisolone (Solu-Medrol) 40 mg IVP Q8H [facility] Last Admin: 01/13/18 14:14 Dose: 40 mg Rosuvastatin Calcium (Crestor) 10 mg PO HS [facility] Last Admin: 01/12/18 22:04 Dose: 10 mg - Labs Labs: 01/13/18 06:21 01/13/18 06:14 PT 11.8 SECONDS (9.7-12.2) 01/10/18 09:11 INR 1.1 01/10/18 09:11 APTT 23 SECONDS (21-34) 01/10/18 09:11 Assessment and Plan (1) Respiratory distress Status: Acute (2) COPD (chronic obstructive pulmonary disease) Status: Acute (3) Laryngeal squamous cell carcinoma Status: Chronic (4) Mucus plugging of bronchi Status: Acute (5) Pneumonia Status: Acute
[2018-01-13 17:58] VITALS: BP 126/69; TEMP 98.5; O2SAT 99
[2018-01-13 18:09] VITALS: PULSE 89
--- NOTE | 2018-01-14 02:19 | CON ---
DATE: 01/13/2018 INFECTIOUS DISEASE CONSULT HISTORY OF PRESENT ILLNESS: This patient is a 72-year-old female. She is known to me from before. She is status post trach, has a trach collar at this time. She has squamous cell laryngeal cancer, history of tracheostomy, gastrostomy, CHF, COPD, hypertension, hyperlipidemia and diabetes. She was admitted with respiratory distress from [place], was brought in with the saturation was in the 70s, and the patient was experiencing trouble breathing and was having increased secretions for 1 week, so she was admitted to this hospital on 01/10/2018. I am asked to evaluate her as she has pseudomonas in the sputum, and she was initially on Maxipime, but this came out sensitive to Zosyn, and she is just being changed to Zosyn, and she is on a higher dose of Zosyn for treating pseudomonas. They have a bed for her in LTAC and she may be transferred. The patient is still on telemetry in the ICU and they plan to discharge her to LTAC. The patient at this time feels well. Her son is at the bedside, and he says she looks good, and her numbers are all great, and she is breathing good. She denies any problems. She is awake and alert. She mostly writes and tells her problems. ALLERGIES: SHE IS NOT ALLERGIC TO ANY MEDICINE. PAST MEDICAL HISTORY: Significant for squamous cell laryngeal carcinoma, CHF, COPD, hypertension, hyperlipidemia, hypothyroidism, diabetes. PAST SURGICAL HISTORY: Significant for a trach, which was emergency trach done on 11/15/2017. She also has a GT tube. She also had appendicectomy history, endoscopy, has cardiac stents which were placed in 2010 and has had partial thyroidectomy. FAMILY HISTORY: Significant for father and brother both , both had [place]. SOCIAL HISTORY: Significant for smoking for 60-pack years. No history of alcohol. No drug abuse. REVIEW OF SYSTEMS: When she came in, she came in with respiratory distress, was having cough, dyspnea and chest congestion and excessive mucous production and her x-rays were suggestive of that. Right now, she has no fever. She denies any chest pain. No shortness of breath. No abdominal pain. No nausea. She is breathing on a trach collar. She denies any urinary symptoms. She does show bilateral arms with ecchymosis, which is healing. She has history of easy bruisability. She has no history of kidney stones. She does have hypothyroidism endocrine montiel, and has history of cancer, history of shingles. No history of dermatological problems. No history of fall. No GI problems reported. No problems. No substance abuse. She has surgical history of appendicectomy and trach, and she does have a cancer, which was I think had been evaluated by the oncologist before. PHYSICAL EXAMINATION: VITAL SIGNS: I find her temperature is 98.2, she has not had any fever since she is here and temperature today is 98.5; heart rate is 99, blood pressure 146/82, respirations are 17. GENERAL: She is alert and awake, able to communicate, but because of the trach, she is not, so she writes most of the time. HEENT: Head is atraumatic, normocephalic. Eyes are reacting to light. No pallor present. Tongue is moist. NECK: She has a trach, trach site appears unremarkable. Neck is supple. LUNGS: Mostly clear. No crackles or rales heard. Decreased breath sounds and occasional rhonchi. HEART: S1, S2 are regular. No murmurs appreciated. ABDOMEN: Soft. Nontender. No guarding. No rigidity present. She has a PEG tube. EXTREMITIES: No edema, clubbing or cyanosis. LABORATORY DATA: Labs are noted. Labs show white count is 8.1, hemoglobin 9.6, hematocrit 26.6, platelet count is 166. Sodium is 134, potassium is 4, CO2 is 34, chloride 93, BUN is 26, creatinine 0.40, glucose is 276. The chest CT was done on 01/10/2018, which shows no pulmonary embolism, atelectasis and consolidation of majority of the left lower lung with relative sparing of the superior segment, mucus-impacted bronchus noted in the right lower lobe, 2 pulmonary nodules in the left upper lobe, followup CT in 3 to 4 months and centrilobular type emphysema seen diffusely. MEDICATIONS: Her other medications she is on at this time are albuterol, Norvasc, aspirin, Coreg, Plavix, Lovenox, Pepcid, glucagon, alprazolam, Lantus, Novolin R, milk of magnesia, methylprednisolone. She is on Zosyn 4.5 every 6 hours at this time, and she is also on Crestor. IMPRESSION AND PLAN: This patient came in with probably mucus plugging and had left side pneumonia and had respiratory distress. She has chronic obstructive pulmonary disease, she had mucus plugging of the bronchi, she is status post tracheostomy, she has pseudomonas, which is resistant, it is poorly sensitive to Zosyn and to amikacin, and we have asked them to check for Avycaz and colistin. In case the patient has any problems Zosyn could be changed to Avycaz and colistin, but you need to call us for the sensitivities tomorrow, that is on 01/14/2018 because micro is still doing it. For now, I will leave the patient on Zosyn, she looks very comfortable, and she needs contact precaution and will need Zosyn for next 7 days along with the respiratory treatment and can be transferred to LTAC. She has a laryngeal cancer, we are aware of it and I think it was metastatic that is what I remember from last admission. Chanel Alamo MD
== END 2018-01-13 18:22 | DRG 208 ==
LOC: C.ER 08:42 → C.9E 12:22 → C.5S 13:48 → C.9E 14:20 → C.9I 15:32 → OBSVTOIN 01-11 09:12
PROVIDERS: ADMIT Internal Medicine; ATTEND Internal Medicine
PROC: 02HV33Z Insertion of Infusion Device into Superior Vena Cava, Percutaneous Approach (ICD-10-PCS; principal; 2018-01-10)
PROC: B548ZZA Ultrasonography of Superior Vena Cava, Guidance (ICD-10-PCS; 2018-01-10)
PROC: 5A1945Z Respiratory Ventilation, 24-96 Consecutive Hours (ICD-10-PCS; 2018-01-10)
DX: J18.9 Pneumonia, unspecified organism (principal); J96.02 Acute respiratory failure with hypercapnia; J96.01 Acute respiratory failure with hypoxia; J44.0 Chronic obstructive pulmonary disease with (acute) lower respiratory infection; J44.1 Chronic obstructive pulmonary disease with (acute) exacerbation; C32.9 Malignant neoplasm of larynx, unspecified; J98.09 Other diseases of bronchus, not elsewhere classified; D63.8 Anemia in other chronic diseases classified elsewhere; I11.0 Hypertensive heart disease with heart failure; I25.10 Atherosclerotic heart disease of native coronary artery without angina pectoris; I50.9 Heart failure, unspecified; E03.9 Hypothyroidism, unspecified; E11.9 Type 2 diabetes mellitus without complications; L89.302 Pressure ulcer of unspecified buttock, stage 2; E78.00 Pure hypercholesterolemia, unspecified; E78.5 Hyperlipidemia, unspecified; Y95 Nosocomial condition; Z87.891 Personal history of nicotine dependence; Z93.0 Tracheostomy status; Z93.1 Gastrostomy status; Z95.5 Presence of coronary angioplasty implant and graft; Z90.49 Acquired absence of other specified parts of digestive tract; Z85.21 Personal history of malignant neoplasm of larynx; Z79.82 Long term (current) use of aspirin; Z79.4 Long term (current) use of insulin

== ENCOUNTER 2018-03-09 17:08 | Emergency (ER) | payer MEDICAID, MEDICARE ==
[2018-03-09 17:08] VITALS: BMI 21.2
--- NOTE | 2018-03-09 17:55 | C.PDOC ---
History Of Present Illness 72yo female with history of squamous cell laryngeal cancer, resulting in a tracheostomy and gastrostomy, currently residing in a halfway, comes to ER for evaluation as per records, patient was noted to have increased secretions which were at times blood tinged. Patient is non-verbal but is able to communicate nodding her head yes or no and reading her lips; she states she feels short of breath intermittently but has no fever. She also states she has been coughing more than usual and has congestion. She does have secretions suctioned regularly at the halfway. She denies any abdominal pain, vomiting and offers no other complaints. Time Seen by Provider: 03/09/18 17:23 Chief Complaint (Nursing): Shortness Of Breath History Per: Patient, Other (halfway records) History/Exam Limitations: no limitations Onset/Duration Of Symptoms: Days Current Symptoms Are (Timing): Still Present Past Medical History Reviewed: Historical Data, Nursing Documentation, Vital Signs Vital Signs: Last Vital Signs Temp 98.2 F 03/09/18 18:24 Pulse 69 03/09/18 18:24 Resp 22 03/09/18 18:24 BP 126/66 03/09/18 18:24 Pulse Ox 95 03/09/18 18:24 - Medical History PMH: CHF, COPD, Diabetes, HTN, Hypercholesterolemia, Hyperlipidemia, Hypothyroidism, Malignancy (Vocal cords) Denies: Kidney Stones Surgical History: Appendectomy, Endoscopy Other Surgeries: tracheostomy, gastrostomy - [facility] (10/11/17) BYPASS TRACHEA TO CUTANEOUS WITH TRACH DEV, OPEN APPROACH (11/15/17) CHANGE FEEDING DEVICE IN UP INTEST TRACT, PATHOLOGY TECHNOLOGIST APPROACH (12/18/17) INSERTION OF FEEDING DEVICE INTO STOMACH, OPEN APPROACH (11/15/17) INSERTION OF INFUSION DEV INTO SUP VENA CAVA, PERC APPROACH (01/11/18) INTRODUCTION OF NUTRITIONAL INTO UP GI, VIA OPENING (12/18/17) RESPIRATORY VENTILATION, 24-96 CONSECUTIVE HOURS (01/11/18) RESPIRATORY VENTILATION, GREATER THAN 96 CONSECUTIVE HOURS (11/15/17) ULTRASONOGRAPHY OF NECK (10/11/17) ULTRASONOGRAPHY OF SUPERIOR VENA CAVA, GUIDANCE (01/11/18) Family History: States: Unknown Family Hx - Social History Hx Tobacco Use: Yes Hx Alcohol Use: No Hx Substance Use: No - Immunization History Hx Tetanus Toxoid Vaccination: Yes Hx Influenza Vaccination: Yes Hx Pneumococcal Vaccination: Yes Review Of Systems Constitutional: Negative for: Fever, Chills ENT: Positive for: Other (blood tinged secretions ) Respiratory: Positive for: Cough, Shortness of Breath, Sputum. Negative for: Pleuritic Pain, Wheezing Gastrointestinal: Negative for: Nausea, Vomiting, Abdominal Pain Physical Exam - Physical Exam Appears: Non-toxic Skin: Normal Color, Warm, Dry Head: Atraumatic, Normacephalic Eye(s): bilateral: Normal Inspection Oral Mucosa: Moist Throat: Other (tracheostomy in place; ha/blood tinges mucus noted) Neck: Normal ROM, Supple Chest: Symmetrical Cardiovascular: Rhythm Regular Respiratory: Rhonchi (coarse rhonchi), Other (wet and transmitted breath sounds) Gastrointestinal/Abdominal: Soft, No Tenderness, Other (gastrostomy tube intact , clean and dry site. no discharge, erythema, warmth noted.) Extremity: Normal ROM Neurological/Psych: Oriented x3, Normal Cognition, Normal Motor, Normal Sensation ED Course And Treatment - Laboratory Results Result Diagrams: 03/09/18 17:59 03/09/18 17:59 Lab Interpretation: No Acute Changes O2 Sat by Pulse Oximetry: 95 (RA) Pulse Ox Interpretation: Normal - Radiology CXR: Interpreted by Me CXR Interpretation: Yes: No Acute Disease Reevaluation Time: 20:30 Reassessment Condition: Improved (Patient remains comfortable in Ed without respiratory distress. She was suctioned for sputum without evidence of bleeding. ) Medical Decision Making Medical Decision Making: Plan: * Labs * EKG * CXR * O2 via Trach Collar Prior records reviewed, patient was admitted in December 2017 for similar symptoms and treated for pneumonia. Disposition Counseled Patient/Family Regarding: Studies Performed, Diagnosis, Need For Followup - Disposition Referrals: Miguel Dunlap MD [Staff Provider] - Ruslan Hull MD [Staff Provider] - Disposition: TRANSF TO SNF Disposition Time: 20:31 Condition: IMPROVED Instructions: How to Care for a Tracheostomy Forms: [facility] (Ugandan) - Clinical Impression Clinical Impression: Laryngeal squamous cell carcinoma, Difficulty clearing secretions - Scribe Statement The provider has reviewed the documentation as recorded by the Aminaibroderick Quinones Provider Attestation: All medical record entries made by the Scribe were at my direction and personally dictated by me. I have reviewed the chart and agree that the record accurately reflects my personal performance of the history, physical exam, medical decision making, and the department course for this patient. I have also personally directed, reviewed, and agree with the discharge instructions and disposition.
--- NOTE | 2018-03-09 18:02 | RAD ---
Date of service: 03/09/2018 PROCEDURE: CHEST RADIOGRAPH, 1 VIEW HISTORY: SOB COMPARISON: 01/10/2018. FINDINGS: There is stable position of the tracheostomy tube. LUNGS: The lungs are well inflated and clear. PLEURA: No pneumothorax or pleural fluid seen. CARDIOVASCULAR: Normal. OSSEOUS STRUCTURES: No significant abnormalities. VISUALIZED UPPER ABDOMEN: Normal. OTHER FINDINGS: None. IMPRESSION: No active pulmonary disease.
[2018-03-09 18:07] LABS: BASO % 0.3 % (0.0-2.0); EOS # 0.2 K/uL (0.0-0.7); EOS % 3.1 % (0.0-4.0); HEMOGLOBIN 12.5 g/dL (11.0-16.0); LYMPH # 1.2 K/uL (1.0-4.3); LYMPH % 17.7 % (20.0-40.0); MEAN CELL VOLUME 90.1 fL (81.0-99.0); MEAN CORPUSCULAR HEMOGLOBIN 31.6 pg (27.0-31.0); MEAN PLATELET VOLUME 7.8 fL (7.2-11.7); MONO # 0.9 K/uL (0.0-0.8); MONO % 13.3 % (0.0-10.0); NEUT # 4.5 K/uL (1.8-7.0); NEUT % 65.6 % (50.0-75.0); NRBC % 0.1 % (0.0-2.0); RBC 3.95 Mil/uL (3.80-5.20); RED CELL DISTRIBUTION WIDTH 16.3 % (11.5-14.5); WHITE BLOOD COUNT 6.8 K/uL (4.8-10.8)
[2018-03-09 18:19] LABS: ALB/GLOB RATIO 1.3 (1.0-2.1); ALT/SGPT 35 U/L (9-52); AST/SGOT 26 U/L (14-36); BLOOD UREA NITROGEN 28 mg/dL (7-17); CALCIUM 9.7 mg/dl (8.6-10.4); GFR AFRICAN-AMERICAN > 60; GFR NON-AFRICAN AMERICAN > 60
[2018-03-09 22:43] VITALS: BP 136/68; PULSE 67; RESP 20; TEMP 98.1; O2SAT 98
== END 2018-03-09 22:43 ==
LOC: C.ER 17:08
DX: C32.9 Malignant neoplasm of larynx, unspecified (principal); K11.7 Disturbances of salivary secretion; I11.0 Hypertensive heart disease with heart failure; I50.9 Heart failure, unspecified; J44.0 Chronic obstructive pulmonary disease with (acute) lower respiratory infection; Z87.891 Personal history of nicotine dependence; Z93.0 Tracheostomy status; Z93.1 Gastrostomy status

== ENCOUNTER 2018-03-21 14:00 | Inpatient (IN) | payer MEDICARE, BC ==
[2018-03-21 19:49] LABS: BASO % 0.5 % (0.0-2.0); EOS # 0.3 K/uL (0.0-0.7); EOS % 3.9 % (0.0-4.0); HEMOGLOBIN 11.3 g/dL (11.0-16.0); LYMPH # 1.3 K/uL (1.0-4.3); LYMPH % 18.6 % (20.0-40.0); MEAN CELL VOLUME 88.8 fL (81.0-99.0); MEAN CORPUSCULAR HGB CONC 33.8 g/dL (33.0-37.0); MONO # 1.1 K/uL (0.0-0.8); MONO % 15.2 % (0.0-10.0); NEUT # 4.4 K/uL (1.8-7.0); NEUT % 61.8 % (50.0-75.0); RBC 3.76 Mil/uL (3.80-5.20); RED CELL DISTRIBUTION WIDTH 15.6 % (11.5-14.5); WHITE BLOOD COUNT 7.1 K/uL (4.8-10.8)
[2018-03-21 19:59] LABS: INR 1.1; PROTHROMBIN TIME 12.1 SECONDS (9.7-12.2)
[2018-03-21 20:07] LABS: ALB/GLOB RATIO 1.3 (1.0-2.1); ALBUMIN 3.6 g/dL (3.5-5.0); ALT/SGPT 34 U/L (9-52); AST/SGOT 41 U/L (14-36); BLOOD UREA NITROGEN 26 mg/dL (7-17); CALCIUM 9.5 mg/dl (8.6-10.4); GFR NON-AFRICAN AMERICAN > 60
--- NOTE | 2018-03-21 20:26 | CP.PCM.HP ---
<Tico Adams - Last Filed: 03/21/18 22:05> History of Present Illness - History of Present Illness History of Present Illness: PGY2 Medicine H+P for Dr. Vamshi Villela Patient is a 72 year old female with PMH of squamous cell laryngeal carcinoma requiring a tracheostomy and gastrostomy, CHF, COPD HTN, HLD, DM, who was brought into the ED from [facility] after experiencing increasing oral secretions. Patient was a direct admission for Dr. Hull. Patient has hx of emergent trach placed on 11/15/17. She recently had her trach replaced with a non-cuffed trach tube. Since replacement, patient has been experiencing increase in oral secretions and cough. Patient is being admitted to have trach replaced in OR with Dr. Hull tomorrow morning. Patient has no complaints at this time. PMD: Dr. May Pulm: Dr. Dumont Heme/onc: Dr. Dunlap ENT: Dr. Hull PMH: Squamous cell laryngeal carcinoma, CHF, COPD, HTN, HLD, GERD, Hypothyroidism, DM SurgHx: Tracheostomy (11/15/17), gastrostomy, appendectomy, endoscopy, cardiac stents (2010), partial thyroidectomy Family: father, brother: [place] Social: hx of smoking (60 pack years), denies alcohol or drug use; [facility]) Allergies: NKDA Meds: * Amlodipine 2.5mg PEG daily * Aspirin 81mg PEG daily * Carvedilol 3.125mg PEG BID * Cefepime 1gm (started on 03/16 for total of 10 days) * Crestor 10mg PEG HS * Famotidine Susp 40mg PEG daily * Duoneb 3mL INH q6h * Levemir 10u SC daily * Lovenox 40mg SC daily * Multivitamin Liquid 5mL PEG * Novolin R Sliding Scale * Plavix 75mg PEG daily Present on Admission - Present on Admission Any Indicators Present on Admission: No Review of Systems - Review of Systems All systems: reviewed and no additional remarkable complaints except - Constitutional Constitutional: As Per HPI. absent: Chills, Fever - EENT Eyes: As Per HPI Nose/Mouth/Throat: As Per HPI - Cardiovascular Cardiovascular: As Per HPI. absent: Chest Pain, Chest Pain at Rest - Respiratory Respiratory: As Per HPI, Cough, Excessive Mucous Production. absent: Dyspnea, Stridor - Gastrointestinal Gastrointestinal: As Per HPI. absent: Abdominal Pain, Constipation, Diarrhea, Nausea, Vomiting - Genitourinary Genitourinary: As Per HPI. absent: Change in Urinary Stream, Flank Pain, Urinary Incontinence - Neurological Neurological: As Per HPI - Psychiatric Psychiatric: As Per HPI - Endocrine Endocrine: As Per HPI - Hematologic/Lymphatic Hematologic: As Per HPI Past Patient History - Infectious Disease Hx of Infectious Diseases: None - Past Medical History & Family History Past Medical History?: Yes - Past Social History Smoking Status: Former Smoker - CARDIAC Hx Cardiac Disorders: Yes Hx Congestive Heart Failure: Yes Hx Hypercholesterolemia: Yes Hx Hypertension: Yes - PULMONARY Hx Respiratory Disorders: Yes Hx Chronic Obstructive Pulmonary Disease (COPD): Yes - NEUROLOGICAL Hx Neurological Disorder: No - HEENT Hx HEENT Problems: Yes Other/Comment: HX: RIGHT JUGULARY LYMPH NODE BX.(10/12/17). HX: VOCAL CORD POLYP - RENAL Hx Chronic Kidney Disease: No Hx Kidney Stones: No - ENDOCRINE/METABOLIC Hx Endocrine Disorders: Yes Hx Hypothyroidism: Yes - HEMATOLOGICAL/ONCOLOGICAL Hx Blood Disorders: Yes Hx Cancer: Yes (Larynx) Hx Shingles: Yes - INTEGUMENTARY Hx Dermatological Problems: No - MUSCULOSKELETAL/RHEUMATOLOGICAL Hx Falls: No - GASTROINTESTINAL Hx Gastrointestinal Disorders: No - GENITOURINARY/GYNECOLOGICAL Hx Genitourinary Disorders: No - PSYCHIATRIC Hx Substance Use: No - SURGICAL HISTORY Hx Surgeries: Yes Hx Appendectomy: Yes - ANESTHESIA Hx Anesthesia: Yes Hx Anesthesia Reactions: No Hx Malignant Hyperthermia: No Has any member of the family had a problem w/ anesthesia?: No Meds Allergies/Adverse Reactions: Allergies Allergy/AdvReac Type Severity Reaction Status Date / Time No Known Allergies Allergy Verified 12/18/17 18:15 Physical Exam - Constitutional Appears: Non-toxic, No Acute Distress, Chronically Ill - Head Exam Head Exam: ATRAUMATIC, NORMOCEPHALIC - Eye Exam Eye Exam: EOMI, Normal appearance, PERRL Pupil Exam: NORMAL ACCOMODATION, PERRL - ENT Exam ENT Exam: Mucous Membranes Moist Additional comments: excess amounts of clear oral secretions - Neck Exam Neck exam: Negative for: Lymphadenopathy - Respiratory Exam Respiratory Exam: Rhonchi (throughout b/l). absent: Accessory Muscle Use, Rales , Wheezes, Respiratory Distress Additional comments: difficult to differentiate between lung sounds and upper airway sounds. - Cardiovascular Exam Cardiovascular Exam: REGULAR RHYTHM, +S1, +S2 - GI/Abdominal Exam GI & Abdominal Exam: Soft. absent: Distended, Firm, Rebound, Tenderness Additional comments: PEG tube in place with trace amount of yellow liquid surrounding insertion site. - Extremities Exam Extremities exam: Positive for: pedal pulses present. Negative for: calf tenderness, pedal edema Additional comments: SCDs in place. - Back Exam Additional comments: blanchable erythema over sacrum - Neurological Exam Neurological exam: Alert, Oriented x3 - Psychiatric Exam Psychiatric exam: Normal Affect, Normal Mood - Skin Skin Exam: Dry, Warm Results - Vital Signs Recent Vital Signs: Last Vital Signs Temp 98.7 F 03/21/18 18:30 Pulse 72 03/21/18 18:56 Resp 18 03/21/18 18:56 BP 134/80 03/21/18 18:30 Pulse Ox 98 03/21/18 18:30 - Labs Result Diagrams: 03/21/18 19:42 03/21/18 19:42 Labs: Laboratory Results - last 24 hr 03/21/18 03/21/18 03/21/18 18:56 18:58 19:42 WBC 7.1 RBC 3.76 L Hgb 11.3 Hct 33.4 L MCV 88.8 MCH 30.0 MCHC 33.8 RDW 15.6 H Plt Count 247 MPV 8.0 Neut % (Auto) 61.8 Lymph % (Auto) 18.6 L C[place] % (Auto) 15.2 H Eos % (Auto) 3.9 Baso % (Auto) 0.5 Neut # (Auto) 4.4 Lymph # (Auto) 1.3 Ciales # (Auto) 1.1 H Eos # (Auto) 0.3 Baso # (Auto) 0.0 PT INR Sodium Potassium Chloride Carbon Dioxide Anion Gap BUN Creatinine Est GFR ( Amer) Est GFR (Non-Af Amer) POC Glucose (mg/dL) 69 68 Random Glucose Calcium Phosphorus Magnesium Total Bilirubin AST ALT Alkaline Phosphatase Total Protein Albumin Globulin Albumin/Globulin Ratio 03/21/18 03/21/18 19:42 19:42 WBC RBC Hgb Hct MCV MCH MCHC RDW Plt Count MPV Neut % (Auto) Lymph % (Auto) C[place] % (Auto) Eos % (Auto) Baso % (Auto) Neut # (Auto) Lymph # (Auto) Ciales # (Auto) Eos # (Auto) Baso # (Auto) PT 12.1 INR 1.1 Sodium 139 Potassium 3.9 Chloride 102 Carbon Dioxide 31 H Anion Gap 10 BUN 26 H Creatinine 0.5 L Est GFR ( Amer) > 60 Est GFR (Non-Af Amer) > 60 POC Glucose (mg/dL) Random Glucose 78 Calcium 9.5 Phosphorus 4.1 Magnesium 2.1 Total Bilirubin 0.3 AST 41 H D ALT 34 Alkaline Phosphatase 81 Total Protein 6.4 Albumin 3.6 Globulin 2.8 Albumin/Globulin Ratio 1.3 Assessment & Plan - Assessment and Plan (Free Text) Plan: Tracheostomy malfunction ENT consulted, Dr. Hull * Patient scheduled for OR in morning to exchange trach tube. * follow up recs CXR: pending official report Neck CT w/: pending official report Chest CT w/o: pending official report * Chest CT was originally ordered with Neck CT but accessibility lift technician decided to discontinue Chest CT and thought that it was ok to just extend neck CT to cover the upper lobes of lungs. This was discovered around approximately 10:45pm while reviewing films. CT was call and informed that this was not the case and they needed to take patient back for CT of chest. hx of emergent Tracheostomy placed on 11/15/17 Needs continuous tracheostomy care Laryngeal cancer Hem/Onc consulted, Dr. 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 History of Diabetes mellitus Tube Feeds - Glucerna 1.5 @60mL ISS Levemir 10u SC daily Hypoglycemia protocol Accuchecks Continue to monitor History of COPD Former heavy smoker (60 pack-years) Duonebs 3mL INH q6h History of CAD Medications: * Aspirin 81mg PO daily * Plavix 75mg PO daily History of HTN Medications: * Coreg 3.125mg PO BID * Norvasc 2.5mg PO daily Continue to monitor Prophylaxis: Pepcid 40mg po daily VTE ppx contraindicated due to OR in AM SCDs Multivitamin liquid Peridex mouth wash DNR/DNI <Villela,Vamshi J - Last Filed: 03/22/18 02:12> Results - Vital Signs Recent Vital Signs: Last Vital Signs Temp 98.4 F 03/21/18 23:21 Pulse 80 03/21/18 23:21 Resp 20 03/21/18 23:21 BP 150/80 03/21/18 23:21 Pulse Ox 99 03/21/18 23:21 - Labs Result Diagrams: 03/21/18 19:42 03/21/18 19:42 Labs: Laboratory Results - last 24 hr 03/21/18 03/21/18 03/21/18 18:56 18:58 19:42 WBC 7.1 RBC 3.76 L Hgb 11.3 Hct 33.4 L MCV 88.8 MCH 30.0 MCHC 33.8 RDW 15.6 H Plt Count 247 MPV 8.0 Neut % (Auto) 61.8 Lymph % (Auto) 18.6 L Ciales % (Auto) 15.2 H Eos % (Auto) 3.9 Baso % (Auto) 0.5 Neut # (Auto) 4.4 Lymph # (Auto) 1.3 Ciales # (Auto) 1.1 H Eos # (Auto) 0.3 Baso # (Auto) 0.0 PT INR Sodium Potassium Chloride Carbon Dioxide Anion Gap BUN Creatinine Est GFR ( Amer) Est GFR (Non-Af Amer) POC Glucose (mg/dL) 69 68 Random Glucose Calcium Phosphorus Magnesium Total Bilirubin AST ALT Alkaline Phosphatase Total Protein Albumin Globulin Albumin/Globulin Ratio 03/21/18 03/21/18 03/21/18 19:42 19:42 21:52 WBC RBC Hgb Hct MCV MCH MCHC RDW Plt Count MPV Neut % (Auto) Lymph % (Auto) Ciales % (Auto) Eos % (Auto) Baso % (Auto) Neut # (Auto) Lymph # (Auto) Ciales # (Auto) Eos # (Auto) Baso # (Auto) PT 12.1 INR 1.1 Sodium 139 Potassium 3.9 Chloride 102 Carbon Dioxide 31 H Anion Gap 10 BUN 26 H Creatinine 0.5 L Est GFR ( Amer) > 60 Est GFR (Non-Af Amer) > 60 POC Glucose (mg/dL) 98 Random Glucose 78 Calcium 9.5 Phosphorus 4.1 Magnesium 2.1 Total Bilirubin 0.3 AST 41 H D ALT 34 Alkaline Phosphatase 81 Total Protein 6.4 Albumin 3.6 Globulin 2.8 Albumin/Globulin Ratio 1.3 Attending/Attestation - Attestation I have personally seen and examined this patient.: Yes I have fully participated in the care of the patient.: Yes I have reviewed all pertinent clinical information: Yes Notes (Text): 03/22/18 02:10 Patient was seen and examined with resident Dr. Cline. History, physical, assessment and plan/orders were gone over with Dr. Cline. Spoke with ENT Dr. Hull and plan is for change of Trach morning 03/22/18. Plan was gone over with the patient. Spoke with Nurse Arias and instructed her to discontinue Peg Tube feedings at midnight. Vamshi Villela D.O.
[2018-03-21] MEDS ORDERED: Iodixanol 320 mg/ml 150 ml Bottle IV ONE (21:25)
[2018-03-22] MEDS ORDERED: Albuterol-Ipratrop 3 mg / 0.5 (3 ml) UD IH SCH
[2018-03-22] MEDS: Albuterol-Ipratrop 3 mg / 0.5 (3 ml) UD IH SCH ×5 (00:01→20:09)
[2018-03-22] MEDS ORDERED: ceFAZolin IV 1 gm in Dextrose 0 GM/0 ML BAG IVPB ONE (06:58)
[2018-03-22] MEDS ORDERED: Lidocaine/Epinephrine 1% 1:100000 10 ML IJ ONE (06:59)
[2018-03-22] MEDS: (Novolin R) Insulin Human Regular 100 units/ml vial SC SCH ×4 (07:33→22:30)
[2018-03-22 08:32] LABS: BASO % 0.6 % (0.0-2.0); EOS # 0.3 K/uL (0.0-0.7); EOS % 4.5 % (0.0-4.0); HEMOGLOBIN 11.2 g/dL (11.0-16.0); LYMPH # 1.3 K/uL (1.0-4.3); LYMPH % 21.1 % (20.0-40.0); MEAN CELL VOLUME 89.1 fL (81.0-99.0); MEAN CORPUSCULAR HEMOGLOBIN 30.9 pg (27.0-31.0); MEAN CORPUSCULAR HGB CONC 34.7 g/dL (33.0-37.0); MEAN PLATELET VOLUME 8.4 fL (7.2-11.7); MONO # 0.9 K/uL (0.0-0.8); MONO % 15.3 % (0.0-10.0); NEUT # 3.6 K/uL (1.8-7.0); NEUT % 58.5 % (50.0-75.0); RBC 3.61 Mil/uL (3.80-5.20); RED CELL DISTRIBUTION WIDTH 15.2 % (11.5-14.5); WHITE BLOOD COUNT 6.2 K/uL (4.8-10.8)
[2018-03-22 09:00] LABS: ALB/GLOB RATIO 1.2 (1.0-2.1); ALBUMIN 3.3 g/dL (3.5-5.0); ALT/SGPT 33 U/L (9-52); AST/SGOT 39 U/L (14-36); BLOOD UREA NITROGEN 25 mg/dL (7-17); CALCIUM 9.5 mg/dl (8.6-10.4); GFR NON-AFRICAN AMERICAN > 60
--- NOTE | 2018-03-22 09:37 | CP.PCM.PN ---
Subjective - Date & Time of Evaluation Date of Evaluation: 03/22/18 Time of Evaluation: 09:34 - Subjective Subjective: due to the fact that the patient may have granulation tissue or scarring in her trachea I do not feel safe changing her trach. I am reffering her to see Dr. Jeffers at [facility]. I called Dr. Jeffers and told her about the patient. I gave Dr. Jeffers the patient's daughters's phone number so they she can be contacted for an appointment. Dr. Jeffers's number is [phone]. I spoke to the pateint's daughter and the patient and informed them of the plan. Objective - Vital Signs/Intake and Output Vital Signs (last 24 hours): Temp Pulse Resp BP Pulse Ox 98.3 F 67 20 150/66 98 03/22/18 07:00 03/22/18 07:00 03/22/18 07:00 03/22/18 07:00 03/22/18 07:00 - Medications Medications: Current Medications Albuterol/Ipratropium (Duoneb 3 Mg/0.5 Mg (3 Ml) Ud) 3 ml IH RQ6 [facility] Last Admin: 03/22/18 02:55 Dose: 3 ml Amlodipine Besylate (Norvasc) 2.5 mg PEG DAILY [facility] Aspirin (Aspirin Chewable) 81 mg GT DAILY [facility] Carvedilol (Coreg) 3.125 mg GT BID [facility] Clopidogrel Bisulfate (Plavix) 75 mg GT DAILY [facility] Famotidine (Pepcid) 40 mg GT DAILY [facility] Home Med (Chlorhexidine Gluconate [Peridex]) 5 ml PO BID [facility] Cefepime HCl (Maxipime Iv 1 Gm Premix) 1 gm in 50 mls @ 100 mls/hr IVPB Q12 [facility] Insulin Detemir (Levemir) 10 unit SC DAILY [facility]1983 Insulin Human Regular (Novolin R) 0 unit SC ACHS [facility] PRN Reason: Protocol Last Admin: 03/22/18 07:33 Dose: Not Given Multivitamins/Vitamin C (Multi-Delyn Liquid) 5 ml PEG DAILY [facility] Rosuvastatin Calcium (Crestor) 10 mg PEG HS [facility] Vitamin A (Vitamin A & D Oint Ud Foilpak) 1 ea EXT DAILY [facility] - Labs Labs: 03/22/18 08:16 03/22/18 08:16 PT 12.1 SECONDS (9.7-12.2) 03/21/18 19:42 INR 1.1 03/21/18 19:42
[2018-03-22] MEDS ORDERED: DIMETHICONE TOP SCH (10:00)
[2018-03-22] MEDS ORDERED: CHLORHEXIDINE GLUCONATE PO SCH (10:00)
[2018-03-22] MEDS ORDERED: Sodium Chloride 0.9% 1,000 ML IV SCH (10:45)
[2018-03-22] MEDS: Cefepime IV 1 gm in Dextrose 1 GM/50 ML BAG IVPB SCH ×2 (10:52→22:46)
[2018-03-22] MEDS: Multiple Vitamins Oral Solution PEG SCH (10:57)
[2018-03-22] MEDS: Insulin Detemir 100 units/ml Vial (Levemir) SC SCH (10:58)
[2018-03-22] MEDS: Vitamins A & D Oint UD Foilpak EXT SCH (11:00)
[2018-03-22] MEDS ORDERED: Sodium Chloride 0.9% 250 ML IV ONE (11:06)
[2018-03-22] MEDS: Sodium Chloride 0.9% 1,000 ML IV SCH ×2 (12:20→22:46)
--- NOTE | 2018-03-22 13:08 | CP.PCM.PN ---
Addendum entered and electronically signed by Herve Dang DO 03/22/18 19:41 : PGY-[address] Ortiz Appropriate [place] [place] Dr. Duran's office tomorrow morning Original Note: <Herve Dang - Last Filed: 03/22/18 17:52> Subjective - Date & Time of Evaluation Date of Evaluation: 03/22/18 Time of Evaluation: 13:06 - Subjective Subjective: Pt seen and examined at bedside. Patient appears comfortable, not complaining of any issues. I spoke with Dr. Hull does not want to replace trach tube due to granulation tissue which may cause airway compromise. He would like to have patient get procedure as outpatient with a laryngeal surgeon. Dr. Ortiz spoke with Dr. Dunlap regarding plan as patient has laryngeal cancer visible on CT. Current plan is for patient to be transported tomorrow for outpatient radiation treatment with Dr. Duran in [place] at 7:30. Pt will receive radiation treatment and then be transported back to [facility] before being discharged to have the tracheostomy procedure performed as outpatient. Patient agrees with the current plan. Objective - Vital Signs/Intake and Output Vital Signs (last 24 hours): Temp Pulse Resp BP Pulse Ox 98.3 F 84 20 140/70 98 03/22/18 07:00 03/22/18 10:57 03/22/18 07:00 03/22/18 10:57 03/22/18 07:00 - Medications Medications: Current Medications Albuterol/Ipratropium (Duoneb 3 Mg/0.5 Mg (3 Ml) Ud) 3 ml IH RQ6 [facility] Last Admin: 03/22/18 02:55 Dose: 3 ml Amlodipine Besylate (Norvasc) 2.5 mg PEG DAILY [facility] Last Admin: 03/22/18 10:57 Dose: 2.5 mg Aspirin (Aspirin Chewable) 81 mg GT DAILY [facility] Last Admin: 03/22/18 10:57 Dose: 81 mg Carvedilol (Coreg) 3.125 mg GT BID [facility] Last Admin: 03/22/18 10:57 Dose: 3.125 mg Clopidogrel Bisulfate (Plavix) 75 mg GT DAILY [facility] Last Admin: 03/22/18 10:57 Dose: 75 mg Famotidine (Pepcid) 40 mg GT DAILY [facility] Last Admin: 03/22/18 10:57 Dose: 40 mg Cefepime HCl (Maxipime Iv 1 Gm Premix) 1 gm in 50 mls @ 100 mls/hr IVPB Q12 [facility] Last Admin: 03/22/18 10:52 Dose: 100 mls/hr Sodium Chloride (Sodium Chloride 0.9%) 1,000 mls @ 100 mls/hr IV .Q10H [facility] Last Admin: 03/22/18 12:20 Dose: 100 mls/hr Insulin Detemir (Levemir) 10 unit SC DAILY [facility] Last Admin: 03/22/18 10:58 Dose: Not Given Insulin Human Regular (Novolin R) 0 unit SC ACHS [facility] PRN Reason: Protocol Last Admin: 03/22/18 07:33 Dose: Not Given Multivitamins/Vitamin C (Multi-Delyn Liquid) 5 ml PEG DAILY [facility] Last Admin: 03/22/18 10:57 Dose: 5 ml Rosuvastatin Calcium (Crestor) 10 mg PEG HS [facility] Vitamin A (Vitamin A & D Oint Ud Foilpak) 1 ea EXT DAILY [facility] Last Admin: 03/22/18 11:00 Dose: 1 ea - Labs Labs: 03/22/18 08:16 03/22/18 08:16 PT 12.1 SECONDS (9.7-12.2) 03/21/18 19:42 INR 1.1 03/21/18 19:42 - Constitutional Appears: No Acute Distress - Head Exam Head Exam: ATRAUMATIC, NORMAL INSPECTION - Eye Exam Eye Exam: EOMI Pupil Exam: NORMAL ACCOMODATION, PERRL - ENT Exam ENT Exam: Mucous Membranes Moist. absent: Mucous Membranes Dry Additional comments: +Trach in place; + moderate clear secretions noticeable - Neck Exam Additional comments: +trach in place - Respiratory Exam Respiratory Exam: absent: Accessory Muscle Use, Decreased Breath Sounds Additional comments: +On trach; Clear breath sounds at bases, gurgling audible 2/2 secretions at apices - Cardiovascular Exam Cardiovascular Exam: REGULAR RHYTHM, +S1, +S2 - GI/Abdominal Exam GI & Abdominal Exam: Soft, Normal Bowel Sounds. absent: Distended, Firm, Tenderness, Diminished Bowel Sounds Additional comments: +Peg tube in place, surrounding areas dry - Extremities Exam Extremities Exam: Normal Capillary Refill, Normal Inspection. absent: Joint Swelling - Neurological Exam Neurological Exam: Alert, Awake, Oriented x3 - Skin Skin Exam: Dry, Normal Color. absent: Abrasion Assessment and Plan - Assessment and Plan (Free Text) Assessment: Tracheostomy malfunction ENT consulted, Dr. Hull * Dr. Hull would like to have patient done as outpatient with a laryngeal surgeon due to granulation tissue seen on CT causing possible airway compromise during procedure. CXR: "tracheostomy tube projects to the right of midline which may be due to patient positioning. Repeat study is recommended." Neck CT w/: pending official report Chest CT w/o: pending official report * Chest CT was originally ordered with Neck CT but production technologist decided to discontinue Chest CT and thought that it was ok to just extend neck CT to cover the upper lobes of lungs. This was discovered around approximately 10:45pm while reviewing films. CT was call and informed that this was not the case and they needed to take patient back for CT of chest. hx of emergent Tracheostomy placed on 11/15/17 Needs continuous tracheostomy care Laryngeal cancer Hem/Onc consulted, Dr. 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 Dunlap recommends patient to see Dr. Duran radiation oncologist as outpatient prior to being discharge or having tracheostomy procedure. Patient will be transported to Dr. Duran's office tomorrow for possible radiation treatment of laryngeal CA. Pt to be brought back to [facility] before discharge to have trach procedure done as outpatient. Neck CT w/: pending official report URI Previously diagnosed Patient was started on Cefepime 1gm IVPB q12h (started on 03/17, end date 03/27) * Will continue abx treatment as previously prescribed. History of Diabetes mellitus Pt made NPO ISS Levemir 10u SC daily Hypoglycemia protocol Insulin held this morning for glucose 67 due to patient not receiving tube feeds. .5 amp D50 ordered for tomorrow Accuchecks Continue to monitor History of COPD Former heavy smoker (60 pack-years) Duonebs 3mL INH q6h History of CAD Medications: * Aspirin 81mg PO daily * Plavix 75mg PO daily History of HTN Medications: * Coreg 3.125mg PO BID * Norvasc 2.5mg PO daily Continue to monitor Prophylaxis: Pepcid 40mg po daily VTE ppx contraindicated due to potential operative procedure SCDs Multivitamin liquid Peridex mouth wash DNR/DNI <Kanu Ortiz - Last Filed: 03/24/18 19:18> Objective - Vital Signs/Intake and Output Vital Signs (last 24 hours): Temp Pulse Resp BP Pulse Ox 98.6 F 65 20 150/73 98 03/23/18 15:00 03/23/18 15:00 03/23/18 15:00 03/23/18 17:52 03/23/18 15:00 - Labs Labs: 03/22/18 08:16 03/22/18 08:16 PT 12.1 SECONDS (9.7-12.2) 03/21/18 19:42 INR 1.1 03/21/18 19:42 Attending/Attestation - Attestation I have personally seen and examined this patient.: Yes I have fully participated in the care of the patient.: Yes I have reviewed all pertinent clinical information, including history, physical exam and plan: Yes Notes (Text): Seen and examined,no complain,Dr villalpando recommend out pt ENT evaluation by Dr Vogt Assessment and the plan discussed with the resident and I agree with the documentation
--- NOTE | 2018-03-22 13:32 | RAD ---
Chest x-ray single frontal view History: Preadmission. Comparison: 03/09/2018 Findings: Tracheostomy tube projects to the right of midline which may be related to patient positioning. Repeat study is recommended. Left axillary midline in place. Biapical pleural thickening with upper lobe granulomatous changes. Scattered nodular densities in the upper to mid lung zones. Top normal heart size. Degenerative changes in the spine. Tubing projects over the mid abdomen. Impression: Tracheostomy tube projects to the right of midline which may be related to patient positioning. Repeat study is recommended. Left axillary midline in place. Biapical pleural thickening with upper lobe granulomatous changes. Scattered nodular densities in the upper to mid lung zones. Top normal heart size. Degenerative changes in the spine. Tubing projects over the mid abdomen.
--- NOTE | 2018-03-22 13:38 | CT ---
Date of service: 03/21/2018 PROCEDURE: CT NECK WITH CONTRAST HISTORY: extension of laryngeal mass/evidence of aspiration COMPARISON: Comparison is made with the previous CT of the neck with contrast dated 10/11/2017 TECHNIQUE: CT of the neck with intravenous contrast. Coronal and sagittal reformats generated. Intravenous contrast dose: 100 mL of Visipaque 320 intravenously. Radiation dose: DLP 532.63 mGy-cm This CT exam was performed using one or more of the following dose reduction techniques: Automated exposure control, adjustment of the mA and/or kV according to patient size, and/or use of iterative reconstruction technique. FINDINGS: NASOPHARYNX: Mild mucosal thickening without evidence of discrete mass. SUPRAHYOID NECK: Heterogeneous enhancing mass lesion extending from the lower portion of the oropharynx above the level of the hyoid bone and extending inferiorly to the larynx. INFRAHYOID NECK: Large heterogeneous enhancing mass lesion in the mid and upper portion of the larynx involving the true and false vocal cords and extending to the oropharynx associated with complete obstruction of the upper airway and tumor infiltration in the palatine tonsil, epiglottic and aryepiglottic folds as well as in the adjacent oral pharynx and larynx soft tissue. Partial destruction of the thyroid cartilage is also noted. The mass has significantly increased in size since the previous exam. MASS: Large heterogeneous enhancing mass lesion extending from the base of the tongue/ oropharynx to the level of the true vocal cord has increased in size since the previous exam. GLANDS: Heterogeneous enhancing nodule noted in the bilateral parotid gland left more than right likely represent metastasis in the parotid lymph nodes. The submandibular salivary glands are mildly enlarged without evidence of discrete mass. The thyroid gland is mildly enlarged without evidence of discrete mass. LYMPH NODES: There are multiple necrotic lymphadenopathy in the mid and upper neck consistent with metastasis from the laryngeal/subglottic mass which have increased in size and number since the previous exam. CERVICAL SPINE: No fracture or focal lesion. VASCULAR STRUCTURES: Unremarkable. OTHER FINDINGS: The patient is status post left colostomy. Moderate to severe emphysema at the visualized portion of the lungs is again noted. The visualized portion of the thoracic aorta demonstrates mild dilate a lawson of the ow aorta associated with moderate to severe atherosclerotic disease IMPRESSION: Interval significant increase in the size of heterogeneous enhancing mass lesion extending from the tongue base and oropharynx to the level of the true vocal cord since the previous exam. Interval worsening of bilateral cervical necrotic lymphadenopathy consistent with metastasis since the previous study. Complete obstruction of the airway above the tracheostomy tube. Preliminary report was submitted by [facility].
--- NOTE | 2018-03-22 15:43 | CT ---
Date of service: 03/22/2018 PROCEDURE: CT Chest without contrast HISTORY: evidence of aspiration/mets COMPARISON: 01/10/2018 TECHNIQUE: Contiguous axial images were obtained through the chest without intravenous contrast enhancement. Sagittal and coronal reconstructions were performed. Radiation dose (DLP): 503.51 mGy-cm. This CT exam was performed using one or more of the following dose reduction techniques: Automated exposure control, adjustment of the mA and/or kV according to patient size, and/or use of iterative reconstruction technique. FINDINGS: LUNGS: No infiltrate. Mild centrilobular pulmonary emphysema. Two nodules immediately adjacent to 1 another, measuring 5 mm and 6 mm, respectively. These appear slightly more prominent than on prior CT examination of 01/10/2018 though this may be due to slice registration artifact. There is a new 12 mm nodule in the right lower lobe seen on series 3, image 63. This may be infectious, inflammatory or neoplastic in origin. Consider metastatic origin from known neck mass. Multiple small nodules at extreme left lung base, up to 6 mm. No other pulmonary mass is identified elsewhere. MEDIASTINUM: Unremarkable thoracic aorta. No aneurysm. Normal-sized heart. Coronary arterial calcification. Trace pericardial effusion common nonspecific. Main pulmonary artery unremarkable. No vascular congestion. No lymphadenopathy. Tracheostomy noted. The tip of the tracheostomy 6 approximately 2.3 cm above the tracheal jayme. PLEURA: No pleural fluid. No pneumothorax. BONES: No fracture. No destructive lesion. UPPER ABDOMEN: Excreted contrast in right renal collecting system as result of contrast-enhanced CT of the neck from the prior day. Right upper pole renal cortical cyst only partially included in this examination. OTHER FINDINGS: Supraglottic soft tissue mass. Please see report of CT neck from 03/21/2018. IMPRESSION: No acute infiltrate. Slight increased prominence of 2 nodules adjacent to 1 another in the left upper lobe as compared to 01/10/2018. New 12 mm nodule in the right lower lobe since prior examination. Multiple small nodules in left lower lobe adjacent to left hemidiaphragm. Concerning for metastatic disease though infectious or inflammatory etiologies must be considered. Supraglottic neck mass. Please see report of CT neck from prior day. Mild centrilobular pulmonary emphysema. Tracheostomy. Coronary arterial calcification. The preliminary findings for this examination were reported by [facility] at 10:07 a.m. on 03/22/2018. There is concurrence of this report with the preliminary findings.
[2018-03-22] MEDS ORDERED: Dextrose 50% SYRINGE Inj (50 ml) IV STA (17:23)
[2018-03-22] MEDS ORDERED: Iohexol 350mg/ml 100 ML ONE (19:20)
--- NOTE | 2018-03-22 19:56 | CON ---
Copied To: Ruslan Hull MD Attending MD: Ruslan Hull MD DATE: 03/22/2018 REASON FOR CONSULTATION: Possible trach change. HISTORY OF PRESENT ILLNESS: This is a 72-year-old female, status post awake emergency trach, who had a trach changed at an outside facility. The new trach does not have a nasal cannula and the patient would like to have the trach changed which does have a nasal cannula since this is her only airway, so it can be maintained. CAT scan of the neck was taken, which shows possible stenosis plus granulation tissue at the superior portion of the trach stoma overlying the trach tube itself. At this point, I do not feel safe to changing the trach due to the fact that she can get bleeding once the trach comes out. The main idea was to put another one in. I am recommending the patient to be seen at [facility] by Dr. Denise Jeffers, , for further evaluation to see if the trach can be changed. Ruslan Hull MD
--- NOTE | 2018-03-22 21:08 | CP.PCM.CON ---
History of Present Illness - History of Present Illness History of Present Illness: 72 year old female with a history of tobacco abuse, CAD, COPD, HTN, locally advanced squamous cell carcinoma of the larynx with bilateral cervical lymphadenopathy s/p tracheostomy admitted from rehab with shortness of breath and tracheostomy replacement. She had not been treated in the past for her laryngeal as she was felt too frail for treatment. Her daughter notes to improvement in her weight and energy level at rehab. Past medical history: tobacco abuse, CAD, COPD, HTN, locally advanced squamous cell carcinoma of the larynx with bilateral cervical lymphadenopathy s/p tracheostomy Past surgical history: Feeding tube, tracheostomy Family history: Denies hematologic and oncologic problems Social history: Former tobacco abuse, denies alcohol, and illicit drug use. Allergies: NKA Review of systems: All remaining review of systems including HEENT, cardiovascular, respiratory, gastrointestinal, genitourinary, musculoskeletal, dermatologic, neurologic, and psychiatric are negative unless mentioned in the HPI. Past Patient History - Infectious Disease Hx of Infectious Diseases: None - Past Medical History & Family History Past Medical History?: Yes - Past Social History Smoking Status: Former Smoker - CARDIAC Hx Cardiac Disorders: Yes Hx Congestive Heart Failure: Yes Hx Hypercholesterolemia: Yes Hx Hypertension: Yes - PULMONARY Hx Respiratory Disorders: Yes Hx Chronic Obstructive Pulmonary Disease (COPD): Yes - NEUROLOGICAL Hx Neurological Disorder: No - HEENT Hx HEENT Problems: Yes Other/Comment: HX: RIGHT JUGULARY LYMPH NODE BX.(10/12/17). HX: VOCAL CORD POLYP - RENAL Hx Chronic Kidney Disease: No Hx Kidney Stones: No - ENDOCRINE/METABOLIC Hx Endocrine Disorders: Yes Hx Hypothyroidism: Yes - HEMATOLOGICAL/ONCOLOGICAL Hx Blood Disorders: Yes Hx Cancer: Yes (Larynx) Hx Shingles: Yes - INTEGUMENTARY Hx Dermatological Problems: No - MUSCULOSKELETAL/RHEUMATOLOGICAL Hx Falls: No - GASTROINTESTINAL Hx Gastrointestinal Disorders: No - GENITOURINARY/GYNECOLOGICAL Hx Genitourinary Disorders: No - PSYCHIATRIC Hx Substance Use: No - SURGICAL HISTORY Hx Surgeries: Yes Hx Appendectomy: Yes - ANESTHESIA Hx Anesthesia: Yes Hx Anesthesia Reactions: No Hx Malignant Hyperthermia: No Has any member of the family had a problem w/ anesthesia?: No Meds Allergies/Adverse Reactions: Allergies Allergy/AdvReac Type Severity Reaction Status Date / Time No Known Allergies Allergy Verified 12/18/17 18:15 - Medications Medications: Current Medications Albuterol/Ipratropium (Duoneb 3 Mg/0.5 Mg (3 Ml) Ud) 3 ml IH RQ6 [facility] Last Admin: 03/22/18 20:09 Dose: 3 ml Amlodipine Besylate (Norvasc) 2.5 mg PEG DAILY [facility] Last Admin: 03/22/18 10:57 Dose: 2.5 mg Aspirin (Aspirin Chewable) 81 mg GT DAILY [facility] Last Admin: 03/22/18 10:57 Dose: 81 mg Carvedilol (Coreg) 3.125 mg GT BID [facility] Last Admin: 03/22/18 17:48 Dose: 3.125 mg Clopidogrel Bisulfate (Plavix) 75 mg GT DAILY [facility] Last Admin: 03/22/18 10:57 Dose: 75 mg Famotidine (Pepcid) 40 mg GT DAILY [facility] Last Admin: 03/22/18 10:57 Dose: 40 mg Cefepime HCl (Maxipime Iv 1 Gm Premix) 1 gm in 50 mls @ 100 mls/hr IVPB Q12 [facility] Last Admin: 03/22/18 10:52 Dose: 100 mls/hr Sodium Chloride (Sodium Chloride 0.9%) 1,000 mls @ 100 mls/hr IV .Q10H [facility] Last Admin: 03/22/18 12:20 Dose: 100 mls/hr Insulin Detemir (Levemir) 10 unit SC DAILY [facility] Last Admin: 03/22/18 10:58 Dose: Not Given Insulin Human Regular (Novolin R) 0 unit SC ACHS [facility] PRN Reason: Protocol Last Admin: 03/22/18 17:10 Dose: Not Given Multivitamins/Vitamin C (Multi-Delyn Liquid) 5 ml PEG DAILY [facility] Last Admin: 03/22/18 10:57 Dose: 5 ml Rosuvastatin Calcium (Crestor) 10 mg PEG HS [facility] Vitamin A (Vitamin A & D Oint Ud Foilpak) 1 ea EXT DAILY [facility] Last Admin: 03/22/18 11:00 Dose: 1 ea Physical Exam - Head Exam Head Exam: ATRAUMATIC - Eye Exam Eye Exam: Normal appearance - ENT Exam ENT Exam: Mucous Membranes Dry - Respiratory Exam Respiratory Exam: NORMAL BREATHING PATTERN - Cardiovascular Exam Cardiovascular Exam: +S1, +S2 - GI/Abdominal Exam GI & Abdominal Exam: Normal Bowel Sounds Results - Vital Signs Recent Vital Signs: Last Vital Signs Temp 98 F 03/22/18 16:14 Pulse 60 03/22/18 16:14 Resp 20 03/22/18 16:14 BP 144/72 03/22/18 16:14 Pulse Ox 95 03/22/18 16:14 - Labs Result Diagrams: 03/22/18 08:16 03/22/18 08:16 Labs: Laboratory Results - last 24 hr 03/21/18 03/22/18 03/22/18 21:52 06:20 08:16 WBC 6.2 RBC 3.61 L Hgb 11.2 Hct 32.2 L MCV 89.1 MCH 30.9 MCHC 34.7 RDW 15.2 H Plt Count 219 MPV 8.4 Neut % (Auto) 58.5 Lymph % (Auto) 21.1 Wolfe % (Auto) 15.3 H Eos % (Auto) 4.5 H Baso % (Auto) 0.6 Neut # (Auto) 3.6 Lymph # (Auto) 1.3 Wolfe # (Auto) 0.9 H Eos # (Auto) 0.3 Baso # (Auto) 0.0 Sodium Potassium Chloride Carbon Dioxide Anion Gap BUN Creatinine Est GFR ( Amer) Est GFR (Non-Af Amer) POC Glucose (mg/dL) 98 87 Random Glucose Calcium Total Bilirubin AST ALT Alkaline Phosphatase Total Protein Albumin Globulin Albumin/Globulin Ratio 03/22/18 03/22/18 03/22/18 08:16 11:01 16:47 WBC RBC Hgb Hct MCV MCH MCHC RDW Plt Count MPV Neut % (Auto) Lymph % (Auto) Wolfe % (Auto) Eos % (Auto) Baso % (Auto) Neut # (Auto) Lymph # (Auto) Wolfe # (Auto) Eos # (Auto) Baso # (Auto) Sodium 138 Potassium 3.8 Chloride 101 Carbon Dioxide 29 Anion Gap 12 BUN 25 H Creatinine 0.5 L Est GFR ( Amer) > 60 Est GFR (Non-Af Amer) > 60 POC Glucose (mg/dL) 92 81 Random Glucose 83 Calcium 9.5 Total Bilirubin 0.4 AST 39 H ALT 33 Alkaline Phosphatase 76 Total Protein 6.0 L Albumin 3.3 L Globulin 2.7 Albumin/Globulin Ratio 1.2 Assessment & Plan (1) Laryngeal cancer Assessment and Plan: for repeat imaging for staging to see radiation oncology Dr. Duran tomorrow further treatment recommendations based on staging Status: Acute (2) Anemia Assessment and Plan: anemia of chronic disease Thank you for this interesting consult. Status: Chronic
[2018-03-23] MEDS: Albuterol-Ipratrop 3 mg / 0.5 (3 ml) UD IH SCH ×3 (01:21→13:21)
--- NOTE | 2018-03-23 07:26 | CP.PCM.PN ---
Subjective - Date & Time of Evaluation Date of Evaluation: 03/23/18 Time of Evaluation: 07:25 Objective - Vital Signs/Intake and Output Vital Signs (last 24 hours): Temp Pulse Resp BP Pulse Ox 98.3 F 73 20 132/76 97 03/23/18 00:01 03/23/18 00:01 03/23/18 00:01 03/23/18 00:01 03/23/18 00:01 - Medications Medications: Current Medications Albuterol/Ipratropium (Duoneb 3 Mg/0.5 Mg (3 Ml) Ud) 3 ml IH RQ6 [facility] Last Admin: 03/23/18 01:21 Dose: 3 ml Amlodipine Besylate (Norvasc) 2.5 mg PEG DAILY [facility] Last Admin: 03/22/18 10:57 Dose: 2.5 mg Aspirin (Aspirin Chewable) 81 mg GT DAILY [facility] Last Admin: 03/22/18 10:57 Dose: 81 mg Carvedilol (Coreg) 3.125 mg GT BID [facility] Last Admin: 03/22/18 17:48 Dose: 3.125 mg Clopidogrel Bisulfate (Plavix) 75 mg GT DAILY [facility] Last Admin: 03/22/18 10:57 Dose: 75 mg Famotidine (Pepcid) 40 mg GT DAILY [facility] Last Admin: 03/22/18 10:57 Dose: 40 mg Cefepime HCl (Maxipime Iv 1 Gm Premix) 1 gm in 50 mls @ 100 mls/hr IVPB Q12 [facility] Last Admin: 03/22/18 22:46 Dose: 100 mls/hr Sodium Chloride (Sodium Chloride 0.9%) 1,000 mls @ 100 mls/hr IV .Q10H [facility] Last Admin: 03/22/18 22:46 Dose: 100 mls/hr Insulin Detemir (Levemir) 10 unit SC DAILY [facility] Last Admin: 03/22/18 10:58 Dose: Not Given Insulin Human Regular (Novolin R) 0 unit SC ACHS [facility] PRN Reason: Protocol Last Admin: 03/22/18 22:30 Dose: Not Given Multivitamins/Vitamin C (Multi-Delyn Liquid) 5 ml PEG DAILY [facility] Last Admin: 03/22/18 10:57 Dose: 5 ml Rosuvastatin Calcium (Crestor) 10 mg PEG HS [facility] Last Admin: 03/22/18 22:46 Dose: 10 mg Vitamin A (Vitamin A & D Oint Ud Foilpak) 1 ea EXT DAILY [facility] Last Admin: 03/22/18 11:00 Dose: 1 ea - Labs Labs: 03/22/18 08:16 03/22/18 08:16 PT 12.1 SECONDS (9.7-12.2) 03/21/18 19:42 INR 1.1 03/21/18 19:42
[2018-03-23] MEDS: (Novolin R) Insulin Human Regular 100 units/ml vial SC SCH ×3 (07:30→17:11)
[2018-03-23] MEDS: Sodium Chloride 0.9% 1,000 ML IV SCH ×2 (08:20→18:58)
[2018-03-23] MEDS: Insulin Detemir 100 units/ml Vial (Levemir) SC SCH (09:48)
[2018-03-23] MEDS: Multiple Vitamins Oral Solution PEG SCH (09:48)
[2018-03-23] MEDS: Cefepime IV 1 gm in Dextrose 1 GM/50 ML BAG IVPB SCH (09:48)
[2018-03-23] MEDS: Vitamins A & D Oint UD Foilpak EXT SCH (09:51)
--- NOTE | 2018-03-23 10:51 | CP.PCM.CON ---
History of Present Illness - History of Present Illness History of Present Illness: Ms Carroll is a 72 year old female with a locally advanced head and neck cancer. She was initially diagnosed in September of 2017. She then presented to the emergency room at [facility] with a neck mass, 15lb weight loss and hoarseness. She was found to have airway compromise. A CT of the neck on October 11, 2017 revealed a right level II node measuring 3 x 2.8 x 2.3cm. In the left neck, there was a mass measuring 4.4 x 1.8 x 1.8cm. There were partially necrotic post-cervical space nodes inferior to the level II region. There was a bulky epiglottic mass with involvement of the aryepiglottic folds. There was circumferential extension above the true cords and possible inferior extension of the true cords. 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 She saw Dr Sánchez at the time. He ordered a PET scan on October 27, 2017 at [facility] in [facility]. The PET revealed hypermetabolic uptake in the epiglottis with extension to the true cords. There was bilateral cervical adenopathy with hypermetabolic uptake with a SUV of 7.3. She was then supposed to get a port, however she did not get that because there at the time of the procedure, the surgeon mentioned also getting a trach. Her family halted going forward with the port. She then unfortunately admitted to [facility] again on November 15, 2017 due to acute worsening breathing issues resulting in an emergency tracheostomy. Due to sepsis, she was also in the ICU at that time. She did not have any definitive treatment for her cancer because of her other medical issues and frail state. She improved and then went to a rehab facility, however she came back again in November 2017 due to pneumonia with a tracheostomy change. After that, she clinically improved. She gained weight since she was in rehab. However, she was admitted again in December 2017 due to an infection. She improved, and then was discharged to LTAC for four weeks. She was then transferred to [facility]. Most recently, on March 09, 2018, she was readmitted to [facility] for an exchange of her trach, however Dr Hull evaluated and felt that it would not feasible to exchange it at [facility] and is recommending that she got to a tertiary center. She had a repeat CT of the neck and chest on March 21, 2018 which revealed interval increase in the mass lesion extending to the dai of tongue and oropharynx to the level of the true cord. There was worsening cervical adenopathy. There were heterogeneous nodules extending to bilateral parotid gland on the left more likely than right. There were multiple nodules in the mid and upper neck. There was complete obstruction above the tracheostomy. A CT of the chest revealed slight increase in two prominent nodules in the left upper lobe. There was a new 1.2cm right upper lobe nodules as well worrisome for possible metastases. We are asked to see the patient about definitive treatment since her performance status has improved and for local control. Review of Systems - Respiratory Respiratory: Dyspnea Past Patient History - Infectious Disease Hx of Infectious Diseases: None - Past Medical History & Family History Past Medical History?: Yes - Past Social History Smoking Status: Former Smoker Alcohol: None Home Situation {Lives}: Senior Living - CARDIAC Hx Cardiac Disorders: Yes Hx Congestive Heart Failure: Yes Hx Hypercholesterolemia: Yes Hx Hypertension: Yes - PULMONARY Hx Respiratory Disorders: Yes Hx Chronic Obstructive Pulmonary Disease (COPD): Yes - NEUROLOGICAL Hx Neurological Disorder: No - HEENT Hx HEENT Problems: Yes Other/Comment: HX: RIGHT JUGULARY LYMPH NODE BX.(10/12/17). HX: VOCAL CORD POLYP - RENAL Hx Chronic Kidney Disease: No Hx Kidney Stones: No - ENDOCRINE/METABOLIC Hx Endocrine Disorders: Yes Hx Hypothyroidism: Yes - HEMATOLOGICAL/ONCOLOGICAL Hx Blood Disorders: Yes Hx Cancer: Yes (Larynx) Hx Shingles: Yes - INTEGUMENTARY Hx Dermatological Problems: No - MUSCULOSKELETAL/RHEUMATOLOGICAL Hx Falls: No - GASTROINTESTINAL Hx Gastrointestinal Disorders: No - GENITOURINARY/GYNECOLOGICAL Hx Genitourinary Disorders: No - PSYCHIATRIC Hx Substance Use: No - SURGICAL HISTORY Hx Surgeries: Yes Hx Appendectomy: Yes - ANESTHESIA Hx Anesthesia: Yes Hx Anesthesia Reactions: No Hx Malignant Hyperthermia: No Has any member of the family had a problem w/ anesthesia?: No Meds Allergies/Adverse Reactions: Allergies Allergy/AdvReac Type Severity Reaction Status Date / Time No Known Allergies Allergy Verified 12/18/17 18:15 - Medications Medications: Current Medications Albuterol/Ipratropium (Duoneb 3 Mg/0.5 Mg (3 Ml) Ud) 3 ml IH RQ6 [facility] Last Admin: 03/23/18 07:59 Dose: 3 ml Amlodipine Besylate (Norvasc) 2.5 mg PEG DAILY [facility] Last Admin: 03/23/18 09:48 Dose: Not Given Aspirin (Aspirin Chewable) 81 mg GT DAILY [facility] Last Admin: 03/23/18 09:47 Dose: Not Given Carvedilol (Coreg) 3.125 mg GT BID [facility] Last Admin: 03/23/18 09:47 Dose: Not Given Clopidogrel Bisulfate (Plavix) 75 mg GT DAILY [facility] Last Admin: 03/23/18 09:49 Dose: Not Given Famotidine (Pepcid) 40 mg GT DAILY [facility] Last Admin: 03/23/18 09:49 Dose: Not Given Cefepime HCl (Maxipime Iv 1 Gm Premix) 1 gm in 50 mls @ 100 mls/hr IVPB Q12 [facility] Last Admin: 03/23/18 09:48 Dose: Not Given Sodium Chloride (Sodium Chloride 0.9%) 1,000 mls @ 100 mls/hr IV .Q10H [facility] Last Admin: 03/23/18 08:20 Dose: Not Given Insulin Detemir (Levemir) 10 unit SC DAILY [facility] Last Admin: 03/23/18 09:48 Dose: Not Given Insulin Human Regular (Novolin R) 0 unit SC ACHS [facility] PRN Reason: Protocol Last Admin: 03/23/18 07:30 Dose: Not Given Multivitamins/Vitamin C (Multi-Delyn Liquid) 5 ml PEG DAILY [facility] Last Admin: 03/23/18 09:48 Dose: Not Given Rosuvastatin Calcium (Crestor) 10 mg PEG HS [facility] Last Admin: 03/22/18 22:46 Dose: 10 mg Vitamin A (Vitamin A & D Oint Ud Foilpak) 1 ea EXT DAILY [facility] Last Admin: 03/23/18 09:51 Dose: Not Given Physical Exam - Head Exam Head Exam: NORMAL INSPECTION - Eye Exam Eye Exam: EOMI - Neck Exam Neck exam: Positive for: Lymphadenopathy - Respiratory Exam Respiratory Exam: Clear to Auscultation Bilateral - Cardiovascular Exam Cardiovascular Exam: REGULAR RHYTHM - GI/Abdominal Exam GI & Abdominal Exam: Normal Bowel Sounds - Neurological Exam Neurological exam: CN II-XII Intact, Oriented x3 Results - Vital Signs Recent Vital Signs: Last Vital Signs Temp 98.2 F 03/23/18 07:00 Pulse 87 03/23/18 07:00 Resp 20 08/29/18 07:00 BP 155/81 H 03/23/18 07:00 Pulse Ox 98 03/23/18 07:00 - Labs Result Diagrams: 03/22/18 08:16 03/22/18 08:16 Labs: Laboratory Results - last 24 hr 03/22/18 03/22/18 03/22/18 11:01 16:47 21:19 POC Glucose (mg/dL) 92 81 79 Assessment & Plan - Assessment and Plan (Free Text) Assessment: Ms Carroll is a 72 year old female with a locally advanced head and neck cancer. We would concur that she would benefit from concurrent chemoradiation. We spoke to her and her daughter about the radiation therapy including the risks and benefits. Ideally, we would like to have a PET scan, however due to her hospitalization, she currently cannot have a PET. She did have a diagnostic CT scan which provides good resolution of her disease. We will be using that imaging study for planning purposes. She is interested in proceeding. She had a simulation today. We will coordinate her chemoradiation.
--- NOTE | 2018-03-23 10:52 | CT ---
Date of service: 03/22/2018 PROCEDURE: CT Chest, Abdomen and Pelvis with intravenous contrast HISTORY: laryngeal cancer staging COMPARISON: None available. TECHNIQUE: Helical CT of the chest, abdomen and pelvis is performed following intravenous contrast only, as requested. Reformatted datasets provided sagittal axial and coronal planes. IV dose administered: Visipaque 320, 100 cc Radiation dose: Total exam DLP = 616.75 mGy-cm. This CT exam was performed using one or more of the following dose reduction techniques: Automated exposure control, adjustment of the mA and/or kV according to patient size, and/or use of iterative reconstruction technique. FINDINGS: CT CHEST WITH CONTRAST: LUNGS: Biapical pulmonary fibrotic changes are mild however interstitial changes are somewhat increased at the apices suspicious for possible fibrosis, potentially on a chronic basis. Central airways appear clear and there are rare bolus scattered in the upper lobes. Underlying emphysema is suspected at the apices greater the bases. There is limited bilateral basilar dependent atelectasis there is no alveolitis bilaterally. There is a solitary pulmonary nodule at the right lower lobe identified image 60 series 4 measuring 1.2 x 1.0 cm without obvious calcification. There is borderline peripheral spiculation. No additional right-sided pulmonary nodules. At the left upper lobe image 51, there is a bilobed noncalcified nodule measuring 1.0 cm with a 0.5 cm noncalcified parenchymal nodule identified in the left upper lobe and image 58. No spiculated changes are associated. MEDIASTINUM: The thoracic inlet is remarkable 4-5 mm lucency at the lower portion right lobe thyroid gland. Normal caliber aorta and pulmonary arterial trunk. No aortic dissection. Normal size heart. Borderline pericardial thickening or effusion. LYMPH NODES: Unremarkable. PLEURA: Unremarkable. No pneumothorax. No pleural fluid. BONES: Unremarkable. OTHER FINDINGS: None. CT ABDOMEN AND PELVIS: LIVER: Mass. Unremarkable. No gross lesion or ductal dilatation. GALLBLADDER AND BILE DUCTS: Vicarious excretion of iodinated contrast material is identified with the gallbladder otherwise unremarkable as well as common bile duct. PANCREAS: Unremarkable. No gross lesion or ductal dilatation. SPLEEN: Unremarkable. ADRENALS: Unremarkable. No mass. KIDNEYS AND URETERS: Marked right renal atrophy is appreciated with low to intermediate exophytic off the midpole laterally measuring 2.4 x 2.7 cm and approximately 30 Hounsfield units. This may represent a hemorrhagic cyst density. However, noncontrast enhanced CT demonstrated the lesions to have approximately 20 Hounsfield density on 03/14/2018 12:40 a.m.. Consider follow-up MRI evaluation with without contrast as clinically warranted. There is small lucency seen the midpole right kidney anteriorly which is too small to characterize. Multiple lucencies seen scattered throughout the left kidney which too small to characterize only a matter of 3-4 mm greatest dimension with small cyst likely at the upper pole left kidney 9 mm greatest dimension. A chronic cortical infarct is seen at the lower pole left kidney. VASCULATURE: There is an infrarenal abdominal aortic aneurysm identified with extensive intra in intramural thrombus terminating at the bifurcation. It measures 5.0 x 4.0 cm greatest outer caliber with the inner lumen diameter is seen measuring 3.5 x 2.7 cm. Limited dilatation of the proximal bilateral common iliac arteries is seen measuring up to 1.7 cm at the right and 1.2 cm in the left. BOWEL: There is nonspecific gaseous distention of small and a few large bowel loops in the central abdomen is not felt to represent an obstruction and likely does not restrict reflect an ileus either. The gastrostomy tube is identified terminating at the distal gastric fundus lumen. Sigmoid diverticulosis is noted without diverticulitis. APPENDIX: Normal appendix. PERITONEUM: Unremarkable. No free fluid. No free air. LYMPH NODES: Unremarkable. No enlarged lymph nodes. BLADDER: Unremarkable. REPRODUCTIVE: Unremarkable. BONES: Limited compression fracture of L5 is appreciated with borderline anterior spondylolisthesis. OTHER FINDINGS: None. IMPRESSION: 1. Infrequent but multiple pulmonary nodules identified bilaterally with the dominant nodule identified at the right lower lobe as discussed above, measuring 1.2 cm greatest dimension with those at the left under 1 cm size.. Limited COPD changes are suspected. Follow-up nuclear PET-CT or tissue diagnosis to evaluate this right lower lobe lesion further. 2. No chest, abdomen or pelvic lymphadenopathy. 3. 2.7 cm exophytic lucency related to the midpole right kidney is indeterminate for complex cystic lesion or possible low-density solid lesion. Follow-up MRI is advised with without gadolinium if there is no contraindication for better characterization. The right kidney is markedly atrophic. Multiple tiny lucencies seen at the left kidney too small to characterize. No obstructive uropathy bilaterally. 4. Sigmoid diverticulosis without diverticulitis. 5. Other lesser findings as discussed above.
--- NOTE | 2018-03-23 14:27 | CARD ---
APPROVED REPORT Date of service: 03/21/2018 EKG Measurement Heart [id number] OR [id number] <Conclusion> Normal sinus rhythm Inferior infarct, age undetermined can not be excluded Abnormal ECG
[2018-03-23 15:40] VITALS: PULSE 65; RESP 20; TEMP 98.6; O2SAT 98
--- NOTE | 2018-03-23 17:29 | CP.PCM.CON ---
History of Present Illness - History of Present Illness History of Present Illness: reason for consultation: history of COPD, status post tracheostomy for laryngeal CA 72-year-old female with COPD, coronary artery disease, hypertension, laryngeal CA status post tracheostomy transferred from rehabilitation for shortness of breath and possible tracheostomy replacement. Patient was seen by ENT and recommended trach to be replaced at [facility]. patient was also seen by radiation oncology. pt had a repeat CT of the neck and chest on March 21, 2018 which revealed interval increase in the mass lesion extending to the dai of tongue and oropharynx to the level of the true cord. There was worsening cervical adenopathy. There were heterogeneous nodules extending to bilateral parotid gland on the left more likely than right. There were multiple nodules in the mid and upper neck. There was complete obstruction above the tracheostomy. A CT of the chest revealed slight increase in two prominent nodules in the left upper lobe. There was a new 1.2cm right upper lobe nodules as well worrisome for possible metastases. We are asked to see the patient about definitive treatment since her performance status has improved and for local control. Review of Systems - Review of Systems All systems: reviewed and no additional remarkable complaints except (shortness of breath) Past Patient History - Infectious Disease Hx of Infectious Diseases: None - Past Medical History & Family History Past Medical History?: Yes - Past Social History Smoking Status: Former Smoker Alcohol: None Home Situation {Lives}: Fdc - CARDIAC Hx Cardiac Disorders: Yes Hx Congestive Heart Failure: Yes Hx Hypercholesterolemia: Yes Hx Hypertension: Yes - PULMONARY Hx Respiratory Disorders: Yes Hx Chronic Obstructive Pulmonary Disease (COPD): Yes - NEUROLOGICAL Hx Neurological Disorder: No - HEENT Hx HEENT Problems: Yes Other/Comment: HX: RIGHT JUGULARY LYMPH NODE BX.(10/12/17). HX: VOCAL CORD POLYP - RENAL Hx Chronic Kidney Disease: No Hx Kidney Stones: No - ENDOCRINE/METABOLIC Hx Endocrine Disorders: Yes Hx Hypothyroidism: Yes - HEMATOLOGICAL/ONCOLOGICAL Hx Blood Disorders: Yes Hx Cancer: Yes (Larynx) Hx Shingles: Yes - INTEGUMENTARY Hx Dermatological Problems: No - MUSCULOSKELETAL/RHEUMATOLOGICAL Hx Falls: No - GASTROINTESTINAL Hx Gastrointestinal Disorders: No - GENITOURINARY/GYNECOLOGICAL Hx Genitourinary Disorders: No - PSYCHIATRIC Hx Substance Use: No - SURGICAL HISTORY Hx Surgeries: Yes Hx Appendectomy: Yes - ANESTHESIA Hx Anesthesia: Yes Hx Anesthesia Reactions: No Hx Malignant Hyperthermia: No Has any member of the family had a problem w/ anesthesia?: No Meds Allergies/Adverse Reactions: Allergies Allergy/AdvReac Type Severity Reaction Status Date / Time No Known Allergies Allergy Verified 12/18/17 18:15 - Medications Medications: Current Medications Albuterol/Ipratropium (Duoneb 3 Mg/0.5 Mg (3 Ml) Ud) 3 ml IH RQ6 [facility] Last Admin: 03/23/18 13:21 Dose: 3 ml Amlodipine Besylate (Norvasc) 2.5 mg PEG DAILY [facility] Last Admin: 03/23/18 09:48 Dose: Not Given Aspirin (Aspirin Chewable) 81 mg GT DAILY [facility] Last Admin: 03/23/18 09:47 Dose: Not Given Carvedilol (Coreg) 3.125 mg GT BID [facility] Last Admin: 03/23/18 09:47 Dose: Not Given Clopidogrel Bisulfate (Plavix) 75 mg GT DAILY [facility] Last Admin: 03/23/18 09:49 Dose: Not Given Famotidine (Pepcid) 40 mg GT DAILY [facility] Last Admin: 03/23/18 09:49 Dose: Not Given Cefepime HCl (Maxipime Iv 1 Gm Premix) 1 gm in 50 mls @ 100 mls/hr IVPB Q12 [facility] Last Admin: 03/23/18 09:48 Dose: Not Given Sodium Chloride (Sodium Chloride 0.9%) 1,000 mls @ 100 mls/hr IV .Q10H [facility] Last Admin: 03/23/18 08:20 Dose: Not Given Insulin Detemir (Levemir) 10 unit SC DAILY [facility] Last Admin: 03/23/18 09:48 Dose: Not Given Insulin Human Regular (Novolin R) 0 unit SC ACHS [facility] PRN Reason: Protocol Last Admin: 03/23/18 17:11 Dose: Not Given Multivitamins/Vitamin C (Multi-Delyn Liquid) 5 ml PEG DAILY [facility] Last Admin: 03/23/18 09:48 Dose: Not Given Rosuvastatin Calcium (Crestor) 10 mg PEG HS [facility] Last Admin: 03/22/18 22:46 Dose: 10 mg Vitamin A (Vitamin A & D Oint Ud Foilpak) 1 ea EXT DAILY [facility] Last Admin: 03/23/18 09:51 Dose: Not Given Physical Exam - Head Exam Head Exam: ATRAUMATIC, NORMOCEPHALIC - ENT Exam ENT Exam: Mucous Membranes Moist - Neck Exam Additional comments: status post tracheostomy - Respiratory Exam Respiratory Exam: Decreased Breath Sounds - Cardiovascular Exam Cardiovascular Exam: REGULAR RHYTHM Results - Vital Signs Recent Vital Signs: Last Vital Signs Temp 98.6 F 03/23/18 15:00 Pulse 65 03/23/18 15:00 Resp 20 03/23/18 15:00 BP 147/74 03/23/18 15:00 Pulse Ox 98 03/23/18 15:00 - Labs Result Diagrams: 03/22/18 08:16 03/22/18 08:16 Labs: Laboratory Results - last 24 hr 03/22/18 03/23/18 21:19 16:53 POC Glucose (mg/dL) 79 119 H Assessment & Plan (1) COPD (chronic obstructive pulmonary disease) Status: Acute Comment: nebulizer treatment and inhaled steroid (2) Laryngeal cancer Status: Acute Comment: patient seen by ENT and want the tracheostomy to be changed at [facility]. Patient is scheduled for radiation therapy as outpatient
[2018-03-23 17:53] VITALS: BP 150/73
--- NOTE | 2018-03-23 19:25 | CP.PCM.DIS ---
<Herve Dang - Last Filed: 03/23/18 19:22> Provider - Provider Date of Admission: 03/21/18 18:01 Attending physician: Vamshi Villela MD Time Spent in preparation of Discharge (in minutes): 45 Diagnosis - Discharge Diagnosis (1) Laryngeal squamous cell carcinoma Status: Chronic Hospital Course - Lab Results Lab Results: Most Recent Lab Values WBC 6.2 K/uL (4.8-10.8) 03/22/18 08:16 RBC 3.61 Mil/uL (3.80-5.20) L 03/22/18 08:16 Hgb 11.2 g/dL (11.0-16.0) 03/22/18 08:16 Hct 32.2 % (34.0-47.0) L 03/22/18 08:16 MCV 89.1 fL (81.0-99.0) 03/22/18 08:16 MCH 30.9 pg (27.0-31.0) 03/22/18 08:16 MCHC 34.7 g/dL (33.0-37.0) 03/22/18 08:16 RDW 15.2 % (11.5-14.5) H 03/22/18 08:16 Plt Count 219 K/uL (130-400) 03/22/18 08:16 MPV 8.4 fL (7.2-11.7) 03/22/18 08:16 Neut % (Auto) 58.5 % (50.0-75.0) 03/22/18 08:16 Lymph % (Auto) 21.1 % (20.0-40.0) 03/22/18 08:16 Mcdonald % (Auto) 15.3 % (0.0-10.0) H 03/22/18 08:16 Eos % (Auto) 4.5 % (0.0-4.0) H 03/22/18 08:16 Baso % (Auto) 0.6 % (0.0-2.0) 03/22/18 08:16 Neut # (Auto) 3.6 K/uL (1.8-7.0) 03/22/18 08:16 Lymph # (Auto) 1.3 K/uL (1.0-4.3) 03/22/18 08:16 Mcdonald # (Auto) 0.9 K/uL (0.0-0.8) H 03/22/18 08:16 Eos # (Auto) 0.3 K/uL (0.0-0.7) 03/22/18 08:16 Baso # (Auto) 0.0 K/uL (0.0-0.2) 03/22/18 08:16 PT 12.1 SECONDS (9.7-12.2) 03/21/18 19:42 INR 1.1 03/21/18 19:42 Sodium 138 mmol/L (132-148) 03/22/18 08:16 Potassium 3.8 mmol/L (3.6-5.2) 03/22/18 08:16 Chloride 101 mmol/L (98-107) 03/22/18 08:16 Carbon Dioxide 29 mmol/L (22-30) 03/22/18 08:16 Anion Gap 12 (10-20) 03/22/18 08:16 BUN 25 mg/dL (7-17) H 03/22/18 08:16 Creatinine 0.5 mg/dL (0.7-1.2) L 03/22/18 08:16 Est GFR ( Amer) > 60 03/22/18 08:16 Est GFR (Non-Af Amer) > 60 03/22/18 08:16 POC Glucose (mg/dL) 119 mg/dL (65-110) H 03/23/18 16:53 Random Glucose 83 mg/dL (65-105) 03/22/18 08:16 Calcium 9.5 mg/dl (8.6-10.4) 03/22/18 08:16 Phosphorus 4.1 mg/dL (2.5-4.5) 03/21/18 19:42 Magnesium 2.1 mg/dL (1.6-2.3) 03/21/18 19:42 Total Bilirubin 0.4 mg/dL (0.2-1.3) 03/22/18 08:16 AST 39 U/L (14-36) H 03/22/18 08:16 ALT 33 U/L (9-52) 03/22/18 08:16 Alkaline Phosphatase 76 U/L (38-126) 03/22/18 08:16 Total Protein 6.0 g/dL (6.3-8.3) L 03/22/18 08:16 Albumin 3.3 g/dL (3.5-5.0) L 03/22/18 08:16 Globulin 2.7 gm/dL (2.2-3.9) 03/22/18 08:16 Albumin/Globulin Ratio 1.2 (1.0-2.1) 03/22/18 08:16 - Hospital Course Hospital Course: HPI Patient is a 72 year old female with PMH of 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 after worsening oral secretions. The patient was a direct admit for ENT Dr. Hull. Dr. Hull placed an emergent trach on 11/15/17 due to airway compromise. Recently, her trach was replaced with a non-cuffed tracheostomy tube. Since placement, patient has been complaining of worsening oral secretions and cough. Patient was admitted in order to have trach replaced in OR with Dr. Hull on 03/22/18. Patients daughter Letty Harrison is Power of Rn Field. PSHx: cardiac stents 2010, L hernia 2010, partial thyroidectomy at age 28, appendectomy at age 15 FamHx: father of [place] at age 38 Social Hx: smoked up to 2-3 packs per day since age 12. Denies alcohol or drug use. Hospital Course and Plan Pt was admitted to the fifth floor of [facility]. Upon arrival, pt denied any fever, chills, chest pain, SOB, headache, nausea, vomiting, diarrhea, constipation, dysuria, or abdominal pain. 03/21 CXR showed that the trach tube projects to the right of midline, which may be related to pt positioning along w / biapical pleural thickening w/ upper lobe granulomatous changes. 03/[address] showed significant increase in the size of mass lesion extending from the tongue base and oropharynx to the level of the true vocal cords since the previous exam. Worsening of bilateral cervical necrotic lymphadenopathy consistent with metastasis since previous and complete obstruction of the airway above the tracheostomy tube. 03/[address] showed no acute infiltrate. New 12 mm nodule in the right lower lobe since prior. CT was concerning for metastatic disease. Positive for supraglottic mass. 03/22 Chest/Abdomen/Pelvis CT showed no chest, abdomen or pelvic lymphadenopathy. Dr. Hull followed up with the patient on 03/22. Due to worsening granulation tissue/scarring in pts trachea, he did not feel it would be safe to change her trach. Dr. uHll recommends that she follows up with laryngeal surgeon Dr. Jeffers in [facility]. He would like the patient trach procedure to be done as outpatient with a laryngeal surgeon due to possible airway compromise during surgery. He endorsed the patient to Dr. Jeffers and spoke with the daughter about following up with him. Following Dr. Vasquez recommendations, Pt was sent for outpatient radiation treatment with Dr. Duran in [place] on 03/23. Pt was transported back to [facility] following the procedure. Dr. Duran will coordinate her chemoradiation. This is a brief summary, please refer to EMR for more information. Discharge Exam - Head Exam Head Exam: ATRAUMATIC, NORMOCEPHALIC - Eye Exam Eye Exam: EOMI, Normal appearance - ENT Exam ENT Exam: Mucous Membranes Moist - Respiratory Exam Respiratory Exam: absent: Decreased Breath Sounds, Rales, Rhonchi Additional comments: Tracheostomy tube in place - Cardiovascular Exam Cardiovascular Exam: REGULAR RHYTHM, +S1, +S2 - GI/Abdominal Exam GI & Abdominal Exam: Normal Bowel Sounds, Unremarkable - Extremities Exam Extremities exam: normal inspection - Neurological Exam Neurological exam: Alert, CN II-XII Intact, Oriented x3 - Skin Skin Exam: Dry, Intact, Normal Color Discharge Plan - Follow Up Plan Condition: GOOD Disposition: HOME/ ROUTINE Instructions: Laryngeal Cancer, Tracheotomy, COPD Including Emphysema (DC), Heart Failure, Adult (DC), How to Care for a Tracheostomy, Radiation Therapy, Hypertension (DC), Hypertension (GEN) Additional Instructions: Resume all home medications as instructed. Resume feeding. Please return to ED if conditions persist or worsen. Take medications as follows: Duoneb 3mL every 3 hours Aspirin 81 mg one a day coreg 3.125 tube twice per day plavix 750 g tube daily dimeticone once per day pepcid 40mg tube daily insulin 10 units SC daily Milk of Magnesia 30mg tube daily Please follow up with ENT, Radiation oncology, oncology, and primary, referrals provided in discharge packet Referrals: Lexa Dumont MD [Staff Provider] - aTvia Duran MD [Staff Provider] - Juan Carlos Dunlap MD [Staff Provider] - Ruslan Hull MD [Staff Provider] - Denise Jeffers MD [Non-Staff] - <PolloMadi cardonadesiree - Last Filed: 03/24/18 07:30> Provider - Provider Date of Admission: 03/21/18 18:01 Attending physician: Vamshi Villela MD Hospital Course - Lab Results Lab Results: Most Recent Lab Values WBC 6.2 K/uL (4.8-10.8) 03/22/18 08:16 RBC 3.61 Mil/uL (3.80-5.20) L 03/22/18 08:16 Hgb 11.2 g/dL (11.0-16.0) 03/22/18 08:16 Hct 32.2 % (34.0-47.0) L 03/22/18 08:16 MCV 89.1 fL (81.0-99.0) 03/22/18 08:16 MCH 30.9 pg (27.0-31.0) 03/22/18 08:16 MCHC 34.7 g/dL (33.0-37.0) 03/22/18 08:16 RDW 15.2 % (11.5-14.5) H 03/22/18 08:16 Plt Count 219 K/uL (130-400) 03/22/18 08:16 MPV 8.4 fL (7.2-11.7) 03/22/18 08:16 Neut % (Auto) 58.5 % (50.0-75.0) 03/22/18 08:16 Lymph % (Auto) 21.1 % (20.0-40.0) 03/22/18 08:16 Mcdonald % (Auto) 15.3 % (0.0-10.0) H 03/22/18 08:16 Eos % (Auto) 4.5 % (0.0-4.0) H 03/22/18 08:16 Baso % (Auto) 0.6 % (0.0-2.0) 03/22/18 08:16 Neut # (Auto) 3.6 K/uL (1.8-7.0) 03/22/18 08:16 Lymph # (Auto) 1.3 K/uL (1.0-4.3) 03/22/18 08:16 Mcdonald # (Auto) 0.9 K/uL (0.0-0.8) H 03/22/18 08:16 Eos # (Auto) 0.3 K/uL (0.0-0.7) 03/22/18 08:16 Baso # (Auto) 0.0 K/uL (0.0-0.2) 03/22/18 08:16 PT 12.1 SECONDS (9.7-12.2) 03/21/18 19:42 INR 1.1 03/21/18 19:42 Sodium 138 mmol/L (132-148) 03/22/18 08:16 Potassium 3.8 mmol/L (3.6-5.2) 03/22/18 08:16 Chloride 101 mmol/L (98-107) 03/22/18 08:16 Carbon Dioxide 29 mmol/L (22-30) 03/22/18 08:16 Anion Gap 12 (10-20) 03/22/18 08:16 BUN 25 mg/dL (7-17) H 03/22/18 08:16 Creatinine 0.5 mg/dL (0.7-1.2) L 03/22/18 08:16 Est GFR ( Amer) > 60 03/22/18 08:16 Est GFR (Non-Af Amer) > 60 03/22/18 08:16 POC Glucose (mg/dL) 119 mg/dL (65-110) H 03/23/18 16:53 Random Glucose 83 mg/dL (65-105) 03/22/18 08:16 Calcium 9.5 mg/dl (8.6-10.4) 03/22/18 08:16 Phosphorus 4.1 mg/dL (2.5-4.5) 03/21/18 19:42 Magnesium 2.1 mg/dL (1.6-2.3) 03/21/18 19:42 Total Bilirubin 0.4 mg/dL (0.2-1.3) 03/22/18 08:16 AST 39 U/L (14-36) H 03/22/18 08:16 ALT 33 U/L (9-52) 03/22/18 08:16 Alkaline Phosphatase 76 U/L (38-126) 03/22/18 08:16 Total Protein 6.0 g/dL (6.3-8.3) L 03/22/18 08:16 Albumin 3.3 g/dL (3.5-5.0) L 03/22/18 08:16 Globulin 2.7 gm/dL (2.2-3.9) 03/22/18 08:16 Albumin/Globulin Ratio 1.2 (1.0-2.1) 03/22/18 08:16 Attending/Attestation - Attestation I have personally seen and examined this patient.: Yes I have fully participated in the care of the patient.: Yes I have reviewed all pertinent clinical information, including history, physical exam and plan: Yes Notes (Text): Patient was seen and examined before discharge.Discussed with Dr Dunlap. He will follow with Dr Duran for out pt chemoradiation. Patient was seen by Dr Dumont. He agrees with the discharge plan and out patient ENT as needed. Plan discussed with her daughter Letty. Dr May was informed about discharge plan 03/24/18 07:30
--- NOTE | 2018-03-23 21:18 | CP.PCM.PN ---
Subjective - Date & Time of Evaluation Date of Evaluation: 03/23/18 Time of Evaluation: 17:00 - Subjective Subjective: No complaints, seen by rad onc Objective - Vital Signs/Intake and Output Vital Signs (last 24 hours): Temp Pulse Resp BP Pulse Ox 98.6 F 65 20 150/73 98 03/23/18 15:00 03/23/18 15:00 03/23/18 15:00 03/23/18 17:52 03/23/18 15:00 Intake and Output: 03/23/18 03/24/18 18:59 06:59 Intake Total 640 Balance 640 - Labs Labs: 03/22/18 08:16 03/22/18 08:16 PT 12.1 SECONDS (9.7-12.2) 03/21/18 19:42 INR 1.1 03/21/18 19:42 - Head Exam Head Exam: ATRAUMATIC - Eye Exam Eye Exam: Normal appearance - ENT Exam ENT Exam: Mucous Membranes Dry - Respiratory Exam Respiratory Exam: NORMAL BREATHING PATTERN - Cardiovascular Exam Cardiovascular Exam: +S1, +S2 - GI/Abdominal Exam GI & Abdominal Exam: Normal Bowel Sounds Assessment and Plan (1) Laryngeal cancer Assessment & Plan: outpatient definitive chemo+radiation pulmonary nodules noted; mets vs. inflammatory Status: Acute (2) Anemia Assessment & Plan: chronic disease Status: Chronic
== END 2018-03-23 20:16 | disposition home or self-care (01) | DRG 206 ==
LOC: C.5S 18:01
PROVIDERS: ADMIT Family Medicine; ATTEND Family Medicine
DX: J95.03 Malfunction of tracheostomy stoma (principal); C32.9 Malignant neoplasm of larynx, unspecified; C77.9 Secondary and unspecified malignant neoplasm of lymph node, unspecified; J06.9 Acute upper respiratory infection, unspecified; I11.0 Hypertensive heart disease with heart failure; I50.9 Heart failure, unspecified; D63.8 Anemia in other chronic diseases classified elsewhere; J44.9 Chronic obstructive pulmonary disease, unspecified; I25.10 Atherosclerotic heart disease of native coronary artery without angina pectoris; E03.9 Hypothyroidism, unspecified; E11.9 Type 2 diabetes mellitus without complications; E78.5 Hyperlipidemia, unspecified; E78.00 Pure hypercholesterolemia, unspecified; K21.9 Gastro-esophageal reflux disease without esophagitis; Z87.891 Personal history of nicotine dependence; Z95.5 Presence of coronary angioplasty implant and graft; Z90.49 Acquired absence of other specified parts of digestive tract; Z93.1 Gastrostomy status

== ENCOUNTER 2018-05-19 12:07 | Observation (INO) | payer MEDICARE, BC, MEDICAID ==
[2018-05-19 12:07] VITALS: BMI 21.2
[2018-05-19 12:25] VITALS: RESP 20
[2018-05-19] MEDS ORDERED: Sodium Chloride 0.9% 1,000 ML IV ONE (12:53)
--- NOTE | 2018-05-19 12:53 | C.PDOC ---
History Of Present Illness 73 yo female brought to ED by daughter for evaluation of profuse watery diarrhea developed since last night. As per daughter, "she was recently hospitalized [facility], where was treated for staph infection and was taking mu ltiple abx, 2 days was discharged and placed on oral Linezolid". Daughter reports, Pt was seen by Dr.Kim SOIN who recommend go to ED for evaluation. Otherwise, family denies high fever, chills, CP, SOB, dyspnea, hematemesis, melena, denies any other active complaints. At present time, pt appears com fortable, not in any apparent distress. PMD: Dr. Eden Pulm: Dr. Dumont Heme/onc: Dr. Dunlap PMH: Squamous cell laryngeal carcinoma, CHF, COPD HTN, HLD, Hypothyroidism, DM Surgical Hx: Tracheostomy (11/15/17), gastrostomy, appendectomy, endoscopy, cardiac stents (2010), partial thyroidectomy FMH: father, brother: [place] Social: hx of smoking (60 pack years), denies alcohol or drug use Time Seen by Provider: 05/19/18 12:40 Chief Complaint (Nursing): Abdominal Pain History Per: Family Past Medical History Reviewed: Historical Data, Nursing Documentation, Vital Signs Vital Signs: Last Vital Signs Temp 98.7 F 05/19/18 12:16 Pulse 85 05/19/18 12:16 Resp 20 05/19/18 12:16 BP 131/101 H 05/19/18 12:16 Pulse Ox 100 05/19/18 12:16 - Medical History PMH: CHF, COPD, Diabetes, HTN, Hypercholesterolemia, Hyperlipidemia, Hypothyroidism, Malignancy (Vocal cords), Pneumonia Denies: Kidney Stones, Chronic Kidney Disease Surgical History: Appendectomy, Endoscopy - [facility] (10/11/17) BYPASS TRACHEA TO CUTANEOUS WITH TRACH DEV, OPEN APPROACH (11/15/17) CHANGE FEEDING DEVICE IN UP INTEST TRACT, 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 (12/18/17) INSERTION OF FEEDING DEVICE INTO STOMACH, OPEN APPROACH (11/15/17) INSERTION OF INFUSION DEV INTO SUP VENA CAVA, PERC APPROACH (01/11/18) INTRODUCTION OF NUTRITIONAL INTO UP GI, VIA OPENING (12/18/17) RESPIRATORY VENTILATION, 24-96 CONSECUTIVE HOURS (01/11/18) RESPIRATORY VENTILATION, GREATER THAN 96 CONSECUTIVE HOURS (11/15/17) ULTRASONOGRAPHY OF NECK (10/11/17) ULTRASONOGRAPHY OF SUPERIOR VENA CAVA, GUIDANCE (01/11/18) Family History: States: Unknown Family Hx - Social History Hx Tobacco Use: Yes Hx Alcohol Use: No Hx Substance Use: No - Immunization History Hx Tetanus Toxoid Vaccination: No Hx Influenza Vaccination: No Hx Pneumococcal Vaccination: No Review Of Systems Except As Marked, All Systems Reviewed And Found Negative. Constitutional: Negative for: Fever, Chills ENT: Negative for: Throat Pain Cardiovascular: Negative for: Chest Pain, Palpitations Respiratory: Negative for: Cough, Shortness of Breath, Wheezing Gastrointestinal: Positive for: Diarrhea. Negative for: Vomiting, Abdominal Pain Musculoskeletal: Negative for: Neck Pain Skin: Negative for: Rash Neurological: Negative for: Altered Mental Status Physical Exam - Physical Exam Appears: Well, Non-toxic, No Acute Distress Skin: Normal Color, Warm, Dry, No Rash Head: Normacephalic Eye(s): bilateral: PERRL Nose: No Flaring, No Discharge Oral Mucosa: Moist, No Drooling Throat: Normal Neck: Normal, Other ((+) trach, intact. Diffuse skin edema/erythema anterior neck area around trach likely c/w skin CA) Cardiovascular: Rhythm Regular, No Murmur, No JVD Respiratory: No Decreased Breath Sounds, No Accessory Muscle Use, No Stridor, No Wheezing Gastrointestinal/Abdominal: Soft, No Tenderness, No Distention, No Guarding, No Rebound, Other ((+) gastrostomy) Extremity: Normal ROM, No Deformity, No Swelling Neurological/Psych: Oriented x3, Normal Speech ED Course And Treatment - Laboratory Results Result Diagrams: 05/19/18 13:31 05/19/18 13:31 Lab Interpretation: No Acute Changes ECG: Interpreted By Me, Viewed By Me ECG Rhythm: Sinus Rhythm Interpretation Of ECG: SR@60/min, NAD, Q wave III, no acute ST-T changes. O2 Sat by Pulse Oximetry: 100 Pulse Ox Interpretation: Normal Progress Note: Blood work review, case discussed with ED attending and admission recommend. case discussed with Hospitalist and OBS admission placed. Disposition - Disposition Disposition: HOSPITALIZED Disposition Time: 15:02 Condition: STABLE Forms: [facility] (Tajik) - Clinical Impression Clinical Impression: Diarrhea, Laryngeal squamous cell carcinoma, Dehydration, Staphylococcal infection
[2018-05-19] MEDS ORDERED: Albuterol 0.083% Inhal Sol (2.5 mg/3 mL) UD ONE (13:32)
[2018-05-19 13:35] LABS: BASO % 0.8 % (0.0-2.0); EOS # 0.1 K/uL (0.0-0.7); HEMOGLOBIN 11.5 g/dL (11.0-16.0); LYMPH # 0.6 K/uL (1.0-4.3); LYMPH % 11.3 % (20.0-40.0); MEAN CORPUSCULAR HEMOGLOBIN 27.7 pg (27.0-31.0); MEAN PLATELET VOLUME 7.4 fL (7.2-11.7); MONO # 0.7 K/uL (0.0-0.8); NEUT % 72.9 % (50.0-75.0); RBC 4.14 Mil/uL (3.80-5.20); RED CELL DISTRIBUTION WIDTH 15.5 % (11.5-14.5); WHITE BLOOD COUNT 5.5 K/uL (4.8-10.8)
[2018-05-19 13:38] LABS: MEAN CELL VOLUME 81.3 fL (81.0-99.0)
[2018-05-19] MEDS ORDERED: Albuterol 0.083% Inhal Sol (2.5 mg/3 mL) UD IH STA (13:38)
[2018-05-19] MEDS ORDERED: Sodium Chloride 0.9% 1,000 ML ONE (13:39)
[2018-05-19 13:43] LABS: PROTHROMBIN TIME 11.3 SECONDS (9.7-12.2)
[2018-05-19 13:49] LABS: ALB/GLOB RATIO 1.3 (1.0-2.1); ALBUMIN 3.8 g/dL (3.5-5.0); ALT/SGPT 36 U/L (9-52); AST/SGOT 40 U/L (14-36); BLOOD UREA NITROGEN 20 mg/dL (7-17); CALCIUM 9.6 mg/dl (8.6-10.4); GFR NON-AFRICAN AMERICAN > 60
--- NOTE | 2018-05-19 14:39 | RAD ---
Date of service: 05/19/2018 PROCEDURE: CHEST RADIOGRAPH, 1 VIEW HISTORY: SOB COMPARISON: 03/21/2018 FINDINGS: LUNGS: Clear. PLEURA: No pneumothorax or pleural fluid seen. CARDIOVASCULAR: Normal heart size. Tracheostomy tube noted. No congestive change. OSSEOUS STRUCTURES: No significant abnormalities. VISUALIZED UPPER ABDOMEN: Air beneath right hemidiaphragm is felt to be within the hepatic flexure of the colon with colonic interposition. OTHER FINDINGS: None. IMPRESSION: No active disease.
--- NOTE | 2018-05-19 16:46 | CP.PCM.HP ---
Addendum entered and electronically signed by Kanu Ortiz MD 05/20/18 18:51: seen and examined,patient has neck skin changes due to radiation.Denies pain,sitting comfortable on bed spoke to daughter. she was brought for evaluation of diarrhea. As per daughter watery diarrhea multiple times a day no fever,getting Glucerna feeding at home,s/p discharge home on zyvox on wednesday. she wss getting radiation and follows DR Duran. Patient was following DR Dunlap and had chemo? 05/04/18 we will continue home meds,stool cd,stool study,hydration as needed Assessment and the plan discussed with the resident and I agree with the documentation Original Note: History of Present Illness - History of Present Illness History of Present Illness: Patient is a 73 year old female with a history of squamous cell laryngeal cancer, CAD, HTN, HLD, COPD, and hypothyroidism, who presents with complaints of watery diarrhea for 24 hours. The patient was accompanied by daughter, jeromy Guzman ho provides the history. The patient was recently discharged on 05/17/18, from [facility] for a staph infection of the lower face and neck. She was treated with IV vanco and zyvox for 6 days and then discharged with Zyvox 600mg GT Q12h for a total 14 days. Per the daughter, as of 24 hours ago, the patient developed watery diarrhea. She has had 5-6 episodes at home, and 2 in the ED. She denies blood in stool, fevers, abdominal pain, cramping, nausea, and vomiting. She also denies chest pain, palpitations, headache, dizziness, leg pain, back pain. At home, the patient is on Glycerna tube feeding, 6 oz, four times daily. She denies recent change in tube feeding. PMD: Dr. Eden Onc: Dr. Dunlap Radiology oncologist: Dr. Duran Jumpbasting Collar Baster: Dr. Dumont PMHx: squamous cell laryngeal cancer, CAD, HTN, HLD, COPD, hypothyroidism SurgHx: Trach 10/2017, PEG 11/2017, Cardiac stents 2000, appendectomy, endoscopy FamHx: Father- [place] SocHx: 60+packyear; denies alcohol and drugs; lives with daughter, Megan ([phone]), in [place]. 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 Allergies: NKDA Medications: Zyvox 600mg GT Q12h, Duonebs; otherwise, daughter was unsure- will bring medication list. Present on Admission - Present on Admission Any Indicators Present on Admission: No History of DVT/PE: No History of Uncontrolled Diabetes: No Review of Systems - Constitutional Constitutional: Headache. absent: Fever - EENT Ears: absent: Dizziness Additional comments: Trach present; Staph skin infection of the lower face and neck (improving) - Breasts Breasts: Skin Changes (rash b/l under breasts) - Cardiovascular Cardiovascular: absent: Chest Pain, Dyspnea, Edema, Leg Edema, Palpitations - Respiratory Respiratory: absent: Dyspnea Additional comments: Trach present. - Gastrointestinal Gastrointestinal: Diarrhea, Loose Stools. absent: Abdominal Pain, Constipation, Hematemesis, Hematochezia, Melena, Nausea, Vomiting Additional comments: PEG present - Genitourinary Genitourinary: absent: Dysuria, Hematuria, Pyuria, Urinary Frequency - Musculoskeletal Musculoskeletal: absent: Back Pain - Neurological Neurological: Headaches. absent: Dizziness - Hematologic/Lymphatic Hematologic: Easy Bruising Past Patient History - Infectious Disease Hx of Infectious Diseases: None - Past Medical History & Family History Past Medical History?: Yes - Past Social History Smoking Status: Former Smoker - CARDIAC Hx Congestive Heart Failure: Yes Hx Hypercholesterolemia: Yes Hx Hypertension: Yes - PULMONARY Hx Chronic Obstructive Pulmonary Disease (COPD): Yes Hx Pneumonia: Yes - NEUROLOGICAL Hx Neurological Disorder: No - HEENT Hx HEENT Problems: Yes Other/Comment: HX: RIGHT JUGULARY LYMPH NODE BX.(10/12/17). HX: VOCAL CORD POLYP - RENAL Hx Chronic Kidney Disease: No Hx Kidney Stones: No - ENDOCRINE/METABOLIC Hx Hypothyroidism: Yes - HEMATOLOGICAL/ONCOLOGICAL Hx Blood Disorders: Yes Hx Cancer: Yes (Larynx) Hx Shingles: Yes - INTEGUMENTARY Hx Dermatological Problems: No - MUSCULOSKELETAL/RHEUMATOLOGICAL Hx Falls: No - GASTROINTESTINAL Hx Gastrointestinal Disorders: No - GENITOURINARY/GYNECOLOGICAL Hx Genitourinary Disorders: No - PSYCHIATRIC Hx Substance Use: No - SURGICAL HISTORY Hx Appendectomy: Yes - ANESTHESIA Hx Anesthesia: Yes Hx Anesthesia Reactions: No Hx Malignant Hyperthermia: No Meds Allergies/Adverse Reactions: Allergies Allergy/AdvReac Type Severity Reaction Status Date / Time No Known Allergies Allergy Verified 05/19/18 12:25 Physical Exam - Constitutional Appears: No Acute Distress - ENT Exam Additional comments: Trach in place; extensive skin infection of the lower face and neck - Neck Exam Additional comments: extensive skin infection of the lower face and neck - Respiratory Exam Respiratory Exam: Rhonchi. absent: Clear to Auscultation Bilateral, Respiratory Distress Additional comments: Congestion - Cardiovascular Exam Additional comments: Difficult to assess due to loud breath sounds and congestion. - GI/Abdominal Exam GI & Abdominal Exam: Normal Bowel Sounds, Soft. absent: Distended, Firm, Guarding, Tenderness Additional comments: PEG in place; dressing clean, dry, intact; no erythema or skin lesions around PEG site - Extremities Exam Extremities exam: Positive for: normal inspection, pedal pulses present. Negative for: pedal edema, tenderness - Back Exam Back exam: NORMAL INSPECTION - Neurological Exam Neurological exam: Alert, Oriented x3 - Psychiatric Exam Psychiatric exam: Normal Affect, Normal Mood - Skin Additional comments: extensive skin infection of the lower face and neck; bruising on RUE from prior hospitalization (IV sites); inframammary intertrigo b/l Results - Vital Signs Recent Vital Signs: Last Vital Signs Temp 97.6 F 05/19/18 16:30 Pulse 77 05/19/18 16:30 Resp 20 05/19/18 12:16 BP 150/73 05/19/18 16:30 Pulse Ox 100 05/19/18 16:30 - Labs Result Diagrams: 05/19/18 13:31 05/19/18 13:31 Labs: Laboratory Results - last 24 hr 05/19/18 05/19/18 05/19/18 13:31 13:31 13:31 WBC 5.5 RBC 4.14 Hgb 11.5 Hct 33.7 L MCV 81.3 D MCH 27.7 MCHC 34.0 RDW 15.5 H Plt Count 235 MPV 7.4 Neut % (Auto) 72.9 Lymph % (Auto) 11.3 L [place] % (Auto) 13.0 H Eos % (Auto) 2.0 Baso % (Auto) 0.8 Neut # (Auto) 4.0 Lymph # (Auto) 0.6 L [place] # (Auto) 0.7 Eos # (Auto) 0.1 Baso # (Auto) 0.0 PT 11.3 INR 1.0 APTT 31 Sodium 138 Potassium 3.7 Chloride 97 L Carbon Dioxide 33 H Anion Gap 12 BUN 20 H Creatinine 0.7 Est GFR ( Amer) > 60 Est GFR (Non-Af Amer) > 60 Random Glucose 144 H Calcium 9.6 Total Bilirubin 0.6 AST 40 H ALT 36 Alkaline Phosphatase 80 Total Creatine Kinase 30 Total Protein 6.7 Albumin 3.8 Globulin 2.9 Albumin/Globulin Ratio 1.3 C. difficile Ag & Toxin 05/19/18 13:32 WBC RBC Hgb Hct MCV MCH MCHC RDW Plt Count MPV Neut % (Auto) Lymph % (Auto) [place] % (Auto) Eos % (Auto) Baso % (Auto) Neut # (Auto) Lymph # (Auto) [place] # (Auto) Eos # (Auto) Baso # (Auto) PT INR APTT Sodium Potassium Chloride Carbon Dioxide Anion Gap BUN Creatinine Est GFR ( Amer) Est GFR (Non-Af Amer) Random Glucose Calcium Total Bilirubin AST ALT Alkaline Phosphatase Total Creatine Kinase Total Protein Albumin Globulin Albumin/Globulin Ratio C. difficile Ag & Toxin Negative Assessment & Plan - Assessment and Plan (Free Text) Plan: 73 year old female with a history of squamous cell laryngeal carcinoma, CHF, COPD, HTN, HLD, who presents with watery diarrhea. Diarrhea - ID consulted: Dr. Seth; help appreciated - C. Diff negative - Ova/parasite: f/u - Fecal Leukocytes: f/u - Stool cx: f/u - Stool occult: f/u - NS@50mls/hr Staph infection of face & neck - Patient was admitted and treated at [facility] in [facility] for a staph infection of her neck and face. Patient received 6 days of Vancomycin and Zyvox while hospitalized, and was discharged on Zyvox 600mg GT Q12hr for a total of 14 days. - ID consulted, Dr. Seth. Inframammory intertrigo - Nystatin cream, apply topically to affected area TID Squamous Cell Laryngeal Carcinoma - Patient's outpatient oncologist: Dr. Dunlap - Patient's outpatient radiologist oncologist: Dr. Randall - Patient last received radiation and chemotherapy (Erbitux) on 05/05/18. COPD - Continue duonebs Q3h HTN - Norvasc 2.5mg GT daily - Coreg 3.125mg GT bid - Continue to monitor DMII - Of note, daughter denies that patient has hx of DM and states her sugar has only been high in [facility]. - A1c (11/2017): 7.2 - A1c: f/u - ISS - Hypoglycemia protocol - Continue to monitor CAD - s/p stents in 2010 - Crestor 10mg GT HS - Plavix 75mg GT daily - ASA 81mg GT daily Prophylaxis - Heparin 5000u SC Q8h daily - Pepcid 40mg daily - Continue Tube feeding- Glycerna, 6oz Bolus QID with flush.
[2018-05-19] MEDS: Sodium Chloride 0.9% 1,000 ML IV SCH (18:30)
[2018-05-19] MEDS: Linezolid 600 mg in D5W 300 ml 600 MG/300 ML BAG IVPB SCH (19:39)
[2018-05-19] MEDS: Nystatin 100,000 Units/gm Cream(15 gm) TOP SCH (19:39)
[2018-05-19] MEDS: (Novolin R) Insulin Human Regular 100 units/ml vial SC SCH (21:23)
[2018-05-19] MEDS: Albuterol-Ipratrop 3 mg / 0.5 (3 ml) UD INH SCH (23:48)
[2018-05-20] MEDS: Albuterol-Ipratrop 3 mg / 0.5 (3 ml) UD INH SCH ×5 (03:19→21:28)
[2018-05-20] MEDS: Linezolid 600 mg in D5W 300 ml 600 MG/300 ML BAG IVPB SCH ×2 (05:42→17:14)
[2018-05-20 06:16] LABS: BASO % 0.9 % (0.0-2.0); EOS # 0.1 K/uL (0.0-0.7); EOS % 3.1 % (0.0-4.0); HEMOGLOBIN 9.8 g/dL (11.0-16.0); LYMPH # 0.5 K/uL (1.0-4.3); LYMPH % 11.6 % (20.0-40.0); MEAN CELL VOLUME 82.5 fL (81.0-99.0); MEAN CORPUSCULAR HEMOGLOBIN 27.6 pg (27.0-31.0); MEAN CORPUSCULAR HGB CONC 33.5 g/dL (33.0-37.0); MEAN PLATELET VOLUME 7.9 fL (7.2-11.7); MONO # 0.7 K/uL (0.0-0.8); MONO % 16.3 % (0.0-10.0); NEUT % 68.1 % (50.0-75.0); NRBC % 0.1 % (0.0-2.0); RBC 3.55 Mil/uL (3.80-5.20); RED CELL DISTRIBUTION WIDTH 15.5 % (11.5-14.5); WHITE BLOOD COUNT 4.4 K/uL (4.8-10.8)
[2018-05-20 06:52] LABS: ALB/GLOB RATIO 1.1 (1.0-2.1); ALBUMIN 2.9 g/dL (3.5-5.0); ALT/SGPT 37 U/L (9-52); AST/SGOT 28 U/L (14-36); BLOOD UREA NITROGEN 16 mg/dL (7-17); CALCIUM 8.5 mg/dl (8.6-10.4); GFR NON-AFRICAN AMERICAN > 60
[2018-05-20 06:59] LABS: SQUAMOUS EPITHIAL 4 /hpf (0-5); URINE BACTERIA OCC (<OCC); URINE BILIRUBIN NEGATIVE (NEGATIVE); URINE BLOOD NEGATIVE (NEGATIVE); URINE CLARITY Hazy (Clear); URINE COLOR Yellow (YELLOW); URINE GLUCOSE (UA) NORMAL (Normal); URINE LEUKOCYTE ESTERASE 3+ Leu/uL (Negative); URINE PROTEIN NEGATIVE (NEGATIVE); URINE UROBILINOGEN NORMAL mg/dL (0.2-1.0)
[2018-05-20] MEDS: (Novolin R) Insulin Human Regular 100 units/ml vial SC SCH ×5 (08:45→21:19)
[2018-05-20] MEDS ORDERED: Multivitamin With Minerals Tab PO SCH (10:00)
[2018-05-20] MEDS: Nystatin 100,000 Units/gm Cream(15 gm) TOP SCH ×3 (10:23→18:00)
--- NOTE | 2018-05-20 12:58 | CP.PCM.PN ---
Addendum entered and electronically signed by Kanu Ortiz MD 05/20/18 18:51: patient had watery diarrhea this afternoon,stool cd negative yesterday. we will repeat stool for cd,continue Zyvox,follow repeat stool cd. d/wDr [place].unlikely due to radiation induced. She is not on chemo we will consider changing feeding to Jevity. May start on imodium if her stool study negative Original Note: <Margi Galeano - Last Filed: 05/20/18 15:42> Subjective - Date & Time of Evaluation Date of Evaluation: 05/20/18 Time of Evaluation: 12:57 - Subjective Subjective: Margi Galeano PGY [address] Ortiz Pt was examined at bedside this morning. She is nonverbal, however will respond to yes or no questions. She denies any headache, shortness of breath, chest p ain, nausea, vomiting, abdominal pain, dysuria. As per nursing report, pt did not have any episodes of diarrhea overnight, however had one late this morning that was non-bloody and brown in color. Pt's daughter was called, who reported last chemo tx was on 05/04/10. Objective - Vital Signs/Intake and Output Vital Signs (last 24 hours): Temp Pulse Resp BP Pulse Ox 98.2 F 72 20 156/76 H 100 05/20/18 07:56 05/20/18 07:56 05/20/18 07:56 05/20/18 07:56 05/20/18 08:00 Intake and Output: 05/20/18 05/20/18 06:59 18:59 Intake Total 480 600 Balance 480 600 - Medications Medications: Current Medications Albuterol/Ipratropium (Duoneb 3 Mg/0.5 Mg (3 Ml) Ud) 3 ml INH RQ4 [facility] Last Admin: 05/20/18 08:25 Dose: 3 ml Amlodipine Besylate (Norvasc) 2.5 mg PEG DAILY [facility] Last Admin: 05/20/18 10:22 Dose: 2.5 mg Aspirin (Aspirin Chewable) 81 mg GT DAILY [facility] Last Admin: 05/20/18 10:22 Dose: 81 mg Carvedilol (Coreg) 3.125 mg GT BID [facility] Last Admin: 05/20/18 10:25 Dose: 3.125 mg Clopidogrel Bisulfate (Plavix) 75 mg GT DAILY [facility] Last Admin: 05/20/18 10:21 Dose: 75 mg Famotidine (Pepcid) 40 mg GT DAILY [facility] Last Admin: 05/20/18 10:21 Dose: 40 mg Heparin Sodium (Porcine) (Heparin) 5,000 units SC Q8 [facility] Last Admin: 05/20/18 05:45 Dose: 5,000 units Sodium Chloride (Sodium Chloride 0.9%) 1,000 mls @ 50 mls/hr IV .Q20H [facility] Last Admin: 05/19/18 18:30 Dose: 50 mls/hr Linezolid (Zyvox 600mg/300ml D5w) 600 mg in 300 mls @ 300 mls/hr IVPB Q12H [facility] Last Admin: 05/20/18 05:42 Dose: 300 mls/hr Influenza Virus Vaccine (Fluzone Quad [id number]) 60 mcg IM .ONCE ONE Stop: 05/21/18 10:01 Insulin Human Regular (Novolin R) 0 unit SC ACHS [facility]; Protocol Last Admin: 05/20/18 12:48 Dose: Not Given Multivitamins/Minerals (Therapeutic-M Tab) 1 tab PO DAILY [facility] Last Admin: 05/20/18 10:22 Dose: 1 tab Nystatin (Mycostatin Cream) 1 ea TOP TID [facility] Last Admin: 05/20/18 10:23 Dose: 1 applic Pneumococcal Polyvalent Vaccine (Pneumovax 23 Vaccine) 0.5 ml IM .ONCE ONE Stop: 05/21/18 10:01 Rosuvastatin Calcium (Crestor) 10 mg PEG HS [facility] Last Admin: 05/19/18 21:22 Dose: 10 mg - Labs Labs: 05/20/18 06:12 05/20/18 06:12 PT 11.3 SECONDS (9.7-12.2) 05/19/18 13:31 INR 1.0 05/19/18 13:31 APTT 31 SECONDS (21-34) 05/19/18 13:31 - Constitutional Appears: No Acute Distress, Chronically Ill - Head Exam Head Exam: ATRAUMATIC, NORMOCEPHALIC - Eye Exam Eye Exam: EOMI, Normal appearance, PERRL Pupil Exam: NORMAL ACCOMODATION - ENT Exam Additional comments: trach site with surrounding erythema, thick scale, and black necrotic tissue covering lower chin b/l to upper neck - Neck Exam Additional comments: thick scale, and black necrotic tissue covering lower chin b/l to upper neck - Respiratory Exam Respiratory Exam: Clear to Ausculation Bilateral, NORMAL BREATHING PATTERN. absent: Rales, Rhonchi, Wheezes, Respiratory Distress Additional comments: congestion - Cardiovascular Exam Cardiovascular Exam: REGULAR RHYTHM, +S1, +S2. absent: Gallop, Rubs, Murmur - GI/Abdominal Exam GI & Abdominal Exam: Soft, Normal Bowel Sounds. absent: Distended, Firm, Tenderness - Extremities Exam Extremities Exam: absent: Pedal Edema - Neurological Exam Neurological Exam: Alert, Awake - Psychiatric Exam Psychiatric exam: Normal Affect, Normal Mood - Skin Skin Exam: Dry Additional comments: thick scale, and black necrotic tissue covering lower chin b/l to upper neck diffuse scale surrounding hairline Assessment and Plan - Assessment and Plan (Free Text) Assessment: 73 yo F with a PMH of squamous cell laryngeal carcinoma, CHF, COPD, HTN, HLD, admitted for further evaluation and treatment of diarrhea Plan: Diarrhea - one episode of brown, non bloody diarrhea this morning - C. Diff ag/toxin negative - Fecal Leukocytes: negative - BCx: negative x1 - f/u repeat C. diff - Ova/parasite: f/u - Stool cx: f/u - Stool occult: negative - NS @50mls/hr - Zyvox 600mg GT q12 (day 9) - ID consulted: Dr. Seth [place] infection of face & neck - Patient admitted and treated at [facility] with Vancomycin and Zyvox x6 days, discharged on Zyvox 600mg GT Q12hr for total of 14 days. - Zyvox 600mg IV q12 (day 9) - ID consulted, Dr. Seth Intertrigo - Nystatin cream, apply topically to affected area TID Squamous Cell Laryngeal Carcinoma - outpatient oncologist: Dr. Dunlap - outpatient radiologist oncologist: Dr. Randall - Patient last received radiation and chemotherapy (Erbitux) on 05/05/18, will continue all treatment outpatient - Heme/onc consulted: Dr. Dunlap COPD - Continue duonebs Q3h HTN - Norvasc 2.5mg GT daily - Coreg 3.125mg GT bid DMII - A1c: 6.6 - ISS - Hypoglycemia protocol - Continue to monitor CAD - s/p stents in 2010 - Crestor 10mg GT HS - Plavix 75mg GT daily - ASA 81mg GT daily PPX - Heparin 5000u SC Q8h daily - Pepcid 40mg daily - Continue Tube feeding- Glycerna, 6oz Bolus QID with flush. Consider change to Jevity if further episodes of diarrhea. Patient seen with and case reviewed with Dr. Ortiz <Kanu Ortiz - Last Filed: 05/20/18 18:50> Objective - Vital Signs/Intake and Output Vital Signs (last 24 hours): Temp Pulse Resp BP Pulse Ox 97.6 F 65 20 144/71 99 05/20/18 15:59 05/20/18 15:59 05/20/18 15:59 05/20/18 15:59 05/20/18 15:59 Intake and Output: 05/20/18 05/20/18 06:59 18:59 Intake Total 480 1150 Balance 480 1150 - Medications Medications: Current Medications Albuterol/Ipratropium (Duoneb 3 Mg/0.5 Mg (3 Ml) Ud) 3 ml INH RQ4 [facility] Last Admin: 05/20/18 08:25 Dose: 3 ml Amlodipine Besylate (Norvasc) 2.5 mg PEG DAILY [facility] Last Admin: 05/20/18 10:22 Dose: 2.5 mg Aspirin (Aspirin Chewable) 81 mg GT DAILY [facility] Last Admin: 05/20/18 10:22 Dose: 81 mg Carvedilol (Coreg) 3.125 mg GT BID [facility] Last Admin: 05/20/18 17:14 Dose: 3.125 mg Clopidogrel Bisulfate (Plavix) 75 mg GT DAILY [facility] Last Admin: 05/20/18 10:21 Dose: 75 mg Famotidine (Pepcid) 40 mg GT DAILY [facility] Last Admin: 05/20/18 10:21 Dose: 40 mg Heparin Sodium (Porcine) (Heparin) 5,000 units SC Q8 [facility] Last Admin: 05/20/18 14:39 Dose: 5,000 units Sodium Chloride (Sodium Chloride 0.9%) 1,000 mls @ 50 mls/hr IV .Q20H [facility] Last Admin: 05/20/18 14:36 Dose: 50 mls/hr Linezolid (Zyvox 600mg/300ml D5w) 600 mg in 300 mls @ 300 mls/hr IVPB Q12H [facility] Last Admin: 05/20/18 17:14 Dose: 300 mls/hr Influenza Virus Vaccine (Fluzone Quad [id number]) 60 mcg IM .ONCE ONE Stop: 05/21/18 10:01 Insulin Human Regular (Novolin R) 0 unit SC ACHS [facility]; Protocol Last Admin: 05/20/18 16:42 Dose: Not Given Multivitamins/Minerals (Therapeutic-M Tab) 1 tab PO DAILY [facility] Last Admin: 05/20/18 10:22 Dose: 1 tab Nystatin (Mycostatin Cream) 1 ea TOP TID [facility] Last Admin: 05/20/18 14:41 Dose: 1 applic Pneumococcal Polyvalent Vaccine (Pneumovax 23 Vaccine) 0.5 ml IM .ONCE ONE Stop: 05/21/18 10:01 Rosuvastatin Calcium (Crestor) 10 mg PEG HS [facility] Last Admin: 05/19/18 21:22 Dose: 10 mg - Labs Labs: 05/20/18 06:12 05/20/18 06:12 PT 11.3 SECONDS (9.7-12.2) 05/19/18 13:31 INR 1.0 05/19/18 13:31 APTT 31 SECONDS (21-34) 05/19/18 13:31 Attending/Attestation - Attestation I have personally seen and examined this patient.: Yes I have fully participated in the care of the patient.: Yes I have reviewed all pertinent clinical information, including history, physical exam and plan: Yes Notes (Text): seen and examined,patient has neck skin changes due to radiation.Denies pain,sitting comfortable on bed spoke to daughter. she was brought for evaluation of diarrhea. As per daughter watery diarrhea multiple times a day no fever,getting Glucerna feeding at home,s/p discharge home on zyvox on wednesday. she wss getting radiation and follows DR Duran. Patient was following DR Dunlap and had chemo? 05/04/18 we will continue home meds,stool cd,stool study,hydration as needed Assessment and the plan discussed with the resident and I agree with the documentation
[2018-05-20] MEDS: Sodium Chloride 0.9% 1,000 ML IV SCH (14:36)
[2018-05-20] MEDS ORDERED: Potassium Chloride 20 mEq/15 ml LIQ UD GT ONE (15:48)
--- NOTE | 2018-05-20 19:35 | CP.PCM.CON ---
History of Present Illness - History of Present Illness History of Present Illness: 73 year old female with a history of squamous cell laryngeal cancer was admitted with complaints of watery diarrhea for 24 hours. She was recently discharged on 05/17/18, from [facility] for a staph infection of the lower face and neck. She was treated with IV vanco and zyvox for 6 days and then discharged with Zyvox 600mg GT Q12h for a total 14 days. ID consulted for this PMHx: squamous cell laryngeal cancer, CAD, HTN, HLD, COPD, hypothyroidism SurgHx: Trach 10/2017, PEG 11/2017, Cardiac stents 2000, appendectomy, endoscopy FamHx: Father- [place] SocHx: 60+packyear; denies alcohol and drugs; lives with daughter, Megan ([phone]), in . 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 Allergies: NKDA Medications: Zyvox 600mg GT Q12h, Duonebs; otherwise, daughter was unsure- will bring medication list. Review of Systems - Constitutional Constitutional: Headache. absent: Fever - EENT Ears: absent: Dizziness Additional comments: Trach present; Staph skin infection of the lower face and neck (improving) - Breasts Breasts: Skin Changes (rash b/l under breasts) - Cardiovascular Cardiovascular: absent: Chest Pain, Dyspnea, Edema, Leg Edema, Palpitations - Respiratory Respiratory: absent: Dyspnea Additional comments: Trach present. - Gastrointestinal Gastrointestinal: Diarrhea, Loose Stools. absent: Abdominal Pain, Constipation, Hematemesis, Hematochezia, Melena, Nausea, Vomiting Additional comments: PEG present - Genitourinary Genitourinary: absent: Dysuria, Hematuria, Pyuria, Urinary Frequency - Musculoskeletal Musculoskeletal: absent: Back Pain - Neurological Neurological: Headaches. absent: Dizziness - Hematologic/Lymphatic Hematologic: Easy Bruising Past Patient History - Infectious Disease Hx of Infectious Diseases: None - Past Medical History & Family History Past Medical History?: Yes - Past Social History Smoking Status: Former Smoker - CARDIAC Hx Congestive Heart Failure: Yes Hx Hypercholesterolemia: Yes Hx Hypertension: Yes - PULMONARY Hx Chronic Obstructive Pulmonary Disease (COPD): Yes - NEUROLOGICAL Hx Neurological Disorder: No - HEENT Hx HEENT Problems: Yes Other/Comment: HX: RIGHT JUGULARY LYMPH NODE BX.(10/12/17). HX: VOCAL CORD POLYP - RENAL Hx Chronic Kidney Disease: No Hx Kidney Stones: No - ENDOCRINE/METABOLIC Hx Hypothyroidism: Yes - HEMATOLOGICAL/ONCOLOGICAL Hx Blood Disorders: Yes Hx Cancer: Yes (Larynx) Hx Shingles: Yes - INTEGUMENTARY Hx Dermatological Problems: No - MUSCULOSKELETAL/RHEUMATOLOGICAL Hx Falls: No - GASTROINTESTINAL Hx Gastrointestinal Disorders: No - GENITOURINARY/GYNECOLOGICAL Hx Genitourinary Disorders: No - PSYCHIATRIC Hx Substance Use: No - SURGICAL HISTORY Hx Appendectomy: Yes - ANESTHESIA Hx Anesthesia: Yes Hx Anesthesia Reactions: No Hx Malignant Hyperthermia: No Meds Allergies/Adverse Reactions: Allergies Allergy/AdvReac Type Severity Reaction Status Date / Time No Known Allergies Allergy Verified 05/19/18 12:25 - Medications Medications: Current Medications Albuterol/Ipratropium (Duoneb 3 Mg/0.5 Mg (3 Ml) Ud) 3 ml INH RQ4 [facility] Last Admin: 05/20/18 08:25 Dose: 3 ml Amlodipine Besylate (Norvasc) 2.5 mg PEG DAILY [facility] Last Admin: 05/20/18 10:22 Dose: 2.5 mg Aspirin (Aspirin Chewable) 81 mg GT DAILY [facility] Last Admin: 05/20/18 10:22 Dose: 81 mg Carvedilol (Coreg) 3.125 mg GT BID [facility] Last Admin: 05/20/18 17:14 Dose: 3.125 mg Clopidogrel Bisulfate (Plavix) 75 mg GT DAILY [facility] Last Admin: 05/20/18 10:21 Dose: 75 mg Famotidine (Pepcid) 40 mg GT DAILY [facility] Last Admin: 05/20/18 10:21 Dose: 40 mg Heparin Sodium (Porcine) (Heparin) 5,000 units SC Q8 [facility] Last Admin: 05/20/18 14:39 Dose: 5,000 units Sodium Chloride (Sodium Chloride 0.9%) 1,000 mls @ 50 mls/hr IV .Q20H [facility] Last Admin: 05/20/18 14:36 Dose: 50 mls/hr Linezolid (Zyvox 600mg/300ml D5w) 600 mg in 300 mls @ 300 mls/hr IVPB Q12H [facility] Last Admin: 05/20/18 17:14 Dose: 300 mls/hr Influenza Virus Vaccine (Fluzone Quad [id number]) 60 mcg IM .ONCE ONE Stop: 05/21/18 10:01 Insulin Human Regular (Novolin R) 0 unit SC ACHS [facility]; Protocol Last Admin: 05/20/18 16:42 Dose: Not Given Multivitamins/Minerals (Therapeutic-M Tab) 1 tab PO DAILY [facility] Last Admin: 05/20/18 10:22 Dose: 1 tab Nystatin (Mycostatin Cream) 1 ea TOP TID [facility] Last Admin: 05/20/18 14:41 Dose: 1 applic Pneumococcal Polyvalent Vaccine (Pneumovax 23 Vaccine) 0.5 ml IM .ONCE ONE Stop: 05/21/18 10:01 Rosuvastatin Calcium (Crestor) 10 mg PEG HS [facility] Last Admin: 05/19/18 21:22 Dose: 10 mg Physical Exam - Constitutional Appears: No Acute Distress, Chronically Ill - Head Exam Head Exam: ATRAUMATIC, NORMOCEPHALIC - Eye Exam Eye Exam: PERRL. absent: Scleral icterus - ENT Exam ENT Exam: Mucous Membranes Dry Additional comments: trach + - Neck Exam Neck exam: Negative for: Lymphadenopathy - Respiratory Exam Respiratory Exam: Decreased Breath Sounds - Cardiovascular Exam Cardiovascular Exam: REGULAR RHYTHM, +S1, +S2 - GI/Abdominal Exam GI & Abdominal Exam: Diminished Bowel Sounds, Soft. absent: Tenderness - Rectal Exam Rectal Exam: Deferred - Exam Exam: NORMAL INSPECTION - Extremities Exam Extremities exam: Positive for: pedal pulses present. Negative for: pedal edema, tenderness - Back Exam Back exam: absent: CVA tenderness (L), CVA tenderness (R) - Neurological Exam Neurological exam: Alert, CN II-XII Intact, Oriented x3, Reflexes Normal - Psychiatric Exam Psychiatric exam: Depressed - Skin Skin Exam: Dry, Intact Results - Vital Signs Recent Vital Signs: Last Vital Signs Temp 97.6 F 05/20/18 15:59 Pulse 65 05/20/18 15:59 Resp 20 05/20/18 15:59 BP 144/71 05/20/18 15:59 Pulse Ox 99 05/20/18 15:59 - Labs Result Diagrams: 05/20/18 06:12 05/20/18 06:12 Labs: Laboratory Results - last 24 hr 05/19/18 05/19/18 05/19/18 06:00 21:23 23:06 WBC RBC Hgb Hct MCV MCH MCHC RDW Plt Count MPV Neut % (Auto) Lymph % (Auto) [place] % (Auto) Eos % (Auto) Baso % (Auto) Neut # (Auto) Lymph # (Auto) [place] # (Auto) Eos # (Auto) Baso # (Auto) Sodium Potassium Chloride Carbon Dioxide Anion Gap BUN Creatinine Est GFR ( Amer) Est GFR (Non-Af Amer) POC Glucose (mg/dL) 150 H Random Glucose Hemoglobin A1c Calcium Phosphorus Magnesium Total Bilirubin AST ALT Alkaline Phosphatase Total Protein Albumin Globulin Albumin/Globulin Ratio Urine Color Urine Clarity Urine pH Ur Specific [place] Urine Protein Urine Glucose (UA) Urine Ketones Urine Blood Urine Nitrate Urine Bilirubin Urine Urobilinogen Ur Leukocyte Esterase Urine WBC (Auto) Urine RBC (Auto) Ur Squamous Epith Cells Urine Bacteria Urine Yeast (Budding) Stool Occult Blood Negative Stool Leukocytes, Qual Negative 05/20/18 05/20/18 05/20/18 06:12 06:12 06:12 WBC 4.4 L RBC 3.55 L Hgb 9.8 L Hct 29.3 L MCV 82.5 MCH 27.6 MCHC 33.5 RDW 15.5 H Plt Count 210 MPV 7.9 Neut % (Auto) 68.1 Lymph % (Auto) 11.6 L [place] % (Auto) 16.3 H Eos % (Auto) 3.1 Baso % (Auto) 0.9 Neut # (Auto) 3.0 Lymph # (Auto) 0.5 L [place] # (Auto) 0.7 Eos # (Auto) 0.1 Baso # (Auto) 0.0 Sodium 140 Potassium 3.2 L Chloride 102 Carbon Dioxide 31 H Anion Gap 10 BUN 16 Creatinine 0.6 L Est GFR ( Amer) > 60 Est GFR (Non-Af Amer) > 60 POC Glucose (mg/dL) Random Glucose 92 Hemoglobin A1c 6.6 H Calcium 8.5 L Phosphorus 3.9 Magnesium 1.9 Total Bilirubin 0.4 AST 28 ALT 37 Alkaline Phosphatase 72 Total Protein 5.6 L Albumin 2.9 L D Globulin 2.7 Albumin/Globulin Ratio 1.1 Urine Color Urine Clarity Urine pH Ur Specific [place] Urine Protein Urine Glucose (UA) Urine Ketones Urine Blood Urine Nitrate Urine Bilirubin Urine Urobilinogen Ur Leukocyte Esterase Urine WBC (Auto) Urine RBC (Auto) Ur Squamous Epith Cells Urine Bacteria Urine Yeast (Budding) Stool Occult Blood Stool Leukocytes, Qual 05/20/18 05/20/18 05/20/18 06:44 08:29 11:06 WBC RBC Hgb Hct MCV MCH MCHC RDW Plt Count MPV Neut % (Auto) Lymph % (Auto) [place] % (Auto) Eos % (Auto) Baso % (Auto) Neut # (Auto) Lymph # (Auto) [place] # (Auto) Eos # (Auto) Baso # (Auto) Sodium Potassium Chloride Carbon Dioxide Anion Gap BUN Creatinine Est GFR ( Amer) Est GFR (Non-Af Amer) POC Glucose (mg/dL) 107 118 H Random Glucose Hemoglobin A1c Calcium Phosphorus Magnesium Total Bilirubin AST ALT Alkaline Phosphatase Total Protein Albumin Globulin Albumin/Globulin Ratio Urine Color Yellow Urine Clarity Hazy Urine pH 7.0 Ur Specific [place] 1.015 Urine Protein Negative Urine Glucose (UA) Normal Urine Ketones Negative Urine Blood Negative Urine Nitrate Negative Urine Bilirubin Negative Urine Urobilinogen Normal Ur Leukocyte Esterase 3+ H Urine WBC (Auto) 11 H Urine RBC (Auto) 6 H Ur Squamous Epith Cells 4 Urine Bacteria Occ H Urine Yeast (Budding) Mod H Stool Occult Blood Stool Leukocytes, Qual 05/20/18 16:16 WBC RBC Hgb Hct MCV MCH MCHC RDW Plt Count MPV Neut % (Auto) Lymph % (Auto) [place] % (Auto) Eos % (Auto) Baso % (Auto) Neut # (Auto) Lymph # (Auto) [place] # (Auto) Eos # (Auto) Baso # (Auto) Sodium Potassium Chloride Carbon Dioxide Anion Gap BUN Creatinine Est GFR ( Amer) Est GFR (Non-Af Amer) POC Glucose (mg/dL) 109 Random Glucose Hemoglobin A1c Calcium Phosphorus Magnesium Total Bilirubin AST ALT Alkaline Phosphatase Total Protein Albumin Globulin Albumin/Globulin Ratio Urine Color Urine Clarity Urine pH Ur Specific [place] Urine Protein Urine Glucose (UA) Urine Ketones Urine Blood Urine Nitrate Urine Bilirubin Urine Urobilinogen Ur Leukocyte Esterase Urine WBC (Auto) Urine RBC (Auto) Ur Squamous Epith Cells Urine Bacteria Urine Yeast (Budding) Stool Occult Blood Stool Leukocytes, Qual Assessment & Plan (1) Dehydration Status: Acute (2) Diarrhea Status: Acute (3) Staphylococcal infection Status: Acute (4) Laryngeal squamous cell carcinoma Status: Chronic - Assessment and Plan (Free Text) Assessment: renew zyvox await cultures and stool work up consider d/c zyvox if diarrhea persists
[2018-05-21] MEDS: Albuterol-Ipratrop 3 mg / 0.5 (3 ml) UD INH SCH ×6 (00:33→19:36)
[2018-05-21] MEDS: Linezolid 600 mg in D5W 300 ml 600 MG/300 ML BAG IVPB SCH ×2 (05:11→17:48)
[2018-05-21] MEDS: (Novolin R) Insulin Human Regular 100 units/ml vial SC SCH ×4 (07:57→21:34)
--- NOTE | 2018-05-21 08:33 | CP.PCM.PN ---
Subjective - Date & Time of Evaluation Date of Evaluation: 05/21/18 Time of Evaluation: 08:33 - Subjective Subjective: Medicine progress note for Dr. Ortiz Patient was seen and examined at bedside in on acute distress. She reports having 1 episode of loose stool today. Patient denies chest pain, headaches, abdominal pain, nausea, vomiting, fevers. Objective - Vital Signs/Intake and Output Vital Signs (last 24 hours): Temp Pulse Resp BP Pulse Ox 98.9 F 67 20 144/74 98 05/21/18 07:32 05/21/18 07:32 05/21/18 07:32 05/21/18 07:32 05/21/18 07:32 Intake and Output: 05/21/18 05/21/18 06:59 18:59 Intake Total 600 600 Output Total 500 1 Balance 100 599 - Medications Medications: Current Medications Albuterol/Ipratropium (Duoneb 3 Mg/0.5 Mg (3 Ml) Ud) 3 ml INH RQ4 [facility] Last Admin: 05/21/18 04:39 Dose: 3 ml Amlodipine Besylate (Norvasc) 2.5 mg PEG DAILY [facility] Last Admin: 05/20/18 10:22 Dose: 2.5 mg Aspirin (Aspirin Chewable) 81 mg GT DAILY [facility] Last Admin: 05/20/18 10:22 Dose: 81 mg Carvedilol (Coreg) 3.125 mg GT BID [facility] Last Admin: 05/20/18 17:14 Dose: 3.125 mg Clopidogrel Bisulfate (Plavix) 75 mg GT DAILY [facility] Last Admin: 05/20/18 10:21 Dose: 75 mg Famotidine (Pepcid) 40 mg GT DAILY [facility] Last Admin: 05/20/18 10:21 Dose: 40 mg Heparin Sodium (Porcine) (Heparin) 5,000 units SC Q8 [facility] Last Admin: 05/21/18 05:08 Dose: 5,000 units Sodium Chloride (Sodium Chloride 0.9%) 1,000 mls @ 50 mls/hr IV .Q20H [facility] Last Admin: 05/20/18 14:36 Dose: 50 mls/hr Linezolid (Zyvox 600mg/300ml D5w) 600 mg in 300 mls @ 300 mls/hr IVPB Q12H [facility] Last Admin: 05/21/18 05:11 Dose: 300 mls/hr Influenza Virus Vaccine (Fluzone Quad [id number]) 60 mcg IM .ONCE ONE Stop: 05/21/18 10:01 Insulin Human Regular (Novolin R) 0 unit SC ACHS [facility]; Protocol Last Admin: 05/21/18 07:57 Dose: Not Given Multivitamins/Vitamin C (Multi-Delyn Liquid) 5 ml PO DAILY [facility] Nystatin (Mycostatin Cream) 1 ea TOP TID [facility] Last Admin: 05/20/18 18:00 Dose: 1 applic Pneumococcal Polyvalent Vaccine (Pneumovax 23 Vaccine) 0.5 ml IM .ONCE ONE Stop: 05/21/18 10:01 Rosuvastatin Calcium (Crestor) 10 mg PEG HS [facility] Last Admin: 05/20/18 21:18 Dose: 10 mg - Labs Labs: 05/20/18 06:12 05/20/18 06:12 PT 11.3 SECONDS (9.7-12.2) 05/19/18 13:31 INR 1.0 05/19/18 13:31 APTT 31 SECONDS (21-34) 05/19/18 13:31 - Additional Findings Additional findings: - Constitutional Appears: No Acute Distress - ENT Exam Additional comments: Trach in place; extensive skin infection of the lower face and neck - Neck Exam Additional comments: extensive skin infection of the lower face and neck - Respiratory Exam Respiratory Exam: Rhonchi. absent: Clear to Auscultation Bilateral, Respiratory Distress Additional comments: Congestion - Cardiovascular Exam Additional comments: Difficult to assess due to loud breath sounds and congestion. - GI/Abdominal Exam GI & Abdominal Exam: Normal Bowel Sounds, Soft. absent: Distended, Firm, Guarding, Tenderness Additional comments: PEG in place; dressing clean, dry, intact; no erythema or skin lesions around PEG site - Extremities Exam Extremities exam: Positive for: normal inspection, pedal pulses present. Negative for: pedal edema, tenderness - Back Exam Back exam: NORMAL INSPECTION - Neurological Exam Neurological exam: Alert, Oriented x3 - Psychiatric Exam Psychiatric exam: Normal Affect, Normal Mood - Skin Additional comments: extensive skin infection of the lower face and neck; bruising on RUE from prior hospitalization (IV sites); inframammary intertrigo b/l Assessment and Plan - Assessment and Plan (Free Text) Assessment: 73 yo F with a PMH of squamous cell laryngeal carcinoma, CHF, COPD, HTN, HLD, admitted for further evaluation and treatment of diarrhea Plan: Diarrhea - one episode of brown, non bloody diarrhea this morning - C. Diff ag/toxin negative - Fecal Leukocytes: negative - BCx: negative x1 - Ova/parasite: f/u - Stool cx: f/u - Stool occult: negative - NS @50mls/hr - Zyvox 600mg GT q12 - ID consulted: Dr. Seth - f/u repeat C. diff Staph infection of face & neck - Patient admitted and treated at [facility] with Vancomycin and Zyvox x6 days, discharged on Zyvox 600mg GT Q12hr for total of 14 days. - Zyvox 600mg IV q12 - ID consulted, Dr. Seth Intertrigo - Nystatin cream, apply topically to affected area TID Squamous Cell Laryngeal Carcinoma - outpatient oncologist: Dr. Dunlap - outpatient radiologist oncologist: Dr. Randall - Patient last received radiation and chemotherapy (Erbitux) on 05/05/18, will continue all treatment outpatient - Heme/onc consulted: Dr. Dunlap COPD - Continue duonebs Q3h HTN - Norvasc 2.5mg GT daily - Coreg 3.125mg GT bid DMII - A1c: 6.6 - ISS - Hypoglycemia protocol - Continue to monitor CAD - s/p stents in 2010 - Crestor 10mg GT HS - Plavix 75mg GT daily - ASA 81mg GT daily PPX - Heparin 5000u SC Q8h daily - Pepcid 40mg daily - Tube feeding- Jevity, 6oz Bolus QID with flush. Changed to Jevity (from Glucerna) due to additional episodes of diarrhea on 05/21. Patient seen with and case reviewed with Dr. Ortiz
[2018-05-21 08:47] LABS: BASO % 0.8 % (0.0-2.0); EOS # 0.2 K/uL (0.0-0.7); EOS % 4.3 % (0.0-4.0); HEMOGLOBIN 9.9 g/dL (11.0-16.0); LYMPH # 0.6 K/uL (1.0-4.3); LYMPH % 14.1 % (20.0-40.0); MEAN CELL VOLUME 81.3 fL (81.0-99.0); MEAN CORPUSCULAR HEMOGLOBIN 27.9 pg (27.0-31.0); MEAN CORPUSCULAR HGB CONC 34.3 g/dL (33.0-37.0); MEAN PLATELET VOLUME 7.7 fL (7.2-11.7); MONO # 0.7 K/uL (0.0-0.8); MONO % 15.9 % (0.0-10.0); NEUT # 2.9 K/uL (1.8-7.0); NEUT % 64.9 % (50.0-75.0); RBC 3.55 Mil/uL (3.80-5.20); RED CELL DISTRIBUTION WIDTH 15.6 % (11.5-14.5); WHITE BLOOD COUNT 4.5 K/uL (4.8-10.8)
[2018-05-21 09:05] LABS: ALB/GLOB RATIO 1.1 (1.0-2.1); ALBUMIN 2.9 g/dL (3.5-5.0); ALT/SGPT 33 U/L (9-52); AST/SGOT 29 U/L (14-36); BLOOD UREA NITROGEN 12 mg/dL (7-17); CALCIUM 8.7 mg/dl (8.6-10.4); GFR NON-AFRICAN AMERICAN > 60
[2018-05-21] MEDS ORDERED: Pneumococcal 23-Valent Vaccine IM ONE (10:00)
[2018-05-21] MEDS ORDERED: Influenza Vaccine 60 MCG/0.5 ML SYR (3 yr & up) IM ONE (10:00)
[2018-05-21] MEDS: Sodium Chloride 0.9% 1,000 ML IV SCH ×2 (10:25→14:39)
[2018-05-21] MEDS: Multiple Vitamins Oral Solution PO SCH (10:34)
[2018-05-21] MEDS: Nystatin 100,000 Units/gm Cream(15 gm) TOP SCH ×3 (10:35→17:49)
--- NOTE | 2018-05-21 19:53 | CP.PCM.CON ---
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 The patient has not received Erbitux since 04/1018 due to hospitalization at [facility] for neck cellulites and was discharged on antibiotics. She continues to have watery diarrhea. 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 Past Patient History - Infectious Disease Hx of Infectious Diseases: None - Past Medical History & Family History Past Medical History?: Yes - Past Social History Smoking Status: Former Smoker - CARDIAC Hx Congestive Heart Failure: Yes Hx Hypercholesterolemia: Yes Hx Hypertension: Yes - PULMONARY Hx Chronic Obstructive Pulmonary Disease (COPD): Yes - NEUROLOGICAL Hx Neurological Disorder: No - HEENT Hx HEENT Problems: Yes Other/Comment: HX: RIGHT JUGULARY LYMPH NODE BX.(10/12/17). HX: VOCAL CORD POLYP - RENAL Hx Chronic Kidney Disease: No Hx Kidney Stones: No - ENDOCRINE/METABOLIC Hx Hypothyroidism: Yes - HEMATOLOGICAL/ONCOLOGICAL Hx Blood Disorders: Yes Hx Cancer: Yes (Larynx) Hx Shingles: Yes - INTEGUMENTARY Hx Dermatological Problems: No - MUSCULOSKELETAL/RHEUMATOLOGICAL Hx Falls: No - GASTROINTESTINAL Hx Gastrointestinal Disorders: No - GENITOURINARY/GYNECOLOGICAL Hx Genitourinary Disorders: No - PSYCHIATRIC Hx Substance Use: No - SURGICAL HISTORY Hx Appendectomy: Yes - ANESTHESIA Hx Anesthesia: Yes Hx Anesthesia Reactions: No Hx Malignant Hyperthermia: No Meds Allergies/Adverse Reactions: Allergies Allergy/AdvReac Type Severity Reaction Status Date / Time No Known Allergies Allergy Verified 05/19/18 12:25 - Medications Medications: Current Medications Albuterol/Ipratropium (Duoneb 3 Mg/0.5 Mg (3 Ml) Ud) 3 ml INH RQ4 [facility] Last Admin: 05/21/18 19:36 Dose: 3 ml Amlodipine Besylate (Norvasc) 2.5 mg PEG DAILY [facility] Last Admin: 05/21/18 10:34 Dose: 2.5 mg Aspirin (Aspirin Chewable) 81 mg GT DAILY [facility] Last Admin: 05/21/18 10:34 Dose: 81 mg Carvedilol (Coreg) 3.125 mg GT BID [facility] Last Admin: 05/21/18 17:45 Dose: 3.125 mg Clopidogrel Bisulfate (Plavix) 75 mg GT DAILY [facility] Last Admin: 05/21/18 10:34 Dose: 75 mg Famotidine (Pepcid) 40 mg GT DAILY [facility] Last Admin: 05/21/18 10:34 Dose: 40 mg Heparin Sodium (Porcine) (Heparin) 5,000 units SC Q8 [facility] Last Admin: 05/21/18 14:39 Dose: 5,000 units Sodium Chloride (Sodium Chloride 0.9%) 1,000 mls @ 50 mls/hr IV .Q20H [facility] Last Admin: 05/21/18 14:39 Dose: 50 mls/hr Linezolid (Zyvox 600mg/300ml D5w) 600 mg in 300 mls @ 300 mls/hr IVPB Q12H [facility] Last Admin: 05/21/18 17:48 Dose: 300 mls/hr Insulin Human Regular (Novolin R) 0 unit SC ACHS [facility]; Protocol Last Admin: 05/21/18 16:45 Dose: Not Given Multivitamins/Vitamin C (Multi-Delyn Liquid) 5 ml PO DAILY [facility] Last Admin: 05/21/18 10:34 Dose: 5 ml Nystatin (Mycostatin Cream) 1 ea TOP TID [facility] Last Admin: 05/21/18 17:49 Dose: 1 applic Rosuvastatin Calcium (Crestor) 10 mg PEG HS [facility] Last Admin: 05/20/18 21:18 Dose: 10 mg Physical Exam - Head Exam Head Exam: ATRAUMATIC - Eye Exam Eye Exam: Normal appearance - ENT Exam ENT Exam: Mucous Membranes Dry - Respiratory Exam Respiratory Exam: NORMAL BREATHING PATTERN - Cardiovascular Exam Cardiovascular Exam: +S1, +S2 - GI/Abdominal Exam GI & Abdominal Exam: Normal Bowel Sounds Results - Vital Signs Recent Vital Signs: Last Vital Signs Temp 98.2 F 05/21/18 15:35 Pulse 63 05/21/18 15:35 Resp 20 05/21/18 15:35 BP 148/77 05/21/18 15:35 Pulse Ox 98 05/21/18 16:00 - Labs Result Diagrams: 05/21/18 08:27 05/21/18 08:27 Labs: Laboratory Results - last 24 hr 05/20/18 05/21/18 05/21/18 21:05 08:27 08:27 WBC 4.5 L RBC 3.55 L Hgb 9.9 L Hct 28.9 L MCV 81.3 MCH 27.9 MCHC 34.3 RDW 15.6 H Plt Count 221 MPV 7.7 Neut % (Auto) 64.9 Lymph % (Auto) 14.1 L [place] % (Auto) 15.9 H Eos % (Auto) 4.3 H Baso % (Auto) 0.8 Neut # (Auto) 2.9 Lymph # (Auto) 0.6 L [place] # (Auto) 0.7 Eos # (Auto) 0.2 Baso # (Auto) 0.0 Sodium 136 Potassium 3.7 Chloride 101 Carbon Dioxide 31 H Anion Gap 8 L BUN 12 Creatinine 0.6 L Est GFR ( Amer) > 60 Est GFR (Non-Af Amer) > 60 POC Glucose (mg/dL) 126 H Random Glucose 149 H Calcium 8.7 Phosphorus 3.2 Magnesium 1.9 Total Bilirubin 0.3 AST 29 ALT 33 Alkaline Phosphatase 76 Total Protein 5.4 L Albumin 2.9 L Globulin 2.6 Albumin/Globulin Ratio 1.1 C. difficile Ag & Toxin 05/21/18 13:51 WBC RBC Hgb Hct MCV MCH MCHC RDW Plt Count MPV Neut % (Auto) Lymph % (Auto) [place] % (Auto) Eos % (Auto) Baso % (Auto) Neut # (Auto) Lymph # (Auto) [place] # (Auto) Eos # (Auto) Baso # (Auto) Sodium Potassium Chloride Carbon Dioxide Anion Gap BUN Creatinine Est GFR ( Amer) Est GFR (Non-Af Amer) POC Glucose (mg/dL) Random Glucose Calcium Phosphorus Magnesium Total Bilirubin AST ALT Alkaline Phosphatase Total Protein Albumin Globulin Albumin/Globulin Ratio C. difficile Ag & Toxin Negative Assessment & Plan (1) Anemia Assessment and Plan: chronic disease and radiation effect transfusion support PRN Status: Chronic (2) Leukopenia Assessment and Plan: mild, no neutropenia Status: Acute (3) Laryngeal squamous cell carcinoma Assessment and Plan: on definitive Erbitux and radiation last dose of Erbitux 05/04/18 unlikely cause of diarrhea resume therapy as outpatient Thank you for this interesting consult. Status: Chronic
[2018-05-22] MEDS: Albuterol-Ipratrop 3 mg / 0.5 (3 ml) UD INH SCH ×5 (00:25→15:58)
[2018-05-22] MEDS: Linezolid 600 mg in D5W 300 ml 600 MG/300 ML BAG IVPB SCH (05:32)
[2018-05-22] MEDS: Sodium Chloride 0.9% 1,000 ML IV SCH ×2 (05:33→10:31)
[2018-05-22] MEDS: (Novolin R) Insulin Human Regular 100 units/ml vial SC SCH ×3 (08:38→17:08)
[2018-05-22 09:52] LABS: BASO % 0.8 % (0.0-2.0); EOS # 0.2 K/uL (0.0-0.7); HEMOGLOBIN 10.2 g/dL (11.0-16.0); LYMPH # 0.6 K/uL (1.0-4.3); LYMPH % 13.4 % (20.0-40.0); MEAN CORPUSCULAR HEMOGLOBIN 27.4 pg (27.0-31.0); MEAN CORPUSCULAR HGB CONC 33.5 g/dL (33.0-37.0); MEAN PLATELET VOLUME 7.8 fL (7.2-11.7); MONO # 0.7 K/uL (0.0-0.8); MONO % 15.6 % (0.0-10.0); NEUT # 2.8 K/uL (1.8-7.0); NEUT % 66.2 % (50.0-75.0); RBC 3.71 Mil/uL (3.80-5.20); RED CELL DISTRIBUTION WIDTH 15.5 % (11.5-14.5); WHITE BLOOD COUNT 4.2 K/uL (4.8-10.8)
[2018-05-22 09:59] LABS: ALB/GLOB RATIO 1.1 (1.0-2.1); ALBUMIN 2.9 g/dL (3.5-5.0); ALT/SGPT 34 U/L (9-52); AST/SGOT 32 U/L (14-36); BLOOD UREA NITROGEN 10 mg/dL (7-17); CALCIUM 8.6 mg/dl (8.6-10.4); GFR NON-AFRICAN AMERICAN > 60
[2018-05-22] MEDS: Nystatin 100,000 Units/gm Cream(15 gm) TOP SCH ×2 (10:11→17:09)
[2018-05-22] MEDS: Multiple Vitamins Oral Solution PO SCH (10:11)
--- NOTE | 2018-05-22 13:26 | CP.PCM.DIS ---
Provider - Provider Date of Admission: 05/19/18 16:15 Attending physician: Kanu Ortiz MD Consults: Oncologist: Dr. Dunlap ID: Dr. Seth Time Spent in preparation of Discharge (in minutes): 45 Hospital Course - Lab Results Lab Results: Micro Results 05/19/18 13:32 Blood Blood Culture - Preliminary NO GROWTH AFTER 48 HOURS 05/19/18 13:32 Blood Blood Culture - Preliminary NO GROWTH AFTER 48 HOURS Most Recent Lab Values WBC 4.2 K/uL (4.8-10.8) L 05/22/18 09:37 RBC 3.71 Mil/uL (3.80-5.20) L 05/22/18 09:37 Hgb 10.2 g/dL (11.0-16.0) L 05/22/18 09:37 Hct 30.4 % (34.0-47.0) L 05/22/18 09:37 MCV 82.0 fL (81.0-99.0) 05/22/18 09:37 MCH 27.4 pg (27.0-31.0) 05/22/18 09:37 MCHC 33.5 g/dL (33.0-37.0) 05/22/18 09:37 RDW 15.5 % (11.5-14.5) H 05/22/18 09:37 Plt Count 213 K/uL (130-400) 05/22/18 09:37 MPV 7.8 fL (7.2-11.7) 05/22/18 09:37 Neut % (Auto) 66.2 % (50.0-75.0) 05/22/18 09:37 Lymph % (Auto) 13.4 % (20.0-40.0) L 05/22/18 09:37 Wood % (Auto) 15.6 % (0.0-10.0) H 05/22/18 09:37 Eos % (Auto) 4.0 % (0.0-4.0) 05/22/18 09:37 Baso % (Auto) 0.8 % (0.0-2.0) 05/22/18 09:37 Neut # (Auto) 2.8 K/uL (1.8-7.0) 05/22/18 09:37 Lymph # (Auto) 0.6 K/uL (1.0-4.3) L 05/22/18 09:37 Wood # (Auto) 0.7 K/uL (0.0-0.8) 05/22/18 09:37 Eos # (Auto) 0.2 K/uL (0.0-0.7) 05/22/18 09:37 Baso # (Auto) 0.0 K/uL (0.0-0.2) 05/22/18 09:37 PT 11.3 SECONDS (9.7-12.2) 05/19/18 13:31 INR 1.0 05/19/18 13:31 APTT 31 SECONDS (21-34) 05/19/18 13:31 Sodium 136 mmol/L (132-148) 05/22/18 09:37 Potassium 3.9 mmol/L (3.6-5.2) 05/22/18 09:37 Chloride 100 mmol/L (98-107) 05/22/18 09:37 Carbon Dioxide 30 mmol/L (22-30) 05/22/18 09:37 Anion Gap 10 (10-20) 05/22/18 09:37 BUN 10 mg/dL (7-17) 05/22/18 09:37 Creatinine 0.6 mg/dL (0.7-1.2) L 05/22/18 09:37 Est GFR ( Amer) > 60 05/22/18 09:37 Est GFR (Non-Af Amer) > 60 05/22/18 09:37 POC Glucose (mg/dL) 126 mg/dL (65-110) H 05/20/18 21:05 Random Glucose 168 mg/dL (65-105) H 05/22/18 09:37 Hemoglobin A1c 6.6 % (4.2-6.5) H 05/20/18 06:12 Calcium 8.6 mg/dl (8.6-10.4) 05/22/18 09:37 Phosphorus 3.4 mg/dL (2.5-4.5) 05/22/18 09:37 Magnesium 1.8 mg/dL (1.6-2.3) 05/22/18 09:37 Total Bilirubin 0.3 mg/dL (0.2-1.3) 05/22/18 09:37 AST 32 U/L (14-36) 05/22/18 09:37 ALT 34 U/L (9-52) 05/22/18 09:37 Alkaline Phosphatase 67 U/L (38-126) 05/22/18 09:37 Total Creatine Kinase 30 U/L (30-135) 05/19/18 13:31 Total Protein 5.5 g/dL (6.3-8.3) L 05/22/18 09:37 Albumin 2.9 g/dL (3.5-5.0) L 05/22/18 09:37 Globulin 2.6 gm/dL (2.2-3.9) 05/22/18 09:37 Albumin/Globulin Ratio 1.1 (1.0-2.1) 05/22/18 09:37 Urine Color Yellow (YELLOW) 05/20/18 06:44 Urine Clarity Hazy (Clear) 05/20/18 06:44 Urine pH 7.0 (5.0-8.0) 05/20/18 06:44 Ur Specific [place] 1.015 (1.003-1.030) 05/20/18 06:44 Urine Protein Negative mg/dL (NEGATIVE) 05/20/18 06:44 Urine Glucose (UA) Normal mg/dL (Normal) 05/20/18 06:44 Urine Ketones Negative mg/dL (NEGATIVE) 05/20/18 06:44 Urine Blood Negative (NEGATIVE) 05/20/18 06:44 Urine Nitrate Negative (NEGATIVE) 05/20/18 06:44 Urine Bilirubin Negative (NEGATIVE) 05/20/18 06:44 Urine Urobilinogen Normal mg/dL (0.2-1.0) 05/20/18 06:44 Ur Leukocyte Esterase 3+ Arnie/uL (Negative) H 05/20/18 06:44 Urine WBC (Auto) 11 /hpf (0-5) H 05/20/18 06:44 Urine RBC (Auto) 6 /hpf (0-3) H 05/20/18 06:44 Ur Squamous Epith Cells 4 /hpf (0-5) 05/20/18 06:44 Urine Bacteria Occ (<OCC) H 05/20/18 06:44 Urine Yeast (Budding) Mod /hpf (NEGATIVE) H 05/20/18 06:44 Stool Occult Blood Negative (NEGATIVE) 05/19/18 23:06 Stool Leukocytes, Qual Negative (NEGATIVE) 05/19/18 06:00 C. difficile Ag & Toxin Negative (NEGATIVE) 05/21/18 13:51 - Hospital Course Hospital Course: Patient is a 73 year old female with a history of squamous cell laryngeal cancer, CAD, HTN, HLD, COPD, and hypothyroidism, who presents with complaints of watery diarrhea for 24 hours. The patient was accompanied by daughter, Megan, who provides the history. The patient was recently discharged on 05/17/18, from [facility] for a staph infection of the lower face and neck. She was treated with IV vanco and zyvox for 6 days and then discharged with Zyvox 600mg GT Q12h for a total 14 days. Per the daughter, as of 24 hours ago, the patient developed watery diarrhea. She has had 5-6 episodes at home, and 2 in the ED. She denies blood in stool, fevers, abdominal pain, cramping, nausea, and vomiting. She also denies chest pain, palpitations, headache, dizziness, leg pain, back pain. At home, the patient is on Glycerna tube feeding, 6 oz, four times daily. She denies recent change in tube feeding. PMD: Dr. Eden Onc: Dr. Dunlap Radiology oncologist: Dr. Duran Satellite Tv Technician: Dr. Dumont PMHx: squamous cell laryngeal cancer, CAD, HTN, HLD, COPD, hypothyroidism SurgHx: Trach 10/2017, PEG 11/2017, Cardiac stents 2000, appendectomy, endoscopy FamHx: Father- [place] SocHx: 60+packyear; denies alcohol and drugs; lives with daughter, Megan ([phone]), in . Former washcloth folder. Allergies: NKDA Medications: Zyvox 600mg GT Q12h, Duonebs; otherwise, daughter was unsure- will bring medication list. Hospital course: Patient was admitted on 05/19/18 for diarrhea. Stool studies were ordered. C diff was negative x 2 (tested on 05/19 and 05/21). Fecal leukocytes, blood cultures were negative. ID (Dr. Seth) was consulted. Patient was previously prescribed Zyvox 600mg PO BID for a total of 14 days starting on . Zyvox 600 mg PO BID was continued during hospital course. On examintation, patient was found to have inframammary intertrigo and was prescribed Nystatin topical cream. Patient's outpatient oncologist was consulted, Dr. Dunlap, who requests continue outpatient follow up and to restart treatment for squamous cell laryngeal cancer. Patient's history of DM, HTN, COPD, CAD, were monitored and managed throughout hostpial course. Patient was seen and examined. SHe is no longer having watery diarrhea. Her last episode of soft stool was last night. Patient reports feeling well and has no complaints. ROS negative. Patient is stable for discharge to home. Patient must continue Zyvox 600mg PO BID (complete course of 14 days) and must continue all home medications. This is a brief summary of the hospital course. Please see EMR for more details. Discharge Exam - Additional Findings Additional findings: - Constitutional Appears: No Acute Distress - ENT Exam Additional comments: Trach in place; extensive skin infection of the lower face and neck - Neck Exam Additional comments: extensive skin infection of the lower face and neck - Respiratory Exam Respiratory Exam: Rhonchi. absent: Clear to Auscultation Bilateral, Respiratory Distress Additional comments: Congestion - Cardiovascular Exam Additional comments: Difficult to assess due to loud breath sounds and congestion. - GI/Abdominal Exam GI & Abdominal Exam: Normal Bowel Sounds, Soft. absent: Distended, Firm, Guarding, Tenderness Additional comments: PEG in place; dressing clean, dry, intact; no erythema or skin lesions around PEG site - Extremities Exam Extremities exam: Positive for: normal inspection, pedal pulses present. Negative for: pedal edema, tenderness - Back Exam Back exam: NORMAL INSPECTION - Neurological Exam Neurological exam: Alert, Oriented x3 - Psychiatric Exam Psychiatric exam: Normal Affect, Normal Mood - Skin Additional comments: extensive skin infection of the lower face and neck; bruising on RUE from prior hospitalization (IV sites); inframammary intertrigo b/l Discharge Plan - Follow Up Plan Condition: STABLE Disposition: HOME/ ROUTINE Additional Instructions: Patient is stable for discharge to home. Patient must continue all home medications. Patient must finish antibiotics previously prescribed by physician at [facility] (Zyvox 600mg PO BID for a total 14 days- patient has pr escription at home). Patient must follow up with PMD within 1 week of discharge. Patient must also follow up with oncologist, Dr. Dunlap within 1 week of discharge for further outpatient management. If symptoms worsen or reoccur, patient should return to nearest ED.
--- NOTE | 2018-05-22 17:47 | CP.PCM.PN ---
Subjective - Date & Time of Evaluation Date of Evaluation: 05/22/18 Time of Evaluation: 08:00 - Subjective Subjective: improving afeb IV rx renewed Objective - Vital Signs/Intake and Output Vital Signs (last 24 hours): Temp Pulse Resp BP Pulse Ox 98.7 F 69 20 133/72 100 05/22/18 07:38 05/22/18 07:38 05/22/18 07:38 05/22/18 07:38 05/22/18 08:16 Intake and Output: 05/22/18 05/22/18 06:59 18:59 Intake Total 0829 797 Balance 1251 797 - Medications Medications: Current Medications Albuterol/Ipratropium (Duoneb 3 Mg/0.5 Mg (3 Ml) Ud) 3 ml INH RQ4 [facility] Last Admin: 05/22/18 15:58 Dose: 3 ml Amlodipine Besylate (Norvasc) 2.5 mg PEG DAILY [facility] Last Admin: 05/22/18 10:11 Dose: 2.5 mg Aspirin (Aspirin Chewable) 81 mg GT DAILY [facility] Last Admin: 05/22/18 10:11 Dose: 81 mg Carvedilol (Coreg) 3.125 mg GT BID [facility] Last Admin: 05/22/18 17:07 Dose: 3.125 mg Clopidogrel Bisulfate (Plavix) 75 mg GT DAILY [facility] Last Admin: 05/22/18 10:11 Dose: 75 mg Famotidine (Pepcid) 40 mg GT DAILY [facility] Last Admin: 05/22/18 10:11 Dose: 40 mg Heparin Sodium (Porcine) (Heparin) 5,000 units SC Q8 [facility] Last Admin: 05/22/18 13:54 Dose: 5,000 units Sodium Chloride (Sodium Chloride 0.9%) 1,000 mls @ 50 mls/hr IV .Q20H [facility] Last Admin: 05/22/18 10:31 Dose: 50 mls/hr Linezolid (Zyvox 600mg/300ml D5w) 600 mg in 300 mls @ 300 mls/hr IVPB Q12H [facility] Last Admin: 05/22/18 05:32 Dose: 300 mls/hr Insulin Human Regular (Novolin R) 0 unit SC ACHS [facility]; Protocol Last Admin: 05/22/18 17:08 Dose: Not Given Multivitamins/Vitamin C (Multi-Delyn Liquid) 5 ml PO DAILY [facility] Last Admin: 05/22/18 10:11 Dose: 5 ml Nystatin (Mycostatin Cream) 1 ea TOP TID [facility] Last Admin: 05/22/18 17:09 Dose: 1 applic Rosuvastatin Calcium (Crestor) 10 mg PEG HS [facility] Last Admin: 05/21/18 21:33 Dose: 10 mg - Labs Labs: 05/22/18 09:37 05/22/18 09:37 PT 11.3 SECONDS (9.7-12.2) 05/19/18 13:31 INR 1.0 05/19/18 13:31 APTT 31 SECONDS (21-34) 05/19/18 13:31 - Constitutional Appears: Non-toxic, Chronically Ill - Head Exam Head Exam: NORMOCEPHALIC - Eye Exam Eye Exam: absent: Scleral icterus - ENT Exam ENT Exam: Mucous Membranes Dry - Neck Exam Neck Exam: absent: Lymphadenopathy - Respiratory Exam Respiratory Exam: Decreased Breath Sounds - Cardiovascular Exam Cardiovascular Exam: REGULAR RHYTHM - GI/Abdominal Exam GI & Abdominal Exam: Distended, Soft - Rectal Exam Rectal Exam: Deferred - Exam Exam: NORMAL INSPECTION Assessment and Plan (1) Dehydration Status: Acute (2) Diarrhea Status: Acute (3) Staphylococcal infection Status: Acute (4) Laryngeal squamous cell carcinoma Status: Chronic
[2018-05-22 18:24] VITALS: O2SAT 98
[2018-05-22 19:32] VITALS: BP 145/80; PULSE 55; TEMP 99.3
--- NOTE | 2018-05-23 17:59 | CARD ---
APPROVED REPORT Date of service: 05/19/2018 EKG Measurement Heart [id number] <Conclusion> Normal sinus rhythm Inferior infarct, age undetermined can not be excluded. Abnormal ECG
== END 2018-05-22 19:10 | disposition home or self-care (01) ==
LOC: C.ER 12:07 → C.3T 16:15
PROVIDERS: ADMIT Internal Medicine; ATTEND Internal Medicine
DX: R19.7 Diarrhea, unspecified (principal); Z95.5 Presence of coronary angioplasty implant and graft; Z93.0 Tracheostomy status; Z87.891 Personal history of nicotine dependence; Z85.21 Personal history of malignant neoplasm of larynx; J44.9 Chronic obstructive pulmonary disease, unspecified; I50.9 Heart failure, unspecified; I25.10 Atherosclerotic heart disease of native coronary artery without angina pectoris; I11.0 Hypertensive heart disease with heart failure; E86.0 Dehydration; E78.5 Hyperlipidemia, unspecified; E11.9 Type 2 diabetes mellitus without complications; E03.9 Hypothyroidism, unspecified; D72.819 Decreased white blood cell count, unspecified; B95.8 Unspecified staphylococcus as the cause of diseases classified elsewhere; L30.4 Erythema intertrigo
CPT/HCPCS: 31720; 36415; 71045; 80053; 81001; 82550; 82948; 83036; 83735; 84100; 85025; 85610; 85730; 87040; 87177; 87209; 87230; 89055; 93005; 94640; 94760; 96360; 97162; 97166; 97530; 99285; G0328; G0378; G8978; G8979; G8987; G8988; J1644; J2020; J7030